=== PATIENT | female | born 1975 | race Caucasian/White ===

== ENCOUNTER 2024-07-07 11:53 | Emergency (ER) | payer MEDICAID, SELFPAY ==
[2024-07-07 11:54] VITALS: BP 128/75; PULSE 69; RESP 15; TEMP 36.1; O2SAT 98; BMI 41.5
--- NOTE | 2024-07-07 12:16 | EX.ED.VIS.UR ---
HPI <MAYNOR Zhu - Last Filed: 07/07/24 14:21> HPI - URI History of Present Illness Chief Complaint: Ear Problem Narrative Narrative: Patient presenting today due to pain, swelling, and redness to her left tragus that started last Monday. She went to urgent care on Monday and they started her on amoxicillin. She has had no relief and went back to urgent care today and they recommended she come here for evaluation. She reports swelling that extends down the left side of her neck. She denies fevers, chills, hearing loss, and injury to the area. She has a PMH of T2DM. ROS <MAYNOR Zhu - Last Filed: 07/07/24 14:21> ROS ED Constitutional Constitutional ED: Denies chills or fever(s) ENT ENT ED: Reports ear pain left Cardiovascular Cardiovascular: Denies chest pain Respiratory/Chest Respiratory/Chest: Denies dyspnea Gastrointestinal Gastrointestinal: Denies abdominal pain, nausea or vomiting Musculoskeletal Musculoskeletal: Denies arthralgias or myalgias Integumentary Denies rash Neurologic Neurologic: Denies weakness PFSH <MAYNOR Zhu - Last Filed: 07/07/24 14:21> PFSH Medical History no medical history Home Medications ?Medication ?Instructions ?Recorded ?Last Taken ?Type amoxicillin 875 mg-potassium 1 tab PO BID #14 tabs 07/07/24 Unknown Rx clavulanate 125 mg tablet Allergy/AdvReac Type Severity Reaction Status Date / Time No Known Allergies Allergy Verified 07/07/24 11:57 Family History no significant family his Surgical History no surgical history Social History Smoking Status: Current some day smoker tobacco type: cigarettes EXAM <MAYNOR Zhu - Last Filed: 07/07/24 14:21> Physical Exam Const Vital Signs: 07/07/24 11:54 07/07/24 13:58 Temperature 97 F L 96.1 F L Temperature Source Temporal Pulse Rate 69 65 Respiratory Rate 15 17 Blood Pressure 128/75 H 155/101 H Blood Pressure Mean 92 119 Pulse Ox 98 96 Oxygen Delivery Method Room Air Positive well nourished, well developed and no apparent distress General Appearance ED: well developed HEENT Reports normocephalic and head/scalp atraumatic HEENT Narrative: Bilateral TM and EAC clear, no pain to the bilateral mastoid processes. Pain, erythema, and swelling to the left tragus. Mild swelling to the left parotid gland. Mouth ED: Yes moist mucous membranes normal Throat: posterior oropharynx normal Eyes PERRL and EOMs intact bilaterally Neck full ROM and supple Neck Narrative: Left cervical anterior lymphadenopathy Chest Wall inspection of chest normal Resp normal respiratory effort and clear to auscultation bilaterally Cardio regular rate and regular rhythm Back/Spine normal ROM and normal to inspection Extremity normal to inspection and full ROM Neuro oriented x3, CN's II-XII intact bilaterally, moves all extremities, no focal motor deficits and no sensory deficits noted Sensorium / Orientation: awake and alert Psych mental status grossly normal and thought process normal Skin no rashes or lesions noted and no wounds <Dr. Davis Webb DO - Last Filed: 07/07/24 13:36> Physical Exam Const Vital Signs: 07/07/24 11:54 07/07/24 13:58 Temperature 97 F L 96.1 F L Temperature Source Temporal Pulse Rate 69 65 Respiratory Rate 15 17 Blood Pressure 128/75 H 155/101 H Blood Pressure Mean 92 119 Pulse Ox 98 96 Oxygen Delivery Method Room Air MDM <MAYNOR Zhu - Last Filed: 07/07/24 14:21> [facility] Narrative Medical decision making narrative: Patient presenting today due to concerns for slight swelling and erythema to the left tragus that has been ongoing since Monday she also developed slight swelling to the left parotid gland. Her EAC and TMs are clear bilaterally. No mastoid tenderness bilaterally. Exam is not consistent with malignant otitis externa. CBC obtained to assess for leukocytosis and is negative, BMP negative for kidney dysfunction or electrolyte derangement. CT scan soft tissue neck with IV contrast obtained to better assess the area and shows enlargement of the left parotid gland with reactive lymph nodes, findings are nonspecific but may represent parotitis. She also has mild thickening of the left auricular cartilage. She is currently taking amoxicillin, I will switch her to Augmentin. I did refer her to ENT and recommended she follow-up with either her PCP or ENT in the next 5 to 7 days. Return instructions were discussed with her. I recommended she apply warm compresses to the area and also she can try sucking on a sugar-free sour candy. She will be discharged home in stable condition. Lab Data Labs: Laboratory Results - last 24 hr 07/07/24 12:33 WBC 7.6 RBC 4.28 Hgb 12.4 Hct 38.4 MCV 89.7 MCH 29.0 MCHC 32.3 RDW Std Deviation 48.6 H RDW Coeff of Aiden 15.0 H Plt Count 246 MPV 12.7 H Immature Gran % (Auto) 0.400 Neut % (Auto) 63.7 Lymph % (Auto) 27.0 [place] % (Auto) 7.0 Eos % (Auto) 1.5 Baso % (Auto) 0.4 Absolute Neuts (auto) 4.8 Absolute Lymphs (auto) 2.04 Nucleated RBC % 0 Sodium 138 Potassium 4.1 Chloride 105 Carbon Dioxide 23.3 Anion Gap 10 BUN 12 Creatinine 0.77 Estim Creat Clear Calc 113.47 Est GFR (MDRD) Non-Af 95 BUN/Creatinine Ratio 15.8 Glucose 187 H Calcium 8.8 Radiography Diagnostic Testing: Clinical Impression(s) from Imaging Studies Soft Tissue Neck CT 07/07/24 12:26 IMPRESSION: 1. Asymmetric enlargement of the left parotid gland with scattered intraperitoneal nodes, likely reactive. Findings are nonspecific and may represent parotitis due to infection or inflammatory process. If patient's symptoms do not subside after treatment, recommend MRI in four weeks to evaluate for additional causes. 2. Mild asymmetric thickening of the left auricular cartilage, which is indeterminate in etiology but may represent perichondritis. No obvious extension into the external auditory canal. Clinical and physical exam correlation recommended. Reading Location: [id number] <Dr. Davis Webb, DO - Last Filed: 07/07/24 13:36> [facility] Lab Data Labs: Laboratory Results - last 24 hr 07/07/24 12:33 WBC 7.6 RBC 4.28 Hgb 12.4 Hct 38.4 MCV 89.7 MCH 29.0 MCHC 32.3 RDW Std Deviation 48.6 H RDW Coeff of Aiden 15.0 H Plt Count 246 MPV 12.7 H Immature Gran % (Auto) 0.400 Neut % (Auto) 63.7 Lymph % (Auto) 27.0 [place] % (Auto) 7.0 Eos % (Auto) 1.5 Baso % (Auto) 0.4 Absolute Neuts (auto) 4.8 Absolute Lymphs (auto) 2.04 Nucleated RBC % 0 Sodium 138 Potassium 4.1 Chloride 105 Carbon Dioxide 23.3 Anion Gap 10 BUN 12 Creatinine 0.77 Estim Creat Clear Calc 113.47 Est GFR (MDRD) Non-Af 95 BUN/Creatinine Ratio 15.8 Glucose 187 H Calcium 8.8 Radiography Diagnostic Testing: Clinical Impression(s) from Imaging Studies Soft Tissue Neck CT 07/07/24 12:26 IMPRESSION: 1. Asymmetric enlargement of the left parotid gland with scattered intraperitoneal nodes, likely reactive. Findings are nonspecific and may represent parotitis due to infection or inflammatory process. If patient's symptoms do not subside after treatment, recommend MRI in four weeks to evaluate for additional causes. 2. Mild asymmetric thickening of the left auricular cartilage, which is indeterminate in etiology but may represent perichondritis. No obvious extension into the external auditory canal. Clinical and physical exam correlation recommended. Reading Location: [facility] Treatment and Re-Evaluation Narrative: I have personally performed a face to face assessment of the patient and have reviewed the SU Note. I performed a substantive portion of the visit including all aspects of the following. My laurent findings include: History: Patient presents with pain and swelling to the left anterior ear. Patient states she went to the urgent care and was started on amoxicillin. Patient states this has not been helping. Patient states it is gradually getting worse. Patient describes the pain as sharp. Patient states nothing makes it better and nothing makes it worse. Patient admits to some subjective fevers but denies any chills. Exam: Vital signs are stable. Patient is afebrile. Patient is in no acute distress. The left external auditory canal and tympanic membrane are clear. There is some erythema over the tragus. There is some edema and mild tenderness anterior to the left ear in the parotid area. There is no fluctuance. There is no discharge or drainage. There is no purulent drainage from Stensen's duct. Neck is supple. Trachea is midline. There is no JVD. Heart was regular rate and rhythm. Lungs are clear and equal bilaterally. Cranial nerves II through XII are intact. There are no focal motor or sensory deficits noted. Medical Decision Making: Differential diagnosis includes abscess, parotitis, cellulitis, and otitis externa. CT scan of the soft tissue neck will be obtained to assess for abscess and parotitis. CBC will be obtained to assess for leukocytosis and anemia. Basic metabolic profile will be obtained to assess for electrolyte abnormality and renal function. Patient was given a dose of Toradol here. CBC was reviewed and was within normal limits. Basic metabolic profile was reviewed. Glucose was mildly elevated at 187. The remainder is within normal limits. CT scan of the soft tissue neck was obtained. There is asymmetric enlargement of the left parotid gland with scattered intraparotid lymph nodes. These are likely reactive. There is mild thickening of the left auricular cartilage. There is no abscess noted. There is no extension into the external auditory canal. This was interpreted by the radiologist and was also independently reviewed by myself. Patient was advised of her findings. Patient was switched to Augmentin. Patient was instructed to stop the amoxicillin. Patient was instructed to follow-up with her primary care physician in 5 to 7 days. Patient was instructed return if worse in any way. Patient understood and was agreeable with the plan. All questions were answered. Discharge Plan Triage Chief Complaint: Ear Problem ED Midlevel Provider: Elmira Quijano ED Provider: Davis Webb Dx/Rx/DC Orders Clinical Impression: Swelling of left external ear, Parotid gland fullness Instructions: ED Salivary Gland Swelling UKO Prescriptions: New amoxicillin-pot clavulanate 875-125 mg tablet 1 tab PO BID Qty: 14 0RF Primary Care Provider: Care Physician,No Primary Referrals: Madi Gifford MD [Med Staff - Courtesy Staff] - 1 Week Care Physician,No Primary [Primary Care Provider] - Activity Restrictions/Additional Instructions: Follow-up with ENT in 1 week if no improvement of your symptoms. Apply warm compresses to the area several times daily. You could also try sucking on sugar-free sour candy to help produce saliva. Print Language: Cymro Disposition Disposition: Home, Self Care Discharge Date/Time: 07/07/24 13:59
--- NOTE | 2024-07-07 12:26 | CT_ITS ---
PROCEDURE: SOFT TISSUE NECK WITH CONTRAST 07/07/2024 REASON FOR EXAM: 49-year-old female, L TRAGUS AND PAROTID SWELLING TECHNIQUE: CT of the soft tissues of the neck from the orbits to the upper mediastinum with intravenous contrast. CONTRAST: Isovue 370 VOLUME: 100 mL One or more dose reduction techniques were used (e.g., Automated exposure control, adjustment of the mA and/or kV according to patient size, use of iterative reconstruction technique). RADIATION DOSE SUMMARY: CTDlvol: 20 mGy DLP: 600 mGycm COMPARISON: None. FINDINGS: Airway: Midline and patent. Salivary glands: Asymmetric enlargement of the left parotid gland with scattered intraparotid lymph nodes. No discrete mass visualized. The bilateral submandibular glands are unremarkable. Lymph nodes: Prominent left cervical chain nodes, for example a left level IIb lymph node (series 2, image 56) and left level Vc node (series 2, image 54). Thyroid: Unremarkable. Vasculature: Carotid arteries and internal jugular veins are unremarkable. Orbits: Unremarkable at visualized levels. Paranasal sinuses and mastoids: The mastoids and visualized paranasal sinuses are well-aerated. Lung apices: Clear. Upper mediastinum: Visualized mediastinum is unremarkable. Bones: Multilevel degenerative changes of the spine. Other: Mild asymmetric thickening of the left auricular cartilage. No obvious inflammation of the external auditory canal. CT/Soft Tissue Neck WITH Contrast IMPRESSION: 1. Asymmetric enlargement of the left parotid gland with scattered intraperiton eal nodes, likely reactive. Findings are nonspecific and may represent parotitis due to infection or inflammatory proces s. If patient's symptoms do not subside after treatment, recommend MRI in four weeks to evaluate for additional causes. 2. Mild asymmetric thickening of the left auricular cartilage, which is indeter minate in etiology but may represent perichondritis. No obvious extension into the external auditory canal. Clinic al and physical exam correlation recommended. Reading Location: [id number]
[2024-07-07 12:57] LABS: Anion Gap 10 (5-15); BUN 12 mg/dL (4-19); BUN/Creat Ratio 15.8 RATIO (10-20); Calcium,Total 8.8 mg/dL (7.6-11.0); Carbon Dioxide 23.3 mmol/L (21.0-32.0); Chloride 105 mmol/L (98-108); Creatinine, Serum 0.77 mg/dL (0.70-1.20); EST Glomerular Filtration Rate 95 (>60); Estimated Creatinine Clearance 113.47 ml/min (50-250); Glucose 187 mg/dL (70-99); Potassium 4.1 mmol/L (3.3-5.1); Sodium Level 138 mmol/L (133-145)
[2024-07-07 13:01] LABS: Absolute Lymphocyte Count 2.04 X10^3/uL (0.83-4.51); Absolute Neutrophil Count 4.8 X10^3/uL (2.0-7.7); Basophil# 0.03 X10^3/uL; Basophil% 0.4 % (0-1); Eosinophil# 0.11 X10^3/uL; Eosinophils% 1.5 % (0-5); Hematocrit 38.4 % (37-47); Hemoglobin 12.4 g/dL (12.0-15.0); Lymphocyte # 2.04 X10^3/ul (0.83-4.51); Mean Corp Hgb Conc 32.3 g/dL (32-36); Mean Corpuscular Volume 89.7 fL (81-99); Mean Platelet Vol. 12.7 fl (6.2-12.0); Monocyte# 0.53 X10^3/uL; NRBC Flagged by Analyzer 0 % (0-5); Neutrophil # 4.82 X10^3/uL (2.7-7.7); Neutrophil % 63.7 % (47-70); Platelet Count 246 K/mm3 (150-450); RBC Distribution Width SD 48.6 fl (35.1-43.9); Red Blood Count 4.28 M/mm3 (4.2-5.4); White Blood Count 7.6 K/mm3 (4.4-11.0)
[2024-07-07] MEDS: Ketorolac 15 MG/ML Vial IV (13:06)
[2024-07-07 13:58] VITALS: BP 155/101; PULSE 65; RESP 17; TEMP 35.6; O2SAT 96
== END 2024-07-07 13:59 | disposition home or self-care (01) ==
PROVIDERS: Physician Assistant; Emergency Provider Emergency Medicine; Visit Provider Emergency Medicine
DX: H93.8X2 Other specified disorders of left ear (principal); E11.9 Type 2 diabetes mellitus without complications; K11.8 Other diseases of salivary glands; F17.210 Nicotine dependence, cigarettes, uncomplicated
CPT/HCPCS: 70491; 80048; 85025; 96374; 99282; Q9967; A4216

== ENCOUNTER 2024-09-20 08:45 | Emergency (ER) | payer MEDICAID, SELFPAY ==
[2024-09-20 08:45] VITALS: BP 152/109; PULSE 88; RESP 16; TEMP 36.8; O2SAT 97; BMI 41.0
--- NOTE | 2024-09-20 09:17 | EX.ED.DYSGE1 ---
HPI History of Present Illness Chief Complaint: Rash Informant: patient Narrative Narrative: Patient is a 49-year-old female with history of diabetes mellitus (on weekly Trulicity as well as metformin) and hypertension presenting with rash to her hands and her feet. Been going on for about a month. She feels it is worsening. States it started as small splotches on her hands. She states it is itchy and she has a pins and needle sensation in her feet which is making it very hard for her to sleep. Was seen at urgent care earlier on the course and given some type of cream which does not recall the name of it. She states she ran out of the cream but did not think it was very helpful. Has never had a rash like this before. Was see about 2 months ago for swollen lymph node on her neck. She notes she has had very mild allergy symptoms and has not thought much of it. She denies any fevers. Denies any known history of syphilis or new sexual partners. Denies any other systemic symptoms. Is tried taking Tylenol as well with no relief. Notes her blood sugars have been running a little higher lately. Chart review shows that patient was seen on for left-sided submandibular swelling. Had CT consistent with asymmetric enlargement of left parotid gland with scattered intraparotid nodes, likely reactive. Most consistent with parotitis infectious versus inflammatory etiology. There is also some swelling of the left auricular cartilage which was indeterminant but could be perichondritis. Patient was treated with a course of Augmentin at that time. [facility] Medical History HTN (hypertension) Diabetes mellitus, type II Home Medications ?Medication ?Instructions ?Recorded ?Last Taken ?Type amoxicillin 875 mg-potassium 1 tab PO BID #14 tabs 07/07/24 Unknown Rx clavulanate 125 mg tablet cetirizine 10 mg tablet (Zyrtec) 10 mg PO DAILY #14 tabs 09/20/24 Unknown Rx clobetasol 0.05 % topical ointment 1 applic topical BID 2 weeks #60 09/20/24 Unknown Rx grams gabapentin 100 mg capsule 100 mg PO BID PRN nerve pain #20 09/20/24 Unknown Rx caps Allergy/AdvReac Type Severity Reaction Status Date / Time No Known Allergies Allergy Verified 09/20/24 08:45 Social History Smoking Status: Current some day smoker tobacco type: cigarettes ROS ROS ED Constitutional Constitutional ED: Denies chills or fever(s) ENT ENT ED: Denies sore throat Cardiovascular Cardiovascular: Denies chest pain Respiratory/Chest Respiratory/Chest: Denies cough or dyspnea Gastrointestinal Gastrointestinal: Denies nausea or vomiting Musculoskeletal Musculoskeletal: Denies arthralgias or myalgias Integumentary Reports rash Neurologic Neurologic: Reports paresthesias and other Details: Pins and needle sensation of the feet?new over the past month ; Denies weakness EXAM Physical Exam Const Vital Signs: 09/20/24 08:45 Temperature 98.2 F Temperature Source Oral Pulse Rate 88 Respiratory Rate 16 Blood Pressure 152/109 H Blood Pressure Mean 123 Pulse Ox 97 Oxygen Delivery Method Room Air Positive well nourished and well developed General Appearance ED: well developed and NAD HEENT Reports TM's clear and moist mucous membranes HEENT Narrative: Normal external ears. No pain with palpation of the ears. Subtle lymphadenopathy present of the left submandibular neck. Normal oropharynx. No lesions in the throat noted. Tympanic Membrane ED: Yes TM's clear Eyes PERRL Neck supple Chest Wall inspection of chest normal and palpation of chest normal Resp normal respiratory effort and clear to auscultation bilaterally Cardio regular rate and regular rhythm GI normal to inspection, nondistended, normoactive bowel sounds and non-tender Extremity normal to inspection Extremity Narrative: Mild tenderness in the bilateral feet around the heels. General Extremety ED: Negative for edema General Extremity: Negative for edema Neuro oriented x3 Sensorium / Orientation: alert Skin Skin Narrative: Scattered erythematous rash of the hands (including the palms) and feet (including the soles). There are mixed sizes of lesions in various stages of healing with scaling noted on the hands and the feet. Nonblanching with circumferential lesions that do seem to cluster around the cuticles, slightly raised as well as just throughout the hands/feet with mild tracking proximately throughout. Negative Nikolsky sign. No splinter hemorrhages appreciated. MDM MDM MDM Narrative Medical decision making narrative: Patient valuated for painful and itchy rash to her hands and feet. She is clinically well-appearing. No systemic symptoms. Differential includes secondary syphilis, dermatitis (suspect dyshidrotic eczema), viral illness. Will check basic labs including syphilis titer. These are largely normal. Glucose mildly elevated at 158. She does have a history of diabetes and I would like to avoid systemic steroids at this time. Patient reports understand this. Patient will give referral for dermatology. Will be started on superhigh potency steroids for this (clobetasol), daily Zyrtec and given short prescription for gabapentin for the pain in her feet as it is more of a neuropathy type pain. Is given follow-up information for dermatology. Discussed at this time I think this is safe for outpatient follow-up but likely more immune mediated versus allergy. She verbalized understanding of this. Discharged home in stable condition. Lab Data Attestation: I reviewed the patient's lab results. Labs: Laboratory Results - last 24 hr 09/20/24 09:13 WBC 8.7 RBC 4.41 Hgb 12.6 Hct 38.9 MCV 88.2 MCH 28.6 MCHC 32.4 RDW Std Deviation 50.8 H RDW Coeff of Aiden 15.7 H Plt Count 270 MPV 12.2 H Immature Gran % (Auto) 0.200 Neut % (Auto) 66.2 Lymph % (Auto) 24.7 [place] % (Auto) 7.3 Eos % (Auto) 1.1 Baso % (Auto) 0.5 Absolute Neuts (auto) 5.8 Absolute Lymphs (auto) 2.15 Nucleated RBC % 0 Sodium 141 Potassium 4.0 Chloride 107 Carbon Dioxide 23.5 Anion Gap 11 BUN 17 Creatinine 0.82 Estim Creat Clear Calc 105.67 Est GFR (MDRD) Non-Af 89 BUN/Creatinine Ratio 21.1 H Glucose 158 H Calcium 9.0 Total Bilirubin 0.31 AST 35 H ALT 60 H Alkaline Phosphatase 95 Total Protein 7.0 Albumin 4.0 Globulin 3.0 Albumin/Globulin Ratio 1.3 Syphilis Total Ab Nonreactive Discharge Plan Triage Chief Complaint: Rash ED Provider: Kerry Rutherford Dx/Rx/DC Orders Clinical Impression: Dermatitis, History of diabetes mellitus Instructions: ED Atopic Dermatitis (Adult) Prescriptions: New clobetasol 0.05 % ointment 1 applic topical BID 14 Days Qty: 60 0RF cetirizine [Zyrtec] 10 mg tablet 10 mg PO DAILY Qty: 14 0RF gabapentin 100 mg capsule 100 mg PO BID PRN (Reason: nerve pain) Qty: 20 0RF Rx Instructions: Start with once a day for 2 to 3 days and then may increase to twice a day after that. No Action amoxicillin-pot clavulanate 875-125 mg tablet 1 tab PO BID Qty: 14 0RF Primary Care Provider: Care Physician,No Primary Referrals: Bakari Tanner MD [Med Staff - Graphic Editor] - Care Physician,No Primary [Primary Care Provider] - Activity Restrictions/Additional Instructions: Your lab work was largely normal. Your blood sugar was mildly elevated at 158. Continue take your diabetic medications. I suspect this is some type of dermatitis likely dyshidrotic eczema versus viral (I suspect this is less likely). You been given a topical potent steroids to apply to your hands and feet twice a day. In the meantime try to use good lotion multiple times throughout the day to keep the skin nice and moist. I recommend Eucerin eczema lotion. And oil based lotion is preferred to a water base lotion. Please follow-up with dermatology. Print Language: Macedonian Disposition Disposition: Home, Self Care
[2024-09-20 09:22] LABS: Absolute Lymphocyte Count 2.15 X10^3/uL (0.83-4.51); Absolute Neutrophil Count 5.8 X10^3/uL (2.0-7.7); Basophil# 0.04 X10^3/uL; Basophil% 0.5 % (0-1); Eosinophils% 1.1 % (0-5); Hematocrit 38.9 % (37-47); Hemoglobin 12.6 g/dL (12.0-15.0); Lymphocyte # 2.15 X10^3/ul (0.83-4.51); Lymphocyte % 24.7 % (19-41); Mean Corp Hgb Conc 32.4 g/dL (32-36); Mean Corpuscular Hgb 28.6 pg (27.0-32.0); Mean Corpuscular Volume 88.2 fL (81-99); Mean Platelet Vol. 12.2 fl (6.2-12.0); Monocyte# 0.64 X10^3/uL; Monocyte% 7.3 % (0-10); NRBC Flagged by Analyzer 0 % (0-5); Neutrophil # 5.76 X10^3/uL (2.7-7.7); Neutrophil % 66.2 % (47-70); Platelet Count 270 K/mm3 (150-450); RBC Distribution Width CV 15.7 % (11.6-14.6); RBC Distribution Width SD 50.8 fl (35.1-43.9); Red Blood Count 4.41 M/mm3 (4.2-5.4); White Blood Count 8.7 K/mm3 (4.4-11.0)
[2024-09-20 09:55] LABS: ALB/GLOB Ratio 1.3 RATIO (0.9-2.4); AST(SGOT) 35 U/L (<=31); Alanine Aminotransfer ALT/SGPT 60 U/L (<=34); Alkaline Phosphatase 95 U/L (35-104); Anion Gap 11 (5-15); BUN 17 mg/dL (4-19); BUN/Creat Ratio 21.1 RATIO (10-20); Carbon Dioxide 23.5 mmol/L (21.0-32.0); Chloride 107 mmol/L (98-108); Creatinine, Serum 0.82 mg/dL (0.70-1.20); EST Glomerular Filtration Rate 89 (>60); Estimated Creatinine Clearance 105.67 ml/min (50-250); Glucose 158 mg/dL (70-99); Sodium Level 141 mmol/L (133-145); Syphilis Antibodies Nonreactive (Nonreactive); Total Bilirubin 0.31 mg/dL (0.00-1.30)
--- OUTSIDE RECORDS SUMMARY | 2024-09-20 10:08 | XMS RPT_ITS | CCD ---
Demographics Address [address] [place] [address] Mobile Phone Preferred Language en Marital Status Voodoo Affiliation Unknown Race White Ethnic Group Not or Lati no Author Organization [facility] Care Team Providers Care Staff Field Engineer Name Role Phone DELILAH KALI Attending Unavailable [facility] Unavailable EDWARDS EDWARDS, CHAGO CHAGO PALAK~[id number] Att ending Unavailable EDWARDS EDWARDS, CHAGO CHAGO PALAK~[id number] Att ending Unavailable PERI, AYAD Primary Care Unavailable EDWARDS EDWARDS, CHAGO CHAGO PALAK~[id number] [facility] Care Unavailable HEATHER SOTO Attending Unavailable EDWARDS EDWARDS, CHAGO CHAGO PALAK~[id number] Att ending Unavailable EDWARDS EDWARDS, CHAGO CHAGO PALAK~[id number] Ref erring Unavailable [facility] Primary Care Unavailable EDWARDS EDWARDS, CHAGO CHAGO PALAK~[id number] Att ending Unavailable EDWARDS EDWARDS, CHAGO CHAGO PALAK~[id number] Ref erring Unavailable [facility] Primary Care Unavailable Jerry, DO Chago Palak Primary Care Provider MD Julianne Carroll Attending Provider DO Loc Dey Attending Provider DO Loc Dey Emergency Provider DO Álvaro Palomino Attending Provider DO Merrick Edwardsolas Palak Primary Care Provider DO Solo Sanchez Emergency Provider Provider, ED Emergency Provider Unavailable MD Gus Dunn Attending Provider DO Merrick Edwardsolas Palak Primary Care Provider DO Solo Sanchez Attending Provider DO Solo Sanchez Emergency Provider MD Mathew Taylor Attending Provider Provider, ED Emergency Provider Unavailable MD Gus Dunn Attending Provider [phone] MARCOS Espinosa Attending Provider MARCOS Espinosa Other Provider DO Nirmala Mani Emergency Provider [phone] DO Álvaro Palomino Attending Provider NADYA Gil Attending Provider AreNADYA crenshaw Emergency Provider DO Mani Silvestre Emergency Provider DO Burt Blunt Attending Provider Shaunna Estevez Attending Provider Shaunna Estevez Other Provider DO Graham Baum Attending Provider DO Chago Edwards Primary Care Provider DO Solo Sanchez Attending Provider [phone] DO Solo Sanchez Emergency Provider [phone] MD Mathew Taylor Attending Provider [phone] MARCOS Espinosa Attending Provider MARCOS Espinosa Other Provider [phone] NADYA Gil Attending Provider [phone] AreNADYA crenshaw Emergency Provider DO Mani Silvestre Emergency Provider [phone] DO Burt Blunt Attending Provider DO Álvaro Palomino Attending Provider Shaunna Estevez Attending Provider [phone] Shaunna Estevez Other Provider DO Graham Baum Attending Provider DO Roman Breaux Attending Provider NADYA Lema Attending Provider [phone] NADYA Lema Other Provider Gus Block Primary Care Provider Unavailabl e Daniel, DO Banda Attending Provider [phone] DO Solo Sanchez Emergency Provider [phone] DO Roman Breaux Other Provider [phone] DO Chago Edwards Primary Care Provider Roman Breaux Attending Unavailable Torey, Sagar Attending Unavailable Dittenhofer, Roman Consulting Unavailable Tree Reardon Attending Unavailable Dittenhofer, Roman Attending Unavailable Dittenhofer, Roman Consulting Unavailable Dittenhofer, Roman Attending Unavailable Eizman, Tamara Attending Unavailable Cata Boss Attending Unavailable Dittenhofer, Roman Consulting Unavailable Dittenhofer, Roman Attending Unavailable Dittenhofer, Roman Attending Unavailable Dittenhofer, Roman Attending Unavailable Dittenhofer, Roman Consulting Unavailable WhismShaunna marquez Attending Unavailable Nichelle Gil Attending Unavailable Eizman, Tamara Attending Unavailable Eizman, Tamara Consulting Unavailable Torey, Sagar Attending Unavailable Torey, Sagar Consulting Unavailable Dittenhofer, Roman Attending Unavailable Dittenhofer, Roman Attending Unavailable Dittenhofer, Roman Attending Unavailable WhismShaunna marquez Consulting Unavailable Graham Baum Attending Unavailable Burt Blunt Attending Unavailable Álvaro Palomino Attending Unavailable Care Physician, No Primary Primary Care Provider Unavailable Dr. Davis Webb DO Emergency Provider Davis Webb Attending Unavailable Care Physician, No Primary Primary Care Unava ilable Allergies Allergy Classification Reported Allergen(s) Allergy Type Date of Onset Reaction(s) Facility (11 sources) HYDROmorphone; Translations: [HYDROMORPHONE] Drug Allergy 12-17-2021 Itching [facility] Repository (1 source) Sertraline; Translations: [SERTRALINE] Drug Allergy [facility] Repository Medications Current Medications Medication Drug Class(es) Dates Sig (Normalized) Sig (Original) amLODIPine 5 mg oral tablet (8 sources) Dihydropyridine Calcium Channel Scott Start: 04-14-2021 take 5 mg by mouth once daily Amlodipine Active 5 MG ORAL DAILY April 14, 2021 12:00am Start: 04-14-2021 take 1 mg by mouth once daily Amlodipine Active MG ORAL DAILY April 14, 2021 12:00am amoxicillin 875 mg / clavulanate 125 mg oral tablet (1 source) Penicillin-class Antibacterial Start: 07-07-2024 Amoxicillin-Pot Clavulanate 875-125 mg tablet Active 1 {tbl} PO TWICE A DAY July 07, 2024 12:00am benazepril hydrochloride 20 mg / hydroCHLOROthiazide 25 mg oral tablet (7 sources) Thiazide Diuretic, Angiotensin Converting Enzyme Inhibitor Start: 06-02-2022 take 1 tablet by mouth once daily Benazepril-Hydroch lorothiazide Active 1 TABLET ORAL DAILY June 02, 2022 12:00am cholecalciferol 0.05 mg oral tablet (7 sources) Vitamin D Start: 06-02-2022 take 2000 [IU] by mouth once daily Cholecalciferol (Vitamin D3) Active 2000 UNIT ORAL DAILY June 02, 2022 12:00am cloNIDine hydrochloride 0.1 mg oral tablet (16 sources) Central alpha-2 Adrenergic Agonist Start: 10-22-2020 take 0.1 mg by mouth twice daily Clonidine Hcl Active 0.1 MG ORAL TWICE A DAY October 21, 2020 11:00pm Start: 06-29-2020 End: 11-11-2020 take 1 mg by mouth in the evening Clonidine Hcl Discontinued MG ORAL In the EVENING June 28, 2020 11:00pm November 11, 2020 12:45pm 24 hr diclofenac sodium 100 mg extended release oral tablet (8 sources) Nonsteroidal Anti-inflammatory Drug Start: 10-22-2020 take 100 mg by mouth once daily Diclofenac Sodium Active 100 MG ORAL DAILY October 21, 2020 11:00pm 0.5 ml dulaglutide 1.5 mg/ml auto-injector (7 sources) GLP-1 Receptor Agonist Start: 06-02-2022 Dulaglutide (Trulicity) 0.75 mg/0.5 mL pen injector Active 0.75 MG SUBCUT MO June 02, 2022 12:00am will hold for 7 days empagliflozin 25 mg oral tablet (7 sources) Sodium-Glucose Cotransporter 2 Inhibitor Start: 06-02-2022 take 1 tablet by mouth once daily Empagliflozin (Jardiance) 25 mg tablet Active 25 MG ORAL DAILY June 02, 2022 12:00am will hold for 3 days and the day of procedure ergocalciferol 1.25 mg oral capsule (7 sources) Provitamin D2 Compound Start: 06-02-2022 take 65229 [IU] by mouth every week Ergocalciferol (Vitamin D2) Active 84129 UNIT ORAL WEEKLY June 02, 2022 12:00am Start: 06-02-2022 take 25963 [IU] by mouth once Ergocalciferol (Vitamin D2) Active 29556 UNIT ORAL MO June 02, 2022 12:00am lovastatin 20 mg oral tablet (8 sources) HMG-CoA Reductase Inhibitor Start: 04-14-2021 take 20 mg by mouth once daily Lovastatin Active 20 MG ORAL DAILY April 14, 2021 12:00am metFORMIN hydrochloride 500 mg oral tablet (15 sources) Biguanide Start: 06-02-2022 take 1000 mg by mouth twice daily Metformin Active 1000 MG ORAL TWICE A DAY June 02, 2022 9:07pm will hold for 2 days Start: 11-14-2020 End: 06-02-2022 take 500 mg by mouth twice daily Metformin Discontinued 500 MG ORAL TWICE A DAY 60 November 13, 2020 11:00pm June 02, 2022 9:08pm metoprolol tartrate 25 mg oral tablet (8 sources) beta-Adrenergic Scott Start: 06-29-2020 take 25 mg by mouth twice daily Metoprolol Tartrate Active 25 MG ORAL TWICE A DAY June 28, 2020 11:00pm omeprazole 20 mg delayed release oral capsule (8 sources) Proton Pump Inhibitor Start: 10-22-2020 take 20 mg by mouth once daily Omeprazole Active 20 MG ORAL DAILY October 21, 2020 11:00pm Completed/Discontinued Medications Medication Drug Class(es) Dates Sig (Normalized) Sig (Original) amoxicillin 500 mg oral capsule (8 sources) Penicillin-class Antibacterial Start: 10-22-2020 End: 11-11-2020 take 500 mg by mouth three times daily Amoxicillin Discontinued 500 MG ORAL THREE TIMES A DAY 30 10 October 21, 2020 11:00pm November 11, 2020 12:43pm benazepril hydrochloride 20 mg oral tablet (8 sources) Angiotensin Converting Enzyme Inhibitor Start: 10-22-2020 End: 06-02-2022 take 20 mg by mouth at bedtime Benazepril Discontinued 20 MG ORAL Bedtime October 21, 2020 11:00pm June 02, 2022 9:05pm cetirizine hydrochloride 10 mg oral tablet (8 sources) Histamine-1 Receptor Antagonist Start: 10-22-2020 End: 06-02-2022 take 10 mg by mouth once daily Cetirizine Discontinued 10 MG ORAL DAILY October 21, 2020 11:00pm June 02, 2022 9:05pm cyclobenzaprine hydrochloride 5 mg oral tablet (6 sources) Muscle Relaxant Start: 01-03-2023 End: 05-10-2023 take 5 mg by mouth twice daily Cyclobenzaprine Discontinued 5 MG ORAL TWICE A DAY January 02, 2023 11:00pm May 10, 2023 9:07am fluconazole 150 mg oral tablet (11 sources) Azole Antifungal Start: 03-26-2023 End: 04-10-2023 Fluconazole Discontinued 150 MG ORAL Q3D March 26, 2023 12:00am April 10, 2023 4:23pm may repeat second dose 72 hrs after first dose if symptoms persist Start: 10-22-2020 End: 11-11-2020 Fluconazole (Diflucan) 150 m g tablet Discontinued 150 MG ORAL Q3D October 21, 2020 11:00pm November 11, 2020 12:46pm may repeat second dose 72 hrs after first dose if symptoms persist FLUoxetine 20 mg oral capsule (8 sources) Serotonin Reuptake Inhibitor Start: 06-29-2020 End: 06-02-2022 take 20 mg by mouth once daily Fluoxetine Discontinued 20 MG ORAL DAILY June 28, 2020 11:00pm June 02, 2022 9:05pm fluticasone propionate 0.05 mg/actuat metered dose nasal spray (8 sources) Corticosteroid Start: 10-22-2020 End: 06-02-2022 Fluticasone Propionate Discontinued 2 SPRAY NASAL DAILY October 21, 2020 11:00pm June 02, 2022 9:05pm nitrofurantoin, macrocrystals 25 mg / nitrofurantoin, monohydrate 75 mg oral capsule (11 sources) Nitrofuran Antibacterial Start: 03-26-2023 End: 04-10-2023 take 1 capsule by mouth twice daily at mealtime Nitrofurantoin Monohyd/M-Cryst (Macrobid) 100 mg capsule Discontinued 100 MG ORAL TWICE A DAY 14 March 26, 2023 12:00am April 10, 2023 4:23pm must administer with a meal/food Start: 12-18-2021 End: 06-02-2022 take 1 capsule by mouth twice daily at mealtime Nitrofurantoin Monohyd/M-Cryst (Macrobid) 100 mg capsule Discontinued 100 MG ORAL TWICE A DAY 14 December 17, 2021 11:00pm June 02, 2022 9:06pm must administer with a meal/food ondansetron 4 mg disintegrating oral tablet (13 sources) Serotonin-3 Receptor Antagonist Start: 01-06-2023 End: 03-14-2023 take 4 mg by mouth every six hours Ondansetron Discontinued 4 MG ORAL Q6H January 05, 2023 11:00pm March 14, 2023 2:14pm Start: 06-03-2022 End: 03-14-2023 take 4 mg by mouth three times daily Ondansetron Hcl Discontinued 4 MG ORAL THREE TIMES A DAY June 03, 2022 12:00am March 14, 2023 2:14pm phenazopyridine hydrochloride 200 mg oral tablet (3 sources) Start: 03-26-2023 End: 04-10-2023 take 1 tablet by mouth three times daily Phenazopyridine (Pyridium) 200 mg tablet Discontinued 200 MG ORAL THREE TIMES A DAY 6 March 26, 2023 12:00am April 10, 2023 4:23pm Problems Active Problems Problem Classification Problem Date Documented Da te Episodic/Chronic Abdominal pain (7 sources) Abdominal pain; Translations: [Unspecified abdominal pain] Onset: 03-14-2023 03-16-2023 Episodic Coma; stupor; and brain damage (1 source) Somnolence; Translations: [Hypersomnia, unspecified] Episodic Diabetes mellitus with complications (8 sources) Hyperglycemia due to type 2 diabetes mellitus; Translations: [Type 2 diabetes mellitus with hyperglycemia] 11-12-2020 Chronic Diseases of mouth; excluding dental (1 source) Salivary gland finding; Translations: [Other diseases of salivary glands] 07-07-2024 Episodic Diverticulosis and diverticulitis (8 sources) Diverticular disease; Translations: [Diverticulosis of intestine, part unspecified, without perforation or abscess without bleeding] Onset: 03-14-2023 03-16-2023 Chronic Essential hypertension (2 sources) Essential (primary) hypertension; Translations: [Unspecified essential hypertension] Onset: 11-10-2020 Chronic Genitourinary symptoms and ill-defined conditions (5 sources) Dysuria; Translations: [Dysuria] Onset: 01-03-2023 03-26-2023 Episodic Hypertension with complications and secondary hypertension (8 sources) Hypertensive emergency; Translations: [Hypertensive emergency] 11-11-2020 Chronic Malaise and fatigue (1 source) Other fatigue; Translations: [Other malaise and fatigue] Episodic Menstrual disorders (2 sources) Excessive and frequent menstruation with irregular cycle; Translations: [Excessive and frequent menstruation with irregular cycle] Onset: 01-30-2023 Chronic Mycoses (1 source) Candidiasis, unspecified; Translations: [Candidiasis, unspecified] Onset: 03-26-2023 Episodic Nonspecific chest pain (8 sources) Chest pain; Translations: [Chest pain, unspecified] 11-13-2020 Episodic Other and unspecified benign neoplasm (1 source) Hyperplastic polyp of large intestine; Translations: [Polyp of colon] 06-06-2023 Episodic Other and unspecified benign neoplasm (2 sources) Polyp of colon; Translations: [Benign neoplasm of colon] Onset: 06-06-2023 06-06-2023 Episodic Other ear and sense organ disorders (1 source) Disorder of left external ear; Translations: [Other specified disorders of left external ear] 07-07-2024 Episodic Other ear and sense organ disorders (1 source) Otalgia, left ear; Translations: [Otalgia, left ear] Onset: 07-11-2024 Episodic Other gastrointestinal disorders (3 sources) Stool DNA-based colorectal cancer screening positive; Translations: [Other fecal abnormalities] 03-16-2023 Episodic Other gastrointestinal disorders (8 sources) Other fecal abnormalities; Translations: [Abnormal feces] Onset: 03-14-2023 03-14-2023 Episodic Other hematologic conditions (8 sources) Raised cardiac enzyme or marker; Translations: [Other specified abnormalities of plasma proteins] 11-11-2020 Episodic Other liver diseases (3 sources) Steatosis of liver; Translations: [Fatty (change of) liver, not elsewhere classified] 03-16-2023 Chronic Other liver diseases (4 sources) Fatty (change of) liver, not elsewhere classified; Translations: [Other chronic nonalcoholic liver disease] Onset: 03-14-2023 03-14-2023 Chronic Other nervous system disorders (1 source) Mononeuropathy, unspecified; Translations: [Mononeuropathy, unspecified] Onset: 01-03-2023 Chronic Other screening for suspected conditions (not mental disorders or infectious disease) (17 sources) Patient encounter status; Translations: [Encounter for other screening for malignant neoplasm of breast] Onset: 05-15-2023 06-29-2020 Episodic Spondylosis; intervertebral disc disorders; other back problems (6 sources) Low back pain; Translations: [Chronic lumbosacral pain] 01-03-2023 Episodic Substance-related disorders (1 source) Other psychoactive substance dependence, uncomplicated; Translations: [Other psychoactive substance dependence, uncomplicated] Onset: 05-29-2020 Chronic Unclassified (1 source) Low back pain, unspecified; Translations: [Low back pain, unspecified] Onset: 01-03-2023 Urinary tract infections (4 sources) Acute cystitis with hematuria; Translations: [Acute cystitis] Onset: 03-26-2023 03-26-2023 Episodic Past or Other Problems Problem Classification Problem Date Documented Da te Episodic/Chronic Nausea and vomiting (1 source) Nausea with vomiting, unspecified; Translations: [Nausea with vomiting, unspecified] Onset: 01-05-2023 Episodic Other aftercare (1 source) Encounter for therapeutic drug level monitoring; Translations: [Encounter for therapeutic drug level monitoring] Onset: 05-29-2020 Episodic Results Test Name Value Interpretation Reference Range Facility Absolute neutrophil countOrd ered By: Elmira Quijano on 07-07-2024 Neutrophils (Bld) [#/Vol] 4.8 10*3/uL 2.0-7.7 [facility] Anion gap in Serum or Plasma Ordered By: Elmira Quijano on 07-07-2024 Anion gap [Moles/Vol] 10 mmol/L 5-15 [facility] BUN/creatinine ratioOrdered By: Elmira Quijano on 07-07-2024 Urea nitrogen/Creatinine [Mass ratio] 15.8 mg/mg 10-20 [facility] Basic Metabolic Profile (BMP )on 07-07-2024 BUN/CRE 15.8 RATIO Normal 10-20 [facility] Comment on above: Performed By: #### L 500.2500, L100.0100 #### [facility] [address] [place], [address] Calcium [Mass/Vol] 8.8 mg/dL Normal 7.6-11.0 [facility] Comment on above: Performed By: #### L 500.2500, L100.0100 #### [facility] [address] [place], [address] Chloride [Moles/Vol] 105 mmol/L Normal 98-108 [facility] Comment on above: Performed By: #### L 500.2500, L100.0100 #### [facility] [address] [place], [address] CO2 [Moles/Vol] 23.3 mmol/L Normal 21.0-32.0 [facility] Comment on above: Performed By: #### L 500.2500, L100.0100 #### [facility] [address] [place], [address] Creatinine [Mass/Vol] 0.77 mg/dL Normal 0.70-1.20 [facility] Comment on above: Performed By: #### L 500.2500, L100.0100 #### [facility] [address] [place], [address] ECRCL 113.47 ml/min Normal 50-250 [facility] Comment on above: Performed By: #### L 500.2500, L100.0100 #### [facility] [address] [place], [address] GAP 10 Normal 5-15 [facility] Comment on above: Performed By: #### L 500.2500, L100.0100 #### [facility] [address] [place], [address] GFR/1.73 sq M.predicted among non-blacks MDRD (S/P/Bld) [Vol rate/Area] 95 mL/min/{1.73_m2} Normal >60 [facility] Comment on above: Result Comment: mL/m in/1.73m2 CKD-EPI Creatinine Equation (2020) Performed By: #### L 500.2500, L100.0100 #### [facility] [address] [place], [address] Glucose [Mass/Vol] 187 mg/dL High 70-99 [facility] Comment on above: Performed By: #### L 500.2500, L100.0100 #### [facility] [address] [place], [address] Potassium [Moles/Vol] 4.1 mmol/L Normal 3.3-5.1 [facility] Comment on above: Performed By: #### L 500.2500, L100.0100 #### [facility] [address] [place], [address] Sodium [Moles/Vol] 138 mmol/L Normal 133-145 [facility] Comment on above: Performed By: #### L 500.2500, L100.0100 #### [facility] [address] [place], [address] Urea nitrogen [Mass/Vol] 12 mg/dL Normal 4-19 [facility] Comment on above: Performed By: #### L 500.2500, L100.0100 #### [facility] [address] [place], [address] Basophil percentageOrdered B y: Elmira Quijano on 07-07-2024 Basophils/100 WBC (Bld) 0.4 % 0-1 [facility] CBC W/Diff, Automatedon 04-0 Absolute Lymph 2.04 X10 3/uL Normal 0.83-4.51 [facility] Comment on above: Performed By: #### L 500.2500, L100.0100 #### [facility] [address] [place], [address] Absolute Neut 4.8 X10 3/uL Normal 2.0-7.7 [facility] Comment on above: Performed By: #### L 500.2500, L100.0100 #### [facility] [address] [place], [address] Basophils/100 WBC (Bld) 0.4 % Normal 0-1 [facility] Comment on above: Performed By: #### L 500.2500, L100.0100 #### [facility] [address] [place], [address] Eosinophils/100 WBC (Bld) 1.5 % Normal 0-5 [facility] Comment on above: Performed By: #### L 500.2500, L100.0100 #### [facility] [address] [place], [address] Erythrocyte distribution width (RBC) [Ratio] 15.0 % High 11.6-14.6 [facility] Comment on above: Performed By: #### L 500.2500, L100.0100 #### [facility] [address] [place], [address] Hematocrit (Bld) [Volume fraction] 38.4 % Normal 37-47 [facility] Comment on above: Performed By: #### L 500.2500, L100.0100 #### [facility] [address] [place], [address] Hemoglobin (Bld) [Mass/Vol] 12.4 g/dL Normal 12.0-15.0 [facility] Comment on above: Performed By: #### L 500.2500, L100.0100 #### [facility] [address] [place], [address] IG% 0.400 Normal 0.0-0.9 [facility] Comment on above: Result Comment: IG% - Immature Granulocytes (promyelocytes, myelocytes and metamyelocytes) > 1% indicates that a LEFT SHIFT is Present. Performed By: #### L 500.2500, L100.0100 #### [facility] [address] [place], [address] Lymphocytes/100 WBC (Bld) 27.0 % Normal 19-41 [facility] Comment on above: Performed By: #### L 500.2500, L100.0100 #### [facility] [address] [place], [address] MCH (RBC) [Entitic mass] 29.0 pg Normal 27.0-32.0 [facility] Comment on above: Performed By: #### L 500.2500, L100.0100 #### [facility] [address] [place], [address] MCHC (RBC) [Mass/Vol] 32.3 g/dL Normal 32-36 [facility] Comment on above: Performed By: #### L 500.2500, L100.0100 #### [facility] [address] [place], [address] MCV (RBC) [Entitic vol] 89.7 fL Normal 81-99 [facility] Comment on above: Performed By: #### L 500.2500, L100.0100 #### [facility] [address] [place], [address] Monocytes/100 WBC (Bld) 7.0 % Normal 0-10 [facility] Comment on above: Performed By: #### L 500.2500, L100.0100 #### [facility] [address] [place], [address] Neutrophils/100 WBC (Bld) 63.7 % Normal 47-70 [facility] Comment on above: Performed By: #### L 500.2500, L100.0100 #### [facility] [address] [place], [address] Nucleated RBC (Bld) [#/Vol] 0 10*3/uL Normal 0-5 [facility] Comment on above: Performed By: #### L 500.2500, L100.0100 #### [facility] [address] [place], [address] Platelet mean volume (Bld) [Entitic vol] 12.7 fL High 6.2-12.0 [facility] Comment on above: Performed By: #### L 500.2500, L100.0100 #### [facility] [address] [place], [address] Platelets (Bld) [#/Vol] 246 10*3/uL Normal 150-450 [facility] Comment on above: Performed By: #### L 500.2500, L100.0100 #### [facility] [address] [place], [address] RBC (Bld) [#/Vol] 4.28 10*6/uL Normal 4.2-5.4 [facility] Comment on above: Performed By: #### L 500.2500, L100.0100 #### [facility] [address] [place], [address] RDW SD 48.6 fl High 35.1-43.9 [facility] Comment on above: Performed By: #### L 500.2500, L100.0100 #### [facility] [address] [place], [address] WBC (Bld) [#/Vol] 7.6 10*3/uL Normal 4.4-11.0 [facility] Comment on above: Performed By: #### L 500.2500, L100.0100 #### [facility] [address] [place], [address] Carbon dioxide, total [Moles /volume] in Central venous bloodOrdered By: Elmira Quijano on 07-07-2024 CO2 [Moles/Vol] 23.3 mmol/L 21.0-32.0 [facility] Chloride assayOrdered By: Pratima Quijano on 07-07-2024 Chloride [Moles/Vol] 105 mmol/L 98-108 [facility] Emergency Department Summary on 07-07-2024 Emergency Department Summary [facility] Medical Records Department [address] [place] [address] Emergency Department Summary 07/07/24 MR#: [id number] Acct: [id number] Name: AMY NAIDU Rep #: [id number] : 1975 49 From: Elmira MCGUIRE PCP: Care Physician,No Primary Status:DEP ER Location: ED HPI HPI - URI History of Present Illness Chief Complaint: Ear Problem Narrative Narrative: Patient presenting today due to pain, swelling, and redness to her left tragus that started last Monday. She went to urgent care on Monday and they started her on amoxicillin. She has had no relief and went back to urgent care today and they recommended she come here for evaluation. She reports swelling that extends down the left side of her neck. She denies fevers, chills, hearing loss, and injury to the area. She has a PMH of T2DM. ROS ROS ED Constitutional Constitutional ED: Denies chills or fever(s) ENT ENT ED: Reports ear pain left Cardiovascular Cardiovascular: Denies chest pain Respiratory/Chest Respiratory/Chest: Denies dyspnea Gastrointestinal Gastrointestinal: Denies abdominal pain, nausea or vomiting Musculoskeletal Musculoskeletal: Denies arthralgias or myalgias Integumentary Denies rash Neurologic Neurologic: Denies weakness PFSH PFSH Medical History no medical history Home Medications ???Medication ???Instructions ???Recorded ???Last Taken ???Type amoxicillin 875 mg-potassium 1 tab PO BID #14 tabs 07/07/24 Unk nown Rx clavulanate 125 mg tablet Allergy/AdvReac Type Severity Reaction Status Date / Time No Known Allergies Allergy Verified 07/07/24 11:57 Family History no significant family his Surgical History no surgical history Social History Smoking Status: Current some day smoker tobacco type: cigarettes EXAM Physical Exam Const Vital Signs: 07/07/24 11:54 07/07/24 13:58 Temperature 97 F L 96.1 F L Temperature Source Temporal Pulse Rate 69 65 Respiratory Rate 15 17 Blood Pressure 128/75 H 155/101 H Blood Pressure Mean 92 119 Pulse Ox 98 96 Oxygen Delivery Method Room Air Positive well nourished, well developed and no apparent distress General Appearance ED: well developed HEENT Reports normocephalic and head/scalp atraumatic HEENT Narrative: Bilateral TM and EAC clear, no pain to the bilateral mastoid processes. Pain, erythema, and swelling to the left tragus. Mild swelling to the left parotid gland. Mouth ED: Yes moist mucous membranes normal Throat: posterior oropharynx normal Eyes PERRL and EOMs intact bilaterally Neck full ROM and supple Neck Narrative: Left cervical anterior lymphadenopathy Chest Wall inspection of chest normal Resp normal respiratory effort and clear to auscultation bilaterally Cardio regular rate and regular rhythm Back/Spine normal ROM and normal to inspection Extremity normal to inspection and full ROM Neuro oriented x3, CN's II-XII intact bilaterally, moves all extremities, no focal motor deficits and no sensory deficits noted Sensorium / Orientation: awake and alert Psych mental status grossly normal and thought process normal Skin no rashes or lesions noted and no wounds Physical Exam Const Vital Signs: 07/07/24 11:54 07/07/24 13:58 Temperature 97 F L 96.1 F L Temperature Source Temporal Pulse Rate 69 65 Respiratory Rate 15 17 Blood Pressure 128/75 H 155/101 H Blood Pressure Mean 92 119 Pulse Ox 98 96 Oxygen Delivery Method Room Air MDM MDM MDM Narrative Medical decision making narrative: Patient presenting today due to concerns for slight swelling and erythema to the left tragus that has been ongoing since Monday she also developed slight swelling to the left parotid gland. Her EAC and TMs are clear bilaterally. No mastoid tenderness bilaterally. Exam is not consistent with malignant otitis externa. CBC obtained to assess for leukocytosis and is negative, BMP negative for kidney dysfunction or electrolyte derangement. CT scan soft tissue neck with IV contrast obtained to better assess the area and shows enlargement of the left parotid gland with reactive lymph nodes, findings are nonspecific but may represent parotitis. She also has mild thickening of the left auricular cartilage. She is currently taking amoxicillin, I will switch her to Augmentin. I did refer her to ENT and recommended she follow-up with either her PCP or ENT in the next 5 to 7 days. Return instructions were discussed with her. I recommended she apply warm compresses to the area and also she can try sucking on a sugar-free sour candy. She will be discharged home in stable condition. Lab Data Labs: Laborat (more content not included)... Normal [facility] Eosinophil percentageOrdered By: Elmira Quijano on 07-07-2024 Eosinophils/100 WBC (Bld) 1.5 % 0-5 [facility] Erythrocyte distribution wid th (RBC) [Ratio]Ordered By: Elmira Quijano on 07-07-2024 Erythrocyte distribution width (RBC) [Entitic vol] 48.6 fL High 35.1-43.9 [facility] Erythrocyte distribution wid th ratioOrdered By: Elmira Quijano on 07-07-2024 Erythrocyte distribution width (RBC) [Ratio] 15.0 % High 11.6-14.6 [facility] Estimation of creatinine jhony aranceOrdered By: Elmira Quijano on 07-07-2024 Estimated Creatinine Clearance Calc 113.47 ml/min 50-250 [facility] GFR/1.73 sq M.predicted faith g non-blacks MDRD (S/P/Bld) [Vol rate/Area]Ordered By: Elmira Quijano on 07-07-2024 Estimated GFR (MDRD) Non-Af Amer 95 >60 [facility] Comment on above: mL/min/1.73m2 CKD-EP I Creatinine Equation (2020) Hematocrit Auto (Bld) [Volum e fraction]Ordered By: Elmira Quijano on 07-07-2024 Hematocrit (Bld) [Volume fraction] 38.4 % 37-47 [facility] Hemoglobin measurementOrdere d By: Elmira Quijano on 07-07-2024 Hemoglobin (Bld) [Mass/Vol] 12.4 g/dL 12.0-15.0 [facility] Immature granulocytes/100 WB C Auto (Bld)Ordered By: Elmira Quijano on 07-07-2024 Immature granulocytes/100 WBC (Bld) 0.400 % 0.0-0.9 [facility] Comment on above: IG% - Immature Granu locytes (promyelocytes, myelocytes and metamyelocytes) > 1% indicates that a LEFT SHIFT is Present. Lymphocytes Auto (Unsp spec) [#/Vol]Ordered By: Elmira Quijano on 07-07-2024 Lymphocytes (Bld) [#/Vol] 2.04 10*3/uL 0.83-4.51 [facility] Lymphocytes/100 WBC Auto (Un sp spec)Ordered By: Elmira Quijano on 07-07-2024 Lymphocytes/100 WBC (Bld) 27.0 % 19-41 [facility] MCV (mean corpuscular volume ) determinationOrdered By: Elmira Quijano on 07-07-2024 MCV (RBC) [Entitic vol] 89.7 fL 81-99 [facility] Mean corpuscular hemoglobin (MCH) determinationOrdered By: Elmira Quijano on 07-07-2024 MCH (RBC) [Entitic mass] 29.0 pg 27.0-32.0 [facility] Mean corpuscular hemoglobin concentration (MCHC) determinationOrdered By: Elmira Quijano on 07-07-2024 MCHC (RBC) [Mass/Vol] 32.3 g/dL 32-36 [facility] Mean platelet volume determi nationOrdered By: Elmira Quijano on 07-07-2024 Platelet mean volume (Bld) [Entitic vol] 12.7 fL High 6.2-12.0 [facility] Monocyte percentageOrdered B y: Elmira Quijano on 07-07-2024 Monocytes/100 WBC (Bld) 7.0 % 0-10 [facility] Neutrophil percentageOrdered By: Elmira Quijano on 07-07-2024 Neutrophils/100 WBC (Bld) 63.7 % 47-70 [facility] Nucleated red blood cell per centageOrdered By: Elmira Quijano on 07-07-2024 Nucleated RBC/100 WBC (Bld) [Ratio] 0 % 0-5 [facility] Platelet countOrdered By: Pratima Quijano on 07-07-2024 Platelets (Bld) [#/Vol] 246 10*3/uL 150-450 [facility] Potassium (Unsp spec) [Mass/ Vol]Ordered By: Elmira Quijano on 07-07-2024 Potassium [Moles/Vol] 4.1 mmol/L 3.3-5.1 [facility] RBC Auto (Bld) [#/Vol]Ordere d By: Elmira Quijano on 07-07-2024 RBC (Bld) [#/Vol] 4.28 10*6/uL 4.2-5.4 [facility] Serum creatinine measurement (mass/volume)Ordered By: Elmira Quijano on 07-07-2024 Creatinine [Mass/Vol] 0.77 mg/dL 0.70-1.20 [facility] Serum glucose measurement (m ass/volume)Ordered By: Elmira Quijano on 07-07-2024 Glucose [Mass/Vol] 187 mg/dL High 70-99 [facility] Serum or plasma calcium lenny urement (mass/volume)Ordered By: Elmira Quijano on 07-07-2024 Calcium [Mass/Vol] 8.8 mg/dL 7.6-11.0 [facility] Serum or plasma urea nitroge n measurement (mass/volume)Ordered By: Elmira Quijano on 07-07-2024 Urea nitrogen [Mass/Vol] 12 mg/dL 4-19 [facility] Sodium levelOrdered By: Juan Quijano on 07-07-2024 Sodium [Moles/Vol] 138 mmol/L 133-145 [facility] Soft Tissue Neck WITH Contra ston 07-07-2024 Soft Tissue Neck WITH Contrast [facility] Imaging Services [address] [place], [place] [id number] Soft Tissue Neck WITH Contrast MR#: [id number] Acct: [id number] Name: KENNY NAIDUZARA Robertson Rep #: [id number] : 1975 F 49 From: Anna Garland nd, MD PCP: Care Physician,No Primary Status: REG ER Study: Soft Tissue Neck WITH Contrast Date of Exam: 0 07/07/24 Exam# [id number] Ordering Dr: Elmira Quijano PROCEDURE: SOFT TISSUE NECK WITH CONTRAST 07/07/2024 REASON FOR EXAM: 49-year-old female, L TRAGUS AND PAROTID SWELLING TECHNIQUE: CT of the soft tissues of the neck from the orbits to the upper mediastinum with intravenous contrast. CONTRAST: Isovue 370 VOLUME: 100 mL One or more dose reduction techniques were used (e.g., Automated exposure control, adjustment of the mA and/or kV according to patient size, use of iterative reconstruction technique). RADIATION DOSE SUMMARY: CTDlvol: 20 mGy DLP: 600 mGycm COMPARISON: None. FINDINGS: Airway: Midline and patent. Salivary glands: Asymmetric enlargement of the left parotid gland with scattered intraparotid lymph nodes. No discrete mass visualized. The bilateral submandibular glands are unremarkable. Lymph nodes: Prominent left cervical chain nodes, for example a left level IIb lymph node (series 2, image 56) and left level Vc node (series 2, image 54). Thyroid: Unremarkable. Vasculature: Carotid arteries and internal jugular veins are unremarkable. Orbits: Unremarkable at visualized levels. Paranasal sinuses and mastoids: The mastoids and visualized paranasal sinuses are well-aerated. Lung apices: Clear. Upper mediastinum: Visualized mediastinum is unremarkable. Bones: Multilevel degenerative changes of the spine. Other: Mild asymmetric thickening of the left auricular cartilage. No obvious inflammation of the external auditory canal. CT/Soft Tissue Neck WITH Contrast IMPRESSION: 1. Asymmetric enlargement of the left parotid gland with scattered intraperitoneal nodes, likely reactive. Findings are nonspecific and may represent parotitis due to infection or inflammatory process. If patient's symptoms do not subside after treatment, recommend MRI in four weeks to evaluate for additional causes. 2. Mild asymmetric thickening of the left auricular cartilage, which is indeterminate in etiology but may represent perichondritis. No obvious extension into the external auditory canal. Clinical and physical exam correlation recommended. Reading Location: [id number] CC: MAYNOR Zhu; No Primary Care Physician Composition Professor: Signed Normal [facility] White blood cell (WBC) count Ordered By: Elmira Quijano on 07-07-2024 WBC (Bld) [#/Vol] 7.6 10*3/uL 4.4-11.0 [facility] Surgery General 06-06-2023 [facility] [address] [place] [address] [address] [place] [address] Surgery General Signed Patient: Amy Naidu MR#: [id number] : 1975 Acct: [id number] Age/Sex: 48 / F Loc: SURG.AV Date of Service: 06/06/[address]: Roman Breaux D.O. cc: Gus Block Intake Vital Signs ([facility]) 06/06/23 13:53 Height 5 ft 5 in Weight 217 lb 9.54 oz BMI 36.2 BP 145/92 Blood Pressure Location Lt brachial Position Sitting Pulse 90 Pulse Oximetry (%) 92 Oxygen Delivery Method Room Air Intake Visit Reasons: Scope 2 week Shopping Inspector Required: No Is patient in acute pain: No Allergies hydromorphone [From Dilaudid] Adverse Reaction (Mild, Verified 06/06/23 13:54) Itching Smoking risk assessment performed?: Yes Medications - Last Reconciled 06/06/23 by Rocco Staples CMA amlodipine 5 mg ORAL DAILY benazepril-hydrochlo rothiazide 20-25 mg 1 TABLET ORAL DAILY cholecalciferol (vitamin D3) 2,000 units ORAL DAILY clonidine HCl 0.1 mg ORAL BID diclofenac sodium ER 100 mg ORAL DAILY dulaglutide (Trulicity) 0.75 mg subcut MO empagliflozin (Jardiance) 25 mg ORAL DAILY ergocalciferol (vitamin D2) 50,000 units ORAL WEEKLY lovastatin 20 mg ORAL DAILY metformin 1,000 mg ORAL BID metoprolol tartrate 25 mg ORAL BID omeprazole 20 mg ORAL DAILY History History 2 Elective abortions 0 Para 2 Spontaneous abortions 0 Hx # Term Pregnancies 2 Ectopic pregnancies 0 Hx # Pregnancies 0 Multiple births 0 Specific Travel Risk - COVID-19 Travel from high risk country; contact w/ high risk person(s): No COVID-19 Symptoms: No PHQ-2/9 . Over the last 2 weeks, how often have you been bothered by any of the following problems? 1. Little interest or pleasure in doing things: not at all 2. Feeling down, depressed, or hopeless: not at all PHQ-2: Total score: 0 Depression Screening Performed-Adult (age 14 and older): Yes Depression Screening Results (Adult): negative Suicide risk assessment performed: Yes 9. Thoughts that you would be better off or of hurting yourself in some way: not at all 0-4 None-Minimal, 5-9 Mild, 10-14 Moderate, 15-19 Moderately Severe, 20-27 Severe Source: Developed by Drs. Goran Moreno, Kaylee Tolentino, John Ambrosio and colleagues, with an educational michelle from [employer]. .. PFSH PFSH Medical History Diabetes History of anxiety History of depression History of ovarian cyst Hypertension Last menstrual period (LMP) < 10 days ago Mar 2023 Surgical History H/O lithotripsy History of Hx of cardiac cath no stents Family History Father Diabetes Social History (Updated 06/06/23 @ 13:55 by Rocco Staples CMA) Advance Directives: No Advance Directives Information Provided: Yes Advance Directives on File: No Smoking Status: Current every day smoker What tobacco products do you use: cigarettes Smoking packs per day: 0.5 Smoking cigarettes per day: 10.0 Nicotine containing products detail: Quit smoking 3 days ago How often do you have a drink containing alcohol: never Non prescribed substance use: former substance user, 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 in last 30 days?: No Are you able to complete the screen?: Yes What is your living situation today?: I have a steady place to live Think about the place you live. Do you have problems with any of the following? CHOOSE ALL THAT APPLY: None of the above Within the past 12 months, you worried that your food would run out before you got money to buy more.: Never true Within the past 12 months, the food you bought just didn't last and you didn't have money to get more.: Never true In the past 12 months, has lack of reliable transportation kept you from medical appointments, meetings, work, or from getting things needed for daily living?: No In the past 12 months has the electric, gas, oil, or water company threatened to shut off services in your home?: No How often does anyone, including family and friends, physically hurt you?: Never How often does anyone, including family and friends, insult or talk down to you?: Never How often does anyone, including family and friends, threaten you with harm?: Never How often does anyone, including family and friends, scream or curse at you?: Never Safety Total: 4 caffeine: Yes Caffeine use details: pop 1-2 cans daily Highest level of school completed/degree received: high school graduate Father Diabetes (Updated 06/06/23 @ 14:39 by Roman Breaux DO) Diabetes History of anxie (more content not included)... Normal [facility] Amphetamine Screen Ql (U)Ord ered By: Cata Boss on 05-15-2023 Amphetamines Ql (U) Not detected None Detect So [facility] Comment on above: Cutoff: 500ng/mL CT biopsyOrdered By: Cata Boss on 05-15-2023 Benzodiazepines Ql (U) Not detected None Detect [facility] Comment on above: Cutoff: 200ng/mL Cocaine Ql (U) Not detected None Detect [facility] Comment on above: Cutoff: 150ng/mL CT biopsy Not detected None Detect [facility] Comment on above: Cutoff: 200ng/mL Glucometer POCon 05-15-2023 Glucose [Mass/Vol] 145 mg/dL High 70-110 Jorge quinonez [facility] Comment on above: Order Comment: Speci men Type: Unknown Relevant Clinical Information: POSITIVE COLOGUARD, POOR PREP Ordering Facility: [facility] Address: , , Performed By: #### G LUCOMETER #### [facility] Glucose Glucometer (BldC) [M ass/Vol]Ordered By: Roman Breaux on 05-15-2023 Glucose [Mass/Vol] 145 mg/dL 70-110 Jorge quinonez [facility] HCG ( test) IA.rapi d Ql (S)Ordered By: Cata Boss on 05-15-2023 HCG ( test) Ql Negative Negative S [facility] HCG Qualitativeon 05-15-2023 HCG Qualitative Negative Normal Negative [facility] Comment on above: Order Comment: Speci men Type: Unknown Relevant Clinical Information: POSITIVE COLOGUARD, POOR PREP Ordering Facility: [facility] Lab-CLIA#[id number] Address: [address] [place] [address] Performed By: #### H CGQ #### [facility] Lab-CLIA#[id number] CLIA [id number] [address] [place] [address] Dimitri Herron DO,ARDEN Hematoxylin and Eosin Staino n 05-15-2023 Hematoxylin and Eosin Stain RUN DATE: 05/16/23 [facility] Med *LIVE* - LAB PAGE 1 RUN TIME: 1415 Specimen Inquiry PATIENT: Amy Naidu ACCT: [id number] LOC: [email or web address].SV U: [id number] AGE/SX: 48/F ROOM: RE05/15/[address]: Roman Breaux D.O. : 1975 BED: DIS: STATUS: [facility] TLOC: SPEC : [id number] RECD: 05/15/23 STATUS: SOUT REQ NUM: [id number] MUNA: 05/15/23 DR: Roman Breaux D.O. ENTERED: 05/15/23 SP TYPE: Surgical OTHR DR: ORDERED: HE Stain/2, Gross Micro L4 CODES: ColonRectumP Order Queries: Clinical and Patient History Positive cologuard, poor prep / Colonoscopy Specimen 1: Rectal Polyp Specimen 2: Specimen 3: Specimen 4: Specimen 5: Specimen 6: Specimen 7: Specimen 8: Specimen 9: Specimen 10: Specimen 11: Specimen 12: Additional Specimen(s): TISSUES: 1. Colon, Rectum Polyp Clinical Information Positive cologuard, poor prep / Colonoscopy Gross Description Specimen is received in a single formalin filled container, labeled with the patient name and demographics, and is designated rectal polyp and consists of a single 0.4 x 0.2 x 0.2 cm yellow-stokes tissue fragment which is entirely submitted 1A. Microscopic Diagnosis 1. Large intestine, rectum, biopsy: -Hyperplastic polyp. Signed (signature on file) Grayson Yang MD 05/16/23 1414 END OF REPORT Normal [facility] Comment on above: Order Comment: Speci men Type: Unknown Does the patient have one or more UTI symptoms? Y Clean Catch Reason for Study: Does the patient have one or more UTI symptoms? Y Relevant Clinical Information: Left flank pain, dizzy, vomiting Ordering Facility: [facility] Lab-CLIA#[id number] Address: [address] [place] [address] Performed By: #### U [place], UAMRFLX #### [facility] Lab-CLIA#[id number] [place] [id number] [address] [place] [address] Dimitri Herron DO, FCAP History Physical Updateon [place] [address] History Physical Update Signed Patient: Amy Naidu MR#: [id number] 93 : 1975 Acct: [id number] Age/Sex: 48 / F ADM Date: 05/15/23820 Loc: [facility].SV Attending Dr: Roman Breaux D.O. cc: Roman Breaux D.O. Review Pre-Op Review The H P was reviewed, the patient was examined, and no change has occurred in the patient???s condition since the H P was completed.: Yes Documented By: Roman Breaux D.O. 05/15/23820 Signed By: 05/15/23821 Normal [facility] No Panel InformationOrdered By: Cata Boss on 05-15-2023 Urine Drug Screen Comment. See comment [facility] Comment on above: This method provides only a preliminary analytical test result. A more specific alternative method should be used to confirm a positive result. None Detected indicates that either the urine sample does not contain drugs in that class or that the drug concentration is below the cutoff level and therefore not detected. Unconfirmed screening results should not be used for non-medical purposes. Post Anesthesia Noteon 05-15 Post Anesthesia Note [address] [address] Post Anesthesia Note Signed Patient: Amy Naidu MR#: [id number] 93 : 1975 Acct: [id number] Age/Sex: 48 / F ADM Date: 05/15/23 1015 [facility]: Roman Breaux D.O. cc: Cata Boss M.D. Anesthesia Post Op Evaluation Procedure Procedure: Procedures Operation Date: 05/15/23 08:30 Actual Procedure Side Surgeon p COLONOSCOPY Left Roman Breaux DO Post Anesthesia Criteria 1.Patient is awake, alert, oriented to person and place or has returned to his/her original LOC: Patient met criteria 2.The patient's blood pressure is within 20% of the preoperative values with the range: 100/50- 190/90. (EXCEPTION: Pediatric patients 20-40%): Patient met criteria 3. The patient's pulse is within 20% of the preoperative values and rhythm is unchanged from the preoperative rhythm.: Patient met criteria 4. The above hemodynamic criteria have remained stable and within the accepted parameters for at least 30 min for inpatients and 1 hr for outpatients after the last dose of sedation.: Patient met criteria 5.The respiratory rate is 1-24 inclusive. No airway support is required and no signs of respiratory distress are present.: Patient met criteria 6. Oxygen saturation is greater than or equal to 94% with no more than 3L/min nasal cannula or 30% face mask OR patient is back to his/her baseline of less than 94%.: Patient met criteria 7a. The above respiratory criteria have remained stable and in the accepted parameter for at least 30 min for inpatients and 1 hour for outpatients after the last dose of sedation.: Patient met criteria 7b. The above respiratory criteria have remained stable and in the accepted parameter for at least 2 hours for patients who have received flumazenil or naloxone.: Patient met criteria 8. Temperature is 98.6 to 101.3 degrees fahrenheit inclusive: Patient met criteria 9. The patient is not experiencing more than minimal nausea and vomiting.: Patient met criteria 10. The patient has optimal pain control and is experiencing minimal pain.: Patient met criteria 11. The operative area site is appropriate without signs of excessive or abnormal bleeding.: Patient met criteria Documented By: Cata Boss M.D. 05/15/23 1015 Signed By: 05/15/23 1015 [facility] Pre-Anesthesia Noteon 2023 [place] [address] Pre-Anesthesia Note Signed Patient: Amy Naidu MR#: [id number] 93 : 1975 Acct: [id number] Age/Sex: 48 / F ADM Date: 05/15/23747 [facility]: Roman Breaux D.O. cc: Cata Boss M.D. Op Procedure Operative Procedure Type: SDS Prior Anesthesia Anesthesia History Previous problems with anesthesia: none Tobacco: current, some-day smoker Preoperative Checklist Pre Op Checklist NPO since: >8hrs Cognition level of patient: appropriate to age level OK for Patient to Receive Narcotics During Visit: Yes Medication Precautions: No PFSH PFSH Medical History (Updated 05/10/23 @ 09:06 by Mehnaz Martinez RN) Diabetes History of anxiety History of depression History of ovarian cyst Hypertension Last menstrual period (LMP) < 10 days ago Mar 2023 Surgical History H/O lithotripsy History of Hx of cardiac cath no stents Family History Father Diabetes Social History Advance Directives: No Advance Directives Information Provided: Yes Advance Directives on File: No Would like to be referred to Claim Approver for info?: No Smoking Status: Current every day smoker What tobacco products do you use: cigarettes Smoking packs per day: 0.5 Smoking cigarettes per day: 10.0 Nicotine containing products detail: Quit smoking 3 days ago How often do you have a drink containing alcohol: never Non prescribed substance use: former substance user, 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 in last 30 days?: No caffeine: Yes Caffeine use details: pop 1-2 cans daily Highest level of school completed/degree received: high school graduate Spiritual Healthcare Practices: denies Voodoo Healthcare Practices: denies Cultural Healthcare Practices: denies Father Diabetes (Updated 05/10/23 @ 09:06 by Mehnaz Martinez RN) Diabetes History of anxiety History of depression History of ovarian cyst Hypertension Last menstrual period (LMP) < 10 days ago Pre Anesthesia Exam Airway Exam Dentition: Lower Partial and Upper Partial Mallampati: II Mouth opening: age appropriate Hyoid to Mentum: age appropriate C-Spine: Normal Neck Anatomy: Normal Jaw Protrusion: Normal: lower incisors can protrude past upper incisors Exiting Airway: None Respiratory Common normals: normal respiratory effort Meds Home Medications and Allergies Home Medications Medication Instructions Recorded Confirmed Type metoprolol tartrate 25 mg tablet 25 mg ORAL BID blood pressure 06/29/20 05/10/23 History clonidine HCl 0.1 mg tablet 0.1 mg ORAL BID blood pressure 10/22/20 05/10/23 History diclofenac sodium 100 mg 100 mg ORAL DAILY arthritis pain 10/22/20 05/10/23 History tablet,extended release 24 hr omeprazole 20 mg capsule,delayed 20 mg ORAL DAILY gerd 10/22/20 05/10/23 History release amlodipine 5 mg tablet 5 mg ORAL DAILY blood pressure 04/14/21 05/10/23 History lovastatin 20 mg tablet 20 mg ORAL DAILY cholesterol 04/14/21 05/10/23 History benazepril 20 1 tablet ORAL DAILY blood pressure 06/02/22 05/10/23 History mg-hydrochlorothiazi de 25 mg tablet cholecalciferol (vitamin D3) 50 2,000 unit ORAL DAILY supplement 06/02/22 05/10/23 History mcg (2,000 unit) tablet dulaglutide 0.75 mg/0.5 mL 0.75 mg subcut MO diabetes 06/02/22 05/10/23 History subcutaneous pen injector (Trulicity) empagliflozin 25 mg tablet 25 mg ORAL DAILY diabetes 06/02/22 05/10/23 History (Jardiance) ergocalciferol (vitamin D2) 1,250 50,000 unit ORAL WEEKLY supplement 06/02/22 05/10/23 History mcg (50,000 unit) capsule metformin 500 mg tablet 1,000 mg ORAL BID dmt2 06/02/22 05/10/23 History Allergies Allergy/AdvReac Type Severity Reaction Status Date / Time hydromorphone [From Dilaudid] AdvReac Mild Itching Verified 05/10/23 09:06 Obstetrical History History : 2 Para: 2 Pre Anesthesia Results Vital Signs Height: 1.65 m Weight: 89.36 kg BMI: 32.8 Labs Labs: Laboratory Results - last 24 hr 05/15/23 07:41 Glucometer 145 H Diagnostic results Chest x-ray: report reviewed EKG Rate Rhythm: NSR Anesthesia Plan Plan Type of Anesthesia Planned:: Monitored Anesthesia Care Monitors: Standard Anesthesia Risk ASA Physical Status: ASA 3 Consent Consent: Risk/Benefit of anesthesia plan blood product discussed Patient/Family understand and agree upon risks vs benefits of anesthesia: Yes Documented By: Cata Boss M.D. 02 (more content not included)... Normal [facility] Screening urine 6-acetylmorp erinn measurementOrdered By: Cata Boss on 05-15-2023 6-Monoacetylmorphine (6-NATASHA) Screen Ql (U) Not detected None Detect [facility] Comment on above: Cutoff: 10ng/mL Screening urine cannabinoids detection using 50 ng/mL cutoffOrdered By: Cata Boss on 05-15-2023 Tetrahydrocannabinol Screen method >50 ng/mL Ql (U) Not detected None Detect [facility] Comment on above: Cutoff: 50ng/mL Screening urine opiates test Ordered By: Cata Boss on 05-15-2023 Opiates Screen Ql (U) Not detected None Detect [facility] Comment on above: Cutoff: 300ng/mL Urine Drug Screen of Abuseon 05-15-2023 Amphetamine Screen Ur Not detected Normal None Detect [facility] Comment on above: Order Comment: Speci men Type: Unknown Relevant Clinical Information: POSITIVE COLOGUARD, POOR PREP Ordering Facility: [facility] Lab-CLIA#[id number] Address: [address] [place] [address] Result Comment: Cuto ff: 500ng/mL Performed By: #### U DSA #### [facility] Lab-CLIA#[id number] CLIA [id number] [address] [place] [address] Dimitri Herron, DO,FCAP Barbiturate Screen Ur Not detected Normal None Detect [facility] Comment on above: Order Comment: Speci men Type: Unknown Relevant Clinical Information: POSITIVE COLOGUARD, POOR PREP Ordering Facility: [facility] Lab-CLIA#[id number] Address: [address] [place] [address] Result Comment: Cuto ff: 200ng/mL Performed By: #### U DSA #### [facility] Lab-CLIA#[id number] CLIA [id number] [address] [place] [address] Dimitri Herron, DO,FCAP Benzodiazepines Screen Ur Not detected Normal None Detect [facility] Comment on above: Order Comment: Speci men Type: Unknown Relevant Clinical Information: POSITIVE COLOGUARD, POOR PREP Ordering Facility: [facility] Lab-CLIA#[id number] Address: [address] [place] [address] Result Comment: Cuto ff: 200ng/mL Performed By: #### U DSA #### [facility] Lab-CLIA#[id number] CLIA [id number] [address] [place] [address] Dimitri Herron, DO,FCAP Buprenorphine Screen Ur Not detected Normal None Detec t [facility] Comment on above: Order Comment: Speci men Type: Unknown Relevant Clinical Information: POSITIVE COLOGUARD, POOR PREP Ordering Facility: [facility] Lab-CLIA#[id number] Address: [address] [place] [address] Result Comment: Cuto ff: 5ng/mL Performed By: #### U DSA #### [facility] Lab-CLIA#[id number] CLIA [id number] [address] [place] [address] Vincent Randaisi, DO,FCAP Cannabinoid Screen Urine Not detected Normal None Dete ct [facility] Comment on above: Order Comment: Speci men Type: Unknown Relevant Clinical Information: POSITIVE COLOGUARD, POOR PREP Ordering Facility: [facility] Lab-CLIA#[id number] Address: [address] [place] [address] Result Comment: Cuto ff: 50ng/mL Performed By: #### U DSA #### [facility] Lab-CLIA#[id number] CLIA [id number] [address] [place] [address] Vincent Randaisi, DO,FCAP Cocaine Screen Ur Not detected Normal None Detect [facility] Comment on above: Order Comment: Speci men Type: Unknown Relevant Clinical Information: POSITIVE COLOGUARD, POOR PREP Ordering Facility: [facility] Lab-CLIA#[id number] Address: [address] [place] [address] Result Comment: Cuto ff: 150ng/mL Performed By: #### U DSA #### [facility] Lab-CLIA#[id number] CLIA [id number] [address] [place] [address] Vincent Randaisi, DO,FCAP Fentanyl Screen Ur Not detected Normal None Detect [facility] Comment on above: Order Comment: Speci men Type: Unknown Relevant Clinical Information: POSITIVE COLOGUARD, POOR PREP Ordering Facility: [facility] Lab-CLIA#[id number] Address: [address] [place] [address] Result Comment: Cuto ff: 1.0 ng/mL Quinine and Quinidine may interfere with Fentanyl screening. Performed By: #### U DSA #### [facility] Lab-CLIA#[id number] CLIA [id number] [address] [place] [address] Vincent Randaisi, DO,FCAP Heroin (6-AM) Screen Ur Not detected Normal None Detec t [facility] Comment on above: Order Comment: Speci men Type: Unknown Relevant Clinical Information: POSITIVE COLOGUARD, POOR PREP Ordering Facility: [facility] Lab-CLIA#[id number] Address: [address] [place] [address] Result Comment: Cuto ff: 10ng/mL Performed By: #### U DSA #### [facility] Lab-CLIA#[id number] CLIA [id number] [address] [place] [address] Vincent Randaisi, DO,FCAP Methadone Screen Ur Not detected Normal None Detect So [facility] Comment on above: Order Comment: Speci men Type: Unknown Relevant Clinical Information: POSITIVE COLOGUARD, POOR PREP Ordering Facility: [facility] Lab-CLIA#[id number] Address: [address] [place] [address] Result Comment: Cuto ff: 150ng/mL Performed By: #### U DSA #### [facility] Lab-CLIA#[id number] CLIA [id number] [address] [place] [address] Vincent Randaisi, DO,FCAP Opiate Screen Ur Not detected Normal None Detect [facility] Comment on above: Order Comment: Speci men Type: Unknown Relevant Clinical Information: POSITIVE COLOGUARD, POOR PREP Ordering Facility: [facility] Lab-CLIA#[id number] Address: [address] [place] [address] Result Comment: Cuto ff: 300ng/mL Performed By: #### U DSA #### [facility] Lab-CLIA#[id number] CLIA [id number] [address] [place] [address] Vincent Randaisi, DO,FCAP Oxycodone Screen Ur Not detected Normal None Detect So [facility] Comment on above: Order Comment: Speci men Type: Unknown Relevant Clinical Information: POSITIVE COLOGUARD, POOR PREP Ordering Facility: [facility] Lab-CLIA#[id number] Address: [address] [place] [address] Result Comment: Cuto ff: 100ng/mL Performed By: #### U DSA #### [facility] Lab-CLIA#[id number] CLIA [id number] [address] [place] [address] Dimitri Herron DO,FCAP Urine Drug Message Normal [facility] Comment on above: Order Comment: Speci men Type: Unknown Relevant Clinical Information: POSITIVE COLOGUARD, POOR PREP Ordering Facility: [facility] Lab-CLIA#[id number] Address: [address] [place] [address] Result Comment: This method provides only a preliminary analytical test result. A more specific alternative method should be used to confirm a positive result. None Detected indicates that either the urine sample does not contain drugs in that class or that the drug concentration is below the cutoff level and therefore not detected. Unconfirmed screening results should not be used for non-medical purposes. Performed By: #### U DSA #### [facility] Lab-CLIA#[id number] CLIA [id number] [address] [place] [address] Dimitri Herron DO,FCAP Urine buprenorphine screenOr dered By: Cata Boss on 05-15-2023 Buprenorphine Screen Ql (U) Not detected None Detect [facility] Comment on above: Cutoff: 5ng/mL Urine fentanyl detection by screening methodOrdered By: Cata Boss on 05-15-2023 fentaNYL Screen Ql (U) Not detected None Detect [facility] Comment on above: Cutoff: 1.0 ng/mLQui nine and Quinidine may interfere with Fentanyl screening. Urine methadone screenOrdere d By: Cata Boss on 05-15-2023 Methadone Screen Ql (U) Not detected None Detec t [facility] Comment on above: Cutoff: 150ng/mL oxyCODONE Screen Ql (U)Order ed By: Cata Boss on 05-15-2023 oxyCODONE Ql (U) Not detected None Detect [facility] Comment on above: Cutoff: 100ng/mL General Surg History Physica todd 04-17-2023 General Surg History Physical [facility] [address] [place] [address] [place] [id number] General Surg History Physical Signed Patient: Amy Naidu MR#: [id number] 93 : 1975 Acct: [id number] Age/Sex: 47 / F ADM Date: 04/17/23 0908 Loc: [facility]. Attending Dr: Roman Breaux D.O. cc: Roman Breaux D.O. History of Present Illness History of Present Illness Date of service: 04/17/23 Chief complaint: POSITIVE COLOGUARD Narrative: Amy Naidu is a 47 year old female here for colonoscopy for positive Cologuard Review of Systems Const: Constitutional: Denies fever(s), chills, fatigue or headache(s) Eyes: Eyes: Denies eye pain, blurry vision or diplopia ENT: ENT: Reports Normal hearing present; Denies dizziness or headache(s) Cardio: Cardiology: Denies chest pain, ankle/foot swelling, lightheadedness, palpitations or dyspnea Resp: Respiratory: Denies cough or dyspnea Gastro: GI: Denies abdominal pain, nausea, vomiting, diarrhea or constipation Genitou: Genitourinary female: Denies urinary frequency, urinary incontinence or urinary urgency Musculo: Symptoms musculoskeletal: Denies abnormal gait, back pain or myalgias Skin/Breast: Symptoms integumentary/breast s: Denies rash, erythema, abscess or wounds Neurologic: Neurologic: Reports Normal hearing present; Denies headache(s), dizziness or abnormal gait Psychiatric: Symptoms psychiatric: Denies anxiety, depression or change in appetite Endocrine: Symptoms endocrine: Denies fatigue, flushing or palpitations [place]/Lymph: Symptoms hematologic/lymphati c: Denies easy bleeding, easy bruising or petechiae Allergic/Imm: Symptoms allergic/immunologic : Denies GI upset with certain foods, urticaria or recurrent infections PFSH PFS Medical History Diabetes History of anxiety History of depression History of ovarian cyst Hypertension Last menstrual period (LMP) < 10 days ago 03/2023 Surgical History H/O lithotripsy History of Hx of cardiac cath no stents Family History Father Diabetes Social History Advance Directives: No Advance Directives Information Provided: Yes Advance Directives on File: No Would like to be referred to Claim Approver for info?: No Smoking Status: Current every day smoker What tobacco products do you use: cigarettes Smoking packs per day: 0.5 Smoking cigarettes per day: 10.0 Nicotine containing products detail: Quit smoking 3 days ago How often do you have a drink containing alcohol: never 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 in last 30 days?: No caffeine: Yes Caffeine use details: pop 1-2 cans daily Highest level of school completed/degree received: high school graduate Spiritual Healthcare Practices: none Voodoo Healthcare Practices: none Cultural Healthcare Practices: none Father Diabetes Diabetes History of anxiety History of depression History of ovarian cyst Hypertension Last menstrual period (LMP) < 10 days ago Meds Home Medications and Allergies Home Medications Medication Instructions Recorded Confirmed Type metoprolol tartrate 25 mg tablet 25 mg ORAL BID blood pressure 06/29/20 04/17/23 History clonidine HCl 0.1 mg tablet 0.1 mg ORAL BID blood pressure 10/22/20 04/17/23 History diclofenac sodium 100 mg 100 mg ORAL DAILY arthritis pain 10/22/20 04/10/23 History tablet,extended release 24 hr omeprazole 20 mg capsule,delayed 20 mg ORAL DAILY gerd 10/22/20 04/10/23 History release amlodipine 5 mg tablet 5 mg ORAL DAILY blood pressure 04/14/21 04/17/23 History lovastatin 20 mg tablet 20 mg ORAL DAILY cholesterol 04/14/21 04/10/23 History benazepril 20 1 tablet ORAL DAILY blood pressure 06/02/22 04/17/23 History mg-hydrochlorothiazi de 25 mg tablet cholecalciferol (vitamin D3) 50 2,000 unit ORAL DAILY supplement 06/02/22 04/10/23 History mcg (2,000 unit) tablet dulaglutide 0.75 mg/0.5 mL 0.75 mg subcut MO diabetes 06/02/22 04/17/23 History subcutaneous pen injector (Trulicity) empagliflozin 25 mg tablet 25 mg ORAL DAILY diabetes 06/02/22 04/17/23 History (Jardiance) ergocalciferol (vitamin D2) 1,250 50,000 unit ORAL MO supplement 06/02/22 04/10/23 History mcg (50,000 unit) capsule metformin 500 mg tablet 1,000 mg ORAL BID dmt2 06/02/22 04/17/23 History cyclobenzaprine 5 mg tablet 5 mg ORAL BID PRN muscle spasm #10 01/03/23 04/10/23 Rx tabs Allergies Al (more content not included)... Normal [facility] Glucometer POCon 04-17-2023 Glucose [Mass/Vol] 144 mg/dL [facility] 70-[facility] Comment on above: Order Comment: Speci men Type: Unknown Relevant Clinical Information: POSITIVE COLOGUARD Ordering Facility: [facility] Address: , , Performed By: #### G LUCOMETER #### [facility] Glucose Glucometer (dC) [M ass/Vol]Ordered By: Roman Breaux on 04-17-2023 Glucose [Mass/Vol] 144 mg/dL 70-110 [facility] HCG ( test) IA.rapi d Ql (S)Ordered By: Tree Reardon on 04-17-2023 HCG ( test) Ql Negative [facility] Qualitativeon 04-17-2023 HCG Qualitative Negative Normal Negative [facility] Comment on above: Order Comment: Speci men Type: Unknown Does the patient have one or more UTI symptoms? Y Clean Catch Reason for Study: Does the patient have one or more UTI symptoms? Y Relevant Clinical Information: Left flank pain, dizzy, vomiting Ordering Facility: [facility] Lab-CLIA#[id number] Address: [address] [place] [address] Performed By: #### U [place], UAMRFLX #### [facility] Lab-CLIA#[id number] CLIA [id number] [address] [place] [address] Dimitri Herron DO,FCAP Post Anesthesia Noteon 04-17 Post Anesthesia Note [facility] [address] [place] [id number] Post Anesthesia Note Signed Patient: Amy Naidu MR#: [id number] 93 : 1975 Acct: [id number] Age/Sex: 47 / F ADM Date: 04/17/23 1546 [facility]: Roman Breaux D.O. cc: Tree Reardon D.O. Anesthesia Post Op Evaluation Procedure Procedure: Procedures Operation Date: 04/17/23 09:30 Actual Procedure Side Surgeon p COLONOSCOPY Left Roman Breaux DO Post Anesthesia Criteria 1.Patient is awake, alert, oriented to person and place or has returned to his/her original LOC: Patient met criteria 2.The patient's blood pressure is within 20% of the preoperative values with the range: 100/50- 190/90. (EXCEPTION: Pediatric patients 20-40%): Patient met criteria 3. The patient's pulse is within 20% of the preoperative values and rhythm is unchanged from the preoperative rhythm.: Patient met criteria 4. The above hemodynamic criteria have remained stable and within the accepted parameters for at least 30 min for inpatients and 1 hr for outpatients after the last dose of sedation.: Patient met criteria 5.The respiratory rate is 1-24 inclusive. No airway support is required and no signs of respiratory distress are present.: Patient met criteria 6. Oxygen saturation is greater than or equal to 94% with no more than 3L/min nasal cannula or 30% face mask OR patient is back to his/her baseline of less than 94%.: Patient met criteria 7a. The above respiratory criteria have remained stable and in the accepted parameter for at least 30 min for inpatients and 1 hour for outpatients after the last dose of sedation.: Patient met criteria 7b. The above respiratory criteria have remained stable and in the accepted parameter for at least 2 hours for patients who have received flumazenil or naloxone.: Patient met criteria 8. Temperature is 98.6 to 101.3 degrees fahrenheit inclusive: Patient met criteria 9. The patient is not experiencing more than minimal nausea and vomiting.: Patient met criteria 10. The patient has optimal pain control and is experiencing minimal pain.: Patient met criteria 11. The operative area site is appropriate without signs of excessive or abnormal bleeding.: Patient met criteria 12. If holden cath is present and the patient has normal renal function, the urine output is greater than or equal to 0.5ml/kg/hr: Patient met criteria 14. Laboratory values, EKG, and chest x-rays have been reviewed and abnormalities addressed.: Patient met criteria Documented By: Tree Reardon D.O. 04/17/23 154 Signed By: 04/17/23 154 [facility] Pre-Anesthesia Noteon 2023 Pre-Anesthesia Note [address] [address] Pre-Anesthesia Note Signed Patient: Amy Naidu MR#: [id number] 93 : 1975 Acct: [id number] Age/Sex: 47 / F ADM Date: 04/17/23837 Loc: [email or web address] Attending Dr: Roman Breaux D.O. cc: Tree Reardon D.O. Prior Anesthesia Anesthesia History Previous problems with anesthesia: none Family history of problems with anesthesia: none Preoperative Checklist Pre Op Checklist OK for Patient to Receive Narcotics During Visit: Yes Medication Precautions: No PFSH PFSH Medical History (Updated 04/10/23 @ 16:22 by Sully Tavarez RN) Diabetes History of anxiety History of depression History of ovarian cyst Hypertension Last menstrual period (LMP) < 10 days ago 03/2023 Surgical History (Updated 04/10/23 @ 16:23 by Sully Tavarez RN) H/O lithotripsy History of Hx of cardiac cath no stents Family History Father Diabetes Social History Advance Directives: No Advance Directives Information Provided: Yes Advance Directives on File: No Would like to be referred to Claim Approver for info?: No Smoking Status: Current every day smoker What tobacco products do you use: cigarettes Smoking packs per day: 0.5 Smoking cigarettes per day: 10.0 Nicotine containing products detail: Quit smoking 3 days ago How often do you have a drink containing alcohol: never 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 in last 30 days?: No caffeine: Yes Caffeine use details: pop 1-2 cans daily Highest level of school completed/degree received: high school graduate Spiritual Healthcare Practices: none Voodoo Healthcare Practices: none Cultural Healthcare Practices: none Father Diabetes (Updated 04/10/23 @ 16:22 by Sully Tavarez RN) Diabetes History of anxiety History of depression History of ovarian cyst Hypertension Last menstrual period (LMP) < 10 days ago Pre Anesthesia Exam Airway Exam Dentition: No Problems Mallampati: III Mouth opening: greater than or equal to 3 cm Hyoid to Mentum: greater or equal to 6 cm C-Spine: Normal Neck Anatomy: Normal Jaw Protrusion: Normal: lower incisors can protrude past upper incisors Exiting Airway: None Respiratory Common normals: normal respiratory effort, No retractions and No use of accessory muscles Effort inspection: able to speak in complete sentences Cardio Common normals: regular rate and regular rhythm Rate: regular rate Rhythm: regular rhythm Meds Home Medications and Allergies Home Medications Medication Instructions Recorded Confirmed Type metoprolol tartrate 25 mg tablet 25 mg ORAL BID blood pressure 06/29/20 04/17/23 History clonidine HCl 0.1 mg tablet 0.1 mg ORAL BID blood pressure 10/22/20 04/17/23 History diclofenac sodium 100 mg 100 mg ORAL DAILY arthritis pain 10/22/20 04/10/23 History tablet,extended release 24 hr omeprazole 20 mg capsule,delayed 20 mg ORAL DAILY gerd 10/22/20 04/10/23 History release amlodipine 5 mg tablet 5 mg ORAL DAILY blood pressure 04/14/21 04/17/23 History lovastatin 20 mg tablet 20 mg ORAL DAILY cholesterol 04/14/21 04/10/23 History benazepril 20 1 tablet ORAL DAILY blood pressure 06/02/22 04/17/23 History mg-hydrochlorothiazi de 25 mg tablet cholecalciferol (vitamin D3) 50 2,000 unit ORAL DAILY supplement 06/02/22 04/10/23 History mcg (2,000 unit) tablet dulaglutide 0.75 mg/0.5 mL 0.75 mg subcut MO diabetes 06/02/22 04/17/23 History subcutaneous pen injector (Trulicity) empagliflozin 25 mg tablet 25 mg ORAL DAILY diabetes 06/02/22 04/17/23 History (Jardiance) ergocalciferol (vitamin D2) 1,250 50,000 unit ORAL MO supplement 06/02/22 04/10/23 History mcg (50,000 unit) capsule metformin 500 mg tablet 1,000 mg ORAL BID dmt2 06/02/22 04/17/23 History cyclobenzaprine 5 mg tablet 5 mg ORAL BID PRN muscle spasm #10 01/03/23 04/10/23 Rx tabs Allergies Allergy/AdvReac Type Severity Reaction Status Date / Time hydromorphone [From Dilaudid] AdvReac Itching Verified 04/10/23 16:21 Obstetrical History History : 2 Para: 2 Pre Anesthesia Results Vital Signs Height: 1.65 m Weight: 105 kg BMI: 38.5 Labs Labs: Laboratory Results - last 24 hr 04/17/23 08:20 Glucometer 144 H Anesthesia Plan Plan Type of Anesthesia Planned:: Monitored Anesthesia Care Monitors: Standard Anesthesia Risk ASA Physical Status: ASA 3 Aspiration risk: No Consent Consent: Risk/Benefit of anesthesia plan blood product discussed Patient/Family understand a (more content not included)... Normal [facility] Urine Cultureon 03-28-2023 Bacteria identified Cx Nom (U) ORGANISM ID: [id number] Escherichia coli - Isolated [place] Count >100,000 CFU/ml Gram Negative Sensitivity 66 ORGANISM ID: 1.1 ANTIBIOTIC INTERPRETATION [place] STATUS Reason for Study: Does the patient have one or more UTI symptoms? Y Relevant Clinical Information: uti symptoms Ampicillin R F Ampicillin/Sulbactam S F Cefazolin S F Cefepime S F Extended Spectrum Beta Lactama NEG F Cefoxitin S F Ceftazidime S F Ceftriaxone S F Ciprofloxacin S F Ertapenem S F Imipenem S F Levofloxacin S F Nitrofurantoin S F Tobramycin S F Trimethoprim/Sulfame thoxazole S F Piperacillin/Tazobac mathew S F Normal [facility] Comment on above: Order Comment: Speci men Type: Unknown Relevant Clinical Information: POSITIVE COLOGUARD, POOR PREP Ordering Facility: [facility] Lab-CLIA#[id number] Address: [address] [place] [address] Performed By: #### H CGQ #### [facility] Lab-CLIA#[id number] CLIA [id number] [address] [place] [address] Dimitri Herron DO, FCAP Urgent Care Noteon 3 Urgent Care Note [facility] [address] [facility] [address]nd [place] [address] Urgent Care Note Signed with Favian Patient: Amy Naidu MR#: [id number] : 1975 Acct: [id number] Age/Sex: 47 / F Loc: [facility]. Date of Service: 03/26/[address]: Sagar Lema SAUSAGE TIER cc: Chago Edwards DO ADDENDUM Office Procedure Documentation entered by Kadi Jhaveri LPN 03/26/23 14:05: POC Procedure Completed Procedure Procedure Completed?: Yes Details: Laboratory Tests 03/26/23 13:20 Urine Color Dark Yellow Urine Appearance Clear Urine pH 6.0 Ur Specific Graham >=1.030 POC Urine Protein Conf 100 A POC Urine Glucose 500 A Urine Ketones Negative Urine Blood Small A POC Urine Nitrate Positive A POC Ur Bilirubin Conf Negative Urine Urobilinogen 0.2 Ur Leukocyte Esterase Small A Addendum Dictated By: Sagar Lema SAUSAGE TIER Addendum Signed By: Addendum Cosigned By: DD/ TD/TT: 03/26/23 Intake Vital Signs ([facility]) 03/26/23 13:15 Height 5 ft 4.96 in Weight 212 lb 4.882 oz BMI 35.4 BP 127/83 Blood Pressure Location Lt brachial Position Sitting Respiration 18 Pulse 75 Pulse Source Monitor Temp 98.3 F Temp Source Oral Pulse Oximetry (%) 96 Oxygen Delivery Method Room Air Intake Visit Reasons: uti symptoms Is patient in acute pain: Yes (12/11) Allergies hydromorphone [From Dilaudid] Adverse Reaction (Verified 03/26/23 13:15) Itching Smoking risk assessment performed?: Yes Medications - Last Reconciled 03/26/23 by Hawa Lim LPN amlodipine 5 mg ORAL DAILY benazepril-hydrochlo rothiazide 20-25 mg 1 TABLET ORAL DAILY cholecalciferol (vitamin D3) 2,000 units ORAL DAILY clonidine HCl 0.1 mg ORAL BID cyclobenzaprine 5 mg ORAL BID PRN diclofenac sodium ER 100 mg ORAL DAILY dulaglutide (Trulicity) 0.75 mg subcut MO empagliflozin (Jardiance) 25 mg ORAL DAILY ergocalciferol (vitamin D2) 50,000 units ORAL MO lovastatin 20 mg ORAL DAILY metformin 1,000 mg ORAL BID metoprolol tartrate 25 mg ORAL BID omeprazole 20 mg ORAL DAILY History History 2 Elective abortions 0 Para 2 Spontaneous abortions 0 Hx # Term Pregnancies 2 Ectopic pregnancies 0 Hx # Pregnancies 0 Multiple births 0 Specific Travel Risk - COVID-19 Travel from high risk country; contact w/ high risk person(s): No PHQ-2/9 . Over the last 2 weeks, how often have you been bothered by any of the following problems? 1. Little interest or pleasure in doing things: not at all 2. Feeling down, depressed, or hopeless: not at all PHQ-2: Total score: 0 9. Thoughts that you would be better off or of hurting yourself in some way: not at all 0-4 None-Minimal, 5-9 Mild, 10-14 Moderate, 15-19 Moderately Severe, 20-27 Severe Source: Developed by Drs. Goran Moreno, Kaylee Tolentino, John Ambrosio and colleagues, with an educational michelle from [employer]. .. Nurse's Note Nurse's Note: pt c/o burning with urination, lower back and lower abdominal pain x1 day no otc meds today HPI Urgent Care HPI COVID-19 Testing ordered at today's visit? (Not Rapid/POC testing in clinic): No Details: Pt presents today with complaints of dysuria and urinary frequency. Pt states that symptoms began yesterday. Pt has not taken any medications for symptoms. Denies fever. Denies N/V/D. Denies ches tpain. Denies hematuria. Denies wheezing/shortness of breath. No other complaints voiced at this time [facility] Medical History Diabetes History of anxiety History of depression History of ovarian cyst Hypertension Surgical History H/O lithotripsy History of Family History Father Diabetes Social History Advance Directives: No Advance Directives Information Provided: No Advance Directives on File: No Smoking Status: Current every day smoker What tobacco products do you use: cigarettes Smoking packs per day: 0.5 Smoking cigarettes per day: 10.0 Nicotine containing products detail: Quit smoking 3 days ago How often do you have a drink containing alcohol: never 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 in last 30 days?: No caffeine: Yes Caffeine use details: pop 1-2 cans daily Highest level of school completed/degree received: high school graduate Father Diabetes Diabetes History of anxiety History of depression (more content not included)... Normal [facility] Urinalysis Routine Dipstick POCon 03-26-2023 Appearance (U) Clear Normal Clear [facility] Comment on above: Order Comment: Speci men Type: Unknown Relevant Clinical Information: POSITIVE COLOGUARD, POOR PREP Ordering Facility: [facility] Lab-CLIA#[id number] Address: [address] [place] [address] Performed By: #### H CGQ #### [facility] Lab-CLIA#[id number] CLIA [id number] [address] [place] [address] Dimitri Herron DO,FCAP Protein (U) [Mass/Vol] 100 mg/dL Abnormal Negative So [facility] Comment on above: Order Comment: Speci men Type: Unknown Relevant Clinical Information: POSITIVE COLOGUARD, POOR PREP Ordering Facility: [facility] Lab-CLIA#[id number] Address: [address] [place] [address] Performed By: #### H CGQ #### [facility] Lab-CLIA#[id number] CLIA [id number] [address] [place] [address] Dimitri Herron DO,FCAP Ur Specific Graham >=1.030 Normal 1.000-1.030 [facility] Comment on above: Order Comment: Speci men Type: Unknown Relevant Clinical Information: POSITIVE COLOGUARD, POOR PREP Ordering Facility: [facility] Lab-CLIA#[id number] Address: [address] [place] [address] Performed By: #### H CGQ #### [facility] Lab-CLIA#[id number] CLIA [id number] [address] [place] [address] Dimitri Herron DO,FCAP Urine Bilirubin POC Negative Normal Negative [facility] Comment on above: Order Comment: Speci men Type: Unknown Relevant Clinical Information: POSITIVE COLOGUARD, POOR PREP Ordering Facility: [facility] Lab-CLIA#[id number] Address: [address] [place] [address] Performed By: #### H CGQ #### [facility] Lab-CLIA#[id number] CLIA [id number] [address] [place] [address] Dimitri Herron DO,FCAP Urine Blood POC Small Abnormal Negative [facility] Comment on above: Order Comment: Speci men Type: Unknown Relevant Clinical Information: POSITIVE COLOGUARD, POOR PREP Ordering Facility: [facility] Lab-CLIA#[id number] Address: [address] [place] [address] Performed By: #### H CGQ #### [facility] Lab-CLIA#[id number] CLIA [id number] [address] [place] [address] Dimitri Herron DO,FCAP Urine Color POC Dark Yellow Normal Yellow [facility] Comment on above: Order Comment: Speci men Type: Unknown Relevant Clinical Information: POSITIVE COLOGUARD, POOR PREP Ordering Facility: [facility] Lab-CLIA#[id number] Address: [address] [place] [address] Performed By: #### H CGQ #### [facility] Lab-CLIA#[id number] CLIA [id number] [address] [place] [address] Dimitri Herron DO,FCAP Urine Glucose POC 500 mg/dL Abnormal Negative [facility] Comment on above: Order Comment: Speci men Type: Unknown Relevant Clinical Information: POSITIVE COLOGUARD, POOR PREP Ordering Facility: [facility] Lab-CLIA#[id number] Address: [address] [place] [address] Performed By: #### H CGQ #### [facility] Lab-CLIA#[id number] CLIA [id number] [address] [place] [address] Dimitri Herron DO,FCAP Urine Ketones POC Negative Normal Negative [facility] Comment on above: Order Comment: Speci men Type: Unknown Relevant Clinical Information: POSITIVE COLOGUARD, POOR PREP Ordering Facility: [facility] Lab-CLIA#[id number] Address: [address] [place] [address] Performed By: #### H CGQ #### [facility] Lab-CLIA#[id number] CLIA [id number] [address] [place] [address] Vincent Randaisi, DO,FCAP Urine Leukocyte Esterase POC Small Abnormal Negative [facility] Comment on above: Order Comment: Speci men Type: Unknown Relevant Clinical Information: POSITIVE COLOGUARD, POOR PREP Ordering Facility: [facility] Lab-CLIA#[id number] Address: [address] [place] [address] Performed By: #### H CGQ #### [facility] Lab-CLIA#[id number] CLIA [id number] [address] [place] [address] Dimitri Herron, DO,FCAP Urine Nitrites POC Positive Abnormal Negative [facility] Comment on above: Order Comment: Speci men Type: Unknown Relevant Clinical Information: POSITIVE COLOGUARD, POOR PREP Ordering Facility: [facility] Lab-CLIA#[id number] Address: [address] [place] [address] Performed By: #### H CGQ #### [facility] Lab-CLIA#[id number] CLIA [id number] [address] [place] [address] Dimitri Herron, DO,FCAP Urine pH POC 6.0 Normal <=7.5 [facility] Comment on above: Order Comment: Speci men Type: Unknown Relevant Clinical Information: POSITIVE COLOGUARD, POOR PREP Ordering Facility: [facility] Lab-CLIA#[id number] Address: [address] [place] [address] Performed By: #### H CGQ #### [facility] Lab-CLIA#[id number] CLIA [id number] [address] [place] [address] Dimitri Herron, DO,FCAP Urine Urobilinogen POC 0.2 E.U./dL Normal 0-1.9 [facility] Comment on above: Order Comment: Speci men Type: Unknown Relevant Clinical Information: POSITIVE COLOGUARD, POOR PREP Ordering Facility: [facility] Lab-CLIA#[id number] Address: [address] [place] [address] Performed By: #### H CGQ #### [facility] Lab-CLIA#[id number] CLIA [id number] [address] [place] [address] Dimitri Herron DO, FCAP Urine culture routineOrdered By: Sagar Lema on 03-26-2023 Bacteria identified Cx Nom (U) Escherichia coli [facility] Surgery Generalon 03-14-2023 [facility] [address] [place] [address] [address] [place] [address] Surgery General Signed Patient: Amy Naidu MR#: [id number] : 1975 Acct: [id number] Age/Sex: 47 / F Loc: SURG.AV Date of Service: 03/14/[address]: Roman Breaux D.O. cc: Chago Edwards DO Intake Vital Signs ([facility]) 03/14/23 14:13 Height 5 ft 5 in Weight 217 lb 13.067 oz BMI 36.2 BP 151/95 Pulse 78 Intake Visit Reasons: New Pt-Colonoscopy Is patient in acute pain: No Allergies hydromorphone [From Dilaudid] Adverse Reaction (Verified 03/14/23 14:14) Itching Smoking risk assessment performed?: Yes Medications - Last Reconciled 03/14/23 by Aric Groves LPN amlodipine 5 mg ORAL DAILY benazepril-hydrochlo rothiazide 20-25 mg 1 TABLET ORAL DAILY cholecalciferol (vitamin D3) 2,000 units ORAL DAILY clonidine HCl 0.1 mg ORAL BID cyclobenzaprine 5 mg ORAL BID PRN diclofenac sodium ER 100 mg ORAL DAILY dulaglutide (Trulicity) 0.75 mg subcut MO empagliflozin (Jardiance) 25 mg ORAL DAILY ergocalciferol (vitamin D2) 50,000 units ORAL MO lovastatin 20 mg ORAL DAILY metformin 1,000 mg ORAL BID metoprolol tartrate 25 mg ORAL BID omeprazole 20 mg ORAL DAILY History History 2 Elective abortions 0 Para 2 Spontaneous abortions 0 Hx # Term Pregnancies 2 Ectopic pregnancies 0 Hx # Pregnancies 0 Multiple births 0 Specific Travel Risk - COVID-19 Travel from high risk country; contact w/ high risk person(s): No COVID-19 Symptoms: No PHQ-2/9 . Over the last 2 weeks, how often have you been bothered by any of the following problems? 1. Little interest or pleasure in doing things: not at all 2. Feeling down, depressed, or hopeless: not at all PHQ-2: Total score: 0 9. Thoughts that you would be better off or of hurting yourself in some way: not at all 0-4 None-Minimal, 5-9 Mild, 10-14 Moderate, 15-19 Moderately Severe, 20-27 Severe Source: Developed by Drs. Goran Moreno, Kaylee Tolentino, John Ambrosio and colleagues, with an educational michelle from [employer]. .. 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 in last 30 days?: No caffeine: Yes Caffeine use details: pop 1-2 cans daily Highest level of school completed/degree received: high school graduate Father Diabetes (Updated 03/16/23 @ 19:58 by Roman Breaux DO) Diabetes History of anxiety History of depression History of ovarian cyst Hypertension HPI Surgery HPI Details: 47-year-old female here today to discuss a positive Cologuard test. She is no family history of colon cancer. No stigmata of bleeding. She is not taking blood thinners. She is never had a pr evious colonoscopy. She does have some crampy abdominal pain across her upper abdomen which is not aggravated or relieved by any intracystic factor. Does not radiate elsewhere than otherwise noted. She had a CT recently which showed diverticulosis hepatic steatosis and gastroenteritis. Questionnaire C-SSRS (Primary Care) In the Past Month 1) Have you wished you were or wished you could go to sleep and not wake up?: No 2) Have you actually had any thoughts of killing yourself?: No In Your Lifetime 6) Have you ever done anything, started to do anything, or prepared to do anything to end your life?: No [employer] [facility] Review of Systems (Surgeons) Const Denies chills, Denies fever(s) and Denies headache(s) Eyes Denies blurry vision and Denies diplopia ENT Denies dizziness, headache(s) or sore throat Card Denies chest pain and Denies dyspnea Resp Denies cough or dyspnea GI Denies abdominal pain, Denies hematochezia, Denies constipation, Reports GI cramping, Denies diarrhea, Denies nausea and Denies vomiting Denies difficulty voiding or dysuria Musc Denies muscle c (more content not included)... Normal [facility] USTRANVAGon 01-30-2023 USTRANVAG [place] [address] Ultrasound Report Signed Patient: Amy Naidu MR#: [id number] : 1975 Acct: [id number] Age/Sex: 47 / F ADM Date: 01/30/23 Loc: [facility]. Attending Dr: Shaunna Estevez Ordering Physician: Shaunna Estevez Date of Service: 01/30/23 Procedure(s): US transvaginal Accession Number(s): [id number] cc: Chago Edwards DO; Shaunna Estevez ULTRASOUND TRANSVAGINAL TECHNIQUE: Real time endovaginal sonographic imaging of the female pelvis was performed. COMPARISON: CT 01-05-23 FINDINGS: Uterus: Position: Retroflexed Measurement: 9.91cm x 3.85cm x 3.62cm Echotexture: Heterogeneous Volume: 72.4mL Endometrial Thickness: 11.2mm Multiple anechoic structures within the cervix most consistent with nabothian cysts. The ovaries are not well visualized due to overlying bowel gas. Free Fluid: None End of Report US/US transvaginal IMPRESSION: 1. No evidence of acute process. 2. Multiple nabothian cysts within the cervix. Electronically Signed By: Graham Baum D.O. 01/30/23 1223 [id number] Normal [facility] Amylaseon 01-06-2023 Amylase [Catalytic activity/Vol] 108 U/L Normal 30-118 [facility] Comment on above: Order Comment: Speci men Type: Unknown Relevant Clinical Information: POSITIVE COLOGUARD Ordering Facility: [facility] Address: , , Performed By: #### G LUCOMETER #### [facility] Basic Metabolic Panelon 100 Anion gap [Moles/Vol] 12 mmol/L Normal 7-17 [facility] Comment on above: Order Comment: Speci men Type: Unknown Relevant Clinical Information: POSITIVE COLOGUARD Ordering Facility: [facility] Address: , , Performed By: #### G LUCOMETER #### POC Calcium [Mass/Vol] 9.7 mg/dL Normal 8.3-10.6 [facility] Comment on above: Order Comment: Speci men Type: Unknown Relevant Clinical Information: POSITIVE COLOGUARD Ordering Facility: [facility] Address: , , Performed By: #### G LUCOMETER #### POC Chloride [Moles/Vol] 104 mmol/L Normal 98-107 [facility] Comment on above: Order Comment: Speci men Type: Unknown Relevant Clinical Information: POSITIVE COLOGUARD Ordering Facility: [facility] Address: , , Performed By: #### G LUCOMETER #### POC CO2 [Moles/Vol] 27 mmol/L Normal 20-31 [facility] Comment on above: Order Comment: Speci men Type: Unknown Relevant Clinical Information: POSITIVE COLOGUARD Ordering Facility: [facility] Address: , , Performed By: #### G LUCOMETER #### POC Creatinine [Mass/Vol] 1.070 mg/dL High 0.55-1.02 So [facility] Comment on above: Order Comment: Speci men Type: Unknown Relevant Clinical Information: POSITIVE COLOGUARD Ordering Facility: [facility] Address: , , Performed By: #### G LUCOMETER #### POC Creatinine Clr Calc Pharmacy 60 Normal [facility] Comment on above: Order Comment: Speci men Type: Unknown Relevant Clinical Information: POSITIVE COLOGUARD Ordering Facility: [facility] Address: , , Performed By: #### G LUCOMETER #### POC GFR/1.73 sq M.predicted MDRD (S/P/Bld) [Vol rate/Area] 59 mL/min/{1.73_m2} Low [facility] Comment on above: Order Comment: Speci men Type: Unknown Relevant Clinical Information: POSITIVE COLOGUARD Ordering Facility: [facility] Address: , , Result Comment: K/DO QI Guideline: Stage 1 >/=90 mL/min/1.73m2 - Not Consistent with CKD Stage 2 60-89 mL/min/1.73m2 - Consistent with Mild CKD Stage 3 30-59 mL/min/1.73m2 - Consistent with Moderate CKD Stage 4 15-29 mL/min/1.73m2 - Consistent with Severe CKD Stage 5 <15 mL/min/1.73m2 - Consistent with Kidney Failure Estimated Glomerular Filtration Rate (eGFR) is a calculated value utilizing the MDRD equation and provides an estimate of renal function. The equation assumes a steady state and should not be used for patients that meet any of the following criteria: - Are younger than 18 or older than 70 - Have rapidly fluctuating kidney function - Are - Have serious comorbid conditions - Have extremes of body size - Have extremes of muscle mass - Have extremes of nutritional status - Are non- or non- - Have normal kidney function Performed By: #### G LUCOMETER #### POC Glucose [Mass/Vol] 128 mg/dL High 74-106 [facility] Comment on above: Order Comment: Speci men Type: Unknown Relevant Clinical Information: POSITIVE COLOGUARD Ordering Facility: [facility] Address: , , Performed By: #### G LUCOMETER #### POC Potassium [Moles/Vol] 3.9 mmol/L Normal 3.5-5.1 [facility] Comment on above: Order Comment: Speci men Type: Unknown Relevant Clinical Information: POSITIVE COLOGUARD Ordering Facility: [facility] Address: , , Performed By: #### G LUCOMETER #### POC Sodium [Moles/Vol] 139 mmol/L Normal 136-145 [facility] Comment on above: Order Comment: Speci men Type: Unknown Relevant Clinical Information: POSITIVE COLOGUARD Ordering Facility: [facility] Address: , , Performed By: #### G LUCOMETER #### POC Urea nitrogen [Mass/Vol] 17 mg/dL Normal 9-23 [facility] Comment on above: Order Comment: Speci men Type: Unknown Relevant Clinical Information: POSITIVE COLOGUARD Ordering Facility: [facility] Address: , , Performed By: #### G LUCOMETER #### POC CBC w/ Auto Diffon 3 Basophils Absolute Auto 0.02 10*3/uL Normal 0.00-0.10 [facility] Comment on above: Order Comment: Speci men Type: Unknown Relevant Clinical Information: Left flank pain, dizzy, vomiting Ordering Facility: [facility] Lab-CLIA#[id number] Address: [address] [place] [address] Performed By: #### C BC #### [facility] Lab-CLIA#[id number] CLIA [id number] [address] [place] [address] Dimitri Herron, DO,FCAP Basophils/100 WBC (Bld) 0.2 % Normal 0.0-1.3 [facility] Comment on above: Order Comment: Speci men Type: Unknown Relevant Clinical Information: Left flank pain, dizzy, vomiting Ordering Facility: [facility] Lab-CLIA#[id number] Address: [address] [place] [address] Performed By: #### C BC #### [facility] Lab-CLIA#[id number] CLIA [id number] [address] [place] [address] Dimitri Herron DO,FCAP Eosinophils (Bld) [#/Vol] 0.36 10*3/uL Normal 0.00-0.50 [facility] Comment on above: Order Comment: Speci men Type: Unknown Relevant Clinical Information: Left flank pain, dizzy, vomiting Ordering Facility: [facility] Lab-CLIA#[id number] Address: [address] [place] [address] Performed By: #### C BC #### [facility] Lab-CLIA#[id number] CLIA [id number] [address] [place] [address] Vincent Randaisi, DO,FCAP Eosinophils/100 WBC (Bld) 3.0 % Normal 0.0-5.8 [facility] Comment on above: Order Comment: Speci men Type: Unknown Relevant Clinical Information: Left flank pain, dizzy, vomiting Ordering Facility: [facility] Lab-CLIA#[id number] Address: [address] [place] [address] Performed By: #### C BC #### [facility] Lab-CLIA#[id number] CLIA [id number] [address] [place] [address] Vincent Randaisi, DO,FCAP Erythrocyte distribution width (RBC) [Ratio] 15.9 % High 11.6-14.8 [facility] Comment on above: Order Comment: Speci men Type: Unknown Relevant Clinical Information: Left flank pain, dizzy, vomiting Ordering Facility: [facility] Lab-CLIA#[id number] Address: [address] [place] [address] Performed By: #### C BC #### [facility] Lab-CLIA#[id number] CLIA [id number] [address] [place] [address] Vincent Randaisi, DO,FCAP Hematocrit (Bld) [Volume fraction] 49.5 % High 35.4-47.9 [facility] Comment on above: Order Comment: Speci men Type: Unknown Relevant Clinical Information: Left flank pain, dizzy, vomiting Ordering Facility: [facility] Lab-CLIA#[id number] Address: [address] [place] [address] Performed By: #### C BC #### [facility] Lab-CLIA#[id number] CLIA [id number] [address] [place] [address] Dimitri Herron, DO,FCAP Hemoglobin (Bld) [Mass/Vol] 16.1 g/dL High 11.9-16.0 [facility] Comment on above: Order Comment: Speci men Type: Unknown Relevant Clinical Information: Left flank pain, dizzy, vomiting Ordering Facility: [facility] Lab-CLIA#[id number] Address: [address] [place] [address] Performed By: #### C BC #### [facility]-CLIA#[id number] CLIA [id number] [address] [place] [address] Dimitri Herron DO,FCAP Lymphocytes (Bld) [#/Vol] 2.10 10*3/uL Normal 0.80-3.30 [facility] Comment on above: Order Comment: Speci men Type: Unknown Relevant Clinical Information: Left flank pain, dizzy, vomiting Ordering Facility: [facility]-CLIA#[id number] Address: [address] [place] [address] Performed By: #### C BC #### [facility]-CLIA#[id number] CLIA [id number] [address] [place] [address] Dimitri Herron DO,FCAP Lymphocytes/100 WBC (Bld) 17.7 % Normal 13.4-45.1 [facility] Comment on above: Order Comment: Speci men Type: Unknown Relevant Clinical Information: Left flank pain, dizzy, vomiting Ordering Facility: [facility]-CLIA#[id number] Address: [address] [place] [address] Performed By: #### C BC #### [facility]-CLIA#[id number] CLIA [id number] [address] [place] [address] Dimitri Herron DO,FCAP MCH (RBC) [Entitic mass] 28.1 pg Normal 27.2-33.0 [facility] Comment on above: Order Comment: Speci men Type: Unknown Relevant Clinical Information: Left flank pain, dizzy, vomiting Ordering Facility: [facility]-CLIA#[id number] Address: [address] [place] [address] Performed By: #### C BC #### [facility]-CLIA#[id number] CLIA [id number] [address] [place] [address] Dimitri Herron, DO,FCAP MCHC (RBC) [Mass/Vol] 32.5 g/dL Normal 31.9-35.1 [facility] Comment on above: Order Comment: Speci men Type: Unknown Relevant Clinical Information: Left flank pain, dizzy, vomiting Ordering Facility: [facility]-CLIA#[id number] Address: [address] [place] [address] Performed By: #### C BC #### [facility]-CLIA#[id number] CLIA [id number] [address] [place] [address] Dimitri Herron DO,FCAP MCV (RBC) [Entitic vol] 86.4 fL Normal 82.1-97.1 [facility] Comment on above: Order Comment: Speci men Type: Unknown Relevant Clinical Information: Left flank pain, dizzy, vomiting Ordering Facility: [facility]-CLIA#[id number] Address: [address] [place] [address] Performed By: #### C BC #### [facility]-CLIA#[id number] CLIA [id number] [address] [place] [address] Dimitri Herron, DO,FCAP Monocytes (Bld) [#/Vol] 0.61 10*3/uL Normal 0.30-0.90 [facility] Comment on above: Order Comment: Speci men Type: Unknown Relevant Clinical Information: Left flank pain, dizzy, vomiting Ordering Facility: [facility]-CLIA#[id number] Address: [address] [place] [address] Performed By: #### C BC #### [facility]-CLIA#[id number] CLIA [id number] [address] [place] [address] Dimitri Herron DO,FCAP Monocytes/100 WBC (Bld) 5.1 % Normal 4.0-12.7 [facility] Comment on above: Order Comment: Speci men Type: Unknown Relevant Clinical Information: Left flank pain, dizzy, vomiting Ordering Facility: [facility]-CLIA#[id number] Address: [address] [place] [address] Performed By: #### C BC #### [facility]-CLIA#[id number] CLIA [id number] [address] [place] [address] Dimitri Herron DO,FCAP Neutrophils Absolute Auto 8.73 10*3/uL High 1.70-7.00 [facility] Comment on above: Order Comment: Speci men Type: Unknown Relevant Clinical Information: Left flank pain, dizzy, vomiting Ordering Facility: [facility]-CLIA#[id number] Address: [address] [place] [address] Performed By: #### C BC #### [facility]-CLIA#[id number] CLIA [id number] [address] [place] [address] Dimitri Herron DO,FCAP Neutrophils/100 WBC (Bld) 73.6 % Normal 41.1-75.9 [facility] Comment on above: Order Comment: Speci men Type: Unknown Relevant Clinical Information: Left flank pain, dizzy, vomiting Ordering Facility: [facility]-CLIA#[id number] Address: [address] [place] [address] Performed By: #### C BC #### [facility]-CLIA#[id number] CLIA [id number] [address] [place] [address] Dimitri Herron DO,FCAP Platelet mean volume (Bld) [Entitic vol] 12.3 fL High 8.6-12.2 [facility] Comment on above: Order Comment: Speci men Type: Unknown Relevant Clinical Information: Left flank pain, dizzy, vomiting Ordering Facility: [facility]-CLIA#[id number] Address: [address] [place] [address] Performed By: #### C BC #### [facility]-CLIA#[id number] CLIA [id number] [address] [place] [address] Vincent Randaisi, DO,FCAP Platelets (Bld) [#/Vol] 270 10*3/uL Normal 133-425 [facility] Comment on above: Order Comment: Speci men Type: Unknown Relevant Clinical Information: Left flank pain, dizzy, vomiting Ordering Facility: [facility]-CLIA#[id number] Address: [address] [place] [address] Performed By: #### C BC #### [facility]-CLIA#[id number] CLIA [id number] [address] [place] [address] Vincent Randaisi, DO,FCAP RBC (Bld) [#/Vol] 5.73 10*6/uL High 3.40-5.40 [facility] Comment on above: Order Comment: Speci men Type: Unknown Relevant Clinical Information: Left flank pain, dizzy, vomiting Ordering Facility: [facility]-CLIA#[id number] Address: [address] [place] [address] Performed By: #### C BC #### [facility]-CLIA#[id number] CLIA [id number] [address] [place] [address] Vincent Randaisi, DO,FCAP WBC (Bld) [#/Vol] 11.9 10*3/uL High 4.5-11.0 [facility] Comment on above: Order Comment: Speci men Type: Unknown Relevant Clinical Information: Left flank pain, dizzy, vomiting Ordering Facility: [facility]-CLIA#[id number] Address: [address] [place] [address] Performed By: #### C #### [facility]-CLIA#[id number] CLIA [id number] [address] [place] [address] Dimitri Herron DO, FCAP CTABDPELWOon 01-06-[address] [address] [address] Scan Report Signed Patient: Amy Naidu MR#: [id number] : 1975 Acct: [id number] Age/Sex: 47 / F ADM Date: 01/05/23 Loc: ER.SV Attending Dr: Ordering Physician: Nichelle Gil CNP Date of Service: 01/05/23 Procedure(s): CT abdomen pelvis wo con Accession Number(s): [id number] cc: Nichelle Gil SAUSAGE TIER; Chago Edwards DO CT ABDOMEN AND PELVIS TECHNICAL: Contiguous axial imaging from the lung bases through pelvis. Additional coronal and sagittal reformatted imaging was performed. Radiation optimization: CT was performed using one or more of the following dose reduction techniques: Automated exposure control, adjustment of the MA and/or KV according to patient size, and/or use of iterative reconstruction techniques. Contrast Pharmaceutical: None Route of administration: N/A Enteric contrast: None CLINICAL INFORMATION: Flank pain COMPARISON: 06/23 FINDINGS: Evaluation is limited by the lack of contrast. LOWER THORAX: Minimal dependent atelectasis LIVER: Hepatic steatosis. GALLBLADDER/BILIARY TREE: No gallbladder distention. No biliary duct dilation. SPLEEN: Unremarkable. PANCREAS: Punctate calcifications near the inferior aspect of the pancreatic head. Consider sequela of chronic pancreatitis ADRENAL GLANDS: No nodule or cyst. KIDNEYS/URETERS/URIN [place] BLADDER: Collapsed bladder. There is no hydronephrosis or obstructing stone. GASTROINTESTINAL: Small amount of fluid within the stomach. Thick-walled small bowel. Correlate for sequela of recent ingestion or enteritis. Fecal filled colon. Colonic diverticulosis. Minimally enlarged appendix. Measuring 7.1 mm on image 98. Air in the lumen. No adjacent fluid/stranding. Likely incidental. Correlate clinically to exclude early acute process PELVIS/REPRODUCTIVE: Slightly nodular appearance to the fundal region of the uterus. The ovaries are not seen. AORTA: The aorta is non-aneurysmal. LYMPH NODES: Small lymph nodes. OSSEOUS STRUCTURES: Multilevel degenerative changes and disc disease. SOFT TISSUES: No significant soft tissue abnormality. End of Report CT/CT abdomen pelvis wo con IMPRESSION: 1. Colonic diverticulosis. 2. Hepatic steatosis 3. Mild small bowel wall thickening. Electronically Signed By: Álvaro Palomino D.O. 01/05/23 [id number] Normal [facility] Emergency Department Noteon 01-06-2023 Emergency Department Note [facility] [place] [id number] [place] [address] Emergency Department Note Signed Patient: Amy Naidu MR#: [id number] : 1975 Acct: [id number] Age/Sex: 47 / F ADM Date: 01/05/23 Loc: ER.SV Attending Dr: Nichelle Gil CNP cc: Chago Edwards DO HPI - General Adult General Chief complaint: Nausea/Vomiting/Diar denia Stated complaint: Left flank pain, dizzy, vomiting Time Seen by Provider: 01/05/23 22:52 Source: patient Mode of arrival: ambulatory Limitations: no limitations History of Present Illness HPI narrative: Patient came to ER with reports of nausea and vomiting all day today as well as left flank pain that started yesterday. Patient also reports that she has felt lightheaded today as well. Patient denies headache. She denies chest pain and dyspnea. She denies trouble with urinating or having bm's. She denies rectal bleeding and melena. She denies being around anyone sick that she knows of. She denies leg pain and swelling. MD complaint: Nausea/Vomiting; Left Flank pain Onset (ago): hour(s) Location: back Radiation: non-radiation Severity: moderate Severity scale (1-10): 4 Quality: aching Pain Consistency: intermittent Relieving factors: none Exacerbating factors: movement Associated symptoms: loss of appetite, nausea/vomiting and weakness Treatments prior to arrival: none Related Data Home medications: Home Medications Medication Instructions Recorded Confirmed metoprolol tartrate 25 mg tablet 25 mg ORAL BID blood pressure 06/29/20 01/03/23 clonidine HCl 0.1 mg tablet 0.1 mg ORAL BID blood pressure 10/22/20 01/03/23 diclofenac sodium 100 mg 100 mg ORAL DAILY arthritis pain 10/22/20 01/03/23 tablet,extended release 24 hr omeprazole 20 mg capsule,delayed 20 mg ORAL DAILY gerd 10/22/20 01/03/23 release amlodipine 5 mg tablet 5 mg ORAL DAILY blood pressure 04/14/21 01/03/23 lovastatin 20 mg tablet 20 mg ORAL DAILY cholesterol 04/14/21 01/03/23 benazepril 20 1 tablet ORAL DAILY blood pressure 06/02/22 01/03/23 mg-hydrochlorothiazi de 25 mg tablet cholecalciferol (vitamin D3) 50 2,000 unit ORAL DAILY supplement 06/02/22 01/03/23 mcg (2,000 unit) tablet dulaglutide 0.75 mg/0.5 mL 0.75 mg subcut MO diabetes 06/02/22 01/03/23 subcutaneous pen injector (Trulicity) empagliflozin 25 mg tablet 25 mg ORAL DAILY diabetes 06/02/22 01/03/23 (Jardiance) ergocalciferol (vitamin D2) 1,250 50,000 unit ORAL MO supplement 06/02/22 01/03/23 mcg (50,000 unit) capsule metformin 500 mg tablet 1,000 mg ORAL BID dmt2 06/02/22 01/03/23 Previous Rx's Medication Instructions Recorded ondansetron HCl 4 mg tablet 4 mg ORAL TID PRN nausea and 06/03/22 vomiting #10 tabs cyclobenzaprine 5 mg tablet 5 mg ORAL BID PRN muscle spasm #10 01/03/23 tabs ondansetron 4 mg disintegrating 4 mg ORAL Q6H PRN nausea and 01/06/23 tablet vomiting #14 tabs Allergies/adverse reactions: Allergies Allergy/AdvReac Type Severity Reaction Status Date / Time hydromorphone [From Dilaudid] AdvReac Itching Verified 01/03/23 19:44 Review of Systems Const: Constitutional: Reports system reviewed and no additional complaints, except as documented and weakness; Denies fever(s), chills, fatigue or headache(s) Eyes: Eyes: Reports system reviewed and no additional complaints, except as documented NADYA Gil - Last Filed: 01/18/23 08:34> ENT: ENT: Reports system reviewed and no additional complaints, except as documented and dizziness; Denies headache(s) Cardio: Cardiology: Reports system reviewed and no additional complaints, except as documented; Denies chest pain, dyspnea on exertion, palpitations, ankle/foot swelling or dyspnea Arey, SAUSAGE TIER - Last Filed: 01/18/23 08:34> Resp: Respiratory: Reports system reviewed and no additional complaints, except as documented; Denies cough, wheezing, dyspnea, hemoptysis or dyspnea on exertion Filed: 01/18/23 08:34> Gastro: GI: Reports system reviewed and no additional complaints, except as documented, nausea and vomiting; Denies abdominal pain, diarrhea, constipation, melena or hematochezia Filed: 01/18/23 08:34> Genitou: Genitourinary female: Reports system reviewed and no additional complaints, except as documented and flank pain; Denies dysuria, urinary frequency, urinary incontinence or urinary urgency Last Filed: 01/18/23 08:34> Musculo: Symptoms musculoskeletal: Reports system reviewed and no additional complaints, except as documented Skin/Breast: Symptoms integumentary/breast s: Reports system reviewed and no additional complaints, except as documented Neurologic: Neurologic: Reports system reviewed and no additional complaints, except as documented, dizziness and weakness; Denies headache(s) Psychiatric: Symptoms psychiatric: Reports system (more content not included)... Normal [facility] HCG Qualitativeon 01-06-2023 HCG Qualitative Negative Normal Negative [facility] Comment on above: Order Comment: Speci men Type: Unknown Relevant Clinical Information: POSITIVE COLOGUARD, POOR PREP Ordering Facility: [facility] Lab-CLIA#[id number] Address: [address] [place] [address] Performed By: #### H CGQ #### [facility]-CLIA#[id number] CLIA [id number] [address] [place] [address] Dimitri Herron DO,ARDEN Hepatic Function Panelon Albumin [Mass/Vol] 4.4 g/dL Normal 3.4-5.0 [facility] Comment on above: Order Comment: Speci men Type: Unknown Relevant Clinical Information: POSITIVE COLOGUARD, POOR PREP Ordering Facility: [facility] Lab-CLIA#[id number] Address: [address] [place] [address] Performed By: #### H CGQ #### [facility]-CLIA#[id number] CLIA [id number] [address] [place] [address] Vincent Randaisi, DO,FCAP ALP [Catalytic activity/Vol] 122 U/L High 46-116 [facility] Comment on above: Order Comment: Speci men Type: Unknown Relevant Clinical Information: POSITIVE COLOGUARD, POOR PREP Ordering Facility: [facility] Lab-CLIA#[id number] Address: [address] [place] [address] Performed By: #### H CGQ #### [facility]-CLIA#[id number] CLIA [id number] [address] [place] [address] Vincent Randaisi, DO,FCAP ALT [Catalytic activity/Vol] 22 U/L Normal 10-49 [facility] Comment on above: Order Comment: Speci men Type: Unknown Relevant Clinical Information: POSITIVE COLOGUARD, POOR PREP Ordering Facility: [facility] Lab-CLIA#[id number] Address: [address] [place] [address] Performed By: #### H CGQ #### [facility]-CLIA#[id number] CLIA [id number] [address] [place] [address] Vincent Randaisi, DO,FCAP AST [Catalytic activity/Vol] 21 U/L Normal <34 [facility] Comment on above: Order Comment: Speci men Type: Unknown Relevant Clinical Information: POSITIVE COLOGUARD, POOR PREP Ordering Facility: [facility] Lab-CLIA#[id number] Address: [address] [place] [address] Performed By: #### H CGQ #### [facility]-CLIA#[id number] CLIA [id number] [address] [place] [address] Vincent Randaisi, DO,FCAP Bilirubin [Mass/Vol] 0.6 mg/dL Normal 0.3-1.2 [facility] Comment on above: Order Comment: Speci men Type: Unknown Relevant Clinical Information: POSITIVE COLOGUARD, POOR PREP Ordering Facility: [facility] Lab-CLIA#[id number] Address: [address] [place] [address] Performed By: #### H CGQ #### [facility]-CLIA#[id number] CLIA [id number] [address] [place] [address] Dimitri Herron, DO,FCAP Bilirubin.indirect [Mass/Vol] 0.2 mg/dL Normal <0.4 [facility] Comment on above: Order Comment: Speci men Type: Unknown Relevant Clinical Information: POSITIVE COLOGUARD, POOR PREP Ordering Facility: [facility] Lab-CLIA#[id number] Address: [address] [place] [address] Performed By: #### H CGQ #### [facility]-CLIA#[id number] CLIA [id number] [address] [place] [address] Dimitri Herron, DO,FCAP Protein [Mass/Vol] 8.2 g/dL Normal 5.7-8.2 [facility] Comment on above: Order Comment: Speci men Type: Unknown Relevant Clinical Information: POSITIVE COLOGUARD, POOR PREP Ordering Facility: [facility]-CLIA#[id number] Address: [address] [place] [address] Performed By: #### H CGQ #### [facility]-CLIA#[id number] CLIA [id number] [address] [place] [address] Dimitri Herron, DO,FCAP Lactic Acid Sepsis Reflexon 01-06-2023 Lactic Acid Sepsis Reflex 1.2 mmol/L Normal 0.5-2.0 [facility] Comment on above: Order Comment: Speci men Type: Unknown Relevant Clinical Information: Left flank pain, dizzy, vomiting Ordering Facility: [facility] Lab-CLIA#[id number] Address: [address] [place] [address] Performed By: #### L ACRFX #### [facility]-CLIA#[id number] CLIA [id number] [address] [place] [address] Dimitri Herron DO,FCAP Lipaseon 01-06-2023 Lipase [Catalytic activity/Vol] 64 U/L High 12-53 [facility] Comment on above: Order Comment: Speci men Type: Unknown Relevant Clinical Information: POSITIVE COLOGUARD Ordering Facility: [facility] Address: , , Performed By: #### G LUCOMETER #### [facility] UA Reflex to Micro and Cultu reon 01-06-2023 Appearance (U) Turbid Abnormal Clear [facility] Comment on above: Order Comment: Speci men Type: Unknown Does the patient have one or more UTI symptoms? Y Clean Catch Reason for Study: Does the patient have one or more UTI symptoms? Y Relevant Clinical Information: Left flank pain, dizzy, vomiting Ordering Facility: [facility]-CLIA#[id number] Address: [address] [place] [address] Performed By: #### U [place], UAMRFLX #### [facility]-CLIA#[id number] CLIA [id number] [address] [place] [address] Dimitri Herron DO,FCAP Bilirubin Urine Negative Normal Negative [facility] Comment on above: Order Comment: Speci men Type: Unknown Does the patient have one or more UTI symptoms? Y Clean Catch Reason for Study: Does the patient have one or more UTI symptoms? Y Relevant Clinical Information: Left flank pain, dizzy, vomiting Ordering Facility: [facility]-CLIA#[id number] Address: [address] [place] [address] Performed By: #### U [place], UAMRFLX #### [facility]-CLIA#[id number] CLIA [id number] [address] [place] [address] Dimitri Herron DO,FCAP Blood Urine Negative Normal Negative [facility] Comment on above: Order Comment: Speci men Type: Unknown Does the patient have one or more UTI symptoms? Y Clean Catch Reason for Study: Does the patient have one or more UTI symptoms? Y Relevant Clinical Information: Left flank pain, dizzy, vomiting Ordering Facility: [facility] Lab-CLIA#[id number] Address: [address] [place] [address] Performed By: #### U ORV[place], UAMRFLX #### [facility]-CLIA#[id number] CLIA [id number] [address] [place] [address] Dimitri Herron DO,FCAP Color (U) Dark Yellow Normal Yellow [facility] Comment on above: Order Comment: Speci men Type: Unknown Does the patient have one or more UTI symptoms? Y Clean Catch Reason for Study: Does the patient have one or more UTI symptoms? Y Relevant Clinical Information: Left flank pain, dizzy, vomiting Ordering Facility: [facility] Lab-CLIA#[id number] Address: [address] [place] [address] Performed By: #### U [place], UAMRFLX #### [facility] Lab-CLIA#[id number] CLIA [id number] [address] [place] [address] Dimitri Herron DO,FCAP Glucose Urine UA >=1000 Abnormal Negative [facility] Comment on above: Order Comment: Speci men Type: Unknown Does the patient have one or more UTI symptoms? Y Clean Catch Reason for Study: Does the patient have one or more UTI symptoms? Y Relevant Clinical Information: Left flank pain, dizzy, vomiting Ordering Facility: [facility] Lab-CLIA#[id number] Address: [address] [place] [address] Performed By: #### U [place], UAMRFLX #### [facility]-CLIA#[id number] CLIA [id number] [address] [place] [address] Dimitri Herron DO,FCAP Ketones Ql (U) Trace Abnormal Negative [facility] Comment on above: Order Comment: Speci men Type: Unknown Does the patient have one or more UTI symptoms? Y Clean Catch Reason for Study: Does the patient have one or more UTI symptoms? Y Relevant Clinical Information: Left flank pain, dizzy, vomiting Ordering Facility: [facility] Lab-CLIA#[id number] Address: [address] [place] [address] Performed By: #### U [place], UAMRFLX #### [facility]-CLIA#[id number] CLIA [id number] [address] [place] [address] Dimitri Herron DO,FCAP Leukocyte Esterase Ur Negative Normal Negative [facility] Comment on above: Order Comment: Speci men Type: Unknown Does the patient have one or more UTI symptoms? Y Clean Catch Reason for Study: Does the patient have one or more UTI symptoms? Y Relevant Clinical Information: Left flank pain, dizzy, vomiting Ordering Facility: [facility]-CLIA#[id number] Address: [address] [place] [address] Performed By: #### U [place], UAMRFLX #### [facility]-CLIA#[id number] CLIA [id number] [address] [place] [address] Dimitri Herron DO,FCAP Nitrite Urine Negative Normal Negative [facility] Comment on above: Order Comment: Speci men Type: Unknown Does the patient have one or more UTI symptoms? Y Clean Catch Reason for Study: Does the patient have one or more UTI symptoms? Y Relevant Clinical Information: Left flank pain, dizzy, vomiting Ordering Facility: [facility] Lab-CLIA#[id number] Address: [address] [place] [address] Performed By: #### U [place], UAMRFLX #### [facility]-CLIA#[id number] CLIA [id number] [address] [place] [address] Dimitri Herron DO,FCAP pH (U) 6.0 [pH] Normal <=7.5 [facility] Comment on above: Order Comment: Speci men Type: Unknown Does the patient have one or more UTI symptoms? Y Clean Catch Reason for Study: Does the patient have one or more UTI symptoms? Y Relevant Clinical Information: Left flank pain, dizzy, vomiting Ordering Facility: [facility]-CLIA#[id number] Address: [address] [place] [address] Performed By: #### U [place], UAMRFLX #### [facility]-CLIA#[id number] CLIA [id number] [address] [place] [address] Dimitri Herron DO,FCAP Protein Urine 30 Abnormal Negative [facility] Comment on above: Order Comment: Speci men Type: Unknown Does the patient have one or more UTI symptoms? Y Clean Catch Reason for Study: Does the patient have one or more UTI symptoms? Y Relevant Clinical Information: Left flank pain, dizzy, vomiting Ordering Facility: [facility] Lab-CLIA#[id number] Address: [address] [place] [address] Performed By: #### U ORVILLE, UAMRFLX #### [facility] Lab-CLIA#[id number] CLIA [id number] [address] [place] [address] Dimitri Herron DO,FCAP Specific Graham Ur 1.041 High 1.005-1.025 [facility] Comment on above: Order Comment: Speci men Type: Unknown Does the patient have one or more UTI symptoms? Y Clean Catch Reason for Study: Does the patient have one or more UTI symptoms? Y Relevant Clinical Information: Left flank pain, dizzy, vomiting Ordering Facility: [facility] Lab-CLIA#[id number] Address: [address] [place] [address] Performed By: #### U ORVIL[place], UAMRFLX #### [facility] Lab-CLIA#[id number] CLIA [id number] [address] [place] [address] Dimitri Herron DO,FCAP Urine Type Clean Catch Normal [facility] Comment on above: Order Comment: Speci men Type: Unknown Does the patient have one or more UTI symptoms? Y Clean Catch Reason for Study: Does the patient have one or more UTI symptoms? Y Relevant Clinical Information: Left flank pain, dizzy, vomiting Ordering Facility: [facility] Lab-CLIA#[id number] Address: [address] [place] [address] Performed By: #### U OR[place], UAMRFLX #### [facility] Lab-CLIA#[id number] CLIA [id number] [address] [place] [address] Dimitri Herron DO, FCAP Urobilinogen Urine 1.0 E.U./dL Normal 0-2.0 [facility] Comment on above: Order Comment: Speci men Type: Unknown Does the patient have one or more UTI symptoms? Y Clean Catch Reason for Study: Does the patient have one or more UTI symptoms? Y Relevant Clinical Information: Left flank pain, dizzy, vomiting Ordering Facility: [facility] Lab-CLIA#[id number] Address: [address] [place] [address] Performed By: #### U ORVIL[place], UAMRFLX #### [facility] Lab-CLIA#[id number] CLIA [id number] [address] [place] [address] Dimitri Herron DO, FCAP Urine Cultureon 01-06-2023 Bacteria identified Cx Nom (U) Urine Culture: No growth at 100 CFU/ml or greater Normal [facility] Comment on above: Order Comment: Speci men Type: Unknown Relevant Clinical Information: POSITIVE COLOGUARD, POOR PREP Ordering Facility: [facility] Lab-CLIA#[id number] Address: [address] [place] [address] Performed By: #### H CGQ #### [facility] Lab-CLIA#[id number] CLIA [id number] [address] [place] [address] Vincent Randaisi, DO,FCAP Urine Microscopicon 01-07-20 23 Hyaline Casts Urine 4 /LPF Normal 0-5 [facility] Comment on above: Order Comment: Speci men Type: Unknown Does the patient have one or more UTI symptoms? Y Clean Catch Reason for Study: Does the patient have one or more UTI symptoms? Y Relevant Clinical Information: Left flank pain, dizzy, vomiting Ordering Facility: [facility] Lab-CLIA#[id number] Address: [address] [place] [address] Performed By: #### U ORVIL[place], UAMRFLX #### [facility] Lab-CLIA#[id number] CLIA [id number] [address] [place] [address] Dimitri Herron DO, FCAP RBC LM.HPF (Urine sed) [#/Area] 4 /[HPF] Normal 0-5 [facility] Comment on above: Order Comment: Speci men Type: Unknown Does the patient have one or more UTI symptoms? Y Clean Catch Reason for Study: Does the patient have one or more UTI symptoms? Y Relevant Clinical Information: Left flank pain, dizzy, vomiting Ordering Facility: [facility] Lab-CLIA#[id number] Address: [address] [place] [address] Performed By: #### U ORVIL[place], UAMRFLX #### [facility] Lab-CLIA#[id number] CLIA [id number] [address] [place] [address] Dimitri Herron DOFCAP Squamous Epithelial Cell Urine >36 High 0-4 [facility] Comment on above: Order Comment: Speci men Type: Unknown Does the patient have one or more UTI symptoms? Y Clean Catch Reason for Study: Does the patient have one or more UTI symptoms? Y Relevant Clinical Information: Left flank pain, dizzy, vomiting Ordering Facility: [facility] Lab-CLIA#[id number] Address: [address] [place] [address] Performed By: #### U ORVILLE, UAMRFLX #### [facility] Lab-CLIA#[id number] CLIA [id number] [address] [place] [address] Dimitri Herron DO,FCAP Urine Bacteria Many Abnormal None [facility] Comment on above: Order Comment: Speci men Type: Unknown Does the patient have one or more UTI symptoms? Y Clean Catch Reason for Study: Does the patient have one or more UTI symptoms? Y Relevant Clinical Information: Left flank pain, dizzy, vomiting Ordering Facility: [facility] Lab-CLIA#[id number] Address: [address] [place] [address] Performed By: #### U ORVIL[place], UAMRFLX #### [facility] Lab-CLIA#[id number] CLIA [id number] [address] [place] [address] Dimitri Herron DO,FCAP WBC LM.HPF (Urine sed) [#/Area] 6 /[HPF] High 0-4 [facility] Comment on above: Order Comment: Speci men Type: Unknown Does the patient have one or more UTI symptoms? Y Clean Catch Reason for Study: Does the patient have one or more UTI symptoms? Y Relevant Clinical Information: Left flank pain, dizzy, vomiting Ordering Facility: [facility] Lab-CLIA#[id number] Address: [address] [place] [address] Performed By: #### U ORV[place], UAMRFLX #### [facility] Lab-CLIA#[id number] CLIA [id number] [address] [place] [address] Dimitri Herron DO,FCAP Urine culture routineOrdered By: Mani Silvestre on 01-06-2023 Bacteria identified Cx Nom (U) [facility] Absolute lymphocyte countOrd ered By: Mani Silvestre on 01-05-2023 Lymphocytes Auto (Unsp spec) [#/Vol] 2.10 10*3/uL 0.80-3.30 [facility] Appearance urOrdered By: Joe Silvestre on 01-05-2023 Appearance (U) Turbid Clear [facility] Automated bacteria count in urine sediment (number/area)Ordered By: Mani Silvestre on 01-05-2023 Bacteria Auto (Urine sed) [#/Area] Many None [facility] Automated erythrocytes count in urine sediment (number/area)Ordered By: Mani Silvestre on 01-05-2023 RBC Auto (Urine sed) [#/Area] 4 /HPF 0-5 [facility] Automated non-squamous epith elial cells count in urine sediment (number/area)Ordered By: Mani Silvestre on 01-05-2023 Epithelial cells.non-squamous Auto (Urine sed) [#/Area] >36 /HPF 0-4 [facility] Automated urine leukocytes c ount (number/volume)Ordered By: Mani Silvestre on 01-05-2023 WBC Auto (U) [#/Vol] 6 /HPF 0-4 [facility] Basophils Auto (Bld) [#/Vol] Ordered By: Mani Silvestre on 01-05-2023 Basophils (Bld) [#/Vol] 0.02 10*3/uL 0.00-0.10 [facility] Basophils/100 WBC Auto (Bld) Ordered By: Mani Silvestre on 01-05-2023 Basophils/100 WBC (Bld) 0.2 % 0.0-1.3 [facility] Bilirubin Auto test strip Ql (U)Ordered By: Mani Silvestre on 01-05-2023 Bilirubin Ql (U) Negative Negative [facility] Blood hemoglobin measurement (mass/volume)Ordered By: Mani Silvestre on 01-05-2023 Hemoglobin (Bld) [Mass/Vol] 16.1 g/dL 11.9-16.0 [facility] Direct bilirubin measurement Ordered By: Mani Silvestre on 01-05-2023 Bilirubin.direct [Mass/Vol] 0.2 mg/dL 0.0-0.3 [facility] Eosinophils Auto (Bld) [#/Vo l]Ordered By: Mani Silvestre on 01-05-2023 Eosinophils (Bld) [#/Vol] 0.36 10*3/uL 0.00-0.50 [facility] Eosinophils/100 WBC Auto (Bl d)Ordered By: Mani Silvestre on 01-05-2023 Eosinophils/100 WBC (Bld) 3.0 % 0.0-5.8 [facility] Erythrocyte distribution wid th Auto (RBC) [Ratio]Ordered By: Mani Silvestre on 01-05-2023 Erythrocyte distribution width (RBC) [Ratio] 15.9 % 11.6-14.8 [facility] Glomerular filtration rate ( GFR) estimation/1.73 sq m using creatinine measurement wiOrdered By: Mani Silvestre on 01-05-2023 GFR/1.73 sq M.predicted CKD-EPI (S/P/Bld) [Vol rate/Area] 59 mL/min >60 [facility] Comment on above: K/DOQI Guideline:Sta ge 1 >/=90 mL/min/1.73m2 - Not Consistent with CKDStage 2 60-89 mL/min/1.73m2 - Consistent with Mild CKDStage 3 30-59 mL/min/1.73m2 - Consistent with Moderate CKDStage 4 15-29 mL/min/1.73m2 - Consistent with Severe CKDStage 5 <15 mL/min/1.73m2 - Consistent with Kidney FailureEstimated Glomerular Filtration Rate (eGFR) is a calculated value utilizing the MDRD equation and provides an estimate of renal function. The equation assumes a steady state and should not be used for patients that meet any of the following criteria:- Are younger than 18 or older than 70- Have rapidly fluctuating kidney function- Are - Have serious comorbid conditions- Have extremes of body size- Have extremes of muscle mass - Have extremes of nutritional status- Are non- or non-- Have normal kidney function HCG ( test) IA.rapi d Ql (S)Ordered By: Mani Silvestre on 01-05-2023 HCG ( test) Ql Negative Negative [facility] Hematocrit Auto (Bld) [Volum e fraction]Ordered By: Mani Silvestre on 01-05-2023 Hematocrit (Bld) [Volume fraction] 49.5 % 35.4-47.9 [facility] Hyaline casts detection in u rine sediment by light microscopyOrdered By: Mani Silvestre on 01-05-2023 Hyaline casts LM Ql (Urine sed) 4 /LPF 0-5 [facility] Ketones Auto test strip (U) [Mass/Vol]Ordered By: Mani Silvestre on 01-05-2023 Ketones (U) [Mass/Vol] Trace Negative So [facility] - Chemistry and C hemistry - challengeOrdered By: Mani Silvestre on 01-05-2023 Anion gap [Moles/Vol] 12 mmol/L 7-17 [facility] Lymphocytes/100 WBC Auto (Bl d)Ordered By: Mani Silvestre on 01-05-2023 Lymphocytes/100 WBC (Bld) 17.7 % 13.4-45.1 [facility] MCH Auto (RBC) [Entitic mass ]Ordered By: Mani Silvestre on 01-05-2023 MCH (RBC) [Entitic mass] 28.1 pg 27.2-33.0 [facility] MCHC Auto (RBC) [Mass/Vol]Or dered By: Mani Silvestre on 01-05-2023 MCHC (RBC) [Mass/Vol] 32.5 g/dL 31.9-35.1 [facility] MCV (mean corpuscular volume ) determinationOrdered By: Mani Silvestre on 01-05-2023 MCV (RBC) [Entitic vol] 86.4 fL 82.1-97.1 [facility] Monocytes Auto (Bld) [#/Vol] Ordered By: Mani Silvestre on 01-05-2023 Monocytes (Bld) [#/Vol] 0.61 10*3/uL 0.30-0.90 [facility] Monocytes/100 WBC Auto (Bld) Ordered By: Mani Silvestre on 01-05-2023 Monocytes/100 WBC (Bld) 5.1 % 4.0-12.7 [facility] Neutrophils Auto (Bld) [#/Vo l]Ordered By: Mani Silvestre on 01-05-2023 Neutrophils (Bld) [#/Vol] 8.73 10*3/uL 1.70-7.00 [facility] Neutrophils/100 WBC Auto (Bl d)Ordered By: Mani Silvestre on 01-05-2023 Neutrophils/100 WBC (Bld) 73.6 % 41.1-75.9 [facility] No Panel InformationOrdered By: Mani Silvestre on 01-05-2023 Pharmacy Creatinine Clearance (Chem 60 [facility] Platelet mean volume Auto (B ld) [Entitic vol]Ordered By: Mani Silvestre on 01-05-2023 Platelet mean volume (Bld) [Entitic vol] 12.3 fL 8.6-12.2 [facility] Platelets Auto (Bld) [#/Vol] Ordered By: Mani Silvestre on 01-05-2023 Platelets (Bld) [#/Vol] 270 10*3/uL 133-425 [facility] Protein Auto test strip (U) [Mass/Vol]Ordered By: Mani Silvestre on 01-05-2023 Protein (U) [Mass/Vol] 30 mg/dL Negative [facility] RBC Auto (Bld) [#/Vol]Ordere d By: Mani Silvestre on 01-05-2023 RBC (Bld) [#/Vol] 5.73 10*6/uL 3.40-5.40 [facility] Serum or plasma alanine gonzalez otransferase measurement with P-5'-P (enzymatic activity/Ordered By: Mani Silvestre on 01-05-2023 ALT With P-5'-P [Catalytic activity/Vol] 22 U/L 10-49 [facility] Serum or plasma albumin lenny urement by bromocresol purple (BCP) dye binding method (mOrdered By: Mani Silvestre on 01-05-2023 Albumin BCP dye [Mass/Vol] 4.4 g/dL 3.4-5.0 [facility] Serum or plasma alkaline husam sphatase measurement (enzymatic activity/volume)Ordered By: Mani Silvestre on 01-05-2023 ALP [Catalytic activity/Vol] 122 U/L 46-116 [facility] Serum or plasma amylase lenny urement (enzymatic activity/volume)Ordered By: Mani Silvestre 01-05-2023 Amylase [Catalytic activity/Vol] 108 U/L 30-118 [facility] Serum or plasma aspartate am inotransferase measurement with P-5'-P (enzymatic activitOrdered By: Mani Silvestre 01-05-2023 AST With P-5'-P [Catalytic activity/Vol] 21 U/L 0-33 [facility] Serum or plasma calcium lenny urement (mass/volume)Ordered By: Mani Silvestre on 01-05-2023 Calcium [Mass/Vol] 9.7 mg/dL 8.3-10.6 [facility] Serum or plasma chloride cydney surement (moles/volume)Ordered By: Mani Silvestre on 01-05-2023 Chloride [Moles/Vol] 104 mmol/L 98-107 [facility] Serum or plasma creatinine m easurement (mass/volume)Ordered By: Mani Silvester on 01-05-2023 Creatinine [Mass/Vol] 1.070 mg/dL 0.55-1.02 [facility] Serum or plasma glucose lenny urement (mass/volume)Ordered By: Mani Silvestre on 01-05-2023 Glucose [Mass/Vol] 128 mg/dL 74-106 [facility] Serum or plasma lactate lenny urement (moles/volume)Ordered By: Mani Silvestre 01-05-2023 Lactate [Moles/Vol] 1.2 mmol/L 0.5-2.0 [facility] Serum or plasma lipase measu rement (enzymatic activity/volume)Ordered By: Mani Silvestre 01-05-2023 Lipase [Catalytic activity/Vol] 64 U/L 12-53 [facility] Serum or plasma potassium me asurement (moles/volume)Ordered By: Mani Silvestre 01-05-2023 Potassium [Moles/Vol] 3.9 mmol/L 3.5-5.1 [facility] Serum or plasma sodium measu rement (moles/volume)Ordered By: Mani Silvestre 01-05-2023 Sodium [Moles/Vol] 139 mmol/L 136-145 [facility] Serum or plasma total biliru bin measurement (mass/volume)Ordered By: Mani Silvestre 01-05-2023 Bilirubin [Mass/Vol] 0.6 mg/dL 0.3-1.2 [facility] Serum or plasma total carbon dioxide measurement (moles/volume)Ordered By: Mani Silvestre 01-05-2023 CO2 [Moles/Vol] 27 mmol/L 20-31 [facility] Serum or plasma urea nitroge n measurement (mass/volume)Ordered By: Mani Silvestre on 01-05-2023 Urea nitrogen [Mass/Vol] 17 mg/dL 9- [facility] Serum total protein measurem ent (mass/volume)Ordered By: Mani Silvestre on 01-05-2023 Protein [Mass/Vol] 8.2 g/dL 5.7-8.2 [facility] Urine blood detectionOrdered By: Mani Silvestre on 01-05-2023 RBC Ql (U) Negative Negative [facility] Urine colorOrdered By: Mani Silvestre on 01-05-2023 Color (U) Dark Yellow Yellow [facility] Urine culture routineOrdered By: Mani Silvestre on 01-05-2023 Bacteria identified Cx Nom (U) [facility] Urine glucose measurement by automated test strip (mass/volume)Ordered By: Mani Silvestre on 01-05-2023 Glucose Auto test strip (U) [Mass/Vol] >=1000 mg/dL Negative [facility] Urine leukocyte esterase det ection by automated test stripOrdered By: Mani Silvestre on 01-05-2023 Leukocyte esterase Auto test strip Ql (U) Negative Negative [facility] Urine nitrite detection by a utomated test stripOrdered By: Mani Silvestre on 01-05-2023 Nitrite Auto test strip Ql (U) Negative Negative [facility] Urine pHOrdered By: Mani espinoza on 01-05-2023 pH (U) 6.0 [pH] 0-7.5 [facility] Urine specific gravity measu rementOrdered By: Mani Silvestre on 01-05-2023 Specific gravity (U) [Rel density] 1.041 1.005-1.025 [facility] Urine urobilinogen measureme ntOrdered By: Mani Silvestre on 01-05-2023 Urobilinogen Ql (U) 1.0 E.U./dL 0-2.0 [facility] WBC Auto (Bld) [#/Vol]Ordere d By: Mani Silvestre on 01-05-2023 WBC (Bld) [#/Vol] 11.9 10*3/uL 4.5-11.0 [facility] Urgent Care Noteon 3 Urgent Care Note [facility] [address] [place] [address] Urgent Care Note Signed Patient: Amy Naidu MR#: [id number] : 1975 Acct: [id number] Age/Sex: 47 / F Loc: [facility]. Date of Service: 01/03/[address]: Tamara Espinosa APRN, SAUSAGE TIER cc: Chago Edwards V. DO Intake Vital Signs ([facility]) 01/03/23 19:43 Height 1.65 m Weight 100.4 kg BMI 36.8 BP 132/83 Blood Pressure Location Lt brachial Position Sitting Respiration 18 Pulse 97 H Temp 97.8 F Pulse Oximetry (%) 97 Oxygen Delivery Method Room Air Intake Visit Reasons: UTI Symptoms Is patient in acute pain: Yes (Lower back pain 5/10 on pain scale) Allergies hydromorphone [From Dilaudid] Adverse Reaction (Verified 01/03/23 19:44) Itching Medications - Last Reconciled 01/03/23 by Kadi Jhaveri LPN amlodipine 5 mg ORAL DAILY benazepril-hydrochlo rothiazide 20-25 mg 1 TABLET ORAL DAILY cholecalciferol (vitamin D3) 2,000 units ORAL DAILY clonidine HCl 0.1 mg ORAL BID diclofenac sodium ER 100 mg ORAL DAILY dulaglutide (Trulicity) 0.75 mg subcut MO empagliflozin (Jardiance) 25 mg ORAL DAILY ergocalciferol (vitamin D2) 50,000 units ORAL MO lovastatin 20 mg ORAL DAILY metformin 1,000 mg ORAL BID metoprolol tartrate 25 mg ORAL BID omeprazole 20 mg ORAL DAILY ondansetron HCl 4 mg ORAL TID PRN Is last menstrual period known: Yes Last menstrual period: 12/26/22 History History 2 Elective abortions 0 Para 2 Spontaneous abortions 0 Hx # Term Pregnancies 2 Ectopic pregnancies 0 Hx # Pregnancies 0 Multiple births 0 Specific Travel Risk - COVID-19 Travel from high risk country; contact w/ high risk person(s): No COVID-19 Symptoms: No PHQ-2/9 . Over the last 2 weeks, how often have you been bothered by any of the following problems? 1. Little interest or pleasure in doing things: not at all 2. Feeling down, depressed, or hopeless: not at all PHQ-2: Total score: 0 Depression Screening Performed-Adult (age 14 and older): Yes Depression Screening Results (Adult): negative 9. Thoughts that you would be better off or of hurting yourself in some way: not at all 0-4 None-Minimal, 5-9 Mild, 10-14 Moderate, 15-19 Moderately Severe, 20-27 Severe Source: Developed by Drs. Goran Moreno, Kaylee Tolentino, John Ambrosio and colleagues, with an educational michelle from [employer]. .. Do you need a note to return to daycare/school/sport s/work: Yes Return to daycare/school/sport s/work/other note: work Nurse's Note Nurse's Note: Patient presents with c/o left lower back pain x2 days. Home treatment of tylenol at 2pm. HPI Urgent Care HPI COVID-19 Testing ordered at today's visit? (Not Rapid/POC testing in clinic): No Patient notified of today's COVID test results/has an attempt been made to notify patient of results?: No Details: Patient presents with left low back pain. Onset of symptoms: 2 days ago per patient account. Home treatment has been Tylenol at 1400 today. Denies injury, dysuria, urinary frequency, vaginal discharge, abdominal pain. no other symptoms reported. [facility] Medical History Diabetes History of anxiety History of depression History of ovarian cyst Hypertension Surgical History H/O lithotripsy History of Family History Father Diabetes Social History Advance Directives: No Advance Directives Information Provided: No Advance Directives on File: No Smoking Status: Current every day smoker What tobacco products do you use: cigarettes Smoking packs per day: 0.5 Smoking cigarettes per day: 10.0 Years smoked: 20 Smoking pack-years: 10.00 Nicotine containing products detail: Quit smoking 3 days ago How often do you have a drink containing alcohol: never 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 Review of Systems [facility] Information given by: patient Const Denies body aches, Denies chills, Denies fatigue, Denies fever(s), Denies headache(s) and Denies weakness ENT Denies dysphagia, (more content not included)... Normal [facility] Urinalysis Routine Dipstick POCon 01-03-2023 Appearance (U) Slightly Cloudy Normal Clear [facility] Comment on above: Order Comment: Speci men Type: Unknown Relevant Clinical Information: UTI Symptoms Ordering Facility: [facility] Address: , , Performed By: #### P OCUA #### [facility] CLIA [id number] Ur Specific Graham 1.020 Normal 1.000-1.030 [facility] Comment on above: Order Comment: Speci men Type: Unknown Relevant Clinical Information: UTI Symptoms Ordering Facility: [facility] Address: , , Performed By: #### P OCUA #### [facility] CLIA [id number] Urine Bilirubin POC Negative Normal Negative [facility] Comment on above: Order Comment: Speci men Type: Unknown Relevant Clinical Information: UTI Symptoms Ordering Facility: [facility] Address: , , Performed By: #### P OCUA #### [facility] CLIA [id number] Urine Blood POC Negative Normal Negative [facility] Comment on above: Order Comment: Speci men Type: Unknown Relevant Clinical Information: UTI Symptoms Ordering Facility: [facility] Address: , , Performed By: #### P OCUA #### [facility] CLIA [id number] Urine Color POC Yellow Normal Yellow [facility] Comment on above: Order Comment: Speci men Type: Unknown Relevant Clinical Information: UTI Symptoms Ordering Facility: [facility] Address: , , Performed By: #### P OCUA #### [facility] CLIA [id number] Urine Glucose POC >=1000 Abnormal Negative [facility] Comment on above: Order Comment: Speci men Type: Unknown Relevant Clinical Information: UTI Symptoms Ordering Facility: [facility] Address: , , Performed By: #### P OCUA #### [facility] CLIA [id number] Urine Ketones POC Trace Abnormal Negative [facility] Comment on above: Order Comment: Speci men Type: Unknown Relevant Clinical Information: UTI Symptoms Ordering Facility: [facility] Address: , , Performed By: #### P OCUA #### [facility] CLIA [id number] Urine Leukocyte Esterase POC Negative Normal Negative [facility] Comment on above: Order Comment: Speci men Type: Unknown Relevant Clinical Information: UTI Symptoms Ordering Facility: [facility] Address: , , Performed By: #### P OCUA #### [facility] CLIA [id number] Urine Nitrites POC Negative Normal Negative [facility] Comment on above: Order Comment: Speci men Type: Unknown Relevant Clinical Information: UTI Symptoms Ordering Facility: [facility] Address: , , Performed By: #### P OCUA #### [facility] CLIA [id number] Urine pH POC 6.0 Normal <=7.5 [facility] Comment on above: Order Comment: Speci men Type: Unknown Relevant Clinical Information: UTI Symptoms Ordering Facility: [facility] Address: , , Performed By: #### P OCUA #### [facility] CLIA [id number] Urine Protein POC Negative Normal Negative [facility] Comment on above: Order Comment: Speci men Type: Unknown Relevant Clinical Information: UTI Symptoms Ordering Facility: [facility] Address: , , Performed By: #### P OCUA #### [facility] CLIA [id number] Urine Urobilinogen POC 1.0 E.U./dL Normal 0-1.9 [facility] Comment on above: Order Comment: Speci men Type: Unknown Relevant Clinical Information: UTI Symptoms Ordering Facility: [facility] Address: , , Performed By: #### P OCUA #### [facility] CLIA [id number] Urine Cultureon 01-03-2023 Bacteria identified Cx Nom (U) Urine Culture: No growth at 100 CFU/ml or greater Normal [facility] Comment on above: Order Comment: Speci men Type: Unknown Does the patient have one or more UTI symptoms? Y Clean Catch Reason for Study: Does the patient have one or more UTI symptoms? Y Relevant Clinical Information: Left flank pain, dizzy, vomiting Ordering Facility: [facility] Lab-CLIA#[id number] Address: [address] [place] [address] Performed By: #### U ORVILLE, [id number] #### [facility] Lab-CLIA#[id number] CLIA [id number] [address] [place] [address] Dimitri Herron DO, FCAP Urine culture routineOrdered By: Tamara Espinosa on 01-03-2023 Bacteria identified Cx Nom (U) [facility] Bacteria identified Cx Nom (U) [facility] Absolute lymphocyte countOrd ered By: Solo Sanchez on 06-02-2022 Lymphocytes Auto (Unsp spec) [#/Vol] 3.40 10*3/uL 0.80-3.30 [facility] Aerobic and anaerobic cultur e blood cultureOrdered By: Solo Sanchez on 06-02-2022 Bacteria identified Anaer+Aer cx Nom (Unsp spec) Time of report was 120 hours. [facility] Bacteria identified Anaer+Aer cx Nom (Unsp spec) Time of report was 120 hours. [facility] Appearance urOrdered By: Solo Sanchez on 06-02-2022 Appearance (U) Clear Clear [facility] Basophils Auto (Bld) [#/Vol] Ordered By: Solo Sanchez on 06-02-2022 Basophils (Bld) [#/Vol] 0.06 10*3/uL 0.00-0.10 [facility] Basophils/100 WBC Auto (Bld) Ordered By: Solo Sanchez on 06-02-2022 Basophils/100 WBC (Bld) 0.6 % 0.0-1.3 [facility] Bilirubin Auto test strip Ql (U)Ordered By: Solo Sanchez on 06-02-2022 Bilirubin Ql (U) Negative Negative [facility] Blood hemoglobin measurement (mass/volume)Ordered By: Solo Sanchez on 06-02-2022 Hemoglobin (Bld) [Mass/Vol] 13.7 g/dL 11.9-16.0 [facility] Direct bilirubin measurement Ordered By: Solo Sanchez on 06-02-2022 Bilirubin.direct [Mass/Vol] mg/dL 0.0-0.3 [facility] Eosinophils Auto (Bld) [#/Vo l]Ordered By: Solo Sanchez on 06-02-2022 Eosinophils (Bld) [#/Vol] 0.19 10*3/uL 0.00-0.50 [facility] Eosinophils/100 WBC Auto (Bl d)Ordered By: Solo Sanchez on 06-02-2022 Eosinophils/100 WBC (Bld) 1.9 % 0.0-5.8 [facility] Erythrocyte distribution wid th Auto (RBC) [Ratio]Ordered By: Solo Sanchez on 06-02-2022 Erythrocyte distribution width (RBC) [Ratio] 15.6 % 11.6-14.8 [facility] Glomerular filtration rate ( GFR) estimation/1.73 sq m using creatinine measurement wiOrdered By: Solo Sanchez on 06-02-2022 GFR/1.73 sq M.predicted CKD-EPI (S/P/Bld) [Vol rate/Area] 83 mL/min >60 [facility] Comment on above: K/DOQI Guideline:Sta ge 1 >/=90 mL/min/1.73m2 - Not Consistent with CKDStage 2 60-89 mL/min/1.73m2 - Consistent with Mild CKDStage 3 30-59 mL/min/1.73m2 - Consistent with Moderate CKDStage 4 15-29 mL/min/1.73m2 - Consistent with Severe CKDStage 5 <15 mL/min/1.73m2 - Consistent with Kidney FailureEstimated Glomerular Filtration Rate (eGFR) is a calculated value utilizing the MDRD equation and provides an estimate of renal function. The equation assumes a steady state and should not be used for patients that meet any of the following criteria:- Are younger than 18 or older than 70- Have rapidly fluctuating kidney function- Are - Have serious comorbid conditions- Have extremes of body size- Have extremes of muscle mass - Have extremes of nutritional status- Are non- or non-- Have normal kidney function HCG ( test) IA.rapi d Ql (S)Ordered By: Solo Sanchez on 06-02-2022 HCG ( test) Ql Negative Negative S [facility] Hematocrit Auto (Bld) [Volum e fraction]Ordered By: Solo Sanchez on 06-02-2022 Hematocrit (Bld) [Volume fraction] 43.0 % 35.4-47.9 [facility] Ketones Auto test strip (U) [Mass/Vol]Ordered By: Solo Sanchez on 06-02-2022 Ketones (U) [Mass/Vol] Negative Negative So [facility] Lymphocytes/100 WBC Auto (Bl d)Ordered By: Solo Sanchez on 06-02-2022 Lymphocytes/100 WBC (Bld) 34.7 % 13.4-45.1 [facility] MCH Auto (RBC) [Entitic mass ]Ordered By: Solo Sanchez on 06-02-2022 MCH (RBC) [Entitic mass] 28.0 pg 27.2-33.0 [facility] MCHC Auto (RBC) [Mass/Vol]Or dered By: Solo Sanchez on 06-02-2022 MCHC (RBC) [Mass/Vol] 31.9 g/dL 31.9-35.1 [facility] MCV (mean corpuscular volume ) determinationOrdered By: Solo Sanchez on 06-02-2022 MCV (RBC) [Entitic vol] 87.8 fL 82.1-97.1 [facility] Monocytes Auto (Bld) [#/Vol] Ordered By: Solo Sanchez on 06-02-2022 Monocytes (Bld) [#/Vol] 0.86 10*3/uL 0.30-0.90 [facility] Monocytes/100 WBC Auto (Bld) Ordered By: Solo Sanchez on 06-02-2022 Monocytes/100 WBC (Bld) 8.8 % 4.0-12.7 S [facility] Neutrophils Auto (Bld) [#/Vo l]Ordered By: Solo Sanchez on 06-02-2022 Neutrophils (Bld) [#/Vol] 5.28 10*3/uL 1.70-7.00 [facility] Neutrophils/100 WBC Auto (Bl d)Ordered By: Solo Sanchez on 06-02-2022 Neutrophils/100 WBC (Bld) 53.8 % 41.1-75.9 [facility] No Panel InformationOrdered By: Solo Sanchez on 06-02-2022 Pharmacy Creatinine Clearance (Chem 80 [facility] Platelet mean volume Auto (B ld) [Entitic vol]Ordered By: Solo Sanchez on 06-02-2022 Platelet mean volume (Bld) [Entitic vol] 12.2 fL 8.6-12.2 [facility] Platelets Auto (Bld) [#/Vol] Ordered By: Solo Sanchez on 06-02-2022 Platelets (Bld) [#/Vol] 266 10*3/uL 133-425 [facility] Protein Auto test strip (U) [Mass/Vol]Ordered By: Solo Sanchez on 06-02-2022 Protein (U) [Mass/Vol] Negative Negative So [facility] RBC Auto (Bld) [#/Vol]Ordere d By: Solo Sanchez on 06-02-2022 RBC (Bld) [#/Vol] 4.90 10*6/uL 3.40-5.40 [facility] Serum or plasma alanine gonzalez otransferase measurement with P-5'-P (enzymatic activity/Ordered By: Solo Sanchez on 06-02-2022 ALT With P-5'-P [Catalytic activity/Vol] 42 U/L 10-49 [facility] Serum or plasma albumin lenny urement by bromocresol purple (BCP) dye binding method (mOrdered By: Solo Sanchez on 06-02-2022 Albumin BCP dye [Mass/Vol] 3.8 g/dL 3.4-5.0 [facility] Serum or plasma alkaline husam sphatase measurement (enzymatic activity/volume)Ordered By: Solo Sanchez on 06-02-2022 ALP [Catalytic activity/Vol] 98 U/L 46-116 [facility] Serum or plasma aspartate am inotransferase measurement with P-5'-P (enzymatic activitOrdered By: Solo Sanchez on 06-02-2022 AST With P-5'-P [Catalytic activity/Vol] 23 U/L 0-33 [facility] Serum or plasma calcium lenny urement (mass/volume)Ordered By: Solo Sanchez on 06-02-2022 Calcium [Mass/Vol] 9.1 mg/dL 8.3-10.6 [facility] Serum or plasma cardiac trop onin I measurement (mass/volume)Ordered By: Solo Sanchez on 06-02-2022 Troponin I.cardiac [Mass/Vol] 3.48 pg/mL 0-45.19 [facility] Comment on above: Troponin-I High Sens itivity Reference Range: <45.20 Negative, repeat testing in 3 hours if clinically indicated. >=45.20 Indicative of myocardial injury. Erroneous results may be obtained with patients taking high dose biotin supplements. Serum or plasma chloride cydney surement (moles/volume)Ordered By: Solo Sanchez on 06-02-2022 Chloride [Moles/Vol] 110 mmol/L 98-107 Nat [facility] Serum or plasma creatinine m easurement (mass/volume)Ordered By: Solo Sanchez on 06-02-2022 Creatinine [Mass/Vol] 0.799 mg/dL 0.55-1.02 So [facility] Serum or plasma glucose lenny urement (mass/volume)Ordered By: Solo Sanchez on 06-02-2022 Glucose [Mass/Vol] 140 mg/dL 74-106 [facility] Serum or plasma lactate lenny urement (moles/volume)Ordered By: Solo Sanchez on 06-02-2022 Lactate [Moles/Vol] 1.5 mmol/L 0.5-2.0 [facility] Serum or plasma lipase measu rement (enzymatic activity/volume)Ordered By: Solo Sanchez on 06-02-2022 Lipase [Catalytic activity/Vol] 56 U/L 12-53 [facility] Serum or plasma potassium me asurement (moles/volume)Ordered By: Solo Sanchez on 06-02-2022 Potassium [Moles/Vol] 4.6 mmol/L 3.5-5.1 [facility] Serum or plasma sodium measu rement (moles/volume)Ordered By: Solo Sanchez on 06-02-2022 Sodium [Moles/Vol] 144 mmol/L 136-145 Jorge quinonez [facility] Serum or plasma total biliru bin measurement (mass/volume)Ordered By: Solo Sanchez on 06-02-2022 Bilirubin [Mass/Vol] 0.3 mg/dL 0.3-1.2 [facility] Serum or plasma total carbon dioxide measurement (moles/volume)Ordered By: Solo Sanchez on 06-02-2022 CO2 [Moles/Vol] 27 mmol/L 20- [facility] Serum or plasma urea nitroge n measurement (mass/volume)Ordered By: Solo Sanchez on 06-02-2022 Urea nitrogen [Mass/Vol] 9 mg/dL 9-23 [facility] Serum total protein measurem ent (mass/volume)Ordered By: Solo Sanchez on 06-02-2022 Protein [Mass/Vol] 7.3 g/dL 5.7-8.2 Jorge [facility] Urine blood detectionOrdered By: Solo Sanchez on 06-02-2022 RBC Ql (U) Negative Negative [facility] Urine colorOrdered By: Solo alvarado on 06-02-2022 Color (U) Yellow Yellow [facility] Urine glucose measurement by automated test strip (mass/volume)Ordered By: Solo Sanchez on 06-02-2022 Glucose Auto test strip (U) [Mass/Vol] >=1000 mg/dL Negative [facility] Urine leukocyte esterase det ection by automated test stripOrdered By: Solo Sanchez on 06-02-2022 Leukocyte esterase Auto test strip Ql (U) Negative Negative [facility] Urine nitrite detection by a utomated test stripOrdered By: Solo Sanchez on 06-02-2022 Nitrite Auto test strip Ql (U) Negative Negative [facility] Urine pHOrdered By: Solo sesay on 06-02-2022 pH (U) 5.5 [pH] 0-7.5 [facility] Urine specific gravity measu rementOrdered By: Solo Sanchez on 06-02-2022 Specific gravity (U) [Rel density] 1.049 1.005-1.025 [facility] Urine urobilinogen measureme ntOrdered By: Solo Sanchez on 06-02-2022 Urobilinogen Ql (U) 1.0 E.U./dL 0-2.0 [facility] WBC Auto (Bld) [#/Vol]Ordere d By: Solo Sanchez on 06-02-2022 WBC (Bld) [#/Vol] 9.8 10*3/uL 4.5-11.0 [facility] Absolute lymphocyte counton 12-18-2021 Lymphocytes Auto (Unsp spec) [#/Vol] 2.94 10*3/uL 0.80-3.30 [facility] Work Phone: Appearance uron 12-18-2021 Appearance (U) Turbid Clear [facility] Work Phone: Automated bacteria count in urine sediment (number/area)on 12-18-2021 Bacteria Auto (Urine sed) [#/Area] Many None [facility] Work Phone: Automated erythrocytes count in urine sediment (number/area)on 12-18-2021 RBC Auto (Urine sed) [#/Area] 19 /HPF 0-5 [facility] Work Phone: Automated non-squamous epith elial cells count in urine sediment (number/area)on 12-18-2021 Epithelial cells.non-squamous Auto (Urine sed) [#/Area] 5 /HPF 0-4 [facility] Work Phone: Automated urine leukocytes c ount (number/volume)on 12-18-2021 WBC Auto (U) [#/Vol] 20 /HPF 0-4 [facility] Work Phone: Basophils Auto (Bld) [#/Vol] on 12-18-2021 Basophils (Bld) [#/Vol] 0.04 10*3/uL 0.00-0.10 [facility] Work Phone: Basophils/100 WBC Auto (Bld) on 12-18-2021 Basophils/100 WBC (Bld) 0.4 % 0.0-1.3 S outhern [facility] Work Phone: Bilirubin Auto test strip Ql (U)on 12-18-2021 Bilirubin Ql (U) Small Negative [facility] Work Phone: Blood hemoglobin measurement (mass/volume)on 12-18-2021 Hemoglobin (Bld) [Mass/Vol] 12.9 g/dL 11.9-16.0 [facility] Work Phone: Calcium oxalate crystals det ection in urine sediment by light microscopyon 12-18-2021 Calcium oxalate crystals LM Ql (Urine sed) Present None [facility] Work Phone: Eosinophils Auto (Bld) [#/Vo l]on 12-18-2021 Eosinophils (Bld) [#/Vol] 0.09 10*3/uL 0.00-0.50 [facility] Work Phone: Eosinophils/100 WBC Auto (Bl d)on 12-18-2021 Eosinophils/100 WBC (Bld) 1.0 % 0.0-5.8 [facility] Work Phone: Erythrocyte distribution wid th Auto (RBC) [Ratio]on 12-18-2021 Erythrocyte distribution width (RBC) [Ratio] 15.8 % 11.6-14.8 [facility] Work Phone: Glomerular filtration rate ( GFR) estimation/1.73 sq m using creatinine measurement wion 12-18-2021 GFR/1.73 sq M.predicted CKD-EPI (S/P/Bld) [Vol rate/Area] 84 mL/min >60 [facility] Work Phone: Comment on above: K/DOQI Guideline:Sta ge 1 >/=90 mL/min/1.73m2 - Not Consistent with CKDStage 2 60-89 mL/min/1.73m2 - Consistent with Mild CKDStage 3 30-59 mL/min/1.73m2 - Consistent with Moderate CKDStage 4 15-29 mL/min/1.73m2 - Consistent with Severe CKDStage 5 <15 mL/min/1.73m2 - Consistent with Kidney FailureEstimated Glomerular Filtration Rate (eGFR) is a calculated value utilizing the MDRD equation and provides an estimate of renal function. The equation assumes a steady state and should not be used for patients that meet any of the following criteria:- Are younger than 18 or older than 70- Have rapidly fluctuating kidney function- Are - Have serious comorbid conditions- Have extremes of body size- Have extremes of muscle mass - Have extremes of nutritional status- Are non- or non-- Have normal kidney function Hematocrit Auto (Bld) [Volum e fraction]on 12-18-2021 Hematocrit (Bld) [Volume fraction] 40.5 % 35.4-47.9 [facility] Work Phone: Hyaline casts detection in u rine sediment by light microscopyon 12-18-2021 Hyaline casts LM Ql (Urine sed) 8 /LPF 0-5 [facility] Work Phone: Ketones Auto test strip (U) [Mass/Vol]on 12-18-2021 Ketones (U) [Mass/Vol] Trace Negative So [facility] Work Phone: Laboratory - Chemistry and C hemistry - challengeon 12-18-2021 Glucose [Mass/Vol] 216 mg/dL 70-110 Jorge quinonez [facility] Work Phone: Lymphocytes/100 WBC Auto (Bl d)on 12-18-2021 Lymphocytes/100 WBC (Bld) 31.6 % 13.4-45.1 [facility] Work Phone: MCH Auto (RBC) [Entitic mass ]on 12-18-2021 MCH (RBC) [Entitic mass] 26.7 pg 27.2-33.0 [facility] Work Phone: MCHC Auto (RBC) [Mass/Vol]on 12-18-2021 MCHC (RBC) [Mass/Vol] 31.9 g/dL 31.9-35.1 [facility] Work Phone: MCV (mean corpuscular volume ) determinationon 12-18-2021 MCV (RBC) [Entitic vol] 83.9 fL 82.1-97.1 S [facility] Work Phone: [phone] Monocytes Auto (Bld) [#/Vol] on 12-18-2021 Monocytes (Bld) [#/Vol] 0.58 10*3/uL 0.30-0.90 [facility] Work Phone: [phone] Monocytes/100 WBC Auto (Bld) on 12-18-2021 Monocytes/100 WBC (Bld) 6.2 % 4.0-12.7 S [facility] Work Phone: Neutrophils Auto (Bld) [#/Vo l]on 12-18-2021 Neutrophils (Bld) [#/Vol] 5.63 10*3/uL 1.70-7.00 [facility] Work Phone: Neutrophils/100 WBC Auto (Bl d)on 12-18-2021 Neutrophils/100 WBC (Bld) 60.5 % 41.1-75.9 [facility] Work Phone: No Panel Informationon 12-18 Pharmacy Creatinine Clearance (Chem 82 [facility] Work Phone: Platelet mean volume Auto (B ld) [Entitic vol]on 12-18-2021 Platelet mean volume (Bld) [Entitic vol] 12.7 fL 8.6-12.2 [facility] Work Phone: [phone] Platelets Auto (Bld) [#/Vol] on 12-18-2021 Platelets (Bld) [#/Vol] 288 10*3/uL 133-425 [facility] Work Phone: Protein Auto test strip (U) [Mass/Vol]on 12-18-2021 Protein (U) [Mass/Vol] 100 mg/dL Negative So [facility] Work Phone: RBC Auto (Bld) [#/Vol]on RBC (Bld) [#/Vol] 4.83 10*6/uL 3.40-5.40 [facility] Work Phone: SARS-CoV-2 (COVID-19) RNA [P resence] in Nasopharynx by TK with probe detectionon 12-18-2021 SARS-CoV-2 (COVID-19) RNA TK+probe Ql (Nph) Not detected Not Detect [facility] Work Phone: Comment on above: Method: Real-time Re verse Transcriptase polymerase chain reaction(RT-PCR)The sensitivity of the assay is dependent on the quality of the specimen collected for testing. The test is specific for severe acute respiratory syndrome coronavirus 2 (SARS-CoV-2), and positive test results do not exclude the possibility of concurrent infection with other respiratory viruses. Negative results do not preclude infection with SARS-CoV-2 and should not be used as the sole basis for decisions on treatment or other patient care management.This test has been authorized by FDA under an Emergency Use Authorization (EUA). This test is only authorized for the duration of time the declaration that circumstances exist justifying the authorization of the emergency use of in vitro diagnostic tests for detection of SARS-CoV-2 virus and/or diagnosis of COVID-19 infection under section 564(b)(1) of the Act, 21 U.S.C. 360bbb-3(b)(1), unless the authorization is terminated or revoked sooner. SARS-CoV-2 (COVID-19) RdRp g viktor [Presence] in Respiratory specimen by TK with probeon 12-18-2021 SARS-CoV-2 (COVID-19) RdRp gene TK+probe Ql (Resp) Negative Negative [facility] Work Phone: Comment on above: The sensitivity of t he assay is dependent on the quality of the specimen collected for testing. The assay is performed on the [employer] instrument utilizing isothermal nucleic acid amplification technology. Results are for the identification of severe acute respiratory syndrome coronavirus 2 nucleic acid, SARS-CoV-2 RNA, which is generally detectable in respiratory samples during the acute phase of infection. Positive results are indicative of the presence of SARS-CoV-2 RNA; clinical correlation with patient history and other diagnostic information is necessary to determine patient infection status. Positive results do not exclude the possibility of co-infection with other viral or bacterial infections. Negative results should be treated as presumptive and, if inconsistent with clinical signs and symptoms or necessary for patient management, should be tested with different molecular tests. This test has been authorized by FDA under an Emergency Use Authorization (EUA). Serum or plasma calcium lenny urement (mass/volume)on 12-18-2021 Calcium [Mass/Vol] 8.2 mg/dL 8.3-10.6 Jorge [facility] Work Phone: Serum or plasma cardiac trop onin I measurement (mass/volume)on 12-18-2021 Troponin I.cardiac [Mass/Vol] 6.72 pg/mL 0-45.20 [facility] Work Phone: Comment on above: Troponin-I High Sens itivity Reference Range: <45.20 Negative, repeat testing in 3 hours if clinically indicated. >=45.20 Indicative of myocardial injury. Erroneous results may be obtained with patients taking high dose biotin supplements. Serum or plasma chloride cydney surement (moles/volume)on 12-18-2021 Chloride [Moles/Vol] 107 mmol/L 98-107 [facility] Work Phone: Serum or plasma creatinine m easurement (mass/volume)on 12-18-2021 Creatinine [Mass/Vol] 0.792 mg/dL 0.55-1.02 So [facility] Work Phone: Serum or plasma glucose lenny urement (mass/volume)on 12-18-2021 Glucose [Mass/Vol] 249 mg/dL 74-106 Jorge [facility] Work Phone: Serum or plasma potassium me asurement (moles/volume)on 12-18-2021 Potassium [Moles/Vol] 4.4 mmol/L 3.5-5.1 [facility] Work Phone: Serum or plasma sodium measu rement (moles/volume)on 12-18-2021 Sodium [Moles/Vol] 138 mmol/L 136-145 Jorge cristiano [facility] Work Phone: Serum or plasma total carbon dioxide measurement (moles/volume)on 12-18-2021 CO2 [Moles/Vol] 24 mmol/L 20- [facility] Work Phone: Serum or plasma urea nitroge n measurement (mass/volume)on 12-18-2021 Urea nitrogen [Mass/Vol] 8 mg/dL 9- [facility] Work Phone: Urine blood detectionon 12-02 RBC Ql (U) Negative Negative [facility] Work Phone: Urine coloron 12-18-2021 Color (U) Dark Yellow Yellow [facility] Work Phone: Urine glucose measurement by automated test strip (mass/volume)on 12-18-2021 Glucose Auto test strip (U) [Mass/Vol] >=1000 mg/dL Negative [facility] Work Phone: Urine leukocyte esterase det ection by automated test stripon 12-18-2021 Leukocyte esterase Auto test strip Ql (U) Negative Negative [facility] Work Phone: Urine nitrite detection by a utomated test stripon 12-18-2021 Nitrite Auto test strip Ql (U) Negative Negative [facility] Work Phone: Urine pHon 12-18-2021 pH (U) 6.5 [pH] 0-7.5 [facility] Work Phone: Urine specific gravity measu rementon 12-18-2021 Specific gravity (U) [Rel density] 1.038 1.005-1.025 [facility] Work Phone: Urine urobilinogen measureme nton 12-18-2021 Urobilinogen Ql (U) 2.0 E.U./dL 0-2.0 [facility] Work Phone: WBC Auto (Bld) [#/Vol]on WBC (Bld) [#/Vol] 9.3 10*3/uL 4.5-11.0 Jorge quinonez [facility] Work Phone: BASIC METABOLIC PANELon 11-01 Anion gap [Moles/Vol] 7 mmol/L Normal [facility] Comment on above: Performed By: #### L [id number] #### [facility] [address] [place] [address] B/C 22 High 10-20 [facility] Comment on above: Performed By: #### L [id number] #### [facility] [address] [place] [address] Calcium [Mass/Vol] 8.6 mg/dL Normal 8.5-10.5 [facility] Comment on above: Performed By: #### L [id number] #### [facility] [address] [place] [address] Chloride [Moles/Vol] 104 mmol/L Normal 101-111 [facility] Comment on above: Performed By: #### L [id number] #### [facility] [address] [place] [address] CO2 [Moles/Vol] 30 mmol/L Normal 21-31 [facility] Comment on above: Performed By: #### L [id number] #### [facility] [address] [place] [address] Creatinine [Mass/Vol] 0.6 mg/dL Normal 0.4-1.0 [facility] Comment on above: Performed By: #### L [id number] #### [facility] [address] [place] [address] GFR/1.73 sq M.predicted MDRD (S/P/Bld) [Vol rate/Area] mL/min/{1.73_m2} Normal [facility] Comment on above: Result Comment: *The estimated Glomerular Filtration Rate(EGFR) may not be accurate for children under the age of 18 yrs. To estimate the GFR for -Americans multiply the result provided by 1.21. Stage 1 90 mL/min or greater Stage 2 60-89 mL/min Stage 3 30-59 mL/min Stage 4 15-29 mL/min Stage 5 14 mL/min or less Performed By: #### L [id number] #### [facility] [address] [place] [address] Glucose [Mass/Vol] 109 mg/dL Normal 70-110 [facility] Comment on above: Performed By: #### L [id number] #### [place] [address] Osmolality [Osmolality] 282 mosm/kg Normal 266-309 [facility] Comment on above: Performed By: #### L [id number] #### [address] [address] Potassium [Moles/Vol] 3.8 mmol/L Normal 3.6-5.0 [facility] Comment on above: Performed By: #### L [id number] #### [place] [address] Sodium [Moles/Vol] 141 mmol/L Normal 135-145 [facility] Comment on above: Performed By: #### L [id number] #### [place] [address] Urea nitrogen [Mass/Vol] 13 mg/dL Normal 6-20 [facility] Comment on above: Performed By: #### L [id number] #### [place] [id number] Syphilis Ab, Total, Son 03-0 Syphilis Ab, Total, S Non-Reactive Normal Non-Reactive [facility] Comment on above: Performed By: #### L [id number], [id number], [id number], [id number], [id number], [id number] #### [address] [address] CBCon 05-29-2020 Basophil Abs. 0.1 10*3/uL Normal 0.0-0.1 [facility] Comment on above: Performed By: #### L [id number], [id number], [id number], [id number], [id number], [id number] #### [facility] [address] [place] [address] Basophils/100 WBC (Bld) 0.3 % Normal 0.0-1.0 K [facility] Comment on above: Performed By: #### L [id number], [id number], [id number], [id number], QDO4663, PZS8919 #### [place] [address] Differential type Auto Normal [facility] Comment on above: Performed By: #### L HS4217, WFP0231, TDS2232, FPN5237, YOH9814, VCD9281 #### [place] [address] Eosinophils (Bld) [#/Vol] 0.0 10*3/uL Normal 0.0-0.5 [facility] Comment on above: Performed By: #### L DB9981, GNW4790, SDK7845, FSJ4819, ROO0764, WPA1228 #### [place] [address] Eosinophils/100 WBC (Bld) 0.0 % Low 0.3-5.0 [facility] Comment on above: Performed By: #### L HT1891, JSE5904, DRT9194, KKE4398, KMM6982, GRS0879 #### [place] [address] Erythrocyte distribution width (RBC) [Ratio] 16.3 % High 11.5-13.1 [facility] Comment on above: Performed By: #### L XZ5794, YWL5199, YTD1017, PHN0027, RWQ9767, EDN7142 #### [place] [address] Hematocrit (Bld) [Volume fraction] 36.4 % Normal 33.0-51.0 [facility] Comment on above: Performed By: #### L FA6970, QEA1620, CTQ5692, PKV3517, JYD3901, NOY8114 #### [address] [place] [address] Hemoglobin (Bld) [Mass/Vol] 11.4 g/dL Low 12.0-16.0 [facility] Comment on above: Performed By: #### L TE9669, HPQ7037, SPK0137, VOL9492, DNN5885, FBA1652 #### [place] [address] Lymphocytes (Bld) [#/Vol] 3.3 10*3/uL Normal 1.1-5.0 [facility] Comment on above: Performed By: #### L GC2594, CPP9986, OWB0590, QSM7688, MIW4739, FXS6336 #### [place] [address] Lymphocytes/100 WBC (Bld) 19.3 % Low 24.0-44.0 [facility] Comment on above: Performed By: #### L HI1682, YYH3984, FXF6636, ZXP5815, DLD4667, KJI1536 #### [place] [address] MCH (RBC) [Entitic mass] 27.1 pg Normal 26.0-34.0 [facility] Comment on above: Performed By: #### L WZ6685, SNX3364, DYG6404, NNY2466, HGY2580, QSI9303 #### [place] [address] MCHC (RBC) [Mass/Vol] 31.5 g/dL Low 32.0-36.0 [facility] Comment on above: Performed By: #### L YI2106, HDP1900, NCZ5171, LJS8311, SUY5718, WLC6265 #### [place] [address] MCV (RBC) [Entitic vol] 86.1 fL Normal 80.0-100.0 [facility] Comment on above: Performed By: #### L MJ9899, NZI6308, PDQ6376, IMQ8560, CYS9497, QTS2075 #### [facility] [place] [facility] [address] [place] [address] Monocytes (Bld) [#/Vol] 1.0 10*3/uL Normal 0.0-1.4 [facility] Comment on above: Performed By: #### L JH4889, XEB5991, XCP1123, DMB6421, FWU6345, FEZ8510 #### [place] [address] Monocytes/100 WBC (Bld) 5.7 % Normal 2.1-13.3 [facility] Comment on above: Performed By: #### L IM7728, FXP0096, MYM6667, XUL5702, ANS0578, ULY1866 #### [place] [address] Neutrophils, Abs. 12.8 10*3/uL High 1.5-8.5 [facility] Comment on above: Performed By: #### L OP5967, BGD1700, MYY7431, ODK7945, HOW1237, GOX0207 #### [place] [address] Neutrophils/100 WBC (Bld) 74.7 % High 35.0-66.0 [facility] Comment on above: Performed By: #### L CF8603, RUT0570, KOY7159, CDA4932, BBQ9307, WSM8031 #### [place] [address] Platelet Cnt 285 10*3/uL Normal 150-450 [facility] Comment on above: Performed By: #### L LP1335, YJE6386, SLF1597, EKR0818, CRQ8804, EEH5197 #### [place] [address] Platelet mean volume (Bld) [Entitic vol] 10.3 fL High 6.5-10.0 [facility] Comment on above: Performed By: #### L HA4161, LVY1295, XHC6051, HBH9934, ZQM2480, RXD1194 #### [place] [address] RBC (Bld) [#/Vol] 4.23 10*6/uL Normal 4.00-5.20 [facility] Comment on above: Performed By: #### L WZ8783, EDQ1554, VOK1421, VAM5280, GCM1761, QDG7776 #### [place] [address] WBC (Bld) [#/Vol] 17.1 10*3/uL High 4.5-11.0 [facility] Comment on above: Performed By: #### L OJ9046, IEK8162, ZJB7923, XRD1636, FWJ6256, PLU4045 #### [place] [address] COMPREHENSIVE METABOLIC PANE Todd 05-29-2020 Albumin [Mass/Vol] 4.1 g/dL Normal 3.2-5.0 [facility] Comment on above: Performed By: #### L CJ4948, PYP0859, OAI8258, CJY7583, AWV1163, JAT2962 #### [place] [address] Albumin/Globulin [Mass ratio] 1.3 {ratio} Normal [facility] Comment on above: Performed By: #### L MA8809, ECJ1550, BCB7956, TWC6737, UKH7749, TGB4089 #### [place] [address] ALP [Catalytic activity/Vol] 69 U/L Normal 42-121 [facility] Comment on above: Performed By: #### L MX5796, MAK0340, JVS2631, KGA5031, WFX5772, EFE1448 #### [place] [address] ALT [Catalytic activity/Vol] 26 U/L Normal 10-60 [facility] Comment on above: Performed By: #### L NE8729, AYH0768, QUI4491, TSG0107, BWW2213, WRE9466 #### [place] [address] Anion gap [Moles/Vol] 10 mmol/L Normal [facility] Comment on above: Performed By: #### L AX7957, VBN0519, EZQ7955, XCU8398, LLE5204, GFO9701 #### [place] [address] AST [Catalytic activity/Vol] 23 U/L Normal 10-42 [facility] Comment on above: Performed By: #### L WO8743, IVK3447, AMG3487, LPA2251, XEB4873, DCZ8599 #### [place] [address] B/C 21 High 10-20 [facility] Comment on above: Performed By: #### L PV4450, EPH5416, AWB9459, OTD7598, BVA9510, UFX4500 #### [place] [address] Bilirubin.direct [Mass/Vol] 0.3 mg/dL Normal 0.2-1.0 [facility] Comment on above: Performed By: #### L IT0782, ROR8534, BCR8871, AXB9098, MTV8700, UCH3719 #### [place] [address] Calcium [Mass/Vol] 8.9 mg/dL Normal 8.5-10.5 [facility] Comment on above: Performed By: #### L CD7561, RCI0780, NYY9323, MFR7198, FMP0762, AEG8235 #### [place] [address] Chloride [Moles/Vol] 105 mmol/L Normal 101-111 [facility] Comment on above: Performed By: #### L TA4541, WFF2323, CRD8766, SGC9321, TRE6326, RDG1459 #### [place] [address] CO2 [Moles/Vol] 27 mmol/L Normal 21-31 [facility] Comment on above: Performed By: #### L WM9457, PNJ4360, RDW0232, UIA8793, OUC5819, CIU2004 #### [facility] [address] [place] [address] Creatinine [Mass/Vol] 0.7 mg/dL Normal 0.4-1.0 [facility] Comment on above: Performed By: #### L IU1878, CRE8955, BQI0781, TQP7341, VDA5561, DXZ1519 #### [facility] [address] [place] [address] GFR/1.73 sq M.predicted MDRD (S/P/Bld) [Vol rate/Area] mL/min/{1.73_m2} Normal [facility] Comment on above: Result Comment: *The estimated Glomerular Filtration Rate(EGFR) may not be accurate for children under the age of 18 yrs. To estimate the GFR for -Americans multiply the result provided by 1.21. Stage 1 90 mL/min or greater Stage 2 60-89 mL/min Stage 3 30-59 mL/min Stage 4 15-29 mL/min Stage 5 14 mL/min or less Performed By: #### L FQ7711, VKY5781, EUF0042, MZG5610, SMI6877, OMG1193 #### [place] [address] Glucose [Mass/Vol] 112 mg/dL High 70-110 [facility] Comment on above: Performed By: #### L UK9136, TTK6078, MLI0117, HEZ0136, MRL4388, HZO0268 #### [place] [address] Osmolality [Osmolality] 285 mosm/kg Normal 266-309 [facility] Comment on above: Performed By: #### L NH7912, IIL4439, BLK1084, JSC1059, REG3438, FMU6856 #### [place] [address] [place] [id number] Potassium [Moles/Vol] 4.7 mmol/L Normal 3.6-5.0 [facility] Comment on above: Performed By: #### L WY7718, LCX3078, KSK1245, DEF1027, HCT1128, ABT1392 #### [place] [address] Protein [Mass/Vol] 7.2 g/dL Normal 6.7-8.2 [facility] Comment on above: Performed By: #### L LK1431, VYT6553, GUN8529, JYJ2684, ZEZ6373, FDY4485 #### [place] [address] Sodium [Moles/Vol] 142 mmol/L Normal 135-145 [facility] Comment on above: Performed By: #### L JZ7274, EUX1590, MPD4197, RGX7476, HPS4294, MAL2378 #### [place] [address] Urea nitrogen [Mass/Vol] 15 mg/dL Normal 6-20 [facility] Comment on above: Performed By: #### L TZ6811, IXR4210, GDL4559, PLX3702, XRD1769, GZK4147 #### [place] [address] HEPATITIS PANEL ACUTEon 02-2 HEPATITIS C AB Negative Normal Negative [facility] Comment on above: Performed By: #### L HU3026, ESL0435, CAG8171, HLJ4120, HTA3358, QOW2330 #### [place] [address] HEP B CORE AB IGM Negative Normal Negative [facility] Comment on above: Performed By: #### L UF4032, XFN2003, SVM1504, BHP8567, AEV2150, GQO0059 #### [place] [address] HEPATITIS A AB IGM Negative Normal Negative [facility] Comment on above: Performed By: #### L UK1804, KMU1641, HQZ2376, ZQU3059, NYD4340, PJB1982 #### [place] [address] HEP B SURFACE AG Negative Normal Negative [facility] Comment on above: Performed By: #### L XY6108, PVF4189, GIF5439, AXV2579, TYK0981, HXG9582 #### [place] [address] HIV 1, 2 AB SCRNon 1 HIV 1, 2 AB SCRN Negative Normal Negative [facility] Comment on above: Performed By: #### L CD2708, EBJ6579, NFV1461, RKI6929, QLA6188, WEN2688 #### [place] [address] LIPID PANELon 05-29-2020 Cholesterol [Mass/Vol] 221 mg/dL High 10-200 [facility] Comment on above: Performed By: #### L WB3604, SEO8596, SXM4001, LUC9641, IZQ5981, YTS9735 #### [place] [address] Cholesterol in HDL [Mass/Vol] 60.0 mg/dL Normal 29.0-89.0 [facility] Comment on above: Performed By: #### L UW4950, DZM7497, ELJ8112, VCV7155, TQJ7132, MBJ7392 #### [place] [address] Cholesterol in LDL [Mass/Vol] 141.8 mg/dL Normal [facility] Comment on above: Result Comment: CAP STANDARDIZED LDL-CHOLESTEROL VALUES <130-DESIRABLE 130-159 BORDERLINE/HIGH RISK >160-HIGH RISK Performed By: #### L WL8960, UUF3730, TCB9520, NCS6445, VPV1897, IUD7633 #### [place] [address] Cholesterol in VLDL [Mass/Vol] 19.2 mg/dL Normal [facility] Comment on above: Performed By: #### L GF7981, MJT2668, NGC3614, SQV7930, FPQ9344, WZK5942 #### [facility] [address] [place] [address] RISK 1, FEMALE 3.68 Normal [facility] Comment on above: Result Comment: TOTA L CHOL/HDL 1/2 AVERAGE 3.27 AVERAGE 4.44 2 X AVERAGE 7.05 3 X AVERAGE 11.04 Performed By: #### L OT1156, PVR3225, LKX8322, JHM8960, JJN2328, APV5352 #### [place] [address] RISK 1, MALE 3.68 Normal [facility] Comment on above: Result Comment: TOTA L CHOL/HDL 1/2 AVERAGE 3.43 AVERAGE 4.97 2 X AVERAGE 9.55 3 X AVERAGE 23.39 Performed By: #### L EK5471, CHM2940, ZOM4629, MFT9506, UMP1219, QKX1362 #### [place] [address] RISK 2, FEMALE 2.36 Normal [facility] Comment on above: Result Comment: LDL/ HDL 1/2 AVERAGE 1.47 AVERAGE 3.22 2 X AVERAGE 5.03 3 X AVERAGE 6.14 Performed By: #### L NW2542, YDI1483, BMJ5678, QSL6851, UCJ1996, SRY1385 #### [place] [address] RISK 2, MALE 2.36 [facility] Comment on above: Result Comment: LDL/ HDL 1/2 AVERAGE 1.00 AVERAGE 3.55 2 X AVERAGE 6.25 3 X AVERAGE 7.99 Performed By: #### L HE6877, QZA6274, HST1275, QEY0028, CCT8004, RSR2898 #### [place] [address] Triglyceride [Mass/Vol] 96 mg/dL Normal 46-236 [facility] Comment on above: Performed By: #### L RM5003, WET9775, CHP8341, RQM9795, GTX0823, OLE2827 #### [place] [address] TEST, SERUMon 02- TEST, SERUM Negative Normal NEGATIVE [facility] Comment on above: Performed By: #### L SZ8553 #### [address] [place] [address] URINALYSISon 05-29-2020 UR BACTERIA None Seen Normal NONE SEEN [facility] Comment on above: Performed By: #### L TC3583 #### [facility] [address] [place] [address] UR BILIRUBIN Negative Normal NEGATIVE [facility] Comment on above: Performed By: #### L QN2021 #### [facility] [address] [place] [address] UR BLOOD Negative Normal NEGATIVE [facility] Comment on above: Performed By: #### L XS3333 #### [facility] [address] [place] [address] UR CLARITY Clear Normal CLEAR [facility] Comment on above: Performed By: #### L VC4289 #### [facility] [address] [place] [address] UR COLOR Light-Yellow Normal YELLOW [facility] Comment on above: Performed By: #### L IH3625 #### [facility] [address] [place] [address] UR GLUCOSE Normal Normal NEGATIVE [facility] Comment on above: Performed By: #### L GT5536 #### [facility] [address] [place] [address] UR HYALINE CAST 1 - 3 Normal NONE SEEN [facility] Comment on above: Performed By: #### L SA6538 #### [facility] [address] [place] [address] UR KETONE Negative Normal NEGATIVE [facility] Comment on above: Performed By: #### L YE8216 #### [facility] [address] [place] [address] UR LEUKOCYTE Negative Normal NEGATIVE [facility] Comment on above: Performed By: #### L MM8634 #### [facility] [address] [place] [address] UR MUCOUS Rare Normal NONE SEEN [facility] Comment on above: Performed By: #### L PF9228 #### [facility] [address] [place] [address] UR NITRITE Negative Normal NEGATIVE [facility] Comment on above: Performed By: #### L OT4106 #### [facility] [place] [facility] [address] [place] [address] UR NON-SQUAMOUS EPI < 1 Normal NONE SEEN [facility] Comment on above: Performed By: #### L FZ0117 #### [facility] [address] [place] [address] UR PH 6.0 Normal 5.0-9.0 [facility] Comment on above: Performed By: #### L JR9931 #### [facility] [address] [place] [address] UR PROTEIN Negative Normal NEGATIVE [facility] Comment on above: Performed By: #### L UZ2536 #### [facility] [address] [place] [address] UR RBC 1 - 3 Normal 1-3 [facility] Comment on above: Performed By: #### L VB1718 #### [facility] [address] [place] [address] UR SP GRAVITY 1.023 Normal 1.005-1.030 [facility] Comment on above: Performed By: #### L YQ9623 #### [facility] [address] [place] [address] UR SQUAMOUS EPI 11 - 20 Abnormal 3-5 [facility] Comment on above: Performed By: #### L AK1640 #### [facility] [address] [place] [address] UR UROBILINOGEN Normal Normal <2.0 [facility] Comment on above: Performed By: #### L VM2937 #### [facility] [address] [place] [address] UR WBC 4 - 5 Normal 1-3 [facility] Comment on above: Performed By: #### L ZZ8300 #### [place] [address] FINGER LT MINIMUM 2 VIEWSon 06-24-2019 FINGER LT MINIMUM 2 VIEWS LEFT LITTLE FINGER COMPARISON: No comparison exams available at the time of dictation. FINDINGS: OSSEOUS STRUCTURES: There is no evidence of an acute osseous fracture. JOINTS: Erosive changes involving the distal interphalangeal joint of the little finger. Findings could be related to advanced erosive arthritis although septic joint should be considered. SOFT TISSUES: No radiographic evidence of soft tissue swelling. No radiopaque foreign body. HARDWARE: None. RECOMMENDATIONS: If the patient has persistent pain, a follow-up radiographic evaluation in 10-14 days, MRI, or three phase bone scan would be recommended to exclude an occult fracture. IMPRESSION: 1. Erosive changes involving the distal interphalangeal joint of the little finger. Findings could be related to advancedANDnbsp;eros jose arthritis althoughANDnbsp;sept ic joint should be considered. Report electronically signed by: aRmon Liang MD on Jun 23, 01:23 PM Final Report Normal [facility] Urine Cultureon 09-12-2018 Bacteria identified Cx Nom (U) No growth at 100 CFU/ml or greater Normal [facility] Comment on above: Performed By: #### U RC #### [facility] Services Dr. Dimitri Herron MD [address] [place] [address] Basic Metabolic Panelon 09-01 Creatinine [Mass/Vol] 0.888 mg/dL Normal 0.550-1.020 [facility] Comment on above: Performed By: #### B MP #### [facility] Dr. Dimitri Herron MD [address] [place] [address] GFR/1.73 sq M predicted among non-blacks MDRD (S/P/Bld) [Vol rate/Area] 74 mL/min/{1.73_m2} Normal [facility] Comment on above: Result Comment: K/DO QI Guideline: Stage 1 >/=90 mL/min/1.73m2 - Not Consistent with CKD Stage 2 60-89 mL/min/1.73m2 - Consistent with Mild CKD Stage 3 30-59 mL/min/1.73m2 - Consistent with Moderate CKD Stage 4 15-29 mL/min/1.73m2 - Consistent with Severe CKD Stage 5 <15 mL/min/1.73m2 - Consistent with Kidney Failure Estimated Glomerular Filtration Rate (eGFR) is a calculated value utilizing the MDRD equation and provides an estimate of renal function. The equation assumes a steady state and should not be used for patients that meet any of the following criteria: - Are younger than 18 or older than 70 - Have rapidly fluctuating kidney function - Are - Have serious comorbid conditions - Have extremes of body size - Have extremes of muscle mass - Have extremes of nutritional status - Are non- or non- - Have normal kidney function Performed By: #### B MP #### [facility] Dr. Dimitri Herron MD [address] [place] [address] Calcium [Mass/Vol] 7.9 mg/dL Low 8.5-10.1 [facility] Comment on above: Performed By: #### B MP #### [facility] Dr. Dimitri Herron MD [address] [place] [address] 28063 CO2 [Moles/Vol] 28.0 mmol/L Normal 21.0-32.0 [facility] Comment on above: Performed By: #### B MP #### [facility] Dr. Dimitri Herron MD [address] [place] [address]1565 Glucose [Mass/Vol] 132 mg/dL High 74-106 [facility] Comment on above: Performed By: #### B MP #### [facility] Dr. Dimitri Herron MD [address] [place] [address] 22048 Urea nitrogen [Mass/Vol] 9 mg/dL Normal 7-18 [facility] Comment on above: Performed By: #### B MP #### [facility] Dr. Dimitri Herron MD [address] [place] [address] 50332 Chloride [Moles/Vol] 105 mmol/L Normal 100-108 [facility] Comment on above: Performed By: #### B MP #### [facility] Dr. Dimitri Herron MD [address] [place] [address] 12300 Potassium [Moles/Vol] 3.2 mmol/L Low 3.5-5.1 [facility] Comment on above: Performed By: #### B MP #### [facility] Dr. Dimitri Herron MD [address] [place] [address] 92441 Sodium [Moles/Vol] 139 mmol/L Normal 136-145 [facility] Comment on above: Performed By: #### B MP #### [facility] Dr. Dimitri Herron MD [address] [place] [address] 77240 CBC With Platelet and Differ entialon 09-11-2018 Abs. Basophils 0.05 10*3/uL Normal 0.00-0.10 [facility] Comment on above: Performed By: #### C BC #### [facility] Dr. Dimitri Herron MD [address] [place] [address] 64000 Abs. Neutrophils 5.14 10*3/uL Normal 1.70-7.00 [facility] Comment on above: Performed By: #### C BC #### [facility] Dr. Dimitri Herron MD [address] [place] [address] 00290 Basophils/100 WBC (Bld) 0.6 % Normal 0.0-1.3 [facility] Comment on above: Performed By: #### C BC #### [facility] Dr. Dimitri Herron MD [address] [place] [address] 84220 Differential Automated Normal [facility] Comment on above: Performed By: #### C BC #### [facility] Dr. Dimitri Herron MD [address] [place] [address] 48040 Eosinophils (Bld) [#/Vol] 0.15 10*3/uL Normal 0.00-0.50 [facility] Comment on above: Performed By: #### C BC #### [facility] Dr. Dimitri Herron MD [address] [place] [address] 20830 Eosinophils/100 WBC (Bld) 1.8 % Normal 0.0-5.8 [facility] Comment on above: Performed By: #### C BC #### [facility] Laboratory Services Dr. Dimitri Herron MD [address] [place] [address] 12132 Erythrocyte distribution width (RBC) [Ratio] 15.3 % High 11.6-14.8 [facility] Comment on above: Performed By: #### C BC #### [facility] Laboratory Services Dr. Dimitri Herron MD [address] [place] [address] 63281 Hematocrit (Bld) [Volume fraction] 41.6 % Normal 35.4-47.9 [facility] Comment on above: Performed By: #### C BC #### [facility] Laboratory Services Dr. Dimitri Herron MD [address] [place] [address] 04536 Hemoglobin (Bld) [Mass/Vol] 13.3 g/dL Normal 11.9-16.0 [facility] Comment on above: Performed By: #### C BC #### [facility] Laboratory Services Dr. Dimitri Herron MD [address] [place] [address] 37290 Lymphocytes (Bld) [#/Vol] 2.52 10*3/uL Normal 0.80-3.30 [facility] Comment on above: Performed By: #### C BC #### [facility] Laboratory Services Dr. Dimitri Herron MD [address] [place] [address] 39830 Lymphocytes/100 WBC (Bld) 29.5 % Normal 13.4-45.1 [facility] Comment on above: Performed By: #### C BC #### [facility] Laboratory Services Dr. Dimitri Herron MD [address] [place] [address] 99366 MCH (RBC) [Entitic mass] 27.5 pg Normal 27.2-33.0 [facility] Comment on above: Performed By: #### C BC #### [facility] Dr. Dimitri Herron MD [facility] [address] [place] [address] 25599 MCHC (RBC) [Mass/Vol] 32.0 g/dL Normal 31.9-35.1 [facility] Comment on above: Performed By: #### C BC #### [facility] Dr. Dimitri Herron MD [address] [place] [address] 09084 MCV (RBC) [Entitic vol] 86.0 fL Normal 82.1-97.1 [facility] Comment on above: Performed By: #### C BC #### [facility] Dr. Dimitri Herron MD [address] [place] [address] 36114 Monocytes (Bld) [#/Vol] 0.67 10*3/uL Normal 0.30-0.90 [facility] Comment on above: Performed By: #### C BC #### [facility] Dr. Dimitri Herron MD [address] [place] [address] 12415 Monocytes/100 WBC (Bld) 7.8 % Normal 4.0-12.7 [facility] Comment on above: Performed By: #### C BC #### [facility] Dr. Dimitri Herron MD [address] [place] [address] 13179 Neutrophils/100 WBC (Bld) 60.1 % Normal 41.1-75.9 [facility] Comment on above: Performed By: #### C BC #### [facility] Dr. Dimitri Herron MD [address] [place] [address] 29891 Platelet mean volume (Bld) [Entitic vol] 11.4 fL Normal 8.6-12.2 [facility] Comment on above: Performed By: #### C BC #### [facility] Dr. Dimitri Herron MD [address] [place] [address] 33615 Platelets (Bld) [#/Vol] 282 10*3/uL Normal 133-425 [facility] Comment on above: Performed By: #### C BC #### [facility] Laboratory Services Dr. Dimitri Herron MD [address] [place] [address] 95916 RBC (Bld) [#/Vol] 4.84 10*6/uL Normal 3.40-5.40 [facility] Comment on above: Performed By: #### C BC #### [facility] Laboratory Services Dr. Dimitri Herron MD [address] [place] [address] 05863 WBC (Bld) [#/Vol] 8.6 10*3/uL Normal 4.5-11.0 [facility] Comment on above: Performed By: #### C BC #### [facility] Laboratory Services Dr. Dimitri Herron MD [facility] [place] [address] ABDOMEN AND PELVIS W/O CO NTRASTon 09-11-2018 CT ABDOMEN AND PELVIS W/O CONTRAST PROCEDURE: CT ABDOMEN AND PELVIS W/O CONTRAST CLINICAL: LEFT FLANK PAIN Special Instructions: = NA TECHNIQUE: Noncontrast CT of the abdomen and pelvis. COMPARISON: CT abdomen and pelvis 05/22/2009. FINDINGS: Lower Thorax: Bibasilar dependent atelectasis. Liver: The liver is normal. Gallbladder: The gallbladder is normal. Spleen: The spleen is normal. Pancreas: The pancreas is normal. Adrenal Glands: The adrenal glands are normal. Kidneys / Ureters / Urinary Bladder: Punctate nonobstructing left interpolar renal calculus. No additional renal or ureteral calculi. No hydronephrosis or hydroureter. Normal urinary bladder. Gastrointestinal: The small and large bowel are of normal caliber without evidence of obstruction or ileus. Mild scattered colonic diverticulosis with sparing of the ascending colon without evidence of diverticulitis. Normal appendix. Mesentery: The mesentery is normal. Peritoneum: No free fluid. No free air. Reproductive: Anteverted uterus. Dominant left ovarian follicle versus cyst measuring 2.1 cm. Aorta: Normal caliber aorta. Lymph Nodes: There is no lymphadenopathy. Soft Tissues: No significant soft tissue abnormality. Osseous Structures: Mild disc bulge at L1-L2. Moderate disc bulge at L2-L3. IMPRESSION: Punctate nonobstructing left renal calculus. Dominant left ovarian follicle versus cyst. Diverticulosis. PQRS: PQRS 436 - Radiation Consideration for Adult CT: Utilization of Dose Lowering Techniques Individualized dose optimization techniques were utilized for the performance of the above-mentioned procedure. Dose optimization techniques employed during this evaluation include: automated exposure control, patient adjusted mA and/or kV, and iterative reconstruction techniques. Electronically signed by: Gus Dunn M.D. Date/time: 09-11-2018, 03:06 AM Final Report Normal [facility] Serum Preg-Qualitativeon Serum Preg-Qualitative Negative Normal Negative So [facility] Comment on above: Performed By: #### B SS #### [facility] Laboratory Services Dr. Dimitri Herron MD [address] [place] [address] [phone] UA Micro Reflex to Cultureon 09-11-2018 Red Blood Cells (Urine) 4 [HPF] Normal 0-5 [facility] Comment on above: Performed By: #### [place] #### [facility] Laboratory Services Dr. Dimitri Herron MD [address] [place] [address] 49117 Bacteria LM.HPF (Urine sed) [#/Area] Occasional Abnormal None [facility] Comment on above: Performed By: #### U [place] #### [facility] Laboratory Services Dr. Dimitri Herron MD [address] [place] [address] [phone] Epithelial cells.squamous LM.HPF (Urine sed) [#/Area] 9 [HPF] High 0-4 [facility] Comment on above: Performed By: #### U [place] #### [facility] Laboratory Services Dr. Dimitri Herron MD [address] [place] [address] 61364 Hyaline Cast 4 Normal 0-5 [facility] Comment on above: Performed By: #### U [place] #### [facility] Laboratory Services Dr. Dimitri Herron MD [address] [place] [address] 03309 White Blood Cells (Urine) 15 [HPF] High 0-4 [facility] Comment on above: Performed By: #### U [place] #### [facility] Laboratory Services Dr. Dimitri Herron MD [address] [place] [address] 06022 Appearance (U) Cloudy Abnormal Clear [facility] Comment on above: Performed By: #### U [place] #### [facility] Laboratory Services Dr. Dimitri Herron MD [address] [place] [address] 34724 Bilirubin [Mass/Vol] Negative Normal Negative [facility] Comment on above: Performed By: #### U [place] #### [facility] Laboratory Services Dr. Dimitri Herron MD [address] [place] [address] 36375 Blood (Urine) Trace Abnormal Negative [facility] Comment on above: Performed By: #### U [place] #### [facility] Services Dr. Dimitri Herron MD [address] [place] [address] [phone] Color (U) Yellow Normal Yellow [facility] Comment on above: Performed By: #### U [place] #### [facility] Laboratory Services Dr. Dimitri Herron MD [address] [place] [address] 12537 Glucose [Mass/Vol] Negative Normal Negative [facility] Comment on above: Performed By: #### U [place] #### [facility] Laboratory Services Dr. Dimitri Herron MD [address] [place] [address] 78347 Ketones Ql (U) Negative Normal Negative [facility] Comment on above: Performed By: #### U [place] #### [facility] Laboratory Services Dr. Dimitri Herron MD [address] [place] [address] 90282 Leukocyte esterase Test strip Ql (U) Negative Normal Negative [facility] Comment on above: Performed By: #### U [place] #### [facility] Services Dr. Dimitri Herron MD [address] [place] [address] 80983 Nitrite Ql (U) Negative Normal Negative [facility] Comment on above: Performed By: #### U [place] #### [facility] Laboratory Services Dr. Dimitri Herron MD [address] [place] [address] 40206 pH (U) 7.0 [pH] Normal <=7.5 [facility] Comment on above: Performed By: #### U [place] #### [facility] Services Dr. Dimitri Herron MD [address] [place] [address] 51114 Protein (U) [Mass/Vol] Trace Abnormal Negative So [facility] Comment on above: Performed By: #### U [place] #### [facility] Services Dr. Dimitri Herron MD [address] [place] [address] 07053 Specific gravity (U) [Rel density] 1.016 Normal 1.005-1.025 [facility] Comment on above: Performed By: #### U [place] #### [facility] Laboratory Services Dr. Dimitri Herron MD [address] [place] [address] 05144 Urobilinogen Qn (U) 0.2 Normal 0-2.0 [facility] Comment on above: Performed By: #### U [place] #### [facility] Laboratory Services Dr. Dimitri Herron MD [address] [place] [address] 13227 Urine Type Clean catch Normal [facility] Comment on above: Performed By: #### U [place] #### [facility] Laboratory Services Dr. Dimitri Herron MD [address] [place] [address] 46118 Urine culture routine Bacteria identified Cx Nom (U) [facility] Work Phone: Vital Signs Date Time Vital Sign Value Performing Clinician Carlotta wisdom 07-07-2024 13:58-0400 Body temperature 96.1 [degF] No Primary Care Physician [facility] 07-07-2024 13:58-0400 Diastolic blood pressure 101 mm[Hg] No Primary Care Physician [facility] 07-07-2024 13:58-0400 Heart rate 65 /min No Primary Care Physician [facility] 07-07-2024 13:58-0400 Respiratory rate 17 /min No Primary Care Physician [facility] 07-07-2024 13:58-0400 SaO2% (BldA) [Mass fraction] 96 % No Primary Care Physician [facility] 07-07-2024 13:58-0400 Systolic blood pressure 155 mm[Hg] No Primary Care Physician [facility] 07-07-2024 11:54-0400 Body height 165.1 cm No Primary Care Physician [facility] 07-07-2024 11:54-0400 Body mass index (BMI) [Ratio] 41.5 kg/m2 No Primary Care Physician [facility] 07-07-2024 11:54-0400 Body weight 113.44 kg No Primary Care Physician [facility] 06-06-2023 13:53-0500 Body height 165.1 cm DO Chago Edwards Work Phone: [facility] 06-06-2023 13:53-0500 Body mass index (BMI) [Ratio] 36.2 kg/m2 DO Chago Edwards Work Phone: [facility] 06-06-2023 13:53-0500 Body weight 98.7 kg DO Chago Edwards Work Phone: [facility] 06-06-2023 13:53-0500 Diastolic blood pressure 92 mm[Hg] DO Chago Edwards Work Phone: [facility] 06-06-2023 13:53-0500 Heart rate 90 /min DO Chago Edwards Work Phone: [facility] 06-06-2023 13:53-0500 SaO2% (BldA) [Mass fraction] 92 % DO Chago Edwards Work Phone: [facility] 06-06-2023 13:53-0500 Systolic blood pressure 145 mm[Hg] DO Chago Edwards Work Phone: [facility] 05-15-2023 09:15-0500 Diastolic blood pressure 75 mm[Hg] DO Chago Edwards Work Phone: [facility] 05-15-2023 09:15-0500 Heart rate 75 /min DO Chago Edwards Work Phone: [facility] 05-15-2023 09:15-0500 Respiratory rate 18 /min DO Chago Edwards Work Phone: [facility] 05-15-2023 09:15-0500 SaO2% (BldA) [Mass fraction] 95 % DO Chago Edwards Work Phone: [facility] 05-15-2023 09:15-0500 Systolic blood pressure 128 mm[Hg] DO Chago Edwards Work Phone: [facility] 05-15-2023 07:48-0500 Body height 165.1 cm DO Chago Edwards Work Phone: [facility] 05-15-2023 07:48-0500 Body weight 89.36 kg DO Chago Edwards Work Phone: [facility] 05-15-2023 07:43-0500 Body temperature 97.6 [degF] DO Chago Edwards Work Phone: [facility] 04-17-2023 09:45-0500 Diastolic blood pressure 69 mm[Hg] DO Chago Edwards Work Phone: [facility] 04-17-2023 09:45-0500 Heart rate 71 /min DO Chago Edwards Work Phone: [facility] 04-17-2023 09:45-0500 Respiratory rate 20 /min DO Chago Edwards Work Phone: [facility] 04-17-2023 09:45-0500 SaO2% (BldA) [Mass fraction] 95 % DO Chago Edwards Work Phone: [facility] 04-17-2023 09:45-0500 Systolic blood pressure 115 mm[Hg] DO Chago Edwards Work Phone: [facility] 04-17-2023 08:39-0500 Body height 165.1 cm DO Chago Edwards Work Phone: [facility] 04-17-2023 08:39-0500 Body weight 105 kg DO Chago Edwards Work Phone: [facility] 04-17-2023 08:36-0500 Body temperature 97.4 [degF] DO Chago Edwards Work Phone: [facility] 03-26-2023 13:15-0500 Body height 165 cm DO Chago Edwards Work Phone: [facility] 03-26-2023 13:15-0500 Body mass index (BMI) [Ratio] 35.4 kg/m2 DO Chago Edwards Work Phone: [facility] 03-26-2023 13:15-0500 Body temperature 98.3 [degF] DO Chago Edwards Work Phone: [facility] 03-26-2023 13:15-0500 Body weight 96.3 kg DO Chago Edwards Work Phone: [facility] 03-26-2023 13:15-0500 Diastolic blood pressure 83 mm[Hg] DO Chago Edwards Work Phone: [facility] 03-26-2023 13:15-0500 Heart rate 75 /min DO Chago Edwards Work Phone: [facility] 03-26-2023 13:15-0500 Respiratory rate 18 /min DO Chago Edwards Work Phone: [facility] 03-26-2023 13:15-0500 SaO2% (BldA) [Mass fraction] 96 % DO Chago Edwards Work Phone: [facility] 03-26-2023 13:15-0500 Systolic blood pressure 127 mm[Hg] DO Chago Edwards Work Phone: [facility] 03-14-2023 14:13-0500 Body height 165.1 cm DO Chago Edwards Work Phone: [facility] 03-14-2023 14:13-0500 Body mass index (BMI) [Ratio] 36.2 kg/m2 DO Chago Edwards Work Phone: [facility] 03-14-2023 14:13-0500 Body weight 98.8 kg DO Chago Edwards Work Phone: [facility] 03-14-2023 14:13-0500 Diastolic blood pressure 95 mm[Hg] DO Chago Edwards Work Phone: [facility] 03-14-2023 14:13-0500 Heart rate 78 /min DO Chago Edwards Work Phone: [facility] 03-14-2023 14:13-0500 Systolic blood pressure 151 mm[Hg] DO Chago Edwards Work Phone: [facility] 01-06-2023 00:31-0400 Diastolic blood pressure 92 mm[Hg] DO Chago Edwards Work Phone: [facility] 01-06-2023 00:31-0400 Heart rate 81 /min DO Chago Edwards Work Phone: [facility] 01-06-2023 00:31-0400 Respiratory rate 17 /min DO Chago Edwards Work Phone: [facility] 01-06-2023 00:31-0400 SaO2% (BldA) [Mass fraction] 98 % DO Chago Edwards Work Phone: [facility] 01-06-2023 00:31-0400 Systolic blood pressure 135 mm[Hg] DO Chago Edwards Work Phone: [facility] 01-05-2023 20:20-0400 Body height 165.1 cm DO Chago Edwards Work Phone: [facility] 01-05-2023 20:20-0400 Body mass index (BMI) [Ratio] 36.6 kg/m2 DO Chago Edwards Work Phone: [facility] 01-05-2023 20:20-0400 Body temperature 98.3 [degF] DO Chago Edwards Work Phone: [facility] 01-05-2023 20:20-0400 Body weight 100 kg DO Chago Edwards Work Phone: [facility] 01-03-2023 19:43-0400 Body height 165.1 cm DO Chago Edwards Work Phone: [facility] 01-03-2023 19:43-0400 Body mass index (BMI) [Ratio] 36.8 kg/m2 DO Chago Edwards Work Phone: [facility] 01-03-2023 19:43-0400 Body temperature 97.8 [degF] DO Chago Edwards Work Phone: [facility] 01-03-2023 19:43-0400 Body weight 100.4 kg DO Chago Edwards Work Phone: [facility] 01-03-2023 19:43-0400 Diastolic blood pressure 83 mm[Hg] DO Chago Edwards Work Phone: [facility] 01-03-2023 19:43-0400 Heart rate 97 /min DO Chago Edwards Work Phone: [facility] 01-03-2023 19:43-0400 Respiratory rate 18 /min DO Chago Edwards Work Phone: [facility] 01-03-2023 19:43-0400 SaO2% (BldA) [Mass fraction] 97 % DO Chago Edwards Work Phone: [facility] 01-03-2023 19:43-0400 Systolic blood pressure 132 mm[Hg] DO Chago Edwards Work Phone: [facility] 06-03-2022 00:55-0500 Diastolic blood pressure 76 mm[Hg] DO Chago Edwards Work Phone: [facility] 06-03-2022 00:55-0500 Heart rate 69 /min DO Chago Edwards Work Phone: [facility] 06-03-2022 00:55-0500 Respiratory rate 20 /min DO Chago Edwards Work Phone: [facility] 06-03-2022 00:55-0500 SaO2% (BldA) [Mass fraction] 98 % DO Chago Edwards Work Phone: [facility] 06-03-2022 00:55-0500 Systolic blood pressure 138 mm[Hg] DO Chago Edwards Work Phone: [facility] 06-02-2022 18:18-0500 Body height 165.1 cm DO Chago Edwards Work Phone: [facility] 06-02-2022 18:18-0500 Body mass index (BMI) [Ratio] 35.8 kg/m2 DO Chago Edwards Work Phone: [facility] 06-02-2022 18:18-0500 Body temperature 98 [degF] DO Chago Edwards Work Phone: [facility] 06-02-2022 18:18-0500 Body weight 97.72 kg DO Chago Edwards Work Phone: [facility] 12-18-2021 00:35-0400 Diastolic blood pressure 86 mm[Hg] DO Chago Edwards Work Phone: [facility] Work Phone: 12-18-2021 00:35-0400 Heart rate 66 /min DO Chago Edwards Work Phone: [facility] Work Phone: 12-18-2021 00:35-0400 Respiratory rate 16 /min DO Chago Edwards Work Phone: [facility] Work Phone: 12-18-2021 00:35-0400 SaO2% (BldA) [Mass fraction] 96 % DO Chago Edwards Work Phone: [facility] Work Phone: 12-18-2021 00:35-0400 Systolic blood pressure 162 mm[Hg] DO Chago Edwards Work Phone: [facility] Work Phone: 12-17-2021 21:11-0400 Body height 165.1 cm DO Chago Edwards Work Phone: [facility] Work Phone: 12-17-2021 21:11-0400 Body mass index (BMI) [Ratio] 37.4 kg/m2 DO Chago Edwards Work Phone: [facility] Work Phone: 12-17-2021 21:11-0400 Body temperature 97.9 [degF] DO Chago Edwards Work Phone: [facility] Work Phone: 12-17-2021 21:11-0400 Body weight 102 kg DO Chago Edwards Work Phone: [facility] Work Phone: 04-14-2021 09:54-0500 Body height 165.1 cm DO Chago Edwards Work Phone: [facility] Work Phone: 04-14-2021 09:54-0500 Body mass index (BMI) [Ratio] 38.6 kg/m2 DO Chago Edwards Work Phone: [facility] Work Phone: 04-14-2021 09:54-0500 Body weight 105.23 kg DO Chago Edwards Work Phone: [facility] Work Phone: 04-14-2021 09:54-0500 Diastolic blood pressure 84 mm[Hg] DO Chago Edwards Work Phone: [facility] Work Phone: 04-14-2021 09:54-0500 Heart rate 76 /min DO Chago Edwards Work Phone: [facility] Work Phone: 04-14-2021 09:54-0500 Respiratory rate 14 /min DO Chago Edwards Work Phone: [facility] Work Phone: 04-14-2021 09:54-0500 SaO2% (BldA) [Mass fraction] 96 % DO Chago Edwards Work Phone: [facility] Work Phone: 04-14-2021 09:54-0500 Systolic blood pressure 145 mm[Hg] DO Chago Edwards Work Phone: [facility] Work Phone: Encounters Encounter Date Encounter Type Care Provider Facility Start: 07-07-2024 End: 07-07-2024 Emergency department patient visit No Primary Care Physician -Emergency Department Work Phone: Start: 06-06-2023 End: 06-06-2023 ambulatory Roman Breaux Facility:[facility] Start: 06-06-2023 Non-patient / Non-visit DO Smooth kessleras Edwards Work Phone: [facility] Work Phone: Start: 05-15-2023 ambulatory Roman Metcalfi lity:[facility] Start: 05-15-2023 Non-patient / Non-visit DO Smooth holas Edwards Work Phone: [facility] Start: 05-15-2023 ambulatory Roman Breaux Faci lity:[facility] Start: 05-15-2023 End: 05-15-2023 ambulatory Roman Breaux Facility:[facility] Start: 05-15-2023 Non-patient / Non-visit DO Smooth holas Edwards Work Phone: [facility] Work Phone: Start: 05-15-2023 End: 05-15-2023 Admission to same day surgery center DO Chago Edwards Work Phone: [facility] Work Phone: Start: 05-15-2023 End: 05-15-2023 ambulatory DO Chago Palak Edwards Work Phone: [facility] Work Phone: Start: 04-17-2023 ambulatory Romanjanette Breaux Faci lity:[facility] Start: 04-17-2023 End: 04-17-2023 ambulatory Roman Breaux Facility:[facility] Start: 04-17-2023 Non-patient / Non-visit DO Smooth holas Edwards Work Phone: [facility] Work Phone: Start: 04-17-2023 End: 04-17-2023 Admission to same day surgery center DO Chago Edwards Work Phone: [facility] Work Phone: Start: 04-17-2023 End: 04-17-2023 ambulatory DO Chago Palak Edwards Work Phone: [facility] Work Phone: Start: 03-26-2023 End: 03-26-2023 ambulatory Sagar Lema Facility:[facility] Start: 03-26-2023 End: 03-26-2023 Patient encounter procedure DO Chago Edwards Work Phone: [facility] (ACUTE) Work Phone: Start: 03-14-2023 End: 03-14-2023 ambulatory Romanjanette Breaux Facility:[facility] Start: 03-14-2023 End: 03-14-2023 Non-patient / Non-visit DO Chago Edwards Work Phone: [facility] Work Phone: Start: 01-30-2023 End: 01-31-2023 ambulatory Shaunna Estevez Facility:[facility] Start: 01-30-2023 Non-patient / Non-visit DO Smooth holas Edwards Work Phone: [facility] Start: 01-30-2023 End: 01-30-2023 ambulatory DO Chago Palak Edwards Work Phone: [facility] Work Phone: Start: 01-30-2023 End: 01-30-2023 Patient encounter procedure DO Chago Edwards Work Phone: [facility] (ACUTE) Work Phone: Start: 01-06-2023 ambulatory Álvaro Valentine ity:[facility] Start: 01-05-2023 ambulatory Burt Blunt Facility :[facility] Start: 01-05-2023 Non-patient / Non-visit DO Smooth holas Edwards Work Phone: [facility] Start: 01-05-2023 Non-patient / Non-visit DO Smooth holas Edwards Work Phone: [facility] Work Phone: Start: 01-05-2023 End: 01-06-2023 Emergency department patient visit DO Chago Edwards Work Phone: [facility] Work Phone: Start: 01-03-2023 End: 01-04-2023 ambulatory [facility] Facility:[facility] Start: 01-03-2023 End: 01-03-2023 Patient encounter procedure DO Chago Edwards Work Phone: [facility] (ACUTE) Work Phone: Start: 06-02-2022 Non-patient / Non-visit DO Smooth Tellezry Work Phone: [facility] Start: 06-02-2022 End: 06-03-2022 Emergency department patient visit DO Chago Edwards Work Phone: [facility] Start: 12-18-2021 Non-patient / Non-visit DO Smooth bedolla Edwards Work Phone: [facility] Start: 12-17-2021 End: 12-18-2021 Emergency department patient visit DO Chago Edwards Work Phone: [facility] Start: 04-14-2021 End: 04-14-2021 Patient encounter procedure DO Chago Edwards Work Phone: [facility] Start: 11-10-2020 End: 11-10-2020 Emergency department patient visit CHAGO FRANKLIN PALAK~[id number] JERRY EDWARDS [facility] Start: 06-30-2020 End: 06-30-2020 Patient encounter procedure [facility] Start: 06-29-2020 Manual pelvic examination DO Chago Edwards Work Phone: [facility] Start: 05-29-2020 ambulatory AYAD WHITT [facility] Start: 05-29-2020 Encounter for genera l adult medical examination without abnormal findings CHAGO CID~[id number] [facility] Start: 05-29-2020 End: 05-30-2020 ambulatory CHAGO CID~[id number] [facility] Start: 05-29-2020 End: 05-29-2020 ambulatory CHAGO CID~[id number] [facility] Start: 05-29-2020 ambulatory CHAGO CID~[id number] [facility] Procedures Date Procedure Procedure Detail Performing Clinician Start: 07-07-2024 CT of soft tissues o f neck with contrast No Primary Care Physician Start: 05-15-2023 Colonoscopy DO Renetta s Edwards Work Phone: Start: 04-17-2023 Colonoscopy DO Renetta s Edwards Work Phone: Start: 03-26-2023 Urine culture DO Basilia as Edwards Work Phone: Start: 01-05-2023 Urine culture DO Basilia as Edwards Work Phone: Start: 01-03-2023 Urine culture DO Basilia as Edwards Work Phone: Start: 06-02-2022 Microbial culture DO Ni cholas Edwards Work Phone: Urine culture DO Chago La ndry Work Phone: Plan of Treatment Date Care Activity Detail Author Start: 07-07-2024 [facility] Start: 05-15-2023 Advance diet as tolerated [facility] Start: 05-15-2023 Patient discharge [facility] Start: 05-15-2023 [facility] Start: 04-17-2023 Advance diet as tolerated [facility] Start: 04-17-2023 Patient discharge [facility] Start: 01-05-2023 Bacteria identified in Urine by Culture [facility] Start: 06-03-2022 [facility] Work Phone: Bacteria identified in Blood by Culture Blood Culture [facility] Work Phone: Patient Education [facility] Work Phone: Patient referral [facility] Work Phone: Payers Date Payer Category Payer Medicaid [id number] 2023 Self-pay [id number] 2012 Medicaid [id number] Unknown [id number] 2.16. [id number] Unknown [id number] 2.16. 840.1.991915.3.579.2.1149 Unknown [id number] 2.16. 840.1.230291.3.579.2.1149 Unknown [id number] 2.16. 840.1.712394.3.579.2.1149 Unknown [id number] 2.16. 840.1.060456.3.579.2.1149 Unknown [id number] 2.16. 840.1.797331.3.579.2.1149 Unknown [id number] 2.16. 840.1.447756.3.579.2.1149 Unknown [id number] 2.16. 840.1.988640.3.579.2.1149 Unknown [id number] 2.16. 840.1.375161.3.579.2.1149 Unknown [id number] 2.16. 840.1.175938.3.579.2.1149 Unknown [id number] 2.16. 840.1.825509.3.579.2.1149 Unknown [id number] 2.16. 840.1.128040.3.579.2.1149 Unknown [id number] 2.16. 840.1.888961.3.579.2.1149 Unknown [id number] 2.16. 840.1.162338.3.579.2.1149 Unknown [id number] 2.16. 840.1.518215.3.579.2.1149 Unknown [id number] 2.16. 840.1.541406.3.579.2.1149 Unknown [id number] 2.16. 840.1.540213.3.579.2.1149 Unknown [id number] 2.16. 840.1.898985.3.579.2.1149 Unknown [id number] 2.16. 840.1.097102.3.579.2.1149 Unknown [id number] 2.16. 840.1.772131.3.579.2.1149 Unknown [id number] 2.16.8 [id number] Social History Date Type Detail Facility Start: 06-06-2021 End: 06-06-2023 Tobacco smoking status [facility] Current every day smoker [facility] Start: 1975 Sex Assigned At Female [facility] Start: 01-06-2023 Tobacco smoking stat [facility] Former smoker [facility] Start: 07-07-2024 Tobacco smoking stat [facility] Current some day smoker [facility] Start: 07-07-2024 Sex Female (finding) [facility] Clinical Notes 05-15-2023 to 07-07-2024 Note Date & Type Note Facility 07-07-2024 Radiology Diagnostic study note [facility] Imaging Services [address] [place] [address] Soft Tissue Neck WITH Contrast MR#: [id number] Acct: [id number] Name: KENNY NAIDUZARA Robertson Rep #: [id number] : 1975 F 49 From: Barbara Tuttle MD PCP: Care Physician,No Primary Status: REG ER Study:Soft Tissue Neck WITH Contrast Date of Exam: 07/07/24 Exam# [id number] Ordering Dr: Elmira Quinonez PROCEDURE: SOFT TISSUE NECK WITH CONTRAST 07/07/2024 REASON FOR EXAM: 49-year-old female, L TRAGUS AND PAROTID SWELLING TECHNIQUE: CT of the soft tissues of the neck from the orbits to the upper mediastinum withintravenous contrast. CONTRAST: Isovue 370 VOLUME: 100 mL One or more dose reduction techniques were used (e.g., Automated exposure control, adjustment of the mA and/or kV according to patient size, use of iterative reconstruction technique). RADIATION DOSE SUMMARY: CTDlvol: 20 mGy DLP: 600 mGycm COMPARISON: None. FINDINGS: Airway: Midline and patent. Salivary glands: Asymmetric enlargement of the left parotid gland with scatteredintraparotid lymph nodes. No discrete mass visualized. The bilateral submandibular glands are unremarkable. Lymph nodes: Prominent left cervical chain nodes, for example a left level IIb lymph node (series 2, image 56) and left level Vc node (series 2, image 54). Thyroid: Unremarkable. Vasculature: Carotid arteries and internal jugular veins are unremarkable. Orbits: Unremarkable at visualized levels. Paranasal sinuses and mastoids: The mastoids and visualized paranasal sinuses are well-aerated. Lung apices: Clear. Upper mediastinum: Visualized mediastinum is unremarkable. Bones: Multilevel degenerative changes of the spine. Other: Mild asymmetric thickening of the left auricular cartilage. No obvious inflammation of the external auditory canal. CT/Soft Tissue Neck WITH Contrast IMPRESSION: 1. Asymmetric enlargement of the left parotid gland with scattered intraperitoneal nodes, likely reactive. Findings are nonspecific and may represent parotitis due to infection or inflammatory process. If patient's symptoms do not subside after treatment, recommend MRI in four weeks to evaluate for additional causes. 2. Mild asymmetric thickening of the left auricular cartilage, which is indeterminate in etiology but may represent perichondritis. No obvious extension into the external auditory canal. Clinical and physical exam correlation recommended. Reading Location: [id number] CC: MAYNOR Zhu; No Primary Care Physician ~ Composition Professor: Signed [facility] 05-15-2023 Progress note Note Date/Time May 15, 2023 7:48am [place] [address] Pre-Anesthesia Note Signed Patient: Amy Naidu MR#: [id number] : 1975 Acct: [id number] Age/Sex: 48 / F ADM Date: 4 8048 [facility] Att[facility] Dr: Roman Breaux D.O. cc: Cata Boss M.D.~ Op Procedure Operative Procedure Type: SDS Prior Anesthesia Anesthesia History Previous problems with anesthesia: none Tobacco: current, some-day smoker Preoperative Checklist Pre Op Checklist NPO since: >8hrs Cognition level of patient: appropriate to age level OK for Patient to Receive Narcotics During Visit: Yes Medication Precautions: No PFSH PFSH Medical History (Updated 05/10/23 @ 09:06 by Mehnaz Martinez RN) Diabetes History of anxiety History of depression History of ovarian cyst Hypertension Last menstrual period (LMP) < 10 days ago Mar 2023 Surgical History H/O lithotripsy History of Hx of cardiac cath no stents Family History Father Diabetes Social History Advance Directives: No Advance Directives Information Provided: Yes Advance Directives on File: No Would like to be referred to Claim Approver for info?: No Smoking Status: Current every day smoker What tobacco products do you use: cigarettes Smoking packs per day: 0.5 Smoking cigarettes per day: 10.0 Nicotine containing products detail: Quit smoking 3 days ago How often do you have a drink containing alcohol: never Non prescribed substance use: former substance user, methamphetamine and deniesuse Non prescribed substance use details: clean 11 months (mar 2020) Travel outside of [place] in last 30 days?: No caffeine: Yes Caffeine use details: pop 1-2 cans daily Highest level of school completed/degree received: high school graduate Spiritual Healthcare Practices: denies Voodoo Healthcare Practices: denies Cultural Healthcare Practices: denies Father Diabetes (Updated 05/10/23 @ 09:06 by Mehnaz Martinez RN) Diabetes History of anxiety History of depression History of ovarian cyst Hypertension Last menstrual period (LMP) < 10 days ago Pre Anesthesia Exam Airway Exam Dentition: Lower Partial and Upper Partial Mallampati: II Mouth opening: age appropriate Hyoid to Mentum: age appropriate C-Spine: Normal Neck Anatomy: Normal Jaw Protrusion: Normal: lower incisors can protrude past upper incisors Exiting Airway: None Respiratory Common normals: normal respiratory effort Meds Home Medications and Allergies Home Medications Medication Instructions Recorded Confirmed Type metoprolol tartrate 25 mg tablet 25 mg ORAL BID blood pressure 06/29/20 05/10/23istory clonidine HCl 0.1 mg tablet 0.1 mg ORAL BID blood pressure 10/22/20 05/10/23 History diclofenac sodium 100 mg 100 mg ORAL DAILY arthritis pain 10/22/20 05/10/23 History tablet,extended release 24 hr omeprazole 20 mg capsule,delayed 20 mg ORAL DAILY gerd 10/22/20 05/10/23 History release amlodipine 5 mg tablet 5 mg ORAL DAILY blood pressure 04/14/21 05/10/23 History lovastatin 20 mg tablet 20 mg ORAL DAILY cholesterol 04/14/21 05/10/23 History benazepril 20 1 tablet ORAL DAILY blood pressure 06/02/22 05/10/23 History mg-hydrochlorothiazide 25 mg tablet cholecalciferol (vitamin D3) 50 2,000 unit ORAL DAILY supplement 06/02/22 05/10/23 History mcg (2,000 unit) tablet dulaglutide 0.75 mg/0.5 mL 0.75 mg subcut MO diabetes 06/02/22 05/10/23 History subcutaneous pen injector (Trulicity) empagliflozin 25 mg tablet 25 mg ORAL DAILY diabetes 06/02/22 05/10/23 History (Jardiance) ergocalciferol (vitamin D2) 1,250 50,000 unit ORAL WEEKLY supplement 06/02/22 05/10/23 History mcg (50,000 unit) capsule metformin 500 mg tablet 1,000 mg ORAL BID dmt2 06/02/22 05/10/23 History Allergies Allergy/AdvReac Type Severity Reaction Status Date / Time hydromorphone [From Dilaudid] AdvReac Mild Itching Verified 05/10/23 09:06 Obstetrical History History : 2 Para: 2 Pre Anesthesia Results Vital Signs Height: 1.65 m Weight: 89.36 kg BMI: 32.8 Labs Labs: Laboratory Results - last 24 hr 05/15/23 07:41 Glucometer 145 H Diagnostic results Chest x-ray: report reviewed EKG Rate & Rhythm: NSR Anesthesia Plan Plan Type of Anesthesia Planned:: Monitored Anesthesia Care Monitors: Standard Anesthesia Risk ASA Physical Status: ASA 3 Consent Consent: Risk/Benefit of anesthesia plan & blood product discussed Patient/Family understand and agree upon risks vs benefits of anesthesia: Yes Documented By: Cata Boss M.D. 05/15/23 0 748 Signed By: <Electronically signed by Cata Boss M.D.> 05/15/23 0748 [facility] Work Phone: Chief complaint+Reason for visit Narrative* Chief Complaint referral/Block Headache Headache Reason for Visit Daytime sleepiness Fatigue Hypertension, poor control [facility] Work Phone: Evaluation note* Diagnosis Onset Date Resolution Status Daytime sleepiness noneactiv e Fatigue noneactive Hypertension, poor control n oneactive [facility] Work Phone: Evaluation noteNo assessment information available [facility] Work Phone: Evaluation note* Diagnosis Onset Date Resolution Status Low back pain noneactive [facility] Work Phone: Evaluation note* Diagnosis Onset Date Resolution Status Low back pain noneactive Abdominal pain acute Diverticulosis acute Hepatic steatosis acute Positive colorectal cancer s creening using Cologuard test acute Acute cystitis with hematuria noneactive Dysuria noneactive Positive colorectal cancer s creening using Cologuard test acute [facility] Work Phone: Evaluation note* Diagnosis Onset Date Resolution Status Low back pain noneactive Abdominal pain acute Diverticulosis acute Hepatic steatosis acute Positive colorectal cancer s creening using Cologuard test acute Acute cystitis with hematuria noneactive Dysuria noneactive Positive colorectal cancer s creening using Cologuard test acute Diverticulosis acute Hyperplastic colon polyp acu te [facility] Work Phone: History and physical note Author Roman Breaux [facility] April 17, 2023 9:09am Note Date/Time April 17, 2023 9 :09am [facility] Main [address] [address] General Surg History&Physical Signed Patient: Amy Naidu MR#: [id number] : 1975 Acct: [id number] Age/Sex: 47 / F ADM Date: 907 Loc: [facility] Attending Dr: Roman Breaux D.O. cc: Roman Breaux D.O.~ History of Present Illness History of Present Illness Date of service: 04/17/23 Chief complaint: POSITIVE COLOGUARD Narrative: Amy Naidu is a 47 year old female here for colonoscopy for positive Cologuard Review of Systems Const: Constitutional: Denies fever(s), chills, fatigue or headache(s) Eyes: Eyes: Denies eye pain, blurry vision or diplopia ENT: ENT: Reports Normal hearing present; Denies dizziness or headache(s) Cardio: Cardiology: Denies chest pain, ankle/foot swelling, lightheadedness, palpitations or dyspnea Resp: Respiratory: Denies cough or dyspnea Gastro: GI: Denies abdominal pain, nausea, vomiting, diarrhea or constipation Genitou: Genitourinary female: Denies urinary frequency, urinary incontinence or urinary urgency Musculo: Symptoms musculoskeletal: Denies abnormal gait, back pain or myalgias Skin/Breast: Symptoms integumentary/breasts: Denies rash, erythema, abscess orwounds Neurologic: Neurologic: Reports Normal hearing present; Denies headache(s), dizziness or abnormal gait Psychiatric: Symptoms psychiatric: Denies anxiety, depression or change in appetite Endocrine: Symptoms endocrine: Denies fatigue, flushing or palpitations [place]/Lymph: Symptoms hematologic/lymphatic: Denies easy bleeding, easy bruising or petechiae Allergic/Imm: Symptoms allergic/immunologic: Denies GI upset with certain foods, urticaria or recurrent infections PFSH PFSH Medical History Diabetes History of anxiety History of depression History of ovarian cyst Hypertension Last menstrual period (LMP) < 10 days ago 03/2023 Surgical History H/O lithotripsy History of Hx of cardiac cath no stents Family History Father Diabetes Social History Advance Directives: No Advance Directives Information Provided: Yes Advance Directives on File: No Would like to be referred to Claim Approver for info?: No Smoking Status: Current every day smoker What tobacco products do you use: cigarettes Smoking packs per day: 0.5 Smoking cigarettes per day: 10.0 Nicotine containing products detail: Quit smoking 3 days ago How often do you have a drink containing alcohol: never 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 in last 30 days?: No caffeine: Yes Caffeine use details: pop 1-2 cans daily Highest level of school completed/degree received: high school graduate Spiritual Healthcare Practices: none Voodoo Healthcare Practices: none Cultural Healthcare Practices: none Father Diabetes Diabetes History of anxiety History of depression History of ovarian cyst Hypertension Last menstrual period (LMP) < 10 days ago Meds Home Medications and Allergies Home Medications Medication Instructions Recorded Confirmed Type metoprolol tartrate 25 mg tablet 25 mg ORAL BID blood pressure 06/29/20 04/17/23istory clonidine HCl 0.1 mg tablet 0.1 mg ORAL BID blood pressure 10/22/20 04/17/23 History diclofenac sodium 100 mg 100 mg ORAL DAILY arthritis pain 10/22/20 04/10/23 History tablet,extended release 24 hr omeprazole 20 mg capsule,delayed 20 mg ORAL DAILY gerd 10/22/20 04/10/23 History release amlodipine 5 mg tablet 5 mg ORAL DAILY blood pressure 04/14/21 04/17/23 History lovastatin 20 mg tablet 20 mg ORAL DAILY cholesterol 04/14/21 04/10/23 History benazepril 20 1 tablet ORAL DAILY blood pressure 06/02/22 04/17/23 History mg-hydrochlorothiazide 25 mg tablet cholecalciferol (vitamin D3) 50 2,000 unit ORAL DAILY supplement 06/02/22 04/10/23 History mcg (2,000 unit) tablet dulaglutide 0.75 mg/0.5 mL 0.75 mg subcut MO diabetes 06/02/22 04/17/23 History subcutaneous pen injector (Trulicity) empagliflozin 25 mg tablet 25 mg ORAL DAILY diabetes 06/02/22 04/17/23 History (Jardiance) ergocalciferol (vitamin D2) 1,250 50,000 unit ORAL MO supplement 06/02/22 04/10/23 History mcg (50,000 unit) capsule metformin 500 mg tablet 1,000 mg ORAL BID dmt2 06/02/22 04/17/23 History cyclobenzaprine 5 mg tablet 5 mg ORAL BID PRN muscle spasm #10 01/03/23 04/10/23Rx tabs Allergies Allergy/AdvReac Type Severity Reaction Status Date / Time hydromorphone [From Dilaudid] AdvReac Itching Verified 04/10/23 16:21 Exam Const Common normals: Yes no acute distress, Yes average body habitus and Yes patient oriented x3 HEENT Common normals: normocephalic, atraumatic and moist oral mucous membranes Head and scalp: normocephalic and atraumatic Face and sinus: normal facial exam Eye Common normals: conjunctivae normal and no scleral icterus Conjunctiva: conjunctivae normal Neck & C-Spine Common normals: full ROM and no lymphadenopathy Chest Common normals: normal inspection of the chest Chest: Symmetrical chest wall rise Respiratory Common normals: normal respiratory effort, No retractions and No use of accessory muscles Cardio Common normals: regular rate and Peripheral pulses 2+ throughout Rate: regular rate Peripheral pulses: Peripheral pulses 2+ throughout GI Common normals: Soft to palpation and No hepatosplenomegaly present Inspection: No abdominal distension Palpation: Soft to palpation, No Tenderness to palpation present (GI), No Guarding due to palpation present (GI), No Rigid due to palpation and No hepatosplenomegaly present Extremity Common normals: normal to inspection, full ROM and no clubbing, cyanosis or edema Neuro Common normals: patient oriented x3, moves all extremities, no focal motor deficits and speech normal Psych Common normals: mental status grossly normal, Normal thought process present andcooperative Thought process: Normal thought process present Skin Common normals: Yes no rashes or lesions noted, Yes no wounds, Yes turgor normaland Yes no jaundice General skin exam: no rashes or lesions noted and turgor normal Results Vital Signs Vital Signs Temp Pulse Resp BP Pulse Ox O2 Del Method 04/17/23 08:36 97.4 F 60 18 117/76 96 Room Air Intake and Output 04/16/23 04/17/23 04/17/23 23:59 07:59 15:59 Weight 231 lb 7.766 oz Patient Weight 04/17/23 23:59 Weight 231 lb 7.766 oz Labs Labs: Laboratory Results - last 24 hr 04/17/23 04/17/23 08:18 08:20 Glucometer 144 H Beta HCG, Qual Negative Assessment and Plan Assessment and plan (1) Positive colorectal cancer screening using Cologuard test: Status: Acute Assessment and Plan: Proceed with exam Documented By: Roman Breaux D.O. 04/17/23907 Signed By: <Electronically signed by Roman Breaux D.O.> 04/17/23 0909 [facility] Work Phone: History and physical note Author Roman Breaux [facility] May 15, 2023 8:22am Note Date/Time May 15, 2023 8:22am [place] [address] History & Physical Update Signed Patient: Amy Naidu MR#: [id number] : 1975 Acct: [id number] Age/Sex: 48 / F ADM Date: 820 Loc: [facility]. Attending Dr: Roman Breaux D.O. cc: Roman Breaux D.O.~ Review Pre-Op Review The H&P was reviewed, the patient was examined, and no change has occurred in the patient?s condition since the H&P was completed.: Yes Documented By: Roman Breaux D.O. 05/15/23820 Signed By: <Electronically signed by Roman Breaux D.O.> 05/15/23821 [facility] Work Phone: Hospital Discharge instructions Additional Instructions -Continue current meds. Hydrate well. Use zofran as needed. -Follow-up with your primary care provider as directed -If any of your symptoms worsen please return to the ER for further evaluation -Thank you for allowing me (Nichelle Gil CNP) to treat you today in the Emergency Room. If you have any questions about the care you received or have any concerns please call [phone] and we will be happy to assist you. Thank you for choosing [facility]. -You may receive a survey after your visit today at the Emergency Room. Your feedback is very important to me and the [facility] organization as a whole. We appreciate any feedback that you may have as this allows me and the [facility] team to continue to improve the care that we provide.[facility] Work Phone: Hospital Discharge instructions Additional Instructions Follow-up with ENT in 1 week if no improvement of your symptoms. Apply warm compresses to the area several times daily. You could also try sucking on sugar-free sour candy to help produce saliva.[facility] Work Phone: Progress note Author Tree Reardon [facility] April 17, 2023 8:41am Note Date/Time April 17, 2023 8 :39am [facility] Main [place] [id number] Pre-Anesthesia Note Signed Patient: Amy Naidu MR#: [id number] : 1975 Acct: [id number] Age/Sex: 47 / F ADM Date: 4 0838 Loc: [email or web address] Attending Dr: Roman Breaux D.O. cc: Tree Reardon D.O.~ Prior Anesthesia Anesthesia History Previous problems with anesthesia: none Family history of problems with anesthesia: none Preoperative Checklist Pre Op Checklist OK for Patient to Receive Narcotics During Visit: Yes Medication Precautions: No PFSH PFSH Medical History (Updated 04/10/23 @ 16:22 by Sully Tavarez RN) Diabetes History of anxiety History of depression History of ovarian cyst Hypertension Last menstrual period (LMP) < 10 days ago 03/2023 Surgical History (Updated 04/10/23 @ 16:23 by Sully Tavarez RN) H/O lithotripsy History of Hx of cardiac cath no stents Family History Father Diabetes Social History Advance Directives: No Advance Directives Information Provided: Yes Advance Directives on File: No Would like to be referred to Claim Approver for info?: No Smoking Status: Current every day smoker What tobacco products do you use: cigarettes Smoking packs per day: 0.5 Smoking cigarettes per day: 10.0 Nicotine containing products detail: Quit smoking 3 days ago How often do you have a drink containing alcohol: never 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 in last 30 days?: No caffeine: Yes Caffeine use details: pop 1-2 cans daily Highest level of school completed/degree received: high school graduate Spiritual Healthcare Practices: none Voodoo Healthcare Practices: none Cultural Healthcare Practices: none Father Diabetes (Updated 04/10/23 @ 16:22 by Sully Tavarez RN) Diabetes History of anxiety History of depression History of ovarian cyst Hypertension Last menstrual period (LMP) < 10 days ago Pre Anesthesia Exam Airway Exam Dentition: No Problems Mallampati: III Mouth opening: greater than or equal to 3 cm Hyoid to Mentum: greater or equal to 6 cm C-Spine: Normal Neck Anatomy: Normal Jaw Protrusion: Normal: lower incisors can protrude past upper incisors Exiting Airway: None Respiratory Common normals: normal respiratory effort, No retractions and No use of accessory muscles Effort & inspection: able to speak in complete sentences Cardio Common normals: regular rate and regular rhythm Rate: regular rate Rhythm: regular rhythm Meds Home Medications and Allergies Home Medications Medication Instructions Recorded Confirmed Type metoprolol tartrate 25 mg tablet 25 mg ORAL BID blood pressure 06/29/20 04/17/23istory clonidine HCl 0.1 mg tablet 0.1 mg ORAL BID blood pressure 10/22/20 04/17/23 History diclofenac sodium 100 mg 100 mg ORAL DAILY arthritis pain 10/22/20 04/10/23 History tablet,extended release 24 hr omeprazole 20 mg capsule,delayed 20 mg ORAL DAILY gerd 10/22/20 04/10/23 History release amlodipine 5 mg tablet 5 mg ORAL DAILY blood pressure 04/14/21 04/17/23 History lovastatin 20 mg tablet 20 mg ORAL DAILY cholesterol 04/14/21 04/10/23 History benazepril 20 1 tablet ORAL DAILY blood pressure 06/02/22 04/17/23 History mg-hydrochlorothiazide 25 mg tablet cholecalciferol (vitamin D3) 50 2,000 unit ORAL DAILY supplement 06/02/22 04/10/23 History mcg (2,000 unit) tablet dulaglutide 0.75 mg/0.5 mL 0.75 mg subcut MO diabetes 06/02/22 04/17/23 History subcutaneous pen injector (Trulicity) empagliflozin 25 mg tablet 25 mg ORAL DAILY diabetes 06/02/22 04/17/23 History (Jardiance) ergocalciferol (vitamin D2) 1,250 50,000 unit ORAL MO supplement 06/02/22 04/10/23 History mcg (50,000 unit) capsule metformin 500 mg tablet 1,000 mg ORAL BID dmt2 06/02/22 04/17/23 History cyclobenzaprine 5 mg tablet 5 mg ORAL BID PRN muscle spasm #10 01/03/23 04/10/23Rx tabs Allergies Allergy/AdvReac Type Severity Reaction Status Date / Time hydromorphone [From Dilaudid] AdvReac Itching Verified 04/10/23 16:21 Obstetrical History History : 2 Para: 2 Pre Anesthesia Results Vital Signs Height: 1.65 m Weight: 105 kg BMI: 38.5 Labs Labs: Laboratory Results - last 24 hr 04/17/23 08:20 Glucometer 144 H Anesthesia Plan Plan Type of Anesthesia Planned:: Monitored Anesthesia Care Monitors: Standard Anesthesia Risk ASA Physical Status: ASA 3 Aspiration risk: No Consent Consent: Risk/Benefit of anesthesia plan & blood product discussed Patient/Family understand and agree upon risks vs benefits of anesthesia: Yes Documented By: Tree Reardon D.O. 04/17/23 083 8 Signed By: <Electronically signed by Tree Reardon D.O.> 04/17/23 0841 [facility] Work Phone: Progress note Author Cata Boss [facility] May 15, 2023 10:15am Note Date/Time May 15, 2023 10:15am [place] [address] Post Anesthesia Note Signed Patient: Amy Naidu MR#: [id number] : 1975 Acct: [id number] Age/Sex: 48 / F ADM Date: 4 1015 Loc: [facility]. Attending Dr: Roman Breaux D.O. cc: Cata Boss M.D.~ Anesthesia Post Op Evaluation Procedure Procedure: Procedures Operation Date: 05/15/23 08:30 Actual Procedure Side Surgeon p COLONOSCOPY Left Roman Breaux DO Post Anesthesia Criteria 1.Patient is awake, alert, oriented to person and place or has returned to his/her original LOC: Patient met criteria 2.The patient's blood pressure is within 20% of the preoperative values with therange: 100/50-190/90. (EXCEPTION: Pediatric patients 20-40%): Patient met criteria 3. The patient's pulse is within 20% of the preoperative values and rhythm is unchanged from the preoperative rhythm.: Patient met criteria 4. The above hemodynamic criteria have remained stable and within the accepted parameters for at least 30 min for inpatients and 1 hr for outpatients after thelast dose of sedation.: Patient met criteria 5.The respiratory rate is 1-24 inclusive. No airway support is required and no signs of respiratory distress are present.: Patient met criteria 6. Oxygen saturation is greater than or equal to 94% with no more than 3L/min nasal cannula or 30% face mask OR patient is back to his/her baseline of less than 94%.: Patient met criteria 7a. The above respiratory criteria have remained stable and in the accepted parameter for at least 30 min for inpatients and 1 hour for outpatients after the last dose of sedation.: Patient met criteria 7b. The above respiratory criteria have remained stable and in the accepted parameter for at least 2 hours for patients who have received flumazenil or naloxone.: Patient met criteria 8. Temperature is 98.6 to 101.3 degrees fahrenheit inclusive: Patient met criteria 9. The patient is not experiencing more than minimal nausea and vomiting.: Patient met criteria 10. The patient has optimal pain control and is experiencing minimal pain.: Patient met criteria 11. The operative area site is appropriate without signs of excessive or abnormal bleeding.: Patient met criteria Documented By: Cata Boss M.D. 05/15/23 1 015 Signed By: <Electronically signed by Cata Boss M.D.> 05/15/23 1015 [facility] Work Phone: Reason for referral (narrative)No reason for referral information available[facility] Work Phone: Summary Purpose Family History No Family History Records Found Relationship Condition Age at Onset Recorded Date/T maria c Not Specified Diabetes mellitus Unknown Advance Directives No Advanced Directives Records Found Advance Directive Response Recorded Date/ Time Advance Directives No April 14, 2021 10:02am Health Care Proxy No November 13, 2 021 2:13pm Advance Directive Response Recorded Date/ Time Advance Directives No January 06, 2023 1:16am Health Care Proxy No November 13, 2 021 3:13pm Advance Directive Response Recorded Date/ Time Advance Directives No March 2:15pm Health Care Proxy No November 13, 2 021 2:13pm Advance Directive Response Recorded Date/ Time Advance Directives No June 05 1:55pm Health Care Proxy No November 13, 2 021 2:13pm Advance Directive Response Recorded Date/ Time Living Will No July 07, 2024 12:02pm Do you have a Healthcare Power of Rn Ccu? No July 07, 2024 12:02pm Chief Complaint and Reason for Visit Chief Complaint Headache Headache lower back pain lower back pain Chief Complaint lower back pain lower back pain lower back pain UTI Symptoms Left flank pain, dizzy, vomiting Left flank pain, dizzy, vomiting Reason for Visit Low back pain Chief Complaint lower back pain lower back pain lower back pain UTI Symptoms Left flank pain, dizzy, vomiting Left flank pain, dizzy, vomiting Left flank pain, dizzy, vomiting N92.1 N92.1 Reason for Visit Low back pain Chief Complaint lower back pain lower back pain lower back pain UTI Symptoms Left flank pain, dizzy, vomiting Left flank pain, dizzy, vomiting Left flank pain, dizzy, vomiting N92.1 N92.1 New Pt-Colonoscopy Reason for Visit Low back pain Chief Complaint lower back pain lower back pain lower back pain UTI Symptoms Left flank pain, dizzy, vomiting Left flank pain, dizzy, vomiting Left flank pain, dizzy, vomiting N92.1 N92.1 New Pt-Colonoscopy uti symptoms POSITIVE COLOGUARD Reason for Visit Low back pain Abdominal pain Diverticulosis Hepatic steatosis Positive colorectal cancer screening using Cologuard test Acute cystitis with hematuria Dysuria Positive colorectal cancer screening using Cologuard test Chief Complaint lower back pain lower back pain lower back pain UTI Symptoms Left flank pain, dizzy, vomiting Left flank pain, dizzy, vomiting Left flank pain, dizzy, vomiting N92.1 N92.1 New Pt-Colonoscopy uti symptoms POSITIVE COLOGUARD POSITIVE COLOGUARD POSITIVE COLOGUARD, POOR PREP Reason for Visit Low back pain Abdominal pain Diverticulosis Hepatic steatosis Positive colorectal cancer screening using Cologuard test Acute cystitis with hematuria Dysuria Positive colorectal cancer screening using Cologuard test Chief Complaint UTI Symptoms Left flank pain, dizzy, vomiting Left flank pain, dizzy, vomiting Left flank pain, dizzy, vomiting N92.1 N92.1 New Pt-Colonoscopy uti symptoms POSITIVE COLOGUARD POSITIVE COLOGUARD POSITIVE COLOGUARD, POOR PREP POSITIVE COLOGUARD, POOR PREP POSITIVE COLOGUARD, POOR PREP Scope 2 week Reason for Visit Low back pain Abdominal pain Diverticulosis Hepatic steatosis Positive colorectal cancer screening using Cologuard test Acute cystitis with hematuria Dysuria Positive colorectal cancer screening using Cologuard test Diverticulosis Hyperplastic colon polyp Chief Complaint Admit Date EAR PROBLEM July 07, 2024 11:5 3am Additional Source Comments INFORMATION SOURCE (unrecogn ized section and content) DATE CREATED AUTHOR 06/25/2019 [facility] DATE CREATED AUTHOR AUTHOR'S ORGANIZ ATION 07/01/2020 [facility] DATE CREATED AUTHOR AUTHOR'S ORGANIZ ATION 05/27/2021 [facility] DATE CREATED AUTHOR AUTHOR'S ORGANIZ ATION 06/10/2023 [facility] DATE CREATED AUTHOR AUTHOR'S ORGANIZ ATION 07/13/2024 [facility] Goals (unrecognized section and content) Goals may be documented in a n alternate sectionGoals may be documented in an alternate sectionGoals may be documented in an alternate sectionGoals may be documented in an alternate sectionGoals may be documented in an alternate sectionGoals may be documented in an alternate sectionGoals may be documented in an alternate sectionGoals may be documented in an alternate sectionGoals may be documented in an alternate section Care Teams (unrecognized sec tion and content) Team Status: Active Member Role Status Dates Gus Block Primary Care Provider Active Team Status: Active Member Role Status Dates Chago Edwards , DO Primary Care Provider Active ED Provider Emergency Provider Active Gus Dunn MD Attending Provider Active Team Status: Active Member Role Status Dates Chago Palak Edwards , DO Primary Care Provider Active Solo Sanchez , DO Emergency Provider Active Mathew Taylor MD Attending Provider Active Team Status: Active Member Role Status Dates Chago Palak Edwards , DO Primary Care Provider Active Mani Silvestre , DO Emergency Provider Active Burt Blunt , DO Attending Provider Active Team Status: Active Member Role Status Dates Chago Palak Edwards , DO Primary Care Provider Active Shaunna Whisman Other Provider Active Graham Baum , DO Attending Provider Active Team Status: Active Member Role Status Dates Chago Edwards , DO Primary Care Provider Active Mani Silvestre , DO Emergency Provider Active Álvaro Palomino , DO Attending Provider Active Team Status: Inactive Member Role Status Dates Chago Edwards , DO Primary Care Provider Active Solo Sanchez , DO Attending Provider, Emergency Provider Active Team Status: Inactive Member Role Status Dates Chago Edwards , DO Primary Care Provider Active Shaunna Whisman Attending Provider Active Team Status: Inactive Member Role Status Dates Chago Edwards , DO Primary Care Provider Active Roman Breaux , DO Attending Provider Active Team Status: Inactive Member Role Status Dates Chago Edwards , DO Primary Care Provider Active Tamara Espinosa APRN CNP Attending Provider, Other Prov ider Active Team Status: Inactive Member Role Status Dates Chago Edwards , DO Primary Care Provider Active Nichelle Gil CNP Attending Provider, Emergency Provid er Active Team Status: Inactive Member Role Status Dates Roman Breaux , DO Attending Provider Active Gus Block Primary Care Provider Active Team Status: Inactive Member Role Status Dates Chago Edwards , DO Primary Care Provider Active Sagar Lema CNP Attending Provider, Other Provider Active Team Status: Active Member Role Status Dates Chago Edwards , DO Primary Care Provider Active Team Status: Inactive Member Role Status Dates Chago Palak Edwards , DO Primary Care Provider Active Mani Silvestre , DO Emergency Provider Active Team Status: Active Member Role Status Dates Chago Edwards , DO Primary Care Provider Active Roman Breaux , DO Attending Provider Active Team Status: Active Member Role Status Dates Roman Breaux , DO Attending Provider, Other Prov ider Active [facility] Primary Care Provider Active Team Status: Inactive Member Role Status Dates Gus [place] Primary Care Provider Active Roman Breaux , DO Attending Provider Active Team Status: Active Member Role Status Dates Gus [place] Primary Care Provider Active Roman Breaux , DO Attending Provider Active Team Status: Active Member Role Status Dates Gus [place] Primary Care Provider Active Roman Breaux , DO Attending Provider, Other Prov ider Active Team Status: Active Member Role Status Dates No Primary Care Physician Primary Care Provider Active Team Status: Inactive Member Role Status Dates No Primary Care Physician Primary Care Provider Active Start: July 07, 2024 End: July 07, 2024 Dr. Davis Webb , Emergency Provider Active Start: July 07, 2024 End: July 07, 2024 FOR RECORDS PERTAINING TO PATIENTS WHO ARE OR HAVE BEEN ENROLLED IN A CHEMICAL DEPENDENCY/SUBSTANCEABUSE PROGRAM, SOME INFORMATION MAY BE OMITTED. This clinical summary was aggregated from multiple sources. Caution should be exercised in using it in the provision of clinical care. This summary normalizes information from multiple sources, and as a consequence, information in this document may materially change the coding, format and clinical context of patient data. In addition, data may be omitted in some cases. CLINICAL DECISIONS SHOULD BE BASED ON THE PRIMARY CLINICAL RECORDS. [facility]. provides no warranty or guarantee of the accuracy or completeness of information in this document.
[2024-09-20 11:19] VITALS: BP 124/62; PULSE 78; RESP 19; TEMP 36.6; O2SAT 99
== END 2024-09-20 11:20 | disposition home or self-care (01) ==
PROVIDERS: Emergency Provider Emergency Medicine; Visit Provider Emergency Medicine
DX: E11.620 Type 2 diabetes mellitus with diabetic dermatitis (principal); E11.40 Type 2 diabetes mellitus with diabetic neuropathy, unspecified; F17.210 Nicotine dependence, cigarettes, uncomplicated; Z79.84 Long term (current) use of oral hypoglycemic drugs
CPT/HCPCS: 80053; 85025; 86780; 99282; A4216

== ENCOUNTER → 2024-12-06 | Outpatient (CLI) | payer MEDICAID, SELFPAY ==
[2024-12-06 18:47] LABS: Hepatitis C Antibody Nonreactive (Nonreactive)
== END | disposition home or self-care (01) ==
PROVIDERS: Referring Provider Physician Assistant Medical; Visit Provider Physician Assistant Medical
DX: L43.8 Other lichen planus (principal)
CPT/HCPCS: 36415; 86803

== ENCOUNTER 2025-01-19 09:21 | Emergency (ER) | payer MEDICAID, SELFPAY ==
[2025-01-19 09:22] VITALS: BP 142/89; PULSE 82; RESP 18; TEMP 36.6; O2SAT 100
--- OUTSIDE RECORDS SUMMARY | 2025-01-19 09:53 | XMS RPT_ITS | CCD ---
Demographics Address [address] [place] [address] Home Phone Mobile Phone Preferred Language en Marital Status Spiritism Affiliation Unknown Race White Ethnic Group Not or Lati no Author Organization [facility] Care Team Providers Care Geospatial Technician Name Role Phone KALI MAZARIEGOS Attending Unavailable PERI, AYAD Primary Care Unavailable EDWARDS CHAGO EDWARDS [place]~[id number] Attending Unavailable CHAGO BEST [place]~[id number] Attending Unavailable PERI, AYAD Primary Care Unavailable EDWARDSCHAGO REYNOLDS [place]~[id number] Primary Care Unavailable HEATHER SOTO Attending Unavailable CHAGO BEST [place]~[id number] Attending Unavailable CHAGO BEST [place]~[id number] Referring Unavailable PERI, AYAD Primary Care Unavailable EDWARDS CHAGO EDWARDS [place]~[id number] Attending Unavailable EDWARDS CHAGO EDWARDS [place]~[id number] Referring Unavailable PERI, AYAD Primary Care Unavailable DO Naeem Chago Palak Primary Care Provider MD Julianne Carroll Attending Provider [phone] DO Loc Dey Attending Provider [phone] DO Loc Dey Emergency Provider DO Álvaro Palomino Attending Provider DO Renetta Edwardss Palak Primary Care Provider DO Solo Sanchez Emergency Provider Provider, ED Emergency Provider Unavailable MD Gus Dunn Attending Provider DO Renetta Edwardss Palak Primary Care Provider DO Solo Sanchez Attending Provider DO Solo Sanchez Emergency Provider [phone] MD Mathew Taylor Attending Provider Provider, ED Emergency Provider Unavailable MD Gus Dunn Attending Provider [phone] MARCOS Espinosa Attending Provider [phone] AMRCOS Espinosa Other Provider [phone] DO Nirmala Mani Emergency Provider DO Álvaro Palomino Attending Provider NADYA Gil Attending Provider [phone] AreNADYA crenshaw Emergency Provider [phone] DO Mani Silvestre Emergency Provider DO Burt Blunt Attending Provider [phone] Shaunna Estevez Attending Provider [phone] Shaunna Estevez Other Provider DO Graham Baum Attending Provider DO Chago Edwards Primary Care Provider DO Solo Sanchez Attending Provider [phone] DO Solo Sanchez Emergency Provider [phone] MD Mathew Taylor Attending Provider [phone] MARCOS Espinosa Attending Provider MARCOS Espinosa Other Provider [phone] NADYA Gil Attending Provider AreNADYA crenshaw Emergency Provider DO Mani Silvestre Emergency Provider [phone] DO Burt Blunt Attending Provider DO Álvaro Palomino Attending Provider [phone] Shaunna Estevez Attending Provider [phone] Shaunna Estevez Other Provider DO Graham Baum Attending Provider [phone] DO Roman Breaux Attending Provider NADYA Lema Attending Provider [phone] NADYA Lema Other Provider Gus Block Primary Care Provider Unavailabl e DO Solo Sanchez Attending Provider [phone] DO Solo Sanchez Emergency Provider Namita, DO Owens Other Provider [phone] DO Chago Edwards Primary Care Provider Roman Breaux Attending Unavailable Sagar Lema Attending Unavailable Dittenhofer, Roman Consulting Unavailable Tree [...] Tamara Attending Unavailable Eizman, Tamara Consulting Unavailable Sagar Lema Attending Unavailable Torey, Sagar Consulting Unavailable Dittenhofer, Roman Attending Unavailable Dittenhofer, Roman Attending Unavailable Dittenhofer, Roman Attending Unavailable WhismShaunna marquez Consulting Unavailable Graham Baum Attending Unavailable Burt Blunt Attending Unavailable Álvaro Palomino Attending Unavailable Care Physician, No Primary Primary Care Provider Unavailable Dr. Davis Webb DO Emergency Provider Dr. Davis Webb DO Attending Provider Dr. Kerry Rutherford DO Emergency Provider Berto ATKINSON, Carter Primary Care Provider [phone] ERICK CABRERA Primary Care Unavailable Ethan Nielson Attending Unavailable Ethan Nielson Referring Unavailable Care Physician, No Primary Primary Care Unava ilable Davis Webb Attending Unavailable Care Physician, No Primary Primary Care Unava ilable Kerry Rutherford Attending Unavailable Care Physician, No Primary Primary Care Physicia n Unavailable Dr. Kerry Rutherford DO Attending Physician Dr. Kerry Rutherford DO Emergency Department Physi bhargavi CARTER THOMSON Primary Care Physician Unavailab Ethan Jackson Attending Physician [phone] Ethan Nielson Referring Provider [phone] FARHEEN EDWARDS Attending Unavailable CARTER THOMSON Primary Care Unavailable FARHEEN EDWARDS Attending Unavailable CARTER THOMSON Primary Care Unavailable MAKI VELA Attending Unavailable CARTER THOMSON Primary Care Unavailable Allergies Allergy Classification Reported Allergen(s) Allergy Type Date of Onset Reaction(s) Facility (20 sources) HYDROmorphone; Translations: [HYDROMORPHONE] Drug Allergy 12-17-2021 Rash [facility] Repository (14 sources) Sertraline; Translations: [SERTRALINE] Drug Allergy 09-27-2024 [facility] Repository Medications Current Medications Medication Drug Class(es) Dates Sig (Normalized) Sig (Original) amLODIPine 10 mg oral tablet (20 sources) Dihydropyridine Calcium Channel Scott Start: 12-24-2024 take 1 tablet by mouth once daily amLODIPine (Norvasc) 10 MG tablet Take 1 tablet (10 mg) by mouth daily. 60 tablet 12/24/2024 Active Start: 09-29-2024 End: 12-20-2024 take 1 tablet by mouth once daily amLODIPine (Norvasc) 10 MG tablet Take 1 tablet (10 mg) by mouth daily. 60 tablet 09/29/2024 12/20/2024 Discontinued (Reorder) Start: 04-14-2021 take 5 mg by mouth once daily Amlodipine Active 5 MG ORAL DAILY April 14, 2021 12:00am Start: 04-14-2021 take 1 mg by mouth once daily Amlodipine Active MG ORAL DAILY April 14, 2021 12:00am amoxicillin 875 mg / clavulanate 125 mg oral tablet (3 sources) Penicillin-class Antibacterial Start: 07-07-2024 atorvastatin 40 mg oral tablet (8 sources) HMG-CoA Reductase Inhibitor Start: 12-13-2024 End: 02-11-2025 take 1 tablet by mouth once daily atorvastatin (Lipitor) 40 MG tablet Indications: Steatosis of liver , Type 2 diabetes mellitus with hyperglycemia, without long-term current use of insulin (HCC) Take 1 tablet (40 mg) by mouth daily. 60 tablet 1 12/13/2024 02/11/2025 Active Start: 12-13-2024 End: 12-13-2024 take 2 tablets by mouth once daily atorvastatin (Lipitor) 20 MG tablet Indications: Steatosis of liver , Type 2 diabetes mellitus with hyperglycemia, without long-term current use of insulin (HCC) Take 2 tablets (40 mg) by mouth daily. 60 tablet 1 12/13/2024 12/13/2024 Discontinued benazepril hydrochloride 20 mg / hydroCHLOROthiazide 25 mg oral tablet (7 sources) Thiazide Diuretic, Angiotensin Converting Enzyme Inhibitor Start: 06-02-2022 take 1 tablet by mouth once daily Benazepril-Hydrochlorothiazide Active 1 TABLET ORAL DAILY June 02, 2022 12:00am cetirizine hydrochloride 10 mg oral tablet (10 sources) Histamine-1 Receptor Antagonist Start: 09-20-2024 take 1 tablet by mouth once daily Start: 10-22-2020 End: 06-02-2022 take 10 mg by mouth once daily Cetirizine Discontinued 10 MG ORAL DAILY October 21, 2020 11:00pm June 02, 2022 9:05pm cholecalciferol 0.05 mg oral capsule (20 sources) Vitamin D Start: 09-29-2024 End: 09-29-2024 take 1 capsule by mouth once daily cholecalciferol (Vitamin D-3) 50 MCG (1999 UT) capsule Take 1 capsule (50 mcg) by mouth daily. 60 capsule 2 09/29/2024 Active Start: 06-02-2022 take 2000 [IU] by mo [facility] once daily Cholecalciferol (Vitamin D3) Active 2000 UNIT ORAL DAILY June 02, 2022 12:00am clobetasol propionate 0.0005 mg/mg topical ointment (2 sources) Corticosteroid Start: 09-20-2024 cloNIDine hydrochloride 0.1 mg oral tablet (20 sources) Central alpha-2 Adrenergic Agonist Start: 10-22-2020 End: 10-11-2024 take 0.1 mg by mouth twice daily Clonidine Hcl Active 0.1 MG ORAL TWICE A DAY October 21, 2020 11:00pm Start: 06-29-2020 End: 11-11-2020 take 1 mg by mouth in the evening Clonidine Hcl Discontinued MG ORAL In the EVENING June 28, 2020 11:00pm November 11, 2020 12:45pm 24 hr diclofenac sodium 100 mg extended release oral tablet (20 sources) Nonsteroidal Anti-inflammatory Drug Start: 10-25-2024 End: 12-27-2024 take 1 tablet by mouth once daily diclofenac sodium (Voltaren XR) 100 MG 24 hr tablet Take 1 tablet (100 mg) by mouth daily. 30 tablet 1 12/27/2024 Active Start: 10-22-2020 take 100 mg by mouth once glenys y Diclofenac Sodium Active 100 MG ORAL DAILY October 21, 2020 11:00pm End: 10-25-2024 take 2 tablets by mouth once daily diclofenac (Cataflam) 50 MG tablet Take 100 mg by mouth daily. 10/25/2024 Discontinued dulaglutide (20 sources) GLP-1 Receptor Agonist Start: 12-13-2024 inject 3 mg by subcutaneous injection every week dulaglutide (Trulicity) 3 MG/0.5ML Indications: Type 2 diabetes mellitus with hyperglycemia, without long-term current use of insulin (HCC) Inject 3 mg under the skin 1 (one) time per week. 4 each 1 12/13/2024 Active Start: 09-29-2024 End: 12-13-2024 inject 1.5 mg by subcutaneous injection every week dulaglutide (Trulicity) 1.5 MG/0.5ML Inject 1.5 mg under the skin 1 (one) time per week. 4 Pen 2 09/29/2024 12/13/2024 Discontinued Start: 06-02-2022 Dulaglutide (T rulicity) 0.75 mg/0.5 mL pen injector Active 0.75 [...] sources) Provitamin D2 Compound Start: 06-02-2022 take 73807 [IU] by mouth every week Ergocalciferol (Vitamin D2) Active 12486 UNIT ORAL WEEKLY June 02, 2022 12:00am Start: 06-02-2022 take 74592 [IU] by mouth once Ergocalciferol (Vitamin D2) Active 76013 UNIT ORAL MO June 02, 2022 12:00am gabapentin 100 mg oral capsule (2 sources) Anti-epileptic Agent Start: 09-20-2024 isopropyl alcohol 0.7 ml/ml medicated pad (18 sources) Start: 12-13-2024 alcohol prep p ads Indications: Type 2 diabetes mellitus with hyperglycemia, without long-term current use of insulin (HCC) Use daily to clean area before checking blood sugars 100 each 3 12/13/2024 Active Alcohol Swabs 70 % pads three times daily. Active modified 24 hr metFORMIN hydrochloride 500 mg extended release oral tablet (20 sources) Biguanide Start: 09-29-2024 End: 09-29-2024 take 1 tablet by mouth twice daily at mealtime metFORMIN, MOD, (Glumetza) 500 MG 24 hr tablet Take 1 tablet (500 mg) by mouth 2 times daily (with meals). Do not crush, chew, or split. 120 tablet 1 09/29/2024 Active Start: 06-02-2022 take 1000 mg by mout h twice daily Metformin Active 1000 MG ORAL TWICE A DAY June 02, 2022 9:07pm will hold for 2 days Start: 11-14-2020 End: 06-02-2022 take 500 mg by mouth twice daily Metformin Discontinued 500 MG ORAL TWICE A DAY 60 November 13, 2020 11:00pm June 02, 2022 9:08pm metoprolol tartrate 25 mg oral tablet (20 sources) beta-Adrenergic Scott Start: 09-29-2024 take 1 tablet by mouth twice daily metoprolol tartrate (Lopressor) 25 MG tablet Take 1 tablet (25 mg) by mouth 2 times daily. 60 tablet 2 09/29/2024 Active Start: 06-29-2020 take 25 mg by mouth twice glenys y Metoprolol Tartrate Active 25 MG ORAL TWICE A DAY June 28, 2020 11:00pm End: 09-29-2024 take 1 tablet by mouth once metoprolol tartrate (Lopre ssor) 25 MG tablet Take 25 mg by mouth Once. 09/29/2024 Discontinued (Reorder) nicotine 2 mg chewing gum (10 sources) Cholinergic Nicotinic Agonist Start: 12-13-2024 End: 04-12-2025 nicotine (Nicoderm, Step 1) 21 MG/24HR patch Indications: Smoking history Place 1 patch on the skin Every 24 hours. 30 patch 3 12/13/2024 04/12/2025 Active Start: 12-13-2024 End: 01-12-2025 nicotine polacrilex (Nicoret te) 2 MG gum Indications: Smoking history Chew 1 each (2 mg) every 3 hours as needed for smoking cessation. 100 each 12/13/2024 01/12/2025 Active omeprazole 20 mg delayed release oral capsule (20 sources) Proton Pump Inhibitor Start: 12-13-2024 take 1 capsule by mouth twice daily before mealtime omeprazole (PriLOSEC) [address] capsule Take 1 capsule (20 mg) by mouth 2 times daily (before meals). Do not crush or chew. 60 capsule 3 12/13/2024 Active Start: 12-10-2024 End: 12-13-2024 take 1 capsule by mouth once daily before breakfast omeprazole (PriLOSEC) [address] capsule Take 1 capsule (20 mg) by mouth every morning (before breakfast). Do not crush, chew, or split. 60 capsule 12/10/2024 12/13/2024 Discontinued (Reorder) Start: 09-29-2024 End: 12-10-2024 take 1 tablet by mouth once daily before breakfast omeprazole OTC (PriLOSEC OTC) 20 MG EC tablet Take 1 tablet (20 mg) by mouth every morning (before breakfast). Do not crush, chew, or split. 60 tablet 09/29/2024 12/10/2024 Discontinued Start: 10-22-2020 take 20 mg by mouth once daily Omeprazole Active 20 MG ORAL DAILY October 21, 2020 11:00pm pioglitazone 15 mg oral tablet (15 sources) Peroxisome Proliferator Receptor alpha Agonist, Peroxisome Proliferator Receptor gamma Agonist, Thiazolidinedione Start: 09-29-2024 End: 09-29-2024 take 1 tablet by mouth once daily pioglitazone (Actos) 15 MG tablet Take 1 tablet (15 mg) by mouth daily. 60 tablet 1 09/29/2024 Active Completed/Discontinued Medications Medication Drug Class(es) Dates Sig (Normalized) Sig (Original) amoxicillin 500 mg oral capsule (8 sources) Penicillin-class Antibacterial Start: 10-22-2020 End: 11-11-2020 take 500 mg by mouth three times daily Amoxicillin Discontinued 500 MG ORAL THREE TIMES A DAY 30 October 21, 2020 11:00pm November 11, 2020 [...] 21, 2020 11:00pm June 02, 2022 9:05pm 24 hr lovastatin 40 mg extended release oral tablet (20 sources) HMG-CoA Reductase Inhibitor Start: 11-18-2024 End: 12-13-2024 take 1 tablet by mouth once daily lovastatin (Altoprev) 40 MG 24 hr tablet Indications: Type 2 diabetes mellitus with hyperglycemia, without long-term current use of insulin (HCC) , Steatosis of liver Take 1 tablet (40 mg) by mouth Nightly. Do not crush, chew, or split. 90 tablet 1 11/18/2024 12/13/2024 Discontinued Start: 11-04-2024 End: 11-16-2024 take 1 tablet by mouth once daily lovastatin (Altoprev) 40 MG 24 hr tablet Indications: Type 2 diabetes mellitus with hyperglycemia, without long-term current use of insulin (HCC) , Steatosis of liver Take 1 tablet (40 mg) by mouth Nightly. Do not crush, chew, or split. 90 tablet 1 11/04/2024 11/16/2024 Discontinued (Reorder) Start: 09-29-2024 End: 09-29-2024 take 1 tablet by mouth once daily lovastatin (Altoprev) 40 MG 24 hr tablet Take 1 tablet (40 mg) by mouth Nightly. Do not crush, chew, or split. 60 tablet 1 09/29/2024 Active Start: 04-14-2021 take 20 mg by mouth once daily Lovastatin Active 20 MG ORAL DAILY April 14, 2021 12:00am nitrofurantoin, macrocrystals 25 mg / nitrofurantoin, monohydrate 75 mg oral capsule (11 sources) Nitrofuran Antibacterial Start: 03-26-2023 End: 04-10-2023 take 1 capsule by mouth twice daily at mealtime Nitrofurantoin Monohyd/M-Cryst (Macrobid) 100 mg capsule Discontinued 100 MG ORAL TWICE A DAY 14 10March 26, 2023 12:00am April 10, 2023 4:23pm must administer with a meal/food Start: 12-18-2021 End: 06-02-2022 take 1 capsule by mouth twice daily at mealtime Nitrofurantoin Monohyd/M-Cryst (Macrobid) 100 mg capsule Discontinued 100 MG ORAL TWICE A DAY 14 10December 17, 2021 11:00pm June 02, 2022 9:06pm [...] 200 MG ORAL THREE TIMES A DAY 09 02March 26, 2023 12:00am April 10, 2023 4:23pm predniSONE 20 mg oral tablet (3 sources) Start: 10-11-2024 End: 10-16-2024 take 2 tablets by mouth once daily predniSONE (Deltasone) 20 MG tablet Indications: Palmoplantar pustulosis Take 2 tablets (40 mg) by mouth daily for 5 days. 10 tablet 10/11/2024 10/16/2024 0.25 mg, 0.5 mg dose 1.5 ml semaglutide 1.34 mg/ml pen injector (9 sources) Start: 10-11-2024 End: 12-13-2024 semaglutide (Ozempic) 2 MG/1.5ML solution pen-injector Indications: Type 2 diabetes mellitus with hyperglycemia, without long-term current use of insulin (HCC) , Class 3 severe obesity due to excess calories with body mass index (BMI) of 40.0 to 44.9 in adult, unspecified whether serious comorbidity present Inject 0.25 mg under the skin 1 (one) time per week. 1 each 10/11/2024 12/13/2024 Discontinued Problems Active Problems Problem Classification Problem Date Documented Da te Episodic/Chronic Administrative/social admission (2 sources) First encounter by subject; Translations: [Persons encountering health services in other specified circumstances] 09-29-2024 Episodic Diabetes mellitus with complications (20 sources) Hyperglycemia due to type 2 diabetes mellitus; Translations: [Type 2 diabetes mellitus with hyperglycemia] Onset: 09-27-2024 11-12-2020 Chronic Diseases of mouth; excluding dental (3 sources) Salivary gland finding; Translations: [Other diseases of salivary glands] 07-07-2024 Episodic Diverticulosis and diverticulitis (20 sources) Diverticular disease; Translations: [Diverticulosis of intestine, part unspecified, without perforation or abscess without bleeding] Onset: 03-14-2023 03-16-2023 Chronic Essential hypertension (20 sources) Essential (primary) hypertension; Translations: [Unspecified essential hypertension] Onset: 11-10-2020 Chronic Menstrual disorders (2 sources) Excessive and frequent menstruation with irregular cycle; Translations: [Excessive and frequent menstruation with irregular cycle] Onset: 01-30-2023 Chronic Mycoses (1 source) Candidiasis, unspecified; Translations: [Candidiasis, unspecified] Onset: 03-26-2023 Episodic Nonspecific chest pain (8 sources) Chest pain; Translations: [Chest pain, unspecified] 11-13-2020 Episodic Other and unspecified benign neoplasm (2 sources) Polyp of colon; Translations: [Benign neoplasm of colon] Onset: 06-06-2023 06-06-2023 Episodic Other ear and sense organ disorders (3 sources) Disorder of left external ear; Translations: [Other specified disorders of left external ear] 07-07-2024 Episodic Other gastrointestinal disorders (8 sources) Other fecal abnormalities; Translations: [Abnormal feces] Onset: 03-14-2023 03-14-2023 Episodic Other inflammatory condition of skin (6 sources) Pustular psoriasis of palms and soles; 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] 10-11-2024 Chronic Other inflammatory condition of skin (2 sources) Pustulosis palmaris et plantaris; 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] Onset: 10-11-2024 Chronic Other inflammatory condition of skin (14 sources) Lichen planus; Translations: [Lichen planus, unspecified] Onset: 12-15-2024 10-11-2024 Episodic Other inflammatory condition of skin (1 source) Other lichen planus; Translations: [Other lichen planus] Onset: 12-23-2024 Episodic Other inflammatory condition of skin (2 sources) Lichen planus, unspecified; Translations: [Lichen planus, unspecified] Onset: 10-11-2024 Episodic Other liver diseases (20 sources) Steatosis of liver; Translations: [Fatty (change of) liver, not elsewhere classified] Onset: 03-14-2023 03-16-2023 Chronic Other liver diseases (6 sources) Fatty (change of) liver, not elsewhere classified; Translations: [Other chronic nonalcoholic liver disease] Onset: 03-14-2023 03-14-2023 Chronic Other nervous system disorders (1 source) Mononeuropathy, unspecified; Translations: [Mononeuropathy, unspecified] Onset: 01-03-2023 Chronic Other nutritional; endocrine; and metabolic disorders (4 sources) Severe obesity; Translations: [Class 3 severe obesity due to excess calories with body mass index (BMI) of 40.0 to 44.9 in adult, unspecified whether serious comorbidity present] 10-11-2024 Chronic Other nutritional; endocrine; and metabolic disorders (2 sources) Body mass index (BMI) 40.0-44.9, adult; Translations: [Body mass index (BMI) 40.0-44.9, adult (HCC)] Onset: 10-11-2024 Chronic Other nutritional; endocrine; and metabolic disorders (2 sources) H/O: diabetes mellitus; Translations: [Personal history of other endocrine, nutritional and metabolic disease] 09-20-2024 Episodic Other screening for suspected conditions (not mental disorders or infectious disease) (20 sources) Patient encounter status; Translations: [Encounter for other screening for malignant neoplasm of breast] Onset: 05-15-2023 06-29-2020 Episodic Screening and history of mental health and substance abuse codes (5 sources) Tobacco use and exposure - finding; Translations: [Personal history of nicotine dependence] Onset: 12-13-2024 12-13-2024 Episodic Substance-related disorders (19 sources) Other psychoactive substance dependence, uncomplicated; Translations: [Smoker] Onset: 05-29-2020 09-29-2024 Chronic Unclassified (1 source) Low back pain, unspecified; Translations: [Low back pain, unspecified] Onset: 01-03-2023 Unclassified (1 source) Obesity, class 3 (HCC); Translations: [Obesity, class 3 (HCC)] Onset: 10-11-2024 Past or Other Problems Problem Classification Problem Date Documented Da te Episodic/Chronic Abdominal pain (20 sources) Abdominal pain; Translations: [Unspecified abdominal pain] Onset: 03-14-2023 03-16-2023 Episodic Allergic reactions (15 sources) Inflammatory dermatosis; Translations: [Dermatitis, unspecified] Onset: 09-27-2024 09-20-2024 Episodic Coma; stupor; and brain damage (14 sources) Somnolence; Translations: [Hypersomnia, unspecified] Onset: 09-27-2024 Episodic Genitourinary symptoms and ill-defined conditions (18 sources) Dysuria; Translations: [Dysuria] Onset: 01-03-2023 03-26-2023 Episodic Hypertension with complications and secondary hypertension (20 sources) Hypertensive emergency; Translations: [Hypertensive emergency] Onset: 09-27-2024 Resolved: 12-15-2024 11-11-2020 Chronic Malaise and fatigue (16 sources) Other fatigue; Translations: [Other malaise and fatigue] Onset: 09-27-2024 Episodic Nausea and vomiting (1 source) Nausea with vomiting, unspecified; Translations: [Nausea with vomiting, unspecified] Onset: 01-05-2023 Episodic Other aftercare (1 source) Encounter for therapeutic drug level monitoring; Translations: [Encounter for therapeutic drug level monitoring] Onset: 05-29-2020 Episodic Other and unspecified benign neoplasm (14 sources) Hyperplastic polyp of large intestine; Translations: [Polyp of colon] Onset: 06-06-2023 06-06-2023 Episodic Other ear and sense organ disorders (1 source) Otalgia, left ear; Translations: [Otalgia, left ear] Onset: 07-11-2024 Episodic Other gastrointestinal disorders (16 sources) Stool DNA-based colorectal cancer screening positive; Translations: [Other fecal abnormalities] Onset: 03-14-2023 03-16-2023 Episodic Other hematologic conditions (20 sources) Raised cardiac enzyme or marker; Translations: [Other specified abnormalities of plasma proteins] Onset: 09-27-2024 11-11-2020 Episodic Other skin disorders (17 sources) Eruption; Translations: [Rash and other nonspecific skin eruption] Onset: 09-25-2024 09-27-2024 Episodic Other skin disorders (3 sources) Rash and other nonspecific skin eruption; Translations: [Rash and other nonspecific skin eruption] Onset: 09-25-2024 Episodic Spondylosis; intervertebral disc disorders; other back problems (19 sources) Low back pain; Translations: [Chronic lumbosacral pain] Onset: 01-03-2023 01-03-2023 Episodic Unclassified (1 source) Obesity, class 3 (HCC); Translations: [Obesity, class 3 (HCC)] Onset: 10-11-2024 Urinary tract infections (17 sources) Acute cystitis with hematuria; Translations: [Acute cystitis] Onset: 03-26-2023 03-26-2023 Episodic Results Test Name Value Interpretation Reference Range Facility 36on 12-27-2024 36 Last office visit: 12/13/2024 Next office visit: 02/07/2025 [facility] 36on 12-23-2024 36 Last office visit: 12/13/24 Next office visit: 02/07/25 [facility] Progress Noteon 12-15-2024 Progress Note -BP elevated today. Patient has been taking metoprolol tartrate once daily. Will have her take this twice daily and plan to recheck BP at next visit. Normal [facility] Progress Note -lovastatin not covered by insurance. Will switch to atorvastatin Normal [facility] Progress Note -discussed smoking cessation. Agreeable to trying nicotine replacement products. Defers Chantix at this time [facility] Progress Note -ozempic was not covered. Increase Trulicity to 3 mg weekly. Recheck A1c at next visit. Normal [facility] Progress Note -seen by dermatology. Has upcoming appointment. [facility] Office Visiton 12-13-2024 Follow-up visit [id number] Amy Naidu 1975 F Date Provider Department Center 12/13/2024 [id number] THOMSON [facility] P None Chart Close Cosign Accepted by: MAKI VELA[JEDWARDS] Chart Close Cosign Accepted on: MonDec 16, 2024 9:25 AM Family History Problem Relation Age of Onset Arthritis Mother Hypertension Mother Diabetes Father Hypertension Father Family Status - Relation Status Age at Mother Father Level of Service:82786 [place] OFFICE/OUTPATIENT ESTABLISHED LOW MDM 20 MIN Reason for Visit and Comments: Follow-up [118042] - Dm, rash check up/dermatology, medications issues Normal [facility] Progress Noteon 12-13-2024 Progress Note Pt asked if they have been to specialist,been in ER /hospitalized or had testing since last visit. Yes, [facility] and labs Patient was able to ambulate safely to the examination room. Provider was not notified of possible fall risk Normal [facility] Progress Note [facility] [address] [place] [address] [facility] [address] Dept: [phone] Dept Loc: [phone] Visit type: Established patient Reason for Visit: Follow-up (Dm, rash check up/dermatology, medications issues) Assessment and Plan 1. Type 2 diabetes mellitus with hyperglycemia, without long-term current use of insulin (HCC) Assessment & Plan: -ozempic was not covered. Increase Trulicity to 3 mg weekly. Recheck A1c at next visit. Orders: - dulaglutide (Trulicity) 3 MG/0.5ML; Inject 3 mg under the skin 1 (one) time per week., Starting Mon12/13/2024, Normal - alcohol prep pads; Use daily to clean area before checking blood sugars, Normal - Lancets Thin misc; Testing once a day, Normal - glucose blood test strip; Test once a day, Normal - pen needle 31G X 8 MM misc; Use as instructed, Normal - atorvastatin (Lipitor) 40 MG tablet; Take 1 tablet (40 mg) by mouth daily., Starting Mon12/13/2024, Until Mon02/11/2025, Normal 2. Steatosis of liver Assessment & Plan: -lovastatin not covered by insurance. Will switch to atorvastatin Orders: - atorvastatin (Lipitor) 40 MG tablet; Take 1 tablet (40 mg) by mouth daily., Starting Mon12/13/2024, Until Mon02/11/2025, Normal 3. Smoking history - nicotine polacrilex (Nicorette) 2 MG gum; Chew 1 each (2 mg) every 3 hours as needed for smoking cessation., Starting Mon12/13/2024, Until Mon01/12/2025 at 2359, Normal - nicotine (Nicoderm, Step 1) 21 MG/24HR patch; Place 1 patch on the skin Every 24 hours., Starting Mon12/13/2024, Until 04/12/2025, Normal 4. Encounter for screening mammogram for malignant neoplasm of breast - Bilateral screening mammogram with tomosynthesis 5. Lichen planus Assessment & Plan: -seen by dermatology. Has upcoming appointment. 6. Smoker Assessment & Plan: -discussed smoking cessation. Agreeable to trying nicotine replacement products. Defers Chantix at this time 7. Essential hypertension Assessment & Plan: -BP elevated today. Patient has been taking metoprolol tartrate once daily. Will have her take this twice daily and plan to recheck BP at next visit. Patient was involved and agreeable in shared decision making. Follow up in about 6 weeks (around 01/24/2025) for DM/A1c. Subjective HPI Amy Naidu is a 49 y.o. female patient that presents today for follow up. T2DM Weight Ozempic was ordered at last visit, but this was not covered by insurance. She is currently on Trulicity 1.5 mg weekly and metformin 500 mg BID. She has been on steroids for her lichen planus. She is planning on following up with her coding manager for different medication. She had an eye exam at [facility] recently. Hypertension She reports improvement in the clonidine. However, she has only been taking metoprolol once a day. Smoking Continues to smoke 0.5-1 pack daily. She has tried nicotine patches in the past but these were not sticky enough. Lichen planus rash is healing well after starting steroids. Review of Systems Respiratory: Negative for shortness of breath. Cardiovascular: Negative for chest pain. Gastrointestinal: Negative for constipation and diarrhea. Medications reviewed Medical history reviewed Allergies reviewed Objective BP (!) 156/100 Comment: manual Pulse 78 Temp 36.5 ?C (97.7 ?F) (Temporal) Ht 5' 5 (1.651 m) Wt 243 lb 8 oz (110 kg) LMP 06/02/2023 (Approximate) BMI 40.52 kg/m? Last 3 weights: Wt Readings from Last 3 Encounters: 12/13/24 243 lb 8 oz (110 kg) 10/11/24 243 lb 6.4 oz (110 kg) 09/27/24 245 lb (111 kg) Physical Exam Constitutional: General: She is not in acute distress. Appearance: She is not ill-appearing. Cardiovascular: Rate and Rhythm: Normal rate and regular rhythm. Pulses: Normal pulses. Heart sounds: Normal heart sounds. No murmur heard. Pulmonary: Effort: Pulmonary effort is normal. No respiratory distress. Breath sounds: Normal breath sounds. No wheezing. Abdominal: General: Bowel sounds are normal. There is no distension. Palpations: Abdomen is soft. Tenderness: There is no abdominal tenderness. Musculoskeletal: Right lower leg: No edema. Left lower leg: No edema. Skin: Findings: Lesion (healing rash on feet and hands) present. Data Reviewed and Summarized Carter [facility] MD [facility] Medicine 12/15/24 4:48 PM [facility] Progress Note INDIRECT SUPERVISION THIS SERVICE IS TO BE BILLED UNDER THE PRIMARY CARE EXCEPTION (MODIFIER -GE) During or immediately after this visit, I discussed this case with the treating resident. Our discussion included the history obtained by the resident, the resident's exam findings, and the resident's treatment plan. The resident's note reflects the information we discussed, and I agree with the resident's assessment and treatment plan. [facility] 36on 12-09-2024 36 Last office visit: 10/11/24 Next office visit: 12/13/24 [facility] Hepatitis C Antibodyon 12-06 Hepatitis C Ab Non-Reactive Normal Nonreactive [facility] Comment on above: Result Comment: Reac tive: Presumptive evidence of antibodies to HCV. Follow CDC recommendations for supplemental testing. Non-Reactive: Antibodies to HCV were not detected; does not exclude the possibility of exposure to HCV Reactive Results are presumptive evidence of antibodies to HCV. Follow CDC recommendations for supplemental testing. Order confirmation testing: HCV Quant by PCR testing - HCVPCR #[id number] Non Reactive: < 0.8 Equivocal: >/= 0.8 to < 1.0 Reactive: >/= 1.0 The CDC requires that a reactive/equivocal HCV antibody result be sent out for confirmation. HCV Quant by PCR testing. Performed By: #### L 3890.6301 #### [facility] [address] [place], [address] Progress Noteon 11-20-2024 Progress Note PA request received from pt's pharmacy for Altoprev. PA initiated. [facility] 36on 11-18-2024 36 Last office visit: 10/11/24 Next office visit: 12/13/24 [facility] [id number] 11-04-2024 [id number] Called office and they are faxing consult over now. [facility] 36on 11-04-2024 36 Requested Prescriptions Signed Prescriptions Disp Refills lovastatin (Altoprev) 40 MG 24 hr tablet 90 tablet 1 Sig: Take 1 tablet (40 mg) by mouth Nightly. Do not crush, chew, or split. Authorizing Provider: PAUL MIRANDA Diagnosis: 1. Type 2 diabetes mellitus with hyperglycemia, without long-term current use of insulin (HCC) 2. Steatosis of liver Paul Miranda MD 12:45 PM 11/04/24 [facility] 36 Last office visit: 10/11/24 Next office visit: 12/13/24 [facility] 36on 10-25-2024 36 Last office visit: 10/11/2024 Next office visit: 12/13/2024 [facility] Progress Noteon 10-15-2024 Progress Note PA requested for Ozempic - PA initiated [facility] 37on 10-11-2024 37 [facility] Office Visiton 10-11-2024 Follow-up visit [id number] Amy Naidu 1975 F Date Provider Department Center 10/11/2024 [id number] THOMSON [facility]ILY P None Chart Close Cosign Accepted by: MAURY DICKERSON[NFLICKINGER] Chart Close Cosign Accepted on: MonOct 21, 2024 4:38 PM Family History Problem Relation Age of Onset Arthritis Mother Hypertension Mother Diabetes Father Hypertension Father Family Status - Relation Status Age at Mother Father Level of Service:29836 [place] OFFICE/OUTPATIENT ESTABLISHED MOD MDM 30 MIN Reason for Visit and Comments: Follow-up [073113] - Follow up for blood pressure, rash, wants to discuss lead testing, and white rash on pt tongue [facility] Progress Noteon 10-11-2024 Progress Note Pt asked if they have been to specialist,been in ER /hospitalized or had testing since last visit. NO Patient was able to ambulate safely to the examination room. Provider was not notified of possible fall risk PT IS ACCOMPANIED BY HER PARTNER TO TODAY'S VISIT. Normal [facility] Progress Note [facility] [address] [facility] [address] Dept: [phone] Dept Loc: [phone] Visit type: Established patient Reason for Visit: Follow-up (Follow up for blood pressure, rash, wants to discuss lead testing, and white rash on pt tongue) Assessment and Plan 1. Type 2 diabetes mellitus with hyperglycemia, without long-term current use of insulin (HCC) - semaglutide (Ozempic) 2 MG/1.5ML solution pen-injector; Inject 0.25 mg under the skin 1 (one) time per week., Starting Mon10/11/2024, Normal 2. 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 Lichen planus - External referral to Dermatology Oral cavity findings and skin findings could be due to palmoplantar pustulosis vs lichen planus vs other. Her dermatology appointment within [facility] isn't scheduled until January. Will place an external referral where she can get a sooner appointment. Recently picked up prescription for Trulicity injections. Will place an order for Ozempic, which could be better for weight loss than Trulicity. If she is not able to roll picker Ozempic due to recently getting the Trulicity injections, advised her to continue Trulicity for one more month then switching over to Ozempic. She does understand that she cannot take both injections at the same time. She will either roll picker the Ozempic OR continue Trulicity, then start Ozempic once she finishes off the rest of her Trulicity. Patient had blood work done at her previous PCP office few months ago. Results under media tab. Patient was involved and agreeable in shared decision making. Follow up in about 8 weeks (around 12/06/2024) for DM-. Subjective HPI Amy Naidu is a 49 y.o. female patient that presents today for follow-up of blood pressure and rash. At last visit, she noted concerns of excessive fatigue especially after taking the clonidine, which she was taking once a day. Due to patient only taking it once a day, this was stopped without tapering off. She has been monitoring her blood pressures at home and remain well-controlled despite stopping the clonidine. She notes significant improvement in her fatigue but symptoms still persist. Diabetes Weight gain Patient's hemoglobin A1c has been stable on her Trulicity and metformin. However, she does note weight gain of 45 pounds since starting Trulicity. She expresses frustration with this weight gain and wants to switch to an alternative where she can lose weight. She recently picked up her prescriptions for the Trulicity injections. In the last couple days, patient has noticed white spots on her tongue. She continues to smoke 1/2 pack daily but trying to cut down. Medications reviewed Medical history reviewed Allergies reviewed Objective BP 120/69 (BP Location: Left arm, Patient Position: Sitting, BP Cuff Size: Large adult) Pulse 71 Temp 36.5 ?C (97.7 ?F) (Temporal) Ht 5' 5 (1.651 m) Wt 243 lb 6.4 oz (110 kg) LMP 06/27/2024 (Within Months) Comment: going through menapause BMI 40.50 kg/m? Last 3 weights: Wt Readings from Last 3 Encounters: 10/11/24 243 lb 6.4 oz (110 kg) 09/27/24 245 lb (111 kg) Physical Exam Constitutional: Appearance: Normal appearance. She is obese. She is not ill-appearing. HENT: Mouth/Throat: Comments: Oral cavity: White lacy pattern on her buccal mucosa, white patches on her tongue Cardiovascular: Rate and Rhythm: Normal rate and regular rhythm. Pulses: Normal pulses. Heart sounds: Normal heart sounds. Pulmonary: Effort: Pulmonary effort is normal. No respiratory distress. Breath sounds: Normal breath sounds. No wheezing. Abdominal: General: Bowel sounds are normal. Palpations: Abdomen is soft. Skin: Findings: Rash present. Comments: Diffuse papules on hands and feet with nail involvement. Data Reviewed and Summarized Carter Thomson MD [facility] Medicine 10/14/24 3:02 PM [facility] Progress Note I saw and evaluated the patient, participating in the laurent portions of the service. I reviewed the resident?s note. I agree with the resident?s findings and plan. Lesions in mouth and skin most consistent with lichen planus Maury Dickerson MD [facility] Progress Noteon 09-29-2024 Progress Note -A1c 6.7% today. At goal. Continue current medications Normal [facility] Progress Note -Recommend cutting down on smoking, offered Chantix or Wellbutrin. Patient defers Chantix or Wellbutrin at this time. She has tried nicotine replacement products in the past which she states were not helpful. Normal [facility] Progress Note -Continue amlodipine 10 mg -Increase metoprolol tartrate to BID -Stop clonidine. Would normally advise slow tapering of clonidine but she is only taking this once a day and seems to be causing her significant fatigue. Unclear why she is on clonidine. -Keep BP logs at home to bring to next visit, advised her to monitor for any rebound hypertension. She will call us or restart taking her clonidine if this becomes a concern. Normal [facility] 37on 09-27-2024 37 Take metoprolol twice a day Normal [facility] HbA1c (Bld) [Mass fraction]o n 09-27-2024 Interpretation and review of laboratory results Abnormal [facility] - Hematology and Cell countson 09-27-2024 HbA1c (Bld) [Mass fraction] 6.7 % Abnormal - 5.7 % [facility] Office Visiton 09-27-2024 Follow-up visit [id number] Amy Naidu 1975 F Date Provider Department Center 09/27/2024 [id number] THOMSON [facility] P None Chart Close Cosign Required by: Farheen Edwards DO[RUBEN] Family History Problem Relation Age of Onset Arthritis Mother Hypertension Mother Diabetes Father Hypertension Father Family Status - Relation Status Age at Mother Father Level of Service:30427 [place] OFFICE/OUTPATIENT NEW LOW MDM 30 MINUTES Reason for Visit and Comments: New Patient [542] - Establish care, Htn and DM2 Normal [facility] Progress Noteon 09-27-[address] [facility] [address] [facility] [address] Dept: [phone] Dept Loc: [phone] Visit type: New patient Reason for Visit: New Patient (Establish care, Htn and DM2) Assessment and Plan 1. Encounter to establish [facility] with new doctor 2. Type 2 diabetes mellitus with hyperglycemia, without long-term current use of insulin ([facility]) Assessment & Plan: -A1c 6.7% today. At goal. Continue current medications Orders: - AMB POC HEMOGLOBIN A1C 3. Skin rash - [facility] 4. Essential hypertension Assessment & Plan: -Continue amlodipine 10 mg -Increase metoprolol tartrate to BID -Stop clonidine. Would normally advise slow tapering of clonidine but she is only taking this once a day and seems to be causing her significant fatigue. Unclear why she is on clonidine. -Keep BP logs at home to bring to next visit, advised her to monitor for any rebound hypertension. She will call us or restart taking her clonidine if this becomes a concern. 5. Smoker Assessment & Plan: -Recommend cutting down on smoking, offered Chantix or Wellbutrin. Patient defers Chantix or Wellbutrin at this time. She has tried nicotine replacement products in the past which she states were not helpful. 6. Other fatigue - Discussed with patient that fatigue and drowsiness is likely due to clonidine rather than metoprolol. She can stop taking clonidine. *Advised patient to sign release of records so we may get her labs and cancer screening results. Patient was involved and agreeable in shared decision making. Follow up in about 6 weeks (around 11/08/2024) for smoking/rash/BP off clonidine. Patient will monitor for refractory hypertension and call our office if BP is persistently high when she stops taking the clonidine. Subjective HPI Amy Naidu is a 49 y.o. female patient that presents today to [facility]. History of type 2 diabetes She is currently on Trulicity, Actos for the last 1.5 years. She reports she was placed on Trulicity due to concerns for weight. She reports that she actually gained weight on the Trulicity. Checks her sugars at home, fasting sugars tend to be 150-160, this morning was 128. She reports her A1c was 7.1% 3 months ago. Hypertension She reports history of refractory hypertension for which she was in the hospital. She reports she was started on clonidine at that time, which she only takes once daily. She is also on amlodipine 10 mg for blood pressure. She does not recall being on any other medications for this. She is not sure why she is on clonidine for blood pressure. She only takes clonidine and metoprolol once a day because she feels sleepy after taking her medications. Both patient and partner report that she falls asleep immediately after taking her medications. She did have a cath 4 years ago, which was normal. According to her partner, she does not snore at night, and denies any witnessed apneic episodes. Skin rash She reports ongoing rash of her feet and hands, she was advised to use a steroid cream and does note some improvement. Past medical history: Hypertension, type 2 diabetes, history of renal stones, last colonoscopy 1 year ago was normal. She had a Pap smear last year which was normal. Surgical history: 2 C-sections. Breast reduction surgery. 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 Smokes half pack daily for the last 20 years. Denies any alcohol use. Denies any illicit drug use. Diet: Patient reports she eats sweets about 1-2 times a week, drinks Pepsi occasionally. She is trying to cut down on her juice intake. Otherwise reports that she tries to eat healthy. For exercise, she reports that she takes the stairs a lot. Family history: Father with history of diabetes and hypertension. Mother with history of hypertension and had a hysterectomy for cervical cancer. Medications reviewed Medical history reviewed Allergies reviewed Objective BP 113/75 Pulse 72 Temp 36.6 ?C (97.9 ?F) (Temporal) Ht 5' 5 (1.651 m) Wt 245 lb (111 kg) LMP 06/27/2024 (Within Months) Comment: going through menapause BMI 40.77 kg/m? Physical Exam Constitutional: General: She is not in acute distress. Appearance: Normal appearance. She is obese. Cardiovascular: Rate and Rhythm: Normal rate and regular rhythm. Pulses: Normal pulses. Heart sounds: Normal heart sounds. Pulmonary: Effort: Pulmonary effort is normal. No respiratory distress. Breath sounds: Normal breath sounds. No wheezing. Abdominal: General: Bowel sounds are normal. There is no distension. Palpations: Abdomen is soft. Tenderness: There is no abdominal tenderness. Musculoskeletal: Right lower leg: No edema. Left lower leg: No edema. Skin: General: Skin is warm and dry. Findi (more content not included)... Normal [facility] Progress Note Patient was able to ambulate safely to the examination room. Provider was not notified of possible fall risk Pt asked if they have been to specialist,been in ER /hospitalized or had testing since last visit. Rash 09/20/24 [facility] Progress Note INDIRECT SUPERVISION THIS SERVICE IS TO BE BILLED UNDER THE PRIMARY CARE EXCEPTION (MODIFIER -GE) During or immediately after this visit, I discussed this case with the treating resident. Our discussion included the history obtained by the resident, the resident's exam findings, and the resident's treatment plan. The resident's note reflects the information we discussed, and I agree with the resident's assessment and treatment plan. [facility] Absolute lymphocyte countOrd ered By: Kerry Rutherford on 09-20-2024 Lymphocytes Auto (Unsp spec) [#/Vol] 2.15 10*3/uL 0.83-4.51 [facility] Absolute neutrophil countOrd ered By: Kerry Rutherford on 09-20-2024 Neutrophils (Bld) [#/Vol] 5.8 10*3/uL 2.0-7.7 [facility] Anion gap in Serum or Plasma Ordered By: Kerry Rutherford on 09-20-2024 Anion gap [Moles/Vol] 11 mmol/L 5-15 [facility] Automated lymphocyte count a s percentage of total leukocytesOrdered By: Kerry Rutherford on 09-20-2024 Lymphocytes/100 WBC Auto (Unsp spec) 24.7 % - [facility] BUN/creatinine ratioOrdered By: Kerry Rutherford on 09-20-2024 Urea nitrogen/Creatinine [Mass ratio] 21.1 mg/mg High - [facility] Basophil percentageOrdered B y: Kerry Rutherford on 09-20-2024 Basophils/100 WBC (Bld) 0.5 % 0-1 [facility] Bilirubin, totalOrdered By: Kerry Rutherford on 09-20-2024 Bilirubin [Mass/Vol] 0.31 mg/dL 0.00-1.30 [facility] CBC W/Diff, Automatedon 09-02 0-2024 Absolute Lymph 2.15 X10 3/uL Normal 0.83-4.51 [facility] Comment on above: Performed By: #### L 509.8002, L500.4050, L100.0100 #### [facility] [address] [place], [address] Absolute Neut 5.8 X10 3/uL Normal 2.0-7.7 [facility] Comment on above: Performed By: #### L 509.8002, L500.4050, L100.0100 #### [facility] [address] [place], [address] Basophils/100 WBC (Bld) 0.5 % Normal 0-1 [facility] Comment on above: Performed By: #### L 509.8002, L500.4050, L100.0100 #### [facility] [address] [place], [address] Eosinophils/100 WBC (Bld) 1.1 % Normal 0-5 [facility] Comment on above: Performed By: #### L 509.8002, L500.4050, L100.0100 #### [facility] [address] [place], [address] Erythrocyte distribution width (RBC) [Ratio] 15.7 % High 11.6-14.6 [facility] Comment on above: Performed By: #### L 509.8002, L500.4050, L100.0100 #### [facility] [address] [place], [address] Hematocrit (Bld) [Volume fraction] 38.9 % Normal 37-47 [facility] Comment on above: Performed By: #### L 509.8002, L500.4050, L100.0100 #### [facility] [address] [place], [address] Hemoglobin (Bld) [Mass/Vol] 12.6 g/dL Normal 12.0-15.0 [facility] Comment on above: Performed By: #### L 509.8002, L500.4050, L100.0100 #### [facility] [address] [place], [address] IG% 0.200 Normal 0.0-0.9 [facility] Comment on above: Result Comment: IG% - Immature Granulocytes (promyelocytes, myelocytes and metamyelocytes) > 1% indicates that a LEFT SHIFT is Present. Performed By: #### L 509.8002, L500.4050, L100.0100 #### [facility] [address] [place], [address] Lymphocytes/100 WBC (Bld) 24.7 % Normal 19-41 [facility] Comment on above: Performed By: #### L 509.8002, L500.4050, L100.0100 #### [facility] [address] [place], [address] MCH (RBC) [Entitic mass] 28.6 pg Normal 27.0-32.0 [facility] Comment on above: Performed By: #### L 509.8002, L500.4050, L100.0100 #### [facility] [address] [place], [address] MCHC (RBC) [Mass/Vol] 32.4 g/dL Normal 32-36 [facility] Comment on above: Performed By: #### L 509.8002, L500.4050, L100.0100 #### [facility] [address] [place], [address] MCV (RBC) [Entitic vol] 88.2 fL Normal 81-99 [facility] Comment on above: Performed By: #### L 509.8002, L500.4050, L100.0100 #### [facility] [address] [place], [address] Monocytes/100 WBC (Bld) 7.3 % Normal 0-10 [facility] Comment on above: Performed By: #### L 509.8002, L500.4050, L100.0100 #### [facility] [address] [place], [address] Neutrophils/100 WBC (Bld) 66.2 % Normal 47-70 [facility] Comment on above: Performed By: #### L 509.8002, L500.4050, L100.0100 #### [facility] [address] [place], [address] Nucleated RBC (Bld) [#/Vol] 0 10*3/uL Normal 0-5 [facility] Comment on above: Performed By: #### L 509.8002, L500.4050, L100.0100 #### [facility] [address] [place], [address] Platelet mean volume (Bld) [Entitic vol] 12.2 fL High 6.2-12.0 [facility] Comment on above: Performed By: #### L 509.8002, L500.4050, L100.0100 #### [facility] [address] [place], [address] Platelets (Bld) [#/Vol] 270 10*3/uL Normal 150-450 [facility] Comment on above: Performed By: #### L 509.8002, L500.4050, L100.0100 #### [facility] [address] [place], [address] RBC (Bld) [#/Vol] 4.41 10*6/uL Normal 4.2-5.4 [place] Comment on above: Performed By: #### L 509.8002, L500.4050, L100.0100 #### [facility] [address] [place], [address] RDW SD 50.8 fl High 35.1-43.9 [facility] Comment on above: Performed By: #### L 509.8002, L500.4050, L100.0100 #### [facility] [address] [place], [address] WBC (Bld) [#/Vol] 8.7 10*3/uL Normal 4.4-11.0 [facility] Comment on above: Performed By: #### L 509.8002, L500.4050, L100.0100 #### [facility] [address] [place], [address] Carbon dioxide, total [Moles /volume] in Central venous bloodOrdered By: Kerry Rutherford on 09-20-2024 CO2 [Moles/Vol] 23.5 mmol/L 21.0-32.0 [facility] Chloride assayOrdered By: Bereket Rutherford on 09-20-2024 Chloride [Moles/Vol] 107 mmol/L 98-108 [facility] Comprehensive Metabolic Prof ilon 09-20-2024 Albumin [Mass/Vol] 4.0 g/dL Normal 3.5-5.0 [facility] Comment on above: Performed By: #### L 509.8002, L500.4050, L100.0100 #### [facility] [address] [place], [address] Albumin/Globulin [Mass ratio] 1.3 {ratio} Normal 0.9-2.4 [facility] Comment on above: Performed By: #### L 509.8002, L500.4050, L100.0100 #### [facility] [address] [place], [address] ALK PHOS 95 U/L Normal 35-104 [facility] Comment on above: Performed By: #### L 509.8002, L500.4050, L100.0100 #### [facility] [address] [place], [address] ALT [Catalytic activity/Vol] 60 U/L High <=34 [facility] Comment on above: Performed By: #### L 509.8002, L500.4050, L100.0100 #### [facility] [address] [place], [address] AST [Catalytic activity/Vol] 35 U/L High <=31 [facility] Comment on above: Performed By: #### L 509.8002, L500.4050, L100.0100 #### [facility] [address] [place], [address] Bilirubin [Mass/Vol] 0.31 mg/dL Normal 0.00-1.30 [facility] Comment on above: Performed By: #### L 509.8002, L500.4050, L100.0100 #### [facility] [address] [place], [address] BUN/CRE 21.1 RATIO High 10-20 [facility] Comment on above: Performed By: #### L 509.8002, L500.4050, L100.0100 #### [facility] [address] [place], [address] Calcium [Mass/Vol] 9.0 mg/dL Normal 7.6-11.0 [facility] Comment on above: Performed By: #### L 509.8002, L500.4050, L100.0100 #### [facility] [address] [place], [address] Chloride [Moles/Vol] 107 mmol/L Normal 98-108 [facility] Comment on above: Performed By: #### L 509.8002, L500.4050, L100.0100 #### [facility] [address] [place], [address] CO2 [Moles/Vol] 23.5 mmol/L Normal 21.0-32.0 [facility] Comment on above: Performed By: #### L 509.8002, L500.4050, L100.0100 #### [facility] [address] [place], [address] Creatinine [Mass/Vol] 0.82 mg/dL Normal 0.70-1.20 [facility] Comment on above: Performed By: #### L 509.8002, L500.4050, L100.0100 #### [facility] [address] [place], [address] ECRCL 105.67 ml/min Normal 50-250 [facility] Comment on above: Performed By: #### L 509.8002, L500.4050, L100.0100 #### [facility] [address] [place], [address] GAP 11 Normal 5-15 [facility] Comment on above: Performed By: #### L 509.8002, L500.4050, L100.0100 #### [facility] [address] [place], [address] GFR/1.73 sq M.predicted among non-blacks MDRD (S/P/Bld) [Vol rate/Area] 89 mL/min/{1.73_m2} Normal >60 [facility] Comment on above: Result Comment: mL/m in/1.73m2 CKD-EPI Creatinine Equation (2020) Performed By: #### L 509.8002, L500.4050, L100.0100 #### [facility] [address] [place], [address] Globulin (S) [Mass/Vol] 3.0 g/dL Normal 2.2-4.2 [facility] Comment on above: Performed By: #### L 509.8002, L500.4050, L100.0100 #### [facility] [address] [place], [address] Glucose [Mass/Vol] 158 mg/dL High 70-99 [facility] Comment on above: Performed By: #### L 509.8002, L500.4050, L100.0100 #### [facility] [address] [place], [address] Potassium [Moles/Vol] 4.0 mmol/L Normal 3.3-5.1 [facility] Comment on above: Performed By: #### L 509.8002, L500.4050, L100.0100 #### [facility] [address] [place], [address] Sodium [Moles/Vol] 141 mmol/L Normal 133-145 [facility] Comment on above: Performed By: #### L 509.8002, L500.4050, L100.0100 #### [facility] [address] [place], [address] T PROT 7.0 g/dL Normal 5.9-8.4 [facility] Comment on above: Performed By: #### L 509.8002, L500.4050, L100.0100 #### [facility] [address] [place], [address] Urea nitrogen [Mass/Vol] 17 mg/dL Normal 4-19 [facility] Comment on above: Performed By: #### L 509.8002, L500.4050, L100.0100 #### [facility] [address] [place], [address] Emergency Department Summary on 09-20-2024 Emergency Department Summary [facility] Medical Records Department [address] [place] [address] Emergency Department Summary 09/20/24 MR#: [id number] Acct: [id number] Name: AMY NAIDU Rep #: [id number] : 1975 49 From: Kerry Rutherford DO PCP: Care Physician,No Primary Status:REG ER Location: ED HPI History of Present Illness Chief Complaint: Rash Informant: patient Narrative Narrative: Patient is a 49-year-old female with history of diabetes mellitus (on weekly Trulicity as well as metformin) and hypertension presenting with rash to her hands and her feet. Been going on for about a month. She feels it is worsening. States it started as small splotches on her hands. She states it is itchy and she has a pins and needle sensation in her feet which is making it very hard for her to sleep. Was seen at urgent care earlier on the course and given some type of cream which does not recall the name of it. She states she ran out of the cream but did not think it was very helpful. Has never had a rash like this before. Was see about 2 months ago for swollen lymph node on her neck. She notes she has had very mild allergy symptoms and has not thought much of it. She denies any fevers. Denies any known history of syphilis or new sexual partners. Denies any other systemic symptoms. Is tried taking Tylenol as well with no relief. Notes her blood sugars have been running a little higher lately. Chart review shows that patient was seen on for left-sided submandibular swelling. Had CT consistent with asymmetric enlargement of left parotid gland with scattered intraparotid nodes, likely reactive. Most consistent with parotitis infectious versus inflammatory etiology. There is also some swelling of the left auricular cartilage which was indeterminant but could be perichondritis. Patient was treated with a course of Augmentin at that time. [facility] Medical History HTN (hypertension) Diabetes mellitus, type II Home Medications ???Medication ???Instructions ???Recorded ???Last Taken ???Type amoxicillin 875 mg-potassium 1 tab PO BID #14 tabs 07/07/24 Unk nown Rx clavulanate 125 mg tablet cetirizine 10 mg tablet (Zyrtec) 10 mg PO DAILY #14 tabs 09/20/24 U nknown Rx clobetasol 0.05 % topical ointment 1 applic topical BID 2 weeks #60 09/20/24 Unknown Rx grams gabapentin 100 mg capsule 100 mg PO BID PRN nerve pain #20 0 09/20/24 Unknown Rx caps Allergy/AdvReac Type Severity Reaction Status Date / Time No Known Allergies Allergy Verified 09/20/24 08:45 Social History Smoking Status: Current some day smoker tobacco type: cigarettes ROS ROS ED Constitutional Constitutional ED: Denies chills or fever(s) ENT ENT ED: Denies sore throat Cardiovascular Cardiovascular: Denies chest pain Respiratory/Chest Respiratory/Chest: Denies cough or dyspnea Gastrointestinal Gastrointestinal: Denies nausea or vomiting Musculoskeletal Musculoskeletal: Denies arthralgias or myalgias Integumentary Reports rash Neurologic Neurologic: Reports paresthesias and other Details: Pins and needle sensation of the feet???new over the past month ; Denies weakness EXAM Physical Exam Const Vital Signs: 09/20/24 08:45 Temperature 98.2 F Temperature Source Oral Pulse Rate 88 Respiratory Rate 16 Blood Pressure 152/109 H Blood Pressure Mean 123 Pulse Ox 97 Oxygen Delivery Method Room Air Positive well nourished and well developed General Appearance ED: well developed and NAD HEENT Reports TM's clear and moist mucous membranes HEENT Narrative: Normal external ears. No pain with palpation of the ears. Subtle lymphadenopathy present of the left submandibular neck. Normal oropharynx. No lesions in the throat noted. Tympanic Membrane ED: Yes TM's clear Eyes PERRL Neck supple Chest Wall inspection of chest normal and palpation of chest normal Resp normal respiratory effort and clear to auscultation bilaterally Cardio regular rate and regular rhythm GI normal to inspection, nondistended, normoactive bowel sounds and non-tender Extremity normal to inspection Extremity Narrative: Mild tenderness in the bilateral feet around the heels. General Extremety ED: Negative for edema General Extremity: Negative for edema Neuro oriented x3 Sensorium / Orientation: alert Skin Skin Narrative: Scattered erythematous rash of the hands (including the palms) and feet (including the soles). There are mixed sizes of lesions in various stages of healing with scaling noted on the hands and the feet. Nonblanching with circumferential lesions that do seem to cluster around the cuticles, slightly raised as well as just throughout the (more content not included)... Normal [facility] Eosinophil percentageOrdered By: Kerry Rutherford on 09-20-2024 Eosinophils/100 WBC (Bld) 1.1 % 0-5 [facility] Erythrocyte distribution wid th ratioOrdered By: Kerry [facility] Erythrocyte distribution width (RBC) [Ratio] 15.7 % High 11.6-14.6 [facility] Erythrocyte distribution wid th standard deviationOrdered By: Kerry Rutherford on 09-20-2024 Erythrocyte distribution width (RBC) [Ratio] 50.8 fl High 35.1-43.9 [facility] Glomerular filtration rate ( GFR) estimation/1.73 sq m using serum, plasma, or whole bOrdered By: Kerry Rutherford on 09-20-2024 GFR/1.73 sq M.predicted among non-blacks MDRD (S/P/Bld) [Vol rate/Area] 89 mL/min/{1.73_m2} >60 [facility] Comment on above: mL/min/1.73m2 CKD-EP I Creatinine Equation (2020) Hematocrit Auto (Bld) [Volum e fraction]Ordered By: Kerry Rutherford on 09-20-2024 Hematocrit (Bld) [Volume fraction] 38.9 % 37-47 [facility] Hemoglobin measurementOrdere d By: Kerry Rutherford on 09-20-2024 Hemoglobin (Bld) [Mass/Vol] 12.6 g/dL 12.0-15.0 [facility] Immature granulocytes/100 WB C Auto (Bld)Ordered By: Kerry Rutherford on 09-20-2024 Immature granulocytes/100 WBC (Bld) 0.200 % 0.0-0.9 [facility] Comment on above: IG% - Immature Granu locytes (promyelocytes, myelocytes and metamyelocytes) > 1% indicates that a LEFT SHIFT is Present. Laboratory - Chemistry and C hemistry - challengeOrdered By: Kerry Rutherford on 09-20-2024 AST [Catalytic activity/Vol] 35 U/L High <32 [facility] MCV (mean corpuscular volume ) determinationOrdered By: Kerry Rutherford on 09-20-2024 MCV (RBC) [Entitic vol] 88.2 fL 81-99 [facility] Mean corpuscular hemoglobin (MCH) determinationOrdered By: Kerry Rutherford on 09-20-2024 MCH (RBC) [Entitic mass] 28.6 pg 27.0-32.0 [facility] Mean corpuscular hemoglobin concentration (MCHC) determinationOrdered By: Kerry Rutherford on 09-20-2024 MCHC (RBC) [Mass/Vol] 32.4 g/dL 32-36 [facility] Mean platelet volume determi nationOrdered By: Kerry Rutherford on 09-20-2024 Platelet mean volume (Bld) [Entitic vol] 12.2 fL High 6.2-12.0 [facility] Monocyte percentageOrdered B y: Kerry Rutherford on 09-20-2024 Monocytes/100 WBC (Bld) 7.3 % 0-10 [facility] Neutrophil percentageOrdered By: Kerry Rutherford on 09-20-2024 Neutrophils/100 WBC (Bld) 66.2 % 47-70 [facility] Nucleated red blood cell per centageOrdered By: Kerry Rutherford on 09-20-2024 Nucleated RBC/100 WBC (Bld) [Ratio] 0 % 0-5 [facility] Platelet countOrdered By: Bereket Rutherford on 09-20-2024 Platelets (Bld) [#/Vol] 270 10*3/uL 150-450 [facility] Potassium measurement (mass/ volume)Ordered By: Kerry Rutherford on 09-20-2024 Potassium (Unsp spec) [Mass/Vol] 4.0 mmol/L 3.3-5.1 [facility] RBC Auto (Bld) [#/Vol]Ordere d By: Kerry Rutherford on 09-20-2024 RBC (Bld) [#/Vol] 4.41 10*6/uL 4.2-5.4 [place] Serum creatinine measurement (mass/volume)Ordered By: Kerry Rutherford on 09-20-2024 Creatinine [Mass/Vol] 0.82 mg/dL 0.70-1.20 [facility] Serum globulin measurementOr dered By: Kerry Rutherford on 09-20-2024 Globulin (S) [Mass/Vol] 3.0 g/dL 2.2-4.2 [facility] Serum glucose measurement (m ass/volume)Ordered By: Kerry Rutherford on 09-20-2024 Glucose [Mass/Vol] 158 mg/dL High 70-99 [facility] Serum or plasma alanine gonzalez otransferase (ALT) measurementOrdered By: Kerry Rutherford on 09-20-2024 ALT [Catalytic activity/Vol] 60 U/L High <35 [facility] Serum or plasma albumin lenny urement (mass/volume)Ordered By: Kerry Rutherford on 09-20-2024 Albumin [Mass/Vol] 4.0 g/dL 3.5-5.0 [facility] Serum or plasma albumin/glob ulin mass ratioOrdered By: Kerry Rutherford on 09-20-2024 Albumin/Globulin [Mass ratio] 1.3 {ratio} 0.9-2.4 [facility] Serum or plasma alkaline husam sphatase measurementOrdered By: Kerry Rutherford on 09-20-2024 ALP [Catalytic activity/Vol] 95 U/L 35-104 [facility] Serum or plasma calcium lenny urement (mass/volume)Ordered By: Kerry Rutherford on 09-20-2024 Calcium [Mass/Vol] 9.0 mg/dL 7.6-11.0 [facility] Serum or plasma urea nitroge n measurement (mass/volume)Ordered By: Kerry Rutherford on 09-20-2024 Urea nitrogen [Mass/Vol] 17 mg/dL 4-19 [facility] Sodium levelOrdered By: Bassam Rutherford on 09-20-2024 Sodium [Moles/Vol] 141 mmol/L 133-145 [facility] Syphilis Antibodieson 2024 Syphilis Abs Non-Reactive Normal Nonreactive [facility] Comment on above: Performed By: #### L 509.8002, L500.4050, L100.0100 #### [facility] [address] [place], [place], [id number] Total proteinOrdered By: Randi Rutherford on 09-20-2024 Protein [Mass/Vol] 7.0 g/dL 5.9-8.4 [facility] White blood cell (WBC) count Ordered By: Kerry Rutherford on 09-20-2024 WBC (Bld) [#/Vol] 8.7 10*3/uL 4.4-11.0 [facility] Absolute lymphocyte countOrd ered By: Elmira Quijano on 07-07-2024 Lymphocytes Auto (Unsp spec) [#/Vol] 2.04 10*3/uL 0.83-4.51 [facility] Absolute neutrophil countOrd ered By: Elmira Quijano on 07-07-2024 Neutrophils (Bld) [#/Vol] 4.8 10*3/uL 2.0-7.7 [facility] Anion gap in Serum or Plasma Ordered By: Elmira Quijano on 07-07-2024 Anion gap [Moles/Vol] 10 mmol/L 08-15 [facility] Automated lymphocyte count a s percentage of total leukocytesOrdered By: Elmira Quijano on 07-07-2024 Lymphocytes/100 WBC Auto (Unsp spec) 27.0 % - [facility] BUN/creatinine ratioOrdered By: Elmira Quijano on 07-07-2024 Urea nitrogen/Creatinine [Mass ratio] 15.8 mg/mg - [facility] Basic Metabolic Profile (BMP )on 07-07-2024 BUN/CRE 15.8 RATIO Normal 01-20 [facility] Comment on above: Performed By: #### L 500.2500, L100.0100 #### [facility] [address] [place], [address] Calcium [Mass/Vol] 8.8 mg/dL Normal 7.6-11.0 [facility] Comment on above: Performed By: #### L 500.2500, L100.0100 #### [facility] [address] [place], [address] Chloride [Moles/Vol] 105 mmol/L Normal 98-108 [facility] Comment on above: Performed By: #### L 500.2500, L100.0100 #### [facility] [address] [place], [address] CO2 [Moles/Vol] 23.3 mmol/L Normal 21.0-32.0 [facility] Comment on above: Performed By: #### L 500.2500, L100.0100 #### [facility] [address] [place], [address] Creatinine [Mass/Vol] 0.77 mg/dL Normal 0.70-1.20 [facility] Comment on above: Performed By: #### L 500.2500, L100.0100 #### [facility] [address] [place], [address] ECRCL 113.47 ml/min Normal 50-250 [facility] Comment on above: Performed By: #### L 500.2500, L100.0100 #### [facility] [address] [place], [address] GAP 10 Normal 5-15 [facility] Comment on above: Performed By: #### L 500.2500, L100.0100 #### [facility] [address] [place], [address] GFR/1.73 sq M.predicted among non-blacks MDRD (S/P/Bld) [Vol rate/Area] 95 mL/min/{1.73_m2} Normal >60 [facility] Comment on above: Result Comment: mL/m in/1.73m2 CKD-EPI Creatinine Equation (2020) Performed By: #### L 500.2500, L100.0100 #### [facility] [address] [place], [address] Glucose [Mass/Vol] 187 mg/dL High 70-99 [facility] Comment on above: Performed By: #### L 500.2500, L100.0100 #### [facility] [address] [place], [address] Potassium [Moles/Vol] 4.1 mmol/L Normal 3.3-5.1 [facility] Comment on above: Performed By: #### L 500.2500, L100.0100 #### [facility] [address] [place], [address] Sodium [Moles/Vol] 138 mmol/L Normal 133-145 [facility] Comment on above: Performed By: #### L 500.2500, L100.0100 #### [facility] [address] [place], [address] Urea nitrogen [Mass/Vol] 12 mg/dL Normal 4-19 [facility] Comment on above: Performed By: #### L 500.2500, L100.0100 #### [facility] [address] [place], [address] Basophil percentageOrdered B y: Elmira Quijano on 07-07-2024 Basophils/100 WBC (Bld) 0.4 % 0-1 [facility] CBC W/Diff, Automatedon 04-0 Absolute Lymph 2.04 X10 3/uL Normal 0.83-4.51 [facility] Comment on above: Performed By: #### L 500.2500, L100.0100 #### [facility] [address] [place], [address] Absolute Neut 4.8 X10 3/uL Normal 2.0-7.7 [facility] Comment on above: Performed By: #### L 500.2500, L100.0100 #### [facility] [address] [place], [address] Basophils/100 WBC (Bld) 0.4 % Normal 0-1 [facility] Comment on above: Performed By: #### L 500.2500, L100.0100 #### [facility] [address] [place], [address] Eosinophils/100 WBC (Bld) 1.5 % Normal 0-5 [facility] Comment on above: Performed By: #### L 500.2500, L100.0100 #### [facility] [address] [place], [address] Erythrocyte distribution width (RBC) [Ratio] 15.0 % High 11.6-14.6 [facility] Comment on above: Performed By: #### L 500.2500, L100.0100 #### [facility] [address] [place], [address] Hematocrit (Bld) [Volume fraction] 38.4 % Normal 37-47 [facility] Comment on above: Performed By: #### L 500.2500, L100.0100 #### [facility] [address] [place], [address] Hemoglobin (Bld) [Mass/Vol] 12.4 g/dL Normal 12.0-15.0 [facility] Comment on above: Performed By: #### L 500.2500, L100.0100 #### [facility] [address] [place], [address] IG% 0.400 Normal 0.0-0.9 [facility] Comment on above: Result Comment: IG% - Immature Granulocytes (promyelocytes, myelocytes and metamyelocytes) > 1% indicates that a LEFT SHIFT is Present. Performed By: #### L 500.2500, L100.0100 #### [facility] [address] [place], [address] Lymphocytes/100 WBC (Bld) 27.0 % Normal 19-41 [facility] Comment on above: Performed By: #### L 500.2500, L100.0100 #### [facility] [address] [place], [address] MCH (RBC) [Entitic mass] 29.0 pg Normal 27.0-32.0 [facility] Comment on above: Performed By: #### L 500.2500, L100.0100 #### [facility] [address] [place], [address] MCHC (RBC) [Mass/Vol] 32.3 g/dL Normal 32-36 [facility] Comment on above: Performed By: #### L 500.2500, L100.0100 #### [facility] [address] [place], [address] MCV (RBC) [Entitic vol] 89.7 fL Normal 81-99 [facility] Comment on above: Performed By: #### L 500.2500, L100.0100 #### [facility] [address] [place], [address] Monocytes/100 WBC (Bld) 7.0 % Normal 0-10 [facility] Comment on above: Performed By: #### L 500.2500, L100.0100 #### [facility] [facility] [address] [place], [address] Neutrophils/100 WBC (Bld) 63.7 % Normal 47-70 [facility] Comment on above: Performed By: #### L 500.2500, L100.0100 #### [facility] [address] [place], [address] Nucleated RBC (Bld) [#/Vol] 0 10*3/uL Normal 0-5 [facility] Comment on above: Performed By: #### L 500.2500, L100.0100 #### [facility] [address] [place], [address] Platelet mean volume (Bld) [Entitic vol] 12.7 fL High 6.2-12.0 [facility] Comment on above: Performed By: #### L 500.2500, L100.0100 #### [facility] [address] [place], [address] Platelets (Bld) [#/Vol] 246 10*3/uL Normal 150-450 [facility] Comment on above: Performed By: #### L 500.2500, L100.0100 #### [facility] [address] [place], [address] RBC (Bld) [#/Vol] 4.28 10*6/uL Normal 4.2-5.4 [place] Comment on above: Performed By: #### L 500.2500, L100.0100 #### [facility] [address] [place], [address] RDW SD 48.6 fl High 35.1-43.9 [facility] Comment on above: Performed By: #### L 500.2500, L100.0100 #### [facility] [address] [place], [address] WBC (Bld) [#/Vol] 7.6 10*3/uL Normal 4.4-11.0 [facility] Comment on above: Performed By: #### L 500.2500, L100.0100 #### [facility] [address] [place], [address] Carbon dioxide, total [Moles /volume] in Central venous bloodOrdered By: Elmira Quijano on 07-07-2024 CO2 [Moles/Vol] 23.3 mmol/L 21.0-32.0 [facility] Chloride assayOrdered By: Pratima Quijano on 07-07-2024 Chloride [Moles/Vol] 105 mmol/L 98-108 [facility] Emergency Department Summary on 07-07-2024 Emergency Department Summary [facility] Medical Records Department [address] [place] [address] Emergency Department Summary 07/07/24 MR#: [id number] Acct: [id number] Name: AMY NAIDU Rep #: [id number] : 1975 49 From: Elmira MCGUIRE PCP: [...] Labs: Laborat (more content not included)... Normal [facility] Eosinophil percentageOrdered By: Elmira Quijano on 07-07-2024 Eosinophils/100 WBC (Bld) 1.5 % 0-5 [facility] Erythrocyte distribution wid th (RBC) [Ratio]Ordered By: Elmira Quijano on 07-07-2024 Erythrocyte distribution width (RBC) [Entitic vol] 48.6 fL High 35.1-43.9 [facility] Erythrocyte distribution wid th ratioOrdered By: Elmira Quijano on 07-07-2024 Erythrocyte distribution width (RBC) [Ratio] 15.0 % High 11.6-14.6 [facility] Erythrocyte distribution wid th standard deviationOrdered By: Elmira Quijano on 07-07-2024 Erythrocyte distribution width (RBC) [Ratio] 48.6 fl High 35.1-43.9 [facility] Estimation of creatinine jhony aranceOrdered By: Elmira Quijano on 07-07-2024 Estimated Creatinine Clearance Calc 113.47 ml/min 50-250 [facility] GFR/1.73 sq M.predicted faith g non-blacks MDRD (S/P/Bld) [Vol rate/Area]Ordered By: Elmira Quijano on 07-07-2024 Estimated GFR (MDRD) Non-Af Amer 95 >60 [facility] Comment on above: mL/min/1.73m2 CKD-EP I Creatinine Equation (2020) Glomerular filtration rate ( GFR) estimation/1.73 sq m using serum, plasma, or whole bOrdered By: Elmira Quijano on 07-07-2024 GFR/1.73 sq M.predicted among non-blacks MDRD (S/P/Bld) [Vol rate/Area] 95 mL/min/{1.73_m2} >60 [facility] Comment on above: mL/min/1.73m2 CKD-EP I Creatinine Equation (2020) Hematocrit Auto (Bld) [Volum e fraction]Ordered By: Elmira Quijano on 07-07-2024 Hematocrit (Bld) [Volume fraction] 38.4 % 37-47 [facility] Hemoglobin measurementOrdere d By: Elmira Quijano on 07-07-2024 Hemoglobin (Bld) [Mass/Vol] 12.4 g/dL 12.0-15.0 [facility] Immature granulocytes/100 WB C Auto (Bld)Ordered By: Elmira Quijano on 07-07-2024 Immature granulocytes/100 WBC (Bld) 0.400 % 0.0-0.9 [facility] Comment on above: IG% - Immature Granu locytes (promyelocytes, myelocytes and metamyelocytes) > 1% indicates that a LEFT SHIFT is Present. Lymphocytes Auto (Unsp spec) [#/Vol]Ordered By: Elmira Quijano on 07-07-2024 Lymphocytes (Bld) [#/Vol] 2.04 10*3/uL 0.83-4.51 [facility] Lymphocytes/100 WBC Auto (Un sp spec)Ordered By: Elmira Quijano on 07-07-2024 Lymphocytes/100 WBC (Bld) 27.0 % 19-41 [facility] MCV (mean corpuscular volume ) determinationOrdered By: Elmira Quijano on 07-07-2024 MCV (RBC) [Entitic vol] 89.7 fL 81-99 [facility] Mean corpuscular hemoglobin (MCH) determinationOrdered By: Elmira Quijano on 07-07-2024 MCH (RBC) [Entitic mass] 29.0 pg 27.0-32.0 [facility] Mean corpuscular hemoglobin concentration (MCHC) determinationOrdered By: Elmira Quijano on 07-07-2024 MCHC (RBC) [Mass/Vol] 32.3 g/dL 32-36 [facility] Mean platelet volume determi nationOrdered By: Elmira Quijano on 07-07-2024 Platelet mean volume (Bld) [Entitic vol] 12.7 fL High 6.2-12.0 [facility] Monocyte percentageOrdered B y: Elmira Quijano on 07-07-2024 Monocytes/100 WBC (Bld) 7.0 % 0-10 [facility] Neutrophil percentageOrdered By: Elmira Quijano on 07-07-2024 Neutrophils/100 WBC (Bld) 63.7 % 47-70 [facility] Nucleated red blood cell per centageOrdered By: Elmira Quijano on 07-07-2024 Nucleated RBC/100 WBC (Bld) [Ratio] 0 % 0-5 [facility] Platelet countOrdered By: Pratima seettpatricio Quijano on 07-07-2024 Platelets (Bld) [#/Vol] 246 10*3/uL 150-450 [facility] Potassium (Unsp spec) [Mass/ Vol]Ordered By: Elmira Quijano on 07-07-2024 Potassium [Moles/Vol] 4.1 mmol/L 3.3-5.1 [facility] Potassium measurement (mass/ volume)Ordered By: Elmira Quijano on 07-07-2024 Potassium (Unsp spec) [Mass/Vol] 4.1 mmol/L 3.3-5.1 [facility] RBC Auto (Bld) [#/Vol]Ordere d By: Elmira Quijano on 07-07-2024 RBC (Bld) [#/Vol] 4.28 10*6/uL 4.2-5.4 [place] Serum creatinine measurement (mass/volume)Ordered By: Elmira Quijano on 07-07-2024 Creatinine [Mass/Vol] 0.77 mg/dL 0.70-1.20 [facility] Serum glucose measurement (m ass/volume)Ordered By: Elmira Quijano on 07-07-2024 Glucose [Mass/Vol] 187 mg/dL High 70-99 [facility] Serum or plasma calcium lenny urement (mass/volume)Ordered By: Elmira Quijano on 07-07-2024 Calcium [Mass/Vol] 8.8 mg/dL 7.6-11.0 [facility] Serum or plasma urea nitroge n measurement (mass/volume)Ordered By: Elmira Quijano on 07-07-2024 Urea nitrogen [Mass/Vol] 12 mg/dL 4-19 [facility] Sodium levelOrdered By: Juan Quijano on 07-07-2024 Sodium [Moles/Vol] 138 mmol/L 133-145 [facility] Soft Tissue Neck WITH Contra ston 07-07-2024 Soft Tissue Neck WITH Contrast [facility] Imaging Services [address] [place], [place] [id number] Soft Tissue Neck WITH Contrast MR#: [id number] Acct: [id number] Name: AMY NAIDU Rep #: [id number] : 1975 F 49 From: Anna Garland nd, MD PCP: Care Physician,No Primary Status: REG ER Study: Soft Tissue Neck WITH Contrast Date of Exam: 0 07/07/24 Exam# [id number] Ordering Dr: Elmira Quijano PROCEDURE: SOFT TISSUE [...] and physical exam correlation recommended. Reading Location: [facility] CC: MAYNOR Zhu; No Primary Care Physician Warp Tester: Signed Normal [facility] White blood cell (WBC) count Ordered By: Elmira Quijano on 07-07-2024 WBC (Bld) [#/Vol] 7.6 10*3/uL 4.4-11.0 [facility] Surgery Generalon 06-06-2023 [facility] [address] [place] [address] [address] [place] [address] Surgery General Signed Patient: Amy Naidu MR#: [id number] : 1975 Acct: [id number] Age/Sex: 48 / F Loc: SURG.AV Date of Service: 06/06/[address]: Roman Breaux D.O. cc: Gus Block Intake Vital Signs ([facility]) 06/06/23 13:53 Height 5 ft 5 in Weight 217 lb 9.54 oz BMI 36.2 BP 145/92 Blood Pressure Location Lt brachial Position Sitting Pulse 90 Pulse Oximetry (%) 92 Oxygen Delivery Method Room Air Intake Visit Reasons: Scope 2 week End Packer Required: No Is patient in acute pain: [...] and colleagues, with an educational michelle from [employer]. .. [facility] Medical History Diabetes History of anxiety [...] of anxie (more content not included)... Normal [facility] Amphetamine Screen Ql (U)Ord ered By: Cata Boss on 05-15-2023 Amphetamines Ql (U) Not detected None Detect So [facility] Comment on above: Cutoff: 500ng/mL CT biopsyOrdered By: Cata Boss on 05-15-2023 Benzodiazepines Ql (U) Not detected None Detect [facility] Comment on above: Cutoff: 200ng/mL Cocaine Ql (U) Not detected None Detect Filiberto johnson [facility] Comment on above: Cutoff: 150ng/mL CT biopsy Not detected None Detect [facility] Comment on above: Cutoff: 200ng/mL Glucometer POCon 05-15-2023 Glucose [Mass/Vol] 145 mg/dL High 70-110 Jorge quinonez [facility] Comment on above: Order Comment: Speci men Type: Unknown Relevant Clinical Information: POSITIVE COLOGUARD, POOR PREP Ordering Facility: [facility] Address: , , Performed By: #### G LUCOMETER #### [facility] Glucose Glucometer (BldC) [M ass/Vol]Ordered By: Roman Breaux on 05-15-2023 Glucose [Mass/Vol] 145 mg/dL 70-110 Jorge quinonez [facility] HCG ( test) [place] Ql (S)Ordered By: Cata Boss on 05-15-2023 HCG ( test) Ql Negative [facility] 05-15-2023 HCG Qualitative Negative Normal Negative [facility] Comment on above: Order Comment: Speci men Type: Unknown Relevant Clinical Information: POSITIVE COLOGUARD, POOR PREP Ordering Facility: [facility] Lab-CLIA#[id number] Address: [address] [place] [address] Performed By: #### H CGQ #### [facility] Lab-CLIA#[id number] CLIA [id number] [address] [place] [address] Dimitri Herron DO,FCPAUL Hematoxylin and Eosin Staino n 05-15-2023 Hematoxylin and Eosin Stain RUN DATE: 05/16/23 [facility] *LIVE* - LAB PAGE 1 RUN TIME: 1415 Specimen Inquiry PATIENT: Amy Naidu ACCT: [id number] LOC: [facility]END[facility].SV U: [id number] AGE/SX: 48/F ROOM: RE05/15/[address]: Roman Breaux D.O. : 1975 BED: DIS: STATUS: [facility] TLOC: SPEC : SP RECD: 05/15/23 STATUS: TIGRE REQ NUM: [id number] MUNA: 05/15/23- DR: Roman Breaux D.O. ENTERED: 05/15/23 SP [...] MD 05/16/23 1414 END OF REPORT Normal [facility] Comment on above: Order Comment: Speci men Type: Unknown Does the patient have one or more UTI symptoms? Y Clean Catch Reason for Study: Does the patient have one or more UTI symptoms? Y Relevant Clinical Information: Left flank pain, dizzy, vomiting Ordering Facility: [facility] Lab-CLIA#[id number] Address: [address] [place] [address] Performed By: #### U [place], UAMRFLX #### [facility] Lab-CLIA#[id number] CLIA [id number] [address] [place] [address] Dimitri Herron DO, FCAP History Physical Updateon History Physical Update [facility] [place] [address] History Physical Update Signed Patient: Amy Naidu MR#: [id number] 93 : 1975 Acct: [id number] Age/Sex: 48 / F ADM Date: 05/15/2321 Loc: [facility]. Attending Dr: Roman Breaux D.O. cc: Roman Breaux D.O. Review Pre-Op Review The H P was reviewed, the patient was examined, and no change has occurred in the patient???s condition since the H P was completed.: Yes Documented By: Roman Breaux D.O. 05/15/23820 Signed By: 05/15/23821 Normal [facility] No Panel InformationOrdered By: Cata oBss on 05-15-2023 Urine Drug Screen Comment. See comment [facility] Comment on above: This method provides only [...] Post Anesthesia Noteon 05-15 [place] [address] Post Anesthesia Note Signed Patient: Amy Naidu MR#: [id number] 93 : 1975 Acct: [id number] Age/Sex: 48 / F ADM Date: 05/15/23 1015 Loc: [facility]. Attending Dr: [...] M.D. 05/15/23 1015 Signed By: 05/15/23 1015 [facility] Pre-Anesthesia Noteon 2023 [place] [address] Pre-Anesthesia Note Signed Patient: Amy Naidu MR#: [id number] 93 : 1975 Acct: [id number] Age/Sex: 48 / F ADM Date: 05/15/23747 Loc: [facility] Attending Dr: Roman Breaux D.O. cc: Cata [...] No Would like to be referred to [employer] Sulfite for info?: No Smoking Status: Current every [...] high school graduate Spiritual Healthcare Practices: denies Spiritism Healthcare Practices: denies Cultural Healthcare Practices: denies [...] anesthesia: Yes Documented By: Cata Boss M.D. (more content not included)... Normal [facility] Screening urine 6-acetylmorp erinn measurementOrdered By: Cata Boss on 05-15-2023 6-Monoacetylmorphine (6-NATASHA) Screen Ql (U) Not detected None Detect [facility] Comment on above: Cutoff: 10ng/mL Screening urine cannabinoids detection using 50 ng/mL cutoffOrdered By: Cata Boss on 05-15-2023 Tetrahydrocannabinol Screen method >50 ng/mL Ql (U) Not detected None Detect [facility] Comment on above: Cutoff: 50ng/mL Screening urine opiates test Ordered By: Cata Boss on 05-15-2023 Opiates Screen Ql (U) Not detected None Detect [facility] Comment on above: Cutoff: 300ng/mL Urine Drug Screen of Abuseon 05-15-2023 Amphetamine Screen Ur Not detected Normal None Detect [facility] Comment on above: Order Comment: Speci men Type: Unknown Relevant Clinical Information: POSITIVE COLOGUARD, POOR PREP Ordering Facility: [facility] Lab-CLIA#[id number] Address: [address] [place] [address] Result Comment: Cuto ff: 500ng/mL Performed By: #### U DSA #### [facility] Lab-CLIA#[id number] CLIA [id number] [address] [place] [address] Dimitri Herron, DO,FCAP Barbiturate Screen Ur Not detected Normal None Detect [facility] Comment on above: Order Comment: Speci men Type: Unknown Relevant Clinical Information: POSITIVE COLOGUARD, POOR PREP Ordering Facility: [facility] Lab-CLIA#[id number] Address: [address] [place] [address] Result Comment: Cuto ff: 200ng/mL Performed By: #### U DSA #### [facility] Lab-CLIA#[id number] CLIA [id number] [address] [place] [address] Vincsherlyn Randaisi, DO,FCAP Benzodiazepines Screen Ur Not detected Normal None Detect [facility] Comment on above: Order Comment: Speci men Type: Unknown Relevant Clinical Information: POSITIVE COLOGUARD, POOR PREP Ordering Facility: [facility] Lab-CLIA#[id number] Address: [address] [place] [address] Result Comment: Cuto ff: 200ng/mL Performed By: #### U DSA #### [facility] Lab-CLIA#[id number] CLIA [id number] [address] [place] [address] Vincent Randaisi, DO,FCAP Buprenorphine Screen Ur Not detected Normal None Detec t [facility] Comment on above: Order Comment: Speci men Type: Unknown Relevant Clinical Information: POSITIVE COLOGUARD, POOR PREP Ordering Facility: [facility] Lab-CLIA#[id number] Address: [address] [place] [address] Result Comment: Cuto ff: 5ng/mL Performed By: #### U DSA #### [facility] Lab-CLIA#[id number] CLIA [id number] [address] [place] [address] Vincent Randaisi, DO,FCAP Cannabinoid Screen Urine Not detected Normal None Dete ct [facility] Comment on above: Order Comment: Speci men Type: Unknown Relevant Clinical Information: POSITIVE COLOGUARD, POOR PREP Ordering Facility: [facility] Lab-CLIA#[id number] Address: [address] [place] [address] Result Comment: Cuto ff: 50ng/mL Performed By: #### U DSA #### [facility] Lab-CLIA#[id number] CLIA [id number] [address] [place] [address] Vincsherlyn Randaisi, DO,FCAP Cocaine Screen Ur Not detected Normal None Detect [facility] Comment on above: Order Comment: Speci men Type: Unknown Relevant Clinical Information: POSITIVE COLOGUARD, POOR PREP Ordering Facility: [facility] Lab-CLIA#[id number] Address: [address] [place] [address] Result Comment: Cuto ff: 150ng/mL Performed By: #### U DSA #### [facility] Lab-CLIA#[id number] CLIA [id number] [address] [place] [address] Vincent Randaisi, DO,FCAP Fentanyl Screen Ur Not detected Normal None Detect [facility] Comment on above: Order Comment: Speci men Type: Unknown Relevant Clinical Information: POSITIVE COLOGUARD, POOR PREP Ordering Facility: [facility] Lab-CLIA#[id number] Address: [address] [place] [address] Result Comment: Cuto ff: 1.0 ng/mL Quinine and Quinidine may interfere with Fentanyl screening. Performed By: #### U DSA #### [facility] Lab-CLIA#[id number] CLIA [id number] [address] [place] [address] Vincent Randaisi, DO,FCAP Heroin (6-AM) Screen Ur Not detected Normal None Detec t [facility] Comment on above: Order Comment: Speci men Type: Unknown Relevant Clinical Information: POSITIVE COLOGUARD, POOR PREP Ordering Facility: [facility] Lab-CLIA#[id number] Address: [address] [place] [address] Result Comment: Cuto ff: 10ng/mL Performed By: #### U DSA #### [facility] Lab-CLIA#[id number] CLIA [id number] [address] [place] [address] Vincent Randaisi, DO,FCAP Methadone Screen Ur Not detected Normal None Detect So [facility] Comment on above: Order Comment: Speci men Type: Unknown Relevant Clinical Information: POSITIVE COLOGUARD, POOR PREP Ordering Facility: [facility] Lab-CLIA#[id number] Address: [address] [place] [address] Result Comment: Cuto ff: 150ng/mL Performed By: #### U DSA #### [facility] Lab-CLIA#[id number] CLIA [id number] [address] [place] [address] Vincent Randaisi, DO,FCAP Opiate Screen Ur Not detected Normal None Detect [facility] Comment on above: Order Comment: Speci men Type: Unknown Relevant Clinical Information: POSITIVE COLOGUARD, POOR PREP Ordering Facility: [facility] Lab-CLIA#[id number] Address: [address] [place] [address] Result Comment: Cuto ff: 300ng/mL Performed By: #### U DSA #### [facility] Lab-CLIA#[id number] CLIA [id number] [address] [place] [address] Dimitri Herron, DO,FCAP Oxycodone Screen Ur Not detected Normal None Detect So [facility] Comment on above: Order Comment: Speci men Type: Unknown Relevant Clinical Information: POSITIVE COLOGUARD, POOR PREP Ordering Facility: [facility] Lab-CLIA#[id number] Address: [address] [place] [address] Result Comment: Cuto ff: 100ng/mL Performed By: #### U DSA #### [facility] Lab-CLIA#[id number] CLIA [id number] [address] [place] [address] Dimitri Herron DO,FCAP Urine Drug Message Normal [facility] Comment on above: Order Comment: Speci men Type: Unknown Relevant Clinical Information: POSITIVE COLOGUARD, POOR PREP Ordering Facility: [facility] Lab-CLIA#[id number] Address: [address] [place] [address] Result Comment: This method provides only a [...] purposes. Performed By: #### U DSA #### [facility] Lab-CLIA#[id number] CLIA [id number] [address] [place] [address] Dimitri Herron, DO,FCAP Urine buprenorphine screenOr dered By: Cata Boss on 05-15-2023 Buprenorphine Screen Ql (U) Not detected None Detect [facility] Comment on above: Cutoff: 5ng/mL Urine fentanyl detection by screening methodOrdered By: Cata Boss on 05-15-2023 fentaNYL Screen Ql (U) Not detected None Detect [facility] Comment on above: Cutoff: 1.0 ng/mLQui nine and Quinidine may interfere with Fentanyl screening. Urine methadone screenOrdere d By: Cata Monzonpal on 05-15-2023 Methadone Screen Ql (U) Not detected None Detec t [facility] Comment on above: Cutoff: 150ng/mL oxyCODONE Screen Ql (U)Order ed By: Cata Boss on 05-15-2023 oxyCODONE Ql (U) Not detected None Detect [facility] Comment on above: Cutoff: 100ng/mL General Surg History Physica todd 04-17-2023 General Surg History Physical [address] [address] General Surg History Physical Signed Patient: Amy Naidu MR#: [id number] 93 : 1975 Acct: [id number] Age/Sex: 47 / F ADM Date: 04/17/23 [...] No Would like to be referred to [employer] Sulfite for info?: No Smoking Status: Current every [...] high school graduate Spiritual Healthcare Practices: none Spiritism Healthcare Practices: none Cultural Healthcare Practices: none [...] Allergies Al (more content not included)... Normal [facility] Glucometer POCon 04-17-2023 Glucose [Mass/Vol] 144 mg/dL High 70-110 Jorge quinonez [facility] Comment on above: Order Comment: Speci men Type: Unknown Relevant Clinical Information: POSITIVE COLOGUARD Ordering Facility: [facility] Address: , , Performed By: #### G LUCOMETER #### [facility] Glucose Glucometer (BldC) [M ass/Vol]Ordered By: Roman Breaux on 04-17-2023 Glucose [Mass/Vol] 144 mg/dL 70-110 Jorge quinonez [facility] HCG ( test) IA.pipo d Ql (S)Ordered By: Tree Reardon on 04-17-2023 HCG ( test) Ql Negative Negative S outhern [facility] HCG Qualitativeon 04-17-2023 HCG Qualitative Negative Normal Negative [facility] Comment on above: Order Comment: Speci men Type: Unknown Does the patient have one or more UTI symptoms? Y Clean Catch Reason for Study: Does the patient have one or more UTI symptoms? Y Relevant Clinical Information: Left flank pain, dizzy, vomiting Ordering Facility: [facility] Lab-CLIA#[id number] Address: [address] [place] [address] Performed By: #### U [place], UAMRFLX #### [facility] Lab-CLIA#[id number] CLIA [id number] [address] [place] [address] Dimitri Herron DO,FCAP Post Anesthesia Noteon 04-17 [place] [address] Post Anesthesia Note Signed Patient: Amy Naidu MR#: [id number] 93 : 1975 Acct: [id number] Age/Sex: 47 / F ADM Date: 04/17/23 1546 Loc: [facility] Attending Dr: Roman Breaux D.O. cc: Tree Reardon D.O. Anesthesia Post Op Evaluation Procedure Procedure: Procedures Operation Date: 04/17/23 09:30 Actual Procedure Side Surgeon noreen WARD Left Roman Breaux DO Post Anesthesia Criteria [...] criteria Documented By: Tree Reardon D.O. 04/17/23 1546 Signed By: 04/17/23 1546 [facility] Pre-Anesthesia Noteon 2023 [place] [address] Pre-Anesthesia Note Signed Patient: Amy Naidu MR#: [id number] 93 : 1975 Acct: [id number] Age/Sex: 47 / F ADM Date: 04/17/23837 Loc: [facility]. Attending Dr: Roman Breaux D.O. cc: Tree [...] No Would like to be referred to Cooker Sulfite for info?: No Smoking Status: Current every [...] high school graduate Spiritual Healthcare Practices: none Spiritism Healthcare Practices: none Cultural Healthcare Practices: none [...] understand a (more content not included)... Normal [facility] Urine Cultureon 03-28-2023 Bacteria identified Cx Nom (U) ORGANISM ID: [id number] coli - Isolated [place] Count >100,000 CFU/ml Gram Negative Sensitivity 66 [...] S F Piperacillin/Tazobac mathew S F Normal [facility] Comment on above: Order Comment: Speci men Type: Unknown Relevant Clinical Information: POSITIVE COLOGUARD, POOR PREP Ordering Facility: [facility] Lab-CLIA#[id number] Address: [address] [place] [address] Performed By: #### H CGQ #### [facility] Lab-CLIA#[id number] CLIA [id number] [address] [place] [address] Dimitri Herron DO, FCAP Urgent Care Noteon 3 Urgent Care Note [facility] [address] [place] [address] Urgent Care Note Signed with Addenda Patient: Amy Naidu MR#: [id number] : 1975 Acct: [id number] Age/Sex: 47 / F Loc: [facility]. Date of Service: 03/26/[address]: Sagar Lema JEEP DRIVER cc: Chago Edwards DO ADDENDUM Office Procedure Documentation entered by Kadi Jhaveri LPN 03/26/23 14:05: POC Procedure Completed Procedure Procedure Completed?: Yes Details: Laboratory Tests 03/26/23 13:20 Urine Color Dark Yellow Urine Appearance Clear Urine pH 6.0 Ur Specific [place] >=1.030 POC Urine Protein Conf 100 A POC Urine Glucose 500 A Urine Ketones Negative Urine Blood Small A POC Urine Nitrate Positive A POC Ur Bilirubin Conf Negative Urine Urobilinogen 0.2 Ur Leukocyte Esterase Small A Addendum Dictated By: Sagar Lema CNP Addendum Signed By: Addendum Cosigned By: DD/ [...] and colleagues, with an educational michelle from [employer]. .. Nurse's Note Nurse's Note: pt c/o [...] No other complaints voiced at this time [facility] Medical History Diabetes History of anxiety [...] of depression (more content not included)... Normal [facility] Urinalysis Routine Dipstick POCon 03-26-2023 Appearance (U) Clear Normal Clear [facility] Comment on above: Order Comment: Speci men Type: Unknown Relevant Clinical Information: POSITIVE COLOGUARD, POOR PREP Ordering Facility: [facility] Lab-CLIA#[id number] Address: [address] [place] [address] Performed By: #### H CGQ #### [facility] Lab-CLIA#[id number] CLIA [id number] [address] [place] [address] Dimitri Herron DO,FCAP Protein (U) [Mass/Vol] 100 mg/dL Abnormal Negative So [facility] Comment on above: Order Comment: Speci men Type: Unknown Relevant Clinical Information: POSITIVE COLOGUARD, POOR PREP Ordering Facility: [facility] Lab-CLIA#[id number] Address: [address] [place] [address] Performed By: #### H CGQ #### [facility] Lab-CLIA#[id number] CLIA [id number] [address] [place] [address] Dimitri Herron DO,FCAP Ur Specific Manquin >=1.030 Normal 1.000-1.030 [facility] Comment on above: Order Comment: Speci men Type: Unknown Relevant Clinical Information: POSITIVE COLOGUARD, POOR PREP Ordering Facility: [facility] Lab-CLIA#[id number] Address: [address] [place] [address] Performed By: #### H CGQ #### [facility] Lab-CLIA#[id number] CLIA [id number] [address] [place] [address] Dimitri Herron DO,FCAP Urine Bilirubin POC Negative Normal Negative [facility] Comment on above: Order Comment: Speci men Type: Unknown Relevant Clinical Information: POSITIVE COLOGUARD, POOR PREP Ordering Facility: [facility] Lab-CLIA#[id number] Address: [address] [place] [address] Performed By: #### H CGQ #### [facility] Lab-CLIA#[id number] CLIA [id number] [address] [place] [address] Dimitri Herron, DO,FCAP Urine Blood POC Small Abnormal Negative [facility] Comment on above: Order Comment: Speci men Type: Unknown Relevant Clinical Information: POSITIVE COLOGUARD, POOR PREP Ordering Facility: [facility] Lab-CLIA#[id number] Address: [address] [place] [address] Performed By: #### H CGQ #### [facility] Lab-CLIA#[id number] CLIA [id number] [address] [place] [address] Dimitri Herron DO,FCAP Urine Color POC Dark Yellow Normal Yellow [facility] Comment on above: Order Comment: Speci men Type: Unknown Relevant Clinical Information: POSITIVE COLOGUARD, POOR PREP Ordering Facility: [facility] Lab-CLIA#[id number] Address: [address] [place] [address] Performed By: #### H CGQ #### [facility] Lab-CLIA#[id number] CLIA [id number] [address] [place] [address] Dimitri Herron DO,FCAP Urine Glucose POC 500 mg/dL Abnormal Negative [facility] Comment on above: Order Comment: Speci men Type: Unknown Relevant Clinical Information: POSITIVE COLOGUARD, POOR PREP Ordering Facility: [facility] Lab-CLIA#[id number] Address: [address] [place] [address] Performed By: #### H CGQ #### [facility] Lab-CLIA#[id number] CLIA [id number] [address] [place] [address] Dimitri Herron DO,FCAP Urine Ketones POC Negative Normal Negative [facility] Comment on above: Order Comment: Speci men Type: Unknown Relevant Clinical Information: POSITIVE COLOGUARD, POOR PREP Ordering Facility: [facility] Lab-CLIA#[id number] Address: [address] [place] [address] Performed By: #### H CGQ #### [facility] Lab-CLIA#[id number] CLIA [id number] [address] [place] [address] Dimitri Herron, DO,FCAP Urine Leukocyte Esterase POC Small Abnormal Negative [facility] Comment on above: Order Comment: Speci men Type: Unknown Relevant Clinical Information: POSITIVE COLOGUARD, POOR PREP Ordering Facility: [facility] Lab-CLIA#[id number] Address: [address] [place] [address] Performed By: #### H CGQ #### [facility] Lab-CLIA#[id number] CLIA [id number] [address] [place] [address] Dimitri Herron DO,FCAP Urine Nitrites POC Positive Abnormal Negative [facility] Comment on above: Order Comment: Speci men Type: Unknown Relevant Clinical Information: POSITIVE COLOGUARD, POOR PREP Ordering Facility: [facility] Lab-CLIA#[id number] Address: [address] [place] [address] Performed By: #### H CGQ #### [facility] Lab-CLIA#[id number] CLIA [id number] [address] [place] [address] Dimitri Herron, DO,FCAP Urine pH POC 6.0 Normal <=7.5 [facility] Comment on above: Order Comment: Speci men Type: Unknown Relevant Clinical Information: POSITIVE COLOGUARD, POOR PREP Ordering Facility: [facility] Lab-CLIA#[id number] Address: [address] [place] [address] Performed By: #### H CGQ #### [facility] Lab-CLIA#[id number] CLIA [id number] [address] [place] [address] Dimitri Herron, DO,FCAP Urine Urobilinogen POC 0.2 E.U./dL Normal 0-1.9 [facility] Comment on above: Order Comment: Speci men Type: Unknown Relevant Clinical Information: POSITIVE COLOGUARD, POOR PREP Ordering Facility: [facility] Lab-CLIA#[id number] Address: [address] [place] [address] Performed By: #### H CGQ #### [facility] Lab-CLIA#[id number] CLIA [id number] [address] [place] [address] Dimitri Herron, ,FCAP Urine culture routineOrdered By: Sagar Lema on 03-26-2023 Bacteria identified Cx Nom (U) Escherichia coli [facility] Surgery Generalon 03-14-2023 [facility] [address] [place] [address] Surgery General Signed Patient: Amy Naidu MR#: [id number] : 1975 Acct: [id number] Age/Sex: 47 / F Loc: SURG.AV Date of Service: 03/14/[address]: Roman Breaux D.O. cc: Chago Edwards DO Intake Vital Signs ([facility]) 03/14/23 14:13 Height 5 ft 5 [...] and colleagues, with an educational michelle from [employer]. .. PFSH PFSH Medical History Diabetes History [...] anything to end your life?: No [employer] Review of Systems [...] muscle c (more content not included)... Normal [facility]ANVAArvind [facility]-30[facility]2023 [facility] [address] [place] [address] Ultrasound Report Signed Patient: Amy Naidu MR#: [id number] : 1975 Acct: [id number] Age/Sex: 47 / F ADM Date: 01/30/23 Loc: [facility]. Attending Dr: Shaunna Estevez Ordering Physician: Shaunna Estevez Date of Service: 01/30/23 Procedure(s): US transvaginal Accession Number(s): [id number] cc: Chago Edwards DO; Shaunna Estevez ULTRASOUND [...] Signed By: Graham Baum D.O. 01/30/23 1223 [id number] Normal [facility] Amylaseon 01-06-2023 Amylase [Catalytic activity/Vol] 108 U/L Normal 30-118 [facility] Comment on above: Order Comment: Speci men Type: Unknown Relevant Clinical Information: POSITIVE COLOGUARD Ordering Facility: [facility] Address: , , Performed By: #### G LUCOMETER #### [facility] Basic Metabolic Panelon Anion gap [Moles/Vol] 12 mmol/L Normal 7-17 [facility] Comment on above: Order Comment: Speci men Type: Unknown Relevant Clinical Information: POSITIVE COLOGUARD Ordering Facility: [facility] Address: , , Performed By: #### G LUCOMETER #### POC Calcium [Mass/Vol] 9.7 mg/dL Normal 8.3-10.6 [facility] Comment on above: Order Comment: Speci men Type: Unknown Relevant Clinical Information: POSITIVE COLOGUARD Ordering Facility: [facility] Address: , , Performed By: #### G LUCOMETER #### POC Chloride [Moles/Vol] 104 mmol/L Normal 98-107 [facility] Comment on above: Order Comment: Speci men Type: Unknown Relevant Clinical Information: POSITIVE COLOGUARD Ordering Facility: [facility] Address: , , Performed By: #### G LUCOMETER #### POC CO2 [Moles/Vol] 27 mmol/L Normal 20-31 [facility] Comment on above: Order Comment: Speci men Type: Unknown Relevant Clinical Information: POSITIVE COLOGUARD Ordering Facility: [facility] Address: , , Performed By: #### G LUCOMETER #### POC Creatinine [Mass/Vol] 1.070 mg/dL High 0.55-1.02 So [facility] Comment on above: Order Comment: Speci men Type: Unknown Relevant Clinical Information: POSITIVE COLOGUARD Ordering Facility: [facility] Address: , , Performed By: #### G LUCOMETER #### POC Creatinine Clr Calc Pharmacy 60 Normal [facility] Comment on above: Order Comment: Speci men Type: Unknown Relevant Clinical Information: POSITIVE COLOGUARD Ordering Facility: [facility] Address: , , Performed By: #### G LUCOMETER #### POC GFR/1.73 sq M.predicted MDRD (S/P/Bld) [Vol rate/Area] 59 mL/min/{1.73_m2} Low [facility] Comment on above: Order Comment: Speci [...] POC Glucose [Mass/Vol] 128 mg/dL High 74-106 [facility] Comment on above: Order Comment: Speci men Type: Unknown Relevant Clinical Information: POSITIVE COLOGUARD Ordering Facility: [facility] Address: , , Performed By: #### G LUCOMETER #### POC Potassium [Moles/Vol] 3.9 mmol/L Normal 3.5-5.1 [facility] Comment on above: Order Comment: Speci men Type: Unknown Relevant Clinical Information: POSITIVE COLOGUARD Ordering Facility: [facility] Address: , , Performed By: #### G LUCOMETER #### POC Sodium [Moles/Vol] 139 mmol/L Normal 136-145 [facility] Comment on above: Order Comment: Speci men Type: Unknown Relevant Clinical Information: POSITIVE COLOGUARD Ordering Facility: [facility] Address: , , Performed By: #### G LUCOMETER #### POC Urea nitrogen [Mass/Vol] 17 mg/dL Normal 9-23 [facility] Comment on above: Order Comment: Speci men Type: Unknown Relevant Clinical Information: POSITIVE COLOGUARD Ordering Facility: [facility] Address: , , Performed By: #### G LUCOMETER #### POC CBC w/ Auto Diffon 3 Basophils Absolute Auto 0.02 10*3/uL Normal 0.00-0.10 [facility] Comment on above: Order Comment: Speci men Type: Unknown Relevant Clinical Information: Left flank pain, dizzy, vomiting Ordering Facility: [facility] Lab-CLIA#[id number] Address: [address] [place] [address] Performed By: #### C BC #### [facility] Lab-CLIA#[id number] CLIA [id number] [address] [place] [address] Dimitri Herron DO,FCAP Basophils/100 WBC (Bld) 0.2 % Normal 0.0-1.3 [facility] Comment on above: Order Comment: Speci men Type: Unknown Relevant Clinical Information: Left flank pain, dizzy, vomiting Ordering Facility: [facility] Lab-CLIA#[id number] Address: [address] [place] [address] Performed By: #### C BC #### [facility] Lab-CLIA#[id number] CLIA [id number] [address] [place] [address] Dimitri Herron DO,FCAP Eosinophils (Bld) [#/Vol] 0.36 10*3/uL Normal 0.00-0.50 [facility] Comment on above: Order Comment: Speci men Type: Unknown Relevant Clinical Information: Left flank pain, dizzy, vomiting Ordering Facility: [facility] Lab-CLIA#[id number] Address: [address] [place] [address] Performed By: #### C BC #### [facility] Lab-CLIA#[id number] CLIA [id number] [address] [place] [address] Dimitri Herron DO,FCAP Eosinophils/100 WBC (Bld) 3.0 % Normal 0.0-5.8 [facility] Comment on above: Order Comment: Speci men Type: Unknown Relevant Clinical Information: Left flank pain, dizzy, vomiting Ordering Facility: [facility] Lab-CLIA#[id number] Address: [address] [place] [address] Performed By: #### C BC #### [facility] Lab-CLIA#[id number] CLIA [id number] [address] [place] [address] Dimitri Herron DO,FCAP Erythrocyte distribution width (RBC) [Ratio] 15.9 % High 11.6-14.8 [facility] Comment on above: Order Comment: Speci men Type: Unknown Relevant Clinical Information: Left flank pain, dizzy, vomiting Ordering Facility: [facility] Lab-CLIA#[id number] Address: [address] [place] [address] Performed By: #### C BC #### [facility] Lab-CLIA#[id number] CLIA [id number] [address] [place] [address] Dimitri Herron DO,FCAP Hematocrit (Bld) [Volume fraction] 49.5 % High 35.4-47.9 [facility] Comment on above: Order Comment: Speci men Type: Unknown Relevant Clinical Information: Left flank pain, dizzy, vomiting Ordering Facility: [facility] Lab-CLIA#[id number] Address: [address] [place] [address] Performed By: #### C BC #### [facility] Lab-CLIA#[id number] CLIA [id number] [address] [place] [address] Dimitri Herron, DO,FCAP Hemoglobin (Bld) [Mass/Vol] 16.1 g/dL High 11.9-16.0 [facility] Comment on above: Order Comment: Speci men Type: Unknown Relevant Clinical Information: Left flank pain, dizzy, vomiting Ordering Facility: [facility] Lab-CLIA#[id number] Address: [address] [place] [address] Performed By: #### C BC #### [facility] Lab-CLIA#[id number] CLIA [id number] [address] [place] [address] Dimitri Herron, DO,FCAP Lymphocytes (Bld) [#/Vol] 2.10 10*3/uL Normal 0.80-3.30 [facility] Comment on above: Order Comment: Speci men Type: Unknown Relevant Clinical Information: Left flank pain, dizzy, vomiting Ordering Facility: [facility] Lab-CLIA#[id number] Address: [address] [place] [address] Performed By: #### C BC #### [facility] Lab-CLIA#[id number] CLIA [id number] [address] [place] [address] Dimitri Herron, DO,FCAP Lymphocytes/100 WBC (Bld) 17.7 % Normal 13.4-45.1 [facility] Comment on above: Order Comment: Speci men Type: Unknown Relevant Clinical Information: Left flank pain, dizzy, vomiting Ordering Facility: [facility] Lab-CLIA#[id number] Address: [address] [place] [address] Performed By: #### C BC #### [facility] Lab-CLIA#[id number] CLIA [id number] [address] [place] [address] Dimitri Herron DO,FCAP MCH (RBC) [Entitic mass] 28.1 pg Normal 27.2-33.0 [facility] Comment on above: Order Comment: Speci men Type: Unknown Relevant Clinical Information: Left flank pain, dizzy, vomiting Ordering Facility: [facility] Lab-CLIA#[id number] Address: [address] [place] [address] Performed By: #### C BC #### [facility] Lab-CLIA#[id number] CLIA [id number] [address] [place] [address] Dimitri Herron DO,FCAP MCHC (RBC) [Mass/Vol] 32.5 g/dL Normal 31.9-35.1 [facility] Comment on above: Order Comment: Speci men Type: Unknown Relevant Clinical Information: Left flank pain, dizzy, vomiting Ordering Facility: [facility] Lab-CLIA#[id number] Address: [address] [place] [address] Performed By: #### C BC #### [facility] Lab-CLIA#[id number] CLIA [id number] [address] [place] [address] Dimitri Herron DO,FCAP MCV (RBC) [Entitic vol] 86.4 fL Normal 82.1-97.1 [facility] Comment on above: Order Comment: Speci men Type: Unknown Relevant Clinical Information: Left flank pain, dizzy, vomiting Ordering Facility: [facility] Lab-CLIA#[id number] Address: [address] [place] [address] Performed By: #### C BC #### [facility] Lab-CLIA#[id number] CLIA [id number] [address] [place] [address] Dimitri Herron DO,FCAP Monocytes (Bld) [#/Vol] 0.61 10*3/uL Normal 0.30-0.90 [facility] Comment on above: Order Comment: Speci men Type: Unknown Relevant Clinical Information: Left flank pain, dizzy, vomiting Ordering Facility: [facility] Lab-CLIA#[id number] Address: [address] [place] [address] Performed By: #### C BC #### [facility] Lab-CLIA#[id number] CLIA [id number] [address] [place] [address] Vincent Randaisi, DO,FCAP Monocytes/100 WBC (Bld) 5.1 % Normal 4.0-12.7 [facility] Comment on above: Order Comment: Speci men Type: Unknown Relevant Clinical Information: Left flank pain, dizzy, vomiting Ordering Facility: [facility] Lab-CLIA#[id number] Address: [address] [place] [address] Performed By: #### C BC #### [facility] Lab-CLIA#[id number] CLIA [id number] [address] [place] [address] Vincent Randaisi, DO,FCAP Neutrophils Absolute Auto 8.73 10*3/uL High 1.70-7.00 [facility] Comment on above: Order Comment: Speci men Type: Unknown Relevant Clinical Information: Left flank pain, dizzy, vomiting Ordering Facility: [facility] Lab-CLIA#[id number] Address: [address] [place] [address] Performed By: #### C BC #### [facility] Lab-CLIA#[id number] CLIA [id number] [address] [place] [address] Vincent Randaisi, DO,FCAP Neutrophils/100 WBC (Bld) 73.6 % Normal 41.1-75.9 [facility] Comment on above: Order Comment: Speci men Type: Unknown Relevant Clinical Information: Left flank pain, dizzy, vomiting Ordering Facility: [facility] Lab-CLIA#[id number] Address: [address] [place] [address] Performed By: #### C BC #### [facility] Lab-CLIA#[id number] CLIA [id number] [address] [place] [address] Vincsherlyn Herron, DO,FCAP Platelet mean volume (Bld) [Entitic vol] 12.3 fL High 8.6-12.2 [facility] Comment on above: Order Comment: Speci men Type: Unknown Relevant Clinical Information: Left flank pain, dizzy, vomiting Ordering Facility: [facility] Lab-CLIA#[id number] Address: [address] [place] [address] Performed By: #### C BC #### [facility] Lab-CLIA#[id number] CLIA [id number] [address] [place] [address] Dimitri Herron, DO,FCAP Platelets (Bld) [#/Vol] 270 10*3/uL Normal 133-425 [facility] Comment on above: Order Comment: Speci men Type: Unknown Relevant Clinical Information: Left flank pain, dizzy, vomiting Ordering Facility: [facility] Lab-CLIA#[id number] Address: [address] [place] [address] Performed By: #### C BC #### [facility] Lab-CLIA#[id number] CLIA [id number] [address] [place] [address] Dimitri Herron, DO,FCAP RBC (Bld) [#/Vol] 5.73 10*6/uL High 3.40-5.40 [facility] Comment on above: Order Comment: Speci men Type: Unknown Relevant Clinical Information: Left flank pain, dizzy, vomiting Ordering Facility: [facility] Lab-CLIA#[id number] Address: [address] [place] [address] Performed By: #### C BC #### [facility] Lab-CLIA#[id number] CLIA [id number] [address] [place] [address] Dimitri Herron, DO,FCAP WBC (Bld) [#/Vol] 11.9 10*3/uL High 4.5-11.0 [facility] Comment on above: Order Comment: Speci men Type: Unknown Relevant Clinical Information: Left flank pain, dizzy, vomiting Ordering Facility: [facility] Lab-CLIA#[id number] Address: [address] [place] [address] Performed By: #### C BC #### [facility] Lab-CLIA#[id number] CLIA [id number] [address] [place] [address] Dimitri Herron DO,FCAP CTABDPELWOon 01-06-[address] [place] [address] [address] Scan Report Signed Patient: Amy Naidu MR#: [id number] : 1975 Acct: [id number] Age/Sex: 47 / F ADM Date: 01/05/23 Loc: ER.SV Attending Dr: Ordering Physician: Nichelle Gil CNP Date of Service: 01/05/23 Procedure(s): CT abdomen pelvis wo con Accession Number(s): [id number] cc: Nichelle Gil CNP; Chago Edwards DO CT ABDOMEN AND PELVIS [...] Signed By: Álvaro Palomino D.O. 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 Normal [facility] HCG Qualitativeon 01-06-2023 HCG Qualitative Negative Normal Negative [facility] Comment on above: Order Comment: Speci men Type: Unknown Relevant Clinical Information: POSITIVE COLOGUARD, POOR PREP Ordering Facility: [facility] Lab-CLIA#[id number] Address: [address] [place] [address] Performed By: #### H CGQ #### [facility] Lab-CLIA#[id number] CLIA [id number] [address] [place] [address] Vincent Randaisi, DO,FCAP Hepatic Function Panelon Albumin [Mass/Vol] 4.4 g/dL Normal 3.4-5.0 [facility] Comment on above: Order Comment: Speci men Type: Unknown Relevant Clinical Information: POSITIVE COLOGUARD, POOR PREP Ordering Facility: [facility] Lab-CLIA#[id number] Address: [address] [place] [address] Performed By: #### H CGQ #### [facility] Lab-CLIA#[id number] CLIA [id number] [address] [place] [address] Dimitri Herron, DO,FCAP ALP [Catalytic activity/Vol] 122 U/L High 46-116 [facility] Comment on above: Order Comment: Speci men Type: Unknown Relevant Clinical Information: POSITIVE COLOGUARD, POOR PREP Ordering Facility: [facility] Lab-CLIA#[id number] Address: [address] [place] [address] Performed By: #### H CGQ #### [facility] Lab-CLIA#[id number] CLIA [id number] [address] [place] [address] Dimitri Herron, DO,FCAP ALT [Catalytic activity/Vol] 22 U/L Normal 10-49 [facility] Comment on above: Order Comment: Speci men Type: Unknown Relevant Clinical Information: POSITIVE COLOGUARD, POOR PREP Ordering Facility: [facility] Lab-CLIA#[id number] Address: [address] [place] [address] Performed By: #### H CGQ #### [facility] Lab-CLIA#[id number] CLIA [id number] [address] [place] [address] Dimitri Herron, DO,FCAP AST [Catalytic activity/Vol] 21 U/L Normal <34 [facility] Comment on above: Order Comment: Speci men Type: Unknown Relevant Clinical Information: POSITIVE COLOGUARD, POOR PREP Ordering Facility: [facility] Lab-CLIA#[id number] Address: [address] [place] [address] Performed By: #### H CGQ #### [facility] Lab-CLIA#[id number] CLIA [id number] [address] [place] [address] Vincsherlyn Herron, DO,FCAP Bilirubin [Mass/Vol] 0.6 mg/dL Normal 0.3-1.2 [facility] Comment on above: Order Comment: Speci men Type: Unknown Relevant Clinical Information: POSITIVE COLOGUARD, POOR PREP Ordering Facility: [facility] Lab-CLIA#[id number] Address: [address] [place] [address] Performed By: #### H CGQ #### [facility] Lab-CLIA#[id number] CLIA [id number] [address] [place] [address] Dimitri Herron, DO,FCAP Bilirubin.indirect [Mass/Vol] 0.2 mg/dL Normal <0.4 [facility] Comment on above: Order Comment: Speci men Type: Unknown Relevant Clinical Information: POSITIVE COLOGUARD, POOR PREP Ordering Facility: [facility] Lab-CLIA#[id number] Address: [address] [place] [address] Performed By: #### H CGQ #### [facility] Lab-CLIA#[id number] CLIA [id number] [address] [place] [address] Dimitri Herron, DO,FCAP Protein [Mass/Vol] 8.2 g/dL Normal 5.7-8.2 [facility] Comment on above: Order Comment: Speci men Type: Unknown Relevant Clinical Information: POSITIVE COLOGUARD, POOR PREP Ordering Facility: [facility] Lab-CLIA#[id number] Address: [address] [place] [address] Performed By: #### H CGQ #### [facility] Lab-CLIA#[id number] CLIA [id number] [address] [place] [address] Dimitri Herron, DO,FCAP Lactic Acid Sepsis Reflexon 01-06-2023 Lactic Acid Sepsis Reflex 1.2 mmol/L Normal 0.5-2.0 [facility] Comment on above: Order Comment: Speci men Type: Unknown Relevant Clinical Information: Left flank pain, dizzy, vomiting Ordering Facility: [facility] Lab-CLIA#[id number] Address: [address] [place] [address] Performed By: #### L ACRFX #### [facility] Lab-CLIA#[id number] CLIA [id number] [address] [place] [address] Dimitri Herron DO,FCAP Lipaseon 01-06-2023 Lipase [Catalytic activity/Vol] 64 U/L High 12-53 [facility] Comment on above: Order Comment: Speci men Type: Unknown Relevant Clinical Information: POSITIVE COLOGUARD Ordering Facility: [facility] Address: , , Performed By: #### G LUCOMETER #### [facility] UA Reflex to Micro and Cultu reon 01-06-2023 Appearance (U) Turbid Abnormal Clear [facility] Comment on above: Order Comment: Speci men Type: Unknown Does the patient have one or more UTI symptoms? Y Clean Catch Reason for Study: Does the patient have one or more UTI symptoms? Y Relevant Clinical Information: Left flank pain, dizzy, vomiting Ordering Facility: [facility] Lab-CLIA#[id number] Address: [address] [place] [address] Performed By: #### U ORVILLE, UAMRFLX #### [facility] Lab-CLIA#[id number] CLIA [id number] [address] [place] [address] Dimitri Herron DO,FCAP Bilirubin Urine Negative Normal Negative [facility] Comment on above: Order Comment: Speci men Type: Unknown Does the patient have one or more UTI symptoms? Y Clean Catch Reason for Study: Does the patient have one or more UTI symptoms? Y Relevant Clinical Information: Left flank pain, dizzy, vomiting Ordering Facility: [facility] Lab-CLIA#[id number] Address: [address] [place] [address] Performed By: #### U ORV[place], UAMRFLX #### [facility] Lab-CLIA#[id number] CLIA [id number] [address] [place] [address] Dimitri Herron DO,FCAP Blood Urine Negative Normal Negative [facility] Comment on above: Order Comment: Speci men Type: Unknown Does the patient have one or more UTI symptoms? Y Clean Catch Reason for Study: Does the patient have one or more UTI symptoms? Y Relevant Clinical Information: Left flank pain, dizzy, vomiting Ordering Facility: [facility] Lab-CLIA#[id number] Address: [address] [place] [address] Performed By: #### U [place], UAMRFLX #### [facility] Lab-CLIA#[id number] CLIA [id number] [address] [place] [address] Dimitri Herron DO,FCAP Color (U) Dark Yellow Normal Yellow [facility] Comment on above: Order Comment: Speci men Type: Unknown Does the patient have one or more UTI symptoms? Y Clean Catch Reason for Study: Does the patient have one or more UTI symptoms? Y Relevant Clinical Information: Left flank pain, dizzy, vomiting Ordering Facility: [facility] Lab-CLIA#[id number] Address: [address] [place] [address] Performed By: #### U OR[place], UAMRFLX #### [facility] Lab-CLIA#[id number] CLIA [id number] [address] [place] [address] Dimitri Herron DO,FCAP Glucose Urine UA >=1000 Abnormal Negative [facility] Comment on above: Order Comment: Speci men Type: Unknown Does the patient have one or more UTI symptoms? Y Clean Catch Reason for Study: Does the patient have one or more UTI symptoms? Y Relevant Clinical Information: Left flank pain, dizzy, vomiting Ordering Facility: [facility] Lab-CLIA#[id number] Address: [address] [place] [address] Performed By: #### U ORV[place], UAMRFLX #### [facility] Lab-CLIA#[id number] CLIA [id number] [address] [place] [address] Dimitri Herron DO,FCAP Ketones Ql (U) Trace Abnormal Negative [facility] Comment on above: Order Comment: Speci men Type: Unknown Does the patient have one or more UTI symptoms? Y Clean Catch Reason for Study: Does the patient have one or more UTI symptoms? Y Relevant Clinical Information: Left flank pain, dizzy, vomiting Ordering Facility: [facility] Lab-CLIA#[id number] Address: [address] [place] [address] Performed By: #### U [place], UAMRFLX #### [facility] Lab-CLIA#[id number] CLIA [id number] [address] [place] [address] Dimitri Herron DO,FCAP Leukocyte Esterase Ur Negative Normal Negative [facility] Comment on above: Order Comment: Speci men Type: Unknown Does the patient have one or more UTI symptoms? Y Clean Catch Reason for Study: Does the patient have one or more UTI symptoms? Y Relevant Clinical Information: Left flank pain, dizzy, vomiting Ordering Facility: [facility] Lab-CLIA#[id number] Address: [address] [place] [address] Performed By: #### U [place], UAMRFLX #### [facility] Lab-CLIA#[id number] CLIA [id number] [address] [place] [address] Dimitri Herron DO,FCAP Nitrite Urine Negative Normal Negative [facility] Comment on above: Order Comment: Speci men Type: Unknown Does the patient have one or more UTI symptoms? Y Clean Catch Reason for Study: Does the patient have one or more UTI symptoms? Y Relevant Clinical Information: Left flank pain, dizzy, vomiting Ordering Facility: [facility] Lab-CLIA#[id number] Address: [address] [place] [address] Performed By: #### U [place], UAMRFLX #### [facility] Lab-CLIA#[id number] CLIA [id number] [address] [place] [address] Dimitri Herron DO,FCAP pH (U) 6.0 [pH] Normal <=7.5 [facility] Comment on above: Order Comment: Speci men Type: Unknown Does the patient have one or more UTI symptoms? Y Clean Catch Reason for Study: Does the patient have one or more UTI symptoms? Y Relevant Clinical Information: Left flank pain, dizzy, vomiting Ordering Facility: [facility] Lab-CLIA#[id number] Address: [address] [place] [address] Performed By: #### U [place], UAMRFLX #### [facility] Lab-CLIA#[id number] CLIA [id number] [address] [place] [address] Dimitri Herron DO,FCAP Protein Urine 30 Abnormal Negative [facility] Comment on above: Order Comment: Speci men Type: Unknown Does the patient have one or more UTI symptoms? Y Clean Catch Reason for Study: Does the patient have one or more UTI symptoms? Y Relevant Clinical Information: Left flank pain, dizzy, vomiting Ordering Facility: [facility] Lab-CLIA#[id number] Address: [address] [place] [address] Performed By: #### U [place], UAMRFLX #### [facility] Lab-CLIA#[id number] CLIA [id number] [address] [place] [address] Dimitri Herron DO,FCAP Specific Manquin Ur 1.041 High 1.005-1.025 [facility] Comment on above: Order Comment: Speci men Type: Unknown Does the patient have one or more UTI symptoms? Y Clean Catch Reason for Study: Does the patient have one or more UTI symptoms? Y Relevant Clinical Information: Left flank pain, dizzy, vomiting Ordering Facility: [facility] Lab-CLIA#[id number] Address: [address] [place] [address] Performed By: #### U [place], UAMRFLX #### [facility] Lab-CLIA#[id number] CLIA [id number] [address] [place] [address] Dimitri Herron DO,FCAP Urine Type Clean Catch Normal [facility] Comment on above: Order Comment: Speci men Type: Unknown Does the patient have one or more UTI symptoms? Y Clean Catch Reason for Study: Does the patient have one or more UTI symptoms? Y Relevant Clinical Information: Left flank pain, dizzy, vomiting Ordering Facility: [facility] Lab-CLIA#[id number] Address: [address] [place] [address] Performed By: #### U [place], UAMRFLX #### [facility] Lab-CLIA#[id number] CLIA [id number] [address] [place] [address] Dimitri Herron DO, FCAP Urobilinogen Urine 1.0 E.U./dL Normal 0-2.0 [facility] Comment on above: Order Comment: Speci men Type: Unknown Does the patient have one or more UTI symptoms? Y Clean Catch Reason for Study: Does the patient have one or more UTI symptoms? Y Relevant Clinical Information: Left flank pain, dizzy, vomiting Ordering Facility: [facility] Lab-CLIA#[id number] Address: [address] [place] [address] Performed By: #### U [place], UAMRFLX #### [facility] Lab-CLIA#[id number] CLIA [id number] [address] [place] [address] Dimitri Herron DO, FCAP Urine Cultureon 01-06-2023 Bacteria identified Cx Nom (U) Urine Culture: No growth at 100 CFU/ml or greater Normal [facility] Comment on above: Order Comment: Speci men Type: Unknown Relevant Clinical Information: POSITIVE COLOGUARD, POOR PREP Ordering Facility: [facility] Lab-CLIA#[id number] Address: [address] [place] [address] Performed By: #### H CGQ #### [facility] Lab-CLIA#[id number] CLIA [id number] [address] [place] [address] Dimitri Herron DO,FCAP Urine Microscopicon 01-07-20 23 Hyaline Casts Urine 4 /LPF Normal 0-5 [facility] Comment on above: Order Comment: Speci men Type: Unknown Does the patient have one or more UTI symptoms? Y Clean Catch Reason for Study: Does the patient have one or more UTI symptoms? Y Relevant Clinical Information: Left flank pain, dizzy, vomiting Ordering Facility: [facility] Lab-CLIA#[id number] Address: [address] [place] [address] Performed By: #### U [place], UAMRFLX #### [facility] Lab-CLIA#[id number] CLIA [id number] [address] [place] [address] Dimitri Herron DO,FCAP RBC LM.HPF (Urine sed) [#/Area] 4 /[HPF] Normal 0-5 [facility] Comment on above: Order Comment: Speci men Type: Unknown Does the patient have one or more UTI symptoms? Y Clean Catch Reason for Study: Does the patient have one or more UTI symptoms? Y Relevant Clinical Information: Left flank pain, dizzy, vomiting Ordering Facility: [facility] Lab-CLIA#[id number] Address: [address] [place] [address] Performed By: #### U [place], UAMRFLX #### [facility] Lab-CLIA#[id number] CLIA [id number] [address] [place] [address] Dimitri Herron DO,FCAP Squamous Epithelial Cell Urine >36 High 0-4 [facility] Comment on above: Order Comment: Speci men Type: Unknown Does the patient have one or more UTI symptoms? Y Clean Catch Reason for Study: Does the patient have one or more UTI symptoms? Y Relevant Clinical Information: Left flank pain, dizzy, vomiting Ordering Facility: [facility] Lab-CLIA#[id number] Address: [address] [place] [address] Performed By: #### U [place], UAMRFLX #### [facility] Lab-CLIA#[id number] CLIA [id number] [address] [place] [address] Dimitri Herron, DO,FCAP Urine Bacteria Many Abnormal None [facility] Comment on above: Order Comment: Speci men Type: Unknown Does the patient have one or more UTI symptoms? Y Clean Catch Reason for Study: Does the patient have one or more UTI symptoms? Y Relevant Clinical Information: Left flank pain, dizzy, vomiting Ordering Facility: [facility] Lab-CLIA#[id number] Address: [address] [place] [address] Performed By: #### U [place], UAMRFLX #### [facility] Lab-CLIA#[id number] CLIA [id number] [address] [place] [address] Dimitri Herron DO,FCAP WBC LM.HPF (Urine sed) [#/Area] 6 /[HPF] High 0-4 [facility] Comment on above: Order Comment: Speci men Type: Unknown Does the patient have one or more UTI symptoms? Y Clean Catch Reason for Study: Does the patient have one or more UTI symptoms? Y Relevant Clinical Information: Left flank pain, dizzy, vomiting Ordering Facility: [facility] Lab-CLIA#[id number] Address: [address] [place] [address] Performed By: #### U ORVILLE, UAMRFLX #### [facility] Lab-CLIA#[id number] CLIA [id number] [address] [place] [address] Dimitri Herron DO,FCAP Urine culture routineOrdered By: Mani Silvestre on 01-06-2023 Bacteria identified Cx Nom (U) [facility] Absolute lymphocyte countOrd ered By: Mani Silvestre on 01-05-2023 Lymphocytes Auto (Unsp spec) [#/Vol] 2.10 10*3/uL 0.80-3.30 [facility] Appearance urOrdered By: Joe Silvestre on 01-05-2023 Appearance (U) Turbid Clear [facility] Automated bacteria count in urine sediment (number/area)Ordered By: Mani Silvestre on 01-05-2023 Bacteria Auto (Urine sed) [#/Area] Many None [facility] Automated erythrocytes count in urine sediment (number/area)Ordered By: Mani Silvestre on 01-05-2023 RBC Auto (Urine sed) [#/Area] 4 /HPF 0-5 [facility] Automated non-squamous epith elial cells count in urine sediment (number/area)Ordered By: Mani Silvestre on 01-05-2023 Epithelial cells.non-squamous Auto (Urine sed) [#/Area] >36 /HPF 0-4 [facility] Automated urine leukocytes c ount (number/volume)Ordered By: Mani Silvestre on 01-05-2023 WBC Auto (U) [#/Vol] 6 /HPF 0-4 [facility] Basophils Auto (Bld) [#/Vol] Ordered By: Mani Silvestre on 01-05-2023 Basophils (Bld) [#/Vol] 0.02 10*3/uL 0.00-0.10 [facility] Basophils/100 WBC Auto (Bld) Ordered By: Mani Silvestre 01-05-2023 Basophils/100 WBC (Bld) 0.2 % 0.0-1.3 [facility] Bilirubin Auto test strip Ql (U)Ordered By: Mani Silvestre on 01-05-2023 Bilirubin Ql (U) Negative Negative [facility] Blood hemoglobin measurement (mass/volume)Ordered By: Mani Silvestre on 01-05-2023 Hemoglobin (Bld) [Mass/Vol] 16.1 g/dL 11.9-16.0 [facility] Direct bilirubin measurement Ordered By: Mani Silvestre 01-05-2023 Bilirubin.direct [Mass/Vol] 0.2 mg/dL 0.0-0.3 [facility] Eosinophils Auto (Bld) [#/Vo l]Ordered By: Mani Silvestre on 01-05-2023 Eosinophils (Bld) [#/Vol] 0.36 10*3/uL 0.00-0.50 [facility] Eosinophils/100 WBC Auto (Bl d)Ordered By: Mani Silvestre on 01-05-2023 Eosinophils/100 WBC (Bld) 3.0 % 0.0-5.8 [facility] Erythrocyte distribution wid th Auto (RBC) [Ratio]Ordered By: Mani Silvestre on 01-05-2023 Erythrocyte distribution width (RBC) [Ratio] 15.9 % 11.6-14.8 [facility] Glomerular filtration rate ( GFR) estimation/1.73 sq m using creatinine measurement wiOrdered By: Mani Silvestre on 01-05-2023 GFR/1.73 sq M.predicted CKD-EPI (S/P/Bld) [Vol rate/Area] 59 mL/min >60 [facility] Comment on above: K/DOQI Guideline:Sta ge 1 [...] ( test) Ql Negative Negative [facility] Hematocrit Auto (Bld) [Volum e fraction]Ordered By: Mani Silvestre on 01-05-2023 Hematocrit (Bld) [Volume fraction] 49.5 % 35.4-47.9 [facility] Hyaline casts detection in u rine sediment by light microscopyOrdered By: Mani Silvestre on 01-05-2023 Hyaline casts LM Ql (Urine sed) 4 /LPF 0-5 [facility] Ketones Auto test strip (U) [Mass/Vol]Ordered By: Mani Silvestre on 01-05-2023 Ketones (U) [Mass/Vol] Trace Negative So [facility] - Chemistry and C hemistry - challengeOrdered By: Mani Silvestre on 01-05-2023 Anion gap [Moles/Vol] 12 mmol/L 7-17 [facility] Lymphocytes/100 WBC Auto (Bl d)Ordered By: Mani Silvestre on 01-05-2023 Lymphocytes/100 WBC (Bld) 17.7 % 13.4-45.1 [facility] MCH Auto (RBC) [Entitic mass ]Ordered By: Mani Silvestre on 01-05-2023 MCH (RBC) [Entitic mass] 28.1 pg 27.2-33.0 [facility] MCHC Auto (RBC) [Mass/Vol]Or dered By: Mani Silvestre on 01-05-2023 MCHC (RBC) [Mass/Vol] 32.5 g/dL 31.9-35.1 [facility] MCV (mean corpuscular volume ) determinationOrdered By: Mani Silvestre on 01-05-2023 MCV (RBC) [Entitic vol] 86.4 fL 82.1-97.1 [facility] Monocytes Auto (Bld) [#/Vol] Ordered By: Mani Silvestre on 01-05-2023 Monocytes (Bld) [#/Vol] 0.61 10*3/uL 0.30-0.90 [facility] Monocytes/100 WBC Auto (Bld) Ordered By: Mani Silvestre on 01-05-2023 Monocytes/100 WBC (Bld) 5.1 % 4.0-12.7 [facility] Neutrophils Auto (Bld) [#/Vo l]Ordered By: Mani Silvestre on 01-05-2023 Neutrophils (Bld) [#/Vol] 8.73 10*3/uL 1.70-7.00 [facility] Neutrophils/100 WBC Auto (Bl d)Ordered By: Mani Silvestre on 01-05-2023 Neutrophils/100 WBC (Bld) 73.6 % 41.1-75.9 [facility] No Panel InformationOrdered By: Mani Silvestre on 01-05-2023 Pharmacy Creatinine Clearance (Chem 60 [facility] Platelet mean volume Auto (B ld) [Entitic vol]Ordered By: Mani Silvestre on 01-05-2023 Platelet mean volume (Bld) [Entitic vol] 12.3 fL 8.6-12.2 [facility] Platelets Auto (Bld) [#/Vol] Ordered By: Mani Silvestre on 01-05-2023 Platelets (Bld) [#/Vol] 270 10*3/uL 133-425 [facility] Protein Auto test strip (U) [Mass/Vol]Ordered By: Mani Silvestre on 01-05-2023 Protein (U) [Mass/Vol] 30 mg/dL Negative So [facility] RBC Auto (Bld) [#/Vol]Ordere d By: Mani Silvestre on 01-05-2023 RBC (Bld) [#/Vol] 5.73 10*6/uL 3.40-5.40 [facility] Serum or plasma alanine gonzalez otransferase measurement with P-5'-P (enzymatic activity/Ordered By: Mani Silvestre 01-05-2023 ALT With P-5'-P [Catalytic activity/Vol] 22 U/L 10-49 [facility] Serum or plasma albumin lenny urement by bromocresol purple (BCP) dye binding method (mOrdered By: Mani Silvestre on 01-05-2023 Albumin BCP dye [Mass/Vol] 4.4 g/dL 3.4-5.0 [facility] Serum or plasma alkaline husam sphatase measurement (enzymatic activity/volume)Ordered By: Mani Silvestre 01-05-2023 ALP [Catalytic activity/Vol] 122 U/L 46-116 [facility] Serum or plasma amylase lenny urement (enzymatic activity/volume)Ordered By: Mani Silvestre 01-05-2023 Amylase [Catalytic activity/Vol] 108 U/L 30-118 [facility] Serum or plasma aspartate am inotransferase measurement with P-5'-P (enzymatic activitOrdered By: Mani Silvestre on 01-05-2023 AST With P-5'-P [Catalytic activity/Vol] 21 U/L 0-33 [facility] Serum or plasma calcium lenny urement (mass/volume)Ordered By: Mani Silvestre on 01-05-2023 Calcium [Mass/Vol] 9.7 mg/dL 8.3-10.6 [facility] Serum or plasma chloride cydney surement (moles/volume)Ordered By: Mani Silvestre on 01-05-2023 Chloride [Moles/Vol] 104 mmol/L 98-107 [facility] Serum or plasma creatinine m easurement (mass/volume)Ordered By: Mani Silvestre on 01-05-2023 Creatinine [Mass/Vol] 1.070 mg/dL 0.55-1.02 So [facility] Serum or plasma glucose lenny urement (mass/volume)Ordered By: Mani Silvestre on 01-05-2023 Glucose [Mass/Vol] 128 mg/dL 74-106 [facility] Serum or plasma lactate lenny urement (moles/volume)Ordered By: Mani Silvestre on 01-05-2023 Lactate [Moles/Vol] 1.2 mmol/L 0.5-2.0 [facility] Serum or plasma lipase measu rement (enzymatic activity/volume)Ordered By: Mani Silvestre 01-05-2023 Lipase [Catalytic activity/Vol] 64 U/L 12-53 [facility] Serum or plasma potassium me asurement (moles/volume)Ordered By: Mani Silvestre on 01-05-2023 Potassium [Moles/Vol] 3.9 mmol/L 3.5-5.1 [facility] Serum or plasma sodium measu rement (moles/volume)Ordered By: Mani Silvestre 01-05-2023 Sodium [Moles/Vol] 139 mmol/L 136-145 [facility] Serum or plasma total biliru bin measurement (mass/volume)Ordered By: Mani Silvestre 01-05-2023 Bilirubin [Mass/Vol] 0.6 mg/dL 0.3-1.2 [facility] Serum or plasma total carbon dioxide measurement (moles/volume)Ordered By: Mani Silvestre on 01-05-2023 CO2 [Moles/Vol] 27 mmol/L [facility] Serum or plasma urea nitroge n measurement (mass/volume)Ordered By: Mani Silvestre on 01-05-2023 Urea nitrogen [Mass/Vol] 17 mg/dL 9- [facility] Serum total protein measurem ent (mass/volume)Ordered By: Mani Silvestre on 01-05-2023 Protein [Mass/Vol] 8.2 g/dL 5.7-8.2 [facility] Urine blood detectionOrdered By: Mani Silvestre on 01-05-2023 RBC Ql (U) Negative Negative [facility] Urine colorOrdered By: Mani Silvestre on 01-05-2023 Color (U) Dark Yellow Yellow [facility] Urine culture routineOrdered By: Mani Silvestre on 01-05-2023 Bacteria identified Cx Nom (U) [facility] Urine glucose measurement by automated test strip (mass/volume)Ordered By: Mani Silvestre on 01-05-2023 Glucose Auto test strip (U) [Mass/Vol] >=1000 mg/dL Negative [facility] Urine leukocyte esterase det ection by automated test stripOrdered By: Mani Silvestre on 01-05-2023 Leukocyte esterase Auto test strip Ql (U) Negative Negative [facility] Urine nitrite detection by a utomated test stripOrdered By: Mani Silvestre on 01-05-2023 Nitrite Auto test strip Ql (U) Negative Negative [facility] Urine pHOrdered By: Mani espinoza on 01-05-2023 pH (U) 6.0 [pH] 0-7.5 [facility] Urine specific gravity measu rementOrdered By: Mani Silvestre on 01-05-2023 Specific gravity (U) [Rel density] 1.041 1.005-1.025 [facility] Urine urobilinogen measureme ntOrdered By: Mani Silvestre on 01-05-2023 Urobilinogen Ql (U) 1.0 E.U./dL 0-2.0 [facility] WBC Auto (Bld) [#/Vol]Ordere d By: Mani Silvestre on 01-05-2023 WBC (Bld) [#/Vol] 11.9 10*3/uL 4.5-11.0 [facility] Noteon 3 Urgent Care Note [facility] [address] [place] [address] Urgent Care Note Signed Patient: Amy Naidu MR#: [id number] : 1975 Acct: [id number] Age/Sex: 47 / F Loc: [facility]. Date of Service: 01/03/[address]: Tamara Espinosa APRN, JEEP DRIVER cc: Chago Edwards V. DO Intake Vital [...] and colleagues, with an educational michelle from [employer]. .. Do you need a note to [...] discharge, abdominal pain. no other symptoms reported. PFSH PFSH Medical History Diabetes History of [...] cyst Hypertension Questionnaire C-SSRS (Primary Care) [facility] [employer] Review of Systems [facility] Information given by: patient Const Denies body aches, Denies chills, Denies fatigue, Denies fever(s), Denies headache(s) and Denies weakness ENT Denies dysphagia, (more content not included)... Normal [facility] Urinalysis Routine Dipstick POCon 01-03-2023 Appearance (U) Slightly Cloudy Normal Clear [facility] Comment on above: Order Comment: Speci men Type: Unknown Relevant Clinical Information: UTI Symptoms Ordering Facility: [facility] Address: , , Performed By: #### P OCUA #### [facility] CLIA [id number] Ur Specific Manquin 1.020 Normal 1.000-1.030 [facility] Comment on above: Order Comment: Speci men Type: Unknown Relevant Clinical Information: UTI Symptoms Ordering Facility: [facility] Address: , , Performed By: #### P OCUA #### [facility] CLIA [id number] Urine Bilirubin POC Negative Normal Negative [facility] Comment on above: Order Comment: Speci men Type: Unknown Relevant Clinical Information: UTI Symptoms Ordering Facility: [facility] Address: , , Performed By: #### P OCUA #### [facility] CLIA [id number] Urine Blood POC Negative Normal Negative [facility] Comment on above: Order Comment: Speci men Type: Unknown Relevant Clinical Information: UTI Symptoms Ordering Facility: [facility] Address: , , Performed By: #### P OCUA #### [facility] CLIA [id number] Urine Color POC Yellow Normal Yellow [facility] Comment on above: Order Comment: Speci men Type: Unknown Relevant Clinical Information: UTI Symptoms Ordering Facility: [facility] Address: , , Performed By: #### P OCUA #### [facility] CLIA [id number] Urine Glucose POC >=1000 Abnormal Negative [facility] Comment on above: Order Comment: Speci men Type: Unknown Relevant Clinical Information: UTI Symptoms Ordering Facility: [facility] Address: , , Performed By: #### P OCUA #### [facility] CLIA [id number] Urine Ketones POC Trace Abnormal Negative [facility] Comment on above: Order Comment: Speci men Type: Unknown Relevant Clinical Information: UTI Symptoms Ordering Facility: [facility] Address: , , Performed By: #### P OCUA #### [facility] CLIA [id number] Urine Leukocyte Esterase POC Negative Normal Negative [facility] Comment on above: Order Comment: Speci men Type: Unknown Relevant Clinical Information: UTI Symptoms Ordering Facility: [facility] Address: , , Performed By: #### P OCUA #### [facility] CLIA [id number] Urine Nitrites POC Negative Normal Negative [facility] Comment on above: Order Comment: Speci men Type: Unknown Relevant Clinical Information: UTI Symptoms Ordering Facility: [facility] Address: , , Performed By: #### P OCUA #### [facility] CLIA [id number] Urine pH POC 6.0 Normal <=7.5 [facility] Comment on above: Order Comment: Speci men Type: Unknown Relevant Clinical Information: UTI Symptoms Ordering Facility: [facility] Address: , , Performed By: #### P OCUA #### [facility] CLIA [id number] Urine Protein POC Negative Normal Negative [facility] Comment on above: Order Comment: Speci men Type: Unknown Relevant Clinical Information: UTI Symptoms Ordering Facility: [facility] Address: , , Performed By: #### P OCUA #### [facility] CLIA [id number] Urine Urobilinogen POC 1.0 E.U./dL Normal 0-1.9 [facility] Comment on above: Order Comment: Speci men Type: Unknown Relevant Clinical Information: UTI Symptoms Ordering Facility: [facility] Address: , , Performed By: #### P OCUA #### [facility] CLIA [id number] Urine Cultureon 01-03-2023 Bacteria identified Cx Nom (U) Urine Culture: No growth at 100 CFU/ml or greater Normal [facility] Comment on above: Order Comment: Speci men Type: Unknown Does the patient have one or more UTI symptoms? Y Clean Catch Reason for Study: Does the patient have one or more UTI symptoms? Y Relevant Clinical Information: Left flank pain, dizzy, vomiting Ordering Facility: [facility] Lab-CLIA#[id number] Address: [address] [place] [address] Performed By: #### U [place], UAMRFLX #### [facility] Lab-CLIA#[id number] CLIA [id number] [address] [place] [address] Dimitri Herron DO, FCAP Urine culture routineOrdered By: Tamara Espinosa on 01-03-2023 Bacteria identified Cx Nom (U) [facility] Bacteria identified Cx Nom (U) [facility] Absolute lymphocyte countOrd ered By: Solo Sanchez on 06-02-2022 Lymphocytes Auto (Unsp spec) [#/Vol] 3.40 10*3/uL 0.80-3.30 [facility] Aerobic and anaerobic cultur e blood cultureOrdered By: Solo Sanchez on 06-02-2022 Bacteria identified Anaer+Aer cx Nom (Unsp spec) Time of report was 120 hours. [facility] Bacteria identified Anaer+Aer cx Nom (Unsp spec) Time of report was 120 hours. [facility] Appearance urOrdered By: Solo Sanchez on 06-02-2022 Appearance (U) Clear Clear [facility] Basophils Auto (Bld) [#/Vol] Ordered By: Solo Sanchez on 06-02-2022 Basophils (Bld) [#/Vol] 0.06 10*3/uL 0.00-0.10 [facility] Basophils/100 WBC Auto (Bld) Ordered By: Solo Sanchez on 06-02-2022 Basophils/100 WBC (Bld) 0.6 % 0.0-1.3 [facility] Bilirubin Auto test strip Ql (U)Ordered By: Solo Sanchez on 06-02-2022 Bilirubin Ql (U) Negative Negative [facility] Blood hemoglobin measurement (mass/volume)Ordered By: Solo Sanchez on 06-02-2022 Hemoglobin (Bld) [Mass/Vol] 13.7 g/dL 11.9-16.0 [facility] Direct bilirubin measurement Ordered By: Solo Sanchez on 06-02-2022 Bilirubin.direct [Mass/Vol] mg/dL 0.0-0.3 [facility] Eosinophils Auto (Bld) [#/Vo l]Ordered By: Solo Sanchez on 06-02-2022 Eosinophils (Bld) [#/Vol] 0.19 10*3/uL 0.00-0.50 [facility] Eosinophils/100 WBC Auto (Bl d)Ordered By: Solo Sanchez on 06-02-2022 Eosinophils/100 WBC (Bld) 1.9 % 0.0-5.8 [facility] Erythrocyte distribution wid th Auto (RBC) [Ratio]Ordered By: Solo Sanchez on 06-02-2022 Erythrocyte distribution width (RBC) [Ratio] 15.6 % 11.6-14.8 [facility] Glomerular filtration rate ( GFR) estimation/1.73 sq m using creatinine measurement wiOrdered By: Solo Sanchez on 06-02-2022 GFR/1.73 sq M.predicted CKD-EPI (S/P/Bld) [Vol rate/Area] 83 mL/min >60 [facility] Comment on above: K/DOQI Guideline:Sta ge 1 [...] HCG ( test) Ql Negative Negative S [facility] Hematocrit Auto (Bld) [Volum e fraction]Ordered By: Solo Sanchez on 06-02-2022 Hematocrit (Bld) [Volume fraction] 43.0 % 35.4-47.9 [facility] Ketones Auto test strip (U) [Mass/Vol]Ordered By: Solo Sanchez on 06-02-2022 Ketones (U) [Mass/Vol] Negative Negative So [facility] Lymphocytes/100 WBC Auto (Bl d)Ordered By: Solo Sanchez on 06-02-2022 Lymphocytes/100 WBC (Bld) 34.7 % 13.4-45.1 [facility] MCH Auto (RBC) [Entitic mass ]Ordered By: Solo Sanchez on 06-02-2022 MCH (RBC) [Entitic mass] 28.0 pg 27.2-33.0 [facility] MCHC Auto (RBC) [Mass/Vol]Or dered By: Solo Sanchez on 06-02-2022 MCHC (RBC) [Mass/Vol] 31.9 g/dL 31.9-35.1 [facility] MCV (mean corpuscular volume ) determinationOrdered By: Solo Sanchez on 06-02-2022 MCV (RBC) [Entitic vol] 87.8 fL 82.1-97.1 S [facility] Monocytes Auto (Bld) [#/Vol] Ordered By: Solo Sanchez on 06-02-2022 Monocytes (Bld) [#/Vol] 0.86 10*3/uL 0.30-0.90 [facility] Monocytes/100 WBC Auto (Bld) Ordered By: Solo Sanchez on 06-02-2022 Monocytes/100 WBC (Bld) 8.8 % 4.0-12.7 [facility] Neutrophils Auto (Bld) [#/Vo l]Ordered By: Solo Sanchez on 06-02-2022 Neutrophils (Bld) [#/Vol] 5.28 10*3/uL 1.70-7.00 [facility] Neutrophils/100 WBC Auto (Bl d)Ordered By: Solo Sanchez on 06-02-2022 Neutrophils/100 WBC (Bld) 53.8 % 41.1-75.9 [facility] No Panel InformationOrdered By: Solo Sanchez on 06-02-2022 Pharmacy Creatinine Clearance (Chem 80 [facility] Platelet mean volume Auto (B ld) [Entitic vol]Ordered By: Solo Sanchez on 06-02-2022 Platelet mean volume (Bld) [Entitic vol] 12.2 fL 8.6-12.2 [facility] Platelets Auto (Bld) [#/Vol] Ordered By: Solo Sanchez on 06-02-2022 Platelets (Bld) [#/Vol] 266 10*3/uL 133-425 [facility] Protein Auto test strip (U) [Mass/Vol]Ordered By: Solo Sanchez on 06-02-2022 Protein (U) [Mass/Vol] Negative Negative So [facility] RBC Auto (Bld) [#/Vol]Ordere d By: Solo Sanchez on 06-02-2022 RBC (Bld) [#/Vol] 4.90 10*6/uL 3.40-5.40 [facility] Serum or plasma alanine gonzalez otransferase measurement with P-5'-P (enzymatic activity/Ordered By: Solo Sanchez on 06-02-2022 ALT With P-5'-P [Catalytic activity/Vol] 42 U/L 10-49 [facility] Serum or plasma albumin lenny urement by bromocresol purple (BCP) dye binding method (mOrdered By: Solo Sanchez on 06-02-2022 Albumin BCP dye [Mass/Vol] 3.8 g/dL 3.4-5.0 [facility] Serum or plasma alkaline husam sphatase measurement (enzymatic activity/volume)Ordered By: Solo Sanchez on 06-02-2022 ALP [Catalytic activity/Vol] 98 U/L 46-116 [facility] Serum or plasma aspartate am inotransferase measurement with P-5'-P (enzymatic activitOrdered By: Solo Sanchez on 06-02-2022 AST With P-5'-P [Catalytic activity/Vol] 23 U/L 0-33 [facility] Serum or plasma calcium lenny urement (mass/volume)Ordered By: Solo Sanchez on 06-02-2022 Calcium [Mass/Vol] 9.1 mg/dL 8.3-10.6 [facility] Serum or plasma cardiac trop onin I measurement (mass/volume)Ordered By: Solo Sanchez on 06-02-2022 Troponin I.cardiac [Mass/Vol] 3.48 pg/mL 0-45.19 [facility] Comment on above: Troponin-I High Sens itivity Reference Range: <45.20 Negative, repeat testing in 3 hours if clinically indicated. >=45.20 Indicative of myocardial injury. Erroneous results may be obtained with patients taking high dose biotin supplements. Serum or plasma chloride cydney surement (moles/volume)Ordered By: Solo Sanchez on 06-02-2022 Chloride [Moles/Vol] 110 mmol/L 98-107 [facility] Serum or plasma creatinine m easurement (mass/volume)Ordered By: Solo Sanchez on 06-02-2022 Creatinine [Mass/Vol] 0.799 mg/dL 0.55-1.02 So [facility] Serum or plasma glucose lenny urement (mass/volume)Ordered By: Solo Sanchez on 06-02-2022 Glucose [Mass/Vol] 140 mg/dL 74-106 [facility] Serum or plasma lactate lenny urement (moles/volume)Ordered By: Solo Sanchez on 06-02-2022 Lactate [Moles/Vol] 1.5 mmol/L 0.5-2.0 [facility] Serum or plasma lipase measu rement (enzymatic activity/volume)Ordered By: Solo Sanchez on 06-02-2022 Lipase [Catalytic activity/Vol] 56 U/L 12-53 [facility] Serum or plasma potassium me asurement (moles/volume)Ordered By: Solo Sanchez on 06-02-2022 Potassium [Moles/Vol] 4.6 mmol/L 3.5-5.1 [facility] Serum or plasma sodium measu rement (moles/volume)Ordered By: Solo Sanchez on 06-02-2022 Sodium [Moles/Vol] 144 mmol/L 136-145 Jorge [facility] Serum or plasma total biliru bin measurement (mass/volume)Ordered By: Solo Sanchez on 06-02-2022 Bilirubin [Mass/Vol] 0.3 mg/dL 0.3-1.2 [facility] Serum or plasma total carbon dioxide measurement (moles/volume)Ordered By: Solo Sanchez on 06-02-2022 CO2 [Moles/Vol] 27 mmol/L 20-31 [facility] Serum or plasma urea nitroge n measurement (mass/volume)Ordered By: Solo Sanchez on 06-02-2022 Urea nitrogen [Mass/Vol] 9 mg/dL 9-23 [facility] Serum total protein measurem ent (mass/volume)Ordered By: Solo Sanchez on 06-02-2022 Protein [Mass/Vol] 7.3 g/dL 5.7-8.2 Jorge [facility] Urine blood detectionOrdered By: Solo Sanchez on 06-02-2022 RBC Ql (U) Negative Negative [facility] Urine colorOrdered By: Solo alvarado on 06-02-2022 Color (U) Yellow Yellow [facility] Urine glucose measurement by automated test strip (mass/volume)Ordered By: Solo Sanchez on 06-02-2022 Glucose Auto test strip (U) [Mass/Vol] >=1000 mg/dL Negative [facility] Urine leukocyte esterase det ection by automated test stripOrdered By: Solo Sanchez on 06-02-2022 Leukocyte esterase Auto test strip Ql (U) Negative Negative [facility] Urine nitrite detection by a utomated test stripOrdered By: Solo Sanchez on 06-02-2022 Nitrite Auto test strip Ql (U) Negative Negative [facility] Urine pHOrdered By: Solo sesay on 06-02-2022 pH (U) 5.5 [pH] 0-7.5 [facility] Urine specific gravity measu rementOrdered By: Solo Sanchez on 06-02-2022 Specific gravity (U) [Rel density] 1.049 1.005-1.025 [facility] Urine urobilinogen measureme ntOrdered By: Solo Sanchez on 06-02-2022 Urobilinogen Ql (U) 1.0 E.U./dL 0-2.0 [facility] WBC Auto (Bld) [#/Vol]Ordere d By: Solo Sanchez on 06-02-2022 WBC (Bld) [#/Vol] 9.8 10*3/uL 4.5-11.0 [facility] Absolute lymphocyte counton 12-18-2021 Lymphocytes Auto (Unsp spec) [#/Vol] 2.94 10*3/uL 0.80-3.30 [facility] Work Phone: Appearance uron 12-18-2021 Appearance (U) Turbid Clear [facility] Work Phone: Automated bacteria count in urine sediment (number/area)on 12-18-2021 Bacteria Auto (Urine sed) [#/Area] Many None [facility] Work Phone: Automated erythrocytes count in urine sediment (number/area)on 12-18-2021 RBC Auto (Urine sed) [#/Area] 19 /HPF 0-5 [facility] Work Phone: Automated non-squamous epith elial cells count in urine sediment (number/area)on 12-18-2021 Epithelial cells.non-squamous Auto (Urine sed) [#/Area] 5 /HPF 0-4 [facility] Work Phone: Automated urine leukocytes c ount (number/volume)on 12-18-2021 WBC Auto (U) [#/Vol] 20 /HPF 0-4 [facility] Work Phone: Basophils Auto (Bld) [#/Vol] on 12-18-2021 Basophils (Bld) [#/Vol] 0.04 10*3/uL 0.00-0.10 [facility] Work Phone: Basophils/100 WBC Auto (Bld) on 12-18-2021 Basophils/100 WBC (Bld) 0.4 % 0.0-1.3 S outhern [facility] Work Phone: Bilirubin Auto test strip Ql (U)on 12-18-2021 Bilirubin Ql (U) Small Negative [facility] Work Phone: [phone] Blood hemoglobin measurement (mass/volume)on 12-18-2021 Hemoglobin (Bld) [Mass/Vol] 12.9 g/dL 11.9-16.0 [facility] Work Phone: Calcium oxalate crystals det ection in urine sediment by light microscopyon 12-18-2021 Calcium oxalate crystals LM Ql (Urine sed) Present None [facility] Work Phone: Eosinophils Auto (Bld) [#/Vo l]on 12-18-2021 Eosinophils (Bld) [#/Vol] 0.09 10*3/uL 0.00-0.50 [facility] Work Phone: Eosinophils/100 WBC Auto (Bl d)on 12-18-2021 Eosinophils/100 WBC (Bld) 1.0 % 0.0-5.8 [facility] Work Phone: Erythrocyte distribution wid th Auto (RBC) [Ratio]on 12-18-2021 Erythrocyte distribution width (RBC) [Ratio] 15.8 % 11.6-14.8 [facility] Work Phone: [phone] Glomerular filtration rate ( GFR) estimation/1.73 sq m using creatinine measurement wion 12-18-2021 GFR/1.73 sq M.predicted CKD-EPI (S/P/Bld) [Vol rate/Area] 84 mL/min >60 [facility] Work Phone: Comment on above: K/DOQI Guideline:Sta [...] Hematocrit (Bld) [Volume fraction] 40.5 % 35.4-47.9 [facility] Work Phone: Hyaline casts detection in u rine sediment by light microscopyon 12-18-2021 Hyaline casts LM Ql (Urine sed) 8 /LPF 0-5 [facility] Work Phone: Ketones Auto test strip (U) [Mass/Vol]on 12-18-2021 Ketones (U) [Mass/Vol] Trace Negative So uthern [facility] Work Phone: Laboratory - Chemistry and C hemistry - challengeon 12-18-2021 Glucose [Mass/Vol] 216 mg/dL 70-110 Jorge quinonez [facility] Work Phone: Lymphocytes/100 WBC Auto (Bl d)on 12-18-2021 Lymphocytes/100 WBC (Bld) 31.6 % 13.4-45.1 [facility] Work Phone: MCH Auto (RBC) [Entitic mass ]on 12-18-2021 MCH (RBC) [Entitic mass] 26.7 pg 27.2-33.0 [facility] Work Phone: MCHC Auto (RBC) [Mass/Vol]on 12-18-2021 MCHC (RBC) [Mass/Vol] 31.9 g/dL 31.9-35.1 [facility] Work Phone: MCV (mean corpuscular volume ) determinationon 12-18-2021 MCV (RBC) [Entitic vol] 83.9 fL 82.1-97.1 S [facility] Work Phone: Monocytes Auto (Bld) [#/Vol] on 12-18-2021 Monocytes (Bld) [#/Vol] 0.58 10*3/uL 0.30-0.90 [facility] Work Phone: Monocytes/100 WBC Auto (Bld) on 12-18-2021 Monocytes/100 WBC (Bld) 6.2 % 4.0-12.7 S [facility] Work Phone: Neutrophils Auto (Bld) [#/Vo l]on 12-18-2021 Neutrophils (Bld) [#/Vol] 5.63 10*3/uL 1.70-7.00 [facility] Work Phone: Neutrophils/100 WBC Auto (Bl d)on 12-18-2021 Neutrophils/100 WBC (Bld) 60.5 % 41.1-75.9 [facility] Work Phone: No Panel Informationon 12-18 Pharmacy Creatinine Clearance (Chem 82 [facility] Work Phone: Platelet mean volume Auto (B ld) [Entitic vol]on 12-18-2021 Platelet mean volume (Bld) [Entitic vol] 12.7 fL 8.6-12.2 [facility] Work Phone: Platelets Auto (Bld) [#/Vol] on 12-18-2021 Platelets (Bld) [#/Vol] 288 10*3/uL 133-425 [facility] Work Phone: Protein Auto test strip (U) [Mass/Vol]on 12-18-2021 Protein (U) [Mass/Vol] 100 mg/dL Negative So [facility] Work Phone: RBC Auto (Bld) [#/Vol]on RBC (Bld) [#/Vol] 4.83 10*6/uL 3.40-5.40 [facility] Work Phone: SARS-CoV-2 (COVID-19) RNA [P resence] in Nasopharynx by TK with probe detectionon 12-18-2021 SARS-CoV-2 (COVID-19) RNA TK+probe Ql (Nph) Not detected Not Detect [facility] Work Phone: Comment on above: Method: Real-time [...] RdRp gene TK+probe Ql (Resp) Negative Negative [facility] Work Phone: Comment on above: The sensitivity of t he assay is dependent on the quality of the specimen collected for testing. The assay is performed on the [employer] instrument utilizing isothermal nucleic acid amplification technology. [...] 12-18-2021 Calcium [Mass/Vol] 8.2 mg/dL 8.3-10.6 Jorge [facility] Work Phone: Serum or plasma cardiac trop onin I measurement (mass/volume)on 12-18-2021 Troponin I.cardiac [Mass/Vol] 6.72 pg/mL 0-45.20 [facility] Work Phone: Comment on above: Troponin-I High Sens itivity Reference Range: <45.20 Negative, repeat testing in 3 hours if clinically indicated. >=45.20 Indicative of myocardial injury. Erroneous results may be obtained with patients taking high dose biotin supplements. Serum or plasma chloride cydney surement (moles/volume)on 12-18-2021 Chloride [Moles/Vol] 107 mmol/L 98-107 Tigre [facility] Work Phone: [phone] Serum or plasma creatinine m easurement (mass/volume)on 12-18-2021 Creatinine [Mass/Vol] 0.792 mg/dL 0.55-1.02 So [facility] Work Phone: Serum or plasma glucose lenny urement (mass/volume)on 12-18-2021 Glucose [Mass/Vol] 249 mg/dL 74-106 Jorge [facility] Work Phone: Serum or plasma potassium me asurement (moles/volume)on 09-17-2022 Potassium [Moles/Vol] 4.4 mmol/L 3.5-5.1 Na longn [facility] Work Phone: Serum or plasma sodium measu rement (moles/volume)on 12-18-2021 Sodium [Moles/Vol] 138 mmol/L 136-145 Jorge [facility] Work Phone: [phone] Serum or plasma total carbon dioxide measurement (moles/volume)on 12-18-2021 CO2 [Moles/Vol] 24 mmol/L [facility] Work Phone: [phone] Serum or plasma urea nitroge n measurement (mass/volume)on 12-18-2021 Urea nitrogen [Mass/Vol] 8 mg/dL 12-24 [facility] Work Phone: Urine blood detectionon 12-02 RBC Ql (U) Negative Negative [facility] Work Phone: [phone] Urine coloron 12-18-2021 Color (U) Dark Yellow Yellow [facility] Work Phone: [phone] Urine glucose measurement by automated test strip (mass/volume)on 12-18-2021 Glucose Auto test strip (U) [Mass/Vol] >=1000 mg/dL Negative [facility] Work Phone: [phone] Urine leukocyte esterase det ection by automated test stripon 12-18-2021 Leukocyte esterase Auto test strip Ql (U) Negative Negative [facility] Work Phone: [phone] Urine nitrite detection by a utomated test stripon 12-18-2021 Nitrite Auto test strip Ql (U) Negative Negative [facility] Work Phone: Urine pHon 12-18-2021 pH (U) 6.5 [pH] 0-7.5 [facility] Work Phone: Urine specific gravity measu rementon 12-18-2021 Specific gravity (U) [Rel density] 1.038 1.005-1.025 [facility] Work Phone: Urine urobilinogen measureme nton 12-18-2021 Urobilinogen Ql (U) 2.0 E.U./dL 0-2.0 Nat mary jo [facility] Work Phone: WBC Auto (Bld) [#/Vol]on WBC (Bld) [#/Vol] 9.3 10*3/uL 4.5-11.0 Jorge quinonez [facility] Work Phone: BASIC METABOLIC PANELon 11-01 Anion gap [Moles/Vol] 7 mmol/L Normal [facility] Comment on above: Performed By: #### L [id number] #### [facility] [address] [place] [address] B/C 22 High 10-20 [facility] Comment on above: Performed By: #### L [id number] #### [facility] [address] [place] [address]10 Calcium [Mass/Vol] 8.6 mg/dL Normal 8.5-10.5 [facility] Comment on above: Performed By: #### L AF1911 #### [facility] [address] [place] [address] 95945 Chloride [Moles/Vol] 104 mmol/L Normal 101-111 [facility] Comment on above: Performed By: #### L AT1642 #### [facility] [address] [place] [address] 67910 CO2 [Moles/Vol] 30 mmol/L Normal 21-31 [facility] Comment on above: Performed By: #### L FV7495 #### [facility] [address] [place] [address] 37596 Creatinine [Mass/Vol] 0.6 mg/dL Normal 0.4-1.0 [facility] Comment on above: Performed By: #### L HG3603 #### [facility] [address] [place] [address]646 GFR/1.73 sq M.predicted MDRD (S/P/Bld) [Vol rate/Area] mL/min/{1.73_m2} Normal [facility] Comment on above: Result Comment: *The estimated Glomerular Filtration Rate(EGFR) may not be accurate for children under the age of 18 yrs. To estimate the GFR for -Americans multiply the result provided by 1.21. Stage 1 90 mL/min or greater Stage 2 60-89 mL/min Stage 3 30-59 mL/min Stage 4 15-29 mL/min Stage 5 14 mL/min or less Performed By: #### L [id number] #### [facility] [address] [place] [address] Glucose [Mass/Vol] 109 mg/dL Normal 70-110 [facility] Comment on above: Performed By: #### L FL2241 #### [facility] [address] [place] [address] 23433 Osmolality [Osmolality] 282 mosm/kg Normal 266-309 [facility] Comment on above: Performed By: #### L XM4847 #### [facility] [address] [place] [address] 59109 Potassium [Moles/Vol] 3.8 mmol/L Normal 3.6-5.0 [facility] Comment on above: Performed By: #### L RZ1392 #### [facility] [address] [place] [address] 51547 Sodium [Moles/Vol] 141 mmol/L Normal 135-145 [facility] Comment on above: Performed By: #### L LZ1925 #### [facility] [address] [place] [address] 96296 Urea nitrogen [Mass/Vol] 13 mg/dL Normal 6-20 [facility] Comment on above: Performed By: #### L WA1562 #### [facility] [address] [place] [address] 86034 Syphilis Ab, Total, Son 03-0 Syphilis Ab, Total, S Non-Reactive Normal Non-Reactive [facility] Comment on above: Performed By: #### L NV0953, DCX7799, GXL7808, ILS8396, UWE6370, UUI7653 #### [facility] [address] [place] [address] 53574 CBCon 05-29-2020 Basophil Abs. 0.1 10*3/uL Normal 0.0-0.1 [facility] Comment on above: Performed By: #### L FD1800, AQF0128, IVK1862, UDD5279, YWK6094, EEH0650 #### [facility] [address] [place] [address] Basophils/100 WBC (Bld) 0.3 % Normal 0.0-1.0 [facility] Comment on above: Performed By: #### L NX0045, EFC8279, ANI5513, SQM4203, FSU6975, YWG2385 #### [place] [address] Differential type Auto Normal [facility] Comment on above: Performed By: #### L CR2880, YVZ7563, PIB2441, IAD8956, QKG2426, CRY0940 #### [place] [address] Eosinophils (Bld) [#/Vol] 0.0 10*3/uL Normal 0.0-0.5 [facility] Comment on above: Performed By: #### L DD0117, XHV0012, JAW2338, WGH0119, YQT5026, HSY1267 #### [place] [address] Eosinophils/100 WBC (Bld) 0.0 % Low 0.3-5.0 [facility] Comment on above: Performed By: #### L TR8649, WNH9310, ORG4065, QHE5711, FUK0283, LIY6528 #### [place] [address] Erythrocyte distribution width (RBC) [Ratio] 16.3 % High 11.5-13.1 [facility] Comment on above: Performed By: #### L QF5568, IEW6374, XMD3953, KNT7967, KFJ6982, QVQ0402 #### [place] [address] Hematocrit (Bld) [Volume fraction] 36.4 % Normal 33.0-51.0 [facility] Comment on above: Performed By: #### L CU9747, XNS1793, BYK1860, JRU9509, DQM3236, XXD3183 #### [place] [address] Hemoglobin (Bld) [Mass/Vol] 11.4 g/dL Low 12.0-16.0 [facility] Comment on above: Performed By: #### L NT2303, IVE2674, HDW6148, RCM6959, ACK7650, CES2340 #### [place] [address] Lymphocytes (Bld) [#/Vol] 3.3 10*3/uL Normal 1.1-5.0 [facility] Comment on above: Performed By: #### L JN1856, EBQ8047, ZOB8956, JDV0602, VRS8821, LZM1646 #### [place] [address] Lymphocytes/100 WBC (Bld) 19.3 % Low 24.0-44.0 [facility] Comment on above: Performed By: #### L MK6088, NQD4486, OZF9636, CLO1460, PJN4292, NKE6225 #### [place] [address] MCH (RBC) [Entitic mass] 27.1 pg Normal 26.0-34.0 [facility] Comment on above: Performed By: #### L QX4075, USG3347, UJR6326, NZV3540, KKB0476, LZO5727 #### [place] [address] MCHC (RBC) [Mass/Vol] 31.5 g/dL Low 32.0-36.0 [facility] Comment on above: Performed By: #### L XB4986, EHN8990, DDI1150, XQK1950, PPM1483, WNJ3276 #### [place] [address] MCV (RBC) [Entitic vol] 86.1 fL Normal 80.0-100.0 [facility] Comment on above: Performed By: #### L IW7537, FZC5263, FEF0854, UDA9068, AGO3177, FNK8790 #### [place] [address] Monocytes (Bld) [#/Vol] 1.0 10*3/uL Normal 0.0-1.4 [facility] Comment on above: Performed By: #### L GB1902, MWZ3934, YZO5541, SPJ3846, GNT0987, UJZ7785 #### [place] [address] Monocytes/100 WBC (Bld) 5.7 % Normal 2.1-13.3 [facility] Comment on above: Performed By: #### L NC3956, KBE6836, XIH9544, SOJ9761, WUG1288, OTZ9364 #### [place] [address] Neutrophils, Abs. 12.8 10*3/uL High 1.5-8.5 [facility] Comment on above: Performed By: #### L XH9433, LVP7777, HKO2224, SCY9913, SHF3741, ONZ9091 #### [place] [address] Neutrophils/100 WBC (Bld) 74.7 % High 35.0-66.0 [facility] Comment on above: Performed By: #### L QX9725, IFB8660, PKQ7602, OTL3891, EKQ6236, KJS3530 #### [place] [address] Platelet Cnt 285 10*3/uL Normal 150-450 [facility] Comment on above: Performed By: #### L IC9983, GAQ8945, FWS1465, KDC1723, BMG5246, PWM7073 #### [address] [address] Platelet mean volume (Bld) [Entitic vol] 10.3 fL High 6.5-10.0 [facility] Comment on above: Performed By: #### L TL7455, IHR5120, DMB5475, YAN5416, ZHK5251, JDP5441 #### [place] [address] RBC (Bld) [#/Vol] 4.23 10*6/uL Normal 4.00-5.20 [facility] Comment on above: Performed By: #### L HP4821, VSZ8084, AAL9190, RSF5636, TBS8088, VGM0038 #### [place] [address] WBC (Bld) [#/Vol] 17.1 10*3/uL High 4.5-11.0 [facility] Comment on above: Performed By: #### L SK5296, UGN7577, TQT1637, DWE5851, CTS6925, VQQ8085 #### [place] [address] COMPREHENSIVE METABOLIC PANE Todd 05-29-2020 Albumin [Mass/Vol] 4.1 g/dL Normal 3.2-5.0 [facility] Comment on above: Performed By: #### L XL8002, ASK3410, KGW8122, UKU1770, THE8606, KKV3757 #### [place] [address] Albumin/Globulin [Mass ratio] 1.3 {ratio} Normal [facility] Comment on above: Performed By: #### L TV7789, NEU0076, KWS0908, OOF0610, FXF8494, KLC2908 #### [place] [address] ALP [Catalytic activity/Vol] 69 U/L Normal 42-121 [facility] Comment on above: Performed By: #### L IQ7453, SFB8378, QXF3725, MUD2702, LEH3038, XZX2595 #### [place] [address] ALT [Catalytic activity/Vol] 26 U/L Normal 10-60 [facility] Comment on above: Performed By: #### L PZ2439, KWC3675, VNR8044, ZYJ3922, AUV3579, OQZ1528 #### [place] [address] Anion gap [Moles/Vol] 10 mmol/L Normal [facility] Comment on above: Performed By: #### L OY8773, KWL1346, PLT1175, DZC6136, RHN8882, JKY0852 #### [place] [address] AST [Catalytic activity/Vol] 23 U/L Normal 10-42 [facility] Comment on above: Performed By: #### L DK2071, SVB0265, IDU2873, YYJ0864, IZY0891, ATW0503 #### [place] [address] B/C 21 High 10-20 [facility] Comment on above: Performed By: #### L WV5815, WBO3661, KAV7763, GIN3668, UBW2056, TOE1904 #### [place] [address] Bilirubin.direct [Mass/Vol] 0.3 mg/dL Normal 0.2-1.0 [facility] Comment on above: Performed By: #### L KR9257, CYF9078, KAF4487, HGZ9329, QTW6867, GHL2879 #### [place] [address] Calcium [Mass/Vol] 8.9 mg/dL Normal 8.5-10.5 [facility] Comment on above: Performed By: #### L LH6428, AKW6600, MTC3634, CGJ1908, MLJ5190, LDV1765 #### [place] [address] Chloride [Moles/Vol] 105 mmol/L Normal 101-111 [facility] Comment on above: Performed By: #### L IX2355, UWU4768, ITQ7951, CIT0279, BGZ1134, ROJ0102 #### [place] [address] CO2 [Moles/Vol] 27 mmol/L Normal 21-31 [facility] Comment on above: Performed By: #### L KX9727, BXL8522, RCF1717, BHZ9154, UVG4387, LPG3043 #### [facility] [address] [place] [address] Creatinine [Mass/Vol] 0.7 mg/dL Normal 0.4-1.0 [facility] Comment on above: Performed By: #### L DE0185, XGX8386, ECB0070, XRB0478, MFM8134, EDZ4770 #### [facility] [address] [place] [address] 79334 GFR/1.73 sq M.predicted MDRD (S/P/Bld) [Vol rate/Area] mL/min/{1.73_m2} Normal [facility] Comment on above: Result Comment: *The estimated Glomerular Filtration Rate(EGFR) may not be accurate for children under the age of 18 yrs. To estimate the GFR for -Americans multiply the result provided by 1.21. Stage 1 90 mL/min or greater Stage 2 60-89 mL/min Stage 3 30-59 mL/min Stage 4 15-29 mL/min Stage 5 14 mL/min or less Performed By: #### L IE9224, SBX8279, SWH0031, CLB7265, RHB8049, ZOI9324 #### [facility] [address] [place] [address]00 Glucose [Mass/Vol] 112 mg/dL High 70-110 [facility] Comment on above: Performed By: #### L JP7707, DCP1766, CUF1921, TGW1440, KQE2697, BPD7915 #### [facility] [address] [place] [address] Osmolality [Osmolality] 285 mosm/kg Normal 266-309 [facility] Comment on above: Performed By: #### L MX9506, WZV1610, ILY2008, KQK7179, YKD0436, PNE3115 #### [facility] [address] [place] [address] Potassium [Moles/Vol] 4.7 mmol/L Normal 3.6-5.0 [facility] Comment on above: Performed By: #### L DB2770, SXI3611, MBB9372, KWL4993, OPD0350, AXX3244 #### [place] [address] Protein [Mass/Vol] 7.2 g/dL Normal 6.7-8.2 [facility] Comment on above: Performed By: #### L JW6644, NWJ9953, JCN6914, DXB8231, WBI2028, UZZ2226 #### [place] [address] Sodium [Moles/Vol] 142 mmol/L Normal 135-145 [facility] Comment on above: Performed By: #### L BL3063, PDE2400, OIQ9738, NKF8138, NZS5333, TSW2329 #### [place] [address] Urea nitrogen [Mass/Vol] 15 mg/dL Normal 6-20 [facility] Comment on above: Performed By: #### L ID8618, HMV3855, AJP2089, ZTR2698, XCO0680, RJK9445 #### [place] [address] HEPATITIS PANEL ACUTEon 02-2 HEPATITIS C AB Negative Normal Negative [facility] Comment on above: Performed By: #### L KL0989, MNS8248, LIL3805, MHS7204, ZWM7308, NRX4744 #### [place] [address] HEP B CORE AB IGM Negative Normal Negative [facility] Comment on above: Performed By: #### L MZ1813, NOR4422, MXJ3053, WQK1025, ZJI8734, SRK8795 #### [place] [address] HEPATITIS A AB IGM Negative Normal Negative [facility] Comment on above: Performed By: #### L KR8511, ILH1633, PGA7867, FGA6293, NEX5962, RCE5430 #### [place] [address] HEP B SURFACE AG Negative Normal Negative [facility] Comment on above: Performed By: #### L BC7953, NGB9408, MUK3569, ENG4304, WCE1107, UQA5966 #### [place] [address] HIV 1, 2 AB SCRNon 1 HIV 1, 2 AB SCRN Negative Normal Negative [facility] Comment on above: Performed By: #### L WD9776, EXY3844, TSR0820, SHZ6010, CBU4457, TVL4095 #### [place] [address] LIPID PANELon 05-29-2020 Cholesterol [Mass/Vol] 221 mg/dL High 10-200 [facility] Comment on above: Performed By: #### L JM4384, CAZ3412, ZVL2706, TIT2208, KTI2871, REZ7669 #### [place] [address] Cholesterol in HDL [Mass/Vol] 60.0 mg/dL Normal 29.0-89.0 [facility] Comment on above: Performed By: #### L BJ7002, PYQ1516, MUG7808, XHR2069, ZMD4182, AGB8290 #### [place] [address] Cholesterol in LDL [Mass/Vol] 141.8 mg/dL [facility] Comment on above: Result Comment: CAP STANDARDIZED LDL-CHOLESTEROL VALUES <130-DESIRABLE 130-159 BORDERLINE/HIGH RISK >160-HIGH RISK Performed By: #### L AA6798, OSD0262, DRI0919, PNI7775, MPW8551, ZBA9784 #### [address] [address] Cholesterol in VLDL [Mass/Vol] 19.2 mg/dL Normal [facility] Comment on above: Performed By: #### L JF3132, AUB2797, SSP1082, GGE1720, SVH3328, TYH2697 #### [address] [place] [address] RISK 1, FEMALE 3.68 Normal [facility] Comment on above: Result Comment: TOTA L CHOL/HDL 1/2 AVERAGE 3.27 AVERAGE 4.44 2 X AVERAGE 7.05 3 X AVERAGE 11.04 Performed By: #### L MK5805, ZSN4422, DCK4521, VIK5189, JBZ9601, UOC5660 #### [facility] [address] [place] [address] RISK 1, MALE 3.68 Normal [facility] Comment on above: Result Comment: TOTA L CHOL/HDL 1/2 AVERAGE 3.43 AVERAGE 4.97 2 X AVERAGE 9.55 3 X AVERAGE 23.39 Performed By: #### L HZ2150, TCW6083, TRS4839, DNW4834, JBY0155, PIY2299 #### [place] [address] RISK 2, FEMALE 2.36 Normal [facility] Comment on above: Result Comment: LDL/ HDL 1/2 AVERAGE 1.47 AVERAGE 3.22 2 X AVERAGE 5.03 3 X AVERAGE 6.14 Performed By: #### L MJ7667, KFP9060, GFT5459, LVT8578, HDT0365, EDS5752 #### [place] [address] RISK 2, MALE 2.36 Normal [facility] Comment on above: Result Comment: LDL/ HDL 1/2 AVERAGE 1.00 AVERAGE 3.55 2 X AVERAGE 6.25 3 X AVERAGE 7.99 Performed By: #### L AY4560, SKA2246, YMD0564, HSO4927, DAC9697, RRS7203 #### [facility] [address] [place] [address] Triglyceride [Mass/Vol] 96 mg/dL Normal 46-236 [facility] Comment on above: Performed By: #### L KP0930, IJH0325, AJD3099, OQK9857, DOF2279, FHT5957 #### [place] [address] TEST, SERUMon 02-2 6-2021 TEST, SERUM Negative Normal NEGATIVE [facility] Comment on above: Performed By: #### L BQ5832 #### [facility] [address] [place] [address] URINALYSISon 05-29-2020 UR BACTERIA None Seen Normal NONE SEEN [facility] Comment on above: Performed By: #### L AB8864 #### [facility] [address] [place] [address] UR BILIRUBIN Negative Normal NEGATIVE [facility] Comment on above: Performed By: #### L YY6418 #### [facility] [address] [place] [address] UR BLOOD Negative Normal NEGATIVE [facility] Comment on above: Performed By: #### L KZ1766 #### [facility] [address] [place] [address] UR CLARITY Clear Normal CLEAR [facility] Comment on above: Performed By: #### L FJ1476 #### [facility] [address] [place] [address] UR COLOR Light-Yellow Normal YELLOW [facility] Comment on above: Performed By: #### L ED5607 #### [facility] [address] [place] [address] UR GLUCOSE Normal Normal NEGATIVE [facility] Comment on above: Performed By: #### L JF0302 #### [facility] [address] [place] [address] UR HYALINE CAST 1 - 3 Normal NONE SEEN [facility] Comment on above: Performed By: #### L MO8264 #### [facility] [address] [place] [address] UR KETONE Negative Normal NEGATIVE [facility] Comment on above: Performed By: #### L SR8950 #### [facility] [address] [place] [address] UR LEUKOCYTE Negative Normal NEGATIVE [facility] Comment on above: Performed By: #### L FQ1040 #### [facility] [address] [place] [address] UR MUCOUS Rare Normal NONE SEEN [facility] Comment on above: Performed By: #### L AS8384 #### [facility] [address] [place] [address] UR NITRITE Negative Normal NEGATIVE [facility] Comment on above: Performed By: #### L PI2620 #### [facility] [address] [place] [address] UR NON-SQUAMOUS EPI < 1 Normal NONE SEEN [facility] Comment on above: Performed By: #### L HT6606 #### [facility] [address] [place] [address] UR PH 6.0 Normal 5.0-9.0 [facility] Comment on above: Performed By: #### L BH8265 #### [facility] [address] [place] [address] UR PROTEIN Negative Normal NEGATIVE [facility] Comment on above: Performed By: #### L BX2085 #### [facility] [address] [place] [address] UR RBC 1 - 3 Normal 1-3 [facility] Comment on above: Performed By: #### L OJ1963 #### [facility] [address] [place] [address] UR SP GRAVITY 1.023 Normal 1.005-1.030 [facility] Comment on above: Performed By: #### L DG4807 #### [facility] [address] [place] [address] UR SQUAMOUS EPI 11 - 20 Abnormal 3-5 [facility] Comment on above: Performed By: #### L TI3267 #### [facility] [address] [place] [address] UR UROBILINOGEN Normal Normal <2.0 [facility] Comment on above: Performed By: #### L UM3748 #### [facility] [address] [place] [address] UR WBC 4 - 5 Normal 1-3 [facility] Comment on above: Performed By: #### L SP9121 #### [facility] [address] [place] [address] FINGER LT MINIMUM 2 VIEWSon 06-24-2019 FINGER [...] should be considered. Report electronically signed by: Ramon Liang MD on Jun 23, 01:23 PM Final Report Normal [facility] Urine Cultureon 09-12-2018 Bacteria identified Cx Nom (U) No growth at 100 CFU/ml or greater Normal [facility] Comment on above: Performed By: #### U RC #### [facility] Laboratory Services Dr. Dimitri [place] MD [address] [place] [address] Basic Metabolic Panelon 09-01 Creatinine [Mass/Vol] 0.888 mg/dL Normal 0.550-1.020 [facility] Comment on above: Performed By: #### B MP #### [facility] Laboratory Services Dr. iDmitri Herron MD [address] [place] [address] GFR/1.73 sq M predicted among non-blacks MDRD (S/P/Bld) [Vol rate/Area] 74 mL/min/{1.73_m2} Normal [facility] Comment on above: Result Comment: K/DO QI [...] function Performed By: #### B MP #### [facility] Laboratory Services Dr. Dimitri Herron MD [address] [place] [address] Calcium [Mass/Vol] 7.9 mg/dL Low 8.5-10.1 [facility] Comment on above: Performed By: #### B MP #### [facility] Laboratory Services Dr. Dimitri Herron MD [address] [place] [address] CO2 [Moles/Vol] 28.0 mmol/L Normal 21.0-32.0 [facility] Comment on above: Performed By: #### B MP #### [facility] Services Dr. Dimitri Herron MD [address] [place] [address] Glucose [Mass/Vol] 132 mg/dL High 74-106 [facility] Comment on above: Performed By: #### B MP #### [facility] Services Dr. Dimitri Herron MD [address] [place] [address] Urea nitrogen [Mass/Vol] 9 mg/dL Normal 7-18 [facility] Comment on above: Performed By: #### B MP #### [facility] Services Dr. Dimitri Herron MD [address] [place] [address] Chloride [Moles/Vol] 105 mmol/L Normal 100-108 [facility] Comment on above: Performed By: #### B MP #### [facility] Services Dr. Dimitri Herron MD [address] [place] [address] [place] [address] Potassium [Moles/Vol] 3.2 mmol/L Low 3.5-5.1 [facility] Comment on above: Performed By: #### B MP #### [facility] Laboratory Services Dr. Dimitri Herron MD [address] [place] [address] Sodium [Moles/Vol] 139 mmol/L Normal 136-145 [facility] Comment on above: Performed By: #### B MP #### [facility] Laboratory Services Dr. Dimitri Herron MD [address] [place] [address] CBC With Platelet and Differ entialon 09-11-2018 Abs. Basophils 0.05 10*3/uL Normal 0.00-0.10 [facility] Comment on above: Performed By: #### C BC #### [facility] Laboratory Services Dr. Dimitri Herron MD [address] [place] [address] Abs. Neutrophils 5.14 10*3/uL Normal 1.70-7.00 [facility] Comment on above: Performed By: #### C BC #### [facility] Laboratory Services Dr. Dimitri Herron MD [address] [place] [address] Basophils/100 WBC (Bld) 0.6 % Normal 0.0-1.3 [facility] Comment on above: Performed By: #### C BC #### [facility] Laboratory Services Dr. Dimitri Herron MD [address] [place] [address] Differential Automated Normal [facility] Comment on above: Performed By: #### C BC #### [facility] Laboratory Services Dr. Dimitri Herron MD [address] [place] [address] Eosinophils (Bld) [#/Vol] 0.15 10*3/uL Normal 0.00-0.50 [facility] Comment on above: Performed By: #### C BC #### [facility] Laboratory Services Dr. Dimitri Herron MD [address] [place] [address] Eosinophils/100 WBC (Bld) 1.8 % Normal 0.0-5.8 [facility] Comment on above: Performed By: #### C BC #### [facility] Laboratory Services Dr. Dimitri Herron MD [address] [place] [address] Erythrocyte distribution width (RBC) [Ratio] 15.3 % High 11.6-14.8 [facility] Comment on above: Performed By: #### C BC #### [facility] Laboratory Services Dr. Dimitri Herron MD [address] [place] [address] Hematocrit (Bld) [Volume fraction] 41.6 % Normal 35.4-47.9 [facility] Comment on above: Performed By: #### C BC #### [facility] Laboratory Services Dr. Dimitri Herron MD [address] [place] [address] Hemoglobin (Bld) [Mass/Vol] 13.3 g/dL Normal 11.9-16.0 [facility] Comment on above: Performed By: #### C BC #### [facility] Laboratory Services Dr. Dimitri Herron MD [address] [place] [address] [id number] Lymphocytes (Bld) [#/Vol] 2.52 10*3/uL Normal 0.80-3.30 [facility] Comment on above: Performed By: #### C BC #### [facility] Dr. Dimitri Herron MD [address] [place] [address] [phone] Lymphocytes/100 WBC (Bld) 29.5 % Normal 13.4-45.1 [facility] Comment on above: Performed By: #### C BC #### [facility] Laboratory Services Dr. Dimitri Herron MD [address] [place] [address] [phone] MCH (RBC) [Entitic mass] 27.5 pg Normal 27.2-33.0 [facility] Comment on above: Performed By: #### C BC #### [facility] Laboratory Services Dr. Dimitri Herron MD [address] [place] [address] [phone] MCHC (RBC) [Mass/Vol] 32.0 g/dL Normal 31.9-35.1 [facility] Comment on above: Performed By: #### C BC #### [facility] Laboratory Services Dr. Dimitri Herron MD [address] [place] [address] [phone] MCV (RBC) [Entitic vol] 86.0 fL Normal 82.1-97.1 [facility] Comment on above: Performed By: #### C BC #### [facility] Laboratory Services Dr. Dimitri Herron MD [address] [place] [address] [phone] Monocytes (Bld) [#/Vol] 0.67 10*3/uL Normal 0.30-0.90 [facility] Comment on above: Performed By: #### C BC #### [facility] Laboratory Services Dr. Dimitri Herron MD [address] [place] [address] [phone] Monocytes/100 WBC (Bld) 7.8 % Normal 4.0-12.7 [facility] Comment on above: Performed By: #### C BC #### [facility] Laboratory Services Dr. Dimitri Herron MD [address] [place] [address] [phone] Neutrophils/100 WBC (Bld) 60.1 % Normal 41.1-75.9 [facility] Comment on above: Performed By: #### C BC #### [facility] Laboratory Services Dr. Dimitri Herron MD [address] [place] [address] [phone] Platelet mean volume (Bld) [Entitic vol] 11.4 fL Normal 8.6-12.2 [facility] Comment on above: Performed By: #### C BC #### [facility] Dr. Dimitri Herron MD [address] [place] [address] [phone] Platelets (Bld) [#/Vol] 282 10*3/uL Normal 133-425 [facility] Comment on above: Performed By: #### C BC #### [facility] Laboratory Services Dr. Dimitri Herron MD [facility] [place] [address] [phone] RBC (Bld) [#/Vol] 4.84 10*6/uL Normal 3.40-5.40 [facility] Comment on above: Performed By: #### C BC #### [facility] Laboratory Services Dr. Dimitri Herron MD [facility] [place] [address] [phone] WBC (Bld) [#/Vol] 8.6 10*3/uL Normal 4.5-11.0 [facility] Comment on above: Performed By: #### C BC #### [facility] Laboratory Services Dr. Dimitri Herron MD [facility] [place] [phone] ABDOMEN AND PELVIS W/O CO NTRASTon [...] Date/time: 09-11-2018, 03:06 AM Final Report Normal [facility] Serum Preg-Qualitativeon Serum Preg-Qualitative Negative Normal Negative So [facility] Comment on above: Performed By: #### B SS #### [facility] Laboratory Services Dr. Dimitri Herron MD [address] [place] [address] [phone] UA Micro Reflex to Cultureon 09-11-2018 Red Blood Cells (Urine) 4 [HPF] Normal 0-5 [facility] Comment on above: Performed By: #### U [place] #### [facility] Laboratory Services Dr. Dimitri Herron MD [address] [place] [address] [phone] Bacteria LM.HPF (Urine sed) [#/Area] Occasional Abnormal None [facility] Comment on above: Performed By: #### U [place] #### [facility] Laboratory Services Dr. Dimitri Herron MD [address] [place] [address] [phone] Epithelial cells.squamous LM.HPF (Urine sed) [#/Area] 9 [HPF] High 0-4 [facility] Comment on above: Performed By: #### U [place] #### [facility] Laboratory Services Dr. Dimitri Herron MD [address] [place] [address] [phone] Hyaline Cast 4 Normal 0-5 [facility] Comment on above: Performed By: #### U [place] #### [facility] Dr. Dimitri Herron MD [address] [place] [address] [phone] White Blood Cells (Urine) 15 [HPF] High 0-4 [facility] Comment on above: Performed By: #### U [place] #### [facility] Dr. Dimitri Herron MD [address] [place] [address] [phone] Appearance (U) Cloudy Abnormal Clear [facility] Comment on above: Performed By: #### U [place] #### [facility] Dr. Dimitri Herron MD [address] [place] [address] [phone] Bilirubin [Mass/Vol] Negative Normal Negative [facility] Comment on above: Performed By: #### U [place] #### [facility] Dr. Dimitri Herron MD [address] [place] [address] [phone] Blood (Urine) Trace Abnormal Negative [facility] Comment on above: Performed By: #### U [place] #### [facility] Dr. Dimitri Herron MD [address] [place] [address] [phone] Color (U) Yellow Normal Yellow [facility] Comment on above: Performed By: #### U [place] #### [facility] Dr. Dimitri Herron MD [address] [place] [address] [phone] Glucose [Mass/Vol] Negative Normal Negative [facility] Comment on above: Performed By: #### U [place] #### [facility] Dr. Dimitri Herron MD [address] [place] [address] [phone] Ketones Ql (U) Negative Normal Negative [facility] Comment on above: Performed By: #### U [place] #### [facility] Dr. Dimitri Herron MD [address] [place] [address] [phone] Leukocyte esterase Test strip Ql (U) Negative Normal Negative [facility] Comment on above: Performed By: #### U [place] #### [facility] Dr. Dimitri Herron MD [address] [place] [address] [phone] Nitrite Ql (U) Negative Normal Negative [facility] Comment on above: Performed By: #### U [place] #### [facility] Dr. Dimitri Herron MD [address] [place] [address] [phone] pH (U) 7.0 [pH] Normal <=7.5 [facility] Comment on above: Performed By: #### U [place] #### [facility] Dr. Dimitri Herron MD [address] [place] [address] [phone] Protein (U) [Mass/Vol] Trace Abnormal Negative So [facility] Comment on above: Performed By: #### U [place] #### [facility] Dr. Dimitri Herron MD [address] [place] [address] [phone] Specific gravity (U) [Rel density] 1.016 Normal 1.005-1.025 [facility] Comment on above: Performed By: #### U [place] #### [facility] Dr. Dimitri Herron MD [address] [place] [address] [phone] Urobilinogen Qn (U) 0.2 Normal 0-2.0 [facility] Comment on above: Performed By: #### U [place] #### [facility] Dr. Dimitri Herron MD [address] [place] [address] [phone] Urine Type Clean catch Normal [facility] Comment on above: Performed By: #### U [place] #### [facility] Dr. Dimitri Herron MD [address] [place] [address] [phone] Urine culture routine Bacteria identified Cx Nom (U) [facility] Work Phone: Vital Signs Date Time Vital Sign Value Performing Clinician Facility 12-13-2024 16:13-0400 Diastolic blood pressure 100 mm[Hg] Carter Thomson MD Work Phone: [facility] [employer] Comment on above: manual 12-13-2024 16:13-0400 Systolic blood pressure 156 mm[Hg] Carter Thomson MD Work Phone: [facility] [employer] Comment on above: manual 12-13-2024 15:33-0400 Body height 165.1 cm Carter Thomson MD Work Phone: [facility] [employer] 12-13-2024 15:33-0400 Body mass index (BMI) [Ratio] 40.52 kg/m2 Carter Thomson MD Work Phone: [facility] [employer] 12-13-2024 15:33-0400 Body temperature 97.7 [degF] Carter Thomson MD Work Phone: [facility] [employer] 12-13-2024 15:33-0400 Body weight 110.45 kg Carter Thomson MD Work Phone: [facility] [employer] 12-13-2024 15:33-0400 Heart rate 78 /min Carter Thomson MD Work Phone: [facility] [employer] 10-11-2024 15:51-0400 Body height 165.1 cm Carter Thomson MD Work Phone: [facility] [employer] 10-11-2024 15:51-0400 Body mass index (BMI) [Ratio] 40.5 kg/m2 Carter Thomson MD Work Phone: [facility] [employer] 10-11-2024 15:51-0400 Body temperature 97.7 [degF] Carter Thomson MD Work Phone: [facility] [employer] 10-11-2024 15:51-0400 Body weight 110.41 kg Carter Thomson MD Work Phone: [facility] [employer] 10-11-2024 15:51-0400 Diastolic blood pressure 69 mm[Hg] Carter Thomson MD Work Phone: [facility] 10-11-2024 15:51-0400 Heart rate 71 /min Carter Thomson MD Work Phone: [facility] 10-11-2024 15:51-0400 Systolic blood pressure 120 mm[Hg] Carter Thomson MD Work Phone: [facility] 09-27-2024 15:05-0400 Body height 165.1 cm Carter Thomson MD Work Phone: [facility] 09-27-2024 15:05-0400 Body mass index (BMI) [Ratio] 40.77 kg/m2 Carter Thomson MD Work Phone: [facility] 09-27-2024 15:05-0400 Body temperature 97.9 [degF] Carter Thomson MD Work Phone: [facility] 09-27-2024 15:05-0400 Body weight 111.13 kg Carter Thomson MD Work Phone: [facility] 09-27-2024 15:05-0400 Diastolic blood pressure 75 mm[Hg] Carter Thomson MD Work Phone: [facility] 09-27-2024 15:05-0400 Heart rate 72 /min Carter Thomson MD Work Phone: [facility] 09-27-2024 15:05-0400 Systolic blood pressure 113 mm[Hg] Carter Thomson MD Work Phone: [facility] 09-20-2024 11:19-0400 Body temperature 97.8 [degF] No Primary Care Physician [facility] 09-20-2024 11:19-0400 Diastolic blood pressure 62 mm[Hg] No Primary Care Physician [facility] 09-20-2024 11:19-0400 Heart rate 78 /min No Primary Care Physician [facility] 09-20-2024 11:19-0400 Respiratory rate 19 /min No Primary Care Physician [facility] 09-20-2024 11:19-0400 SaO2% (BldA) [Mass fraction] 99 % No Primary Care Physician [facility] 09-20-2024 11:19-0400 Systolic blood pressure 124 mm[Hg] No Primary Care Physician [facility] 09-20-2024 08:45-0400 Body height 165.1 cm No Primary Care Physician [facility] 09-20-2024 08:45-0400 Body mass index (BMI) [Ratio] 41 kg/m2 No Primary Care Physician [facility] 09-20-2024 08:45-0400 Body weight 111.81 kg No Primary Care Physician [facility] 07-07-2024 13:58-0400 Body temperature 96.1 [degF] No Primary Care Physician [facility] 07-07-2024 13:58-0400 Diastolic blood pressure 101 mm[Hg] No Primary Care Physician [facility] 07-07-2024 13:58-0400 Heart rate 65 /min No Primary Care Physician [facility] 07-07-2024 13:58-0400 Respiratory rate 17 /min No Primary Care Physician [facility] 07-07-2024 13:58-0400 SaO2% (BldA) [Mass fraction] 96 % No Primary Care Physician [facility] 07-07-2024 13:58-0400 Systolic blood pressure 155 mm[Hg] No Primary Care Physician [facility] 07-07-2024 11:54-0400 Body height 165.1 cm No Primary Care Physician [facility] 07-07-2024 11:54-0400 Body mass index (BMI) [Ratio] 41.5 kg/m2 No Primary Care Physician [facility] 07-07-2024 11:54-0400 Body weight 113.44 kg No Primary Care Physician [facility] 06-06-2023 13:53-0500 Body height 165.1 cm DO [employer] Work Phone: [facility] 06-06-2023 13:53-0500 Body mass index (BMI) [Ratio] 36.2 kg/m2 DO [employer] Work Phone: [facility] 06-06-2023 13:53-0500 Body weight 98.7 kg DO Chago Edwards Work Phone: [facility] 06-06-2023 13:53-0500 Diastolic blood pressure 92 mm[Hg] DO Chago Edwards Work Phone: [facility] 06-06-2023 13:53-0500 Heart rate 90 /min DO Chago Edwards Work Phone: [facility] 06-06-2023 13:53-0500 SaO2% (BldA) [Mass fraction] 92 % DO Chago Edwards Work Phone: [facility] 06-06-2023 13:53-0500 Systolic blood pressure 145 mm[Hg] DO Chago Edwards Work Phone: [facility] 05-15-2023 09:15-0500 Diastolic blood pressure 75 mm[Hg] DO Chago Edwards Work Phone: [facility] 05-15-2023 09:15-0500 Heart rate 75 /min DO Chago Edwards Work Phone: [facility] 05-15-2023 09:15-0500 Respiratory rate 18 /min DO Chago Edwards Work Phone: [facility] 05-15-2023 09:15-0500 SaO2% (BldA) [Mass fraction] 95 % DO Chago Edwards Work Phone: [facility] 05-15-2023 09:15-0500 Systolic blood pressure 128 mm[Hg] DO Chago Edwards Work Phone: [facility] 05-15-2023 07:48-0500 Body height 165.1 cm DO Chago Edwards Work Phone: [facility] 05-15-2023 07:48-0500 Body weight 89.36 kg DO Chago Edwards Work Phone: [facility] 05-15-2023 07:43-0500 Body temperature 97.6 [degF] DO Chago Edwards Work Phone: [facility] 04-17-2023 09:45-0500 Diastolic blood pressure 69 mm[Hg] DO Chago Edwards Work Phone: [facility] 04-17-2023 09:45-0500 Heart rate 71 /min DO Chago Edwards Work Phone: [facility] 04-17-2023 09:45-0500 Respiratory rate 20 /min DO Chago Edwards Work Phone: [facility] 04-17-2023 09:45-0500 SaO2% (BldA) [Mass fraction] 95 % DO Chago Edwards Work Phone: [facility] 04-17-2023 09:45-0500 Systolic blood pressure 115 mm[Hg] DO Chago Edwards Work Phone: [facility] 04-17-2023 08:39-0500 Body height 165.1 cm DO Chago Edwards Work Phone: [facility] 04-17-2023 08:39-0500 Body weight 105 kg DO Chago Edwards Work Phone: [facility] 04-17-2023 08:36-0500 Body temperature 97.4 [degF] DO Chago Edwards Work Phone: [facility] 03-26-2023 13:15-0500 Body height 165 cm DO Chago Edwards Work Phone: [facility] 03-26-2023 13:15-0500 Body mass index (BMI) [Ratio] 35.4 kg/m2 DO Chago Edwards Work Phone: [facility] 03-26-2023 13:15-0500 Body temperature 98.3 [degF] DO Chago Edwrads Work Phone: [facility] 03-26-2023 13:15-0500 Body weight 96.3 kg DO Chago Edwards Work Phone: [facility] 03-26-2023 13:15-0500 Diastolic blood pressure 83 mm[Hg] DO Chago Edwards Work Phone: [facility] 03-26-2023 13:15-0500 Heart rate 75 /min DO Chago Edwards Work Phone: [facility] 03-26-2023 13:15-0500 Respiratory rate 18 /min DO Chago Edwards Work Phone: [facility] 03-26-2023 13:15-0500 SaO2% (BldA) [Mass fraction] 96 % DO Chago Edwards Work Phone: [facility] 03-26-2023 13:15-0500 Systolic blood pressure 127 mm[Hg] DO Chago Edwards Work Phone: [facility] 03-14-2023 14:13-0500 Body height 165.1 cm DO Chago Edwards Work Phone: [facility] 03-14-2023 14:13-0500 Body mass index (BMI) [Ratio] 36.2 kg/m2 DO Chago Edwards Work Phone: [facility] 03-14-2023 14:13-0500 Body weight 98.8 kg DO Chago Edwards Work Phone: [facility] 03-14-2023 14:13-0500 Diastolic blood pressure 95 mm[Hg] DO Chago Edwards Work Phone: [facility] 03-14-2023 14:13-0500 Heart rate 78 /min DO Chago Edwards Work Phone: [facility] 03-14-2023 14:13-0500 Systolic blood pressure 151 mm[Hg] DO Chago Edwards Work Phone: [facility] 01-06-2023 00:31-0400 Diastolic blood pressure 92 mm[Hg] DO Chago Edwards Work Phone: [facility] 01-06-2023 00:31-0400 Heart rate 81 /min DO Chago Edwards Work Phone: [facility] 01-06-2023 00:31-0400 Respiratory rate 17 /min DO Chago Edwards Work Phone: [facility] 01-06-2023 00:31-0400 SaO2% (BldA) [Mass fraction] 98 % DO Chago Edwards Work Phone: [facility] 01-06-2023 00:31-0400 Systolic blood pressure 135 mm[Hg] DO Chago Edwards Work Phone: [facility] 01-05-2023 20:20-0400 Body height 165.1 cm DO Chago Edwards Work Phone: [facility] 01-05-2023 20:20-0400 Body mass index (BMI) [Ratio] 36.6 kg/m2 DO Chago Edwards Work Phone: [facility] 01-05-2023 20:20-0400 Body temperature 98.3 [degF] DO Chago Edwards Work Phone: [facility] 01-05-2023 20:20-0400 Body weight 100 kg DO Chago Edwards Work Phone: [facility] 01-03-2023 19:43-0400 Body height 165.1 cm DO Chago Edwards Work Phone: [facility] 01-03-2023 19:43-0400 Body mass index (BMI) [Ratio] 36.8 kg/m2 DO Chago Edwards Work Phone: [facility] 01-03-2023 19:43-0400 Body temperature 97.8 [degF] DO Chago Edwards Work Phone: [facility] 01-03-2023 19:43-0400 Body weight 100.4 kg DO Chago Edwards Work Phone: [facility] 01-03-2023 19:43-0400 Diastolic blood pressure 83 mm[Hg] DO Chago Edwards Work Phone: [facility] 01-03-2023 19:43-0400 Heart rate 97 /min DO Chago Edwards Work Phone: [facility] 01-03-2023 19:43-0400 Respiratory rate 18 /min DO Chago Edwards Work Phone: [facility] 01-03-2023 19:43-0400 SaO2% (BldA) [Mass fraction] 97 % DO Chago Edwards Work Phone: [facility] 01-03-2023 19:43-0400 Systolic blood pressure 132 mm[Hg] DO Chago Edwards Work Phone: [facility] 06-03-2022 00:55-0500 Diastolic blood pressure 76 mm[Hg] DO Chago Edwards Work Phone: [facility] 06-03-2022 00:55-0500 Heart rate 69 /min DO Chago Edwards Work Phone: [facility] 06-03-2022 00:55-0500 Respiratory rate 20 /min DO Chago Edwards Work Phone: [facility] 06-03-2022 00:55-0500 SaO2% (BldA) [Mass fraction] 98 % DO Chago Edwards Work Phone: [facility] 06-03-2022 00:55-0500 Systolic blood pressure 138 mm[Hg] DO Chago Edwards Work Phone: [facility] 06-02-2022 18:18-0500 Body height 165.1 cm DO Chago Edwards Work Phone: [facility] 06-02-2022 18:18-0500 Body mass index (BMI) [Ratio] 35.8 kg/m2 DO Chago Edwards Work Phone: [facility] 06-02-2022 18:18-0500 Body temperature 98 [degF] DO Chago Edwards Work Phone: [facility] 06-02-2022 18:18-0500 Body weight 97.72 kg DO Chago Edwards Work Phone: [facility] 12-18-2021 00:35-0400 Diastolic blood pressure 86 mm[Hg] DO Chago Edwards Work Phone: [facility] Work Phone: 12-18-2021 00:35-0400 Heart rate 66 /min DO Chago Edwards Work Phone: [facility] Work Phone: 12-18-2021 00:35-0400 Respiratory rate 16 /min DO Chago Edwards Work Phone: [facility] Work Phone: 12-18-2021 00:35-0400 SaO2% (BldA) [Mass fraction] 96 % DO Chago Edwards Work Phone: [facility] Work Phone: 12-18-2021 00:35-0400 Systolic blood pressure 162 mm[Hg] DO Chago Edwards Work Phone: [facility] Work Phone: 12-17-2021 21:11-0400 Body height 165.1 cm DO Chago Edwards Work Phone: [facility] Work Phone: 12-17-2021 21:11-0400 Body mass index (BMI) [Ratio] 37.4 kg/m2 DO Chago Edwards Work Phone: [facility] Work Phone: 12-17-2021 21:11-0400 Body temperature 97.9 [degF] DO Chago Edwards Work Phone: [facility] Work Phone: 12-17-2021 21:11-0400 Body weight 102 kg DO Chago Edwards Work Phone: [facility] Work Phone: 04-14-2021 09:54-0500 Body height 165.1 cm DO Chago Edwards Work Phone: [facility] Work Phone: 04-14-2021 09:54-0500 Body mass index (BMI) [Ratio] 38.6 kg/m2 DO Chago Edwards Work Phone: [facility] Work Phone: 04-14-2021 09:54-0500 Body weight 105.23 kg DO Chago Edwards Work Phone: [facility] Work Phone: 04-14-2021 09:54-0500 Diastolic blood pressure 84 mm[Hg] DO Chago Edwards Work Phone: [facility] Work Phone: 04-14-2021 09:54-0500 Heart rate 76 /min DO Chago Edwards Work Phone: [facility] Work Phone: 04-14-2021 09:54-0500 Respiratory rate 14 /min DO Chago Edwards Work Phone: [facility] Work Phone: 04-14-2021 09:54-0500 SaO2% (BldA) [Mass fraction] 96 % DO Chago Edwards Work Phone: [facility] Work Phone: 01-12-2022 09:54-0500 Systolic blood pressure 145 mm[Hg] DO Chago Edwards Work Phone: [facility] Work Phone: Encounters Encounter Date Encounter Type Care Provider Facility Start: 12-27-2024 End: 12-27-2024 Refill Carter Thomson MD Work Phone: [facility] Start: 12-20-2024 End: 12-24-2024 Refill Carter Thomson MD Work Phone: [facility] Start: 12-13-2024 End: 12-13-2024 Office outpatient visit 15 minutes Maki Vela MD Work Phone: [facility] Comment on above: Type 2 diabetes erica itus with hyperglycemia, without long-term current use of insulin (HCC) (Primary Dx); Steatosis of liver; Smoking history; Encounter for screening mammogram for malignant neoplasm of breast; Lichen planus; Smoker; Essential hypertension Start: 12-13-2024 End: 12-13-2024 ambulatory MAKI VELA [facility] Start: 12-07-2024 End: 12-10-2024 Refill Carter Thomson MD Work Phone: [facility] Start: 12-06-2024 End: 12-06-2024 ambulatory No Primary Care Physician [facility] Start: 12-06-2024 End: 12-06-2024 Patient encounter procedure Ethan MCGUIRE -[facility] Work Phone: Start: 12-06-2024 End: 12-06-2024 ambulatory [facility] Facility:[facility] Start: 11-16-2024 End: 11-18-2024 Refill Paul Miranda MD Work Phone: [facility] Comment on above: Type 2 diabetes erica itus with hyperglycemia, without long-term current use of insulin (HCC); Steatosis of liver Start: 10-25-2024 End: 10-25-2024 Krzysztof Thomson MD Work Phone: [facility] Start: 10-11-2024 End: 10-11-2024 Office outpatient visit 25 minutes Farheen Edwards DO Work Phone: [facility] Comment on above: Type 2 diabetes erica itus with hyperglycemia, without long-term current use of insulin (HCC) (Primary Dx); Class 3 severe obesity due to excess calories with body mass index (BMI) of 40.0 to 44.9 in adult, unspecified whether serious comorbidity present; Palmoplantar pustulosis; Lichen planus Start: 10-11-2024 End: 10-11-2024 ambulatory [facility] Start: 09-27-2024 End: 09-27-2024 Office outpatient new 30 minutes Farheen Edwards DO Work Phone: [facility] Comment on above: Encounter to [facility] with new doctor (Primary Dx); Type 2 diabetes mellitus with hyperglycemia, without long-term current use of insulin (HCC); Skin rash; Essential hypertension; Smoker; Other fatigue Start: 09-27-2024 End: 09-27-2024 ambulatory [facility] Start: 09-20-2024 End: 09-20-2024 Emergency department patient visit No Primary Care Physician -Emergency Department Work Phone: Start: 07-07-2024 End: 07-07-2024 Emergency department patient visit No Primary Care Physician -Emergency Department Work Phone: Start: 06-06-2023 End: 06-06-2023 ambulatory Roman Breaux Facility:[facility] Start: 06-06-2023 Non-patient / Non-visit DO Smooth Edwards Work Phone: [facility] (Acute) Work Phone: Start: 05-15-2023 [facility] Start: 05-15-2023 Non-patient / Non-visit DO Smooth holas Edwards Work Phone: [facility] Start: 05-15-2023 ambulatory Roman Jacksoncherelledilia Teai lity:[facility] Start: 05-15-2023 End: 05-15-2023 ambulatory Roman Breaux Facility:[facility] Start: 05-15-2023 Non-patient / Non-visit DO Smooth holas Edwards Work Phone: [facility] Work Phone: Start: 05-15-2023 End: 05-15-2023 Admission to same day surgery center DO Chago Edwards Work Phone: [facility] END[facility] Work Phone: Start: 05-15-2023 End: 05-15-2023 ambulatory DO Chago Palak Edwards Work Phone: [facility] Work Phone: Start: 04-17-2023 ambulatory Roman Jacksoncherelledilia Teai lity:[facility] Start: 04-17-2023 End: 04-17-2023 ambulatory Roman Breaux Facility:[facility] Start: 04-17-2023 Non-patient / Non-visit DO Smooth holas Edwards Work Phone: [facility] Work Phone: Start: 04-17-2023 End: 04-17-2023 Admission to same day surgery center DO Chago Edwards Work Phone: [facility] END[facility] Work Phone: Start: 04-17-2023 End: 04-17-2023 ambulatory DO Chago Palak Edwards Work Phone: [facility] Work Phone: Start: 03-26-2023 End: 03-26-2023 ambulatory Sagar Lema Facility:[facility] Start: 03-26-2023 End: 03-26-2023 Patient encounter procedure DO Chago Edwards Work Phone: [facility] (ACUTE) Work Phone: Start: 03-14-2023 End: 03-14-2023 ambulatory Roman Janetapollocherelledilia Facility:[facility] Start: 03-14-2023 End: 03-14-2023 Non-patient / Non-visit DO Chago Edwards Work Phone: [facility] (Acute) Work Phone: Start: 01-30-2023 End: 01-31-2023 ambulatory Shaunna Estevez Facility:[facility] Start: 01-30-2023 Non-patient / Non-visit DO Smooth holas Edwards Work Phone: [facility] Start: 01-30-2023 End: 01-30-2023 ambulatory DO Chago Palak Edwards Work Phone: [facility] Work Phone: Start: 01-30-2023 End: 01-30-2023 Patient encounter procedure DO Chago Edwards Work Phone: [facility] (ACUTE) Work Phone: Start: 01-06-2023 ambulatory Álvaro Valentine ity:[facility] Start: 01-05-2023 ambulatory Burt Blunt Facility :[facility] Start: 01-05-2023 Non-patient / Non-visit DO Smooth holas Edwards Work Phone: [facility] Start: 01-05-2023 Non-patient / Non-visit DO Smooth holas Edwards Work Phone: [facility] Work Phone: Start: 01-05-2023 End: 01-06-2023 Emergency department patient visit DO Chago Edwards Work Phone: [facility] Work Phone: Start: 01-03-2023 End: 01-04-2023 ambulatory Tamara Espinosa Facility:[facility] Start: 01-03-2023 End: 01-03-2023 Patient encounter procedure DO Chago Edwards Work Phone: [facility] (ACUTE) Work Phone: Start: 06-02-2022 Non-patient / Non-visit DO Smooth victoriaas Edwards Work Phone: [facility] Start: 06-02-2022 End: 06-03-2022 Emergency department patient visit DO Chago Edwards Work Phone: [facility] Start: 12-18-2021 Non-patient / Non-visit DO Smooth kessleras Edwards Work Phone: [facility] Start: 12-17-2021 End: 12-18-2021 Emergency department patient visit DO Chago Edwards Work Phone: [facility] Start: 04-14-2021 End: 04-14-2021 Patient encounter procedure DO Chago Edwards Work Phone: [facility] Start: 11-10-2020 End: 11-10-2020 Emergency department patient visit CHAGO CID~[id number] [facility] Start: 06-30-2020 End: 06-30-2020 Patient encounter procedure [facility] Start: 06-29-2020 Manual pelvic examination DO Chagoshamar Edwards Work Phone: [facility] Start: 05-29-2020 ambulatory [facility] Start: 05-29-2020 Encounter for genera l adult medical examination without abnormal findings [facility][id number] [facility] Start: 05-29-2020 End: 05-30-2020 ambulatory [facility]~[id number] [facility] Start: 05-29-2020 End: 05-29-2020 ambulatory [facility] CID~[id number] [facility] Start: 05-29-2020 ambulatory CHAGO CID~[id number] [facility] Procedures Date Procedure Procedure Detail Performing Clinician Start: 12-06-2024 Hepatitis C antibody measurement No Primary Care Physician Comment on above: Reactive: Presumptiv e evidence of antibodies to HCV. Follow CDC recommendations for supplemental testing.Non-Reactive: Antibodies to HCV were not detected; does not exclude the possibility of exposure to HCVReactive Results are presumptive evidence of antibodies to HCV. Follow CDC recommendations for supplemental testing.Order confirmation testing: HCV Quant by PCR testing - HCVPCR #[id number] Non Reactive: < 0.8 Equivocal: >/= 0.8 to < 1.0 Reactive: >/= 1.0The CDC requires that a reactive/equivocal HCV antibody result be sent out for confirmation. HCV Quant by PCR testing. Start: 09-27-2024 Hemoglobin glycosylated a1c Carter Thomson MD Work Phone: Start: 09-27-2024 Adult depression scr eening assessment Carter Thomson MD Work Phone: Start: 09-20-2024 Estimated creatinine clearance No Primary Care Physician Start: 09-20-2024 Serologic test for syphilis No Primary Care Physician Start: 07-07-2024 Estimated creatinine clearance No Primary Care Physician Start: 07-07-2024 CT of soft tissues o [...] Work Phone: Start: 06-02-2022 Microbial culture DO Pratima Edwards Work Phone: Urine culture DO Chago Greene Work Phone: Plan of Treatment Date Care Activity Detail Author Start: 2052 RSV Immunization for Adults (1 - 1-dose 75+ series) RSV Immunization for Adults (1 - 1-dose 75+ series) [facility] Start: 2027 Zoster Vaccines (1 o f 2) Zoster Vaccines (1 of 2) [facility] Start: 01-01-2027 Screening for malign ant neoplasm of cervix [facility] Start: 11-01-2025 Glaucoma screening Diabetes: R etinopathy Screening [facility] Start: 09-27-2025 Depression Screening Depression Scre ening [facility] Start: 09-27-2025 Hemoglobin A1c measurement Diabetes: Hemoglobin A1C [facility] Start: 02-07-2025 End: 02-07-2025 Patient encounter procedure 02/07/2025 3:45 PM EST Office Visit [facility] [address] [place] [id number] Carter Thomson MD [address] [place], [place] [id number] [facility] Start: 01-17-2025 End: 01-17-2025 Patient encounter procedure 01/17/2025 3:20 PM EDT Office Visit [facility] [place] [address] [place] [id number] Michelle Boyd PA-C [address] [place] [address] [facility] [place] Start: 12-13-2024 End: 12-13-2024 Patient encounter procedure [facility] Start: 12-13-2024 End: 02-12-2026 DBT Breast - bilateral screening Bilateral screening mammogram with tomosynthesis Imaging Routine Encounter for screening mammogram for malignant neoplasm of breast Expected: 12/13/2024, Expires: 02/12/2026 [facility] Work Phone: Comment on above: Expected: 12/13/2024 , Expires: 02/12/2026 Start: 12-02-2024 Influenza vaccination [facility] Start: 10-11-2024 End: 10-11-2024 Patient encounter procedure 10/11/2024 3:45 PM EDT Office Visit [facility] [address] [place] [phone] Carter Thomson MD [address] [place] [address] [facility] Start: 09-20-2024 [facility] Start: 07-07-2024 [facility] Start: 05-15-2023 Advance diet as tolerated [facility] Start: 05-15-2023 Patient discharge [facility] Start: 05-15-2023 [facility] Start: 04-17-2023 Advance diet as tolerated [facility] Start: 04-17-2023 Patient discharge [facility] Start: 01-05-2023 Bacteria identified in Urine by Culture [facility] Start: 06-03-2022 [facility] Work Phone: Start: 2017 Screening for malign ant neoplasm of breast Mammogram [facility] Start: 2007 Screening for malign ant neoplasm of cervix [facility] Start: 1998 Screening for malign ant neoplasm of cervix Pap Smear [facility] Start: 1996 DTaP/Tdap/Td Vaccine s (1 - Tdap) DTaP/Tdap/Td Vaccines (1 - Tdap) [facility] Start: 1996 Hepatitis B Vaccines (1 of 3 - 19+ 3-dose series) Hepatitis B Vaccines (1 of 3 - 19+ 3-dose series) [facility] Start: 1996 Pneumococcal Vaccine : Pediatrics (0 to 5 Years) and At-Risk Patients (6 to 49 Years) (1 of 2 - PCV) Pneumococcal Vaccine: Pediatrics (0 to 5 Years) and At-Risk Patients (6 to 49 Years) (1 of 2 - PCV) [facility] Start: 1995 Diabetes: Estimated Glomerular Filtration Rate for Kidney Health Diabetes: Estimated Glomerular Filtration Rate for Kidney Health [facility] Start: 1995 Diabetes: Urine Albumin-Creatinine Ratio for Kidney Health Diabetes: Urine Albumin-Creatinine Ratio for Kidney Health [facility] Start: 1995 Hepatitis C screening Hepatitis C Sc reening [facility] Start: 1987 Diabetic foot examination Diabetes: Foot Exam [facility] Start: 1987 Glaucoma screening Diabetes: R etinopathy Screening [facility] Start: 1987 Preventive dental service Diabetes: Dental Exam [facility] Start: 1978 MMR Vaccines (1 of 1 - Standard series) MMR Vaccines (1 of 1 - Standard series) [facility] Start: 1977 HIV screening HIV Screening [facility] Start: 1977 Lipid panel Lipid Panel [facility] Start: 1977 Screening for malign ant neoplasm of colon [facility] Bacteria identified in Blood by Culture Blood Culture [facility] Work Phone: Patient Education [facility] Work Phone: Patient referral [facility] Work Phone: Immunizations Immunization Date Immunization Notes Care Provider Fa [facility] 01-11-2023 influenza virus vacc ine, unspecified formulation Carter Thomson MD Work Phone: [facility] Payers Date Payer Category Payer Medicaid O [employer] ODM [id number] 2023 Medicaid [id number] 2023 Self-pay [id number] 2012 Medicaid [id number] Unknown [id number] Unknown [id number] [id number]49 Unknown [id number] 2.16.840.1.978604.3.579.2.1149 Unknown [id number] 2.16.840.1.338810.3.579.2.1149 Unknown [id number] 2.16.840.1.988087.3.579.2.1149 Unknown [id number] 2.16.840.1.814995.3.579.2.1149 Unknown [id number] 2.16.840.1.531128.3.579.2.1149 Unknown [id number] 2.16.840.1.762750.3.579.2.1149 Unknown [id number] 2.16.840.1.795886.3.579.2.1149 Unknown [id number] 2.16.840.1.019782.3.579.2.1149 Unknown [id number] 2.16.840.1.007291.3.579.2.1149 Unknown [id number] 2.16.840.1.889154.3.579.2.1149 Unknown [id number] 2.16.840.1.446557.3.579.2.1149 Unknown [id number] 2.16.840.1.401289.3.579.2.1149 Unknown [id number] 2.16.840.1.946196.3.579.2.1149 Unknown [id number] 2.16.840.1.715748.3.579.2.1149 Unknown [id number] 2.16.840.1.979043.3.579.2.1149 Unknown [id number] 2.16.840.1.607533.3.579.2.1149 Unknown [id number] 2.16.840.1.275539.3.579.2.1149 Unknown [id number] 2.16.840.1.322237.3.579.2.1149 Unknown [id number] 2.16.840.1.142505.3.579.2.462 Unknown [id number] 2.16.840.1.824471.3.579.2.462 Unknown [id number] 2.16.840.1.940347.3.579.2.462 Social History Date Type Detail Facility Start: 06-06-2021 End: 06-06-2023 Tobacco smoking status [facility] Current every day smoker [facility] Start: 1975 Sex Assigned At Female [facility] Start: 01-06-2023 Tobacco smoking stat [facility] Former smoker [facility] Start: 07-07-2024 End: 09-20-2024 Tobacco smoking status [facility] Current some day smoker [facility] Start: 06-27-2024 End: 07-07-2024 Sex Female (finding) [facility] Start: 09-27-2024 End: 12-13-2024 Tobacco smoking status [facility] Smokes tobacco daily [facility] History of tobacco use Cigarette Smoker [facility] Start: 09-27-2024 End: 12-13-2024 Tobacco use and exposure Smokeless tobacco non-user [facility] Start: 09-27-2024 End: 12-13-2024 History of Social function [facility] Start: 09-27-2024 End: 12-13-2024 B1300 Health Literacy [facility] How often do you nee d to have someone help you when you read instructions, pamphlets, or other written material from your doctor or pharmacy [SILS] Never [facility] Has the [employer], or [employer] threatened to shut off services in your home in past 12Mo No [facility] [employer] How many standard drinks containing alcohol do you have on a typical day? Patient does not drink [facility] Do you feel stress - tense, restless, nervous, or anxious, or unable to sleep at night because your mind is troubled all the time - these days [OSQ] Not at all [facility] [employer] (I/We) worried wheth er (my/our) food would run out before (I/we) got money to buy more. Never true [facility] Start: 1975 Sex assigned at Not on file [facility] Start: 10-11-2024 End: 12-15-2024 Alcoholic beverage intake Lifetime non-drinker (finding) [facility] History of tobacco use Passive smoker [facility] Medical Equipment Procedure Code Equipment Code Equipment Origin al Text Equipment Identifier Dates [id number], [id number], [id number] Start: 12-13-2024 Functional Status Date Assessment Result Facility 09-27-2024 Total score [AUDIT-C] 0 09/28/19 3:06 PM EDT Reina Gomez RN [facility] 09-27-2024 Patient Health Quest ionnaire 2 item (PHQ-2) [Reported] [facility] Clinical Notes 05-15-2023 to 12-27-2024 Telephone Encounter - Kristie Pack MA - 12/27/2024 8:39 AM EDTTelephone Encounter - Kristie Pack MA - 12/27/2024 8:39 AM Ofe Thomson MD - 12/13/2024 3:45 PM EDTPatient Instructions Note Date & Type Note Facility 12-27-2024 Telephone encounter Note Form atting of this note might be different from the original. Last office visit: 12/13/2024 Next office visit: 02/07/2025 [facility] 12-27-2024 Miscellaneous Notes Formattin g of this note might be different from the original. Last office visit: 12/13/2024 Next office visit: 02/07/2025 documented in this encounter [facility] 12-23-2024 Telephone encounter Note Form atting of this note might be different from the original. Last office visit: 12/13/24 Next office visit: 02/07/25 [facility] 12-23-2024 Miscellaneous Notes Formattin g of this note might be different from the original. Last office visit: 12/13/24 Next office visit: 02/07/25 documented in this encounter [facility] 12-15-2024 Evaluation + Plan note Associ ated Problem(s): Essential hypertension -BP elevated today. Patient has been taking metoprolol tartrate once daily. Will have her take this twice daily and plan to recheck BP at next visit. [facility] 12-15-2024 Miscellaneous Notes Associate d Problem(s): Essential hypertension -BP elevated today. Patient has been taking metoprolol tartrate once daily. Will have her take this twice daily and plan to recheck BP at next visit. Associated Problem(s): Steatosis of liver -lovastatin not covered by insurance. Will switch to atorvastatin Associated Problem(s): Smoker -discussed smoking cessation. Agreeable to trying nicotine replacement products. Defers Chantix at this time Associated Problem(s): Type 2 diabetes mellitus with hyperglycemia (HCC) -ozempic was not covered. Increase Trulicity to 3 mg weekly. Recheck A1c at next visit. Associated Problem(s): Lichen planus -seen by dermatology. Has upcoming appointment. documented in this encounter [facility] 12-15-2024 Miscellaneous Notes Associate d Problem(s): Essential hypertension -BP elevated today. Patient has been taking metoprolol tartrate once daily. Will have her take this twice daily and plan to recheck BP at next visit. Associated Problem(s): Steatosis of liver -lovastatin not covered by insurance. Will switch to atorvastatin Associated Problem(s): Smoker -discussed smoking cessation. Agreeable to trying nicotine replacement products. Defers Chantix at this time Associated Problem(s): Type 2 diabetes mellitus with hyperglycemia (HCC) -ozempic was not covered. Increase Trulicity to 3 mg weekly. Recheck A1c at next visit. Associated Problem(s): Lichen planus -seen by dermatology. Has upcoming appointment. documented in this encounter [facility] 12-15-2024 Evaluation + Plan note Associ ated Problem(s): Steatosis of liver -lovastatin not covered by insurance. Will switch to atorvastatin [facility] 12-15-2024 Evaluation + Plan note Associ ated Problem(s): Smoker -discussed smoking cessation. Agreeable to trying nicotine replacement products. Defers Chantix at this time [facility] 12-15-2024 Evaluation + Plan note Associ ated Problem(s): Type 2 diabetes mellitus with hyperglycemia (HCC) -ozempic was not covered. Increase Trulicity to 3 mg weekly. Recheck A1c at next visit. [facility] 12-15-2024 Evaluation + Plan note Associ ated Problem(s): Lichen planus -seen by dermatology. Has upcoming appointment. [facility] 12-13-2024 History of Presen t illness Narrative Images from the original note were not included. [address] [facility] [address] Dept: [phone] Dept Loc: [phone] Visit type: Established patient Reason for Visit: Follow-up (Dm, rash check up/dermatology, medications issues) Assessment and Plan 1. Type 2 diabetes mellitus with hyperglycemia, without long-term current use of insulin (HCC) Assessment & Plan: -ozempic was not covered. Increase Trulicity to 3 mg weekly. Recheck A1c at next visit. Orders: - dulaglutide (Trulicity) 3 MG/0.5ML; Inject 3 mg under the skin 1 (one) time per week., Starting Mon12/13/2024, Normal - alcohol prep pads; Use daily to clean area before checking blood sugars, Normal - Lancets Thin misc; Testing once a day, Normal - glucose blood test strip; Test once a day, Normal - pen needle 31G X 8 MM misc; Use as instructed, Normal - atorvastatin (Lipitor) 40 MG tablet; Take 1 tablet (40 mg) by mouth daily., Starting Mon12/13/2024, Until Mon02/11/2025, Normal 2. Steatosis of liver Assessment & Plan: -lovastatin not covered by insurance. Will switch to atorvastatin Orders: - atorvastatin (Lipitor) 40 MG tablet; Take 1 tablet (40 mg) by mouth daily., Starting Mon12/13/2024, Until Mon02/11/2025, Normal 3. Smoking history - nicotine polacrilex (Nicorette) 2 MG gum; Chew 1 each (2 mg) every 3 hours as needed for smoking cessation., Starting Mon12/13/2024, Until 01/12/2025 at 2359, Normal - nicotine (Nicoderm, Step 1) 21 MG/24HR patch; Place 1 patch on the skin Every 24 hours., Starting Mon12/13/2024, Until 04/12/2025, Normal 4. Encounter for screening mammogram for malignant neoplasm of breast - Bilateral screening mammogram with tomosynthesis 5. Lichen planus Assessment & Plan: -seen by dermatology. Has upcoming appointment. 6. Smoker Assessment & Plan: -discussed smoking cessation. Agreeable to trying nicotine replacement products. Defers Chantix at this time 7. Essential hypertension Assessment & Plan: -BP elevated today. Patient has been taking metoprolol tartrate once daily. Will have her take this twice daily and plan to recheck BP at next visit. Patient was involved and agreeable in shared decision making. Follow up in about 6 weeks (around 01/24/2025) for DM/A1c. Martha HPI Amy Naidu is a 49 y.o. female patient that presents today for follow up. T2DM Weight Ozempic was ordered at last visit, but this was not covered by insurance. She is currently on Trulicity 1.5 mg weekly and metformin 500 mg BID. She has been on steroids for her lichen planus. She is planning on following up with her coding manager for different medication. She had an eye exam at [facility] recently. Hypertension She reports improvement in the clonidine. However, she has only been taking metoprolol once a day. Smoking Continues to smoke 0.5-1 pack daily. She has tried nicotine patches in the past but these were not sticky enough. Lichen planus rash is healing well after starting steroids. Review of Systems Respiratory: Negative for shortness of breath. Cardiovascular: Negative for chest pain. Gastrointestinal: Negative for constipation and diarrhea. Medications reviewed Medical history reviewed Allergies reviewed Objective BP (!) 156/100 Comment: manual Pulse 78 Temp 36.5 C (97.7 F) (Temporal) Ht 5' 5 (1.651 m) Wt 243 lb 8 oz (110 kg) LMP 06/02/2023 (Approximate) BMI 40.52 kg/m Last 3 weights: Wt Readings from Last 3 Encounters: 12/13/24 243 lb 8 oz (110 kg) 10/11/24 243 lb 6.4 oz (110 kg) 09/27/24 245 lb (111 kg) Physical Exam Constitutional: General: She is not in acute distress. Appearance: She is not ill-appearing. Cardiovascular: Rate and Rhythm: Normal rate and regular rhythm. Pulses: Normal pulses. Heart sounds: Normal heart sounds. No murmur heard. Pulmonary: Effort: Pulmonary effort is normal. No respiratory distress. Breath sounds: Normal breath sounds. No wheezing. Abdominal: General: Bowel sounds are normal. There is no distension. Palpations: Abdomen is soft. Tenderness: There is no abdominal tenderness. Musculoskeletal: Right lower leg: No edema. Left lower leg: No edema. Skin: Findings: Lesion (healing rash on feet and hands) present. Data Reviewed and Summarized Carter Thomson MD [facility] Medicine 12/15/24 4:48 PM Pt asked if they have been to specialist,been in ER /hospitalized or had testing since last visit. Yes, [facility] and labs Patient was able to ambulate safely to the examination room. Provider was not notified of possible fall risk documented in this encounter [facility] 12-13-2024 History of Presen t illness Narrative Images from the original note were not included. [place] [address] [facility] [address] [facility] [address] Dept: [phone] Dept Loc: [phone] Visit type: Established patient Reason for Visit: Follow-up (Dm, rash check up/dermatology, medications issues) Assessment and Plan 1. Type 2 diabetes mellitus with hyperglycemia, without long-term current use of insulin (HCC) Assessment & Plan: -ozempic was not covered. Increase Trulicity to 3 mg weekly. Recheck A1c at next visit. Orders: - dulaglutide (Trulicity) 3 MG/0.5ML; Inject 3 mg under the skin 1 (one) time per week., Starting Mon12/13/2024, Normal - alcohol prep pads; Use daily to clean area before checking blood sugars, Normal - Lancets Thin misc; Testing once a day, Normal - glucose blood test strip; Test once a day, Normal - pen needle 31G X 8 MM misc; Use as instructed, Normal - atorvastatin (Lipitor) 40 MG tablet; Take 1 tablet (40 mg) by mouth daily., Starting Mon12/13/2024, Until Mon02/11/2025, Normal 2. Steatosis of liver Assessment & Plan: -lovastatin not covered by insurance. Will switch to atorvastatin Orders: - atorvastatin (Lipitor) 40 MG tablet; Take 1 tablet (40 mg) by mouth daily., Starting Mon12/13/2024, Until Mon02/11/2025, Normal 3. Smoking history - nicotine polacrilex (Nicorette) 2 MG gum; Chew 1 each (2 mg) every 3 hours as needed for smoking cessation., Starting Mon12/13/2024, Until 01/12/2025 at 2359, Normal - nicotine (Nicoderm, Step 1) 21 MG/24HR patch; Place 1 patch on the skin Every 24 hours., Starting Mon12/13/2024, Until 04/12/2025, Normal 4. Encounter for screening mammogram for malignant neoplasm of breast - Bilateral screening mammogram with tomosynthesis 5. Lichen planus Assessment & Plan: -seen by dermatology. Has upcoming appointment. 6. Smoker Assessment & Plan: -discussed smoking cessation. Agreeable to trying nicotine replacement products. Defers Chantix at this time 7. Essential hypertension Assessment & Plan: -BP elevated today. Patient has been taking metoprolol tartrate once daily. Will have her take this twice daily and plan to recheck BP at next visit. Patient was involved and agreeable in shared decision making. Follow up in about 6 weeks (around 01/24/2025) for DM/A1c. Subjective HPI Amy Naidu is a 49 y.o. female patient that presents today for follow up. T2DM Weight Ozempic was ordered at last visit, but this was not covered by insurance. She is currently on Trulicity 1.5 mg weekly and metformin 500 mg BID. She has been on steroids for her lichen planus. She is planning on following up with her coding manager for different medication. She had an eye exam at [facility] recently. Hypertension She reports improvement in the clonidine. However, she has only been taking metoprolol once a day. Smoking Continues to smoke 0.5-1 pack daily. She has tried nicotine patches in the past but these were not sticky enough. Lichen planus rash is healing well after starting steroids. Review of Systems Respiratory: Negative for shortness of breath. Cardiovascular: Negative for chest pain. Gastrointestinal: Negative for constipation and diarrhea. Medications reviewed Medical history reviewed Allergies reviewed Objective BP (!) 156/100 Comment: manual Pulse 78 Temp 36.5 C (97.7 F) (Temporal) Ht 5' 5 (1.651 m) Wt 243 lb 8 oz (110 kg) LMP 06/02/2023 (Approximate) BMI 40.52 kg/m Last 3 weights: Wt Readings from Last 3 Encounters: 12/13/24 243 lb 8 oz (110 kg) 10/11/24 243 lb 6.4 oz (110 kg) 09/27/24 245 lb (111 kg) Physical Exam Constitutional: General: She is not in acute distress. Appearance: She is not ill-appearing. Cardiovascular: Rate and Rhythm: Normal rate and regular rhythm. Pulses: Normal pulses. Heart sounds: Normal heart sounds. No murmur heard. Pulmonary: Effort: Pulmonary effort is normal. No respiratory distress. Breath sounds: Normal breath sounds. No wheezing. Abdominal: General: Bowel sounds are normal. There is no distension. Palpations: Abdomen is soft. Tenderness: There is no abdominal tenderness. Musculoskeletal: Right lower leg: No edema. Left lower leg: No edema. Skin: Findings: Lesion (healing rash on feet and hands) present. Data Reviewed and Summarized Carter Thomson MD [facility] 12/15/24 4:48 PM Pt asked if they have been to specialist,been in ER /hospitalized or had testing since last visit. Yes, [facility] and labs Patient was able to ambulate safely to the examination room. Provider was not notified of possible fall risk INDIRECT SUPERVISION THIS SERVICE IS TO BE BILLED UNDER THE PRIMARY CARE EXCEPTION (MODIFIER -GE) During or immediately after this visit, I discussed this case with the treating resident. Our discussion included the history obtained by the resident, the resident's exam findings, and the resident's treatment plan. The resident's note reflects the information we discussed, and I agree with the resident's assessment and treatment plan. documented in this encounter [facility] 12-09-2024 Telephone encounter Note Form atting of this note might be different from the original. Last office visit: 10/11/24 Next office visit: 12/13/24 [facility] 12-09-2024 Miscellaneous Notes Formattin g of this note might be different from the original. Last office visit: 10/11/24 Next office visit: 12/13/24 documented in this encounter [facility] 11-18-2024 Telephone encounter Note Form atting of this note might be different from the original. Last office visit: 10/11/24 Next office visit: 12/13/24 [facility] 11-18-2024 Miscellaneous Notes Formattin g of this note might be different from the original. Last office visit: 10/11/24 Next office visit: 12/13/24 documented in this encounter [facility] 10-25-2024 Telephone encounter Note Form atting of this note might be different from the original. Last office visit: 10/11/2024 Next office visit: 12/13/2024 [facility] 10-25-2024 Miscellaneous Notes Formattin g of this note might be different from the original. Last office visit: 10/11/2024 Next office visit: 12/13/2024 documented in this encounter [facility] 10-11-2024 History of Presen t illness Narrative Pt asked if they have been to specialist,been in ER /hospitalized or had testing since last visit. NO Patient was able to ambulate safely to the examination room. Provider was not notified of possible fall risk PT IS ACCOMPANIED BY HER PARTNER TO TODAY'S VISIT. Images from the original note were not included. [address] [address] Dept: [phone] Dept Loc: [phone] Visit type: Established patient Reason for Visit: Follow-up (Follow up for blood pressure, rash, wants to discuss lead testing, and white rash on pt tongue) Assessment and Plan 1. Type 2 diabetes mellitus with hyperglycemia, without long-term current use of insulin (HCC) - semaglutide (Ozempic) 2 MG/1.5ML solution pen-injector; Inject 0.25 mg under the skin 1 (one) time per week., Starting Mon10/11/2024, Normal 2. 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 Lichen planus - External referral to Dermatology Oral cavity findings and skin findings could be due to palmoplantar pustulosis vs lichen planus vs other. Her dermatology appointment within [facility] isn't scheduled until January. Will place an external referral where she can get a sooner appointment. Recently picked up prescription for Trulicity injections. Will place an order for Ozempic, which could be better for weight loss than Trulicity. If she is not able to roll picker Ozempic due to recently getting the Trulicity injections, advised her to continue Trulicity for one more month then switching over to Ozempic. She does understand that she cannot take both injections at the same time. She will either roll picker the Ozempic OR continue Trulicity, then start Ozempic once she finishes off the rest of her Trulicity. Patient had blood work done at her previous PCP office few months ago. Results under media tab. Patient was involved and agreeable in shared decision making. Follow up in about 8 weeks (around 12/06/2024) for DM-. Subjective HPI Amy Naidu is a 49 y.o. female patient that presents today for follow-up of blood pressure and rash. At last visit, she noted concerns of excessive fatigue especially after taking the clonidine, which she was taking once a day. Due to patient only taking it once a day, this was stopped without tapering off. She has been monitoring her blood pressures at home and remain well-controlled despite stopping the clonidine. She notes significant improvement in her fatigue but symptoms still persist. Diabetes Weight gain Patient's hemoglobin A1c has been stable on her Trulicity and metformin. However, she does note weight gain of 45 pounds since starting Trulicity. She expresses frustration with this weight gain and wants to switch to an alternative where she can lose weight. She recently picked up her prescriptions for the Trulicity injections. In the last couple days, patient has noticed white spots on her tongue. She continues to smoke 1/2 pack daily but trying to cut down. Medications reviewed Medical history reviewed Allergies reviewed Objective BP 120/69 (BP Location: Left arm, Patient Position: Sitting, BP Cuff Size: Large adult) Pulse 71 Temp 36.5 C (97.7 F) (Temporal) Ht 5' 5 (1.651 m) Wt 243 lb 6.4 oz (110 kg) LMP 06/27/2024 (Within Months) Comment: going through menapause BMI 40.50 kg/m Last 3 weights: Wt Readings from Last 3 Encounters: 10/11/24 243 lb 6.4 oz (110 kg) 09/27/24 245 lb (111 kg) Physical Exam Constitutional: Appearance: Normal appearance. She is obese. She is not ill-appearing. HENT: Mouth/Throat: Comments: Oral cavity: White lacy pattern on her buccal mucosa, white patches on her tongue Cardiovascular: Rate and Rhythm: Normal rate and regular rhythm. Pulses: Normal pulses. Heart sounds: Normal heart sounds. Pulmonary: Effort: Pulmonary effort is normal. No respiratory distress. Breath sounds: Normal breath sounds. No wheezing. Abdominal: General: Bowel sounds are normal. Palpations: Abdomen is soft. Skin: Findings: Rash present. Comments: Diffuse papules on hands and feet with nail involvement. Data Reviewed and Summarized Carter Thomson MD [facility] 10/14/24 3:02 PM documented in this encounter [facility] 10-11-2024 History of Presen t illness Narrative Pt asked if they have been to specialist,been in ER /hospitalized or had testing since last visit. NO Patient was able to ambulate safely to the examination room. Provider was not notified of possible fall risk PT IS ACCOMPANIED BY HER PARTNER TO TODAY'S VISIT. Images from the original note were not included. [address] [address] Dept: [phone] Dept Loc: [phone] Visit type: Established patient Reason for Visit: Follow-up (Follow up for blood pressure, rash, wants to discuss lead testing, and white rash on pt tongue) Assessment and Plan 1. Type 2 diabetes mellitus with hyperglycemia, without long-term current use of insulin (HCC) - semaglutide (Ozempic) 2 MG/1.5ML solution pen-injector; Inject 0.25 mg under the skin 1 (one) time per week., Starting Mon10/11/2024, Normal 2. 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 Lichen planus - External referral to Dermatology Oral cavity findings and skin findings could be due to palmoplantar pustulosis vs lichen planus vs other. Her dermatology appointment within [facility] isn't scheduled until January. Will place an external referral where she can get a sooner appointment. Recently picked up prescription for Trulicity injections. Will place an order for Ozempic, which could be better for weight loss than Trulicity. If she is not able to roll picker Ozempic due to recently getting the Trulicity injections, advised her to continue Trulicity for one more month then switching over to Ozempic. She does understand that she cannot take both injections at the same time. She will either roll picker the Ozempic OR continue Trulicity, then start Ozempic once she finishes off the rest of her Trulicity. Patient had blood work done at her previous PCP office few months ago. Results under media tab. Patient was involved and agreeable in shared decision making. Follow up in about 8 weeks (around 12/06/2024) for DM-. Subjective HPI Amy Naidu is a 49 y.o. female patient that presents today for follow-up of blood pressure and rash. At last visit, she noted concerns of excessive fatigue especially after taking the clonidine, which she was taking once a day. Due to patient only taking it once a day, this was stopped without tapering off. She has been monitoring her blood pressures at home and remain well-controlled despite stopping the clonidine. She notes significant improvement in her fatigue but symptoms still persist. Diabetes Weight gain Patient's hemoglobin A1c has been stable on her Trulicity and metformin. However, she does note weight gain of 45 pounds since starting Trulicity. She expresses frustration with this weight gain and wants to switch to an alternative where she can lose weight. She recently picked up her prescriptions for the Trulicity injections. In the last couple days, patient has noticed white spots on her tongue. She continues to smoke 1/2 pack daily but trying to cut down. Medications reviewed Medical history reviewed Allergies reviewed Objective BP 120/69 (BP Location: Left arm, Patient Position: Sitting, BP Cuff Size: Large adult) Pulse 71 Temp 36.5 C (97.7 F) (Temporal) Ht 5' 5 (1.651 m) Wt 243 lb 6.4 oz (110 kg) LMP 06/27/2024 (Within Months) Comment: going through menapause BMI 40.50 kg/m Last 3 weights: Wt Readings from Last 3 Encounters: 10/11/24 243 lb 6.4 oz (110 kg) 09/27/24 245 lb (111 kg) Physical Exam Constitutional: Appearance: Normal appearance. She is obese. She is not ill-appearing. HENT: Mouth/Throat: Comments: Oral cavity: White lacy pattern on her buccal mucosa, white patches on her tongue Cardiovascular: Rate and Rhythm: Normal rate and regular rhythm. Pulses: Normal pulses. Heart sounds: Normal heart sounds. Pulmonary: Effort: Pulmonary effort is normal. No respiratory distress. Breath sounds: Normal breath sounds. No wheezing. Abdominal: General: Bowel sounds are normal. Palpations: Abdomen is soft. Skin: Findings: Rash present. Comments: Diffuse papules on hands and feet with nail involvement. Data Reviewed and Summarized Carter Thomson MD [facility] 10/14/24 3:02 PM I saw and evaluated the patient, participating in the laurent portions of the service. I reviewed the resident s note. I agree with the resident s findings and plan. Lesions in mouth and skin most consistent with lichen planus Maury Dickerson MD documented in this encounter [facility] 10-11-2024 Instructions Carter Thomson MD - 10/11/2024 3:45 PM EDT [facility] The following attachments cannot be sent through Care Everywhere.Semaglutide, ADULT ([place])documented in this encounter [facility] 10-11-2024 Instructions Carter Thomson MD - 10/11/2024 3:45 PM EDT [facility] The following attachments cannot be sent through Care Everywhere.Semaglutide, ADULT (Tu[place]uan)documented in this encounter [facility] 09-29-2024 Evaluation + Plan note Associ ated Problem(s): Type 2 diabetes mellitus with hyperglycemia (HCC) -A1c 6.7% today. At goal. Continue current medications [facility] 09-29-2024 Miscellaneous Notes Associate d Problem(s): Type 2 diabetes mellitus with hyperglycemia (HCC) -A1c 6.7% today. At goal. Continue current medications Associated Problem(s): Smoker -Recommend cutting down on smoking, offered Chantix or Wellbutrin. Patient defers Chantix or Wellbutrin at this time. She has tried nicotine replacement products in the past which she states were not helpful. Associated Problem(s): Essential hypertension -Continue amlodipine 10 mg -Increase metoprolol tartrate to BID -Stop clonidine. Would normally advise slow tapering of clonidine but she is only taking this once a day and seems to be causing her significant fatigue. Unclear why she is on clonidine. -Keep BP logs at home to bring to next visit, advised her to monitor for any rebound hypertension. She will call us or restart taking her clonidine if this becomes a concern. documented in this encounter [facility] 09-29-2024 Evaluation + Plan note Associ ated Problem(s): Smoker -Recommend cutting down on smoking, offered Chantix or Wellbutrin. Patient defers Chantix or Wellbutrin at this time. She has tried nicotine replacement products in the past which she states were not helpful. [facility] 09-29-2024 Evaluation + Plan note Associ ated Problem(s): Essential hypertension -Continue amlodipine 10 mg -Increase metoprolol tartrate to BID -Stop clonidine. Would normally advise slow tapering of clonidine but she is only taking this once a day and seems to be causing her significant fatigue. Unclear why she is on clonidine. -Keep BP logs at home to bring to next visit, advised her to monitor for any rebound hypertension. She will call us or restart taking her clonidine if this becomes a concern. [facility] 09-27-2024 History of Presen t illness Narrative Images from the original note were not included. [facility] - [address] [address] Dept: [phone] Dept Loc: [phone] Visit type: New patient Reason for Visit: New Patient (Establish care, Htn and DM2) Assessment and Plan 1. Encounter to establish care with new doctor 2. Type 2 diabetes mellitus with hyperglycemia, without long-term current use of insulin (HCC) Assessment & Plan: -A1c 6.7% today. At goal. Continue current medications Orders: - AMB POC HEMOGLOBIN A1C 3. Skin rash - [facility] 4. Essential hypertension Assessment & Plan: -Continue amlodipine 10 mg -Increase metoprolol tartrate to BID -Stop clonidine. Would normally advise slow tapering of clonidine but she is only taking this once a day and seems to be causing her significant fatigue. Unclear why she is on clonidine. -Keep BP logs at home to bring to next visit, advised her to monitor for any rebound hypertension. She will call us or restart taking her clonidine if this becomes a concern. 5. Smoker Assessment & Plan: -Recommend cutting down on smoking, offered Chantix or Wellbutrin. Patient defers Chantix or Wellbutrin at this time. She has tried nicotine replacement products in the past which she states were not helpful. 6. Other fatigue - Discussed with patient that fatigue and drowsiness is likely due to clonidine rather than metoprolol. She can stop taking clonidine. *Advised patient to sign release of records so we may get her labs and cancer screening results. Patient was involved and agreeable in shared decision making. Follow up in about 6 weeks (around 11/08/2024) for smoking/rash/BP off clonidine. Patient will monitor for refractory hypertension and call our office if BP is persistently high when she stops taking the clonidine. Subjective HPI Amy Naidu is a 49 y.o. female patient that presents today to establish care. History of type 2 diabetes She is currently on Trulicity, Actos for the last 1.5 years. She reports she was placed on Trulicity due to concerns for weight. She reports that she actually gained weight on the Trulicity. Checks her sugars at home, fasting sugars tend to be 150-160, this morning was 128. She reports her A1c was 7.1% 3 months ago. Hypertension She reports history of refractory hypertension for which she was in the hospital. She reports she was started on clonidine at that time, which she only takes once daily. She is also on amlodipine 10 mg for blood pressure. She does not recall being on any other medications for this. She is not sure why she is on clonidine for blood pressure. She only takes clonidine and metoprolol once a day because she feels sleepy after taking her medications. Both patient and partner report that she falls asleep immediately after taking her medications. She did have a cath 4 years ago, which was normal. According to her partner, she does not snore at night, and denies any witnessed apneic episodes. Skin rash She reports ongoing rash of her feet and hands, she was advised to use a steroid cream and does note some improvement. Past medical history: Hypertension, type 2 diabetes, history of renal stones, last colonoscopy 1 year ago was normal. She had a Pap smear last year which was normal. Surgical history: 2 C-sections. Breast reduction surgery. 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 Smokes half pack daily for the last 20 years. Denies any alcohol use. Denies any illicit drug use. Diet: Patient reports she eats sweets about 1-2 times a week, drinks Pepsi occasionally. She is trying to cut down on her juice intake. Otherwise reports that she tries to eat healthy. For exercise, she reports that she takes the stairs a lot. Family history: Father with history of diabetes and hypertension. Mother with history of hypertension and had a hysterectomy for cervical cancer. Medications reviewed Medical history reviewed Allergies reviewed Objective BP 113/75 Pulse 72 Temp 36.6 C (97.9 F) (Temporal) Ht 5' 5 (1.651 m) Wt 245 lb (111 kg) LMP 06/27/2024 (Within Months) Comment: going through menapause BMI 40.77 kg/m Physical Exam Constitutional: General: She is not in acute distress. Appearance: Normal appearance. She is obese. Cardiovascular: Rate and Rhythm: Normal rate and regular rhythm. Pulses: Normal pulses. Heart sounds: Normal heart sounds. Pulmonary: Effort: Pulmonary effort is normal. No respiratory distress. Breath sounds: Normal breath sounds. No wheezing. Abdominal: General: Bowel sounds are normal. There is no distension. Palpations: Abdomen is soft. Tenderness: There is no abdominal tenderness. Musculoskeletal: Right lower leg: No edema. Left lower leg: No edema. Skin: General: Skin is warm and dry. Findings: Rash present. Comments: Rash on feet Similar rash on hands involving fingernails, images below Neurological: Mental Status: She is alert. Data Reviewed and Summarized Carter Thomson MD [facility] 09/29/24 5:53 PM Patient was able to ambulate safely to the examination room. Provider was not notified of possible fall risk Pt asked if they have been to specialist,been in ER /hospitalized or had testing since last visit. Rash 09/20/24 INDIRECT SUPERVISION THIS SERVICE IS TO BE BILLED UNDER THE PRIMARY CARE EXCEPTION (MODIFIER -GE) During or immediately after this visit, I discussed this case with the treating resident. Our discussion included the history obtained by the resident, the resident's exam findings, and the resident's treatment plan. The resident's note reflects the information we discussed, and I agree with the resident's assessment and treatment plan. documented in this encounter [facility] 09-27-2024 Instructions Carter Thomson MD - 09/27/2024 2:45 PM EDT Take metoprolol twice a day The following attachments cannot be sent through Care Everywhere.How to Keep Track of Your Heart Rate and Blood Pressure (Tuvaluan)Checking Your Blood Pressure at Home (Tuvaluan)documented in this encounter [facility] 09-20-2024 Discharge summary [facility] 09-20-2024 Hospital Discharge instructions Additional Instructions Your lab work was largely normal. Your blood sugar was mildly elevated at 158. Continue take your diabetic medications. I suspect this is some type of dermatitis likely dyshidrotic eczema versus viral (I suspect this is less likely). You been given a topical potent steroids to apply to your hands and feet twice a day. In the meantime try to use good lotion multiple times throughout the day to keep the skin nice and moist. I recommend Eucerin eczema lotion. And oil based lotion is preferred to a water base lotion. Please follow-up with dermatology. [facility] Work Phone: 07-07-2024 Radiology Diagnostic study note [facility] Imaging Services [address], [place] [id number] Soft Tissue Neck WITH Contrast MR#: [id number] Acct: [id number] Name: AMY NAIDU Rep #: [id number] : 1975 F 49 From: Barbara Tuttle MD PCP: Care Physician,No Primary Status: REG ER Study:Soft Tissue Neck WITH Contrast Date of Exam: 07/07/24 Exam# [id number] Ordering Dr: Elmira Quinonez PROCEDURE: SOFT TISSUE [...] and physical exam correlation recommended. Reading Location: [facility] CC: MAYNOR Zhu; No Primary Care Physician ~ Warp Tester: Signed [facility] 05-15-2023 Progress note Note Date/Time May 15, 2023 7:48am [place] [address] Pre-Anesthesia Note Signed Patient: Amy Naidu MR#: [id number] : 1975 Acct: [id number] Age/Sex: 48 / F ADM Date: 4 0748 Loc: [facility]. Attending Dr: Roman [...] No Would like to be referred to [employer] for info?: No Smoking Status: Current every [...] high school graduate Spiritual Healthcare Practices: denies Spiritism Healthcare Practices: denies Cultural Healthcare Practices: denies [...] signed by Cata Boss M.D.> 05/15/23 0748 [facility] Work Phone: Chief complaint+Reason for visit Narrative* Chief Complaint referral/Block Headache Headache Reason for Visit Daytime sleepiness Fatigue Hypertension, poor control [facility] Work Phone: Discharge summary Author Kerry Rutherford [facility] Note Date/Time September 20, 2024 11:1 1am [facility] System Medical Records Department [address] [place] [address] Emergency Department Summary 09/20/24 MR#: [id number] Acct: [id number] Name: AMY NAIDU Rep #:[id number] : 1975 49 From: Kerry Santizo PCP: Care Physician,No Primary Status :REG ER Location: ED HPI History of Present Illness Chief Complaint: Rash Informant: patient Narrative Narrative: Patient is a 49-year-old female with history of diabetes mellitus (on weekly Trulicity as well as metformin) and hypertension presenting with rash to her hands and her feet. Been going on for about a month. She feels it is worsening. States it started as small splotches on her hands. She states it isitchy and she has a pins and needle sensation in her feet which is making it very hard for her to sleep. Was seen at urgent care earlier on the course and given some type of cream which does not recall the name of it. She states she ran out of the cream but did not think it was very helpful. Has never had a rash like this before. Was see about 2 months ago for swollen lymph node on herneck. She notes she has had very mild allergy symptoms and has not thought muchof it. She denies any fevers. Denies any known history of syphilis or new sexual partners. Denies any other systemic symptoms. Is tried taking Tylenol as well with no relief. Notes her blood sugars have been running a little higher lately. Chart review shows that patient was seen on for left-sided submandibular swelling. Had CT consistent with asymmetric enlargement of left parotid gland with scattered intraparotid nodes, likely reactive. Most consistent with parotitis infectious versus inflammatory etiology. There is also some swelling of the left auricular cartilage which was indeterminant but could be perichondritis. Patient was treated with a course of Augmentin at that time. [facility] Medical History HTN (hypertension) Diabetes mellitus, type II Home Medications ?Medication ?Instructions ?Recorded ?Last Taken ?Type amoxicillin 875 mg-potassium 1 tab PO BID #14 tabs 09/25 Unknown Rx clavulanate 125 mg tablet cetirizine 10 mg tablet (Zyrtec) 10 mg PO DAILY #14 ta bs 09/20/24 Unknown Rx clobetasol 0.05 % topical ointment 1 applic topical BI D 2 weeks #60 09/20/24 Unknown Rx grams gabapentin 100 mg capsule 100 mg PO BID PRN nerve pain #20 09/20/24 Unknown Rx caps Allergy/AdvReac Type Severity Reaction Status Date / Time No Known Allergies Allergy Verified 09/20/24 08:45 Social History Smoking Status: Current some day smoker tobacco type: cigarettes ROS ROS ED Constitutional Constitutional ED: Denies chills or fever(s) ENT ENT ED: Denies sore throat Cardiovascular Cardiovascular: Denies chest pain Respiratory/Chest Respiratory/Chest: Denies cough or dyspnea Gastrointestinal Gastrointestinal: Denies nausea or vomiting Musculoskeletal Musculoskeletal: Denies arthralgias or myalgias Integumentary Reports rash Neurologic Neurologic: Reports paresthesias and other Details: Pins and needle sensation ofthe feet?new over the past month ; Denies weakness EXAM Physical Exam Const Vital Signs: 09/20/24 08:45 Temperature 98.2 F Temperature Source Oral Pulse Rate 88 Respiratory Rate 16 Blood Pressure 152/109 H Blood Pressure Mean 123 Pulse Ox 97 Oxygen Delivery Method Room Air Positive well nourished and well developed General Appearance ED: well developed and NAD HEENT Reports TM's clear and moist mucous membranes HEENT Narrative: Normal external ears. No pain with palpation of the ears. Subtle lymphadenopathy present of the left submandibular neck. Normal oropharynx. No lesions in the throat noted. Tympanic Membrane ED: Yes TM's clear Eyes PERRL Neck supple Chest Wall inspection of chest normal and palpation of chest normal Resp normal respiratory effort and clear to auscultation bilaterally Cardio regular rate and regular rhythm GI normal to inspection, nondistended, normoactive bowel sounds and non-tender Extremity normal to inspection Extremity Narrative: Mild tenderness in the bilateral feet around the heels. General Extremety ED: Negative for edema General Extremity: Negative for edema Neuro oriented x3 Sensorium / Orientation: alert Skin Skin Narrative: Scattered erythematous rash of the hands (including the palms) and feet (including the soles). There are mixed sizes of lesions in various stages of healing with scaling noted on the hands and the feet. Nonblanching with circumferential lesions that do seem to cluster around the cuticles, slightly raised as well as just throughout the hands/feet with mild tracking proximately throughout. Negative Nikolsky sign. No splinter hemorrhages appreciated. MDM MDM MDM Narrative Medical decision making narrative: Patient valuated for painful and itchy rash to her hands and feet. She is clinically well-appearing. No systemic symptoms. Differential includes secondary syphilis, dermatitis (suspect dyshidrotic eczema), viral illness. Will check basic labs including syphilis titer. These are largely normal. Glucose mildly elevated at 158. She does have a history ofdiabetes and I would like to avoid systemic steroids at this time. Patient reports understand this. Patient will give referral for dermatology. Will be started on superhigh potency steroids for this (clobetasol), daily Zyrtec and given short prescription for gabapentin for the pain in her feet as it is more of a neuropathy type pain. Is given follow-up information for dermatology. Discussed at this time I think this is safe for outpatient follow-up but likely more immune mediated versus allergy. She verbalized understanding of this. Discharged home in stable condition. Lab Data Attestation: I reviewed the patient's lab results. Labs: Laboratory Results - last 24 hr 09/20/24 09:13 WBC 8.7 RBC 4.41 Hgb 12.6 Hct 38.9 MCV 88.2 MCH 28.6 MCHC 32.4 RDW Std Deviation 50.8 H RDW Coeff of Aiden 15.7 H Plt Count 270 MPV 12.2 H Immature Gran % (Auto) 0.200 Neut % (Auto) 66.2 Lymph % (Auto) 24.7 Mcdowell % (Auto) 7.3 Eos % (Auto) 1.1 Baso % (Auto) 0.5 Absolute Neuts (auto) 5.8 Absolute Lymphs (auto) 2.15 Nucleated RBC % 0 Sodium 141 Potassium 4.0 Chloride 107 Carbon Dioxide 23.5 Anion Gap 11 BUN 17 Creatinine 0.82 Estim Creat Clear Calc 105.67 Est GFR (MDRD) Non-Af 89 BUN/Creatinine Ratio 21.1 H Glucose 158 H Calcium 9.0 Total Bilirubin 0.31 AST 35 H ALT 60 H Alkaline Phosphatase 95 Total Protein 7.0 Albumin 4.0 Globulin 3.0 Albumin/Globulin Ratio 1.3 Syphilis Total Ab Nonreactive Discharge Plan Triage Chief Complaint: Rash ED Provider: Kerry Rutherford Dx/Rx/DC Orders Clinical Impression: Dermatitis, History of diabetes mellitus Instructions: ED Atopic Dermatitis (Adult) Prescriptions: New clobetasol 0.05 % ointment 1 applic topical BID 14 Days Qty: 60 0RF cetirizine [Zyrtec] 10 mg tablet 10 mg PO DAILY Qty: 14 0RF gabapentin 100 mg capsule 100 mg PO BID PRN (Reason: nerve pain) Qty: 20 0RF Rx Instructions: Start with once a day for 2 to 3 days and then may increase to twice a day after that. No Action amoxicillin-pot clavulanate 875-125 mg tablet 1 tab PO BID Qty: 14 0RF Primary Care Provider: Care Physician,No Primary Referrals: Bakari Tanner MD [Med Staff - Vehicle Delivery Worker] - Care Physician,No Primary [Primary Care Provider] - Activity Restrictions/Additional Instructions: Your lab work was largely normal. Your blood sugar was mildly elevated at 158. Continue take your diabetic medications. I suspect this is some type of dermatitis likely dyshidrotic eczema versus viral (I suspect this is less likely). You been given a topical potent steroids to apply to your hands and feet twice a day. In the meantime try to use good lotion multiple times throughout the day to keep the skin nice and moist. I recommend Eucerin eczema lotion. And oil based lotion is preferred to a water base lotion. Please follow-up with dermatology. Print Language: Tuvaluan Disposition Disposition: Home, Self Care What to do if you have Problems For any increased pain, shortness of breath, bleeding, nausea or vomiting, chestpain, or any unexpected problems, contact your Primary Care Provider. Call [facility] ([phone]) or report to the closest Emergency Room. Call 911 if necessary. 09/20/24 1111 <Electronically signed by Kerry Rutherford DO> Cosigner Signature (if applicable): CC: No Primary Care Physician ~ Signed [facility] Work Phone: Evaluation note* Diagnosis Onset Date Resolution Status Daytime sleepiness noneactiv e Fatigue noneactive Hypertension, poor control n oneactive [facility] Work Phone: Evaluation noteNo assessment information available [facility] Work Phone: Evaluation note* Diagnosis Onset Date Resolution Status Low back pain noneactive [facility] Work Phone: evaluation note* Diagnosis Onset Date Resolution Status Low back pain noneactive Abdominal pain acute Diverticulosis acute Hepatic steatosis acute Positive colorectal cancer s creening using Cologuard test acute Acute cystitis with hematuria noneactive Dysuria noneactive Positive colorectal cancer s creening using Cologuard test acute [facility] Work Phone: Evaluation note* Diagnosis Onset Date Resolution Status Low back pain noneactive Abdominal pain acute Diverticulosis acute Hepatic steatosis acute Positive colorectal cancer s creening using Cologuard test acute Acute cystitis with hematuria noneactive Dysuria noneactive Positive colorectal cancer s creening using Cologuard test acute Diverticulosis acute Hyperplastic colon polyp acu te [facility] Work Phone: Evaluation note* Diagnosis Encounter to establish care with new doctor- Primary Type 2 diabetes mellitus with hyperglycemia, without long-term current use of insulin (HCC) Skin rash Rash and other nonspecific skin eruption Essential hypertension Unspecified essential hypertension Smoker Tobacco use disorder Other fatigue [facility] Encounter to establish care with new doctor- Primary Type 2 diabetes mellitus with hyperglycemia, without long-term current use of insulin (HCC) Skin rash Rash and other nonspecific skin eruption Essential hypertension Unspecified essential hypertension Smoker Tobacco use disorder Other fatigue Type 2 diabetes mellitus with hyperglycemia, without long-term current use of insulin (HCC)- Primary Class 3 severe obesity due to excess calories with body mass index (BMI) of 40.0 to 44.9 in adult, unspecified whether serious comorbidity present Palmoplantar pustulosis Other psoriasis Lichen planus [facility] Diagnosis Encounter to establish care with new doctor- Primary Type 2 diabetes mellitus with hyperglycemia, without long-term current use of insulin (HCC) Skin rash Rash and other nonspecific skin eruption Essential hypertension Unspecified essential hypertension Smoker Tobacco use disorder Other fatigue Type 2 diabetes mellitus with hyperglycemia, without long-term current use of insulin (HCC)- Primary Class 3 severe obesity due to excess calories with body mass index (BMI) of 40.0 to 44.9 in adult, unspecified whether serious comorbidity present Palmoplantar pustulosis Other psoriasis Lichen planus [facility] Diagnosis Encounter to establish care with new doctor- Primary Type 2 diabetes mellitus with hyperglycemia, without long-term current use of insulin (HCC) Skin rash Rash and other nonspecific skin eruption Essential hypertension Unspecified essential hypertension Smoker Tobacco use disorder Other fatigue Type 2 diabetes mellitus with hyperglycemia, without long-term current use of insulin (HCC) Steatosis of liver Other chronic nonalcoholic liver disease [facility] Diagnosis Encounter to establish care with new doctor- Primary Type 2 diabetes mellitus with hyperglycemia, without long-term current use of insulin (HCC) Skin rash Rash and other nonspecific skin eruption Essential hypertension Unspecified essential hypertension Smoker Tobacco use disorder Other fatigue Type 2 diabetes mellitus with hyperglycemia, without long-term current use of insulin (HCC)- Primary Steatosis of liver Other chronic nonalcoholic liver disease Smoking history Encounter for screening mammogram for malignant neoplasm of breast Lichen planus Smoker Tobacco use disorder Essential hypertension Unspecified essential hypertension [facility] Diagnosis Encounter to establish care with new doctor- Primary Type 2 diabetes mellitus with hyperglycemia, without long-term current use of insulin (HCC) Skin rash Rash and other nonspecific skin eruption Essential hypertension Unspecified essential hypertension Smoker Tobacco use disorder Other fatigue Type 2 diabetes mellitus with hyperglycemia, without long-term current use of insulin (HCC)- Primary Steatosis of liver Other chronic nonalcoholic liver disease Smoking history Encounter for screening mammogram for malignant neoplasm of breast Lichen planus Smoker Tobacco use disorder Essential hypertension Unspecified essential hypertension documented in this encounter [facility] and physical note Author Roman Breaux [facility] April 17, 2023 9:09am Note Date/Time April 17, 2023 9 :09am [address] [address] General Surg History&Physical Signed Patient: Amy Naidu MR#: [id number] : 1975 Acct: [id number] Age/Sex: 47 / F ADM Date: 4 08 [facility] Dr: Roman Breaux D.O. cc: Roman [...] No Would like to be referred to [facility] for info?: No Smoking Status: Current every [...] high school graduate Spiritual Healthcare Practices: none Spiritism Healthcare Practices: none Cultural Healthcare Practices: none [...] <Electronically signed by Roman Breaux D.O.> 04/17/23 09 [facility] Work Phone: History and physical note Author Roman Breaux [facility] May 15, 2023 8:22am Note Date/Time May 15, 2023 8:22am [place] [address] History & Physical Update Signed Patient: Amy Naidu MR#: [id number] : 1975 Acct: [id number] Age/Sex: 48 / F ADM Date: 820 Loc: [facility] Attending Dr: Roman Breaux D.O. cc: Roman Breaux D.O.~ Review Pre-Op Review The H&P was reviewed, the patient was examined, and no change has occurred in the patient?s condition since the H&P was completed.: Yes Documented By: Roman Breaux D.O. 05/15/23820 Signed By: <Electronically signed by Roman Breaux D.O.> 05/15/23821 [facility] Work Phone: Hospital Discharge instructions Additional Instructions [...] received or have any concerns please call [phone] and we will be happy to assist you. Thank you for choosing [facility]. -You may receive a survey after your visit today at the Emergency Room. Your feedback is very important to me and the [facility] organization as a whole. We appreciate any feedback that you may have as this allows me and the [facility] team to continue to improve the care that we provide.[facility] Work Phone: Hospital Discharge instructions Additional Instructions Follow-up with ENT in 1 week if no improvement of your symptoms. Apply warm compresses to the area several times daily. You could also try sucking on sugar-free sour candy to help produce saliva.[facility] Work Phone: Instructions* Attachments The following attachments cannot be sent through Care Everywhere. * Atorvastatin, ADULT ([place]) [facility] Attachments The following attachments cannot be sent through Care Everywhere. * Atorvastatin, ADULT ([place]) [facility] Author Tree Reardon [facility] April 17, 2023 8:41am Note Date/Time April 17, 2023 8 :39am [place] [address] Pre-Anesthesia Note Signed Patient: Amy Naidu MR#: [id number] : 1975 Acct: [id number] Age/Sex: 47 / F ADM Date: 4 0838 [facility] Attending Dr: Roman Breaux D.O. cc: rTee Reardon D.O.~ Prior Anesthesia Anesthesia History Previous [...] History (Updated 04/10/23 @ 16:23 by Sully Tavarez, RN) H/O lithotripsy History of Hx of cardiac cath no stents Family History Father Diabetes Social History Advance Directives: No Advance Directives Information Provided: Yes Advance Directives on File: No Would like to be referred to [employer] [employer] for info?: No Smoking Status: Current every [...] high school graduate Spiritual Healthcare Practices: none Spiritism Healthcare Practices: none Cultural Healthcare Practices: none [...] signed by Tree Reardon D.O.> 04/17/23 0841 [facility] Work Phone: Progress note Author Cata Boss [facility] May 15, 2023 10:15am Note Date/Time May 15, 2023 10:15am [address] [address] Post Anesthesia Note Signed Patient: Amy Naidu MR#: [id number] : 1975 Acct: [id number] Age/Sex: 48 / F ADM Date: 4 1015 [facility]: Roman Breaux D.O. cc: Cata Boss M.D.~ Anesthesia Post Op Evaluation Procedure Procedure: Procedures Operation Date: 05/15/23 08:30 Actual Procedure Side Surgeon noreen COLONOSCOPY Left Roman Breaux DO Post Anesthesia [...] signed by Cata Boss M.D.> 05/15/23 1015 [facility] Work Phone: Reason for referral (narrative)No reason for [facility] Work Phone: Summary Purpose Family History [...] Do you have a Healthcare Power of Prom Burn Off Operator? No July 07, 2024 12:02pm Advance Directive Response Recorded Date/ Time Living Will No July 07, 2024 12:02pm Do you have a Healthcare Power of Prom Burn Off Operator? No July 07, 2024 12:02pm Do you have a Healthcare Power of Prom Burn Off Operator? No September 20, 2024 8:58am Advance Directive Response Recorded Date/ Time Do you have a Healthcare Power of Prom Burn Off Operator? No September 20, 2024 8:58am Chief Complaint and Reason for Visit Chief [...] EAR PROBLEM July 07, 2024 11:5 3am Chief Complaint Admit Date EAR PROBLEM July 07, 2024 11:5 3am RASH September 20, 2024 8:45 am Chief Complaint Admit Date RASH September 20, 2024 8:45 am PLEASE FAX RESULTS TO [facility] [phone] December 06, 2024 2:12pm Additional Source Comments INFORMATION SOURCE (unrecogn ized section and content) DATE CREATED AUTHOR 06/25/2019 [facility] DATE CREATED AUTHOR AUTHOR'S ORGANIZ ATION 07/01/2020 [facility] DATE CREATED AUTHOR AUTHOR'S ORGANIZ ATION 05/27/2021 [facility] DATE CREATED AUTHOR AUTHOR'S ORGANIZ ATION 06/10/2023 [facility] DATE CREATED AUTHOR AUTHOR'S ORGANIZ ATION 12/24/2024 [facility] DATE CREATED AUTHOR AUTHOR'S ORGANIZ ATION 01/03/2025 [facility] Goals (unrecognized section and content) Goals may [...] , DO Primary Care Provider Active Shaunna Estevez Other Provider Active Graham Baum , DO [...] , DO Primary Care Provider Active Shaunna Estevez Attending Provider Active Team Status: Inactive Member [...] Roman Breaux , DO Attending Provider Active [facility][Note 2] Primary Care Provider Active Team Status: Inactive [...] DO Attending Provider, Other Prov ider Active [facility][Note 2] Primary Care Provider Active Team Status: Inactive Member Role Status Dates [facility] [place][Note 2] Primary Care Provider Active Roman Breaux , DO Attending Provider Active Team Status: Active Member Role Status Dates [facility] [place][Note 2] Primary Care Provider Active Roman Breaux DO Attending Provider Active Team Status: Active Member Role Status Dates [facility] [place][Note 2] Primary Care Provider Active Roman Breaux , [...] July 07, 2024 End: July 07, 2024 Team Status: Inactive Member Role Status Dates No Primary Care Physician Primary Care Provider Active Start: July 07, 2024 End: July 07, 2024 Dr. Davis Webb , Attending Provider Active Start: July 07, 2024 End: July 07, 2024 Dr. Davis Webb , DO Emergency Provider Active Start: July 07, 2024 End: July 07, 2024 Team Status: Inactive Member Role Status Dates No Primary Care Physician Primary Care Provider Active Start: September 20, 2024 End: September 20, 2024 Dr. Kerry Rutherford , DO Emergency Provider Active Start: September 20, 2024 End: September 20, 2024 Geospatial Technician Relationship Specialty Start Date End Date Carter Thomosn MD [address] [place] [address] PCP - General 09/27/24 Geospatial Technician Relationship Specialty Start Date End Date Carter Thomson MD [address] [place] [address] PCP - General 09/27/24 Geospatial Technician Relationship Specialty Start Date End Date Carter Thomson MD [address] [place] [address] PCP - General 09/27/24 Geospatial Technician Relationship Specialty Start Date End Date Carter Thomson MD [address] [place] [address] PCP - General 09/27/24 Geospatial Technician Relationship Specialty Start Date End Date Carter Thomson MD [address] [place] [address] PCP - General 09/27/24 Geospatial Technician Relationship Specialty Start Date End Date Carter Thomson MD [address] [place] [address] PCP - General 09/27/24 Geospatial Technician Relationship Specialty Start Date End Date Carter Thomson MD [address] [place] [address] PCP - General 09/27/24 Geospatial Technician Relationship Specialty Start Date End Date Carter Thomson MD [address] [place] [address] PCP - General 09/27/24 Geospatial Technician Relationship Specialty Start Date End Date Carter Thomson MD [address] [place] [address] PCP - General 09/27/24 Team Status: Active Member Role/Relationship Status Dates CARTER THOMSON Primary care physician Active Team Status: Inactive Member Role/Relationship Status Dates No Primary Care Physician Primary care physician Activ e Start: September 20, 2024 End: September 20, 2024 Dr. Kerry Rutherford DO Attending physician Active Start: September 20, 2024 End: September 20, 2024 Dr. Kerry Rutherford DO Emergency Departm ent Physician Active Start: September 20, 2024 End: September 20, 2024 Team Status: Inactive Member Role/Relationship Status Dates BERTO MACHADO Primary care physician Active Star t: December 06, 2024 End: December 06, 2024 MAYNOR Post Attending physician Active St art: December 06, 2024 End: December 06, 2024 MAYNOR Post Referring Provider Active Sta rt: December 06, 2024 End: December 06, 2024 Reason for Visit (unrecogniz ed section and content) Reason Comments New Patient Establish care, Htn and DM2 Reason Comments Follow-up Follow up for blood pressure, rash, wants to discuss lead testing, and white rash on pt tongue Reason Comments Follow-up Follow up for blood pressure, rash, wants to discuss lead testing, and white rash on pt tongue Reason Onset Date Comments Med Refill 10/25/2024 Reason Onset Date Comments Med Refill 11/16/2024 Reason Comments Med Refill Reason Comments Follow-up Dm, rash check up/de rmatology, medications issues Reason Onset Date Comments Med Refill 12/20/2024 Reason Onset Date Comments Med Refill 12/27/2024 FOR RECORDS PERTAINING TO PATIENTS WHO ARE [...] BE BASED ON THE PRIMARY CLINICAL RECORDS. [facility] [employer] [facility]. provides no warranty or guarantee of the accuracy or completeness of information in this document.
--- NOTE | 2025-01-19 10:35 | ED.VIS.BACK ---
HPI History of Present Illness Chief Complaint: Back Narrative Narrative: Chief complaint and HPI: 49-year-old female with past medical history of HTN presents for evaluation of left-sided lumbar back pain. Onset of symptoms several days ago. Described as aching. She denies any trauma or injury. Denies numbness, weakness, urinary retention, stool or urinary incontinence, saddle anesthesia, recent invasive manipulation of the spine, intravenous drug use, or fever. Review of systems: See HPI Medications: As listed on the chart Allergies: As listed on the chart PFSH: Per chart Vital signs: As listed on the chart. Reviewed. Physical exam: Gen: A&O x3, NAD Head: Normocephalic, atraumatic Eyes: No sclera icterus, conjunctiva clear ENT: Moist mucous membranes Neck: Full range of motion, nontender CV: RRR, no murmurs Resp: Lungs CTA BL, no w/r/c GI: Abd soft, non-distended, non-tender, no r/r/g Musc: Full ROM, no deformity, no midline spinal tenderness, no bony step-off, no signs of trauma or infection, the paraspinal musculature on the left lumbar spine are tense-with palpation this recreates her pain, DP/PT pulses +2 bilaterally, no peripheral edema, compartments soft, normal capillary refill, strength +5/5 in all extremities, no saddle paresthesia Skin: Warm, dry Neuro: Alert, oriented, grossly intact, sensation intact Psych: Cooperative, appropriate mood and affect [facility] Medical History HTN (hypertension) Diabetes mellitus, type II Home Medications ?Medication ?Instructions ?Recorded ?Last Taken ?Type amoxicillin 875 mg-potassium 1 tab PO BID #14 tabs 07/07/24 Unknown Rx clavulanate 125 mg tablet cetirizine 10 mg tablet (Zyrtec) 10 mg PO DAILY #14 tabs 09/20/24 Unknown Rx clobetasol 0.05 % topical ointment 1 applic topical BID 2 weeks #60 09/20/24 Unknown Rx grams gabapentin 100 mg capsule 100 mg PO BID PRN nerve pain #20 09/20/24 Unknown Rx caps cyclobenzaprine 5 mg tablet 5 mg PO TID PRN muscle spasm 3 01/19/25 Unknown Rx days #9 tabs Allergy/AdvReac Type Severity Reaction Status Date / Time hydromorphone (From Dilaudid) Allergy Itching Verified 01/19/25 09:23 Social History Smoking Status: Current some day smoker tobacco type: cigarettes EXAM Physical Exam Const Vital Signs: 01/19/25 09:22 Temperature 98 F Temperature Source Oral Pulse Rate 82 Respiratory Rate 18 Blood Pressure 142/89 H Blood Pressure Mean 106 Pulse Ox 100 Oxygen Delivery Method Room Air MDM MDM MDM Narrative Medical decision making narrative: 49-year-old female with past medical history of HTN presents for evaluation of left-sided lumbar back pain. She denies any trauma or injury. There is nothing to suggest any infectious etiology. The patient is not an IV drug user. There is no neurologic findings to suggest an acute cauda equina syndrome, infectious etiology, or any acute radiculopathy. At this point I do not feel any emergent imaging such as x-rays or MRI are warranted. Patient symptoms will be treated with IM Toradol and Valium as a muscle relaxer. Suspect lumbar back spasm versus strain. On reevaluation, patient's pain has improved. She is comfortable discharging home. Will send her home with muscle relaxers as needed. Recommended ibuprofen and Tylenol. IcyHot, rest, heating pad as needed. Follow-up with primary care physician. She confirmed understand the plan. Patient discharged home. Impression: 1. Lumbar spasm Discharge Plan Triage Chief Complaint: Back ED Provider: Michael Shah Dx/Rx/DC Orders Clinical Impression: Back muscle spasm Instructions: ED Back Spasm, No Trauma Prescriptions: New cyclobenzaprine 5 mg tablet 5 mg PO TID PRN (Reason: muscle spasm) 3 Days Qty: 9 0RF No Action amoxicillin-pot clavulanate 875-125 mg tablet 1 tab PO BID Qty: 14 0RF clobetasol 0.05 % ointment 1 applic topical BID 14 Days Qty: 60 0RF cetirizine [Zyrtec] 10 mg tablet 10 mg PO DAILY Qty: 14 0RF gabapentin 100 mg capsule 100 mg PO BID PRN (Reason: nerve pain) Qty: 20 0RF Rx Instructions: Start with once a day for 2 to 3 days and then may increase to twice a day after that. Primary Care Provider: Care Physician,No Primary Referrals: Alexei Gutierrez MD [Med Staff - Active Staff, Family Practice] - 3-5 Days Activity Restrictions/Additional Instructions: You received a muscle relaxer here in the emergency department. Do not drive or operate heavy machinery while taking muscle relaxer. Next muscle relaxer can be taken in 8 hours. Muscle relaxers can increase confusion, falls, weakness, fatigue. Received Toradol here in the emergency department, no ibuprofen for 8 hours. Afterwards okay for ibuprofen. Okay for Tylenol. IcyHot. Rest. Heating pad as needed. Follow-up with primary care physician. If you do not have a primary care physician follow-up with the one listed above. Return back to ED symptoms change or worsen. Print Language: Colombian Disposition Disposition: Home, Self Care
[2025-01-19 11:21] VITALS: BP 142/89; PULSE 82; RESP 18; TEMP 36.6; O2SAT 100
== END 2025-01-19 11:25 | disposition home or self-care (01) ==
PROVIDERS: Emergency Provider Surgery; Visit Provider Surgery
DX: M62.830 Muscle spasm of back (principal); E11.9 Type 2 diabetes mellitus without complications; F17.210 Nicotine dependence, cigarettes, uncomplicated
CPT/HCPCS: 96372; 99282

== ENCOUNTER 2025-03-12 16:33 | Emergency (ER) | payer MEDICAID, SELFPAY ==
[2025-03-12 16:34] VITALS: BP 139/85; PULSE 84; RESP 18; TEMP 36.4; O2SAT 99
--- NOTE | 2025-03-12 17:31 | EX.ED.DYSGE1 ---
HPI History of Present Illness Chief Complaint: Back [facility] Medical History HTN (hypertension) Diabetes mellitus, type II Home Medications ?Medication ?Instructions ?Recorded ?Last Taken ?Type amoxicillin 875 mg-potassium 1 tab PO BID #14 tabs 07/07/24 Unknown Rx clavulanate 125 mg tablet cetirizine 10 mg tablet (Zyrtec) 10 mg PO DAILY #14 tabs 09/20/24 Unknown Rx clobetasol 0.05 % topical ointment 1 applic topical BID 2 weeks #60 09/20/24 Unknown Rx grams gabapentin 100 mg capsule 100 mg PO BID PRN nerve pain #20 09/20/24 Unknown Rx caps cyclobenzaprine 5 mg tablet 5 mg PO TID PRN muscle spasm 3 01/19/25 Unknown Rx days #9 tabs orphenadrine citrate 100 mg 100 mg PO BID #14 tabs 03/12/25 Unknown Rx tablet,extended release oxycodone 5 mg tablet 5 mg PO Q6H PRN pain 3 days #12 03/12/25 Unknown Rx tabs prednisone 50 mg tablet 50 mg PO DAILY 5 days #5 tabs 03/12/25 Unknown Rx Allergy/AdvReac Type Severity Reaction Status Date / Time hydromorphone (From Dilaudid) Allergy Itching Verified 03/12/25 16:37 Social History Smoking Status: Current some day smoker tobacco type: cigarettes EXAM Physical Exam Const Vital Signs: 03/12/25 16:34 Temperature 97.6 F L Temperature Source Temporal Pulse Rate 84 Respiratory Rate 18 Blood Pressure 139/85 H Blood Pressure Mean 103 Pulse Ox 99 MDM MDM MDM Narrative Medical decision making narrative: HISTORY OF PRESENT ILLNESS: Chief complaint: Back pain 49-year-old female history of type 2 diabetes, hypertension, chronic back pain presents with left lower back pain that shoots down to her left leg. Also reports a pop in her calf a few days ago. Denies falls. Denies car accidents. Notes history of chronic back pain. Notes frequest flares. No inciting event noted. No heavy lifting. No urinary complaints. Patient denies any saddle anesthesia, urinary retention, bowel or bladder incontinence, lower extremity weakness, fever or IV drug use, no recent spinal manipulation or surgery, no recent urinary catheterization. REVIEW OF SYSTEMS: Pertinent positives: Back pain Pertinent negatives: PHYSICAL EXAM: Nursing triage notes reviewed, Vital signs reviewed Constitutional: please see mdm HENT: MMM Eyes: Pupils equal round and reactive to light, Extraocular muscles intact Neck: No stridor, no JVD, full neck ROM Lungs: Clear to auscultation, No wheezing or rales. No increased work of breathing, no conversational dyspnea, no accessory muscle use, no nasal flaring. No respiratory distress noted Heart: Regular rate and rhythm, No murmurs, No rubs and No gallops, 2+ distal pulses (radial, femoral, posterior tibial) in all extremities Abdomen: Soft, there is no tenderness, rigidity, rebound or guarding, no obvious peritoneal signs, no palpable pulsatile abdominal masses, no auscultated abdominal bruit Back: TTP over left lateral lumbar musculature, no midline step-offs or deformities. No rashes. : No CVAT Extremities: No edema Neuro: No new focal neurological deficits, cranial nerves II through XII intact, 5/5 strength in all present extremities. Intact sensation to light touch in all present extremities, 2+ reflexes bilateral patella tendons. Skin: No rash or lesions noted MEDICAL DECISION MAKING: Chief Complaint: please see HPI External records reviewed: Reviewed prior imaging studies: Recent adVanced imaging of the back. Factors affecting care: Social determinants of health: none History obtained from others: none Consults: none [facility] Narrative: The patient was initially hemodynamically stable, afebrile and nontoxic-appearing. Exam with TTP over lateral lumbar musculature. No midline step-offs deformities. No rashes. No CVA tenderness. I considered the following differential diagnosis: Musculoskeletal back pain, space-occupying lesion the spine, nephrolithiasis, pyelonephritis Initially gave oral medicines including Tylenol, anti-inflammatories, less relaxers, narcotics and steroids. The patient's history and physical exam is most consistent with lumbar radiculopathy/sciatica. It is not consistent with a space-occupying lesion of the spine pyelonephritis or nephrolithiasis The patient and/or family, caregivers express understanding. The patient and/or family, caregivers agrees with the plan. Shared decision making: I will have a discussion with the patient and or visitors regarding risk/benefits of further testing or admission. They will be made aware of of the risk/benefits inherent in this decision they will be given the opportunity to voice understanding. Total critical care time today provided was at least 0 [] minutes. This excludes separately billable procedures. Critical care time (if documented) is secondary to the patient having high probability of clinically significant/life threatening deterioration in the patient's condition which required my urgent intervention. Impression: 1. Acute on chronic back pain 2. Sciatica Dispo: Discharge home This note was generated with [employer] dictation software. It may contain incorrect words, spelling, and punctuation that were not noted in review of the chart prior to signing. Discharge Plan Triage Chief Complaint: Back ED Provider: Kiet Swanson Dx/Rx/DC Orders Instructions: ED Sciatica Prescriptions: New prednisone 50 mg tablet 50 mg PO DAILY 5 Days Qty: 5 0RF orphenadrine citrate 100 mg tablet extended release 100 mg PO BID Qty: 14 0RF oxycodone 5 mg tablet 5 mg PO Q6H PRN (Reason: pain) 3 Days Qty: 12 0RF No Action amoxicillin-pot clavulanate 875-125 mg tablet 1 tab PO BID Qty: 14 0RF clobetasol 0.05 % ointment 1 applic topical BID 14 Days Qty: 60 0RF cetirizine [Zyrtec] 10 mg tablet 10 mg PO DAILY Qty: 14 0RF gabapentin 100 mg capsule 100 mg PO BID PRN (Reason: nerve pain) Qty: 20 0RF Rx Instructions: Start with once a day for 2 to 3 days and then may increase to twice a day after that. cyclobenzaprine 5 mg tablet 5 mg PO TID PRN (Reason: muscle spasm) 3 Days Qty: 9 0RF Stand Alone Forms: ED Work / School Excuse Primary Care Provider: Care Physician,No Primary Referrals: Suman Hart MD [Med Staff - Active Staff, Orthopedics] Activity Restrictions/Additional Instructions: Thank you for trusting us with your care today! Your history and physical exam most consistent with sciatica. Please take Tylenol (2 pills, 650 mg), ibuprofen (2 pills, 400 mg) every 6 hours as needed for pain and fever control. Please discontinue taking Flexeril or Cyclobenzaprine. Please begin taking Norflex. Please take prednisone as prescribed Please take oxycodone for breakthrough pain with the above regimen is not effective. Please return to the emergency department if your symptoms change or worsen. Specifically if you notice bowel or bladder incontinence, urinary retention, loss of movement or sensation in your legs. Please follow with Orthopedic Spine Surgery for further outpatient evaluation and management. Print Language: Uruguayan Disposition Disposition: Home, Self Care
[2025-03-12] MEDS: Orphenadrine 100 MG Tablet PO (18:03)
--- OUTSIDE RECORDS SUMMARY | 2025-03-12 18:03 | XMS RPT_ITS | CCD ---
Demographics Address [address] [place] [address] Preferred Language en Marital Status Orthodox Affiliation Unknown Race White Ethnic Group Not or Lati no Author Organization [facility] Care Team Providers Care Merchandise Execution Leader Name Role Phone KALI MAZARIEGOS Attending Unavailable AYAD WHITT Primary Care Unavailable [place]~[id number] Attending Unavailable [place]~[id number] Attending Unavailable AYAD WHITT Primary Care Unavailable [place]~[id number] Primary Care Unavailable HEATHER SOTO Attending Unavailable [place]~[id number] Attending Unavailable [place]~[id number] Referring Unavailable AYAD WHITT Primary Care Unavailable [place]~[id number] Attending Unavailable [place]~[id number] Referring Unavailable PERI, AYAD Primary Care Unavailable DO Chago Edwards Palak Primary Care Provider MD Julianne Carroll Attending Provider DO Loc Dey Attending Provider [phone] DO Loc Dey Emergency Provider [phone] DO Álvaro Palomino Attending Provider DO Chago Edwards Primary Care Provider DO Solo Sanchez Emergency Provider Provider, ED Emergency Provider Unavailable MD Gus Dunn Attending Provider Edwards, DO Chago Palak Primary Care Provider DO Solo Sanchez Attending Provider DO Solo Sanchez Emergency Provider MD Memo Taylorf Attending Provider [phone] Provider, ED Emergency Provider Unavailable MD Gus Dunn Attending Provider MARCOS Espinosa Attending Provider [phone] MARCOS Espinosa Other Provider [phone] Nirmala, DO Mani Emergency Provider [phone] DO Álvaro Palomino Attending Provider AreyNADYA Attending Provider AreyNADYA Emergency Provider Nirmala DO Mani Emergency Provider DO Burt Blunt Attending Provider Shaunna Estevez Attending Provider Shaunna Estevez Other Provider DO Graham Baum Attending Provider [phone] DO Chago Edwards Primary Care Provider DO Solo Sanchez Attending Provider DO Solo Sanchez Emergency Provider [phone] MD Mathew Taylor Attending Provider [phone] MARCOS Espinosa Attending Provider [phone] MARCOS Espinosa Other Provider [phone] AreyNADYA Attending Provider AreyNADYA Emergency Provider DO Nirmala Mani Emergency Provider [phone] DO Burt Blunt Attending Provider DO Álvaro Palomino Attending Provider Shaunna Estevez Attending Provider [phone] Shaunna Estevez Other Provider DO Graham Baum Attending Provider [phone] Dittenhdilia, DO Roman Attending Provider NADYA Lema Attending Provider NADYA Lema Other Provider Gus Block Primary Care Provider Unavailabl e Daniel, DO Banda Attending Provider DO Solo Sanchez Emergency Provider Dittenhofer, DO Roman Other Provider [phone] DO Chago Edwards Primary Care Provider Roman Breaux Attending Unavailable Torey, Sagar Attending Unavailable Dittenhofer, Roman Consulting Unavailable Tree Reardon Attending Unavailable Dittenhofer, Roman Attending Unavailable Dittenhofer, Roman Consulting Unavailable Dittenhofer, Romna Attending Unavailable EiTamara hancock Attending Unavailable Cata Boss Attending Unavailable Dittenhofer, Roman Consulting Unavailable Dittenhofer, Roman Attending Unavailable Dittenhofer, Roman Attending Unavailable Dittenhofer, Roman Attending Unavailable Dittenhofer, Roman Consulting Unavailable Shaunna Estevez Attending Unavailable Nichelle Gil Attending Unavailable Eizman, Tamara Attending Unavailable Eizman, Tamara Consulting Unavailable Sagar Lema Attending Unavailable Torey, Sagar Consulting Unavailable Dittenhdilia, Roman Attending Unavailable Dittenhdilia, Roman Attending Unavailable Dittcas, Roman Attending Unavailable Shaunna Estevez Consulting Unavailable Graham Baum Attending Unavailable Burt Blunt Attending Unavailable Álvaro Palomino Attending Unavailable Care Physician, No Primary Primary Care Provider Unavailable Dr. Davis Webb DO Emergency Provider Dr. Davis Webb DO Attending Provider Dr. Kerry Rutherford DO Emergency Provider Carter Thomson MD Primary Care Provider [phone] Care Physician, No Primary Primary Care Physicia n Unavailable Dr. Kerry Rutherford DO Attending Physician Dr. Kerry Rutherford DO Emergency Department Physi bhargavi BERTO VIDITA Primary Care Physician Unavailab Ethan Jackson Attending Physician [phone] Ethan Nielson Referring Provider Care Physician, No Primary Primary Care Unava ilable Davis Webb Attending Unavailable Kerry Rutherford Attending Unavailable Care Physician, No Primary Primary Care Unava ilable Care Physician, No Primary Primary Care Unava ilable Michael Shah Attending UnavailNISHANT Shah Primary Care Unavailable Ethan Nielson Referring Unavailable Ethan Nielson Attending Unavailable CARTER THOMSON Primary Care Physician Unavailab Ethan Jackson Attending Physician Ethan Nielson Referring Provider [phone] Care Physician, No Primary Primary Care Physicia n Unavailable Pablo CARBAJAL, Dr. Rodriguez Attending Physician Dr. Michael [facility] FARHEEN EDWARDS Attending Unavailable THOMSON, VIDITA Primary Care Unavailable MAKI VELA Attending Unavailable THOMSON, VIDITA Primary Care Unavailable FARHEEN EDWARDS Attending Unavailable THOMSON, VIDITA Primary Care Unavailable FARHEEN EDWARDS Attending Unavailable THOMSON, VIDITA Primary Care Unavailable Carter Thomson MD Primary Care Provider [phone] Allergies Allergy Classification Reported Allergen(s) Allergy Type Date of Onset Reaction(s) Facility (20 sources) HYDROmorphone; Translations: [HYDROMORPHONE] Drug Allergy 12-17-2021 Rash [facility] Repository (20 sources) Sertraline; Translations: [SERTRALINE] Drug Allergy 09-27-2024 [facility] Repository Medications Current Medications Medication Drug Class(es) [...] mg / clavulanate 125 mg oral tablet (4 sources) Penicillin-class Antibacterial Start: 07-07-2024 atorvastatin 40 mg oral tablet (14 sources) HMG-CoA Reductase Inhibitor Start: 12-13-2024 End: 02-11-2025 take 1 tablet by mouth once daily atorvastatin (Lipitor) 40 MG tablet Indications: Steatosis of liver , Type 2 diabetes mellitus with hyperglycemia, without long-term current use of insulin (HCC) Take 1 tablet (40 mg) by mouth daily. 60 tablet 1 12/13/2024 Active Start: 12-13-2024 End: 12-13-2024 take 2 [...] TABLET ORAL DAILY June 02, 2022 12:00am Blood Glucose Monitoring Suppl (Blood Glucose Monitor System) w/Device kit (3 sources) Start: 02-07-2025 End: 02-07-[address]26 [address] Monitoring [address] (Blood Glucose Monitor System) w/Device kit Indications: Type 2 diabetes mellitus with hyperglycemia, without long-term current use of insulin (HCC) Use daily or as directed for monitoring of diabetes. 1 kit 02/07/2025 02/07/2026 Active cetirizine hydrochloride 10 mg oral tablet (11 sources) Histamine-1 Receptor Antagonist Start: 09-20-2024 take [...] Start: 06-02-2022 take 2000 [IU] by mo uth once daily Cholecalciferol (Vitamin D3) Active 2000 UNIT ORAL DAILY June 02, 2022 12:00am clobetasol propionate 0.0005 mg/mg topical ointment (3 sources) Corticosteroid Start: 09-20-2024 cloNIDine hydrochloride 0.1 [...] 28, 2020 11:00pm November 11, 2020 12:45pm cyclobenzaprine hydrochlorid e 5 mg oral tablet (7 sources) Muscle Relaxant Start: 01-19-2025 take 1 tablet by mouth three times daily as needed for muscle spasms Start: 01-03-2023 End: 05-10-2023 take 5 mg by mouth twice daily Cyclobenzaprine Discontinued 5 MG ORAL TWICE A DAY January 02, 2023 11:00pm May 10, 2023 9:07am 24 hr diclofenac sodium 100 mg extended [...] mg by mouth daily. 10/25/2024 Discontinued dulaglutide (Trulicity) 3 MG/0.5ML pen-injector (5 sources) Start: 02-05-2025 dulaglutide (Trulicity) 3 MG/0.5ML pen-injector Indications: Type 2 diabetes mellitus with hyperglycemia, without long-term current use of insulin (HCC) Inject 1 Pen (3 mg) under the skin 1 (one) time per week. 4 each 02/05/2025 Active empagliflozin 25 mg oral tablet (7 sources) Sodium-Glucose Cotransporter 2 Inhibitor Start: 06-02-2022 take 1 tablet by mouth once daily Empagliflozin (Jardiance) 25 mg tablet Active 25 MG ORAL DAILY June 02, 2022 12:00am will hold for 3 days and the day of procedure ergocalciferol 1.25 mg oral capsule (7 sources) Provitamin D2 Compound Start: 06-02-2022 take 09094 [IU] by mouth every week Ergocalciferol (Vitamin D2) Active 89176 UNIT ORAL WEEKLY June 02, 2022 12:00am Start: 06-02-2022 take 11441 [IU] by mouth once Ergocalciferol (Vitamin D2) Active 90053 UNIT ORAL MO June 02, 2022 12:00am gabapentin 100 mg oral capsule (3 sources) Anti-epileptic Agent Start: 09-20-2024 isopropyl alcohol 0.7 ml/ml medicated pad (20 sources) Start: 12-13-2024 alcohol prep p ads Indications: Type 2 diabetes mellitus with hyperglycemia, without long-term current use of insulin (HCC) Use daily to clean area before checking blood sugars 100 each 3 12/13/2024 Active Alcohol Swabs 70 % pads three times daily. Active lidocaine 0.05 mg/mg medicated patch (3 sources) Antiarrhythmic, Amide Local Anesthetic Start: 02-07-2025 End: 04-08-2025 apply 1 dose transdermal route once daily lidocaine (Lidoderm) 5 % patch Indications: Strain of lumbar region, subsequent encounter Apply 1 patch topically daily. Apply to painful area 12 hours per day, remove for 12 hours. 30 patch 1 02/07/2025 04/08/2025 Active modified 24 hr metFORMIN hydrochloride 500 [...] Discontinued (Reorder) nicotine 2 mg chewing gum (20 sources) Cholinergic Nicotinic Agonist Start: 12-13-2024 End: 04-12-2025 nicotine (Nicoderm, Step 1) 21 MG/24HR patch Indications: Smoking history Place 1 patch on the skin Every 24 hours. 30 patch 3 12/13/2024 04/12/2025 Active Start: 12-13-2024 End: 01-12-2025 nicotine polacrilex (Nicoret te) 2 MG gum Indications: Smoking history Chew 1 each (2 mg) every 3 hours as needed for smoking cessation. 100 each 12/13/2024 Active omeprazole 20 mg delayed release oral capsule (20 sources) Proton Pump Inhibitor Start: 12-13-2024 End: 02-07-2025 take 1 capsule by mouth twice daily before mealtime omeprazole (PriLOSEC) [address] capsule Take 1 capsule (20 mg) by mouth 2 times daily (before meals). Do not crush or chew. 60 capsule 3 02/07/2025 Active Start: 12-10-2024 End: 12-13-2024 take 1 [...] 2020 11:00pm pioglitazone 15 mg oral tablet (20 sources) Peroxisome Proliferator Receptor alpha Agonist, Peroxisome Proliferator Receptor gamma Agonist, Thiazolidinedione Start: 09-29-2024 End: 01-24-2025 take 1 tablet by mouth once daily pioglitazone (Actos) 15 MG tablet Take 1 tablet (15 mg) by mouth daily. 60 tablet 1 01/24/2025 Active tiZANidine 4 mg oral tablet (3 sources) Central alpha-2 Adrenergic Agonist Start: 02-07-2025 End: 02-17-2025 take 1 tablet by mouth every six hours as needed for muscle spasms tiZANidine (Zanaflex) 4 MG tablet Indications: Strain of lumbar region, subsequent encounter Take 1 tablet (4 mg) by mouth every 6 hours as needed for muscle spasms for up to 10 days. 30 tablet 02/07/2025 02/17/2025 Active Completed/Discontinued Medications Medication Drug Class(es) Dates [...] 21, 2020 11:00pm June 02, 2022 9:05pm dulaglutide (20 sources) GLP-1 Receptor Agonist Start: 12-13-2024 End: 02-05-2025 inject 3 mg by subcutaneous injection every week dulaglutide (Trulicity) 3 MG/0.5ML Indications: Type 2 diabetes mellitus with hyperglycemia, without long-term current use of insulin (HCC) Inject 3 mg under the skin 1 (one) time per week. 4 each 1 12/13/2024 02/05/2025 Discontinued (Reorder) Start: 12-13-2024 inject 3 mg by subcu taneous injection every week dulaglutide (Trulicity) 3 MG/0.5ML [...] 2022 12:00am will hold for 7 days fluconazole 150 mg oral tablet (11 sources) Azole Antifungal Start: 03-26-2023 End: 04-10-2023 Fluconazole Discontinued 150 MG ORAL Q3D 2 March 26, 2023 12:00am April 10, 2023 4:23pm may repeat second dose 72 hrs after first dose if symptoms persist Start: 10-22-2020 End: 11-11-2020 Fluconazole (Diflucan) 150 m g tablet Discontinued 150 MG ORAL Q3D 2 October 21, 2020 11:00pm November 11, 2020 [...] services in other specified circumstances] 09-29-2024 Episodic Cardiac dysrhythmias (6 sources) Palpitations; Translations: [Palpitations] 02-09-2025 Episodic Diabetes mellitus with complications (20 sources) Hyperglycemia due to type 2 diabetes mellitus; Translations: [Type 2 diabetes mellitus with hyperglycemia] Onset: 09-27-2024 11-12-2020 Chronic Diseases of mouth; excluding dental (4 sources) Salivary gland finding; Translations: [Other diseases of salivary glands] 07-07-2024 Episodic Disorders of lipid metabolism (5 sources) Hypercholesterolemi a; Translations: [Pure hypercholesterolemi a, unspecified] Onset: 02-07-2025 02-07-2025 Chronic Diverticulosis and diverticulitis (20 sources) Diverticular disease; [...] Translations: [Chest pain, unspecified] 11-13-2020 Episodic Other aftercare (3 sources) Encounter for therapeutic drug level monitoring; Translations: [Encounter for therapeutic drug level monitoring] Onset: 05-29-2020 Episodic Other and unspecified benign neoplasm (2 sources) Polyp of colon; Translations: [Benign neoplasm of colon] Onset: 06-06-2023 06-06-2023 Episodic Other ear and sense organ disorders (4 sources) Disorder of left external ear; Translations: [...] 10-11-2024 Chronic Other inflammatory condition of skin (20 sources) Lichen planus; Translations: [Lichen planus, unspecified] Onset: 12-15-2024 10-11-2024 Episodic Other inflammatory condition of skin (1 source) Other lichen planus; Translations: [Other lichen planus] Onset: 12-23-2024 Episodic Other liver diseases (20 sources) Steatosis [...] Chronic Other nutritional; endocrine; and metabolic disorders (3 sources) H/O: diabetes mellitus; Translations: [Personal history [...] of nicotine dependence] Onset: 12-13-2024 12-13-2024 Episodic Sprains and strains (5 sources) Low back strain; Translations: [Strain of muscle, fascia and tendon of lower back, subsequent encounter] Onset: 02-07-2025 02-07-2025 Episodic Substance-related disorders (20 sources) Other psychoactive substance dependence, uncomplicated; Translations: [Smoker] Onset: 05-29-2020 09-29-2024 Chronic Unclassified (2 sources) Low back pain, unspecified; Translations: [Low back pain, unspecified] Onset: 01-03-2023 Unclassified (1 source) Obesity, class 3 ([facility]); Translations: [Obesity, class 3 ([facility])] Onset: 10-11-2024 Past or Other Problems Problem Classification Problem Date Documented Da te Episodic/Chronic Abdominal pain (20 sources) Abdominal pain; Translations: [Unspecified abdominal pain] Onset: 03-14-2023 03-16-2023 Episodic Allergic reactions (20 sources) Inflammatory dermatosis; Translations: [Dermatitis, unspecified] Onset: 09-27-2024 09-20-2024 Episodic Coma; stupor; and brain damage (20 sources) Somnolence; Translations: [Hypersomnia, unspecified] Onset: 09-27-2024 Episodic Genitourinary symptoms and ill-defined conditions (20 sources) Dysuria; Translations: [Dysuria] Onset: 01-03-2023 03-26-2023 Episodic Hypertension with complications and secondary hypertension (20 sources) Hypertensive emergency; Translations: [Hypertensive emergency] Onset: 09-27-2024 Resolved: 12-15-2024 11-11-2020 Chronic Malaise and fatigue (20 sources) Other fatigue; Translations: [Other malaise and fatigue] Onset: 09-27-2024 Episodic Nausea and vomiting (1 source) Nausea with vomiting, unspecified; Translations: [Nausea with vomiting, unspecified] Onset: 01-05-2023 Episodic Other and unspecified benign neoplasm (20 sources) Hyperplastic polyp of large intestine; Translations: [Polyp of colon] Onset: 06-06-2023 06-06-2023 Episodic Other ear and sense organ disorders (1 source) Otalgia, left ear; Translations: [Otalgia, left ear] Onset: 07-11-2024 Episodic Other gastrointestinal disorders (20 sources) Stool DNA-based colorectal cancer screening positive; Translations: [Other fecal abnormalities] Onset: 03-14-2023 03-16-2023 Episodic Other hematologic conditions (20 sources) Raised cardiac enzyme or marker; Translations: [Other specified abnormalities of plasma proteins] Onset: 09-27-2024 11-11-2020 Episodic Other inflammatory condition of skin (2 sources) Lichen planus, unspecified; Translations: [Lichen planus, unspecified] Onset: 10-11-2024 Episodic Other liver diseases (6 sources) Measurement finding above reference range; Translations: [Abnormal levels of other serum enzymes] Onset: 09-27-2024 09-27-2024 Episodic Other skin disorders (20 sources) Eruption; Translations: [Rash and other nonspecific skin eruption] Onset: 09-25-2024 09-27-2024 Episodic Other skin disorders (3 sources) Rash and other nonspecific skin eruption; Translations: [Rash and other nonspecific skin eruption] Onset: 09-25-2024 Episodic Spondylosis; intervertebral disc disorders; other back problems (20 sources) Low back pain; Translations: [Chronic lumbosacral pain] Onset: 01-03-2023 01-03-2023 Episodic Unclassified (1 source) Obesity, class 3 (HCC); Translations: [Obesity, class 3 (HCC)] Onset: 10-11-2024 Urinary tract infections (20 sources) Acute cystitis with hematuria; Translations: [Acute cystitis] Onset: 03-26-2023 03-26-2023 Episodic Results Test Name Value Interpretation Reference Range Facility 36on 02-12-2025 36 Your patient has bee n scheduled for her Extended Holter Monitor on 04/15/25 at [facility] If testing requires an insurance authorization, the authorization must be in place 72 hours prior to the scheduled test or testing will be cancelled. Thank you, Central Scheduling [facility] 36 We have been unable to reach your patient to schedule their testing. Test Name: Cardiac holter monitor (3-7 days) 1st Attempt: 02/09/25 Sent [employer] message 2nd Attempt: 02/12/25 pt states she will call back in as soon as gets transportation [facility] Progress Noteon 02-09-2025 Progress Note -A1c 6.9% today. Continue Trulicity and metformin. Can consider increasing Trulicity at next visit. [facility] 36on 02-07-2025 36 Last office visit: 12/13/24 Next office visit: 02/07/25 [facility] HbA1c (Bld) [Mass fraction]o n 02-07-2025 Interpretation and review of laboratory results Abnormal [facility] Laboratory - Hematology and Cell countson 02-07-2025 HbA1c (Bld) [Mass fraction] 6.9 % Abnormal - 5.7 % [facility] Office Visiton 02-07-2025 Follow-up visit [id number] Amy Naidu 1975 F Date Provider Department Center 02/07/2025 [id number] THOMSON [facility] None Chart Close Cosign Accepted by: FARHEEN EDWARDS[[email or web address]] Chart Close Cosign Accepted on: MonFeb 11, 2025 11:22 AM Family History Problem Relation Age of Onset Arthritis Mother Hypertension Mother Diabetes Father Hypertension Father Family Status - Relation Status Age at Mother Father Level of Service:[id number] [place] OFFICE/OUTPATIENT ESTABLISHED LOW MDM 20 MIN Reason for Visit and Comments: Diabetes [34] - Diabetes follow up, A1c Back Pain [12] - Pt was in ER on 01/24/2025 for sciatica pain [facility] Progress Noteon 02-07-2025 Progress Note INDIRECT SUPERVISION THIS SERVICE IS [...] with the resident's assessment and treatment plan. [facility] Progress Note Pt asked if they hav e been to specialist,been in ER /hospitalized or had testing since last visit. YES, ER 01/24/25 Patient was able to ambulate safely to the examination room. Provider was not notified of possible fall risk [facility] Progress Note [address] [facility] [address] Dept: [phone] Dept Loc: [phone] Visit type: Established patient Reason for Visit: Diabetes (Diabetes follow up, A1c) and Back Pain (Pt was in ER on 01/24/2025 for sciatica pain) Assessment and Plan 1. Type 2 diabetes mellitus with hyperglycemia, without long-term current use of insulin ([facility]) Assessment & Plan: -A1c 6.9% today. Continue Trulicity and metformin. Can consider increasing Trulicity at next visit. Orders: - AMB POC HEMOGLOBIN A1C - Lipid panel - Microalbumin / creatinine, urine ratio - Blood Glucose Monitoring Suppl (Blood Glucose Monitor System) w/Device kit; Use daily or as directed for monitoring of diabetes., Normal - glucose blood test strip; Test once a day, Normal - Lancets Thin misc; Testing once a day, Normal 2. Hypercholesteremia - Lipid panel 3. Therapeutic drug monitoring - Comprehensive metabolic panel 4. Strain of lumbar region, subsequent encounter - tiZANidine (Zanaflex) 4 MG tablet; Take 1 tablet (4 mg) by mouth every 6 hours as needed for muscle spasms for up to 10 days., Starting Mon02/07/2025, Until 02/17/2025 at 2359, Normal - lidocaine (Lidoderm) 5 % patch; Apply 1 patch topically daily. Apply to painful area 12 hours per day, remove for 12 hours., Starting Mon02/07/2025, Until Mon04/08/2025, Normal 5. Heart palpitations - Cardiac holter monitor (3-7 days) For her back pain, offered steroid injection at the site of tenderness but she defers at this time. She is agreeable to trying a different muscle relaxant, which she will take her first few doses before bed and understands they can cause drowsiness. She would like to continue trying stretches at home and will let us know if not improving over the next few weeks. Counseled on avoidance of all NSAIDs while taking PO diclofenac. She has been on diclofenac for some time now, which she takes for chronic back pain. Patient requesting letter that she can give to [facility]. Letter provided today. Patient was involved and agreeable in shared decision making. Follow up in about 4 weeks (around 03/07/2025) for back pain . Subjective HPI Amy Naidu is a 49 y.o. female patient that presents today for follow up. She reports compliance with all her medications including metformin and Trulicity and tolerating well. Continues to have intermittent heart flutter sensation that occur 2-3 times weekly and last less than 30 seconds. Typically occur when she is at rest. Denies associated symptoms of chest pain, dyspnea, light-headedness or vision changes. Symptoms are overall not too bothersome but has been noticing them for some time now. Back pain She reports new back pain that started 2-3 weeks ago. Pain starts on left mid-lower back and radiates down the back of her left leg. Denies any trauma or injuries to the area. Denies fevers, chills, bowel or bladder incontinence. She was seen in the [place] ED and discharged with cyclobenzaprine, which was not helpful. She has tried Tylenol, ibuprofen and ice which helped minimally. She has tried stretches and massaging the area, which did help some. Pain is bothersome and has been somewhat limiting her activity. Review of Systems Constitutional: Negative for chills and fever. Medications reviewed Medical history reviewed Allergies reviewed Objective BP 129/66 (BP Location: Left arm, Patient Position: Sitting, BP Cuff Size: Large adult) Pulse 78 Temp 36.5 ?C (97.7 ?F) (Temporal) Ht 5' 5 (1.651 m) Wt 238 lb (108 kg) LMP 01/07/2025 (Approximate) BMI 39.61 kg/m? Last 3 weights: Wt Readings from Last 3 Encounters: 02/07/25 238 lb (108 kg) 12/13/24 243 lb 8 oz (110 kg) 10/11/24 243 lb 6.4 oz (110 kg) Physical Exam Constitutional: General: She is not in acute distress. Appearance: She is not ill-appearing. Comments: Appears to be in mild discomfort from back pain Cardiovascular: Rate and Rhythm: Normal rate and regular rhythm. Pulses: Normal pulses. Heart sounds: Normal heart sounds. No murmur heard. Pulmonary: Effort: Pulmonary effort is normal. No respiratory distress. Breath sounds: Normal breath sounds. No wheezing. Abdominal: General: Bowel sounds are normal. There is no distension. Palpations: Abdomen is soft. Musculoskeletal: Comments: Area of point tenderness on left lower back. No spinal or paraspinal tenderness. Data Reviewed and Summarized Office Visit on 02/07/2025 Component Date Value Ref Range Status Hemoglobin A1C 02/07/2025 6.9 (A) <=5.7 % Final Carter Thomson MD [facility] 02/09/25 2:36 PM [facility] 36on 02-05-2025 36 Last office visit: 12/13/2024 Next office visit: 02/07/2025 [facility] 36on 01-24-2025 36 Last office visit: 12/13/2024 Next office visit: 02/07/2025 [facility] 36 Duplicate request [facility] Emergency Department Summary on 01-19-2025 Emergency Department Summary [facility] Medical Records Department [address] [place] [address] Emergency Department Summary 01/19/25 MR#: [id number] Acct: [id number] Name: AMY NAIDU Rep #: [id number] : 1975 49 From: Michael Shah DO PCP: Care Physician,No Primary Status:REG ER Location: ED HPI History of Present Illness Chief Complaint: Back Narrative Narrative: Chief complaint and HPI: 49-year-old female with past medical history of HTN presents for evaluation of left-sided lumbar back pain. Onset of symptoms several days ago. Described as aching. She denies any trauma or injury. Denies numbness, weakness, urinary retention, stool or urinary incontinence, saddle anesthesia, recent invasive manipulation of the spine, intravenous drug use, or fever. Review of systems: See HPI Medications: As listed on the chart Allergies: As listed on the chart PFSH: Per chart Vital signs: As listed on the chart. Reviewed. Physical exam: Gen: A O x3, NAD Head: Normocephalic, atraumatic Eyes: No sclera icterus, conjunctiva clear ENT: Moist mucous membranes Neck: Full range of motion, nontender CV: RRR, no murmurs Resp: Lungs CTA BL, no w/r/c GI: Abd soft, non-distended, non-tender, no r/r/g Musc: Full ROM, no deformity, no midline spinal tenderness, no bony step-off, no signs of trauma or infection, the paraspinal musculature on the left lumbar spine are tense-with palpation this recreates her pain, DP/PT pulses +2 bilaterally, no peripheral edema, compartments soft, normal capillary refill, strength +5/5 in all extremities, no saddle paresthesia Skin: Warm, dry Neuro: Alert, oriented, grossly intact, sensation intact Psych: Cooperative, appropriate mood and affect [facility] Medical History HTN (hypertension) Diabetes mellitus, [...] pain #20 0 09/20/24 Unknown Rx caps cyclobenzaprine 5 mg tablet 5 mg PO TID PRN muscle spasm 3 Unknown Rx days #9 tabs Allergy/AdvReac Type Severity Reaction Status Date / Time hydromorphone (From Dilaudid) Allergy Itching Verified 01/19/25 09:23 Social History Smoking Status: Current some day smoker tobacco type: cigarettes EXAM Physical Exam Const Vital Signs: 10/19/25 09:22 Temperature 98 F Temperature Source Oral Pulse Rate 82 Respiratory Rate 18 Blood Pressure 142/89 H Blood Pressure Mean 106 Pulse Ox 100 Oxygen Delivery Method Room Air MDM MDM MDM Narrative Medical decision making narrative: 49-year-old female with past medical history of HTN presents for evaluation of left-sided lumbar back pain. She denies any trauma or injury. There is nothing to suggest any infectious etiology. The patient is not an IV drug user. There is no neurologic findings to suggest an acute cauda equina syndrome, infectious etiology, or any acute radiculopathy. At this point I do not feel any emergent imaging such as x-rays or MRI are warranted. Patient symptoms will be treated with IM Toradol and Valium as a muscle relaxer. Suspect lumbar back spasm versus strain. On reevaluation, patient's pain has improved. She is comfortable discharging home. Will send her home with muscle relaxers as needed. Recommended ibuprofen and Tylenol. IcyHot, rest, heating pad as needed. Follow-up with primary care physician. She confirmed understand the plan. Patient discharged home. Impression: 1. Lumbar spasm Discharge Plan Triage Chief Complaint: Back ED Provider: Michael Shah Dx/Rx/DC Orders Clinical Impression: Back muscle spasm Instructions: ED Back Spasm, No Trauma Prescriptions: New cyclobenzaprine 5 mg tablet 5 mg PO TID PRN (Reason: muscle spasm) 3 Days Qty: 9 0RF No Action amoxicillin-pot clavulanate 875-125 mg tablet 1 tab PO BID Qty: 14 0RF clobetasol 0.05 % ointment 1 applic topical BID 14 Days Qty: 60 0RF cetirizine [Zyrtec] 10 mg tablet 10 mg PO DAILY Qty: 14 0RF gabapentin 100 mg capsule 100 mg PO BID PRN (Reason: nerve pain) Qty: 20 0RF Rx Instructions: Start with once a day for 2 to 3 days and then may increase to twice a day after that. Primary Care Provider: Care Physician,No Primary Referrals: Alexei Gutierrez MD [Med Staff - Active Staff, Family Practice] - 3-5 Days Activity Restrictions/Additio (more content not included)... Normal [facility] 36on 12-27-2024 36 Last office visit: 12/13/2024 Next office visit: 02/07/2025 [facility] 36on 12-23-2024 36 Last office visit: 12/13/24 Next office visit: 02/07/25 [facility] Progress Noteon 12-15-2024 Progress Note -BP elevated today. Patient has been taking metoprolol tartrate once daily. Will have her take this twice daily and plan to recheck BP at next visit. [facility] Progress Note -lovastatin not covered by insurance. Will switch to atorvastatin [facility] Progress Note -discussed smoking cessation. Agreeable to trying nicotine replacement products. Defers Chantix at this time [facility] Progress Note -ozempic was not covered. Increase Trulicity to 3 mg weekly. Recheck A1c at next visit. [facility] Progress Note -seen by dermatology . Has upcoming appointment. [facility] Office Visiton 12-13-2024 Follow-up visit [id number] Amy Naidu 1975 F Date Provider Department Center 12/13/2024 [id number] Chart Close Cosign Accepted by: MAKI VELA[JEDWARDS] Chart Close Cosign Accepted on: MonDec 16, 2024 9:25 AM Family History Problem Relation Age of Onset Arthritis Mother Hypertension Mother Diabetes Father Hypertension Father Family Status - Relation Status Age at Mother Father Level of Service:42275 [place] OFFICE/OUTPATIENT ESTABLISHED LOW MDM 20 MIN Reason for Visit and Comments: Follow-up [268183] - Dm, rash check up/dermatology, medications issues [facility] Progress Noteon 12-13-2024 Progress Note INDIRECT SUPERVISION THIS SERVICE IS [...] with the resident's assessment and treatment plan. [facility] Progress Note Pt asked if they hav e been to specialist,been in ER /hospitalized or had testing since last visit. Yes, [facility] and labs Patient was able to ambulate safely to the examination room. 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 She had an eye exam at [facility] recently. Hypertension She reports improvement in [...] Data Reviewed and Summarized Carter Thomson MD [facility] 12/15/24 4:48 PM [facility] 36on 12-09-2024 36 Last office visit: 10/11/24 Next office visit: 12/13/24 [facility] Hepatitis C Antibodyon 12-06 Hepatitis C Ab Non-Reactive Normal Nonreactive [facility] Comment on above: Result Comment: Reac tive: Presumptive evidence of antibodies to HCV. Follow CDC recommendations for supplemental testing. Non-Reactive: Antibodies to HCV were not detected; does not exclude the possibility of exposure to HCV Reactive Results are presumptive evidence of antibodies to HCV. Follow CDC recommendations for supplemental testing. Order confirmation testing: HCV Quant by PCR testing - HCVPCR #[id number] Non Reactive: < 0.8 Equivocal: >/= 0.8 to < 1.0 Reactive: >/= 1.0 The CDC requires that a reactive/equivocal HCV antibody result be sent out for confirmation. HCV Quant by PCR testing. Performed By: #### L 3890.6301 #### [facility] [address] [place], [address] Progress Noteon 11-20-2024 Progress Note PA request received from pt's pharmacy for Altoprev. PA initiated. [facility] 36on 11-18-2024 36 Last office visit: 10/11/24 Next office visit: 12/13/24 [facility] [id number] 11-04-2024 [id number] Called office and they are faxing consult over now. [facility] 36on 11-04-2024 36 Requested Prescriptions Signed Prescriptions Disp Refills lovastatin (Altoprev) 40 MG 24 hr tablet 90 tablet 1 Sig: Take 1 tablet (40 mg) by mouth Nightly. Do not crush, chew, or split. Authorizing Provider: PAUL MIRANDA Diagnosis: 1. Type 2 diabetes mellitus with hyperglycemia, without long-term current use of insulin (HCC) 2. Steatosis of liver Paul Miranda MD 12:45 PM 11/04/24 [facility] 36 Last office visit: 10/11/24 Next office visit: 12/13/24 [facility] 36on 10-25-2024 36 Last office visit: 10/11/2024 Next office visit: 12/13/2024 [facility] Progress Noteon 10-15-2024 Progress Note PA requested for Ozempic - PA initiated [facility] 37on 10-11-2024 37 [facility] Office Visiton 10-11-2024 Follow-up visit [id number] Amy Naidu 1975 F Date Provider Department Center 10/11/2024 [id number][facility] Chart Close Cosign Accepted by: MAURY DICKERSON[NFLICKINGER] Chart Close Cosign Accepted on: MonOct 21, 2024 4:38 PM Family History Problem Relation Age of Onset Arthritis Mother Hypertension Mother Diabetes Father Hypertension Father Family Status - Relation Status Age at Mother Father Level of Service:68474 [place] OFFICE/OUTPATIENT ESTABLISHED MOD MDM 30 MIN Reason for Visit and Comments: Follow-up [642381] - Follow up for blood pressure, rash, wants to discuss lead testing, and white rash on pt tongue [facility] Progress Noteon 10-11-2024 Progress Note [address] [address] Dept: [phone] Dept Loc: [phone] Visit type: Established patient Reason for Visit: [...] planus vs other. Her dermatology appointment within [facility] isn't scheduled until January. Will place an external referral where she can get a sooner appointment. Recently picked up prescription for Trulicity injections. Will place an order for Ozempic, which could be better for weight loss than Trulicity. 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 She does understand that she cannot take both injections at the same time. She will either picking crew supervisor the Ozempic OR continue Trulicity, then start [...] Data Reviewed and Summarized Carter Thomson MD [facility] 10/14/24 3:02 PM [facility] Progress Note I saw and evaluated the patient, participating in the laurent portions of the service. I reviewed the resident?s note. I agree with the resident?s findings and plan. Lesions in mouth and skin most consistent with lichen planus Maury Dickerson MD [facility] Progress Note Pt asked if they hav e been to specialist,been in ER /hospitalized or had testing since last visit. NO Patient was able to ambulate safely to the examination room. Provider was not notified of possible fall risk PT IS ACCOMPANIED BY HER PARTNER TO TODAY'S VISIT. Normal [facility] Progress Noteon 09-29-2024 Progress Note -A1c 6.7% today. At goal. Continue current medications Normal [facility] Progress Note -Recommend cutting down on smoking, offered Chantix or Wellbutrin. Patient defers Chantix or Wellbutrin at this time. She has tried nicotine replacement products in the past which she states were not helpful. Normal [facility] Progress Note -Continue amlodipine 10 mg -Increase [...] clonidine if this becomes a concern. Normal [facility] 37on 09-27-2024 37 Take metoprolol twic e a day Normal [facility] HbA1c (Bld) [Mass fraction]o n 09-27-2024 Interpretation and review of laboratory results Abnormal [facility] Laboratory - Hematology and Cell countson 09-27-2024 HbA1c (Bld) [Mass fraction] 6.7 % Abnormal - 5.7 % [facility] Office Visiton 09-27-2024 Follow-up visit [id number] Amy Naidu 1975 F Date Provider Department Center 09/27/2024 [id number][facility] None Chart Close Cosign Required by: Farheen Edwards DO[DABREAUJ] Family History Problem Relation Age of Onset Arthritis Mother Hypertension Mother Diabetes Father Hypertension Father Family Status - Relation Status Age at Mother Father Level of Service:39564 [place] OFFICE/OUTPATIENT NEW LOW MDM 30 MINUTES Reason for Visit and Comments: New Patient [542] - Establish care, Htn and DM2 Normal [facility] Progress Noteon 09-27-2024 Progress Note [facility] [place] [address] [address] [facility] [address] Dept: [phone] Dept Loc: [phone] Visit type: New patient Reason for Visit: New Patient (Establish care, Htn and DM2) Assessment and Plan 1. Encounter to establish care with new doctor 2. Type 2 diabetes mellitus with hyperglycemia, without long-term current use of insulin ([facility]) Assessment & Plan: -A1c 6.7% today. At goal. Continue current medications Orders: - AMB POC HEMOGLOBIN A1C 3. Skin rash - [facility] 4. Essential hypertension Assessment & Plan: [...] stops taking the clonidine. Subjective HPI Amy Naiud is a 49 y.o. female patient that presents today to critical access hospital care. History of type 2 diabetes She [...] C-sections. Breast reduction surgery. 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 Findi (more content not included)... Normal [facility] Progress Note INDIRECT SUPERVISION THIS SERVICE IS [...] with the resident's assessment and treatment plan. Normal [facility] Progress Note Patient was able to ambulate safely to the examination room. Provider was not notified of possible fall risk Pt asked if they have been to specialist,been in ER /hospitalized or had testing since last visit. Rash 09/20/24 [facility] Absolute lymphocyte countOrd ered By: Kerry Rutherford on 09-20-2024 Lymphocytes Auto (Unsp spec) [#/Vol] 2.15 10*3/uL 0.83-4.51 [facility] Absolute neutrophil countOrd ered By: Kerry Rutherford on 09-20-2024 Neutrophils (Bld) [#/Vol] 5.8 10*3/uL 2.0-7.7 [facility] Anion gap in Serum or Plasma Ordered By: Kerry Rutherford on 09-20-2024 Anion gap [Moles/Vol] 11 mmol/L 5-15 [facility] Automated lymphocyte count a s percentage of total leukocytesOrdered By: Kerry Rutherford on 09-20-2024 Lymphocytes/100 WBC Auto (Unsp spec) 24.7 % - [facility] BUN/creatinine ratioOrdered By: Kerry Rutherford on 09-20-2024 Urea nitrogen/Creatinine [Mass ratio] 21.1 mg/mg High - [facility] Basophil percentageOrdered B y: Kerry Rutherford on 09-20-2024 Basophils/100 WBC (Bld) 0.5 % 0-[address] [facility] Bilirubin, totalOrdered By: Kerry Rutherford on 09-20-2024 Bilirubin [Mass/Vol] 0.31 mg/dL 0.00-1.30 [facility] CBC W/Diff, Automatedon 09-02 Absolute Lymph 2.15 X10 3/uL Normal 0.83-4.51 [facility] Comment on above: Performed By: #### L 509.8002, L500.4050, L100.0100 #### [facility] [address] [place], [address] Absolute Neut 5.8 X10 3/uL Normal 2.0-7.7 [facility] Comment on above: Performed By: #### L 509.8002, L500.4050, L100.0100 #### [facility] [address] [place], [address] Basophils/100 WBC (Bld) 0.5 % Normal 0-[address] [facility] Comment on above: Performed By: #### L 509.8002, L500.4050, L100.0100 #### [facility] [address] [place], [address] Eosinophils/100 WBC (Bld) 1.1 % Normal 0-5 [facility] Comment on above: Performed By: #### L 509.8002, L500.4050, L100.0100 #### [facility] [address] [place], [address] Erythrocyte distribution width (RBC) [Ratio] 15.7 % High 11.6-14.6 [facility] Comment on above: Performed By: #### L 509.8002, L500.4050, L100.0100 #### [facility] [address] [place], [address] Hematocrit (Bld) [Volume fraction] 38.9 % Normal 37-47 [facility] Comment on above: Performed By: #### L 509.8002, L500.4050, L100.0100 #### [facility] [address] [place], [address] Hemoglobin (Bld) [Mass/Vol] 12.6 g/dL Normal 12.0-15.0 [facility] Comment on above: Performed By: #### L 509.8002, L500.4050, L100.0100 #### [facility] [address] [place], [address] IG% 0.200 Normal 0.0-0.9 [facility] Comment on above: Result Comment: IG% - Immature Granulocytes (promyelocytes, myelocytes and metamyelocytes) > 1% indicates that a LEFT SHIFT is Present. Performed By: #### L 509.8002, L500.4050, L100.0100 #### [facility] [address] [place], [address] Lymphocytes/100 WBC (Bld) 24.7 % Normal 19-41 [facility] Comment on above: Performed By: #### L 509.8002, L500.4050, L100.0100 #### [facility] [address] [place], [address] MCH (RBC) [Entitic mass] 28.6 pg Normal 27.0-32.0 [facility] Comment on above: Performed By: #### L 509.8002, L500.4050, L100.0100 #### [facility] [address] [place], [address] MCHC (RBC) [Mass/Vol] 32.4 g/dL Normal 32-36 [facility] Comment on above: Performed By: #### L 509.8002, L500.4050, L100.0100 #### [facility] [address] [place], [address] MCV (RBC) [Entitic vol] 88.2 fL Normal 81-[address] [facility] Comment on above: Performed By: #### L 509.8002, L500.4050, L100.0100 #### [facility] [address] [place], [address] Monocytes/100 WBC (Bld) 7.3 % Normal 0-[address] [facility] Comment on above: Performed By: #### L 509.8002, L500.4050, L100.0100 #### [facility] [address] [place], [address] Neutrophils/100 WBC (Bld) 66.2 % Normal 47-70 [facility] Comment on above: Performed By: #### L 509.8002, L500.4050, L100.0100 #### [facility] [address] [place], [address] Nucleated RBC (Bld) [#/Vol] 0 10*3/uL Normal 0-5 [facility] Comment on above: Performed By: #### L 509.8002, L500.4050, L100.0100 #### [facility] [address] [place], [address] Platelet mean volume (Bld) [Entitic vol] 12.2 fL High 6.2-12.0 [facility] Comment on above: Performed By: #### L 509.8002, L500.4050, L100.0100 #### [facility] [address] [place], [address] Platelets (Bld) [#/Vol] 270 10*3/uL Normal 150-450 [facility] Comment on above: Performed By: #### L 509.8002, L500.4050, L100.0100 #### [facility] [address] [place], [address] RBC (Bld) [#/Vol] 4.41 10*6/uL Normal 4.2-5.4 [facility] Comment on above: Performed By: #### L 509.8002, L500.4050, L100.0100 #### [facility] [address] [place], [address] RDW SD 50.8 fl High 35.1-43.9 [facility] Comment on above: Performed By: #### L 509.8002, L500.4050, L100.0100 #### [facility] [address] [place], [address] WBC (Bld) [#/Vol] 8.7 10*3/uL Normal 4.4-11.0 [facility] Comment on above: Performed By: #### L 509.8002, L500.4050, L100.0100 #### [facility] [address] [place], [address] Carbon dioxide, total [Moles /volume] in Central venous bloodOrdered By: Kerry Rutherford on 09-20-2024 CO2 [Moles/Vol] 23.5 mmol/L 21.0-32.0 [facility] Chloride assayOrdered By: Bereket Rutherford on 09-20-2024 Chloride [Moles/Vol] 107 mmol/L 98-108 [facility] Comprehensive Metabolic Prof ilon 09-20-2024 Albumin [Mass/Vol] 4.0 g/dL Normal 3.5-5.0 [facility] Comment on above: Performed By: #### L 509.8002, L500.4050, L100.0100 #### [facility] [address] [place], [address] Albumin/Globulin [Mass ratio] 1.3 {ratio} Normal 0.9-2.4 [facility] Comment on above: Performed By: #### L 509.8002, L500.4050, L100.0100 #### [facility] [address] [place], [address] ALK PHOS 95 U/L Normal 35-104 [facility] Comment on above: Performed By: #### L 509.8002, L500.4050, L100.0100 #### [facility] [address] [place], [address] ALT [Catalytic activity/Vol] 60 U/L High <=34 [facility] Comment on above: Performed By: #### L 509.8002, L500.4050, L100.0100 #### [facility] [address] [place], [address] AST [Catalytic activity/Vol] 35 U/L High <=31 [facility] Comment on above: Performed By: #### L 509.8002, L500.4050, L100.0100 #### [facility] [address] [place], [address] Bilirubin [Mass/Vol] 0.31 mg/dL Normal 0.00-1.30 [facility] Comment on above: Performed By: #### L 509.8002, L500.4050, L100.0100 #### [facility] [address] [place], [address] BUN/CRE 21.1 RATIO High 10-20 [facility] Comment on above: Performed By: #### L 509.8002, L500.4050, L100.0100 #### [facility] [address] [place], [address] Calcium [Mass/Vol] 9.0 mg/dL Normal 7.6-11.0 [facility] Comment on above: Performed By: #### L 509.8002, L500.4050, L100.0100 #### [facility] [address] [place], [address] Chloride [Moles/Vol] 107 mmol/L Normal 98-108 [facility] Comment on above: Performed By: #### L 509.8002, L500.4050, L100.0100 #### [facility] [address] [place], [address] CO2 [Moles/Vol] 23.5 mmol/L Normal 21.0-32.0 [facility] Comment on above: Performed By: #### L 509.8002, L500.4050, L100.0100 #### [facility] [address] [place], [address] Creatinine [Mass/Vol] 0.82 mg/dL Normal 0.70-1.20 [facility] Comment on above: Performed By: #### L 509.8002, L500.4050, L100.0100 #### [facility] [address] [place], [address] ECRCL 105.67 ml/min Normal 50-250 [facility] Comment on above: Performed By: #### L 509.8002, L500.4050, L100.0100 #### [facility] [address] [place], [address] GAP 11 Normal 5-15 [facility] Comment on above: Performed By: #### L 509.8002, L500.4050, L100.0100 #### [facility] [address] [place], [address] GFR/1.73 sq M.predicted among non-blacks MDRD (S/P/Bld) [Vol rate/Area] 89 mL/min/{1.73_m2} Normal >60 [facility] Comment on above: Result Comment: mL/m in/1.73m2 CKD-EPI Creatinine Equation (2020) Performed By: #### L 509.8002, L500.4050, L100.0100 #### [facility] [address] [place], [address] Globulin (S) [Mass/Vol] 3.0 g/dL Normal 2.2-4.2 [facility] Comment on above: Performed By: #### L 509.8002, L500.4050, L100.0100 #### [facility] [address] [place], [address] Glucose [Mass/Vol] 158 mg/dL High 70-99 [facility] Comment on above: Performed By: #### L 509.8002, L500.4050, L100.0100 #### [facility] [address] [place], [address] Potassium [Moles/Vol] 4.0 mmol/L Normal 3.3-5.1 [facility] Comment on above: Performed By: #### L 509.8002, L500.4050, L100.0100 #### [facility] [address] [place], [address] Sodium [Moles/Vol] 141 mmol/L Normal 133-145 [facility] Comment on above: Performed By: #### L 509.8002, L500.4050, L100.0100 #### [facility] [address] [place], [address] T PROT 7.0 g/dL Normal 5.9-8.4 [facility] Comment on above: Performed By: #### L 509.8002, L500.4050, L100.0100 #### [facility] [address] [place], [address] Urea nitrogen [Mass/Vol] 17 mg/dL Normal 4-19 [facility] Comment on above: Performed By: #### L 509.8002, L500.4050, L100.0100 #### [facility] [address] [place], [address] Emergency Department Summary on 09-20-2024 Emergency Department Summary [facility] Medical Records Department [address] [place] [address] Emergency Department Summary 09/20/24 MR#: [id number] Acct: [id number] Name: AMY NAIDU Rep #: [id number] : 1975 49 From: Kerry Rutherford DO [...] a course of Augmentin at that time. [facility] Medical History HTN (hypertension) Diabetes mellitus, [...] throughout the (more content not included)... Normal [facility] Eosinophil percentageOrdered By: Kerry Rutherford on 09-20-2024 Eosinophils/100 WBC (Bld) 1.1 % 0-5 [facility] Erythrocyte distribution wid th ratioOrdered By: Kerry Rutherford on 09-20-2024 Erythrocyte distribution width (RBC) [Ratio] 15.7 % High 11.6-14.6 [facility] Erythrocyte distribution wid th standard deviationOrdered By: Kerry Rutherford on 09-20-2024 Erythrocyte distribution width (RBC) [Ratio] 50.8 fl High 35.1-43.9 [facility] Glomerular filtration rate ( GFR) estimation/1.73 sq m using serum, plasma, or whole bOrdered By: Kerry Rutherford on 09-20-2024 GFR/1.73 sq M.predicted among non-blacks MDRD (S/P/Bld) [Vol rate/Area] 89 mL/min/{1.73_m2} >60 [facility] Comment on above: mL/min/1.73m2 CKD-EP I Creatinine Equation (2020) Hematocrit Auto (Bld) [Volum e fraction]Ordered By: Kerry Rutherford on 09-20-2024 Hematocrit (Bld) [Volume fraction] 38.9 % 37-47 [facility] Hemoglobin measurementOrdere d By: Kerry Rutherford on 09-20-2024 Hemoglobin (Bld) [Mass/Vol] 12.6 g/dL 12.0-15.0 [facility] Immature granulocytes/100 WB C Auto (Bld)Ordered By: Kerry Rutherford on 09-20-2024 Immature granulocytes/100 WBC (Bld) 0.200 % 0.0-0.9 [facility] Comment on above: IG% - Immature Granu locytes (promyelocytes, myelocytes and metamyelocytes) > 1% indicates that a LEFT SHIFT is Present. Laboratory - Chemistry and C hemistry - challengeOrdered By: Kerry Rutherford on 09-20-2024 AST [Catalytic activity/Vol] 35 U/L High <32 [facility] MCV (mean corpuscular volume ) determinationOrdered By: Kerry Rutherford on 09-20-2024 MCV (RBC) [Entitic vol] 88.2 fL 81-[address] [facility] Mean corpuscular hemoglobin (MCH) determinationOrdered By: Kerry Rutherford 09-20-2024 MCH (RBC) [Entitic mass] 28.6 pg 27.0-32.0 [facility] Mean corpuscular hemoglobin concentration (MCHC) determinationOrdered By: Kerry Rutherford on 09-20-2024 MCHC (RBC) [Mass/Vol] 32.4 g/dL 32-36 [facility] Mean platelet volume determi nationOrdered By: Kerry Rutherford on 09-20-2024 Platelet mean volume (Bld) [Entitic vol] 12.2 fL High 6.2-12.0 [facility] Monocyte percentageOrdered B y: Kerry Rutherford on 09-20-2024 Monocytes/100 WBC (Bld) 7.3 % 0-[address] [facility] Neutrophil percentageOrdered By: Kerry Rutherford on 09-20-2024 Neutrophils/100 WBC (Bld) 66.2 % 47-70 [facility] Nucleated red blood cell per centageOrdered By: Kerry Rutherford on 09-20-2024 Nucleated RBC/100 WBC (Bld) [Ratio] 0 % 0-5 [facility] Platelet countOrdered By: Bereket Rutherford on 09-20-2024 Platelets (Bld) [#/Vol] 270 10*3/uL 150-450 [facility] Potassium measurement (mass/ volume)Ordered By: Kerry Rutherford on 09-20-2024 Potassium (Unsp spec) [Mass/Vol] 4.0 mmol/L 3.3-5.1 [facility] RBC Auto (Bld) [#/Vol]Ordere d By: Kerry Rutherford on 09-20-2024 RBC (Bld) [#/Vol] 4.41 10*6/uL 4.2-5.4 [facility] Serum creatinine measurement (mass/volume)Ordered By: Kerry Rutherford on 09-20-2024 Creatinine [Mass/Vol] 0.82 mg/dL 0.70-1.20 [facility] Serum globulin measurementOr dered By: Kerry Rutherford on 09-20-2024 Globulin (S) [Mass/Vol] 3.0 g/dL 2.2-4.[address] [facility] Serum glucose measurement (m ass/volume)Ordered By: Kerry Rutherford on 09-20-2024 Glucose [Mass/Vol] 158 mg/dL High 70-99 [facility] Serum or plasma alanine gonzalez otransferase (ALT) measurementOrdered By: Kerry Rutherford on 09-20-2024 ALT [Catalytic activity/Vol] 60 U/L High <35 [facility] Serum or plasma albumin lenny urement (mass/volume)Ordered By: Kerry Rutherford on 09-20-2024 Albumin [Mass/Vol] 4.0 g/dL 3.5-5.0 [facility] Serum or plasma albumin/glob ulin mass ratioOrdered By: Kerry Rutherford on 09-20-2024 Albumin/Globulin [Mass ratio] 1.3 {ratio} 0.9-2.4 [facility] Serum or plasma alkaline husam sphatase measurementOrdered By: Kerry Rutherford on 09-20-2024 ALP [Catalytic activity/Vol] 95 U/L 35-104 [facility] Serum or plasma calcium lenny urement (mass/volume)Ordered By: Kerry Rutherford on 09-20-2024 Calcium [Mass/Vol] 9.0 mg/dL 7.6-11.0 [facility] Serum or plasma urea nitroge n measurement (mass/volume)Ordered By: Kerry Rutherford on 09-20-2024 Urea nitrogen [Mass/Vol] 17 mg/dL 4-19 [facility] Sodium levelOrdered By: Bassam Rutherford on 09-20-2024 Sodium [Moles/Vol] 141 mmol/L 133-145 [facility] Syphilis Antibodieson 2024 Syphilis Abs Non-Reactive Normal Nonreactive [facility] Comment on above: Performed By: #### L 509.8002, L500.4050, L100.0100 #### [facility] [address] [place] [address], [address] Total proteinOrdered By: Randi Rutherford on 09-20-2024 Protein [Mass/Vol] 7.0 g/dL 5.9-8.4 [facility] White blood cell (WBC) count Ordered By: Kerry Rutherford on 09-20-2024 WBC (Bld) [#/Vol] 8.7 10*3/uL 4.4-11.0 [facility] Absolute lymphocyte countOrd ered By: Elmira Quijano on 07-07-2024 Lymphocytes Auto (Unsp spec) [#/Vol] 2.04 10*3/uL 0.83-4.51 [facility] Absolute neutrophil countOrd ered By: Elmira Quijano on 07-07-2024 Neutrophils (Bld) [#/Vol] 4.8 10*3/uL 2.0-7.7 [facility] Anion gap in Serum or Plasma Ordered By: Elmira Quijano on 07-07-2024 Anion gap [Moles/Vol] 10 mmol/L 5- [facility] Automated lymphocyte count a s percentage of total leukocytesOrdered By: Elmira Quijano on 07-07-2024 Lymphocytes/100 WBC Auto (Unsp spec) 27.0 % - [facility] BUN/creatinine ratioOrdered By: Elmira Quijano on 07-07-2024 Urea nitrogen/Creatinine [Mass ratio] 15.8 mg/mg 10- [facility] Basic Metabolic Profile (BMP )on 07-07-2024 BUN/CRE 15.8 RATIO Normal - [facility] Comment on above: Performed By: #### L 500.2500, L100.0100 #### [facility] [address] [place], [address] Calcium [Mass/Vol] 8.8 mg/dL Normal 7.6-11.0 [facility] Comment on above: Performed By: #### L 500.2500, L100.0100 #### [facility] [address] [place], [address] Chloride [Moles/Vol] 105 mmol/L Normal 98-108 [facility] Comment on above: Performed By: #### L 500.2500, L100.0100 #### [facility] [address] [place], [address] CO2 [Moles/Vol] 23.3 mmol/L Normal 21.0-32.0 [facility] Comment on above: Performed By: #### L 500.2500, L100.0100 #### [facility] [address] [place], [address] Creatinine [Mass/Vol] 0.77 mg/dL Normal 0.70-1.20 [facility] Comment on above: Performed By: #### L 500.2500, L100.0100 #### [facility] [address] [place], [address] ECRCL 113.47 ml/min Normal 50-250 [facility] Comment on above: Performed By: #### L 500.2500, L100.0100 #### [facility] [address] [place], [address] GAP 10 Normal 5-15 [facility] Comment on above: Performed By: #### L 500.2500, L100.0100 #### [facility] [address] [place], [address] GFR/1.73 sq M.predicted among non-blacks MDRD (S/P/Bld) [Vol rate/Area] 95 mL/min/{1.73_m2} Normal >60 [facility] Comment on above: Result Comment: mL/m in/1.73m2 CKD-EPI Creatinine Equation (2020) Performed By: #### L 500.2500, L100.0100 #### [facility] [address] [place], [address] Glucose [Mass/Vol] 187 mg/dL High 70-99 [facility] Comment on above: Performed By: #### L 500.2500, L100.0100 #### [facility] [address] [place], [address] Potassium [Moles/Vol] 4.1 mmol/L Normal 3.3-5.1 [facility] Comment on above: Performed By: #### L 500.2500, L100.0100 #### [facility] [address] [place], [address] Sodium [Moles/Vol] 138 mmol/L Normal 133-145 [facility] Comment on above: Performed By: #### L 500.2500, L100.0100 #### [facility] [address] [place], [address] Urea nitrogen [Mass/Vol] 12 mg/dL Normal 4-19 [facility] Comment on above: Performed By: #### L 500.2500, L100.0100 #### [facility] [address] [place], [address] Basophil percentageOrdered B y: Elmira Quijano on 07-07-2024 Basophils/100 WBC (Bld) 0.4 % 0-[address] [facility] CBC W/Diff, Automatedon Absolute Lymph 2.04 X10 3/uL Normal 0.83-4.51 [facility] Comment on above: Performed By: #### L 500.2500, L100.0100 #### [facility] [address] [place], [address] Absolute Neut 4.8 X10 3/uL Normal 2.0-7.7 [facility] Comment on above: Performed By: #### L 500.2500, L100.0100 #### [facility] [address] [place], [address] Basophils/100 WBC (Bld) 0.4 % Normal 0-[address] [facility] Comment on above: Performed By: #### L 500.2500, L100.0100 #### [facility] [address] [place], [address] Eosinophils/100 WBC (Bld) 1.5 % Normal 0-5 [facility] Comment on above: Performed By: #### L 500.2500, L100.0100 #### [facility] [address] [place], [address] Erythrocyte distribution width (RBC) [Ratio] 15.0 % High 11.6-14.6 [facility] Comment on above: Performed By: #### L 500.2500, L100.0100 #### [facility] [address] [place], [address] Hematocrit (Bld) [Volume fraction] 38.4 % Normal 37-47 [facility] Comment on above: Performed By: #### L 500.2500, L100.0100 #### [facility] [address] [place], [address] Hemoglobin (Bld) [Mass/Vol] 12.4 g/dL Normal 12.0-15.0 [facility] Comment on above: Performed By: #### L 500.2500, L100.0100 #### [facility] [address] [place], [address] IG% 0.400 Normal 0.0-0.9 [facility] Comment on above: Result Comment: IG% - Immature Granulocytes (promyelocytes, myelocytes and metamyelocytes) > 1% indicates that a LEFT SHIFT is Present. Performed By: #### L 500.2500, L100.0100 #### [facility] [address] [place], [address] Lymphocytes/100 WBC (Bld) 27.0 % Normal 19-41 [facility] Comment on above: Performed By: #### L 500.2500, L100.0100 #### [facility] [address] [place], [address] MCH (RBC) [Entitic mass] 29.0 pg Normal 27.0-32.0 [facility] Comment on above: Performed By: #### L 500.2500, L100.0100 #### [facility] [address] [place], [address] MCHC (RBC) [Mass/Vol] 32.3 g/dL Normal 32-36 [facility] Comment on above: Performed By: #### L 500.2500, L100.0100 #### [facility] [address] [place], [address] MCV (RBC) [Entitic vol] 89.7 fL Normal 81-[address] [facility] Comment on above: Performed By: #### L 500.2500, L100.0100 #### [facility] [address] [place], [address] Monocytes/100 WBC (Bld) 7.0 % Normal 0-10 [facility] Comment on above: Performed By: #### L 500.2500, L100.0100 #### [facility] [address] [place], [address] Neutrophils/100 WBC (Bld) 63.7 % Normal 47-70 [facility] Comment on above: Performed By: #### L 500.2500, L100.0100 #### [facility] [address] [place], [address] Nucleated RBC (Bld) [#/Vol] 0 10*3/uL Normal 0-5 [facility] Comment on above: Performed By: #### L 500.2500, L100.0100 #### [facility] [address] [place], [address] Platelet mean volume (Bld) [Entitic vol] 12.7 fL High 6.2-12.0 [facility] Comment on above: Performed By: #### L 500.2500, L100.0100 #### [facility] [address] [place], [address] Platelets (Bld) [#/Vol] 246 10*3/uL Normal 150-450 [facility] Comment on above: Performed By: #### L 500.2500, L100.0100 #### [facility] [address] [place], [address] RBC (Bld) [#/Vol] 4.28 10*6/uL Normal 4.2-5.4 [facility] Comment on above: Performed By: #### L 500.2500, L100.0100 #### [facility] [address] [place], [address] RDW SD 48.6 fl High 35.1-43.9 [facility] Comment on above: Performed By: #### L 500.2500, L100.0100 #### [facility] [address] [place], [address] WBC (Bld) [#/Vol] 7.6 10*3/uL Normal 4.4-11.0 [facility] Comment on above: Performed By: #### L 500.2500, L100.0100 #### [facility] [address] [place], [address] Carbon dioxide, total [Moles /volume] in Central venous bloodOrdered By: Elmira Quijano on 07-07-2024 CO2 [Moles/Vol] 23.3 mmol/L 21.0-32.0 [facility] Chloride assayOrdered By: Pratima Quijano on 07-07-2024 Chloride [Moles/Vol] 105 mmol/L 98-108 [facility] Emergency Department Summary on 07-07-2024 Emergency Department Summary [facility] Medical Records Department [address] [place] [address] Emergency Department Summary 07/07/24 MR#: [id number] Acct: [id number] Name: KENNY NAIDUZARA Robertson Rep #: [id number] : 1975 49 From: Elmira MCGUIRE PCP: [...] Labs: Laborat (more content not included)... Normal [facility] Eosinophil percentageOrdered By: Elmira Quijano on 07-07-2024 Eosinophils/100 WBC (Bld) 1.5 % 0-5 [facility] Erythrocyte distribution wid th (RBC) [Ratio]Ordered By: Elmira Quijano on 07-07-2024 Erythrocyte distribution width (RBC) [Entitic vol] 48.6 fL High 35.1-43.9 [facility] Erythrocyte distribution wid th ratioOrdered By: Elmira Quijano on 07-07-2024 Erythrocyte distribution width (RBC) [Ratio] 15.0 % High 11.6-14.6 [facility] Erythrocyte distribution wid th standard deviationOrdered By: Elmira Quijano on 07-07-2024 Erythrocyte distribution width (RBC) [Ratio] 48.6 fl High 35.1-43.9 [facility] Estimation of creatinine jhony aranceOrdered By: Elmira Quijano on 07-07-2024 Estimated Creatinine Clearance Calc 113.47 ml/min 50-250 [facility] GFR/1.73 sq M.predicted faith g non-blacks MDRD (S/P/Bld) [Vol rate/Area]Ordered By: Elmira Quijano on 07-07-2024 Estimated GFR (MDRD) Non-Af Amer 95 >60 [facility] Comment on above: mL/min/1.73m2 CKD-EP I Creatinine Equation (2020) Glomerular filtration rate ( GFR) estimation/1.73 sq m using serum, plasma, or whole bOrdered By: Elmira Quijano on 07-07-2024 GFR/1.73 sq M.predicted among non-blacks MDRD (S/P/Bld) [Vol rate/Area] 95 mL/min/{1.73_m2} >60 [facility] Comment on above: mL/min/1.73m2 CKD-EP I Creatinine Equation (2020) Hematocrit Auto (Bld) [Volum e fraction]Ordered By: Elmira Quijano on 07-07-2024 Hematocrit (Bld) [Volume fraction] 38.4 % 37-47 [facility] Hemoglobin measurementOrdere d By: Elmira Quijano on 07-07-2024 Hemoglobin (Bld) [Mass/Vol] 12.4 g/dL 12.0-15.0 [facility] Immature granulocytes/100 WB C Auto (Bld)Ordered By: Elmira Quijano on 07-07-2024 Immature granulocytes/100 WBC (Bld) 0.400 % 0.0-0.9 [facility] Comment on above: IG% - Immature Granu locytes (promyelocytes, myelocytes and metamyelocytes) > 1% indicates that a LEFT SHIFT is Present. Lymphocytes Auto (Unsp spec) [#/Vol]Ordered By: Elmira Quijano on 07-07-2024 Lymphocytes (Bld) [#/Vol] 2.04 10*3/uL 0.83-4.51 [facility] Lymphocytes/100 WBC Auto (Un sp spec)Ordered By: Elmira Quijano on 07-07-2024 Lymphocytes/100 WBC (Bld) 27.0 % 19-41 [facility] MCV (mean corpuscular volume ) determinationOrdered By: Elmira Quijano on 07-07-2024 MCV (RBC) [Entitic vol] 89.7 fL 81-[address] [facility] Mean corpuscular hemoglobin (MCH) determinationOrdered By: Elmira Quijano on 07-07-2024 MCH (RBC) [Entitic mass] 29.0 pg 27.0-32.0 [facility] Mean corpuscular hemoglobin concentration (MCHC) determinationOrdered By: Elmira Quijano on 07-07-2024 MCHC (RBC) [Mass/Vol] 32.3 g/dL 32-36 [facility] Mean platelet volume determi nationOrdered By: Elmira Quijano on 07-07-2024 Platelet mean volume (Bld) [Entitic vol] 12.7 fL High 6.2-12.0 [facility] Monocyte percentageOrdered B y: Elmira Quijano on 07-07-2024 Monocytes/100 WBC (Bld) 7.0 % 0-[address] [facility] Neutrophil percentageOrdered By: Elmira Quijano on 07-07-2024 Neutrophils/100 WBC (Bld) 63.7 % 47-70 [facility] Nucleated red blood cell per centageOrdered By: Elmira Quijano on 07-07-2024 Nucleated RBC/100 WBC (Bld) [Ratio] 0 % 0-5 [facility] Platelet countOrdered By: Pratima Quijano on 07-07-2024 Platelets (Bld) [#/Vol] 246 10*3/uL 150-450 [facility] Potassium (Unsp spec) [Mass/ Vol]Ordered By: Elmira Quijano on 07-07-2024 Potassium [Moles/Vol] 4.1 mmol/L 3.3-5.1 [facility] Potassium measurement (mass/ volume)Ordered By: Elmira Quijano on 07-07-2024 Potassium (Unsp spec) [Mass/Vol] 4.1 mmol/L 3.3-5.1 [facility] RBC Auto (Bld) [#/Vol]Ordere d By: Elmira Quijano on 07-07-2024 RBC (Bld) [#/Vol] 4.28 10*6/uL 4.2-5.4 [facility] Serum creatinine measurement (mass/volume)Ordered By: Elmira Quijano on 07-07-2024 Creatinine [Mass/Vol] 0.77 mg/dL 0.70-1.20 [facility] Serum glucose measurement (m ass/volume)Ordered By: Elmira Quijano on 07-07-2024 Glucose [Mass/Vol] 187 mg/dL High 70-99 [facility] Serum or plasma calcium lenny urement (mass/volume)Ordered By: Elmira Quijano on 07-07-2024 Calcium [Mass/Vol] 8.8 mg/dL 7.6-11.0 [facility] Serum or plasma urea nitroge n measurement (mass/volume)Ordered By: Elmira Quijano on 07-07-2024 Urea nitrogen [Mass/Vol] 12 mg/dL 4-19 [facility] Sodium levelOrdered By: Juan Quijano on 07-07-2024 Sodium [Moles/Vol] 138 mmol/L 133-145 [facility] Soft Tissue Neck WITH Contra ston 07-07-2024 Soft Tissue Neck WITH Contrast [facility] [address] [place], [place] [address] Soft Tissue Neck WITH Contrast MR#: [id number] Acct: [id number] Name: AMY NAIDU Rep #: [id number] : 1975 F 49 From: Anna Garland nd, MD PCP: Care Physician,No Primary Status: REG ER Study: Soft Tissue Neck WITH Contrast Date of Exam: 0 07/07/24 Exam# [id number] Ordering Dr: Elmira Quijano PROCEDURE: SOFT TISSUE [...] and physical exam correlation recommended. 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 .. [facility] Medical History Diabetes History of [...] included)... Normal [facility] Amphetamine Screen Ql (U)Ord ered By: Cata Boss on 05-15-2023 Amphetamines Ql (U) Not detected None Detect [facility] Comment on above: Cutoff: 500ng/mL CT biopsyOrdered By: aCta Boss on 05-15-2023 Benzodiazepines Ql (U) Not detected None Detect [facility] Comment on above: Cutoff: 200ng/mL Cocaine Ql (U) Not detected None Detect [facility] Comment on above: Cutoff: 150ng/mL CT biopsy Not detected None Detect [facility] Comment on above: Cutoff: 200ng/mL Glucometer POCon 05-15-2023 Glucose [Mass/Vol] 145 mg/dL High 70-110 Jorge quinonez [facility] Comment on above: Order Comment: Speci men Type: Unknown Relevant Clinical Information: POSITIVE COLOGUARD, POOR PREP Ordering Facility: [facility] Address: , , Performed By: #### G LUCOMETER #### POC Glucose Glucometer (dC) [M ass/Vol]Ordered By: Roman Breaux on 05-15-2023 Glucose [Mass/Vol] 145 mg/dL 70-110 Jorge quinonez [facility] HCG ( test) IA.rapi d Ql (S)Ordered By: Cata Boss on 05-15-2023 HCG ( test) Ql Negative Negative S [facility] HCG Qualitativeon 05-15-2023 HCG Qualitative Negative Normal Negative [facility] Comment on above: Order Comment: Speci men Type: Unknown Relevant Clinical Information: POSITIVE COLOGUARD, POOR PREP Ordering Facility: [facility] Lab-CLIA#[id number] Address: [address] [place] [address] Performed By: #### H CGQ #### [facility] Lab-CLIA#[id number] CLIA [id number] [address] [place] [address] Dimitri Herron DO, FCAP Hematoxylin and Eosin Staino n 05-15-2023 Hematoxylin and Eosin Stain RUN DATE: 05/16/23 [facility] Med *LIVE* - LAB PAGE 1 RUN TIME: 1415 Specimen Inquiry PATIENT: Amy Naidu ACCT: [id number] LOC: [facility] U: [id number] AGE/SX: 48/F ROOM: RE05/15/[address]: Roman Breaux D.O. : 1975 BED: DIS: STATUS: [facility] TLOC: SPEC : [id number] RECD: 05/15/23 STATUS: SOUT REQ NUM: [id number] MUNA: 05/15/23 DR: Roman Breaux D.O. ENTERED: [...] 1. Large intestine, rectum, biopsy: -Hyperplastic polyp. -------- Signed (signature on file) Grayson Yang MD 05/16/23 1414 -------- END OF REPORT [facility] Comment on above: Order Comment: Speci men Type: Unknown Does the patient have one or more UTI symptoms? Y Clean Catch Reason for Study: Does the patient have one or more UTI symptoms? Y Relevant Clinical Information: Left flank pain, dizzy, vomiting Ordering Facility: [facility] Lab-CLIA#[id number] Address: [address] [place] [address] Performed By: #### U [place], UAMRFLX #### [facility] Lab-CLIA#[id number] CLIA [id number] [address] [place] [address] Dimitri Herron DO, FCAP History Physical [place] [address] History Physical Update Signed Patient: Amy Naidu MR#: [id number] 93 : 1975 Acct: [id number] Age/Sex: 48 / F ADM Date: 05/15/23820 Loc: [facility] Attending Dr: Roman Breaux D.O. cc: Roman Breaux D.O. Review Pre-Op Review The H P was reviewed, the patient was examined, and no change has occurred in the patient???s condition since the H P was completed.: Yes Documented By: Roman Breaux D.O. 05/15/23820 Signed By: 05/15/23821 [facility] No Panel InformationOrdered By: Cata Boss on 05-15-2023 Urine Drug Screen Comment. See comment [facility] Comment on above: This method provides only [...] Post Anesthesia Noteon 05-15 Post Anesthesia Note [address] [address] Post Anesthesia Note Signed Patient: Amy Naidu MR#: [id number] 93 : 1975 Acct: [id number] Age/Sex: 48 / F ADM Date: 05/15/23 1015 Loc: [facility]. Attending Dr: Roman Breaux D.O. cc: [...] M.D. 05/15/23 1015 Signed By: 05/15/23 1015 [facility] Pre-Anesthesia Noteon 2023 Pre-Anesthesia Note [address] [address] Pre-Anesthesia Note Signed Patient: Amy Naidu MR#: [id number] 93 : 1975 Acct: [id number] Age/Sex: 48 / F ADM Date: 05/15/23747 [facility] Attending Dr: Roman Breaux D.O. cc: Cata [...] No Would like to be referred to Nursery Hand for info?: No Smoking Status: Current every [...] received: high school graduate Spiritual Healthcare Practices: lyndon Orthodox Healthcare Practices: lyndon Cultural Healthcare Practices: denies Father Diabetes (Updated [...] ORAL DAILY blood pressure 06/02/22 05/10/23 History mg-hydrochlorothiazid e 25 mg tablet cholecalciferol (vitamin D3) 50 [...] M.D. 02 (more content not included)... Normal [facility] Screening urine 6-acetylmorp erinn measurementOrdered By: Cata Boss on 05-15-2023 6-Monoacetylmorphine (6-NATASHA) Screen Ql (U) Not detected None Detect [facility] Comment on above: Cutoff: 10ng/mL Screening urine cannabinoids detection using 50 ng/mL cutoffOrdered By: Cata Boss on 05-15-2023 Tetrahydrocannabinol Screen method >50 ng/mL Ql (U) Not detected None Detect [facility] Comment on above: Cutoff: 50ng/mL Screening urine opiates test Ordered By: Cata Boss on 05-15-2023 Opiates Screen Ql (U) Not detected None Detect [facility] Comment on above: Cutoff: 300ng/mL Urine Drug Screen of Abuseon 05-15-2023 Amphetamine Screen Ur Not detected Normal None Detect [facility] Comment on above: Order Comment: Speci men Type: Unknown Relevant Clinical Information: POSITIVE COLOGUARD, POOR PREP Ordering Facility: [facility] Lab-CLIA#[id number] Address: [address] [place] [address] Result Comment: Cuto ff: 500ng/mL Performed By: #### U DSA #### [facility] Lab-CLIA#[id number] CLIA [id number] [address] [place] [address] Vincent Randaisi, DO,FCAP Barbiturate Screen Ur Not detected Normal None Detect [facility] Comment on above: Order Comment: Speci men Type: Unknown Relevant Clinical Information: POSITIVE COLOGUARD, POOR PREP Ordering Facility: [facility] Lab-CLIA#[id number] Address: [address] [place] [address] Result Comment: Cuto ff: 200ng/mL Performed By: #### U DSA #### [facility] Lab-CLIA#[id number] CLIA [id number] [address] [place] [address] Vincent Randaisi, DO,FCAP Benzodiazepines Screen Ur Not detected Normal None Detect [facility] Comment on above: Order Comment: Speci men Type: Unknown Relevant Clinical Information: POSITIVE COLOGUARD, POOR PREP Ordering Facility: [facility] Lab-CLIA#[id number] Address: [address] [place] [address] Result Comment: Cuto ff: 200ng/mL Performed By: #### U DSA #### [facility] Lab-CLIA#[id number] CLIA [id number] [address] [place] [address] Vincent Randaisi, DO,FCAP Buprenorphine Screen Ur Not detected Normal None Detec t [facility] Comment on above: Order Comment: Speci men Type: Unknown Relevant Clinical Information: POSITIVE COLOGUARD, POOR PREP Ordering Facility: [facility] Lab-CLIA#[id number] Address: [address] [place] [address] Result Comment: Cuto ff: 5ng/mL Performed By: #### U DSA #### [facility] Lab-CLIA#[id number] CLIA [id number] [address] [place] [address] Vincent Randaisi, DO,FCAP Cannabinoid Screen Urine Not detected Normal None Detect [facility] Comment on above: Order Comment: Speci men Type: Unknown Relevant Clinical Information: POSITIVE COLOGUARD, POOR PREP Ordering Facility: [facility] Lab-CLIA#[id number] Address: [address] [place] [address] Result Comment: Cuto ff: 50ng/mL Performed By: #### U DSA #### [facility] Lab-CLIA#[id number] CLIA [id number] [address] [place] [address] Vincsherlyn Randaisi, DO,FCAP Cocaine Screen Ur Not detected Normal None Detect [facility] Comment on above: Order Comment: Speci men Type: Unknown Relevant Clinical Information: POSITIVE COLOGUARD, POOR PREP Ordering Facility: [facility] Lab-CLIA#[id number] Address: [address] [place] [address] Result Comment: Cuto ff: 150ng/mL Performed By: #### U DSA #### [facility] Lab-CLIA#[id number] CLIA [id number] [address] [place] [address] Vincsherlyn Randaisi, DO,FCAP Fentanyl Screen Ur Not detected Normal None Detect [facility] Comment on above: Order Comment: Speci men Type: Unknown Relevant Clinical Information: POSITIVE COLOGUARD, POOR PREP Ordering Facility: [facility] Lab-CLIA#[id number] Address: [address] [place] [address] Result Comment: Cuto ff: 1.0 ng/mL Quinine and Quinidine may interfere with Fentanyl screening. Performed By: #### U DSA #### [facility] Lab-CLIA#[id number] CLIA [id number] [address] [place] [address] Vincent Randaisi, DO,FCAP Heroin (6-AM) Screen Ur Not detected Normal None Detec t [facility] Comment on above: Order Comment: Speci men Type: Unknown Relevant Clinical Information: POSITIVE COLOGUARD, POOR PREP Ordering Facility: [facility] Lab-CLIA#[id number] Address: [address] [place] [address] Result Comment: Cuto ff: 10ng/mL Performed By: #### U DSA #### [facility] Lab-CLIA#[id number] CLIA [id number] [address] [place] [address] Vincent Randaisi, DO,FCAP Methadone Screen Ur Not detected Normal None Detect So [facility] Comment on above: Order Comment: Speci men Type: Unknown Relevant Clinical Information: POSITIVE COLOGUARD, POOR PREP Ordering Facility: [facility] Lab-CLIA#[id number] Address: [address] [place] [address] Result Comment: Cuto ff: 150ng/mL Performed By: #### U DSA #### [facility] Lab-CLIA#[id number] CLIA [id number] [address] [place] [address] Vincent Randaisi, DO,FCAP Opiate Screen Ur Not detected Normal None Detect [facility] Comment on above: Order Comment: Speci men Type: Unknown Relevant Clinical Information: POSITIVE COLOGUARD, POOR PREP Ordering Facility: [facility] Lab-CLIA#[id number] Address: [address] [place] [address] Result Comment: Cuto ff: 300ng/mL Performed By: #### U DSA #### [facility] Lab-CLIA#[id number] CLIA [id number] [address] [place] [address] Vincent Randaisi, DO,FCAP Oxycodone Screen Ur Not detected Normal None Detect So [facility] Comment on above: Order Comment: Speci men Type: Unknown Relevant Clinical Information: POSITIVE COLOGUARD, POOR PREP Ordering Facility: [facility] Lab-CLIA#[id number] Address: [address], [place] [address] Result Comment: Cuto ff: 100ng/mL Performed By: #### U DSA #### [facility] Lab-CLIA#[id number] CLIA [id number] [address] [place] [address] Dimitri Herron DO,FCAP Urine Drug Message Normal [facility] Comment on above: Order Comment: Speci men Type: Unknown Relevant Clinical Information: POSITIVE COLOGUARD, POOR PREP Ordering Facility: [facility] Lab-CLIA#[id number] Address: [address] [place] [address] Result Comment: This method provides only a [...] purposes. Performed By: #### U DSA #### [facility] Lab-CLIA#[id number] CLIA [id number] [address] [place] [address] Dimitri Herron DO,FCAP Urine buprenorphine screenOr dered By: Cata Boss on 05-15-2023 Buprenorphine Screen Ql (U) Not detected None Detect [facility] Comment on above: Cutoff: 5ng/mL Urine fentanyl detection by screening methodOrdered By: Cata Boss on 05-15-2023 fentaNYL Screen Ql (U) Not detected None Detect [facility] Comment on above: Cutoff: 1.0 ng/mLQui nine and Quinidine may interfere with Fentanyl screening. Urine methadone screenOrdere d By: Cata Boss on 05-15-2023 Methadone Screen Ql (U) Not detected None Detec t [facility] Comment on above: Cutoff: 150ng/mL oxyCODONE Screen Ql (U)Order ed By: Cata Boss on 05-15-2023 oxyCODONE Ql (U) Not detected None Detect [facility] Comment on above: Cutoff: 100ng/mL General Surg History Physica todd 04-17-2023 General Surg History Physical [facility] [place] [address] [place] [address] General Surg History Physical Signed Patient: Amy Naidu MR#: [id number] 93 : 1975 Acct: [id number] Age/Sex: 47 / F ADM Date: 04/17/23907 Loc: [facility] Attending Dr: Roman Breaux D.O. cc: Roman [...] gait, back pain or myalgias Skin/Breast: Symptoms integumentary/breasts : Denies rash, erythema, abscess or wounds Neurologic: Neurologic: Reports Normal hearing present; Denies headache(s), dizziness or abnormal gait Psychiatric: Symptoms psychiatric: Denies anxiety, depression or change in appetite Endocrine: Symptoms endocrine: Denies fatigue, flushing or palpitations [place]/Lymph: Symptoms hematologic/lymphatic : Denies easy bleeding, easy bruising or petechiae [...] No Would like to be referred to Nursery Hand for info?: No Smoking Status: Current every [...] high school graduate Spiritual Healthcare Practices: none Orthodox Healthcare Practices: none Cultural Healthcare Practices: none [...] ORAL DAILY blood pressure 06/02/22 04/17/23 History mg-hydrochlorothiazid e 25 mg tablet cholecalciferol (vitamin D3) 50 [...] included)... Normal [facility] Glucometer POCon 04-17-2023 Glucose [Mass/Vol] 144 mg/dL High 70-110 Jorge quinonez [facility] Comment on above: Order Comment: Speci men Type: Unknown Relevant Clinical Information: POSITIVE COLOGUARD Ordering Facility: POC Address: , , Performed By: #### G LUCOMETER #### POC Glucose Glucometer (BldC) [M ass/Vol]Ordered By: Roman Breaux on 04-17-2023 Glucose [Mass/Vol] 144 mg/dL 70-110 [facility] HCG ( test) IA.pipo d Ql (S)Ordered By: Tree Reardon on 04-17-2023 HCG ( test) Ql Negative Negative S outhern [facility] HCG Qualitativeon 04-17-2023 HCG Qualitative Negative Normal Negative [facility] Comment on above: Order Comment: Speci men Type: Unknown Does the patient have one or more UTI symptoms? Y Clean Catch Reason for Study: Does the patient have one or more UTI symptoms? Y Relevant Clinical Information: Left flank pain, dizzy, vomiting Ordering Facility: [facility] Lab-CLIA#[id number] Address: [address] [place] [address] Performed By: #### U [place], UAMRFLX #### [facility] Lab-CLIA#[id number] CLIA [id number] [address] [place] [address] Vincent Randaisi, DO,FCAP Post Anesthesia Noteon 04-17 Post Anesthesia Note [address] [address] Post Anesthesia Note Signed Patient: Amy Naidu MR#: [id number] 93 : 1975 Acct: [id number] Age/Sex: 47 / F ADM Date: 04/17/23 1546 [facility]: Roman Breaux D.O. cc: [...] D.O. 04/17/23 1546 Signed By: 04/17/23 1546 Normal [facility] Pre-Anesthesia Noteon 2023 Pre-Anesthesia Note [facility] [address] [address] Pre-Anesthesia Note Signed Patient: Amy Naidu MR#: [id number] 93 : 1975 Acct: [id number] Age/Sex: 47 / F ADM Date: 04/17/23837 [...] No Would like to be referred to Nursery Hand for info?: No Smoking Status: Current every [...] high school graduate Spiritual Healthcare Practices: none Orthodox Healthcare Practices: none Cultural Healthcare Practices: none [...] ORAL DAILY blood pressure 06/02/22 04/17/23 History mg-hydrochlorothiazid e 25 mg tablet cholecalciferol (vitamin D3) 50 [...] included)... Normal [facility] Urine Cultureon 03-28-2023 Bacteria identified Cx Nom (U) ORGANISM ID: 1.1 Escherichia coli - Isolated [place] Count >100,000 CFU/ml Gram Negative Sensitivity 66 [...] F Nitrofurantoin S F Tobramycin S F Trimethoprim/Sulfamet hoxazole S F Piperacillin/Tazobact am S F Normal [facility] Comment on above: Order Comment: Speci men Type: Unknown Relevant Clinical Information: POSITIVE COLOGUARD, POOR PREP Ordering Facility: [facility] Lab-CLIA#[id number] Address: [address] [place] [address] Performed By: #### H CGQ #### [facility] Lab-CLIA#[id number] CLIA [id number] [address] [place] [address] Dimitri Herron DO, FCAP Urgent Care Noteon 3 Urgent Care Note [facility] [address] [facility] [address] [place] [address] Urgent Care Note Signed with Addenda Patient: Amy Naidu MR#: [id number] : 1975 Acct: [id number] Age/Sex: 47 / F Loc: [facility]. Date of Service: 03/26/[address]: Sagar Lema CNP cc: Chago Edwards DO ADDENDUM Office Procedure Documentation entered by Kadi Jhaveri LPN 03/26/23 14:05: POC Procedure Completed Procedure Procedure Completed?: Yes Details: Laboratory Tests 03/26/23 13:20 Urine Color Dark Yellow Urine Appearance Clear Urine pH 6.0 Ur Specific [place] >=1.030 POC Urine Protein Conf 100 A [...] Lim LPN amlodipine 5 mg ORAL DAILY benazepril-hydrochlor othiazide 20-25 mg 1 TABLET ORAL DAILY cholecalciferol [...] and colleagues, with an educational michelle from [employer] .. Nurse's Note Nurse's Note: pt c/o [...] No other complaints voiced at this time [facility] Medical History Diabetes History of [...] included)... Normal [facility] Urinalysis Routine Dipstick POCon 03-26-2023 Appearance (U) Clear Normal Clear [facility] Comment on above: Order Comment: Speci men Type: Unknown Relevant Clinical Information: POSITIVE COLOGUARD, POOR PREP Ordering Facility: [facility] Lab-CLIA#[id number] Address: [address] [place] [address] Performed By: #### H CGQ #### [facility] Lab-CLIA#[id number] CLIA [id number] [address] [place] [address] Dimitri Herron DO,FCAP Protein (U) [Mass/Vol] 100 mg/dL Abnormal Negative So [facility] Comment on above: Order Comment: Speci men Type: Unknown Relevant Clinical Information: POSITIVE COLOGUARD, POOR PREP Ordering Facility: [facility] Lab-CLIA#[id number] Address: [address] [place] [address] Performed By: #### H CGQ #### [facility] Lab-CLIA#[id number] CLIA [id number] [address] [place] [address] Dimitri Herron DO,FCAP Ur Specific [place] >=1.030 Normal 1.000-1.030 [facility] Comment on above: Order Comment: Speci men Type: Unknown Relevant Clinical Information: POSITIVE COLOGUARD, POOR PREP Ordering Facility: [facility] Lab-CLIA#[id number] Address: [address] [place] [address] Performed By: #### H CGQ #### [facility] Lab-CLIA#[id number] CLIA [id number] [address] [place] [address] Dimitri Herron DO,FCAP Urine Bilirubin POC Negative Normal Negative [facility] Comment on above: Order Comment: Speci men Type: Unknown Relevant Clinical Information: POSITIVE COLOGUARD, POOR PREP Ordering Facility: [facility] Lab-CLIA#[id number] Address: [address] [place] [address] Performed By: #### H CGQ #### [facility] Lab-CLIA#[id number] CLIA [id number] [address] [place] [address] Dimitri Herron DO,FCAP Urine Blood POC Small Abnormal Negative [facility] Comment on above: Order Comment: Speci men Type: Unknown Relevant Clinical Information: POSITIVE COLOGUARD, POOR PREP Ordering Facility: [facility] Lab-CLIA#[id number] Address: [address] [place] [address] Performed By: #### H CGQ #### [facility] Lab-CLIA#[id number] CLIA [id number] [address] [place] [address] Dimitri Herron, DO,FCAP Urine Color POC Dark Yellow Normal Yellow [facility] Comment on above: Order Comment: Speci men Type: Unknown Relevant Clinical Information: POSITIVE COLOGUARD, POOR PREP Ordering Facility: [facility] Lab-CLIA#[id number] Address: [address] [place] [address] Performed By: #### H CGQ #### [facility] Lab-CLIA#[id number] CLIA [id number] [address] [place] [address] Dimitri Herron DO,FCAP Urine Glucose POC 500 mg/dL Abnormal Negative [facility] Comment on above: Order Comment: Speci men Type: Unknown Relevant Clinical Information: POSITIVE COLOGUARD, POOR PREP Ordering Facility: [facility] Lab-CLIA#[id number] Address: [address] [place] [address] Performed By: #### H CGQ #### [facility] Lab-CLIA#[id number] CLIA [id number] [address] [place] [address] Dimitri Herron DO,FCAP Urine Ketones POC Negative Normal Negative [facility] Comment on above: Order Comment: Speci men Type: Unknown Relevant Clinical Information: POSITIVE COLOGUARD, POOR PREP Ordering Facility: [facility] Lab-CLIA#[id number] Address: [address] [place] [address] Performed By: #### H CGQ #### [facility] Lab-CLIA#[id number] CLIA [id number] [address] [place] [address] Dimitri Herron DO,FCAP Urine Leukocyte Esterase POC Small Abnormal Negative [facility] Comment on above: Order Comment: Speci men Type: Unknown Relevant Clinical Information: POSITIVE COLOGUARD, POOR PREP Ordering Facility: [facility] Lab-CLIA#[id number] Address: [address] [place] [address] Performed By: #### H CGQ #### [facility] Lab-CLIA#[id number] CLIA [id number] [address] [place] [address] Vincent Sherineaisi, DO,FCAP Urine Nitrites POC Positive Abnormal Negative [facility] Comment on above: Order Comment: Speci men Type: Unknown Relevant Clinical Information: POSITIVE COLOGUARD, POOR PREP Ordering Facility: [facility] Lab-CLIA#[id number] Address: [address] [place] [address] Performed By: #### H CGQ #### [facility] Lab-CLIA#[id number] CLIA [id number] [address] [place] [address] Dimitri Herrno, DO,FCAP Urine pH POC 6.0 Normal <=7.5 [facility] Comment on above: Order Comment: Speci men Type: Unknown Relevant Clinical Information: POSITIVE COLOGUARD, POOR PREP Ordering Facility: [facility] Lab-CLIA#[id number] Address: [address] [place] [address] Performed By: #### H CGQ #### [facility] Lab-CLIA#[id number] CLIA [id number] [address] [place] [address] Dimitri Herron, DO,FCAP Urine Urobilinogen POC 0.2 E.U./dL Normal 0-1.9 S [facility] Comment on above: Order Comment: Speci men Type: Unknown Relevant Clinical Information: POSITIVE COLOGUARD, POOR PREP Ordering Facility: [facility] Lab-CLIA#[id number] Address: [address] [place] [address] Performed By: #### H CGQ #### [facility] Lab-CLIA#[id number] CLIA [id number] [address] [place] [address] Vincsherlyn Herron, DO,FCAP Urine culture routineOrdered By: Sagar Lema on 03-26-2023 Bacteria identified Cx Nom (U) Escherichia coli [facility] Surgery Generalon 03-14-2023 [facility] [address] [facility] [address] [place] [address] Surgery General Signed Patient: Amy Naidu MR#: [id number] : 1975 Acct: [id number] Age/Sex: 47 / F Loc: SURG.AV Date of Service: 03/14/[address]: Roman Breaux D.O. cc: Chago Edwards V. DO Intake Vital Signs ([facility]) 03/14/23 14:13 Height 5 ft 5 in Weight 217 lb 13.067 oz BMI 36.2 BP 151/95 Pulse 78 Intake Visit Reasons: New Pt-Colonoscopy Is patient in acute pain: No Allergies hydromorphone [From Dilaudid] Adverse Reaction (Verified 03/14/23 14:14) Itching Smoking risk assessment performed?: Yes Medications - Last Reconciled 03/14/23 by Aric Groves LPN amlodipine 5 mg ORAL DAILY benazepril-hydrochlor othiazide 20-25 mg 1 TABLET ORAL DAILY cholecalciferol [...] and colleagues, with an educational michelle from [employer] .. [facility] Medical History Diabetes History of [...] anything to end your life?: No [facility] [employer] Review of Systems (Surgeons) Const [...] included)... Normal [facility] USTRANVAGon 01-30-2023 USTRANVAG [place] [address] Ultrasound Report Signed Patient: Amy Naidu MR#: [id number] : 1975 Acct: [id number] Age/Sex: 47 / F ADM Date: 01/30/23 Loc: [facility]. Attending Dr: Shaunna Estevez Ordering Physician: Shaunna Estevez Date of Service: 01/30/23 Procedure(s): US transvaginal Accession Number(s): [id number] cc: Chago Edwards DO; Shaunna Estevez ULTRASOUND [...] Electronically Signed By: Graham Baum D.O. 01/30/23 1221 [id number] Normal [facility] Amylaseon 01-06-2023 Amylase [Catalytic activity/Vol] 108 U/L Normal 30-118 [facility] Comment on above: Order Comment: Speci men Type: Unknown Relevant Clinical Information: POSITIVE COLOGUARD Ordering Facility: [facility] Address: , , Performed By: #### G LUCOMETER #### [facility]OC Basic Metabolic Panelon 0 Anion gap [Moles/Vol] 12 mmol/L Normal 7-17 [facility] Comment on above: Order Comment: Speci men Type: Unknown Relevant Clinical Information: POSITIVE COLOGUARD Ordering Facility: [facility] Address: , , Performed By: #### G LUCOMETER #### POC Calcium [Mass/Vol] 9.7 mg/dL Normal 8.3-10.6 [facility] Comment on above: Order Comment: Speci men Type: Unknown Relevant Clinical Information: POSITIVE COLOGUARD Ordering Facility: [facility] Address: , , Performed By: #### G LUCOMETER #### POC Chloride [Moles/Vol] 104 mmol/L Normal 98-107 [facility] Comment on above: Order Comment: Speci men Type: Unknown Relevant Clinical Information: POSITIVE COLOGUARD Ordering Facility: [facility] Address: , , Performed By: #### G LUCOMETER #### POC CO2 [Moles/Vol] 27 mmol/L Normal 20-31 [facility] Comment on above: Order Comment: Speci men Type: Unknown Relevant Clinical Information: POSITIVE COLOGUARD Ordering Facility: [facility] Address: , , Performed By: #### G LUCOMETER #### POC Creatinine [Mass/Vol] 1.070 mg/dL High 0.55-1.02 So [facility] Comment on above: Order Comment: Speci men Type: Unknown Relevant Clinical Information: POSITIVE COLOGUARD Ordering Facility: [facility] Address: , , Performed By: #### G LUCOMETER #### POC Creatinine Clr Calc Pharmacy 60 Normal [facility] Comment on above: Order Comment: Speci men Type: Unknown Relevant Clinical Information: POSITIVE COLOGUARD Ordering Facility: [facility] Address: , , Performed By: #### G LUCOMETER #### POC GFR/1.73 sq M.predicted MDRD (S/P/Bld) [Vol rate/Area] 59 mL/min/{1.73_m2} Low [facility] Comment on above: Order Comment: Speci men [...] POC Glucose [Mass/Vol] 128 mg/dL High 74-106 [facility] Comment on above: Order Comment: Speci men Type: Unknown Relevant Clinical Information: POSITIVE COLOGUARD Ordering Facility: [facility] Address: , , Performed By: #### G LUCOMETER #### POC Potassium [Moles/Vol] 3.9 mmol/L Normal 3.5-5.1 [facility] Comment on above: Order Comment: Speci men Type: Unknown Relevant Clinical Information: POSITIVE COLOGUARD Ordering Facility: [facility] Address: , , Performed By: #### G LUCOMETER #### POC Sodium [Moles/Vol] 139 mmol/L Normal 136-145 [facility] Comment on above: Order Comment: Speci men Type: Unknown Relevant Clinical Information: POSITIVE COLOGUARD Ordering Facility: [facility] Address: , , Performed By: #### G LUCOMETER #### POC Urea nitrogen [Mass/Vol] 17 mg/dL Normal 9- [facility] Comment on above: Order Comment: Speci men Type: Unknown Relevant Clinical Information: POSITIVE COLOGUARD Ordering Facility: [facility] Address: , , Performed By: #### G LUCOMETER #### POC CBC w/ Auto Diffon 3 Basophils Absolute Auto 0.02 10*3/uL Normal 0.00-0.10 [facility] Comment on above: Order Comment: Speci men Type: Unknown Relevant Clinical Information: Left flank pain, dizzy, vomiting Ordering Facility: [facility] Lab-CLIA#[id number] Address: [address] [place] [address] Performed By: #### C BC #### [facility]-CLIA#[id number] CLIA [id number] [address] [place] [address] Dimitri Herron, DO,FCAP Basophils/100 WBC (Bld) 0.2 % Normal 0.0-1.3 [facility] Comment on above: Order Comment: Speci men Type: Unknown Relevant Clinical Information: Left flank pain, dizzy, vomiting Ordering Facility: [facility] Lab-CLIA#[id number] Address: [address] [place] [address] Performed By: #### C BC #### [facility] Lab-CLIA#[id number] CLIA [id number] [address] [place] [address] Vincsherlyn Randaisi, DO,FCAP Eosinophils (Bld) [#/Vol] 0.36 10*3/uL Normal 0.00-0.50 [facility] Comment on above: Order Comment: Speci men Type: Unknown Relevant Clinical Information: Left flank pain, dizzy, vomiting Ordering Facility: [facility] Lab-CLIA#[id number] Address: [address] [place] [address] Performed By: #### C BC #### [facility]-CLIA#[id number] CLIA [id number] [address] [place] [address] Dimitri Herron, DO,FCAP Eosinophils/100 WBC (Bld) 3.0 % Normal 0.0-5.8 [facility] Comment on above: Order Comment: Speci men Type: Unknown Relevant Clinical Information: Left flank pain, dizzy, vomiting Ordering Facility: [facility] Lab-CLIA#[id number] Address: [address] [place] [address] Performed By: #### C BC #### [facility] Lab-CLIA#[id number] CLIA [id number] [address] [place] [address] Dimitri Herron, DO,FCAP Erythrocyte distribution width (RBC) [Ratio] 15.9 % High 11.6-14.8 [facility] Comment on above: Order Comment: Speci men Type: Unknown Relevant Clinical Information: Left flank pain, dizzy, vomiting Ordering Facility: [facility] Lab-CLIA#[id number] Address: [address] [place] [address] Performed By: #### C BC #### [facility]-CLIA#[id number] CLIA [id number] [address] [place] [address] Dimitri Herron, DO,FCAP Hematocrit (Bld) [Volume fraction] 49.5 % High 35.4-47.9 [facility] Comment on above: Order Comment: Speci men Type: Unknown Relevant Clinical Information: Left flank pain, dizzy, vomiting Ordering Facility: [facility] Lab-CLIA#[id number] Address: [address] [place] [address] Performed By: #### C BC #### [facility] Lab-CLIA#[id number] CLIA [id number] [address] [place] [address] Dimitri Herron, DO,FCAP Hemoglobin (Bld) [Mass/Vol] 16.1 g/dL High 11.9-16.0 [facility] Comment on above: Order Comment: Speci men Type: Unknown Relevant Clinical Information: Left flank pain, dizzy, vomiting Ordering Facility: [facility] Lab-CLIA#[id number] Address: [address] [place] [address] Performed By: #### C BC #### [facility] Lab-CLIA#[id number] CLIA [id number] [address] [place] [address] Dimitri Herron DO,FCAP Lymphocytes (Bld) [#/Vol] 2.10 10*3/uL Normal 0.80-3.30 [facility] Comment on above: Order Comment: Speci men Type: Unknown Relevant Clinical Information: Left flank pain, dizzy, vomiting Ordering Facility: [facility] Lab-CLIA#[id number] Address: [address] [place] [address] Performed By: #### C BC #### [facility] Lab-CLIA#[id number] CLIA [id number] [address] [place] [address] Dimitri Herron DO,FCAP Lymphocytes/100 WBC (Bld) 17.7 % Normal 13.4-45.1 [facility] Comment on above: Order Comment: Speci men Type: Unknown Relevant Clinical Information: Left flank pain, dizzy, vomiting Ordering Facility: [facility] Lab-CLIA#[id number] Address: [address] [place] [address] Performed By: #### C BC #### [facility] Lab-CLIA#[id number] CLIA [id number] [address] [place] [address] Dimitri Herron DO,FCAP MCH (RBC) [Entitic mass] 28.1 pg Normal 27.2-33.0 [facility] Comment on above: Order Comment: Speci men Type: Unknown Relevant Clinical Information: Left flank pain, dizzy, vomiting Ordering Facility: [facility] Lab-CLIA#[id number] Address: [address] [place] [address] Performed By: #### C BC #### [facility] Lab-CLIA#[id number] CLIA [id number] [address] [place] [address] Dimitri Herron, DO,FCAP MCHC (RBC) [Mass/Vol] 32.5 g/dL Normal 31.9-35.1 [facility] Comment on above: Order Comment: Speci men Type: Unknown Relevant Clinical Information: Left flank pain, dizzy, vomiting Ordering Facility: [facility] Lab-CLIA#[id number] Address: [address] [place] [address] Performed By: #### C BC #### [facility] Lab-CLIA#[id number] CLIA [id number] [address] [place] [address] Dimitri Herron, DO,FCAP MCV (RBC) [Entitic vol] 86.4 fL Normal 82.1-97.1 [facility] Comment on above: Order Comment: Speci men Type: Unknown Relevant Clinical Information: Left flank pain, dizzy, vomiting Ordering Facility: [facility] Lab-CLIA#[id number] Address: [address] [place] [address] Performed By: #### C BC #### [facility]-CLIA#[id number] CLIA [id number] [address] [place] [address] Dimitri Herron, DO,FCAP Monocytes (Bld) [#/Vol] 0.61 10*3/uL Normal 0.30-0.90 [facility] Comment on above: Order Comment: Speci men Type: Unknown Relevant Clinical Information: Left flank pain, dizzy, vomiting Ordering Facility: [facility] Lab-CLIA#[id number] Address: [address] [place] [address] Performed By: #### C BC #### [facility] Lab-CLIA#[id number] CLIA [id number] [address] [place] [address] Dimitri Herron, DO,FCAP Monocytes/100 WBC (Bld) 5.1 % Normal 4.0-12.7 [facility] Comment on above: Order Comment: Speci men Type: Unknown Relevant Clinical Information: Left flank pain, dizzy, vomiting Ordering Facility: [facility] Lab-CLIA#[id number] Address: [address] [place] [address] Performed By: #### C BC #### [facility] Lab-CLIA#[id number] CLIA [id number] [address] [place] [address] Dimitri Herron, DO,FCAP Neutrophils Absolute Auto 8.73 10*3/uL High 1.70-7.00 [facility] Comment on above: Order Comment: Speci men Type: Unknown Relevant Clinical Information: Left flank pain, dizzy, vomiting Ordering Facility: [facility] Lab-CLIA#[id number] Address: [address] [place] [address] Performed By: #### C BC #### [facility] Lab-CLIA#[id number] CLIA [id number] [address] [place] [address] Dimitri Herron DO,FCAP Neutrophils/100 WBC (Bld) 73.6 % Normal 41.1-75.9 [facility] Comment on above: Order Comment: Speci men Type: Unknown Relevant Clinical Information: Left flank pain, dizzy, vomiting Ordering Facility: [facility] Lab-CLIA#[id number] Address: [address] [place] [address] Performed By: #### C BC #### [facility] Lab-CLIA#[id number] CLIA [id number] [address] [place] [address] Dimitri Herron DO,FCAP Platelet mean volume (Bld) [Entitic vol] 12.3 fL High 8.6-12.2 [facility] Comment on above: Order Comment: Speci men Type: Unknown Relevant Clinical Information: Left flank pain, dizzy, vomiting Ordering Facility: [facility] Lab-CLIA#[id number] Address: [address] [place] [address] Performed By: #### C BC #### [facility] Lab-CLIA#[id number] CLIA [id number] [address] [place] [address] Dimitri Herron, ,FCAP Platelets (Bld) [#/Vol] 270 10*3/uL Normal 133-425 [facility] Comment on above: Order Comment: Speci men Type: Unknown Relevant Clinical Information: Left flank pain, dizzy, vomiting Ordering Facility: [facility] Lab-CLIA#[id number] Address: [address] [place] [address] Performed By: #### C BC #### [facility] Lab-CLIA#[id number] CLIA [id number] [address] [place] [address] Dimitri Herron DO,FCAP RBC (Bld) [#/Vol] 5.73 10*6/uL High 3.40-5.40 [facility] Comment on above: Order Comment: Speci men Type: Unknown Relevant Clinical Information: Left flank pain, dizzy, vomiting Ordering Facility: [facility] Lab-CLIA#[id number] Address: [address] [place] [address] Performed By: #### C BC #### [facility] Lab-CLIA#[id number] CLIA [id number] [address] [place] [address] Dimitri Herron DO,FCAP WBC (Bld) [#/Vol] 11.9 10*3/uL High 4.5-11.0 [facility] Comment on above: Order Comment: Speci men Type: Unknown Relevant Clinical Information: Left flank pain, dizzy, vomiting Ordering Facility: [facility] Lab-CLIA#[id number] Address: [address] [place] [address] Performed By: #### C BC #### [facility] Lab-CLIA#[id number] CLIA [id number] [address] [place] [address] Dimitri Herron DO,FCAP CTABDPELWOon 01-06-[address] [place], [place] [address] CT Scan Report Signed Patient: Amy Naidu MR#: [id number] : 1975 Acct: [id number] Age/Sex: 47 / F ADM Date: 01/05/23 Loc: ER.SV Attending Dr: Ordering Physician: Nichelle Gil CNP Date of Service: 01/05/23 Procedure(s): CT abdomen pelvis wo con Accession Number(s): [id number] cc: Nichelle Gil CNP; Chago Edwards DO [...] pancreatitis ADRENAL GLANDS: No nodule or cyst. KIDNEYS/URETERS/URINA RY BLADDER: Collapsed bladder. There is no hydronephrosis [...] Electronically Signed By: Álvaro Palomino D.O. 01/05/23 2331 [id number] Normal [facility] Emergency Department Noteon 01-06-2023 Emergency Department Note [facility] [place] [address] [place] [address] Emergency Department Note Signed Patient: Amy Naidu MR#: [id number] : 1975 Acct: [id number] Age/Sex: 47 / F ADM Date: 01/05/23 Loc: ER.SV Attending Dr: Nichelle Gil CNP cc: Chago Edwards DO HPI - General Adult General Chief complaint: Nausea/Vomiting/Diarr hea Stated complaint: Left flank pain, dizzy, vomiting [...] tablet ORAL DAILY blood pressure 06/02/22 01/03/23 mg-hydrochlorothiazid e 25 mg tablet cholecalciferol (vitamin D3) 50 [...] and no additional complaints, except as documented [employer] [employer] INTEGRITY ENGINEER - Last Filed: 01/18/23 08:34> ENT: ENT: Reports system reviewed and no additional complaints, except as documented and dizziness; Denies headache(s) Cardio: Cardiology: Reports system reviewed and no additional complaints, except as documented; Denies chest pain, dyspnea on exertion, palpitations, ankle/foot swelling or dyspnea [employer] [employer]NAL INTEGRITY ENGINEER - Last Filed: 01/18/23 08:34> Resp: Respiratory: [...] additional complaints, except as documented Skin/Breast: Symptoms integumentary/breasts : Reports system reviewed and no additional complaints, except as documented Neurologic: Neurologic: Reports system reviewed and no additional complaints, except as documented, dizziness and weakness; Denies headache(s) Psychiatric: Symptoms psychiatric: Reports system (more content not included)... Normal [facility] HCG Qualitativeon 01-06-2023 HCG Qualitative Negative Normal Negative [facility] Comment on above: Order Comment: Speci men Type: Unknown Relevant Clinical Information: POSITIVE COLOGUARD, POOR PREP Ordering Facility: [facility] Lab-CLIA#[id number] Address: [address] [place] [address] Performed By: #### H CGQ #### [facility] Lab-CLIA#[id number] CLIA [id number] [address] [place] [address] Dimitri Herron DO, FCAP Hepatic Function Panelon Albumin [Mass/Vol] 4.4 g/dL Normal 3.4-5.0 [facility] Comment on above: Order Comment: Speci men Type: Unknown Relevant Clinical Information: POSITIVE COLOGUARD, POOR PREP Ordering Facility: [facility] Lab-CLIA#[id number] Address: [address] [place] [address] Performed By: #### H CGQ #### [facility] Lab-CLIA#[id number] CLIA [id number] [address] [place] [address] Vincent Randaisi, DO,FCAP ALP [Catalytic activity/Vol] 122 U/L High 46-116 [facility] Comment on above: Order Comment: Speci men Type: Unknown Relevant Clinical Information: POSITIVE COLOGUARD, POOR PREP Ordering Facility: [facility] Lab-CLIA#[id number] Address: [address] [place] [address] Performed By: #### H CGQ #### [facility] Lab-CLIA#[id number] CLIA [id number] [address] [place] [address] Dimitri Herron DO,FCAP ALT [Catalytic activity/Vol] 22 U/L Normal 10-49 [facility] Comment on above: Order Comment: Speci men Type: Unknown Relevant Clinical Information: POSITIVE COLOGUARD, POOR PREP Ordering Facility: [facility] Lab-CLIA#[id number] Address: [address] [place] [address] Performed By: #### H CGQ #### [facility] Lab-CLIA#[id number] CLIA [id number] [address] [place] [address] Dimitri Herron DO,FCAP AST [Catalytic activity/Vol] 21 U/L Normal <34 [facility] Comment on above: Order Comment: Speci men Type: Unknown Relevant Clinical Information: POSITIVE COLOGUARD, POOR PREP Ordering Facility: [facility] Lab-CLIA#[id number] Address: [address] [place] [address] Performed By: #### H CGQ #### [facility] Lab-CLIA#[id number] CLIA [id number] [address] [place] [address] Dimitri Herron DO,FCAP Bilirubin [Mass/Vol] 0.6 mg/dL Normal 0.3-1.2 [facility] Comment on above: Order Comment: Speci men Type: Unknown Relevant Clinical Information: POSITIVE COLOGUARD, POOR PREP Ordering Facility: [facility] Lab-CLIA#[id number] Address: [address] [place] [address] Performed By: #### H CGQ #### [facility] Lab-CLIA#[id number] CLIA [id number] [address] [place] [address] Vincsherlyn Herron, DO,FCAP Bilirubin.indirect [Mass/Vol] 0.2 mg/dL Normal <0.4 [facility] Comment on above: Order Comment: Speci men Type: Unknown Relevant Clinical Information: POSITIVE COLOGUARD, POOR PREP Ordering Facility: [facility] Lab-CLIA#[id number] Address: [address] [place] [address] Performed By: #### H CGQ #### [facility] Lab-CLIA#[id number] CLIA [id number] [address] [place] [address] Dimitri Herron DO,FCAP Protein [Mass/Vol] 8.2 g/dL Normal 5.7-8.2 [facility] Comment on above: Order Comment: Speci men Type: Unknown Relevant Clinical Information: POSITIVE COLOGUARD, POOR PREP Ordering Facility: [facility] Lab-CLIA#[id number] Address: [address] [place] [address] Performed By: #### H CGQ #### [facility] Lab-CLIA#[id number] CLIA [id number] [address] [place] [address] Dimitri Herron DO,FCAP Lactic Acid Sepsis Reflexon 01-06-2023 Lactic Acid Sepsis Reflex 1.2 mmol/L Normal 0.5-2.0 [facility] Comment on above: Order Comment: Speci men Type: Unknown Relevant Clinical Information: Left flank pain, dizzy, vomiting Ordering Facility: [facility] Lab-CLIA#[id number] Address: [address] [place] [address] Performed By: #### L ACRFX #### [facility] Lab-CLIA#[id number] CLIA [id number] [address] [place] [address] Dimitri Herron DO,FCAP Lipaseon 01-06-2023 Lipase [Catalytic activity/Vol] 64 U/L High 12-53 [facility] Comment on above: Order Comment: Speci men Type: Unknown Relevant Clinical Information: POSITIVE COLOGUARD Ordering Facility: [facility] Address: , , Performed By: #### G LUCOMETER #### [facility] UA Reflex to Micro and Cultu reon 01-06-2023 Appearance (U) Turbid Abnormal Clear [facility] Comment on above: Order Comment: Speci men Type: Unknown Does the patient have one or more UTI symptoms? Y Clean Catch Reason for Study: Does the patient have one or more UTI symptoms? Y Relevant Clinical Information: Left flank pain, dizzy, vomiting Ordering Facility: [facility] Lab-CLIA#[id number] Address: [address] [place] [address] Performed By: #### U [place], UAMRFLX #### [facility] Lab-CLIA#[id number] CLIA [id number] [address] [place] [address] Dimitri Herron, DO,FCAP Bilirubin Urine Negative Normal Negative [facility] Comment on above: Order Comment: Speci men Type: Unknown Does the patient have one or more UTI symptoms? Y Clean Catch Reason for Study: Does the patient have one or more UTI symptoms? Y Relevant Clinical Information: Left flank pain, dizzy, vomiting Ordering Facility: [facility] Lab-CLIA#[id number] Address: [address] [place] [address] Performed By: #### U [place], UAMRFLX #### [facility] Lab-CLIA#[id number] CLIA [id number] [address] [place] [address] Dimitri Herron DO,FCAP Blood Urine Negative Normal Negative [facility] Comment on above: Order Comment: Speci men Type: Unknown Does the patient have one or more UTI symptoms? Y Clean Catch Reason for Study: Does the patient have one or more UTI symptoms? Y Relevant Clinical Information: Left flank pain, dizzy, vomiting Ordering Facility: [facility] Lab-CLIA#[id number] Address: [address] [place] [address] Performed By: #### U [place], UAMRFLX #### [facility]-CLIA#[id number] CLIA [id number] [address] [place] [address] Dimitri Herron DO,FCAP Color (U) Dark Yellow Normal Yellow [facility] Comment on above: Order Comment: Speci men Type: Unknown Does the patient have one or more UTI symptoms? Y Clean Catch Reason for Study: Does the patient have one or more UTI symptoms? Y Relevant Clinical Information: Left flank pain, dizzy, vomiting Ordering Facility: [facility] Lab-CLIA#[id number] Address: [address] [place] [address] Performed By: #### U [place], UAMRFLX #### [facility]CL[facility]#[id number] CLIA [id number] [address] [place] [address] Dimitri Herron DO,FCAP Glucose Urine UA >=1000 Abnormal Negative [facility] Comment on above: Order Comment: Speci men Type: Unknown Does the patient have one or more UTI symptoms? Y Clean Catch Reason for Study: Does the patient have one or more UTI symptoms? Y Relevant Clinical Information: Left flank pain, dizzy, vomiting Ordering Facility: [facility] Lab-CLIA#[id number] Address: [address] [place] [address] Performed By: #### U [place], UAMRFLX #### [facility]CL[facility]#[id number] CLIA [id number] [address] [place] [address] Dimitri Herron DO,FCAP Ketones Ql (U) Trace Abnormal Negative [facility] Comment on above: Order Comment: Speci men Type: Unknown Does the patient have one or more UTI symptoms? Y Clean Catch Reason for Study: Does the patient have one or more UTI symptoms? Y Relevant Clinical Information: Left flank pain, dizzy, vomiting Ordering Facility: [facility] Lab-CLIA#[id number] Address: [address] [place] [address] Performed By: #### U [place], UAMRFLX #### [facility]-CLIA#[id number] CLIA [id number] [address] [place] [address] Dimitri Herron DO,FCAP Leukocyte Esterase Ur Negative Normal Negative [facility] Comment on above: Order Comment: Speci men Type: Unknown Does the patient have one or more UTI symptoms? Y Clean Catch Reason for Study: Does the patient have one or more UTI symptoms? Y Relevant Clinical Information: Left flank pain, dizzy, vomiting Ordering Facility: [facility] Lab-CLIA#[id number] Address: [address] [place] [address] Performed By: #### U [place], UAMRFLX #### [facility] Lab-CLIA#[id number] CLIA [id number] [address] [place] [address] Dimitri Herron DO,FCAP Nitrite Urine Negative Normal Negative [facility] Comment on above: Order Comment: Speci men Type: Unknown Does the patient have one or more UTI symptoms? Y Clean Catch Reason for Study: Does the patient have one or more UTI symptoms? Y Relevant Clinical Information: Left flank pain, dizzy, vomiting Ordering Facility: [facility] Lab-CLIA#[id number] Address: [address] [place] [address] Performed By: #### U [place], UAMRFLX #### [facility] Lab-CLIA#[id number] CLIA [id number] [address] [place] [address] Dimitri Herron DO,FCAP pH (U) 6.0 [pH] Normal <=7.5 [facility] Comment on above: Order Comment: Speci men Type: Unknown Does the patient have one or more UTI symptoms? Y Clean Catch Reason for Study: Does the patient have one or more UTI symptoms? Y Relevant Clinical Information: Left flank pain, dizzy, vomiting Ordering Facility: [facility] Lab-CLIA#[id number] Address: [address] [place] [address] Performed By: #### U [place], UAMRFLX #### [facility] Lab-CLIA#[id number] CLIA [id number] [address] [place] [address] Dimitri Herron DO,FCAP Protein Urine 30 Abnormal Negative [facility] Comment on above: Order Comment: Speci men Type: Unknown Does the patient have one or more UTI symptoms? Y Clean Catch Reason for Study: Does the patient have one or more UTI symptoms? Y Relevant Clinical Information: Left flank pain, dizzy, vomiting Ordering Facility: [facility] Lab-CLIA#[id number] Address: [address] [place] [address] Performed By: #### U [place], UAMRFLX #### [facility] Lab-CLIA#[id number] CLIA [id number] [address] [place] [address] Dimitri Herron DO,FCAP Specific [place] Ur 1.041 High 1.005-1.025 [facility] Comment on above: Order Comment: Speci men Type: Unknown Does the patient have one or more UTI symptoms? Y Clean Catch Reason for Study: Does the patient have one or more UTI symptoms? Y Relevant Clinical Information: Left flank pain, dizzy, vomiting Ordering Facility: [facility] Lab-CLIA#[id number] Address: [address] [place] [address] Performed By: #### U [place], UAMRFLX #### [facility] Lab-CLIA#[id number] CLIA [id number] [address] [place] [address] Dimitri Herron DO,FCAP Urine Type Clean Catch Normal [facility] Comment on above: Order Comment: Speci men Type: Unknown Does the patient have one or more UTI symptoms? Y Clean Catch Reason for Study: Does the patient have one or more UTI symptoms? Y Relevant Clinical Information: Left flank pain, dizzy, vomiting Ordering Facility: [facility] Lab-CLIA#[id number] Address: [address] [place] [address] Performed By: #### U [place], UAMRFLX #### [facility] Lab-CLIA#[id number] CLIA [id number] [address] [place] [address] Dimitri Herron DO, FCAP Urobilinogen Urine 1.0 E.U./dL Normal 0-2.0 [facility] Comment on above: Order Comment: Speci men Type: Unknown Does the patient have one or more UTI symptoms? Y Clean Catch Reason for Study: Does the patient have one or more UTI symptoms? Y Relevant Clinical Information: Left flank pain, dizzy, vomiting Ordering Facility: [facility] Lab-CLIA#[id number] Address: [address] [place] [address] Performed By: #### U [place], UAMRFLX #### [facility] Lab-CLIA#[id number] CLIA [id number] [address] [place] [address] Dimitri Herron DOFCPAUL Urine Cultureon 01-06-2023 Bacteria identified Cx Nom (U) Urine Culture: No growth at 100 CFU/ml or greater Normal [facility] Comment on above: Order Comment: Speci men Type: Unknown Relevant Clinical Information: POSITIVE COLOGUARD, POOR PREP Ordering Facility: [facility] Lab-CLIA#[id number] Address: [address] [place] [address] Performed By: #### H CGQ #### [facility] Lab-CLIA#[id number] CLIA [id number] [address] [place] [address] Dimitri Herron DOFCPAUL Urine Microscopicon 01-07-20 23 Hyaline Casts Urine 4 /LPF Normal 0-5 [facility] Comment on above: Order Comment: Speci men Type: Unknown Does the patient have one or more UTI symptoms? Y Clean Catch Reason for Study: Does the patient have one or more UTI symptoms? Y Relevant Clinical Information: Left flank pain, dizzy, vomiting Ordering Facility: [facility] Lab-CLIA#[id number] Address: [address] [place] [address] Performed By: #### U [place], UAMRFLX #### [facility] Lab-CLIA#[id number] CLIA [id number] [address] [place] [address] Dimitri Herron DO,FCAP RBC LM.HPF (Urine sed) [#/Area] 4 /[HPF] Normal 0-5 [facility] Comment on above: Order Comment: Speci men Type: Unknown Does the patient have one or more UTI symptoms? Y Clean Catch Reason for Study: Does the patient have one or more UTI symptoms? Y Relevant Clinical Information: Left flank pain, dizzy, vomiting Ordering Facility: [facility] Lab-CLIA#[id number] Address: [address] [place] [address] Performed By: #### U [place], UAMRFLX #### [facility] Lab-CLIA#[id number] CLIA [id number] [address] [place] [address] Dimitri Herron DO,FCAP Squamous Epithelial Cell Urine >36 High 0-4 [facility] Comment on above: Order Comment: Speci men Type: Unknown Does the patient have one or more UTI symptoms? Y Clean Catch Reason for Study: Does the patient have one or more UTI symptoms? Y Relevant Clinical Information: Left flank pain, dizzy, vomiting Ordering Facility: [facility] Lab-CLIA#[id number] Address: [address] [place] [address] Performed By: #### U [place], UAMRFLX #### [facility] Lab-CLIA#[id number] CLIA [id number] [address] [place] [address] Dimitri Herron DO,FCAP Urine Bacteria Many Abnormal None [facility] Comment on above: Order Comment: Speci men Type: Unknown Does the patient have one or more UTI symptoms? Y Clean Catch Reason for Study: Does the patient have one or more UTI symptoms? Y Relevant Clinical Information: Left flank pain, dizzy, vomiting Ordering Facility: [facility] Lab-CLIA#[id number] Address: [address] [place] [address] Performed By: #### U [place], UAMRFLX #### [facility] Lab-CLIA#[id number] CLIA [id number] [address] [place] [address] Dimitri Herron DO,FCAP WBC LM.HPF (Urine sed) [#/Area] 6 /[HPF] High 0-4 [facility] Comment on above: Order Comment: Speci men Type: Unknown Does the patient have one or more UTI symptoms? Y Clean Catch Reason for Study: Does the patient have one or more UTI symptoms? Y Relevant Clinical Information: Left flank pain, dizzy, vomiting Ordering Facility: [facility] Lab-CLIA#[id number] Address: [address] [place] [address] Performed By: #### U [place], UAMRFLX #### [facility] Lab-CLIA#[id number] CLIA [id number] [address] [place] [address] Dimitri Herron DO,FCAP Urine culture routineOrdered By: Mani Silvestre on 01-06-2023 Bacteria identified Cx Nom (U) [facility] Absolute lymphocyte countOrd ered By: Mani Silvestre on 01-05-2023 Lymphocytes Auto (Unsp spec) [#/Vol] 2.10 10*3/uL 0.80-3.30 [facility] Appearance urOrdered By: Joe Silvestre on 01-05-2023 Appearance (U) Turbid Clear [facility] Automated bacteria count in urine sediment (number/area)Ordered By: Mani Silvestre on 01-05-2023 Bacteria Auto (Urine sed) [#/Area] Many None [facility] Automated erythrocytes count in urine sediment (number/area)Ordered By: Mani Silvestre on 01-05-2023 RBC Auto (Urine sed) [#/Area] 4 /HPF 0-5 [facility] Automated non-squamous epith elial cells count in urine sediment (number/area)Ordered By: Mani Silvestre on 10-05-2023 Epithelial cells.non-squamous Auto (Urine sed) [#/Area] >36 /HPF 0-4 [facility] Automated urine leukocytes c ount (number/volume)Ordered By: Mani Silvestre on 01-05-2023 WBC Auto (U) [#/Vol] 6 /HPF 0-4 [facility] Basophils Auto (Bld) [#/Vol] Ordered By: Mani Silvestre on 01-05-2023 Basophils (Bld) [#/Vol] 0.02 10*3/uL 0.00-0.10 [facility] Basophils/100 WBC Auto (Bld) Ordered By: Mani Silvestre on 01-05-2023 Basophils/100 WBC (Bld) 0.2 % 0.0-1.3 S [facility] Bilirubin Auto test strip Ql (U)Ordered By: Mani Silvestre on 01-05-2023 Bilirubin Ql (U) Negative Negative [facility] Blood hemoglobin measurement (mass/volume)Ordered By: Mani Silvestre on 01-05-2023 Hemoglobin (Bld) [Mass/Vol] 16.1 g/dL 11.9-16.0 [facility] Direct bilirubin measurement Ordered By: Mani Silvestre on 01-05-2023 Bilirubin.direct [Mass/Vol] 0.2 mg/dL 0.0-0.3 [facility] Eosinophils Auto (Bld) [#/Vo l]Ordered By: Mani Silvestre on 01-05-2023 Eosinophils (Bld) [#/Vol] 0.36 10*3/uL 0.00-0.50 [facility] Eosinophils/100 WBC Auto (Bl d)Ordered By: Mani Silvestre on 01-05-2023 Eosinophils/100 WBC (Bld) 3.0 % 0.0-5.8 [facility] Erythrocyte distribution wid th Auto (RBC) [Ratio]Ordered By: Mani Silvestre on 01-05-2023 Erythrocyte distribution width (RBC) [Ratio] 15.9 % 11.6-14.8 [facility] Glomerular filtration rate ( GFR) estimation/1.73 sq m using creatinine measurement wiOrdered By: Mani Silvestre on 01-05-2023 GFR/1.73 sq M.predicted CKD-EPI (S/P/Bld) [Vol rate/Area] 59 mL/min >60 [facility] Comment on above: K/DOQI Guideline:Sta ge 1 [...] HCG ( test) Ql Negative Negative S [facility] Hematocrit Auto (Bld) [Volum e fraction]Ordered By: Mani Silvestre on 01-05-2023 Hematocrit (Bld) [Volume fraction] 49.5 % 35.4-47.9 [facility] Hyaline casts detection in u rine sediment by light microscopyOrdered By: Mani Silvestre on 01-05-2023 Hyaline casts LM Ql (Urine sed) 4 /LPF 0-5 [facility] Ketones Auto test strip (U) [Mass/Vol]Ordered By: Mani Silvestre on 01-05-2023 Ketones (U) [Mass/Vol] Trace Negative [facility] - Chemistry and C hemistry - challengeOrdered By: Mani Silvestre on 01-05-2023 Anion gap [Moles/Vol] 12 mmol/L 7-17 [facility] Lymphocytes/100 WBC Auto (Bl d)Ordered By: Mani Silvestre on 01-05-2023 Lymphocytes/100 WBC (Bld) 17.7 % 13.4-45.1 [facility] MCH Auto (RBC) [Entitic mass ]Ordered By: Mani Silvestre on 01-05-2023 MCH (RBC) [Entitic mass] 28.1 pg 27.2-33.0 [facility] MCHC Auto (RBC) [Mass/Vol]Or dered By: Mani Silvestre on 01-05-2023 MCHC (RBC) [Mass/Vol] 32.5 g/dL 31.9-35.1 [facility] MCV (mean corpuscular volume ) determinationOrdered By: Mani Silvestre on 01-05-2023 MCV (RBC) [Entitic vol] 86.4 fL 82.1-97.1 S [facility] Monocytes Auto (Bld) [#/Vol] Ordered By: Mani Silvestre on 01-05-2023 Monocytes (Bld) [#/Vol] 0.61 10*3/uL 0.30-0.90 [facility] Monocytes/100 WBC Auto (Bld) Ordered By: Mani Silvestre on 01-05-2023 Monocytes/100 WBC (Bld) 5.1 % 4.0-12.7 S [facility] Neutrophils Auto (Bld) [#/Vo l]Ordered By: Mani Silvestre on 01-05-2023 Neutrophils (Bld) [#/Vol] 8.73 10*3/uL 1.70-7.00 [facility] Neutrophils/100 WBC Auto (Bl d)Ordered By: Mani Silvestre on 01-05-2023 Neutrophils/100 WBC (Bld) 73.6 % 41.1-75.9 [facility] No Panel InformationOrdered By: Mani Silvestre on 01-05-2023 Pharmacy Creatinine Clearance (Chem 60 [facility] Platelet mean volume Auto (B ld) [Entitic vol]Ordered By: Mani Silvestre on 01-05-2023 Platelet mean volume (Bld) [Entitic vol] 12.3 fL 8.6-12.2 [facility] Platelets Auto (Bld) [#/Vol] Ordered By: Mani Silvestre on 01-05-2023 Platelets (Bld) [#/Vol] 270 10*3/uL 133-425 [facility] Protein Auto test strip (U) [Mass/Vol]Ordered By: Mani Silvestre on 01-05-2023 Protein (U) [Mass/Vol] 30 mg/dL Negative [facility] RBC Auto (Bld) [#/Vol]Ordere d By: Mani Silvestre on 01-05-2023 RBC (Bld) [#/Vol] 5.73 10*6/uL 3.40-5.40 [facility] Serum or plasma alanine gonzalez otransferase measurement with P-5'-P (enzymatic activity/Ordered By: Mani Silvestre on 01-05-2023 ALT With P-5'-P [Catalytic activity/Vol] 22 U/L 10-49 [facility] Serum or plasma albumin lenny urement by bromocresol purple (BCP) dye binding method (mOrdered By: Mani Silvestre on 01-05-2023 Albumin BCP dye [Mass/Vol] 4.4 g/dL 3.4-5.0 [facility] Serum or plasma alkaline husam sphatase measurement (enzymatic activity/volume)Ordered By: Mani Silvestre on 01-05-2023 ALP [Catalytic activity/Vol] 122 U/L 46-116 [facility] Serum or plasma amylase lenny urement (enzymatic activity/volume)Ordered By: Mani Silvestre on 01-05-2023 Amylase [Catalytic activity/Vol] 108 U/L 30-118 [facility] Serum or plasma aspartate am inotransferase measurement with P-5'-P (enzymatic activitOrdered By: Mani Silvestre on 01-05-2023 AST With P-5'-P [Catalytic activity/Vol] 21 U/L 0-33 [facility] Serum or plasma calcium lenny urement (mass/volume)Ordered By: Mani Silvestre 01-05-2023 Calcium [Mass/Vol] 9.7 mg/dL 8.3-10.6 [facility] Serum or plasma chloride cydney surement (moles/volume)Ordered By: Mani Silvestre on 01-05-2023 Chloride [Moles/Vol] 104 mmol/L 98-107 [facility] Serum or plasma creatinine m easurement (mass/volume)Ordered By: Mani Silvestre on 01-05-2023 Creatinine [Mass/Vol] 1.070 mg/dL 0.55-1.02 [facility] Serum or plasma glucose lenny urement (mass/volume)Ordered By: Mani Silvestre on 01-05-2023 Glucose [Mass/Vol] 128 mg/dL 74-106 [facility] Serum or plasma lactate lenny urement (moles/volume)Ordered By: Mani Silvestre on 01-05-2023 Lactate [Moles/Vol] 1.2 mmol/L 0.5-2.0 [facility] Serum or plasma lipase measu rement (enzymatic activity/volume)Ordered By: Mani Silvestre on 01-05-2023 Lipase [Catalytic activity/Vol] 64 U/L 12 [facility] Serum or plasma potassium me asurement (moles/volume)Ordered By: Mani Silvestre 01-05-2023 Potassium [Moles/Vol] 3.9 mmol/L 3.5-5.1 [facility] Serum or plasma sodium measu rement (moles/volume)Ordered By: Mani Silvestre 01-05-2023 Sodium [Moles/Vol] 139 mmol/L 136-[facility] Serum or plasma total biliru bin measurement (mass/volume)Ordered By: Mani Silvestre 01-05-2023 Bilirubin [Mass/Vol] 0.6 mg/dL 0.3-1.2 [facility] Serum or plasma total carbon dioxide measurement (moles/volume)Ordered By: Mani Silvestre 01-05-2023 CO2 [Moles/Vol] 27 mmol/L [facility] Serum or plasma urea nitroge n measurement (mass/volume)Ordered By: Mnai Silvestre 01-05-2023 Urea nitrogen [Mass/Vol] 17 mg/dL 12-24 [facility] Serum total protein measurem ent (mass/volume)Ordered By: Mani Silvestre 01-05-2023 Protein [Mass/Vol] 8.2 g/dL 5.7-8.2 [facility] Urine blood detectionOrdered By: Mani Silvestre on 01-05-2023 RBC Ql (U) Negative Negative [facility] Urine colorOrdered By: Mani Silvestre on 01-05-2023 Color (U) Dark Yellow Yellow [facility] Urine culture routineOrdered By: Mani Silvestre on 01-05-2023 Bacteria identified Cx Nom (U) [facility] Urine glucose measurement by automated test strip (mass/volume)Ordered By: Mani Silvestre on 01-05-2023 Glucose Auto test strip (U) [Mass/Vol] >=1000 mg/dL Negative [facility] Urine leukocyte esterase det ection by automated test stripOrdered By: Mani Silvestre on 01-05-2023 Leukocyte esterase Auto test strip Ql (U) Negative Negative [facility] Urine nitrite detection by a utomated test stripOrdered By: Mani Silvestre on 01-05-2023 Nitrite Auto test strip Ql (U) Negative Negative [facility] Urine pHOrdered By: Mani espinoza on 01-05-2023 pH (U) 6.0 [pH] 0-7.5 [facility] Urine specific gravity measu rementOrdered By: Mani Silvestre on 01-05-2023 Specific gravity (U) [Rel density] 1.041 1.005-1.025 [facility] Urine urobilinogen measureme ntOrdered By: Mani Silvestre on 01-05-2023 Urobilinogen Ql (U) 1.0 E.U./dL 0-2.0 [facility] WBC Auto (Bld) [#/Vol]Ordere d By: Mani Silvestre on 01-05-2023 WBC (Bld) [#/Vol] 11.9 10*3/uL 4.5-11.0 [facility] Urgent Care Noteon 3 Urgent Care Note [facility] [address] [place] [address] Urgent Care Note Signed Patient: Amy Naidu MR#: [id number] : 1975 Acct: [id number] Age/Sex: 47 / F Loc: [facility]. Date of Service: 01/03/[address]: Tamara Espinosa APRN, SIGNAL INTEGRITY ENGINEER cc: Chago Edwards V. DO Intake Vital [...] Jhaveri LPN amlodipine 5 mg ORAL DAILY benazepril-hydrochlor othiazide 20-25 mg 1 TABLET ORAL DAILY cholecalciferol [...] and colleagues, with an educational michelle from [employer] .. 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 Review of Systems [facility] Information given by: patient Const Denies body aches, Denies chills, Denies fatigue, Denies fever(s), Denies headache(s) and Denies weakness ENT Denies dysphagia, (more content not included)... Normal [facility] Urinalysis Routine Dipstick POCon 01-03-2023 Appearance (U) Slightly Cloudy Normal Clear [facility] Comment on above: Order Comment: Speci men Type: Unknown Relevant Clinical Information: UTI Symptoms Ordering Facility: [facility] Address: , , Performed By: #### P OCUA #### [facility] CLIA [id number] Ur Specific [place] 1.020 Normal 1.000-1.030 [facility] Comment on above: Order Comment: Speci men Type: Unknown Relevant Clinical Information: UTI Symptoms Ordering Facility: [facility] Address: , , Performed By: #### P OCUA #### [facility] CLIA [id number] Urine Bilirubin POC Negative Normal Negative [facility] Comment on above: Order Comment: Speci men Type: Unknown Relevant Clinical Information: UTI Symptoms Ordering Facility: [facility] Address: , , Performed By: #### P OCUA #### [facility] CLIA [id number] Urine Blood POC Negative Normal Negative [facility] Comment on above: Order Comment: Speci men Type: Unknown Relevant Clinical Information: UTI Symptoms Ordering Facility: [facility] Address: , , Performed By: #### P OCUA #### [facility] CLIA [id number] Urine Color POC Yellow Normal Yellow [facility] Comment on above: Order Comment: Speci men Type: Unknown Relevant Clinical Information: UTI Symptoms Ordering Facility: [facility] Address: , , Performed By: #### P OCUA #### [facility] CLIA [id number] Urine Glucose POC >=1000 Abnormal Negative [facility] Comment on above: Order Comment: Speci men Type: Unknown Relevant Clinical Information: UTI Symptoms Ordering Facility: [facility] Address: , , Performed By: #### P OCUA #### [facility] CLIA [id number] Urine Ketones POC Trace Abnormal Negative [facility] Comment on above: Order Comment: Speci men Type: Unknown Relevant Clinical Information: UTI Symptoms Ordering Facility: [facility] Address: , , Performed By: #### P OCUA #### [facility] CLIA [id number] Urine Leukocyte Esterase POC Negative Normal Negative [facility] Comment on above: Order Comment: Speci men Type: Unknown Relevant Clinical Information: UTI Symptoms Ordering Facility: [facility] Address: , , Performed By: #### P OCUA #### [facility] CLIA [id number] Urine Nitrites POC Negative Normal Negative [facility] Comment on above: Order Comment: Speci men Type: Unknown Relevant Clinical Information: UTI Symptoms Ordering Facility: [facility] Address: , , Performed By: #### P OCUA #### [facility] CLIA [id number] Urine pH POC 6.0 Normal <=7.5 [facility] Comment on above: Order Comment: Speci men Type: Unknown Relevant Clinical Information: UTI Symptoms Ordering Facility: [facility] Address: , , Performed By: #### P OCUA #### [facility] CLIA [id number] Urine Protein POC Negative Normal Negative [facility] Comment on above: Order Comment: Speci men Type: Unknown Relevant Clinical Information: UTI Symptoms Ordering Facility: [facility] Address: , , Performed By: #### P OCUA #### [facility] CLIA [id number] Urine Urobilinogen POC 1.0 E.U./dL Normal 0-1.9 S [facility] Comment on above: Order Comment: Speci men Type: Unknown Relevant Clinical Information: UTI Symptoms Ordering Facility: [facility] Address: , , Performed By: #### P OCUA #### [facility] CLIA [id number] Urine Cultureon 10-03-2023 Bacteria identified Cx Nom (U) Urine Culture: No growth at 100 CFU/ml or greater Normal [facility] Comment on above: Order Comment: Speci men Type: Unknown Does the patient have one or more UTI symptoms? Y Clean Catch Reason for Study: Does the patient have one or more UTI symptoms? Y Relevant Clinical Information: Left flank pain, dizzy, vomiting Ordering Facility: [facility] Lab-CLIA#[id number] Address: [address] [place] [address] Performed By: #### U [place], UAMRFLX #### [facility] Lab-CLIA#[id number] CLIA [id number] [address] [place] [address] Dimitri Herron DO,ARDEN Urine culture routineOrdered By: Tamara Espinosa on 01-03-2023 Bacteria identified Cx Nom (U) [facility] Bacteria identified Cx Nom (U) [facility] Absolute lymphocyte countOrd ered By: Solo Sanchez on 06-02-2022 Lymphocytes Auto (Unsp spec) [#/Vol] 3.40 10*3/uL 0.80-3.30 [facility] Aerobic and anaerobic cultur e blood cultureOrdered By: Solo Sanchez on 06-02-2022 Bacteria identified Anaer+Aer cx Nom (Unsp spec) Time of report was 120 hours. [facility] Bacteria identified Anaer+Aer cx Nom (Unsp spec) Time of report was 120 hours. [facility] Appearance urOrdered By: Solo Sanchez on 06-02-2022 Appearance (U) Clear Clear [facility] Basophils Auto (Bld) [#/Vol] Ordered By: Solo Sanchez on 06-02-2022 Basophils (Bld) [#/Vol] 0.06 10*3/uL 0.00-0.10 [facility] Basophils/100 WBC Auto (Bld) Ordered By: Solo Sanchez on 06-02-2022 Basophils/100 WBC (Bld) 0.6 % 0.0-1.3 [facility] Bilirubin Auto test strip Ql (U)Ordered By: Solo Sanchez on 06-02-2022 Bilirubin Ql (U) Negative Negative [facility] Blood hemoglobin measurement (mass/volume)Ordered By: Solo Sanchez on 06-02-2022 Hemoglobin (Bld) [Mass/Vol] 13.7 g/dL 11.9-16.0 [facility] Direct bilirubin measurement Ordered By: Solo Sanchez on 06-02-2022 Bilirubin.direct [Mass/Vol] mg/dL 0.0-0.3 [facility] Eosinophils Auto (Bld) [#/Vo l]Ordered By: Solo Sanchez on 06-02-2022 Eosinophils (Bld) [#/Vol] 0.19 10*3/uL 0.00-0.50 [facility] Eosinophils/100 WBC Auto (Bl d)Ordered By: Solo Sanchez on 06-02-2022 Eosinophils/100 WBC (Bld) 1.9 % 0.0-5.8 [facility] Erythrocyte distribution wid th Auto (RBC) [Ratio]Ordered By: Solo Sanchez on 06-02-2022 Erythrocyte distribution width (RBC) [Ratio] 15.6 % 11.6-14.8 [facility] Glomerular filtration rate ( GFR) estimation/1.73 sq m using creatinine measurement wiOrdered By: Solo Sanchez on 06-02-2022 GFR/1.73 sq M.predicted CKD-EPI (S/P/Bld) [Vol rate/Area] 83 mL/min >60 [facility] Comment on above: K/DOQI Guideline:Sta ge 1 [...] HCG ( test) Ql Negative Negative S [facility] Hematocrit Auto (Bld) [Volum e fraction]Ordered By: Solo Sanchez on 06-02-2022 Hematocrit (Bld) [Volume fraction] 43.0 % 35.4-47.9 [facility] Ketones Auto test strip (U) [Mass/Vol]Ordered By: Solo Sanchez on 06-02-2022 Ketones (U) [Mass/Vol] Negative Negative [facility] Lymphocytes/100 WBC Auto (Bl d)Ordered By: Solo Sanchez on 06-02-2022 Lymphocytes/100 WBC (Bld) 34.7 % 13.4-45.1 [facility] MCH Auto (RBC) [Entitic mass ]Ordered By: Solo Sanchez on 06-02-2022 MCH (RBC) [Entitic mass] 28.0 pg 27.2-33.0 [facility] MCHC Auto (RBC) [Mass/Vol]Or dered By: Solo Sanchez on 06-02-2022 MCHC (RBC) [Mass/Vol] 31.9 g/dL 31.9-35.1 [facility] MCV (mean corpuscular volume ) determinationOrdered By: Solo Sanchez on 06-02-2022 MCV (RBC) [Entitic vol] 87.8 fL 82.1-97.1 S [facility] Monocytes Auto (Bld) [#/Vol] Ordered By: Solo Sanchez on 06-02-2022 Monocytes (Bld) [#/Vol] 0.86 10*3/uL 0.30-0.90 [facility] Monocytes/100 WBC Auto (Bld) Ordered By: Solo Sanchez on 06-02-2022 Monocytes/100 WBC (Bld) 8.8 % 4.0-12.7 S [facility] Neutrophils Auto (Bld) [#/Vo l]Ordered By: Solo Sanchez on 06-02-2022 Neutrophils (Bld) [#/Vol] 5.28 10*3/uL 1.70-7.00 [facility] Neutrophils/100 WBC Auto (Bl d)Ordered By: Solo Sanchez on 06-02-2022 Neutrophils/100 WBC (Bld) 53.8 % 41.1-75.9 [facility] No Panel InformationOrdered By: Solo Sanchez on 06-02-2022 Pharmacy Creatinine Clearance (Chem 80 [facility] Platelet mean volume Auto (B ld) [Entitic vol]Ordered By: Solo Sanchez on 06-02-2022 Platelet mean volume (Bld) [Entitic vol] 12.2 fL 8.6-12.2 [facility] Platelets Auto (Bld) [#/Vol] Ordered By: Solo Sanchez on 06-02-2022 Platelets (Bld) [#/Vol] 266 10*3/uL 133-425 [facility] Protein Auto test strip (U) [Mass/Vol]Ordered By: Solo Sanchez on 06-02-2022 Protein (U) [Mass/Vol] Negative Negative [facility] RBC Auto (Bld) [#/Vol]Ordere d By: Solo Sanchez on 06-02-2022 RBC (Bld) [#/Vol] 4.90 10*6/uL 3.40-5.40 [facility] Serum or plasma alanine gonzalez otransferase measurement with P-5'-P (enzymatic activity/Ordered By: Solo Sanchez on 06-02-2022 ALT With P-5'-P [Catalytic activity/Vol] 42 U/L 10-49 [facility] Serum or plasma albumin lenny urement by bromocresol purple (BCP) dye binding method (mOrdered By: Solo Sanchez on 06-02-2022 Albumin BCP dye [Mass/Vol] 3.8 g/dL 3.4-5.0 [facility] Serum or plasma alkaline husam sphatase measurement (enzymatic activity/volume)Ordered By: Solo Sanchez on 06-02-2022 ALP [Catalytic activity/Vol] 98 U/L 46-116 [facility] Serum or plasma aspartate am inotransferase measurement with P-5'-P (enzymatic activitOrdered By: Solo Sanchez on 06-02-2022 AST With P-5'-P [Catalytic activity/Vol] 23 U/L 0-33 [facility] Serum or plasma calcium lenny urement (mass/volume)Ordered By: Solo Sanchez on 06-02-2022 Calcium [Mass/Vol] 9.1 mg/dL 8.3-10.6 Jorge [facility] Serum or plasma cardiac trop onin I measurement (mass/volume)Ordered By: Solo Sanchez on 06-02-2022 Troponin I.cardiac [Mass/Vol] 3.48 pg/mL 0-45.19 [facility] Comment on above: Troponin-I High Sens itivity Reference Range: <45.20 Negative, repeat testing in 3 hours if clinically indicated. >=45.20 Indicative of myocardial injury. Erroneous results may be obtained with patients taking high dose biotin supplements. Serum or plasma chloride cydney surement (moles/volume)Ordered By: Solo Sanchez on 06-02-2022 Chloride [Moles/Vol] 110 mmol/L 98-107 [facility] Serum or plasma creatinine m easurement (mass/volume)Ordered By: Solo Sanchez on 06-02-2022 Creatinine [Mass/Vol] 0.799 mg/dL 0.55-1.02 [facility] Serum or plasma glucose lenny urement (mass/volume)Ordered By: Solo Sanchez on 06-02-2022 Glucose [Mass/Vol] 140 mg/dL 74-106 [facility] Serum or plasma lactate lenny urement (moles/volume)Ordered By: Solo Sanchez on 06-02-2022 Lactate [Moles/Vol] 1.5 mmol/L 0.5-2.0 [facility] Serum or plasma lipase measu rement (enzymatic activity/volume)Ordered By: Solo Sanchez on 06-02-2022 Lipase [Catalytic activity/Vol] 56 U/L 12-53 [facility] Serum or plasma potassium me asurement (moles/volume)Ordered By: Solo Sanchez on 06-02-2022 Potassium [Moles/Vol] 4.6 mmol/L 3.5-5.1 [facility] Serum or plasma sodium measu rement (moles/volume)Ordered By: Solo Sanchez on 06-02-2022 Sodium [Moles/Vol] 144 mmol/L 136-145 Jorge quinonez [facility] Serum or plasma total biliru bin measurement (mass/volume)Ordered By: Solo Sanchez on 06-02-2022 Bilirubin [Mass/Vol] 0.3 mg/dL 0.3-1.2 [facility] Serum or plasma total carbon dioxide measurement (moles/volume)Ordered By: Solo Sanchez on 06-02-2022 CO2 [Moles/Vol] 27 mmol/L 20-31 [facility] Serum or plasma urea nitroge n measurement (mass/volume)Ordered By: Solo Sanchez on 06-02-2022 Urea nitrogen [Mass/Vol] 9 mg/dL 9- [facility] Serum total protein measurem ent (mass/volume)Ordered By: Solo Sanchez on 06-02-2022 Protein [Mass/Vol] 7.3 g/dL 5.7-8.2 Jorge [facility] Urine blood detectionOrdered By: Solo Sanchez on 06-02-2022 RBC Ql (U) Negative Negative [facility] Urine colorOrdered By: Solo alvarado on 06-02-2022 Color (U) Yellow Yellow [facility] Urine glucose measurement by automated test strip (mass/volume)Ordered By: Solo Sanchez on 06-02-2022 Glucose Auto test strip (U) [Mass/Vol] >=1000 mg/dL Negative [facility] Urine leukocyte esterase det ection by automated test stripOrdered By: Solo Sanchez on 06-02-2022 Leukocyte esterase Auto test strip Ql (U) Negative Negative [facility] Urine nitrite detection by a utomated test stripOrdered By: Solo Sanchez on 06-02-2022 Nitrite Auto test strip Ql (U) Negative Negative [facility] Urine pHOrdered By: Solo sesay on 06-02-2022 pH (U) 5.5 [pH] 0-7.5 [facility] Urine specific gravity measu rementOrdered By: Solo Sanchez on 06-02-2022 Specific gravity (U) [Rel density] 1.049 1.005-1.025 [facility] Urine urobilinogen measureme ntOrdered By: Solo Sanchez on 06-02-2022 Urobilinogen Ql (U) 1.0 E.U./dL 0-2.0 [facility] WBC Auto (Bld) [#/Vol][place] By: Solo Sanchez on 06-02-2022 WBC (Bld) [#/Vol] 9.8 10*3/uL 4.5-11.0 Jorge [facility] Absolute lymphocyte counton 12-18-2021 Lymphocytes Auto (Unsp spec) [#/Vol] 2.94 10*3/uL 0.80-3.30 [facility] Work Phone: Appearance uron 12-18-2021 Appearance (U) Turbid Clear [facility] Work Phone: Automated bacteria count in urine sediment (number/area)on 12-18-2021 Bacteria Auto (Urine sed) [#/Area] Many None [facility] Work Phone: Automated erythrocytes count in urine sediment (number/area)on 12-18-2021 RBC Auto (Urine sed) [#/Area] 19 /HPF 0-5 [facility] Work Phone: Automated non-squamous epith elial cells count in urine sediment (number/area)on 12-18-2021 Epithelial cells.non-squamous Auto (Urine sed) [#/Area] 5 /HPF 0-4 [facility] Work Phone: Automated urine leukocytes c ount (number/volume)on 12-18-2021 WBC Auto (U) [#/Vol] 20 /HPF 0-4 [facility] Work Phone: Basophils Auto (Bld) [#/Vol] on 12-18-2021 Basophils (Bld) [#/Vol] 0.04 10*3/uL 0.00-0.10 [facility] Work Phone: Basophils/100 WBC Auto (Bld) on 12-18-2021 Basophils/100 WBC (Bld) 0.4 % 0.0-1.3 [facility]: Bilirubin Auto test strip Ql (U)on 12-18-2021 Bilirubin Ql (U) Small Negative [facility] Work Phone: Blood hemoglobin measurement (mass/volume)on 12-18-2021 Hemoglobin (Bld) [Mass/Vol] 12.9 g/dL 11.9-16.0 [facility] Work Phone: Calcium oxalate crystals det ection in urine sediment by light microscopyon 12-18-2021 Calcium oxalate crystals LM Ql (Urine sed) Present None [facility] Work Phone: Eosinophils Auto (Bld) [#/Vo l]on 12-18-2021 Eosinophils (Bld) [#/Vol] 0.09 10*3/uL 0.00-0.50 [facility] Work Phone: Eosinophils/100 WBC Auto (Bl d)on 12-18-2021 Eosinophils/100 WBC (Bld) 1.0 % 0.0-5.8 [facility] Work Phone: Erythrocyte distribution wid th Auto (RBC) [Ratio]on 12-18-2021 Erythrocyte distribution width (RBC) [Ratio] 15.8 % 11.6-14.8 [facility] Work Phone: Glomerular filtration rate ( GFR) estimation/1.73 sq m using creatinine measurement wion 12-18-2021 GFR/1.73 sq M.predicted CKD-EPI (S/P/Bld) [Vol rate/Area] 84 mL/min >60 [facility] Work Phone: Comment on above: K/DOQI Guideline:Sta [...] Hematocrit (Bld) [Volume fraction] 40.5 % 35.4-47.9 [facility] Work Phone: Hyaline casts detection in u rine sediment by light microscopyon 12-18-2021 Hyaline casts LM Ql (Urine sed) 8 /LPF 0-5 [facility] Work Phone: [phone] Ketones Auto test strip (U) [Mass/Vol]on 12-18-2021 Ketones (U) [Mass/Vol] Trace Negative [facility] Work Phone: [phone] Laboratory - Chemistry and C hemistry - challengeon 12-18-2021 Glucose [Mass/Vol] 216 mg/dL 70-110 Jorge [facility] Work Phone: Lymphocytes/100 WBC Auto (Bl d)on 12-18-2021 Lymphocytes/100 WBC (Bld) 31.6 % 13.4-45.1 [facility] Work Phone: MCH Auto (RBC) [Entitic mass ]on 12-18-2021 MCH (RBC) [Entitic mass] 26.7 pg 27.2-33.0 [facility] Work Phone: MCHC Auto (RBC) [Mass/Vol]on 12-18-2021 MCHC (RBC) [Mass/Vol] 31.9 g/dL 31.9-35.1 [facility] Work Phone: [phone] MCV (mean corpuscular volume ) determinationon 12-18-2021 MCV (RBC) [Entitic vol] 83.9 fL 82.1-97.1 S [facility] Work Phone: Monocytes Auto (Bld) [#/Vol] on 12-18-2021 Monocytes (Bld) [#/Vol] 0.58 10*3/uL 0.30-0.90 [facility] Work Phone: Monocytes/100 WBC Auto (Bld) on 12-18-2021 Monocytes/100 WBC (Bld) 6.2 % 4.0-12.7 S [facility] Work Phone: Neutrophils Auto (Bld) [#/Vo l]on 12-18-2021 Neutrophils (Bld) [#/Vol] 5.63 10*3/uL 1.70-7.00 [facility] Work Phone: Neutrophils/100 WBC Auto (Bl d)on 12-18-2021 Neutrophils/100 WBC (Bld) 60.5 % 41.1-75.9 [facility] Work Phone: No Panel Informationon 12-18 Pharmacy Creatinine Clearance (Chem 82 [facility] Work Phone: Platelet mean volume Auto (B ld) [Entitic vol]on 12-18-2021 Platelet mean volume (Bld) [Entitic vol] 12.7 fL 8.6-12.2 [facility] Work Phone: Platelets Auto (Bld) [#/Vol] on 12-18-2021 Platelets (Bld) [#/Vol] 288 10*3/uL 133-425 [facility] Work Phone: Protein Auto test strip (U) [Mass/Vol]on 12-18-2021 Protein (U) [Mass/Vol] 100 mg/dL Negative [facility] Work Phone: RBC Auto (Bld) [#/Vol]on RBC (Bld) [#/Vol] 4.83 10*6/uL 3.40-5.40 [facility] Work Phone: SARS-CoV-2 (COVID-19) RNA [P resence] in Nasopharynx by TK with probe detectionon 12-18-2021 SARS-CoV-2 (COVID-19) RNA TK+probe Ql (Nph) Not detected Not Detect [facility] Work Phone: Comment on above: Method: Real-time [...] RdRp gene TK+probe Ql (Resp) Negative Negative [facility] Work Phone: Comment on above: The sensitivity of t he assay is dependent on the quality of the specimen collected for testing. The assay is performed on the Glass instrument utilizing isothermal nucleic acid amplification technology. [...] 12-18-2021 Calcium [Mass/Vol] 8.2 mg/dL 8.3-10.6 Jorge quinonez [facility] Work Phone: [phone] Serum or plasma cardiac trop onin I measurement (mass/volume)on 12-18-2021 Troponin I.cardiac [Mass/Vol] 6.72 pg/mL 0-45.20 [facility] Work Phone: Comment on above: Troponin-I High Sens itivity Reference Range: <45.20 Negative, repeat testing in 3 hours if clinically indicated. >=45.20 Indicative of myocardial injury. Erroneous results may be obtained with patients taking high dose biotin supplements. Serum or plasma chloride cydney surement (moles/volume)on 12-18-2021 Chloride [Moles/Vol] 107 mmol/L 98-107 [facility] Work Phone: [phone] Serum or plasma creatinine m easurement (mass/volume)on 12-18-2021 Creatinine [Mass/Vol] 0.792 mg/dL 0.55-1.02 [facility] Work Phone: [phone] Serum or plasma glucose lenny urement (mass/volume)on 12-18-2021 Glucose [Mass/Vol] 249 mg/dL 74-106 Jorge [facility] Work Phone: [phone] Serum or plasma potassium me asurement (moles/volume)on 12-18-2021 Potassium [Moles/Vol] 4.4 mmol/L 3.5-5.1 [facility] Work Phone: [phone] Serum or plasma sodium measu rement (moles/volume)on 12-18-2021 Sodium [Moles/Vol] 138 mmol/L 136-145 Jorge quinonez [facility] Work Phone: [phone] Serum or plasma total carbon dioxide measurement (moles/volume)on 12-18-2021 CO2 [Moles/Vol] 24 mmol/L 20-31 [facility] Work Phone: [phone] Serum or plasma urea nitroge n measurement (mass/volume)on 12-18-2021 Urea nitrogen [Mass/Vol] 8 mg/dL 12-24 [facility] Work Phone: Urine blood detectionon 12-02 RBC Ql (U) Negative Negative [facility] Work Phone: [phone] Urine coloron 12-18-2021 Color (U) Dark Yellow Yellow [facility] Work Phone: [phone] Urine glucose measurement by automated test strip (mass/volume)on 12-18-2021 Glucose Auto test strip (U) [Mass/Vol] >=1000 mg/dL Negative [facility] Work Phone: [phone] Urine leukocyte esterase det ection by automated test stripon 12-18-2021 Leukocyte esterase Auto test strip Ql (U) Negative Negative [facility] Work Phone: [phone] Urine nitrite detection by a utomated test stripon 12-18-2021 Nitrite Auto test strip Ql (U) Negative Negative [facility] Work Phone: [phone] Urine pHon 12-18-2021 pH (U) 6.5 [pH] 0-7.5 [facility] Work Phone: [phone] Urine specific gravity measu rementon 12-18-2021 Specific gravity (U) [Rel density] 1.038 1.005-1.025 [facility] Work Phone: [phone] Urine urobilinogen measureme nton 12-18-2021 Urobilinogen Ql (U) 2.0 E.U./dL 0-2.0 [facility] Work Phone: WBC Auto (Bld) [#/Vol]on WBC (Bld) [#/Vol] 9.3 10*3/uL 4.5-11.0 Jorge quinonez [facility] Work Phone: BASIC METABOLIC PANELon 11-01 Anion gap [Moles/Vol] 7 mmol/L Normal [facility] Comment on above: Performed By: #### L [id number] #### [facility] [address] [place] [address] B/C 22 High 10-20 [facility] Comment on above: Performed By: #### L [id number] #### [facility] [address], [place] Calcium [Mass/Vol] 8.6 mg/dL Normal 8.5-10.5 [facility] Comment on above: Performed By: #### L [id number] #### [facility] [address], [place] Chloride [Moles/Vol] 104 mmol/L Normal 101-111 [facility] Comment on above: Performed By: #### L [id number] #### [facility] [address] [place] [address] CO2 [Moles/Vol] 30 mmol/L Normal 21-31 [facility] Comment on above: Performed By: #### L [id number] #### [facility] [address] [place] [address] Creatinine [Mass/Vol] 0.6 mg/dL Normal 0.4-1.0 [facility] Comment on above: Performed By: #### L [id number] #### [facility] [address] [place] [address] GFR/1.73 sq M.predicted MDRD (S/P/Bld) [Vol rate/Area] mL/min/{1.73_m2} Normal [facility] Comment on above: Result Comment: *The estimated Glomerular Filtration Rate(EGFR) may not be accurate for children under the age of 18 yrs. To estimate the GFR for -Americans multiply the result provided by 1.21. Stage 1 90 mL/min or greater Stage 2 60-89 mL/min Stage 3 30-59 mL/min Stage 4 15-29 mL/min Stage 5 14 mL/min or less Performed By: #### L [id number] #### [facility] [address] [place] [address] Glucose [Mass/Vol] 109 mg/dL Normal 70-110 [facility] Comment on above: Performed By: #### L [id number] #### [facility] [address] [place] [address] Osmolality [Osmolality] 282 mosm/kg Normal 266-309 [facility] Comment on above: Performed By: #### L [id number] #### [facility] [address] [place], [place] Potassium [Moles/Vol] 3.8 mmol/L Normal 3.6-5.0 [facility] Comment on above: Performed By: #### L [id number] #### [facility] [address] [place] [address] Sodium [Moles/Vol] 141 mmol/L Normal 135-145 [facility] Comment on above: Performed By: #### L [id number] #### [address] [address] Urea nitrogen [Mass/Vol] 13 mg/dL Normal 6-20 [facility] Comment on above: Performed By: #### L [id number] #### [address] Syphilis Ab, Total, Son 03-0 Syphilis Ab, Total, S Non-Reactive Normal Non-Reactive [facility] Comment on above: Performed By: #### L CX9314, XUB5669, QIC0291, QTC0312, JHK1865, INV2673 #### [place] [address] CBCon 05-29-2020 Basophil Abs. 0.1 10*3/uL Normal 0.0-0.1 [facility] Comment on above: Performed By: #### L ZZ0665, FLY3192, TFK0030, NTV9649, MOQ2940, QDW8671 #### [address] [address] Basophils/100 WBC (Bld) 0.3 % Normal 0.0-1.0 [facility] Comment on above: Performed By: #### L VI9551, MBI6044, ZJI6412, HER4471, HUX1831, HQI0493 #### [place] [address] Differential type Auto Normal [facility] Comment on above: Performed By: #### L EH2580, VWS7800, UCM9016, ILJ6606, JKO2400, QUI1959 #### [place] [address] Eosinophils (Bld) [#/Vol] 0.0 10*3/uL Normal 0.0-0.5 [facility] Comment on above: Performed By: #### L FU6464, RPR3728, BFP6168, NDB4496, KYQ2134, XMX4117 #### [place] [address] Eosinophils/100 WBC (Bld) 0.0 % Low 0.3-5.0 [facility] Comment on above: Performed By: #### L [id number], IHC3657, TXJ5615, AFL7587, QPO2809, MYT0080 #### [place] [address] Erythrocyte distribution width (RBC) [Ratio] 16.3 % High 11.5-13.1 [facility] Comment on above: Performed By: #### L OZ7563, RFW8148, QFP7471, MSH5014, WQM5678, YTF5172 #### [place] [address] Hematocrit (Bld) [Volume fraction] 36.4 % Normal 33.0-51.0 [facility] Comment on above: Performed By: #### L HX4479, YOY4493, PDY5731, NCU1554, FNT5354, HIB9060 #### [place] [address] Hemoglobin (Bld) [Mass/Vol] 11.4 g/dL Low 12.0-16.0 [facility] Comment on above: Performed By: #### L PQ8377, DKY4815, RRT0003, EKA0548, KEN9450, VCB2955 #### [place] [address] Lymphocytes (Bld) [#/Vol] 3.3 10*3/uL Normal 1.1-5.0 [facility] Comment on above: Performed By: #### L JW8390, WRF3611, JJS5928, KRQ3279, ZYK2869, PWY5521 #### [place] [address] Lymphocytes/100 WBC (Bld) 19.3 % Low 24.0-44.0 [facility] Comment on above: Performed By: #### L OS8808, UDD6779, XOY4360, ORM2820, CZW8613, CCR6566 #### [place] [address] MCH (RBC) [Entitic mass] 27.1 pg Normal 26.0-34.0 [facility] Comment on above: Performed By: #### L RG7904, JMG4789, YTV8146, PZO8884, SGV0560, RNQ9141 #### [place] [address] MCHC (RBC) [Mass/Vol] 31.5 g/dL Low 32.0-36.0 [facility] Comment on above: Performed By: #### L EM2894, ANF0992, AQS9616, YIQ2145, QWU0918, EBP7274 #### [place] [address] MCV (RBC) [Entitic vol] 86.1 fL Normal 80.0-100.0 [facility] Comment on above: Performed By: #### L RY9948, YAM2011, RAG4353, IZP7275, RLM3986, GGN9529 #### [place] [address] Monocytes (Bld) [#/Vol] 1.0 10*3/uL Normal 0.0-1.4 [facility] Comment on above: Performed By: #### L RJ4879, CEI7441, IEZ2198, GLT2862, DPZ2671, SOH7040 #### [address] [address] Monocytes/100 WBC (Bld) 5.7 % Normal 2.1-13.3 K [facility] Comment on above: Performed By: #### L YF2295, TAT0591, ULV2933, IZX9167, YLR3580, CWV2865 #### [address] [address] Neutrophils, Abs. 12.8 10*3/uL High 1.5-8.5 [facility] Comment on above: Performed By: #### L NG3299, NTD7667, AAQ9665, LUD7225, HXB8585, BKN7785 #### [place] [address] Neutrophils/100 WBC (Bld) 74.7 % High 35.0-66.0 [facility] Comment on above: Performed By: #### L SH2027, XJT3559, QUM5040, UZF6996, UNX5240, NVR3998 #### [place] [address] Platelet Cnt 285 10*3/uL Normal 150-450 [facility] Comment on above: Performed By: #### L OY1326, THW4045, IEK1187, TEZ6002, CYC8316, NRR3852 #### [place] [address] Platelet mean volume (Bld) [Entitic vol] 10.3 fL High 6.5-10.0 [facility] Comment on above: Performed By: #### L PC6701, IAG1600, IAB5835, RNR1196, YWP3519, WKM7399 #### [place] [address] RBC (Bld) [#/Vol] 4.23 10*6/uL Normal 4.00-5.20 [facility] Comment on above: Performed By: #### L GX2560, SXX6380, CFT1064, GAF8321, SUC2823, UQH8302 #### [address] [address] WBC (Bld) [#/Vol] 17.1 10*3/uL High 4.5-11.0 [facility] Comment on above: Performed By: #### L LU6441, BED7953, HOQ6796, BFF3937, RNH5080, YBH4956 #### [place] [address] COMPREHENSIVE METABOLIC PANE Todd 05-29-2020 Albumin [Mass/Vol] 4.1 g/dL Normal 3.2-5.0 [facility] Comment on above: Performed By: #### L AZ5308, TXX9840, AXN3680, GQZ8223, KTG1442, SQF8009 #### [place] [address] Albumin/Globulin [Mass ratio] 1.3 {ratio} Normal [facility] Comment on above: Performed By: #### L UZ4400, VGB6221, BOI3341, QSV9499, WVA3691, VSS7561 #### [place] [address] ALP [Catalytic activity/Vol] 69 U/L Normal 42-121 [facility] Comment on above: Performed By: #### L FS0672, UNI3195, LDJ6847, PBY0678, WCU0535, BEY6559 #### [place] [address] ALT [Catalytic activity/Vol] 26 U/L Normal 10-60 [facility] Comment on above: Performed By: #### L IB6596, GRN7912, XUG4097, BYD0733, JMB4196, NJE9624 #### [place] [address] Anion gap [Moles/Vol] 10 mmol/L Normal [facility] Comment on above: Performed By: #### L ZB7446, QIY8418, XCP5379, WBV0326, NHT1852, YIK5172 #### [place] [address] AST [Catalytic activity/Vol] 23 U/L Normal 10-42 [facility] Comment on above: Performed By: #### L LY6166, WQE1879, GAJ2077, NEM2047, MMG7466, JIS7551 #### [place] [address] B/C 21 High 10-20 [facility] Comment on above: Performed By: #### L QC9888, SXR6372, QDK8838, FKP4085, HXJ0884, CXH8769 #### [place] [address] Bilirubin.direct [Mass/Vol] 0.3 mg/dL Normal 0.2-1.0 [facility] Comment on above: Performed By: #### L VJ1401, ZVM0560, MOU8027, DZM2037, DUL9878, KXR5369 #### [place] [address] Calcium [Mass/Vol] 8.9 mg/dL Normal 8.5-10.5 [facility] Comment on above: Performed By: #### L ZY5746, NNU3895, TPH2119, ZTT6124, PNE8087, OCJ4248 #### [place] [address] Chloride [Moles/Vol] 105 mmol/L Normal 101-111 [facility] Comment on above: Performed By: #### L CQ5120, HDG8469, RTQ9913, FLN3879, MDU4575, QHJ3510 #### [place] [address] CO2 [Moles/Vol] 27 mmol/L Normal 21-31 [facility] Comment on above: Performed By: #### L UM9080, MYD5229, RES9418, GXT0950, LBN2163, KMJ2748 #### [place] [address] Creatinine [Mass/Vol] 0.7 mg/dL Normal 0.4-1.0 [facility] Comment on above: Performed By: #### L NK6968, FPX6275, ELO8760, PBQ4685, CHM2578, SMG2022 #### [facility] [place] [facility] [address] [place] [address] GFR/1.73 sq M.predicted MDRD (S/P/Bld) [Vol rate/Area] mL/min/{1.73_m2} Normal [facility] Comment on above: Result Comment: *The estimated Glomerular Filtration Rate(EGFR) may not be accurate for children under the age of 18 yrs. To estimate the GFR for -Americans multiply the result provided by 1.21. Stage 1 90 mL/min or greater Stage 2 60-89 mL/min Stage 3 30-59 mL/min Stage 4 15-29 mL/min Stage 5 14 mL/min or less Performed By: #### L RW6798, CFW2897, XZI2787, PVF0036, MVG5959, AZW9517 #### [place] [address] Glucose [Mass/Vol] 112 mg/dL High 70-110 [facility] Comment on above: Performed By: #### L TQ9820, ZOV4315, XDO1561, JNU5436, RTX3226, KWY2522 #### [place] [address] Osmolality [Osmolality] 285 mosm/kg Normal 266-309 [facility] Comment on above: Performed By: #### L BD3974, VJF6545, KQR9737, JMM4695, XCR1729, VEM0549 #### [place] [address] Potassium [Moles/Vol] 4.7 mmol/L Normal 3.6-5.0 [facility] Comment on above: Performed By: #### L GV0780, WGO9362, LST4665, VWY5356, ZZR1503, LOE4467 #### [address] [address] Protein [Mass/Vol] 7.2 g/dL Normal 6.7-8.2 [facility] Comment on above: Performed By: #### L HH7321, ZFR2189, YZW3783, JBI9645, KUJ2582, OFU7907 #### [address] [address] Sodium [Moles/Vol] 142 mmol/L Normal 135-145 [facility] Comment on above: Performed By: #### L DV5761, EDW2175, RZV8358, OZX9681, PQF2248, PBM5488 #### [place] [address] Urea nitrogen [Mass/Vol] 15 mg/dL Normal 6-20 [facility] Comment on above: Performed By: #### L JV3651, YPL7786, BPH3158, SCJ8599, EAR4169, SRF9813 #### [place] [address] HEPATITIS PANEL ACUTEon - HEPATITIS C AB Negative Normal Negative [facility] Comment on above: Performed By: #### L PB3149, EJO3980, VGW8373, KHF2287, CZF9485, CBE6317 #### [place] [address] HEP B CORE AB IGM Negative Normal Negative [facility] Comment on above: Performed By: #### L UO8902, EKZ9878, YEL1765, CLH0985, DOC5108, ZCC2535 #### [place] [address] HEPATITIS A AB IGM Negative Normal Negative [facility] Comment on above: Performed By: #### L LL7563, FDT9595, ONP2189, DWV6537, DCU1552, DJN2308 #### [place] [address] HEP B SURFACE AG Negative Normal Negative [facility] Comment on above: Performed By: #### L BO4917, WQN0201, VLX9681, IMZ4645, MED1265, QUZ4664 #### [place] [address] HIV 1, 2 AB SCRNon 1 HIV 1, 2 AB SCRN Negative Normal Negative [facility] Comment on above: Performed By: #### L BM4364, BYQ3314, GEN4547, JME3119, YDI9169, IJY9464 #### [address] [place] [address] LIPID PANELon 05-29-2020 Cholesterol [Mass/Vol] 221 mg/dL High 10-200 [facility] Comment on above: Performed By: #### L DW7308, WGC7192, RTI8999, CTA7562, PYZ3205, EPI0762 #### [facility] [address] [place] [address] Cholesterol in HDL [Mass/Vol] 60.0 mg/dL Normal 29.0-89.0 [facility] Comment on above: Performed By: #### L RZ8958, ADF4558, YZV7619, SJJ9257, THH4568, AFN2048 #### [facility] [address] [place] [address] Cholesterol in LDL [Mass/Vol] 141.8 mg/dL Normal [facility] Comment on above: Result Comment: CAP STANDARDIZED LDL-CHOLESTEROL VALUES <130-DESIRABLE 130-159 BORDERLINE/HIGH RISK >160-HIGH RISK Performed By: #### L UW9636, EIZ2041, CYP0677, AVK0052, BQK0134, INB9449 #### [facility] [address] [place] [address] Cholesterol in VLDL [Mass/Vol] 19.2 mg/dL Normal [facility] Comment on above: Performed By: #### L XC6950, ACV6666, WNU7352, AXG9787, LAI7908, WPX6534 #### [facility] [address] [place] [address] RISK 1, FEMALE 3.68 Normal [facility] Comment on above: Result Comment: TOTA L CHOL/HDL 1/2 AVERAGE 3.27 AVERAGE 4.44 2 X AVERAGE 7.05 3 X AVERAGE 11.04 Performed By: #### L BH3495, BFP8921, YPO8859, NZN7712, HRC7265, PPX6214 #### [facility] [address] [place] [address] RISK 1, MALE 3.68 Normal [facility] Comment on above: Result Comment: TOTA L CHOL/HDL 1/2 AVERAGE 3.43 AVERAGE 4.97 2 X AVERAGE 9.55 3 X AVERAGE 23.39 Performed By: #### L CV3817, BHU5483, AGL8286, DPW6330, XFA0503, NJC4586 #### [place] [address] RISK 2, FEMALE 2.36 Normal [facility] Comment on above: Result Comment: LDL/ HDL 1/2 AVERAGE 1.47 AVERAGE 3.22 2 X AVERAGE 5.03 3 X AVERAGE 6.14 Performed By: #### L XQ7189, QVD0654, SVM3633, ABS5018, QYX7860, GWF1066 #### [place] [address] RISK 2, MALE 2.36 Normal [facility] Comment on above: Result Comment: LDL/ HDL 1/2 AVERAGE 1.00 AVERAGE 3.55 2 X AVERAGE 6.25 3 X AVERAGE 7.99 Performed By: #### L YL8707, GQB1122, VCY0953, LCZ9257, CUS9224, IIT5693 #### [place] [address] Triglyceride [Mass/Vol] 96 mg/dL Normal 46-236 [facility] Comment on above: Performed By: #### L AU9229, MAZ3177, PBF8022, FSP3560, HTC2629, XXH6868 #### [place] [address] TEST, SERUMon 05-05 TEST, SERUM Negative Normal NEGATIVE [facility] Comment on above: Performed By: #### L GY3161 #### [place] [address] URINALYSISon 05-29-2020 UR BACTERIA None Seen Normal NONE SEEN [facility] Comment on above: Performed By: #### L HQ6482 #### [place] [address] UR BILIRUBIN Negative Normal NEGATIVE [facility] Comment on above: Performed By: #### L BZ9317 #### [place] [address] UR BLOOD Negative Normal NEGATIVE [facility] Comment on above: Performed By: #### L ES0257 #### [facility] [address] [place] [address] UR CLARITY Clear Normal CLEAR [facility] Comment on above: Performed By: #### L NK4820 #### [facility] [address] [place] [address] UR COLOR Light-Yellow Normal YELLOW [facility] Comment on above: Performed By: #### L BZ2309 #### [facility] [address] [place] [address] UR GLUCOSE Normal Normal NEGATIVE [facility] Comment on above: Performed By: #### L HY1376 #### [facility] [address] [place] [address] UR HYALINE CAST 1 - 3 Normal NONE SEEN [facility] Comment on above: Performed By: #### L JH8517 #### [facility] [address] [place] [address] UR KETONE Negative Normal NEGATIVE [facility] Comment on above: Performed By: #### L HN6797 #### [facility] [address] [place] [address] UR LEUKOCYTE Negative Normal NEGATIVE [facility] Comment on above: Performed By: #### L KM7008 #### [facility] [address] [place] [address] UR MUCOUS Rare Normal NONE SEEN [facility] Comment on above: Performed By: #### L XE2395 #### [facility] [address] [place] [address] UR NITRITE Negative Normal NEGATIVE [facility] Comment on above: Performed By: #### L SD9845 #### [facility] [address] [place] [address] UR NON-SQUAMOUS EPI < 1 Normal NONE SEEN [facility] Comment on above: Performed By: #### L AG3430 #### [facility] [address] [place] [address] UR PH 6.0 Normal 5.0-9.0 [facility] Comment on above: Performed By: #### L RR9233 #### [facility] [place] [facility] [address] [place] [address] UR PROTEIN Negative Normal NEGATIVE [facility] Comment on above: Performed By: #### L BQ1867 #### [facility] [place] [facility] [address] [place] [address] UR RBC 1 - 3 Normal 1-3 [facility] Comment on above: Performed By: #### L DD6799 #### [facility] [address] [place] [address] UR SP GRAVITY 1.023 Normal 1.005-1.030 [facility] Comment on above: Performed By: #### L LH3026 #### [facility] [address] [place] [address] UR SQUAMOUS EPI 11 - 20 Abnormal 3-5 [facility] Comment on above: Performed By: #### L VT9396 #### [facility] [address] [place] [address] UR UROBILINOGEN Normal Normal <2.0 [facility] Comment on above: Performed By: #### L JC3530 #### [facility] [address] [place] [address] UR WBC 4 - 5 Normal 1-3 [facility] Comment on above: Performed By: #### L VU0944 #### [facility] [address] [place] [address] FINGER LT MINIMUM 2 VIEWSon 06-24-2019 FINGER [...] little finger. Findings could be related to advancedANDnbsp;erosi ve arthritis althoughANDnbsp;septi c joint should be considered. Report electronically signed by: Ramon Liang MD on Jun 23, 01:23 PM Final Report Normal [facility] Urine Cultureon 09-12-2018 Bacteria identified Cx Nom (U) No growth at 100 CFU/ml or greater Normal [facility] Comment on above: Performed By: #### U RC #### [facility] Dr. Dimitri Herron MD [address] [place] [address] Basic Metabolic Panelon 09-01 Creatinine [Mass/Vol] 0.888 mg/dL Normal 0.550-1.020 [facility] Comment on above: Performed By: #### B MP #### [facility] Dr. Dimitri Herron MD [address] [place] [address] GFR/1.73 sq M predicted among non-blacks MDRD (S/P/Bld) [Vol rate/Area] 74 mL/min/{1.73_m2} Normal [facility] Comment on above: Result Comment: K/DO QI [...] [facility] Dr. Dimitri Herron MD [address] [place] [address] Calcium [Mass/Vol] 7.9 mg/dL Low 8.5-10.1 [facility] Comment on above: Performed By: #### B MP #### [facility] Dimitri Herron MD [facility] [place] [address] CO2 [Moles/Vol] 28.0 mmol/L Normal 21.0-32.0 [facility] Comment on above: Performed By: #### B MP #### [facility] Dr. Dimitri Herron MD [address] [place] [address] Glucose [Mass/Vol] 132 mg/dL High 74-106 [facility] Comment on above: Performed By: #### B MP #### [facility]. Dimitri Herron MD [address] [place] [address] Urea nitrogen [Mass/Vol] 9 mg/dL Normal 7-18 [facility] Comment on above: Performed By: #### B MP #### [facility] Dr. Dimitri Herron MD [address] [place] [address] Chloride [Moles/Vol] 105 mmol/L Normal 100-108 [facility] Comment on above: Performed By: #### B MP #### [facility] Dr. Dimitri Herron MD [address] [place] [address] Potassium [Moles/Vol] 3.2 mmol/L Low 3.5-5.1 [facility] Comment on above: Performed By: #### B MP #### [facility] [place] [address] [place] [address] Sodium [Moles/Vol] 139 mmol/L Normal 136-145 [facility] Comment on above: Performed By: #### B MP #### [facility] Dr. Dimitri Herron MD [address] [place] [address] CBC With Platelet and Differ entialon 09-11-2018 Abs. Basophils 0.05 10*3/uL Normal 0.00-0.10 [facility] Comment on above: Performed By: #### C BC #### [facility] Dr. Dimitri Herron MD [address] [place] [address] Abs. Neutrophils 5.14 10*3/uL Normal 1.70-7.00 [facility] Comment on above: Performed By: #### C BC #### [facility] Dr. Dimitri Herron MD [address] [place] [address] Basophils/100 WBC (Bld) 0.6 % Normal 0.0-1.3 S [facility] Comment on above: Performed By: #### C BC #### [facility] Dr. Dimitri Herron MD [address] [place] [address] Differential Automated Normal [facility] Comment on above: Performed By: #### C BC #### [facility] Dr. Dimitri Herron MD [address] [place] [address] Eosinophils (Bld) [#/Vol] 0.15 10*3/uL Normal 0.00-0.50 [facility] Comment on above: Performed By: #### C BC #### [facility] Dr. Dimitri Herron MD [address] [place] [address] Eosinophils/100 WBC (Bld) 1.8 % Normal 0.0-5.8 [facility] Comment on above: Performed By: #### C BC #### [facility]. Dimitri Herron MD [address] [place] [address] Erythrocyte distribution width (RBC) [Ratio] 15.3 % High 11.6-14.8 [facility] Comment on above: Performed By: #### C BC #### [facility] Dimitri Herron MD [facility] [address] [place] [address] Hematocrit (Bld) [Volume fraction] 41.6 % Normal 35.4-47.9 [facility] Comment on above: Performed By: #### C BC #### [facility] Dr. Dimitri Herron MD [address] [place] [address] Hemoglobin (Bld) [Mass/Vol] 13.3 g/dL Normal 11.9-16.0 [facility] Comment on above: Performed By: #### C BC #### [facility] Dr. Dimitri Herron MD [address] [place] [address] Lymphocytes (Bld) [#/Vol] 2.52 10*3/uL Normal 0.80-3.30 [facility] Comment on above: Performed By: #### C BC #### [facility] Dr. Dimitri Herron MD [address] [place] [address] Lymphocytes/100 WBC (Bld) 29.5 % Normal 13.4-45.1 [facility] Comment on above: Performed By: #### C BC #### [facility] Dr. Dimitri Herron MD [address] [place] [address] MCH (RBC) [Entitic mass] 27.5 pg Normal 27.2-33.0 [facility] Comment on above: Performed By: #### C BC #### [facility]. Dimitri Herron MD [address] [place] [address] MCHC (RBC) [Mass/Vol] 32.0 g/dL Normal 31.9-35.1 [facility] Comment on above: Performed By: #### C BC #### [facility]. Dimitri Herron MD [address] [place] [address] MCV (RBC) [Entitic vol] 86.0 fL Normal 82.1-97.1 [facility] Comment on above: Performed By: #### C BC #### [facility] Dr. Dimitri Herron MD [address] [place] [address] Monocytes (Bld) [#/Vol] 0.67 10*3/uL Normal 0.30-0.90 [facility] Comment on above: Performed By: #### C BC #### [facility] Dr. Dimitri Herron MD [address] [place] [address] Monocytes/100 WBC (Bld) 7.8 % Normal 4.0-12.7 [facility] Comment on above: Performed By: #### C BC #### [facility] Dr. Dimitri Herron MD [address] [place] [address]65[address] Neutrophils/100 WBC (Bld) 60.1 % Normal 41.1-75.9 [facility] Comment on above: Performed By: #### C BC #### [facility] Dr. Dimitri Herron MD [address] [place] [address] Platelet mean volume (Bld) [Entitic vol] 11.4 fL Normal 8.6-12.2 [facility] Comment on above: Performed By: #### C BC #### [facility] Dr. Dimitri Herron MD [address] [place] [address] Platelets (Bld) [#/Vol] 282 10*3/uL Normal 133-425 [facility] Comment on above: Performed By: #### C BC #### [facility] Dr. Dimitri Herron MD [address] [place] [address]17[address] RBC (Bld) [#/Vol] 4.84 10*6/uL Normal 3.40-5.40 [facility] Comment on above: Performed By: #### C BC #### [facility] Dimitri Herron MD [facility] [address] [place] [address] WBC (Bld) [#/Vol] 8.6 10*3/uL Normal 4.5-11.0 Jorge [facility] Comment on above: Performed By: #### C BC #### [facility] Dr. Dimitri Herron MD [address] [place] [address] ABDOMEN AND PELVIS W/O CO NTRASTon [...] Date/time: 09-11-2018, 03:06 AM Final Report Normal [facility] Serum Preg-Qualitativeon Serum Preg-Qualitative Negative Normal Negative [facility] Comment on above: Performed By: #### B SS #### [facility]. Dimitri Herron MD [address] [place] [address] UA Micro Reflex to Cultureon 09-11-2018 Red Blood Cells (Urine) 4 [HPF] Normal 0-5 [facility] Comment on above: Performed By: #### [place] #### [facility]. Dimitri Herron MD [address] [place] [address] Bacteria LM.HPF (Urine sed) [#/Area] Occasional Abnormal None [facility] Comment on above: Performed By: #### U [place] #### [facility] Dimitri Herron MD [address] [place] [address] 397[address] Epithelial cells.squamous LM.HPF (Urine sed) [#/Area] 9 [HPF] High 0-4 [facility] Comment on above: Performed By: #### U [place] #### [facility]. Dimitri Herron MD [address] [place] [address] 80078 Hyaline Cast 4 Normal 0-5 [facility] Comment on above: Performed By: #### U [place] #### [facility]. Dimitri Herron MD [address] [place] [address] 83492 White Blood Cells (Urine) 15 [HPF] High 0-4 [facility] Comment on above: Performed By: #### U [place] #### [facility]. Dimitri Herron MD [address] [place] [address]77 Appearance (U) Cloudy Abnormal Clear [facility] Comment on above: Performed By: #### U [place] #### [facility]. Dimitri Herron MD [address] [place] [address] [phone] (20 Bilirubin [Mass/Vol] Negative Normal Negative [facility] Comment on above: Performed By: #### U [place] #### [facility]. Dimitri Herron MD [address] [place] [address]68 (77 Blood (Urine) Trace Abnormal Negative [facility] Comment on above: Performed By: #### U [place] #### [facility]. Dimitri Herron MD [address] [place] [address] 64948 Color (U) Yellow Normal Yellow [facility] Comment on above: Performed By: #### [place] #### [facility] Dimitri Herron MD [address] [place] [address]34 (24 Glucose [Mass/Vol] Negative Normal Negative [facility] Comment on above: Performed By: #### [place] #### [facility] Dimitri Herron MD [address] [place] [address] 51229 Ketones Ql (U) Negative Normal Negative [facility] Comment on above: Performed By: #### [place] #### [facility] Dimitri Herron MD [address] [place] [address] 86142 Leukocyte esterase Test strip Ql (U) Negative Normal Negative [facility] Comment on above: Performed By: #### [place] #### [facility]. Dimitri Herron MD [address] [place] [address] 35021 Nitrite Ql (U) Negative Normal Negative [facility] Comment on above: Performed By: #### [place] #### [facility]. Dimitri Herron MD [address] [place] [address] 37692 pH (U) 7.0 [pH] Normal <=7.5 [facility] Comment on above: Performed By: #### [place] #### [facility] Dr. Dimitri Herron MD [address] [place] [address] 55662 Protein (U) [Mass/Vol] Trace Abnormal Negative [facility] Comment on above: Performed By: #### [place] #### [facility] Dimitri Herron MD [address] [place] [address] 93655 Specific gravity (U) [Rel density] 1.016 Normal 1.005-1.025 [facility] Comment on above: Performed By: #### [place] #### [facility] Dimitri Herron MD [address] [place] [address] 29595 Urobilinogen Qn (U) 0.2 Normal 0-2.0 [facility] Comment on above: Performed By: #### [place] #### [facility] Dimitri Herron MD [address] [place] [address] 21620 Urine Type Clean catch Normal [facility] Comment on above: Performed By: #### [place] #### [facility] Dimitri Herron MD [address] [place] [address] 92054 Urine culture routine Bacteria identified Cx Nom (U) [facility] Work Phone: Vital Signs Date Time Vital Sign Value Performing Clinician Facility 02-07-2025 16:01-0500 Body height 165.1 cm Carter Thomson MD Work Phone: [facility] 02-07-2025 16:01-0500 Body mass index (BMI) [Ratio] 39.61 kg/m2 Carter Thomson MD Work Phone: [facility] 02-07-2025 16:01-0500 Body temperature 97.7 [degF] Carter Thomson MD Work Phone: [facility] 02-07-2025 16:01-0500 Body weight 107.96 kg Carter Thomson MD Work Phone: [facility] 02-07-2025 16:01-0500 Diastolic blood pressure 66 mm[Hg] Carter Thomson MD Work Phone: [facility] 02-07-2025 16:01-0500 Heart rate 78 /min Carter Thomson MD Work Phone: [facility] 02-07-2025 16:01-0500 Systolic blood pressure 129 mm[Hg] Carter Thomson MD Work Phone: [facility] 01-19-2025 11:21-0400 Body temperature 98 [degF] [facility] 01-19-2025 11:21-0400 Diastolic blood pressure 89 mm[Hg] [facility] 01-19-2025 11:21-0400 Heart rate 82 /min [facility] 01-19-2025 11:21-0400 Respiratory rate 18 /min [facility] 01-19-2025 11:21-0400 SaO2% (BldA) [Mass fraction] 100 % [facility] 01-19-2025 11:21-0400 Systolic blood pressure 142 mm[Hg] [facility] 01-19-2025 09:22-0400 Body height 165.1 cm [facility] 12-13-2024 16:13-0400 Diastolic blood pressure 100 mm[Hg] Carter Thomson MD Work Phone: [facility] Comment on above: manual 12-13-2024 16:13-0400 Systolic blood pressure 156 mm[Hg] Carter Thomson MD Work Phone: [facility] Comment on above: manual 12-13-2024 15:33-0400 Body height 165.1 cm Carter Thomson MD Work Phone: [facility] 12-13-2024 15:33-0400 Body mass index (BMI) [Ratio] 40.52 kg/m2 Carter Thomson MD Work Phone: [facility] 12-13-2024 15:33-0400 Body temperature 97.7 [degF] Carter Thomson MD Work Phone: [facility] 12-13-2024 15:33-0400 Body weight 110.45 kg Carter Thomson MD Work Phone: [facility] 12-13-2024 15:33-0400 Heart rate 78 /min Carter Thomson MD Work Phone: [facility] 10-11-2024 15:51-0400 Body height 165.1 cm Carter Thomson MD Work Phone: [facility] 10-11-2024 15:51-0400 Body mass index (BMI) [Ratio] 40.5 kg/m2 Carter Thomson MD Work Phone: [facility] 10-11-2024 15:51-0400 Body temperature 97.7 [degF] Carter Thomson MD Work Phone: [facility] 10-11-2024 15:51-0400 Body weight 110.41 kg Carter Thomson MD Work Phone: [facility] 10-11-2024 15:51-0400 Diastolic blood pressure 69 mm[Hg] Carter Thomson MD Work Phone: [facility] 10-11-2024 15:51-0400 Heart rate 71 /min Carter Thomson MD Work Phone: [facility] 10-11-2024 15:51-0400 Systolic blood pressure 120 mm[Hg] Carter Thomson MD Work Phone: [facility] 09-27-2024 15:05-0400 Body height 165.1 cm Carter Thomson MD Work Phone: [facility] 09-27-2024 15:05-0400 Body mass index (BMI) [Ratio] 40.77 kg/m2 Carter Thomson MD Work Phone: [facility] 09-27-2024 15:05-0400 Body temperature 97.9 [degF] Carter Thomson MD Work Phone: [facility] 09-27-2024 15:05-0400 Body weight 111.13 kg Carter Thomson MD Work Phone: [facility] 09-27-2024 15:05-0400 Diastolic blood pressure 75 mm[Hg] Carter Thomson MD Work Phone: [facility] 09-27-2024 15:05-0400 Heart rate 72 /min Carter Thomson MD Work Phone: [facility] 09-27-2024 15:05-0400 Systolic blood pressure 113 mm[Hg] Carter Thomson MD Work Phone: [facility] 09-20-2024 11:19-0400 Body temperature 97.8 [degF] No Primary Care Physician [facility] 09-20-2024 11:19-0400 Diastolic blood pressure 62 mm[Hg] No Primary Care Physician [facility] 09-20-2024 11:19-0400 Heart rate 78 /min No Primary Care Physician [facility] 09-20-2024 11:19-0400 Respiratory rate 19 /min No Primary Care Physician [facility] 09-20-2024 11:19-0400 SaO2% (BldA) [Mass fraction] 99 % No Primary Care Physician [facility] 09-20-2024 11:19-0400 Systolic blood pressure 124 mm[Hg] No Primary Care Physician [facility] 09-20-2024 08:45-0400 Body height 165.1 cm No Primary Care Physician [facility] 09-20-2024 08:45-0400 Body mass index (BMI) [Ratio] 41 kg/m2 No Primary Care Physician [facility] 09-20-2024 08:45-0400 Body weight 111.81 kg No Primary Care Physician [facility] 07-07-2024 13:58-0400 Body temperature 96.1 [degF] No Primary Care Physician [facility] 07-07-2024 13:58-0400 Diastolic blood pressure 101 mm[Hg] No Primary Care Physician [facility] 07-07-2024 13:58-0400 Heart rate 65 /min No Primary Care Physician [facility] 07-07-2024 13:58-0400 Respiratory rate 17 /min No Primary Care Physician [facility] 07-07-2024 13:58-0400 SaO2% (BldA) [Mass fraction] 96 % No Primary Care Physician [facility] 07-07-2024 13:58-0400 Systolic blood pressure 155 mm[Hg] No Primary Care Physician [facility] 07-07-2024 11:54-0400 Body height 165.1 cm No Primary Care Physician [facility] 07-07-2024 11:54-0400 Body mass index (BMI) [Ratio] 41.5 kg/m2 No Primary Care Physician [facility] 07-07-2024 11:54-0400 Body weight 113.44 kg No Primary Care Physician [facility] 06-06-2023 13:53-0500 Body height 165.1 cm DO Chago Edwards Work Phone: [facility] 06-06-2023 13:53-0500 Body mass index (BMI) [Ratio] 36.2 kg/m2 DO Chago Edwards Work Phone: [facility] 06-06-2023 13:53-0500 Body weight 98.7 kg DO Chago Edwards Work Phone: [facility] 06-06-2023 13:53-0500 Diastolic blood pressure 92 mm[Hg] DO Chago Edwards Work Phone: [facility] 06-06-2023 13:53-0500 Heart rate 90 /min DO Chago Edwards Work Phone: [facility] 06-06-2023 13:53-0500 SaO2% (BldA) [Mass fraction] 92 % DO Chago Edwards Work Phone: [facility] 06-06-2023 13:53-0500 Systolic blood pressure 145 mm[Hg] DO Chago Edwards Work Phone: [facility] 05-15-2023 09:15-0500 Diastolic blood pressure 75 mm[Hg] DO Chago Edwards Work Phone: [facility] 05-15-2023 09:15-0500 Heart rate 75 /min DO Chago Edwards Work Phone: [facility] 05-15-2023 09:15-0500 Respiratory rate 18 /min DO Chago Edwards Work Phone: [facility] 05-15-2023 09:15-0500 SaO2% (BldA) [Mass fraction] 95 % DO Chago Edwards Work Phone: [facility] 05-15-2023 09:15-0500 Systolic blood pressure 128 mm[Hg] DO Chago Edwards Work Phone: [facility] 05-15-2023 07:48-0500 Body height 165.1 cm DO Chago Edwards Work Phone: [facility] 05-15-2023 07:48-0500 Body weight 89.36 kg DO Chago Edwards Work Phone: [facility] 05-15-2023 07:43-0500 Body temperature 97.6 [degF] DO Chago Edwards Work Phone: [facility] 04-17-2023 09:45-0500 Diastolic blood pressure 69 mm[Hg] DO Chago Edwards Work Phone: [facility] 04-17-2023 09:45-0500 Heart rate 71 /min DO Chago Edwards Work Phone: [facility] 04-17-2023 09:45-0500 Respiratory rate 20 /min DO Chago Edwards Work Phone: [facility] 04-17-2023 09:45-0500 SaO2% (BldA) [Mass fraction] 95 % DO Chago Edwards Work Phone: [facility] 04-17-2023 09:45-0500 Systolic blood pressure 115 mm[Hg] DO Chago Edwards Work Phone: [facility] 04-17-2023 08:39-0500 Body height 165.1 cm DO Chago Edwards Work Phone: [facility] 04-17-2023 08:39-0500 Body weight 105 kg DO Chago Edwards Work Phone: [facility] 04-17-2023 08:36-0500 Body temperature 97.4 [degF] DO Chago Edwards Work Phone: [facility] 03-26-2023 13:15-0500 Body height 165 cm DO Chago Edwards Work Phone: [facility] 03-26-2023 13:15-0500 Body mass index (BMI) [Ratio] 35.4 kg/m2 DO Chago Edwards Work Phone: [facility] 03-26-2023 13:15-0500 Body temperature 98.3 [degF] DO Chago Edwards Work Phone: [facility] 03-26-2023 13:15-0500 Body weight 96.3 kg DO Chago Edwards Work Phone: [facility] 03-26-2023 13:15-0500 Diastolic blood pressure 83 mm[Hg] DO Chago Edwards Work Phone: [facility] 03-26-2023 13:15-0500 Heart rate 75 /min DO Chago Edwards Work Phone: [facility] 03-26-2023 13:15-0500 Respiratory rate 18 /min DO Chago Edwards Work Phone: [facility] 03-26-2023 13:15-0500 SaO2% (BldA) [Mass fraction] 96 % DO Chago Edwards Work Phone: [facility] 03-26-2023 13:15-0500 Systolic blood pressure 127 mm[Hg] DO Chago Edwards Work Phone: [facility] 03-14-2023 14:13-0500 Body height 165.1 cm DO Chago Edwards Work Phone: [facility] 03-14-2023 14:13-0500 Body mass index (BMI) [Ratio] 36.2 kg/m2 DO Chago Edwards Work Phone: [facility] 03-14-2023 14:13-0500 Body weight 98.8 kg DO Chago Edwards Work Phone: [facility] 03-14-2023 14:13-0500 Diastolic blood pressure 95 mm[Hg] DO Chago Edwards Work Phone: [facility] 03-14-2023 14:13-0500 Heart rate 78 /min DO Chago Edwards Work Phone: [facility] 03-14-2023 14:13-0500 Systolic blood pressure 151 mm[Hg] DO Chago Edwards Work Phone: [facility] 01-06-2023 00:31-0400 Diastolic blood pressure 92 mm[Hg] DO Chago Edwards Work Phone: [facility] 01-06-2023 00:31-0400 Heart rate 81 /min DO Chago Edwards Work Phone: [facility] 01-06-2023 00:31-0400 Respiratory rate 17 /min DO Chago Edwards Work Phone: [facility] 01-06-2023 00:31-0400 SaO2% (BldA) [Mass fraction] 98 % DO Chago Edwards Work Phone: [facility] 01-06-2023 00:31-0400 Systolic blood pressure 135 mm[Hg] DO Chago Edwards Work Phone: [facility] 01-05-2023 20:20-0400 Body height 165.1 cm DO Chago Edwards Work Phone: [facility] 01-05-2023 20:20-0400 Body mass index (BMI) [Ratio] 36.6 kg/m2 DO Chago Edwards Work Phone: [facility] 01-05-2023 20:20-0400 Body temperature 98.3 [degF] DO Chago Edwards Work Phone: [facility] 01-05-2023 20:20-0400 Body weight 100 kg DO Chago Edwards Work Phone: [facility] 01-03-2023 19:43-0400 Body height 165.1 cm DO Chago Edwards Work Phone: [facility] 01-03-2023 19:43-0400 Body mass index (BMI) [Ratio] 36.8 kg/m2 DO Chago Edwards Work Phone: [facility] 01-03-2023 19:43-0400 Body temperature 97.8 [degF] DO Chago Edwards Work Phone: [facility] 01-03-2023 19:43-0400 Body weight 100.4 kg DO Chago Edwards Work Phone: [facility] 01-03-2023 19:43-0400 Diastolic blood pressure 83 mm[Hg] DO Chago Edwards Work Phone: [facility] 01-03-2023 19:43-0400 Heart rate 97 /min DO Chago Edwards Work Phone: [facility] 01-03-2023 19:43-0400 Respiratory rate 18 /min DO Chago Edwards Work Phone: [facility] 01-03-2023 19:43-0400 SaO2% (BldA) [Mass fraction] 97 % DO Chago Edwards Work Phone: [facility] 01-03-2023 19:43-0400 Systolic blood pressure 132 mm[Hg] DO Chago Edwards Work Phone: [facility] 06-03-2022 00:55-0500 Diastolic blood pressure 76 mm[Hg] DO Chago Edwards Work Phone: [facility] 06-03-2022 00:55-0500 Heart rate 69 /min DO Chago Edwards Work Phone: [facility] 06-03-2022 00:55-0500 Respiratory rate 20 /min DO Chago Edwards Work Phone: [facility] 06-03-2022 00:55-0500 SaO2% (BldA) [Mass fraction] 98 % DO Chago Edwards Work Phone: [facility] 06-03-2022 00:55-0500 Systolic blood pressure 138 mm[Hg] DO Chago Edwards Work Phone: [facility] 06-02-2022 18:18-0500 Body height 165.1 cm DO Chago Edwards Work Phone: [facility] 06-02-2022 18:18-0500 Body mass index (BMI) [Ratio] 35.8 kg/m2 DO Chago Edwards Work Phone: [facility] 06-02-2022 18:18-0500 Body temperature 98 [degF] DO Chago Edwards Work Phone: [facility] 06-02-2022 18:18-0500 Body weight 97.72 kg DO Chgao Edwards Work Phone: [facility] 12-18-2021 00:35-0400 Diastolic blood pressure 86 mm[Hg] DO Chago Edwards Work Phone: [facility] Work Phone: 12-18-2021 00:35-0400 Heart rate 66 /min DO Chago Edwards Work Phone: [facility] Work Phone: 12-18-2021 00:35-0400 Respiratory rate 16 /min DO Chago Edwards Work Phone: [facility] Work Phone: 12-18-2021 00:35-0400 SaO2% (BldA) [Mass fraction] 96 % DO Chago Edwards Work Phone: [facility] Work Phone: 12-18-2021 00:35-0400 Systolic blood pressure 162 mm[Hg] DO Chago Edwards Work Phone: [facility] Work Phone: 12-17-2021 21:11-0400 Body height 165.1 cm DO Chago Edwards Work Phone: [facility] Work Phone: 12-17-2021 21:11-0400 Body mass index (BMI) [Ratio] 37.4 kg/m2 DO Chago Edwards Work Phone: [facility] Work Phone: 12-17-2021 21:11-0400 Body temperature 97.9 [degF] DO Chago Edwards Work Phone: [facility] Work Phone: 12-17-2021 21:11-0400 Body weight 102 kg DO Chago Edwards Work Phone: [facility] Work Phone: 04-14-2021 09:54-0500 Body height 165.1 cm DO Chago Edwards Work Phone: [facility] Work Phone: 04-14-2021 09:54-0500 Body mass index (BMI) [Ratio] 38.6 kg/m2 DO Chago Edwards Work Phone: [facility] Work Phone: 04-14-2021 09:54-0500 Body weight 105.23 kg DO Chago Edwards Work Phone: [facility] Work Phone: 04-14-2021 09:54-0500 Diastolic blood pressure 84 mm[Hg] DO Chago Edwards Work Phone: [facility] Work Phone: 04-14-2021 09:54-0500 Heart rate 76 /min DO Chago Edwards Work Phone: [facility] Work Phone: 04-14-2021 09:54-0500 Respiratory rate 14 /min DO Chago Edwards Work Phone: [facility] Work Phone: 04-14-2021 09:54-0500 SaO2% (BldA) [Mass fraction] 96 % DO Chago Edwards Work Phone: [facility] Work Phone: 04-14-2021 09:54-0500 Systolic blood pressure 145 mm[Hg] DO Chago Edwards Work Phone: [facility] Work Phone: Encounters Encounter Date Encounter Type Care Provider Facility Start: 02-07-2025 End: 02-07-2025 Office outpatient visit 15 minutes Farheen Edwards DO Work Phone: [facility] Comment on above: Type 2 diabetes erica itus with hyperglycemia, without long-term current use of insulin (HCC) (Primary Dx); Hypercholesteremia; Therapeutic drug monitoring; Strain of lumbar region, subsequent encounter; Heart palpitations Start: 02-07-2025 End: 02-07-2025 Refkhadijah Thomson MD Work Phone: [facility] Start: 02-05-2025 End: 02-05-2025 Refill Carter Thomson MD Work Phone: [facility] Comment on above: Type 2 diabetes erica itus with hyperglycemia, without long-term current use of insulin (HCC) Start: 01-24-2025 End: 01-24-2025 Refill Carter Thomson MD Work Phone: [facility] Start: 01-19-2025 End: 01-19-2025 Emergency department patient visit No Primary Care Physician Facility:[facility] Start: 12-27-2024 End: 12-27-2024 Krzysztof Thomson MD Work Phone: [facility] Start: 12-20-2024 End: 12-24-2024 Refill Carter Thomson MD Work Phone: [facility] Start: 12-13-2024 End: 12-13-2024 Office outpatient visit 15 minutes Maki Vela MD Work Phone: [facility] Comment on above: Type 2 diabetes erica itus with hyperglycemia, without long-term current use of insulin (HCC) (Primary Dx); Steatosis of liver; Smoking history; Encounter for screening mammogram for malignant neoplasm of breast; Lichen planus; Smoker; Essential hypertension Start: 12-13-2024 End: 12-13-2024 ambulatory MAKI VELA [facility] Start: 12-07-2024 End: 12-10-2024 Refkhadijah Thomson MD Work Phone: [facility] Start: 12-06-2024 End: 12-06-2024 ambulatory No Primary Care Physician -[facility] Start: 12-06-2024 End: 12-06-2024 Patient encounter procedure Ethan MCGUIRE -[facility] Work Phone: Start: 12-06-2024 End: 12-06-2024 ambulatory [facility] Facility:[facility] Start: 11-16-2024 End: 11-18-2024 Refill Paul Miranda MD Work Phone: [facility] Comment on above: Type 2 diabetes erica itus with hyperglycemia, without long-term current use of insulin (HCC); Steatosis of liver Start: 10-25-2024 End: 10-25-2024 Refill Carter Thomson MD Work Phone: [facility] Start: 10-11-2024 End: 10-11-2024 Office outpatient visit 25 minutes Farheen Edwards DO Work Phone: [facility] Comment on above: Type 2 diabetes erica itus with hyperglycemia, without long-term current use of insulin (HCC) (Primary Dx); Class 3 severe obesity due to excess calories with body mass index (BMI) of 40.0 to 44.9 in adult, unspecified whether serious comorbidity present; Palmoplantar pustulosis; Lichen planus Start: 10-11-2024 End: 10-11-2024 ambulatory [facility] Jose Alberto Start: 09-27-2024 End: 09-27-2024 Office outpatient new 30 minutes Farheen Edwards DO Work Phone: [facility] Comment on above: Encounter to [facility] with new doctor (Primary Dx); Type 2 diabetes mellitus with hyperglycemia, without long-term current use of insulin (HCC); Skin rash; Essential hypertension; Smoker; Other fatigue Start: 09-27-2024 End: 09-27-2024 ambulatory [facility] Start: 09-20-2024 End: 09-20-2024 Emergency department patient visit No Primary Care Physician -Emergency Department Work Phone: Start: 07-07-2024 End: 07-07-2024 Emergency department patient visit No Primary Care Physician -Emergency Department Work Phone: Start: 06-06-2023 End: 06-06-2023 ambulatory Roman Breaux Facility:[facility] Start: 06-06-2023 Non-patient / Non-visit DO Smooth holas Edwards Work Phone: [facility] Work Phone: Start: 05-15-2023 ambulatory Roman Breaux Faci lity:[facility] Start: 05-15-2023 Non-patient / Non-visit DO Smooth holas Edwards Work Phone: [facility] Start: 05-15-2023 ambulatory Roman Metcalfi lity:[facility] Start: 05-15-2023 End: 05-15-2023 ambulatory Roman Breaux Facility:[facility] Start: 05-15-2023 Non-patient / Non-visit DO Smooth holas Edwards Work Phone: [facility] Work Phone: Start: 05-15-2023 End: 05-15-2023 Admission to same day surgery center DO Chago Edwards Work Phone: [facility] Work Phone: Start: 05-15-2023 End: 05-15-2023 ambulatory DO Chago Palak Edwards Work Phone: [facility] Work Phone: Start: 04-17-2023 ambulatory Roman Breaux Faci lity:[facility] Start: 04-17-2023 End: 04-17-2023 ambulatory Roman Breaux Facility:[facility] Start: 04-17-2023 Non-patient / Non-visit DO Smooth holas Edwards [facility] Work Phone: Start: 04-17-2023 End: 04-17-2023 Admission to same day surgery center DO Chago Edwards Work Phone: [facility] Work Phone: Start: 04-17-2023 End: 04-17-2023 ambulatory DO Chago Palak Edwards Work Phone: [facility] Work Phone: Start: 03-26-2023 End: 03-26-2023 ambulatory Sagar Lema Facility:[facility] Start: 03-26-2023 End: 03-26-2023 Patient encounter procedure DO Chago Edwards Work Phone: [facility] (ACUTE) Work Phone: Start: 03-14-2023 End: 03-14-2023 ambulatory Roman Breaux Facility:[facility] Start: 03-14-2023 End: 03-14-2023 Non-patient / Non-visit DO Chago Edwards Work Phone: [facility] Work Phone: Start: 01-30-2023 End: 01-31-2023 ambulatory Shaunna Estevez Facility:[facility] Start: 01-30-2023 Non-patient / Non-visit DO Smooth holas Edwards Work Phone: [facility] Start: 01-30-2023 End: 01-30-2023 ambulatory DO Chago Palak Edwards Work Phone: [facility] Work Phone: Start: 01-30-2023 End: 01-30-2023 Patient encounter procedure DO Chago Edwards Work Phone: [facility] (ACUTE) Work Phone: Start: 01-06-2023 ambulatory Álvaro Valentine ity:[facility] Start: 01-05-2023 ambulatory Burt Blunt Facility :[facility] Start: 01-05-2023 Non-patient / Non-visit DO Smooth holas Edwards Work Phone: [facility] Start: 01-05-2023 Non-patient / Non-visit DO Smooth kessleras Edwards Work Phone: [facility] Work Phone: Start: 01-05-2023 End: 01-06-2023 Emergency department patient visit DO Chago Edwards Work Phone: [facility] Work Phone: Start: 01-03-2023 End: 01-04-2023 ambulatory [facility] Start: 01-03-2023 End: 01-03-2023 Patient encounter procedure DO Chago Edwards Work Phone: [facility] ([facility]) Work Phone: Start: 06-02-2022 Non-patient / Non-visit DO Smooth bedolla Edwards Work Phone: [facility] Start: 06-02-2022 End: 06-03-2022 Emergency department patient visit DO Chago Edwards Work Phone: [facility] Start: 12-18-2021 Non-patient / Non-visit DO Smooth bedolla Edwards Work Phone: [facility] Start: 12-17-2021 End: 12-18-2021 Emergency department patient visit DO Chago Edwards Work Phone: [facility] Start: 04-14-2021 End: 04-14-2021 Patient encounter procedure DO Chago Edwards Work Phone: [facility] Start: 11-10-2020 End: 11-10-2020 Emergency department patient visit CHAGO CID~[id number] [facility] Start: 06-30-2020 End: 06-30-[address] [facility] Start: 06-29-2020 Manual pelvic examination DO Chago Edwards Work Phone: [facility] Start: 05-29-2020 ambulatory AYAD WHITT [facility] Start: 05-29-2020 Encounter for genera l adult medical examination without abnormal findings CHAGO FRANKLIN PALAK~[id number] [facility] Start: 05-29-2020 End: 05-30-2020 ambulatory CHAGO FRANKLIN PALAK~[id number] [facility] Start: 05-29-2020 End: 05-29-2020 ambulatory CHAGO FRANKLIN PALAK~[id number] [facility] Start: 05-29-2020 ambulatory CHAGO CURTIS PALAK~[id number] [facility] Procedures Date Procedure Procedure Detail Performing Clinician Start: 02-07-2025 Hemoglobin glycosylated a1c Carter Thomson MD Work Phone: Start: 12-06-2024 Hepatitis C antibody measurement No [...] HCV Quant by PCR testing - HCVPCR #[id number] Non Reactive: < 0.8 Equivocal: >/= 0.8 [...] for Adults (1 - 1-dose 75+ series) [facility] Start: 2027 Zoster Vaccines (1 of 2) Zoster Vaccines (1 of 2) [facility] Start: 01-01-2027 Screening for malignant neoplasm of cervix [facility] Start: 02-07-2026 Hemoglobin A1c measurement Diabetes: Hemoglobin A1C [facility] Start: 11-01-2025 Glaucoma screening Diabetes: Retinopathy Screening [facility] Start: 09-27-2025 Depression Screening Depression Screening [facility] Start: 09-27-2025 Hemoglobin A1c measurement Diabetes: Hemoglobin A1C [facility] Start: 03-12-2025 End: 03-12-2025 Patient encounter procedure 03/12/2025 4:15 PM EST Office Visit [facility] [address] [id number] Carter Thomson MD [address] [place] [address] [facility] Start: 02-08-2025 End: 02-08-2027 Cardiac holter monitor (3-7 days) Cardiac holter monitor (3-7 days) [facility] Routine Heart palpitations Expected: 02/08/2025, Expires: 02/08/2027 [facility] Comment on above: Expected: 02/08/2025, Expires: Start: 02-07-2025 End: 02-07-2025 Patient encounter procedure 02/07/2025 3:45 PM EST Office Visit [facility] [address] [facility] [address] [place] [id number] Carter Thomson MD [address] [place] [address] [facility] Start: 02-07-2025 End: 02-07-2026 Comprehensive metabolic 1998 panel - Serum or Plasma Comprehensive metabolic panel Lab Routine Therapeutic drug monitoring Expected: 02/07/2025 (Approximate), Expires: 02/07/2026 [facility] Comment on above: Expected: 02/07/2025 (Approximate), Expi res: 02/07/2026 Start: 02-07-2025 End: 02-07-2026 Lipid 1996 panel - Serum or Plasma Lipid panel Lab Routine Type 2 diabetes mellitus with hyperglycemia, without long-term current use of insulin (HCC) Hypercholesteremia Expected: 02/07/2025 (Approximate), Expires: 02/07/2026 [facility] Work Phone: Comment on above: Expected: 02/07/2025 (Approximate), Expi res: 02/07/2026 Start: 02-07-2025 End: 02-07-2026 Microalbumin/Creatinin e panel in random Urine Microalbumin / creatinine, urine ratio Lab Routine Type 2 diabetes mellitus with hyperglycemia, without long-term current use of insulin (HCC) Expected: 02/07/2025 (Approximate), Expires: 02/07/2026 [facility] Comment on above: Expected: 02/07/2025 (Approximate), Expi res: 02/07/2026 Start: 01-19-2025 [facility] Start: 01-17-2025 End: 01-17-2025 Patient encounter procedure 01/17/2025 3:20 PM EDT Office Visit [facility] [place] [address] [place] [id number] Michelle Boyd PA-C [address] [place] [address] [facility] [place] Start: 12-13-2024 End: 12-13-2024 Patient encounter procedure [facility] Start: 12-13-2024 End: 02-12-2026 DBT Breast - bilateral screening Bilateral screening mammogram with tomosynthesis Imaging Routine Encounter for screening mammogram for malignant neoplasm of breast Expected: 12/13/2024, Expires: 02/12/2026 [facility] Work Phone: Comment on above: Expected: 12/13/2024, Expires: Start: 12-02-2024 Influenza vaccination [facility] [facility] Start: 10-11-2024 End: 10-11-2024 Patient encounter procedure 10/11/2024 3:45 PM EDT Office Visit [facility] [address] [place] [id number] Carter Thomson MD [address] [place] [address] [facility] Start: 09-20-2024 [facility] Start: 07-07-2024 [facility] Start: 05-15-2023 Advance diet as tolerated [facility] Start: 05-15-2023 Patient discharge [facility] Start: 05-15-2023 [facility] Start: 04-17-2023 Advance diet as tolerated [facility] Start: 04-17-2023 Patient discharge [facility] Start: 01-05-2023 Bacteria identified in Urine by Culture [facility] Start: 06-03-2022 [facility] Work Phone: Start: 2017 Screening for malignant neoplasm of breast Mammogram [facility]: 2007 Screening for malignant neoplasm of cervix [facility] Start: 1998 Screening for malignant neoplasm of cervix Pap Smear [facility] Start: 1996 DTaP/Tdap/Td Vaccines (1 - Tdap) DTaP/Tdap/Td Vaccines (1 - Tdap) [facility] Start: 1996 Hepatitis B Vaccines (1 of 3 - 19+ 3-dose series) Hepatitis B Vaccines (1 of 3 - 19+ 3-dose series) [facility] Start: 1996 Pneumococcal Vaccine: Pediatrics (0 to 5 Years) and At-Risk Patients (6 to 49 Years) (1 of 2 - PCV) Pneumococcal Vaccine: Pediatrics (0 to 5 Years) and At-Risk Patients (6 to 49 Years) (1 of 2 - PCV) [facility] Start: 1995 Diabetes: Estimated Glomerular Filtration Rate for Kidney Health Diabetes: Estimated Glomerular Filtration Rate for Kidney Health [facility] Start: 1995 Diabetes: Urine Albumin-Creatinine Ratio for Kidney Health Diabetes: Urine Albumin-Creatinine Ratio for Kidney Health [facility] Start: 1995 Hepatitis C screening Hepatitis C Screening [facility] Start: 1987 Diabetic foot examination Diabetes: Foot Exam [facility] Start: 1987 Glaucoma screening Diabetes: Retinopathy Screening [facility] Start: 1987 Preventive dental service Diabetes: Dental Exam [facility] Start: 1978 MMR Vaccines (1 of 1 - Standard series) MMR Vaccines (1 of 1 - Standard series) [facility] Start: 1977 HIV screening HIV Screening [facility] Start: 1977 Lipid panel Lipid Panel [facility] Start: 1977 Screening for malignant neoplasm of colon [facility] Bacteria identified in Blood by Culture Blood Culture [facility] Work Phone: Patient Education [facility] Work Phone: Patient referral [facility] Work Phone: Immunizations Immunization Date Immunization Notes Care Provider Fa cility 01-11-2023 influenza virus vacc ine, unspecified formulation Carter Thomson MD Work Phone: [facility] Payers Date Payer Category Payer Medicaid HMO [employer] [facility] [id number] 2023 Medicaid [id number] 2023 Self-pay [id number] 2012 Medicaid [id number] Unknown [id number] Unknown [id number] 2.16840.1.107530.3.579.2.1149 Unknown [id number] 2.16840.1.884305.3.579.2.1149 Unknown [id number] 2.16840.1.780188.3.579.2.1149 Unknown [id number] 2.840.1.570597.3.579.2.1149 Unknown [id number] 2.16840.1.290614.3.579.2.1149 Unknown [id number] 2.16840.1.086593.3.579.2.1149 Unknown [id number] 2.16840.1.346841.3.579.2.1149 Unknown [id number] 2.16840.1.255230.3.579.2.1149 Unknown [id number] 2.840.1.323997.3.579.2.1149 Unknown [id number] 2.16.840.1.931739.3.579.2.1149 Unknown [id number] 2.16.840.1.716640.3.579.2.1149 Unknown [id number] 2.16.840.1.367981.3.579.2.1149 Unknown [id number] 2.16.840.1.405294.3.579.2.1149 Unknown [id number] 2.16.840.1.047993.3.579.2.1149 Unknown [id number] 2.16.840.1.619706.3.579.2.1149 Unknown [id number] 2.16.840.1.895899.3.579.2.1149 Unknown [id number] 2.16.840.1.129470.3.579.2.1149 Unknown [id number] 2.16.840.1.419488.3.579.2.1149 Unknown [id number] 2.16.840.1.804833.3.579.2.1149 Unknown [id number] 2.16.840.1.884570.3.579.2.462 Unknown [id number] 2.16.840.1.343267.3.579.2.462 Unknown [id number] 2.16.840.1.061950.3.579.2.462 Unknown [id number] 2.16840.1.909901.3.579.2.462 Social History Date Type Detail Facility Start: 06-06-2021 End: 06-06-2023 Tobacco smoking status LAIS Current every day smoker [facility] Start: 1975 Sex Assigned At Female S [facility] Start: 01-06-2023 Tobacco smoking stat us LAIS Former smoker [facility] Start: 07-07-2024 End: 01-19-2025 Tobacco smoking status LAIS Current some day smoker [facility] Start: 06-27-2024 End: 07-07-2024 Sex Female (finding) [facility] Start: 09-27-2024 End: 12-13-2024 Tobacco smoking status NHIS Smokes tobacco daily [facility] History of tobacco use Cigarette Smoker [facility] Start: 09-27-2024 End: 12-13-2024 Tobacco use and exposure Smokeless tobacco non-user [facility] Start: 09-27-2024 End: 02-07-2025 History of Social function [facility] Start: 09-27-2024 End: 02-07-2025 B1300 Health Literacy [facility] How often do you nee d to have someone help you when you read instructions, pamphlets, or other written material from your doctor or pharmacy [SILS] Never [facility] Has [employer], or water [employer] threatened to shut off services in your home in past 12Mo No [facility] How many standard drinks containing alcohol do you have on a typical day? Patient does not drink [facility] Do you feel stress - tense, restless, nervous, or anxious, or unable to sleep at night because your mind is troubled all the time - these days [OSQ] Not at all [facility] (I/We) worried whe er (my/our) food would run out before (I/we) got money to buy more. Never true [facility] Start: 1975 Sex assigned at Not on file S [facility] Start: 10-11-2024 End: 02-07-2025 Alcoholic beverage intake Lifetime non-drinker (finding) [facility] History of tobacco use Passive smoker [facility] Medical Equipment Procedure Code Equipment Code Equipment Origin al Text Equipment Identifier Dates [id number], [id number], [id number], [id number], [id number] Start: 12-13-2024 End: 02-07-2025 Functional Status Date Assessment Result Facility 09-27-2024 Total score [AUDIT-C] 0 09/28/19 3:06 PM Reina Garrison RN [facility] 09-27-2024 Patient Health [facility] ionnaire 2 item (PHQ-2) [Reported] [facility] Clinical Notes 05-15-2023 to 02-09-2025 Assessment & Plan Note - Carter Thomson MD - 02/09/2025 2:36 PM ESTAssessment & Plan Note - Carter Thomson MD - 02/09/2025 2:36 PM Brayan Pack MA - 02/07/2025 3:45 PM ESTAttachments Note Date & Type Note Facility 02-09-2025 Evaluation + Plan note Associ ated Problem(s): Type 2 diabetes mellitus with hyperglycemia (HCC) -A1c 6.9% today. Continue Trulicity and metformin. Can consider increasing Trulicity at next visit. [facility] 02-09-2025 Miscellaneous Notes Associate d Problem(s): Type 2 diabetes mellitus with hyperglycemia (HCC) -A1c 6.9% today. Continue Trulicity and metformin. Can consider increasing Trulicity at next visit. documented in this encounter [facility] 02-09-2025 Miscellaneous Notes Associate d Problem(s): Type 2 diabetes mellitus with hyperglycemia (HCC) -A1c 6.9% today. Continue Trulicity and metformin. Can consider increasing Trulicity at next visit. documented in this encounter [facility] 02-07-2025 History of Presen t illness Narrative Pt asked if they have been to specialist,been in ER /hospitalized or had testing since last visit. YES, ER 01/24/25 Patient was able to ambulate safely to the examination room. Provider was not notified of possible fall risk Images from the original note were not included. [address] [facility] [address] Dept: [phone] Dept Loc: [phone] Visit type: Established patient Reason for Visit: Diabetes (Diabetes follow up, A1c) and Back Pain (Pt was in ER on 01/24/2025 for sciatica pain) Assessment and Plan 1. Type 2 diabetes mellitus with hyperglycemia, without long-term current use of insulin ([facility]) Assessment & Plan: -A1c 6.9% today. Continue Trulicity and metformin. Can consider increasing Trulicity at next visit. Orders: - AMB POC HEMOGLOBIN A1C - Lipid panel - Microalbumin / creatinine, urine ratio - Blood Glucose Monitoring Suppl (Blood Glucose Monitor System) w/Device kit; Use daily or as directed for monitoring of diabetes., Normal - glucose blood test strip; Test once a day, Normal - Lancets Thin misc; Testing once a day, Normal 2. Hypercholesteremia - Lipid panel 3. Therapeutic drug monitoring - Comprehensive metabolic panel 4. Strain of lumbar region, subsequent encounter - tiZANidine (Zanaflex) 4 MG tablet; Take 1 tablet (4 mg) by mouth every 6 hours as needed for muscle spasms for up to 10 days., Starting Mon02/07/2025, Until Mon02/17/2025 at 2359, Normal - lidocaine (Lidoderm) 5 % patch; Apply 1 patch topically daily. Apply to painful area 12 hours per day, remove for 12 hours., Starting Mon02/07/2025, Until Mon04/08/2025, Normal 5. Heart palpitations - Cardiac holter monitor (3-7 days) For her back pain, offered steroid injection at the site of tenderness but she defers at this time. She is agreeable to trying a different muscle relaxant, which she will take her first few doses before bed and understands they can cause drowsiness. She would like to continue trying stretches at home and will let us know if not improving over the next few weeks. Counseled on avoidance of all NSAIDs while taking PO diclofenac. She has been on diclofenac for some time now, which she takes for chronic back pain. Patient requesting letter that she can give to [employer]. Letter provided today. Patient was involved and agreeable in shared decision making. Follow up in about 4 weeks (around 03/07/2025) for back pain . Subjective HPI Amy Naidu is a 49 y.o. female patient that presents today for follow up. She reports compliance with all her medications including metformin and Trulicity and tolerating well. Continues to have intermittent heart flutter sensation that occur 2-3 times weekly and last less than 30 seconds. Typically occur when she is at rest. Denies associated symptoms of chest pain, dyspnea, light-headedness or vision changes. Symptoms are overall not too bothersome but has been noticing them for some time now. Back pain She reports new back pain that started 2-3 weeks ago. Pain starts on left mid-lower back and radiates down the back of her left leg. Denies any trauma or injuries to the area. Denies fevers, chills, bowel or bladder incontinence. She was seen in the [place] ED and discharged with cyclobenzaprine, which was not helpful. She has tried Tylenol, ibuprofen and ice which helped minimally. She has tried stretches and massaging the area, which did help some. Pain is bothersome and has been somewhat limiting her activity. Review of Systems Constitutional: Negative for chills and fever. Medications reviewed Medical history reviewed Allergies reviewed Objective BP 129/66 (BP Location: Left arm, Patient Position: Sitting, BP Cuff Size: Large adult) Pulse 78 Temp 36.5 C (97.7 F) (Temporal) Ht 5' 5 (1.651 m) Wt 238 lb (108 kg) LMP 01/07/2025 (Approximate) BMI 39.61 kg/m Last 3 weights: Wt Readings from Last 3 Encounters: 02/07/25 238 lb (108 kg) 12/13/24 243 lb 8 oz (110 kg) 10/11/24 243 lb 6.4 oz (110 kg) Physical Exam Constitutional: General: She is not in acute distress. Appearance: She is not ill-appearing. Comments: Appears to be in mild discomfort from back pain Cardiovascular: Rate and Rhythm: Normal rate and regular rhythm. Pulses: Normal pulses. Heart sounds: Normal heart sounds. No murmur heard. Pulmonary: Effort: Pulmonary effort is normal. No respiratory distress. Breath sounds: Normal breath sounds. No wheezing. Abdominal: General: Bowel sounds are normal. There is no distension. Palpations: Abdomen is soft. Musculoskeletal: Comments: Area of point tenderness on left lower back. No spinal or paraspinal tenderness. Data Reviewed and Summarized Office Visit on 02/07/2025 Component Date Value Ref Range Status Hemoglobin A1C 02/07/2025 6.9 (A) <=5.7 % Final Carter Thomson MD [facility] 02/09/25 2:36 PM documented in this encounter [facility] 02-07-2025 History of Presen t illness Narrative Pt asked if they have been to specialist,been in ER /hospitalized or had testing since last visit. YES, ER 01/24/25 Patient was able to ambulate safely to the examination room. Provider was not notified of possible fall risk Images from the original note were not included. [address] [facility] [address] Dept: [phone] Dept Loc: [phone] Visit type: Established patient Reason for Visit: Diabetes (Diabetes follow up, A1c) and Back Pain (Pt was in ER on 01/24/2025 for sciatica pain) Assessment and Plan 1. Type 2 diabetes mellitus with hyperglycemia, without long-term current use of insulin ([facility]) Assessment & Plan: -A1c 6.9% today. Continue Trulicity and metformin. Can consider increasing Trulicity at next visit. Orders: - AMB POC HEMOGLOBIN A1C - Lipid panel - Microalbumin / creatinine, urine ratio - Blood Glucose Monitoring Suppl (Blood Glucose Monitor System) w/Device kit; Use daily or as directed for monitoring of diabetes., Normal - glucose blood test strip; Test once a day, Normal - Lancets Thin misc; Testing once a day, Normal 2. Hypercholesteremia - Lipid panel 3. Therapeutic drug monitoring - Comprehensive metabolic panel 4. Strain of lumbar region, subsequent encounter - tiZANidine (Zanaflex) 4 MG tablet; Take 1 tablet (4 mg) by mouth every 6 hours as needed for muscle spasms for up to 10 days., Starting Mon02/07/2025, Until Mon02/17/2025 at 2359, Normal - lidocaine (Lidoderm) 5 % patch; Apply 1 patch topically daily. Apply to painful area 12 hours per day, remove for 12 hours., Starting Mon02/07/2025, Until Mon04/08/2025, Normal 5. Heart palpitations - Cardiac holter monitor (3-7 days) For her back pain, offered steroid injection at the site of tenderness but she defers at this time. She is agreeable to trying a different muscle relaxant, which she will take her first few doses before bed and understands they can cause drowsiness. She would like to continue trying stretches at home and will let us know if not improving over the next few weeks. Counseled on avoidance of all NSAIDs while taking PO diclofenac. She has been on diclofenac for some time now, which she takes for chronic back pain. Patient requesting letter that she can give to [employer]. Letter provided today. Patient was involved and agreeable in shared decision making. Follow up in about 4 weeks (around 03/07/2025) for back pain . Subjective HPI Amy Naidu is a 49 y.o. female patient that presents today for follow up. She reports compliance with all her medications including metformin and Trulicity and tolerating well. Continues to have intermittent heart flutter sensation that occur 2-3 times weekly and last less than 30 seconds. Typically occur when she is at rest. Denies associated symptoms of chest pain, dyspnea, light-headedness or vision changes. Symptoms are overall not too bothersome but has been noticing them for some time now. Back pain She reports new back pain that started 2-3 weeks ago. Pain starts on left mid-lower back and radiates down the back of her left leg. Denies any trauma or injuries to the area. Denies fevers, chills, bowel or bladder incontinence. She was seen in the [place] ED and discharged with cyclobenzaprine, which was not helpful. She has tried Tylenol, ibuprofen and ice which helped minimally. She has tried stretches and massaging the area, which did help some. Pain is bothersome and has been somewhat limiting her activity. Review of Systems Constitutional: Negative for chills and fever. Medications reviewed Medical history reviewed Allergies reviewed Objective BP 129/66 (BP Location: Left arm, Patient Position: Sitting, BP Cuff Size: Large adult) Pulse 78 Temp 36.5 C (97.7 F) (Temporal) Ht 5' 5 (1.651 m) Wt 238 lb (108 kg) LMP 01/07/2025 (Approximate) BMI 39.61 kg/m Last 3 weights: Wt Readings from Last 3 Encounters: 02/07/25 238 lb (108 kg) 12/13/24 243 lb 8 oz (110 kg) 10/11/24 243 lb 6.4 oz (110 kg) Physical Exam Constitutional: General: She is not in acute distress. Appearance: She is not ill-appearing. Comments: Appears to be in mild discomfort from back pain Cardiovascular: Rate and Rhythm: Normal rate and regular rhythm. Pulses: Normal pulses. Heart sounds: Normal heart sounds. No murmur heard. Pulmonary: Effort: Pulmonary effort is normal. No respiratory distress. Breath sounds: Normal breath sounds. No wheezing. Abdominal: General: Bowel sounds are normal. There is no distension. Palpations: Abdomen is soft. Musculoskeletal: Comments: Area of point tenderness on left lower back. No spinal or paraspinal tenderness. Data Reviewed and Summarized Office Visit on 02/07/2025 Component Date Value Ref Range Status Hemoglobin A1C 02/07/2025 6.9 (A) <=5.7 % Final Carter Thomson MD [facility] 02/09/25 2:36 PM INDIRECT SUPERVISION THIS SERVICE IS TO BE [...] and treatment plan. documented in this encounter [facility] 02-07-2025 Telephone encount er Note Last office visit: 12/13/24 Next office visit: 02/07/25 [facility] 02-07-2025 Miscellaneous Notes Formattin g of this note might be different from the original. Last office visit: 12/13/24 Next office visit: 02/07/25 documented in this encounter [facility] 02-05-2025 Telephone encount er Note Last office visit: 12/13/2024 Next office visit: 02/07/2025 [facility] 02-05-2025 Miscellaneous Notes Formattin g of this note might be different from the original. Last office visit: 12/13/2024 Next office visit: 02/07/2025 documented in this encounter [facility] 01-24-2025 Telephone encount er Note Last office visit: 12/13/2024 Next office visit: 02/07/2025 [facility] 01-24-2025 Miscellaneous Notes Formattin g of this note might be different from the original. Last office visit: 12/13/2024 Next office visit: 02/07/2025 documented in this encounter [facility] 01-19-2025 Discharge summary [facility] 12-27-2024 Telephone encounter Note Form atting of this note might be different from the original. Last office visit: 12/13/2024 Next office visit: 02/07/2025 [facility] 12-27-2024 Miscellaneous Notes Formattin g of this note might be different from the original. Last office visit: 12/13/2024 Next office visit: 02/07/2025 documented in this encounter [facility] 12-23-2024 Telephone encounter Note Form atting of this note might be different from the original. Last office visit: 12/13/24 Next office visit: 02/07/25 [facility] 12-23-2024 Miscellaneous Notes Formattin g of this note might be different from the original. Last office visit: 12/13/24 Next office visit: 02/07/25 documented in this encounter [facility] 12-15-2024 Evaluation + Plan note Associ ated Problem(s): Essential hypertension -BP elevated today. Patient has been taking metoprolol tartrate once daily. Will have her take this twice daily and plan to recheck BP at next visit. [facility] 12-15-2024 Miscellaneous Notes Associate d Problem(s): Essential [...] Has upcoming appointment. documented in this encounter [facility] 12-15-2024 Miscellaneous Notes Associate d Problem(s): Essential [...] Has upcoming appointment. documented in this encounter [facility] 12-15-2024 Evaluation + Plan note Associ ated Problem(s): Steatosis of liver -lovastatin not covered by insurance. Will switch to atorvastatin [facility] 12-15-2024 Evaluation + Plan note Associ ated Problem(s): Smoker -discussed smoking cessation. Agreeable to trying nicotine replacement products. Defers Chantix at this time [facility] 12-15-2024 Evaluation + Plan note Associ ated Problem(s): Type 2 diabetes mellitus with hyperglycemia (HCC) -ozempic was not covered. Increase Trulicity to 3 mg weekly. Recheck A1c at next visit. [facility] 12-15-2024 Evaluation + Plan note Associ ated Problem(s): Lichen planus -seen by dermatology. Has upcoming appointment. [facility] 12-13-2024 History of Presen t illness Narrative Images from the original note were not included. [address] [facility] [address] Dept: [phone] Dept Loc: [phone] Visit type: Established patient Reason for Visit: [...] is planning on following up with her university teacher for different medication. She had an eye exam at [facility] recently. Hypertension She reports improvement in [...] Data Reviewed and Summarized Carter Thomson MD [facility] 12/15/24 4:48 PM Pt asked if they have been to specialist,been in ER /hospitalized or had testing since last visit. Yes, [facility] and labs Patient was able to ambulate safely to the examination room. Provider was not notified of possible fall risk documented in this encounter [facility] 12-13-2024 History of Presen t illness Narrative Images from the original note were not included. [facility] [address] [facility] [address] Dept: [phone] Dept Loc: [phone] Visit type: Established patient Reason for Visit: [...] on the skin Every 24 hours., Starting 12/13/2024, Until 04/12/2025, Normal 4. Encounter for screening [...] is planning on following up with her university teacher for different medication. She had an eye exam at [facility] recently. Hypertension She reports improvement in [...] Data Reviewed and Summarized Carter Thomson MD [facility] 12/15/24 4:48 PM Pt asked if they [...] and treatment plan. documented in this encounter [facility] 12-09-2024 Telephone encounter Note Form atting of this note might be different from the original. Last office visit: 10/11/24 Next office visit: 12/13/24 [facility] 12-09-2024 Miscellaneous Notes Formattin g of this note might be different from the original. Last office visit: 10/11/24 Next office visit: 12/13/24 documented in this encounter [facility] 11-18-2024 Telephone encounter Note Form atting of this note might be different from the original. Last office visit: 10/11/24 Next office visit: 12/13/24 [facility] 11-18-2024 Miscellaneous Notes Formattin g of this note might be different from the original. Last office visit: 10/11/24 Next office visit: 12/13/24 documented in this encounter [facility] 10-25-2024 Telephone encounter Note Form atting of this note might be different from the original. Last office visit: 10/11/2024 Next office visit: 12/13/2024 [facility] 10-25-2024 Miscellaneous Notes Formattin g of this note might be different from the original. Last office visit: 10/11/2024 Next office visit: 12/13/2024 documented in this encounter [facility] 10-11-2024 History of Presen t illness Narrative Pt asked if they have been to specialist,been in ER /hospitalized or had testing since last visit. NO Patient was able to ambulate safely to the examination room. Provider was not notified of possible fall risk PT IS ACCOMPANIED BY HER PARTNER TO TODAY'S VISIT. Images from the original note were not included. [place] [address] [address] [facility] [address] Dept: [phone] Dept Loc: [phone] Visit type: Established patient Reason for Visit: [...] planus vs other. Her dermatology appointment within [facility] isn't scheduled until January. Will place an external referral where she can get a sooner appointment. Recently picked up prescription for Trulicity injections. Will place an order for Ozempic, which could be better for weight loss than Trulicity. 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 She does understand that she cannot take both injections at the same time. She will either picking crew supervisor the Ozempic OR continue Trulicity, then start [...] Data Reviewed and Summarized Carter Thomson MD [facility] 10/14/24 3:02 PM documented in this encounter [facility] 10-11-2024 History of Presen t illness Narrative Pt asked if they have been to specialist,been in ER /hospitalized or had testing since last visit. NO Patient was able to ambulate safely to the examination room. Provider was not notified of possible fall risk PT IS ACCOMPANIED BY HER PARTNER TO TODAY'S VISIT. Images from the original note were not included. [address] [address] Dept: [phone] Dept Loc: [phone] Visit type: Established patient Reason for Visit: [...] planus vs other. Her dermatology appointment within [facility] isn't scheduled until January. Will place an external referral where she can get a sooner appointment. Recently picked up prescription for Trulicity injections. Will place an order for Ozempic, which could be better for weight loss than Trulicity. 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 She does understand that she cannot take both injections at the same time. She will either picking crew supervisor the Ozempic OR continue Trulicity, then start [...] Data Reviewed and Summarized Carter Thomson MD [facility] 10/14/24 3:02 PM I saw and evaluated the patient, participating in the laurent portions of the service. I reviewed the resident s note. I agree with the resident s findings and plan. Lesions in mouth and skin most consistent with lichen planus Maury Dickerson MD documented in this encounter [facility] 10-11-2024 Instructions Carter Thomson MD - 10/11/2024 3:45 PM EDT [facility] The following attachments cannot be sent through Care Everywhere.Semaglutide, ADULT (Burundian)documented in this encounter [facility] 10-11-2024 Instructions Carter Thomson MD - 10/11/2024 3:45 PM EDT [facility] The following attachments cannot be sent through Care Everywhere.Semaglutide, ADULT (Burundian)documented in this encounter [facility] 09-29-2024 Evaluation + Plan note Associ ated Problem(s): Type 2 diabetes mellitus with hyperglycemia (HCC) -A1c 6.7% today. At goal. Continue current medications [facility] 09-29-2024 Miscellaneous Notes Associate d Problem(s): Type [...] becomes a concern. documented in this encounter [facility] 09-29-2024 Evaluation + Plan note Associ ated Problem(s): Smoker -Recommend cutting down on smoking, offered Chantix or Wellbutrin. Patient defers Chantix or Wellbutrin at this time. She has tried nicotine replacement products in the past which she states were not helpful. [facility] 09-29-2024 Evaluation + Plan note Associ ated [...] her clonidine if this becomes a concern. [facility] 09-27-2024 History of Presen t illness Narrative Images from the original note were not included. [address] [address] Dept: [phone] Dept Loc: [phone] Visit type: New patient Reason for Visit: New Patient (Establish care, Htn and DM2) Assessment and Plan 1. Encounter to establish care with new doctor 2. Type 2 diabetes mellitus with hyperglycemia, without long-term current use of insulin (HCC) Assessment & Plan: -A1c 6.7% today. At goal. Continue current medications Orders: - AMB POC HEMOGLOBIN A1C 3. Skin rash - [facility] 4. Essential hypertension Assessment & Plan: [...] C-sections. Breast reduction surgery. 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 documented in this encounter [facility] 09-27-2024 Instructions Carter Thomson MD - 09/27/2024 2:45 PM EDT Take metoprolol twice a day The following attachments cannot be sent through Care Everywhere.How to Keep Track of Your Heart Rate and Blood Pressure (Burundian)Checking Your Blood Pressure at Home (Burundian)documented in this encounter [facility] 09-20-2024 Discharge summary [facility] 09-20-2024 Hospital Discharge instructions Additional Instructions Your [...] water base lotion. Please follow-up with dermatology. [facility] Work Phone: 07-07-2024 Radiology Diagnostic study note [facility] [address], [place] [address] Soft Tissue Neck WITH Contrast MR#: [id number] Acct: [id number] Name: AMY NAIDU Rep #: [id number] : 1975 F 49 From: Barbara Tuttle MD PCP: Care Physician,No Primary Status: REG ER Study:Soft Tissue Neck WITH Contrast Date of Exam: 07/07/24 Exam# [id number] Ordering Dr: Elmira Quinonez PROCEDURE: SOFT TISSUE [...] and physical exam correlation recommended. Reading Location: [facility] CC: MAYNOR Zhu; No Primary Care Physician ~ Pneumatic Hoist Operator: Signed [facility] 05-15-2023 Progress note Note Date/Time May 15, 2023 7:48am [facility] [place] [address] Pre-Anesthesia Note Signed Patient: Amy Naidu MR#: [id number] : 1975 Acct: [id number] Age/Sex: 48 / F ADM Date: 4 0748 Loc: [facility]. Attending Dr: Roman Breaux D.O. cc: [...] No Would like to be referred to Nursery Hand for info?: No Smoking Status: Current every [...] high school graduate Spiritual Healthcare Practices: denies Orthodox Healthcare Practices: denies Cultural Healthcare Practices: denies [...] signed by Cata Boss M.D.> 05/15/23 0748 [facility] Work Phone: Chief complaint+Reason for visit Narrative* Chief Complaint referral/Block Headache Headache Reason for Visit Daytime sleepiness Fatigue Hypertension, poor control [facility] Work Phone: Discharge summary Author Kerry Rutherford [facility] Note Date/Time September 20, 2024 11:1 1am [facility] Medical Records Department [address] [place] [address] Emergency Department Summary 09/20/24 MR#: [id number] Acct: [id number] Name: AMY NAIDU Rep #:[id number] : [...] a course of Augmentin at that time. [facility] Medical History HTN (hypertension) Diabetes mellitus, [...] % (Auto) 66.2 Lymph % (Auto) 24.7 [place] % (Auto) 7.3 Eos % (Auto) 1.1 [...] Referrals: Bakari Tanner MD [Med Staff - Chain Maker Hand] - Care Physician,No Primary [Primary Care Provider] [...] lotion. Please follow-up with dermatology. Print Language: Burundian Disposition Disposition: Home, Self Care What to do if you have Problems For any increased pain, shortness of breath, bleeding, nausea or vomiting, chestpain, or any unexpected problems, contact your Primary Care Provider. Call [facility] ([phone]) or report to the closest Emergency Room. Call 911 if necessary. 09/20/24 1111 <Electronically signed by Kerry Rutherford DO> Cosigner Signature (if applicable): CC: No Primary Care Physician ~ Signed [facility] Work Phone: Discharge summary Author Michael Shah [facility] Note Date/Time January 19, 2025 1 2:20pm [facility] Medical Records Department [address] [facility] [place] [address] Emergency Department Summary 01/19/25 MR#: [id number] Acct: [id number] Name: AMY NAIDU Rep #:[id number] : 1975 49 From: Michael weston DO PCP: Care Physician,No Primary Status :REG ER Location: ED HPI History of Present Illness Chief Complaint: Back Narrative Narrative: Chief complaint and HPI: 49-year-old female with past medical history of HTN presents for evaluation of left-sided lumbar back pain. Onset of symptoms several days ago. Described as aching. She denies any trauma or injury. Denies numbness, weakness, urinary retention, stool or urinary incontinence, saddle anesthesia, recent invasive manipulation of the spine, intravenous drug use, or fever. Review of systems: See HPI Medications: As listed on the chart Allergies: As listed on the chart PFSH: Per chart Vital signs: As listed on the chart. Reviewed. Physical exam: Gen: A&O x3, NAD Head: Normocephalic, atraumatic Eyes: No sclera icterus, conjunctiva clear ENT: Moist mucous membranes Neck: Full range of motion, nontender CV: RRR, no murmurs Resp: Lungs CTA BL, no w/r/c GI: Abd soft, non-distended, non-tender, no r/r/g Musc: Full ROM, no deformity, no midline spinal tenderness, no bony step-off, no signs of trauma or infection, the paraspinal musculature on the left lumbar spine are tense-with palpation this recreates her pain, DP/PT pulses +2 bilaterally, no peripheral edema, compartments soft, normal capillary refill, strength +5/5 in all extremities, no saddle paresthesia Skin: Warm, dry Neuro: Alert, oriented, grossly intact, sensation intact Psych: Cooperative, appropriate mood and affect [facility] Medical History HTN (hypertension) Diabetes mellitus, [...] nerve pain #20 09/20/24 Unknown Rx caps cyclobenzaprine 5 mg tablet 5 mg PO TID PRN muscle spa sm 3 01/19/25 Unknown Rx days #9 tabs Allergy/AdvReac Type Severity Reaction Status Date / Time hydromorphone (From Dilaudid) Allergy Itching Verified 01/19/25 09:23 Social History Smoking Status: Current some day smoker tobacco type: cigarettes EXAM Physical Exam Const Vital Signs: 01/19/25 09:22 Temperature 98 F Temperature Source Oral Pulse Rate 82 Respiratory Rate 18 Blood Pressure 142/89 H Blood Pressure Mean 106 Pulse Ox 100 Oxygen Delivery Method Room Air MDM MDM MDM Narrative Medical decision making narrative: 49-year-old female with past medical history of HTN presents for evaluation of left-sided lumbar back pain. She denies any trauma or injury. There is nothing to suggest any infectious etiology. The patient is not an IV drug user. There isno neurologic findings to suggest an acute cauda equina syndrome, infectious etiology, or any acute radiculopathy. At this point I do not feel any emergent imaging such as x-rays or MRI are warranted. Patient symptoms will be treated with IM Toradol and Valium as a muscle relaxer. Suspect lumbar back spasm versus strain. On reevaluation, patient's pain has improved. She is comfortable discharging home. Will send her home with muscle relaxers as needed. Recommended ibuprofen and Tylenol. IcyHot, rest, heating pad as needed. Follow-up with primary care physician. She confirmed understand the plan. Patient discharged home. Impression: 1. Lumbar spasm Discharge Plan Triage Chief Complaint: Back ED Provider: Michael Shah Dx/Rx/DC Orders Clinical Impression: Back muscle spasm Instructions: ED Back Spasm, No Trauma Prescriptions: New cyclobenzaprine 5 mg tablet 5 mg PO TID PRN (Reason: muscle spasm) 3 Days Qty: 9 0RF No Action amoxicillin-pot clavulanate 875-125 mg tablet 1 tab PO BID Qty: 14 0RF clobetasol 0.05 % ointment 1 applic topical BID 14 Days Qty: 60 0RF cetirizine [Zyrtec] 10 mg tablet 10 mg PO DAILY Qty: 14 0RF gabapentin 100 mg capsule 100 mg PO BID PRN (Reason: nerve pain) Qty: 20 0RF Rx Instructions: Start with once a day for 2 to 3 days and then may increase to twice a day after that. Primary Care Provider: Care Physician,No Primary Referrals: Alexei Gutierrez MD [Med Staff - Active Staff, Family Practice] - 3-5 Days Activity Restrictions/Additional Instructions: You received a muscle relaxer here in the emergency department. Do not drive oroperate heavy machinery while taking muscle relaxer. Next muscle relaxer can betaken in 8 hours. Muscle relaxers can increase confusion, falls, weakness, fatigue. Received Toradol here in the emergency department, no ibuprofen for 8 hours. Afterwards okay for ibuprofen. Okay for Tylenol. IcyHot. Rest. Heating pad as needed. Follow-up with primary care physician. If you do not have a primary care physician follow-up with the one listed above. Return back to ED symptoms change or worsen. Print Language: Burundian Disposition Disposition: Home, Self Care What to do if you have Problems For any increased pain, shortness of breath, bleeding, nausea or vomiting, chestpain, or any unexpected problems, contact your Primary Care Provider. Call [employer] [facility] ([phone]) or report to the closest Emergency Room. Call 911 if necessary. 01/19/25 1120 <Electronically signed by Michael Shah DO> Cosmariveler Signature (if applicable): CC: No Primary Care Physician ~ Signed [facility] Work Phone: Evaluation note* Diagnosis Onset Date Resolution Status Daytime sleepiness noneactiv e Fatigue noneactive Hypertension, poor control n oneactive [facility] Work Phone: Evaluation noteNo assessment information available [facility] Work Phone: Evaluation note* Diagnosis Onset Date Resolution Status Low back pain noneactive [facility] Work Phone: Evaluation note* Diagnosis Onset Date Resolution Status Low back pain noneactive Abdominal pain acute Diverticulosis acute Hepatic steatosis acute Positive colorectal cancer s creening using Cologuard test acute Acute cystitis with hematuria noneactive Dysuria noneactive Positive colorectal cancer s creening using Cologuard test acute [facility] Work Phone: Evaluation note* Diagnosis Onset Date Resolution Status Low back pain noneactive Abdominal pain acute Diverticulosis acute Hepatic steatosis acute Positive colorectal cancer s creening using Cologuard test acute Acute cystitis with hematuria noneactive Dysuria noneactive Positive colorectal cancer s creening using Cologuard test acute Diverticulosis acute Hyperplastic colon polyp acu te [facility] Work Phone: Evaluation note* Diagnosis Encounter to establish care with new doctor- Primary Type 2 diabetes mellitus with hyperglycemia, without long-term current use of insulin (HCC) Skin rash Rash and other nonspecific skin eruption Essential hypertension Unspecified essential hypertension Smoker Tobacco use disorder Other fatigue [facility] Diagnosis Encounter to establish care with new doctor- Primary Type 2 diabetes mellitus with hyperglycemia, without long-term current use of insulin (HCC) Skin rash Rash and other nonspecific skin eruption Essential hypertension Unspecified essential hypertension Smoker Tobacco use disorder Other fatigue Type 2 diabetes mellitus with hyperglycemia, without long-term current use of insulin ([facility])- Primary Class 3 severe obesity due to excess calories with body mass index (BMI) of 40.0 to 44.9 in adult, unspecified whether serious comorbidity present Palmoplantar pustulosis Other psoriasis Lichen planus documented in this encounter [facility]* Diagnosis Encounter to establish care with [...] psoriasis Lichen planus documented in this encounter [facility] note* Diagnosis Encounter to establish care [...] nonalcoholic liver disease documented in this encounter [facility] note* Diagnosis Encounter to establish care [...] Unspecified essential hypertension documented in this encounter [facility] note* Diagnosis Encounter to establish care [...] Unspecified essential hypertension documented in this encounter [facility] note* Diagnosis Encounter to establish care [...] use disorder Essential hypertension Unspecified essential hypertension Type 2 diabetes mellitus with hyperglycemia, without long-term current use of insulin (HCC) [facility] Diagnosis Encounter to establish care [...] use disorder Essential hypertension Unspecified essential hypertension Type 2 diabetes mellitus with hyperglycemia, without long-term current use of insulin (HCC)- Primary Hypercholesteremia Pure hypercholesterolemia Therapeutic drug monitoring Encounter for therapeutic drug monitoring Strain of lumbar region, subsequent encounter Heart palpitations Palpitations [facility]* Diagnosis Encounter to establish care [...] use disorder Essential hypertension Unspecified essential hypertension Type 2 diabetes mellitus with hyperglycemia, without long-term current use of insulin (HCC)- Primary Hypercholesteremia Pure hypercholesterolemia Therapeutic drug monitoring Encounter for therapeutic drug monitoring Strain of lumbar region, subsequent encounter Heart palpitations Palpitations [facility] Author Roman Breaux [facility] April 17, 2023 9:09am Note Date/Time April 17, 2023 9 :09am [facility] [place] [address] [place] [address] General Surg History&Physical Signed Patient: Amy Naidu MR#: [id number] : 1975 Acct: [id number] Age/Sex: 47 / F ADM Date: 4 0908 Loc: [facility] Attending Dr: Roman Breaux D.O. cc: Roman [...] No Would like to be referred to Nursery Hand for info?: No Smoking Status: Current every [...] high school graduate Spiritual Healthcare Practices: none Orthodox Healthcare Practices: none Cultural Healthcare Practices: none [...] signed by Roman Breaux D.O.> 04/17/23 0909 [facility] Work Phone: History and physical note Author Roman Breaux [facility] May 15, 2023 8:22am Note Date/Time May 15, 2023 8:22am [place] [id number] History & Physical Update Signed Patient: Amy Naidu MR#: [id number] : 1975 Acct: [id number] Age/Sex: 48 / F ADM Date: 820 Loc: [facility] Attending Dr: Roman Breaux D.O. cc: Roman Breaux D.O.~ Review Pre-Op Review The H&P was reviewed, the patient was examined, and no change has occurred in the patient?s condition since the H&P was completed.: Yes Documented By: Roman Breaux D.O. 05/15/23820 Signed By: <Electronically signed by Roman Breaux D.O.> 05/15/23821 [facility] Work Phone: Hospital Discharge instructions Additional Instructions [...] received or have any concerns please call [phone] and we will be happy to assist you. Thank you for choosing [facility]. -You may receive a survey after your visit today at the Emergency Room. Your feedback is very important to me and the [facility] organization as a whole. We appreciate any feedback that you may have as this allows me and the [facility] team to continue to improve the care that we provide.[facility] Work Phone: Hospital Discharge instructions Additional Instructions Follow-up with ENT in 1 week if no improvement of your symptoms. Apply warm compresses to the area several times daily. You could also try sucking on sugar-free sour candy to help produce saliva.[facility] Work Phone: Hospital Discharge instructionsAdditional Instructions You received a muscle relaxer here in the emergency department. Do not drive or operate heavy machinery while taking muscle relaxer. Next muscle relaxer can be taken in 8 hours. Muscle relaxers can increase confusion, falls, weakness, fatigue. Received Toradol here in the emergency department, no ibuprofen for 8 hours. Afterwards okay for ibuprofen. Okay for Tylenol. IcyHot. Rest. Heating pad as needed. Follow-up with primary care physician. If you do not have a primary care physician follow-up with the one listed above. Return back to ED symptoms change or worsen.[facility] Work Phone: Instructions* Attachments The following attachments cannot be sent through Care Everywhere. * Atorvastatin, ADULT (Bur[place]ian) documented in this [facility] HealthInstructions* Attachments The following attachments cannot be sent through Care Everywhere. * Atorvastatin, ADULT (Bur[place]ian) documented in this [facility] HealthProgress note Author Tree Reardon [facility] April 17, 2023 8:41am Note Date/Time April 17, 2023 8 :39am [facility] [place] [address] Pre-Anesthesia Note Signed Patient: Amy Naidu MR#: [id number] : 1975 Acct: [id number] Age/Sex: 47 / F ADM Date: 4 0821 Loc: [facility] Attending Dr: Roman Breaux D.O. cc: Tree [...] No Would like to be referred to Nursery Hand for info?: No Smoking Status: Current every [...] high school graduate Spiritual Healthcare Practices: none Orthodox Healthcare Practices: none Cultural Healthcare Practices: none [...] signed by Tree Reardon D.O.> 04/17/23 0841 [facility] Work Phone: Progress note Author Cata Boss [facility] May 15, 2023 10:15am Note Date/Time May 15, 2023 10:15am [address] [address] Post Anesthesia Note Signed Patient: Amy Naidu MR#: [id number] : 1975 Acct: [id number] Age/Sex: 48 / F ADM Date: 4 1015 [facility] Att[facility] Dr: Roman Breaux D.O. cc: Cata Boss M.D.~ Anesthesia Post Op Evaluation Procedure Procedure: Procedures Operation Date: 05/15/23 08:30 Actual Procedure Side Surgeon noreen WARD Left [...] signed by Cata Boss M.D.> 05/15/23 1015 [facility] Work Phone: Reason for referral (narrative)No reason for referral information [facility] Work Phone: Summary Purpose Family History Relationship Condition Age at Onset Recorded Date/T maria c Not Specified Diabetes mellitus Unknown Advance Directives Advance Directive Response Recorded Date/ Time Advance [...] Do you have a Healthcare Power of Drawer Upfitter? No July 07, 2024 12:02pm Advance Directive Response Recorded Date/ Time Living Will No July 07, 2024 12:02pm Do you have a Healthcare Power of Drawer Upfitter? No July 07, 2024 12:02pm Do you have a Healthcare Power of Drawer Upfitter? No September 20, 2024 8:58am Advance Directive Response Recorded Date/ Time Do you have a Healthcare Power of Drawer Upfitter? No September 20, 2024 8:58am [facility] Directive Response Recorded Date/ Time Do you have a Healthcare Power of Drawer Upfitter? No January 19, 2025 8:34am Chief Complaint and Reason for Visit Chief [...] 2024 8:45 am PLEASE FAX RESULTS TO [facility] [phone] December 06, 2024 2:12pm Chief Complaint Admit Date PLEASE FAX RESULTS TO [facility] [phone] December 06, 2024 2:12pm Back pain January 19, 2025 9 :21am Additional Source Comments INFORMATION SOURCE (unrecogn ized section and content) DATE CREATED AUTHOR 06/25/2019 [facility] DATE CREATED AUTHOR AUTHOR'S ORGANIZ ATION 07/01/2020 [facility] DATE CREATED AUTHOR AUTHOR'S ORGANIZ ATION 05/27/2021 [facility] DATE CREATED AUTHOR AUTHOR'S ORGANIZ ATION 06/10/2023 [facility] DATE CREATED AUTHOR AUTHOR'S ORGANIZ ATION 01/24/2025 [facility] DATE CREATED AUTHOR AUTHOR'S ORGANIZ ATION 02/13/2025 [facility] Goals (unrecognized section and [...] Breaux , DO Attending Provider Active [place] Primary Care Provider Active Team Status: Inactive [...] DO Attending Provider, Other Prov ider Active [place] Primary Care Provider Active Team Status: Inactive Member Role Status Dates [facility] Primary Care Provider Active Roman Breaux , DO Attending Provider Active Team Status: Active Member Role Status Dates [facility] Primary Care Provider Active Roman Breaux , DO Attending Provider Active Team Status: Active Member Role Status Dates [facility] Primary Care Provider Active Roman Breaux , [...] September 20, 2024 Dr. Kerry Rutherford , Emergency Provider Active Start: September 20, 2024 End: September 20, 2024 Merchandise Execution Leader Relationship Specialty Start Date End Date Carter Thomson MD [address] [place] [address] PCP - General 09/27/24 Merchandise Execution Leader Relationship Specialty Start Date End Date Carter Thomson MD [address] [place] [address] PCP - General 09/27/24 Merchandise Execution Leader Relationship Specialty Start Date End Date Carter Thomson MD [address] [place] [address] PCP - General 09/27/24 Merchandise Execution Leader Relationship Specialty Start Date End Date Carter Thomson MD [address] [place] [address] PCP - General 09/27/24 Merchandise Execution Leader Relationship Specialty Start Date End Date Carter Thomson MD [address] [place] [address] PCP - General 09/27/24 Merchandise Execution Leader Relationship Specialty Start Date End Date Carter Thomson MD [address] [place] [address] PCP - General 09/27/24 Merchandise Execution Leader Relationship Specialty Start Date End Date Carter Thomson MD [address] [place] [address] PCP - General 09/27/24 Merchandise Execution Leader Relationship Specialty Start Date End Date Carter Thomson MD [address] [place] [address] PCP - General 09/27/24 Merchandise Execution Leader Relationship Specialty Start Date End Date Carter Thomson MD [address] [place] [address] PCP - General 09/27/24 Team Status: Active Member Role/Relationship Status Dates CARTER THOMSON Primary care physician Active Team Status: Inactive Member Role/Relationship Status Dates No Primary Care Physician Primary care physician Activ e Start: September 20, 2024 End: September 20, 2024 Dr. Kerry Rutherford , Attending physician Active Start: September 20, 2024 [...] December 06, 2024 End: December 06, 2024 Merchandise Execution Leader Relationship Specialty Start Date End Date Carter Thomson MD [address] [place] [address] PCP - General 09/27/24 Merchandise Execution Leader Relationship Specialty Start Date End Date Carter Thomson MD [address] [place] [address] PCP - General 09/27/24 Team Status: Active Member Role/Relationship Status Dates No Primary Care Physician Primary care physician Activ e Team Status: Inactive Member Role/Relationship Status Dates BERTO MACHADO Primary care physician Active Star t: December 06, 2024 End: December 06, 2024 MAYNOR Post Attending physician Active St art: December 06, 2024 End: December 06, 2024 MAYNOR Post Referring Provider Active Sta rt: December 06, 2024 End: December 06, 2024 Team Status: Inactive Member Role/Relationship Status Dates No Primary Care Physician Primary care physician Activ e Start: January 19, 2025 End: January 19, 2025 Dr. Michael Shah , Attending physician Active Start: January 19, 2025 End: January 19, 2025 Dr. Michael Shah , Emergency Department Physician Active Start: January 19, 2025 End: January 19, 2025 Merchandise Execution Leader Relationship Specialty Start Date End Date Carter Thomson MD [address] [place] [address] PCP - General 09/27/24 Merchandise Execution Leader Relationship Specialty Start Date End Date Carter Thomson MD [address] [place] [address] PCP - General 09/27/24 Reason for Visit (unrecogniz ed section and [...] Reason Onset Date Comments Med Refill 12/27/2024 Reason Onset Date Comments Med Refill 02/05/2025 Reason Onset Date Comments Med Refill 02/07/2025 Reason Comments Diabetes Diabetes follow up, A1c Back Pain Pt was in ER on 01/02 for sciatica pain FOR RECORDS PERTAINING TO PATIENTS WHO ARE [...] BE BASED ON THE PRIMARY CLINICAL RECORDS. [employer] provides no warranty or guarantee of the accuracy or completeness of information in this document.
[2025-03-12 18:23] VITALS: BP 168/110; PULSE 83; RESP 16; TEMP 36.6; O2SAT 99
--- NOTE | 2025-03-12 18:34 | ED.RN ---
discharge blood pressure was reported to Dr. Swanson. Physician stated patient was safe to go home due to increased pain and the patient states she has two blood pressure medications to take at home.
== END 2025-03-12 18:35 | disposition home or self-care (01) ==
LOC: ED 17:59
PROVIDERS: Emergency Provider Emergency Medicine; Visit Provider Emergency Medicine
DX: M54.9 Dorsalgia, unspecified (principal); E11.9 Type 2 diabetes mellitus without complications; G89.29 Other chronic pain; F17.210 Nicotine dependence, cigarettes, uncomplicated
CPT/HCPCS: 99283